=== PATIENT | male | born 1955 | race Caucasian/White ===

== ENCOUNTER 2023-07-07 09:30 | Inpatient (IN) ==
--- NOTE | 2023-07-07 09:55 | Emergency Department Note ---
Impression & Plan Elevated LFTs, Acute kidney injury superimposed on CKD, Acidosis ED Provider Note NAME: JACOB WANG AGE: 67 SEX: M : 1955 ARRIVES VIA: Walk-In INFORMANT: Patient, ED PROVIDER(S): Lazarus Fierro DO CHIEF COMPLAINT: Abnormal liver studies HPI: The patient is a 67-year-old male who presented to the emergency department for evaluation of abnormal liver studies. The patient is currently being treated for kidney cancer. He was seen at the cancer center today. He has been fatigued recently. He was supposed to present for immunotherapy. He had some laboratory studies which showed very elevated liver studies. He was sent to the ER for admission. ROS: See above HPI for pertinent positives & negatives. A total of 10 systems reviewed and were otherwise negative. PAST MEDICAL HISTORY: See Below PAST SURGICAL HISTORY: See Below FAMILY HISTORY: See Below SOCIAL HISTORY: See Below HOME MEDICATIONS: See Below ALLERGIES: See Below VITALS: See Below PHYSICAL EXAMINATION: GENERAL: Patient is awake alert in no acute distress patient is resting comfortably and showing no signs of anxiety EYES: The conjunctivae are clear. The pupils are round and reactive. EARS, NOSE, MOUTH AND THROAT: The nose is without any evidence of any deformity. NECK: The neck is nontender and supple. RESPIRATORY: Normal respiratory effort is noted there is no evidence of wheezing rhonchi or rales CARDIOVASCULAR: Regular rate and rhythm noted there no murmurs rubs or gallops normal S1 normal S2. GASTROINTESTINAL: The abdomen is soft. Abdomen is nontender. MUSCULOSKELETAL/EXTREMITIES: There is no evidence of gross deformity full range of motion is noted in the hips and shoulders. SKIN: There is pedal edema noted bilaterally. Skin is warm and dry.. NEUROLOGIC: Patient is awake alert and oriented x3 MEDICAL DECISION MAKING: The patient is a 67-year-old male who presented to the emergency department for an evaluation of abnormal LFTs. The patient is receiving immunotherapy for renal cancer. The patient was sent to the emergency department for further evaluation as well as admission. The patient's oncologist did talk to the [facility] hospitalist. I discussed the patient's laboratory and radiographic studies with him. I discussed his condition with the on-call [facility] hospitalist. They have agreed to evaluate the patient in the emergency department for further management and disposition. Ultimately he was found to have an elevation in his creatinine as well. He was found to have acidosis. Triage Nursing notes reviewed. Prior medical records reviewed Vital Signs: reviewed and remarkable for tachycardia. Differential diagnosis: Infection, dehydration, metabolic abnormality, hypo/hyperglycemia, electrolyte disturbance, anemia, hypoxia, cardiac sources, intracerebral event, toxicologic, neurologic, as well as other pathologies. ER treatment provided: See below Diagnostics interpreted by me: ECG: EKG was obtained in the emergency department. My interpretation is atrial fibrillation at 97 bpm. PVCs were noted. There is no acute ST segment abnormalities noted. Incomplete right bundle-branch block pattern was noted. No previous tracing was available. Cardiac Monitoring: An order was placed for continuous cardiac monitoring. The monitor shows a rate of 101 bpm with atrial fibrillation. Laboratory studies: As stated above and show below. Imaging studies: See below. Radiographic imaging was reviewed by myself Consultation(s): I discussed this case with Dr. Funez who is on-call for the [facility] hospitalist group Past Med/Surg History Medical History Hypercholesterolemia Hypertension Hypothyroidism Surgical History S/p nephrectomy Family History Mother Cancer mother - bowel Social History Smoking Status: Never smoker Preferred Language: Vincentian Current Living Situation: Spouse current occupational status: employed Feels Safe at Home: Yes Allergies Allergies Allergy/AdvReac Type Severity Reaction Status Date / Time No Known Allergies Allergy Verified 05/20/23 14:12 Home Meds Home Medications Medication Instructions Recorded Confirmed apixaban 5 mg tablet 5 mg PO BID #60 tabs 11/11/18 07/07/23 furosemide 40 mg tablet 40 mg PO .COMPLEX 11/11/18 07/07/23 metoprolol tartrate 25 mg tablet 25 mg PO BID #180 tabs 11/11/18 07/07/23 multivitamin 1 tab PO DAILY 11/11/18 07/07/23 tadalafil 20 mg tablet 20 mg PO .COMPLEX PRN Other 11/11/18 07/07/23 glucosamine sulfate 1,000 mg tablet 2,000 mg PO BID 08/30/20 07/07/23 cholecalciferol (vitamin D3) 50 2,000 unit PO DAILY #30 tabs 10/15/22 07/07/23 mcg (2,000 unit) tablet levothyroxine 150 mcg tablet 200 mcg PO DAILY #30 tabs 10/15/22 07/07/23 rosuvastatin 20 mg tablet (Crestor) 10 mg PO DAILY 12/17/22 07/07/23 amoxicillin 500 mg capsule 2,000 mg PO UD PRN dental tripp. 07/07/23 07/07/23 betamethasone, augmented 0.05 % 1 applic topical BID PRN Other 07/07/23 07/07/23 topical cream Previous Rx's Medication Instructions Recorded losartan 100 mg tablet 100 mg PO DAILY #90 tabs 12/23/22 empagliflozin 10 mg tablet 10 mg PO DAILY #90 tabs 04/08/23 Results & Data (ED) Vital Signs Vital Signs - 24 hr 07/07/23 09:31 07/07/23 09:39 07/07/23 09:50 Temperature 36.3 C L Temperature Source Temporal Artery Scan Pulse Rate 106 H Respiratory Rate 18 Respiratory Effort / Characteristics Non-Labored Spontaneous Respiratory Depth Normal Blood Pressure 109/75 Blood Pressure Mean 86 Pulse Oximetry 95 95 Oxygen Delivery Method Room Air Room Air Sepsis New/Unexplained Change in Mental Status No Sepsis Action Taken by Nursing No Action Required 07/07/23 10:00 Temperature Temperature Source Pulse Rate 101 H Respiratory Rate Respiratory Effort / Characteristics Respiratory Depth Blood Pressure Blood Pressure Mean Pulse Oximetry Oxygen Delivery Method Sepsis New/Unexplained Change in Mental Status Sepsis Action Taken by [facility] Medications Current Medication List: was personally reviewed by me Laboratory Data Attestation: I reviewed the patient's lab results. 07/07/23 10:30 07/07/23 10:30 Lab Results 07/07/23 Range/Units 10:30 WBC 5.44 (4.8-10.8) K/ul RBC 4.61 L (4.70-6.10) M/uL Hgb 12.6 L (14.0-18.0) g/dl Hct 38.5 L (42.0-52.0) % MCV 83.5 (80.0-100.0) fL MCH 27.3 (25.0-34.0) pg MCHC 32.7 (32.0-36.0) g/dL RDW Std Deviation 55.7 H (36.4-46.3) fL RDW Coeff of Nick 18.5 H (11.5-14.5) % Plt Count 147 (130-400) K/uL MPV 11.3 (9.4-12.4) fL Immature Gran % (Auto) 1.1 % Neut % (Auto) 75.0 % Lymph % (Auto) 14.3 % [place] % (Auto) 7.2 % Eos % (Auto) 1.5 % Baso % (Auto) 0.9 % Neut # (Auto) 4.08 (1.40-6.50) K/uL Lymph # (Auto) 0.78 L (1.20-3.40) K/uL [place] # (Auto) 0.39 (0.11-0.59) K/uL Eos # (Auto) 0.08 (0.00-0.50) K/uL Baso # (Auto) 0.05 (0.00-0.20) K/uL Immature Gran # (Auto) 0.06 (0.01-0.20) K/uL PT 13.0 H (9.0-12.0) Seconds INR 1.2 H (0.9-1.1) APTT 57 H (21-31) Seconds PTT Ratio 2.0 Sodium 133 L (136-145) mmol/L Potassium 4.8 (3.5-5.1) mmol/L Chloride 106 (98-107) mmol/L Carbon Dioxide 15 L (21-32) mmol/L Anion Gap 12 H (3-11) BUN 105 H (6-23) mg/dl Creatinine 6.15 H* (0.6-1.4) mg/dl Est Cr Clr Drug Dosing 17.8 ml/min Est GFR ( Amer) 9.9 ml/min Est GFR (Non-Af Amer) 8.5 ml/min BUN/Creatinine Ratio 17.1 (10-20) Glucose 197 H (70-99(Fasting)) mg/dl Calcium 10.3 (8.6-10.3) mg/dl Total Bilirubin 1.1 H (0.2-1.0) mg/dl Direct Bilirubin 0.5 H (0-0.2) mg/dl AST 429 H (13-39) U/L ALT 462 H (7-52) U/L Alkaline Phosphatase 323 H (34-104) U/L Troponin I High Sens 43.0 H (0-20) pg/ml Total Protein 6.4 (6.0-8.3) gm/dl Albumin 2.9 L (3.4-5.0) gm/dl Globulin 3.5 (2.5-4.0) gm/dl Albumin/Globulin Ratio 0.8 L (0.9-2) Lipase 369 H (11-82) U/L Acetaminophen < 3 L (10-30) ug/ml Administered Medications Lactated Ringer's (Lr) 1,000 mls @ 999 mls/hr IV .Q1H1M ONE Stop: 07/07/23 12:30 Last Admin: 07/07/23 11:41 Dose: 999 mls/hr Documented By: MERVAT Discontinued Medications Methylprednisolone (Methylprednisolone 125 Mg/2 Ml Vial) 75 mg IV NOW STA Stop: 07/07/23 11:07 Last Admin: 07/07/23 11:42 Dose: 75 mg Documented By: MERVAT Imaging Data Attestation: I personally reviewed and interpreted this imaging study as follows: My Impression: Ultrasound of the right upper quadrant was obtained in the emergency department. My interpretation was no large ascites, final report below. Radiologist's Impression: Gallbladder Ultrasound 07/07/23 09:50 ULTRASOUND RIGHT UPPER QUADRANT ABDOMEN CLINICAL HISTORY: Elevated hepatic transaminases. COMPARISON STUDY: No priors. TECHNIQUE: Real-time, grayscale, and color flow sonography of the right upper quadrant of the abdomen was performed. Images are reviewed in the transverse and longitudinal planes. FINDINGS: Liver: The liver is enlarged and demonstrates heterogeneous increased echotexture indicating steatosis. There is no intrahepatic biliary ductal dilatation. The main portal vein is patent. Gallbladder: The gallbladder is contracted and no dilated. The wall appears thickened. No shadowing gallstones are clearly identified. There is no pericholecystic fluid. A sonographic Carter's sign is reportedly absent. The common bile duct measures up to 0.7 cm in diameter. Pancreas: Visualized portions of the pancreatic head and body are normal in appearance. Right kidney: The right kidney is not identified and reported surgically absent. Ascites: None. Pleural spaces: Trace right pleural effusion is noted. IMPRESSION: 1. Hepatomegaly with hepatic steatosis. 2. The gallbladder is contracted and the wall appears thickened. This is nonspecific and not well evaluated. Correlate clinically. 3. No shadowing gallstones are identified and there is no convincing sonographic evidence of acute cholecystitis. 4. Right pleural effusion. ACT 112: Negative or not required by law. Electronically signed by: Vladimir Yen M.D. 07/07/2023 11:11 AM Discharge Plan Visit Data Chief Complaint: Abnormal Labs/Diagnostic Testing Stated Complaint: REF BY [facility], ABN LABS ED Provider: Lazarus Fierro Discharge Problem: Elevated LFTs, Acute kidney injury superimposed on CKD, Acidosis Patient Disposition: Admitted As Inpatient Discharge Instructions Interventions: ED Discharge Assessment Last Done: 07/07/23 10:55
--- NOTE | 2023-07-07 10:33 | History & Physical Report ---
Date of Service July 07, 2023 Assessment & Plan (1) Elevated LFTs: Plan: -Admit to the PCU on tele -Currently stable and non-toxic appearing -[facility] due to concerns for immunotherapy induced hepatitis -LFT's this am noted to have a total bili of 1.2, ALT of 458, AST of 427, and alk phos of 323 -RUQ US has been obtained and is in process, will follow -Will follow CBC, CMP, PT/INR, lactate, ABG, acute hepatitis panel, tylenol level, and high sen trop ordered at the time of admission -Spoke with Dr. Grijalva, appreciate her help, recommends admission to start 1mg/kg Solu-medrol daily >Will start 75 mg IV Solu-Medrol BID for now -Oncology consult ordered -Avoid hepatotoxic agents -If LFT's are not improving on current treatment plan, could consider tick borne panel for further evaluation -Monitor daily LFTs -Home Elqiuis for DVT PPX if renal function has not declined further since this am -HH/DMII diet with 2gm sodium restriction and low potassium until renal function is stable -AM CBC, CMP, mag, PT/INR (2) Acute kidney injury superimposed on CKD: Plan: -Cr noted to be 6.11 with BUN of 105 on outpatient CMP prior to ED arrival -Baseline Cr is ~3.5, per last Nephrology clinic note on 05/20/23 -Patient appears dehydrated on exam with reported poor oral intake and ongoing lasix/Jardiance use over the past 2 weeks -Likely pre-renal in nature but cannot rule out intrinsic or obstructive etiology at this time -Will obtain a bladder scan to monitor for retention -Will give 1L LR bolus now then begin maintenance LR until his PO intake improves -Monitor volume status and intake/output closely moving forward -Monitor daily renal function and electrolytes -If his kidney function does not improve would consult Nephrology (3) High anion gap metabolic acidosis: Plan: -AG noted to be 12 with bicarb of 14 on outpatient am CMP prior to ED arrival -AG still at 12 with bicarb of 15 on repeat CMP -Looks clinically well -Will obtain stat lactate and abd for further evaluation -Likely due to dehydration -Will start IV fluids per MARILEE plan (4) Hyperglycemia: Plan: -Noted to be hyperglycemic at 249 this am prior to ED admission -BSG of 197 on repeat labs in the ED -Patient's last Hgb A1c on 06/26/23 was 6.3 -Was started on Jardiance for his CHF and CKD -Hold Jardiance for now -Monitor BSG q6h until stable, goal is 110-160 on IV steroids -Will start 5 units lantus BID -Start CF of 30 and CR of 10 q6h for now -Pharmacy glycemic consult placed for increased risk of ongoing hyperglycemic with IV steroid treatment (5) Generalized weakness: Plan: -Likely due to dehydration, MARILEE, elevated LFT's, and current renal cell carcinoma on immunotherapy -No infectious signs/symptoms at this time -Continue to monitor for improvement with treatment of his acute medical issues (6) Hypothyroidism: Plan: -Continue levothyroxine (7) Renal cell carcinoma: Plan: -Oncology consult placed to follow while admitted -Last dose of immunotherapy was on 06/16/23, was supposed to have 4th cycle this am -Continue to follow with Oncology on discharge (8) Hypertension: Plan: -Stable -Holding lasix and Jardiance with MARILEE and dehydration -Will hold losartan for now with soft BP on arrival -Can continue metoprolol for now (9) Heart failure with preserved ejection fraction: Plan: -Currently dehydrated on exam -Hold lasix and Jardiance -Continue IV hydration overnight -Monitor volume status closely moving forward (10) SARAH (obstructive sleep apnea): Plan: -HS CPAP ordered Plan The patient was discussed with Dr. Yeboah at the time of the admission History of Present Illness Chief Complaint: Abnormal outpatient labs Primary Care Provider: Veronica Tucker MD [place] is a 67 year old male with a PMH significant for Renal cell carcinoma S/P radical right nephrectomy in 2009 (on Nivolumab and Ipilimumab), aortic stenosis S/P TAVR in November of 2022, afib (on eliquis), hypothyroidism, stage IV CKD, SARAH on CPAP, HFpEF, and HTN who presented to the [facility] ED on 07/07/23 [facility] due to concerns for elevated LFTs. History obtained [facility] who explained that the patient was supposed to receive his next dose of immunotherapy today but this was held due to elevated LFTs on pre-treatment labs. High suspicion for immunotherapy induced hepatitis. On arrival to the ED the patient was noted to be tachycardic at 106 but otherwise stable. CMP from this am prior to ED arrival was significant for a Cr of 6.11 (baseline is ~3.5 per last Nephrology note), BUN of 105, AG of 12 with bicarb of 14, corrected sodium of 133, glucose of 249, total bili of 1.2, AST of 427, ALT of 458, alk phos of 323, with acute hepatitis panel in process. RUQ US was obtained but is in process. At the time of the exam the patient was sitting in bed in no acute distress with his bedside, history was obtained from both. Over the past 2 weeks the patient has been experiencing progressive generalized weakness and malaise. Oral intake has been poor over this time, he continue to take all medications as prescribed including his lasix and Jardiance. Denies recent fever, chills, chest pain, cough, congestion, sore throat, abd pain, nausea, vomiting, diarrhea, dysuria, hematuria, decreased urine output, increased LE swelling, and recent trauma. Denies excessive acetaminophen use and has not used NSAID's recently. He is a full code and his is his POA. Please refer to Dr. Yeboah's attestation for any changes to the treatment plan Allergies Allergy/AdvReac Type Severity Reaction Status Date / Time No Known Allergies Allergy Verified 05/20/23 14:12 Home Medications Medication Instructions Recorded Confirmed Type apixaban 5 mg tablet 5 mg PO BID #60 tabs 11/11/18 07/07/23 History furosemide 40 mg tablet 40 mg PO .COMPLEX 11/11/18 07/07/23 History metoprolol tartrate 25 mg tablet 25 mg PO BID #180 tabs 11/11/18 07/07/23 History multivitamin 1 tab PO DAILY 11/11/18 07/07/23 History tadalafil 20 mg tablet 20 mg PO .COMPLEX PRN Other 11/11/18 07/07/23 History glucosamine sulfate 1,000 mg tablet 2,000 mg PO BID 08/30/20 07/07/23 History cholecalciferol (vitamin D3) 50 2,000 unit PO DAILY #30 tabs 10/15/22 07/07/23 History mcg (2,000 unit) tablet levothyroxine 150 mcg tablet 200 mcg PO DAILY #30 tabs 10/15/22 07/07/23 History rosuvastatin 20 mg tablet (Crestor) 10 mg PO DAILY 12/17/22 07/07/23 History losartan 100 mg tablet 100 mg PO DAILY #90 tabs 12/23/22 07/07/23 Rx empagliflozin 10 mg tablet 10 mg PO DAILY #90 tabs 04/08/23 07/07/23 Rx amoxicillin 500 mg capsule 2,000 mg PO UD PRN dental tripp. 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: No Beliefs That Will Affect Care: None Current Living Situation: Spouse current occupational status: employed Feels Safe at Home: Yes Safety Concerns: Feels Safe At This Time Physical Exam Physical Exam: Physical Exam: General: In no acute distress, stated age, non-toxic appearing HEENT: Normocephalic, atraumatic, no scleral icterus, pupils around round, symmetrical, and reactive to light, dry mucus membranes, trachea midline, no thyromegaly Chest/Pulm: No respiratory distress, symmetrical chest expansion, clear breath sounds throughout Cardiac: irregular rate and rhythm, 3/6 systolic murmur noted in the aortic region Abdomen: Negative for ascites and bruising, normoactive bowel sounds, soft, non-tender to palpation throughout Musculoskeletal: Symmetrical and without signs of acute trauma, upper and lower extremities with full ROM, no atrophy, spasticity, or flaccidity Extremities: Radial, dorsalis pedis, and posterior tibial pulses are intact and symmetrical, no edema noted in the BL LE's Skin: Warm, dry, no rashes , lesions, or scars noted Neuro: Alert and oriented to person, place, month, year, and president, no focal defects, no tremors noted Psych: No acute distress, calm and cooperative during the exam Results & Data Results & Data Vital Signs (Past 12 Hours) Vital Signs Temp Pulse Resp BP Pulse Ox O2 Del Method 07/07/23 10:00 101 H 07/07/23 09:39 36.3 C L 106 H 18 109/75 95 Room Air ECG Additional Comments: Atrial fibrillation with premature ventricular or aberrantly conducted complexes Incomplete right bundle branch block Abnormal ECG No previous ECGs available Code Status & VTE Plan Code Status Full code VTE Prophylaxis Plan VTE Prophylaxis will be ordered: Yes Supervising Physician Co-Signing Physician Notes Patient seen and examined, chart reviewed, case discussed with Alfredo Tubbs and I agree with the assessment and plan as above except as otherwise noted Labs and images reviewed 67-year-old male with a past medical history of stage I right renal cell carcinoma s/p radical nephrectomy 2009, CKD 3, aortic stenosis post TAVR with bioprosthetic valve 2022, A-fib on Eliquis anticoagulation, and stage IV left renal cell carcinoma who has received ipimimumab/nivolumab therapy [facility] who presents with 2 weaks of generalized weakness, malaise, alternating 40mg-80mg PO lasix despite progressively poor PO intake, who presents on referral from [facility] for conerns of transaminitis. Patient was to have therapy today however outpatient labs did show an MARILEE with baseline creatinine around 2.83.5, although recently up to 4.5, elevated to 6.11/6.15 in the ER, with a uptrending transaminitis from mid 200s now mid 400s with mildly elevated bilirubin. Patient was suspected to have prerenal MARILEE with very poor p.o. 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 While in ER liver ul trasound shows hepatomegaly with hepatic steatosis, gallbladder is contracted with some wall thickening nonspecific, no gallstones or over evidence of acute cholecystitis or choledocholithiasis is seen.? Trace pleural effusion, patient has no shortness of breath or hypoxia. No pulmonary symptoms. Hepatitis serology is pending. Patient has been started on 1 mg/kg of prednisone for potential chemo induced hepatitis. Will also continue hydration for clinical volume contraction with MARILEE, agree with balance crystalloid resuscitation and maintenance fluids until p.o. improves as above; hold Lasix and trend BMP. Anion gap is slightly elevated, bicarb is suppressed at 15, BSG is in the mid 100s; do not suspect DKA or euglycemic DKA; suspect volume contracted? Lactic acidosis/metabolic acidosis. Agree with fluids and repeat assessment as above. Lactate is pending. PG Care Time/CCT Total # of Minutes Spent Total Time Spent with Patient: Total time spent is greater than 50% in coordination of care (as documented) at patient's floor/unit and/or counseling patient: [place] [address] INT INP/OBS CARE 3/75MIN Patient Type Established Medical Decision Making High Complexity Diagnoses Elevated LFTs R79.89 Acute kidney injury superimposed on CKD N17.9; N18.9 High anion gap metabolic acidosis E87.29 Hyperglycemia R73.9 Generalized weakness R53.1 Hypothyroidism E03.9 Renal cell carcinoma C64.9 Hypertension I10 Heart failure with preserved ejection fraction I50.30 SARAH (obstructive sleep apnea) G47.33
[2023-07-07] MEDS ORDERED: GLUCOSE 10 TAB/TUBE PO PRN (10:37)
[2023-07-07] MEDS ORDERED: GLUCAGON FOR INJ 1 MG VIAL SQ PRN (10:37)
[2023-07-07] MEDS ORDERED: PHARMACY GLYCEMIC MGMT CONSULT PRN (10:37)
[2023-07-07] MEDS ORDERED: CARBOHYDRATES FOR HYPOGLYCEMIA PO PRN (10:37)
[2023-07-07] MEDS ORDERED: DEXTROSE 50% 50 ML SYRINGE IV PRN (10:37)
[2023-07-07] MEDS ORDERED: GLUCOSE 40% GEL 15 GM TUBE PO PRN (10:37)
[2023-07-07 11:09] LABS: Basophils # (auto) 0.05 K/uL (0.00-0.20); Basophils % (auto) 0.9 %; Eosinophils # (auto) 0.08 K/uL (0.00-0.50); Eosinophils % (auto) 1.5 %; Hematocrit (blood only) 38.5 % (42.0-52.0); Hemoglobin 12.6 g/dl (14.0-18.0); Immature Granulocytes # (auto) 0.06 K/uL (0.01-0.20); Immature Granulocytes % (auto) 1.1 %; Lymphocytes # (auto) 0.78 K/uL (1.20-3.40); Lymphocytes % (auto) 14.3 %; Mean Corpuscular Hemoglobin 27.3 pg (25.0-34.0); Mean Corpuscular Hgb Conc 32.7 g/dL (32.0-36.0); Mean Corpuscular Volume 83.5 fL (80.0-100.0); Mean Platelet Volume 11.3 fL (9.4-12.4); Monocytes # (auto) 0.39 K/uL (0.11-0.59); Monocytes % (auto) 7.2 %; Neutrophils # (auto) 4.08 K/uL (1.40-6.50); Platelet Count 147 K/uL (130-400); RDW Coefficient of Variation 18.5 % (11.5-14.5); RDW Standard Deviation 55.7 fL (36.4-46.3); Red Blood Count 4.61 M/uL (4.70-6.10); White Blood Count 5.44 K/ul (4.8-10.8)
--- NOTE | 2023-07-07 11:13 | Ultrasound Report ---
ULTRASOUND RIGHT UPPER QUADRANT ABDOMEN CLINICAL HISTORY: Elevated hepatic transaminases. COMPARISON STUDY: No priors. TECHNIQUE: Real-time, grayscale, and color flow sonography of the right upper quadrant of the abdomen was performed. Images are reviewed in the transverse and longitudinal planes. FINDINGS: Liver: The liver is enlarged and demonstrates heterogeneous increased echotexture indicating steatosi s. There is no intrahepatic biliary ductal dilatation. The main portal vein is patent. Gallbladder: The gallbladder is contracted and no dilated. The wall appears thickened. No shadowing g allstones are clearly identified. There is no pericholecystic fluid. A sonographic Carter's sign is r eportedly absent. The common bile duct measures up to 0.7 cm in diameter. Pancreas: Visualized portions of the pancreatic head and body are normal in appearance. Right kidney: The right kidney is not identified and reported surgically absent. Ascites: None. Pleural spaces: Trace right pleural effusion is noted. IMPRESSION: 1. Hepatomegaly with hepatic steatosis. 2. The gallbladder is contracted and the wall appears thickened. This is nonspecific and not well murphy luated. Correlate clinically. 3. No shadowing gallstones are identified and there is no convincing sonographic evidence of acute ch olecystitis. 4. Right pleural effusion. ACT 112: Negative or not required by law. Electronically signed by: Vladimir Yen M.D. 07/07/2023 11:11 AM
[2023-07-07 11:18] LABS: Albumin Globulin Ratio 0.8 (0.9-2); Albumin Level 2.9 gm/dl (3.4-5.0); BUN Creatinine Ratio 17.1 (10-20); Bilirubin Direct 0.5 mg/dl (0-0.2); Bilirubin,Total 1.1 mg/dl (0.2-1.0); Calcium 10.3 mg/dl (8.6-10.3); Creatinine Clr Calc Pharmacy 17.8 ml/min; Est GFR (African American) 9.9 ml/min; Est GFR (Non-African American) 8.5 ml/min; Globulin 3.5 gm/dl (2.5-4.0); Potassium 4.8 mmol/L (3.5-5.1); Total Protein 6.4 gm/dl (6.0-8.3)
[2023-07-07 11:24] LABS: INR 1.2 (0.9-1.1); Partial Thromboplastin Time 57 Seconds (21-31)
--- NOTE | 2023-07-07 11:24 | History & Physical Report ---
Date of Service July 07, 2023 Assessment & Plan Admission and Anticipated Discharge Date Admission Date: July 07, 2023 History of Present Illness Primary Care Provider: Veroinca Tucker MD Allergies Allergy/AdvReac Type Severity Reaction Status Date / Time No Known Allergies Allergy Verified 05/20/23 14:12 Home Medications Medication Instructions Recorded Confirmed Type apixaban 5 mg tablet 5 mg PO BID #60 tabs 11/11/18 07/07/23 History furosemide 40 mg tablet 40 mg PO .COMPLEX 11/11/18 07/07/23 History metoprolol tartrate 25 mg tablet 25 mg PO BID #180 tabs 11/11/18 07/07/23 History multivitamin 1 tab PO DAILY 11/11/18 07/07/23 History tadalafil 20 mg tablet 20 mg PO .COMPLEX PRN Other 11/11/18 07/07/23 History glucosamine sulfate 1,000 mg tablet 2,000 mg PO BID 08/30/20 07/07/23 History cholecalciferol (vitamin D3) 50 2,000 unit PO DAILY #30 tabs 10/15/22 07/07/23 History mcg (2,000 unit) tablet levothyroxine 150 mcg tablet 200 mcg PO DAILY #30 tabs 10/15/22 07/07/23 History rosuvastatin 20 mg tablet (Crestor) 10 mg PO DAILY 12/17/22 07/07/23 History losartan 100 mg tablet 100 mg PO DAILY #90 tabs 12/23/22 07/07/23 Rx empagliflozin 10 mg tablet 10 mg PO DAILY #90 tabs 04/08/23 07/07/23 Rx amoxicillin 500 mg capsule 2,000 mg PO UD PRN dental tripp. 07/07/23 07/07/23 History betamethasone, augmented 0.05 % 1 applic topical BID PRN Other 07/07/23 07/07/23 History topical cream Past Med/Surg History Medical History Hypercholesterolemia Hypertension Hypothyroidism Surgical History S/p nephrectomy Family History Mother Cancer mother - bowel Social History Smoking Status: Never smoker Preferred Language: Mosotho Current Living Situation: Spouse current occupational status: employed Feels Safe at Home: Yes Results & Data Results & Data Vital Signs (Past 12 Hours) Vital Signs Temp Pulse Resp BP Pulse Ox O2 Del Method 07/07/23 10:00 101 H 07/07/23 09:50 95 Room Air 07/07/23 09:39 36.3 C L 106 H 18 109/75 95 Room Air Code Status & VTE Plan VTE Prophylaxis Plan VTE Prophylaxis will be ordered: Yes Supervising Physician Co-Signing Physician Notes Patient seen and examined, chart reviewed, case discussed with Alfredo Tubbs and I agree with the assessment and plan as above except as otherwise noted Labs and images reviewed 67-year-old male with a past medical history of 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 Patient was to have therapy today however outpatient labs did show an MARILEE with baseline creatinine around 2.83.5, although recently up to 4.5, elevated to 6.11/6.15 in the ER, with a uptrending transaminitis from mid 200s now mid 400s with mildly elevated bilirubin. Patient was suspected to have prerenal MARILEE with very poor p.o. 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 While in ER liver ultrasound shows hepatomegaly with hepatic steatosis, gallbladder is contracted with some wall thickening nonspecific, no gallstones or over evidence of acute cholecystitis or choledocholithiasis is seen.? Trace pleural effusion, patient has no shortness of breath or hypoxia. No pulmonary symptoms. Hepatitis serology is pending. Patient has been started on 1 mg/kg of prednisone for potential chemo induced hepatitis. Will also continue hydration for clinical volume contraction with MARILEE, agree with balance crystalloid resuscitation and maintenance fluids until p.o. improves as above; hold Lasix and trend BMP. Anion gap is slightly elevated, bicarb is suppressed at 15, BSG is in the mid 100s; do not suspect DKA or euglycemic DKA; suspect volume contracted? Lactic acidosis/metabolic acidosis. Agree with fluids and repeat assessment as above. Lactate is pending. PG Care Time/CCT Total # of Minutes Spent Total Time Spent with Patient: Total time spent is greater than 50% in coordination of care (as documented) at patient's floor/unit and/or counseling patient: Coding
[2023-07-07 11:36] LABS: Allen Test Pos (Pos); Base Excess ABG -12.9 mEq/L (-9-1.8); HCO3 ABG 12 mmol/L (19-24); Oxygen Saturation ABG 98.4 % (90-95); PCO2 ABG 25 mmHg (35-46); PO2 ABG 101 mmHg (80-95); pH ABG 7.29 (7.35-7.45)
[2023-07-07] MEDS: LACTATED RINGER'S 1,000 ML IV ONE (11:41)
[2023-07-07] MEDS: methylPREDNISolone 125 MG/2 ML VIAL IV STA (11:42)
--- NOTE | 2023-07-07 12:14 | Oncology Consultation ---
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 Also has worsening in baseline CKD possibly prerenal versus immunotherapy induced -Obtain acute hepatitis panel to rule out other potential causes of LFT abnormalities. Also abdominal imaging -Initiate IV methylprednisolone 1 mg/kg/day. If no improvement after 3 days, consider adding steroid-sparing immunosuppressive therapy such as mycophenolate close until 500 mg twice daily along with steroids -Consider nephrology evaluation Thank you for this consult. Oncology will continue following patient while he is in the hospital. Please feel free to call if you have any further questions. History of Present Illness Reason for Consultation: Transaminitis immunotherapy likely secondary to immunotherapy Attending Physician: Glen Yeboah MD History of Present Illness 67-year-old gentleman with multiple comorbidities including Stage 1 right renal cell carcinoma s/p radical nephrectomy in 2009, CKD Stage 3, aortic stenosis s/p TAVR with bioprosthetic valve on 12/14/2022, atrial fibrillation on Eliquis who was recently diagnosed with stage IV left renal cell carcinoma. He started immunotherapy treatment with ipilimumab/nivolumab per recommendation from [facility] On 05/05/2023. He received cycle 3 of treatment on 06/16/2023 will scheduled to receive cycle 4 of treatment today. However, pretreatment labs revealed transaminitis with AST of 532, ALT of 520, alkaline phosphatase of 419. Total bilirubin was 1.3 and creatinine was also noted to be elevated at 6.2 with BUN of 100. Due to concern for immunotherapy induced hepatotoxicity, advised presentation to the ER. He complains of fatigue, poor appetite over the past 1 week. Levothyroxine was recently adjusted by PCP due to TSH of 12 Allergies Allergy/AdvReac Type Severity Reaction Status Date / Time No Known Allergies Allergy Verified 05/20/23 14:12 Home Medications Medication Instructions Recorded Confirmed Type apixaban 5 mg tablet 5 mg PO BID #60 tabs 11/11/18 07/07/23 History furosemide 40 mg tablet 40 mg PO .COMPLEX 11/11/18 07/07/23 History metoprolol tartrate 25 mg tablet 25 mg PO BID #180 tabs 11/11/18 07/07/23 History multivitamin 1 tab PO DAILY 11/11/18 07/07/23 History tadalafil 20 mg tablet 20 mg PO .COMPLEX PRN Other 11/11/18 07/07/23 History glucosamine sulfate 1,000 mg tablet 2,000 mg PO BID 08/30/20 07/07/23 History cholecalciferol (vitamin D3) 50 2,000 unit PO DAILY #30 tabs 10/15/22 07/07/23 History mcg (2,000 unit) tablet levothyroxine 150 mcg tablet 200 mcg PO DAILY #30 tabs 10/15/22 07/07/23 History rosuvastatin 20 mg tablet (Crestor) 10 mg PO DAILY 12/17/22 07/07/23 History losartan 100 mg tablet 100 mg PO DAILY #90 tabs 12/23/22 07/07/23 Rx empagliflozin 10 mg tablet 10 mg PO DAILY #90 tabs 04/08/23 07/07/23 Rx amoxicillin 500 mg capsule 2,000 mg PO UD PRN dental tripp. 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
--- NOTE | 2023-07-07 12:59 | Pharmacy Report ---
Pharmacy Glycemic Short Note 2 - Date of Service July 07, 2023 - Glycemic Short BSG Results (Last 24 hours): 07/07/23 07/07/23 10:30 11:06 Glucose 197 H POC Glucose 157 H OUTPATIENT ANTIDIABETIC REGIMEN: * Jardiance 10 mg PO daily HbA1c: 6.3% (06/26/23) ASSESSMENT: * DB is a 67 year old male who presents to ED today from [facility] due to elevated liver enzymes * Concern for immunotherapy-induced hepatitis in addition to MARILEE/CKD (SCr: 6.15 mg/dL) * Plan is for 1 mg/kg/day of methylprednisolone - 75 mg IV BID * Tighten Novolog parameters, increase basal as needed while on steroids PLAN FOR INPATIENT GLYCEMIC CONTROL: * Hold outpatient oral diabetes medications * Basal insulin * Lantus 15 units SC x 1 now * Lantus 0-15-25 units SC HS * Bolus insulin * NovoLog per scale ACHS or Q6hrs while NPO * Goal Range: Low 110 mg/dL - High 140 mg/dL * Correction Factor: 20 mg/dL/unit * Nutritional / Prandial insulin per carb ratio of 1 unit per 6 grams CHO consumed * , checks with same parameters
--- OUTSIDE RECORDS SUMMARY | 2023-07-07 13:10 | External Medical Summary | Continuity of Care Document ---
Author Name Unknown Address [address] [place] [address] Phone [facility] Address [address] [place] [address] Phone Support Name Relationship Address Phone Veronica Tucker Primary Care Provider [address] [place] [address] Lazarus Levy Attending Provider [address] [place] [address] Chief Complaint and Reason for Visit Chief Complaint EKG Allergies, Adverse Reactions, Alerts No known allergies Social History Smoking Status Status Start Date End Date Date of Observa tion Never smoked tobacco (finding) August 21, 2022 7:21am Observation Status Observation Response Date of Response Smokeless Tobacco Use None August 21, 2022 7:21am Additional Data Assigned Sex Male Family History Relationship Condition Age at Onset Recorded Date/T adrian Parent Malignant neoplasm Unknown Parent Cerebral apoplexy Unknown Problems Active Problems Medical Problem Onset Date Status Status post nephrectomy Active Essential hypertension September 21, 2015 Active Type 2 diabetes mellitus September 30, 2016 Active Type 2 diabetes mellitus Active Stage 3 chronic kidney disease September 21, 2015 A ctive Stage 3 chronic kidney disease A ctive Congestive heart failure Active Chronic anticoagulation Active Hypothyroidism September 21, 2015 Active Hypothyroidism Active CAD (coronary artery disease), [place] coronary a rtery Active Hyperlipidemia LDL goal <70 Acti ve Persistent atrial fibrillation November 26 Active Deep vein thrombosis (DVT) of lower extremity Ju 2015 Active Nonrheumatic mitral valve regurgitation Septembe r 2018 Active Status post cardiac catheterization May 22 018 Active Status post colonoscopy June 22, 2006 Active Erectile dysfunction associa jenny with type 2 diabetes mellitus November 15, 2015 Active Vitamin D deficiency September 21, 2015 Active Medications Medication Status Dose Units Route Directions Qty Days St art Date End Date Instructions Levothyroxine Sodium (Tirosint) 150 mcg capsule Discontin ued 150 MCG PO daily 2019 1:00am May 28, 2019 5:10pm Levothyroxine Sodium Discontin ued 175 MCG PO daily May 28, 2019 1:00am May 31, 2019 8:29am Levothyroxine Sodium Discontin ued 175 MCG PO daily May 31, 2019 8:28am October 28, 2019 6:27am Levothyroxine Sodium Discontin ued 175 MCG PO daily October 28, 2019 6:27am Sept2019 1:12pm Apixaban (Eliquis) 5 mg tablet Discontin ued 5 MG PO Twice Daily 180 [facility] 2019 2:27pm [facility] er 2019 1:05pm Furosemide Discontin ued 0 PO daily 120 [facility] 2019 2:29pm [facility] er 2019 1:04pm 1 tab daily 4x week, and 2 tabs daily 3x week. Pravastatin Sodium Discontin ued 40 MG PO daily 2019 2:30pm [facility] er 2019 1:05pm Metoprolol Tartrate (Lopressor) 25 mg tablet Discontin ued 25 MG PO Twice Daily 180 [facility] 2019 2:30pm [facility] er 2019 1:05pm Furosemide Discontin ued 0 PO daily 120 [facility] 2019 1:03pm [facility] er 2019 1:05pm take 2 tablets (80mg) po on M,W,F and 1 tablet (40mg) po on T,T,S,S Furosemide Discontin ued 0 PO daily 120 [facility] r 2019 1:04pm Marr 2020 1:04pm take 2 tablets (80mg) po on M,W,F and 1 tablet (40mg) po on T,T,S,S Apixaban (Eliquis) 5 mg tablet Discontin ued 5 MG PO Twice Daily 180 [facility] r 2019 1:05pm Maruar y 2020 1:04pm Metoprolol Tartrate (Lopressor) 25 mg tablet Discontin ued 25 MG PO Twice Daily 180 [facility] r 2019 1:05pm Maruar y 2020 1:04pm Pravastatin Sodium Discontin ued 40 MG PO daily mb r 2019 1:05pm r y 2020 1:04pm Levothyroxine Sodium Discontin ued 175 MCG PO daily e r 2019 2:57pm Februa ry 2020 5:23pm Tadalafil Active 5 MG PO daily r 2019 2:57pm Apixaban (Eliquis) 5 mg tablet Active 5 MG PO Twice Daily March 27, 2020 1:03pm Furosemide Active 0 PO daily 2020 1:03pm take 2 tablets (80mg) po on M,W,F and 1 tablet (40mg) po on T,T,S,S Metoprolol Tartrate (Lopressor) 25 mg tablet Active 25 MG PO Twice Daily March 27, 2020 1:03pm Pravastatin Sodium Discontin ued 40 MG PO daily March 27, 2020 1:03pm July 07, 2020 1:56pm Levothyroxine Sodium Discontin ued 175 MCG PO daily 2020 5:23pm Februa ry 2020 5:29pm Levothyroxine Sodium Active 175 MCG PO daily 2020 5:28pm Apixaban (Eliquis) 5 mg tablet Discontin ued mg PO Twice Daily June 02, 2019 12:00am Septem trever 2019 2:31pm Furosemide Discontin ued 0 PO daily June 02, 2019 12:00am Septem trever 2019 2:31pm 1 tab daily 4x week, and 2 tabs daily 3x week. Pravastatin Sodium Discontin ued 40 MG PO daily June 02, 2019 12:00am Septem trever 2019 2:31pm Metoprolol Tartrate (Lopressor) 25 mg tablet Discontin ued 25 MG PO Twice Daily June 03, 2019 12:00am Septem trever 2019 2:31pm Tadalafil Discontin ued 5 MG PO daily June 03, 2019 12:00am [facility] er 2019 2:57pm Ergocalcifero l (Vitamin D2) (Vitamin D2) 2,000 unit tablet Active 2000 UNIT PO daily June 03, 2019 12:00am Multivitamin (One A Day Vitamin Tab) tablet Active 1 TAB PO Every Morning June 03, 2019 12:00am Glucosamine Sulfate Active 2000 MG PO Twice Daily June 03, 2019 12:00am administer with meals Rosuvastatin Calcium Active 20 MG PO Every Night 90 July 07, 2020 12:00am Levothyroxine Sodium Discontin ued 175 MCG PO daily 90 er 2019 1:11pm Decemb er 2019 2:57pm Immunizations Immunization Event Date Not Given Reason Dose Number Tabulating Supervisor Lot Number Vaccine Information Statement (VIS) Detail Influenza Quadrivalent Vaccine January 06, 2019 Influenza Quadrivalent Vaccine December 28, 2019 [id number] Pneumococcal 13-Valent Conjugate Vaccine June 03, 2019 [id number] Pneumococcal 23-Valent Polysaccharide Vaccine July 28, 2015 Tetanus Diptheria Toxiods October 08, 2010 Advance Directives Advance Directive Response Recorded Date/ Time Do you have Advance Directives? Yes September 11, 2020 10:52am Insurance Providers Guarantor Chase Guadalupe Address [address] [place] [address] Contact Info. Home Phone: Payer Policy Id Coverage Id Subscriber's Name Subscriber Id Effective Date Expiration Date Blue Cross 361 [id number] 1 [id number] 01 Chase Guadalupe [id number] 01 Blue Cross 361 [facility] [id number] Chase Guadalupe [id number] [place] [address] [id number] 1 [id number] 01 Chase Guadalupe [id number] 01 [employer] [id number] 01 Chase Guadalupe [id number] 01 Medicare [id number] Chase Guadalupe [id number] Self Pay Self N/A Encounters Encounter Location(s) Arrival/Admit Date Discharge/Depart Date Provider(s) Departed Referred [facility] June 20, 2023 11:06am June 20, 2023 11:07am Lazraus Levy MD
--- OUTSIDE RECORDS SUMMARY | 2023-07-07 13:10 | External Medical Summary | Continuity of Care Document ---
Author Name Unknown Address [address] [place] [address] Phone [facility] Address [address] [place] [address] Phone Support Name Relationship Address Phone Veronica Tucker Primary Care Provider [address] [place] [address] Lazarus Levy Attending Provider [address] [place] [address] Chief Complaint and Reason for Visit Chief [...] Active Hypothyroidism Active CAD (coronary artery disease), [place] coronary a rtery Active Hyperlipidemia LDL goal [...] ued 5 MG PO Twice Daily 180 [facility] 2019 2:27pm [facility] er 2019 1:05pm Furosemide Discontin ued 0 PO daily 120 [facility] 2019 2:29pm [facility] er 2019 1:04pm 1 tab daily 4x week, and 2 tabs daily 3x week. Pravastatin Sodium Discontin ued 40 MG PO daily 2019 2:30pm [facility] er 2019 1:05pm Metoprolol Tartrate (Lopressor) 25 mg tablet Discontin ued 25 MG PO Twice Daily 180 [facility] 2019 2:30pm [facility] er 2019 1:05pm Furosemide Discontin ued 0 PO daily 120 [facility] 2019 1:03pm [facility] er 2019 1:05pm take 2 tablets (80mg) po on M,W,F and 1 tablet (40mg) po on T,T,S,S Furosemide Discontin ued 0 PO daily 120 [facility] r 2019 1:04pm Marr 2020 1:04pm take 2 tablets (80mg) po on M,W,F and 1 tablet (40mg) po on T,T,S,S Apixaban (Eliquis) 5 mg tablet Discontin ued 5 MG PO Twice Daily 180 [facility] r 2019 1:05pm Maruar y 2020 1:04pm Metoprolol Tartrate (Lopressor) 25 mg tablet Discontin ued 25 MG PO Twice Daily 180 [facility] r 2019 1:05pm Maruar y 2020 1:04pm [...] PO daily June 03, 2019 12:00am [facility] er 2019 2:57pm Ergocalcifero l (Vitamin [...] Event Date Not Given Reason Dose Number Firestop/Containment Worker Lot Number Vaccine Information Statement (VIS) Detail Influenza Quadrivalent Vaccine January 06, 2019 Influenza Quadrivalent Vaccine December 28, 2019 [id number] Pneumococcal 13-Valent Conjugate Vaccine June 03, 2019 [id number] Pneumococcal 23-Valent Polysaccharide Vaccine July 28, 2015 Tetanus Diptheria Toxiods October 08, 2010 Advance Directives Advance Directive Response Recorded Date/ Time Do you have Advance Directives? Yes September 11, 2020 10:52am Insurance Providers Guarantor Chase Guadalupe Address [address] [place] [address] Contact Info. Home Phone: Payer Policy Id Coverage Id Subscriber's Name Subscriber Id Effective Date Expiration Date Blue Cross 361 [id number] 01 Chase Guadalupe [id number] 01 Blue Cross 361 [facility] [id number] Chase Guadalupe [id number] [place] [address] [id number] 1 [id number] 01 Chase Guadalupe [id number] 01 [place] [id number] 1 [id number] 01 Chase Guadalupe [id number] 01 Medicare [id number] Chase Guadalupe [id number] Self Pay Self N/A Encounters Encounter Location(s) Arrival/Admit Date Discharge/Depart Date Provider(s) Departed Referred [facility] June 20, 2023 11:06am June 20, 2023 11:07am Lazarus Levy MD
--- OUTSIDE RECORDS SUMMARY | 2023-07-07 13:10 | External Medical Summary | Continuity of Care Document ---
Author Name Unknown Organization [facility] Address [address] [place] [address] Phone [phone] Care Team Providers Care Mandarin Speaking Nanny Name Role Phone Veronica Tucker MD Care Team Information Direct Casting Operator [phone] Alfredo Timmons MD Care Team Information Direct Casting Operator [phone] Veronica Tucker MD Care Team Information Direct Casting Operator [phone] CHRISSY LEVY MD Care Team Information Receive r [phone] Veronica Tucker MD Primary Care Physician Problems Active Problems Provider Date Essential hypertension Onset: Long-term current use of anticoagulant Onset: Pure hypercholesterolemia Chrissy Levy MD Ons et: 02/09/2021 Atherosclerosis of coronary artery without angina pectoris Chrissy Levy MD Onset: 02/09/2021 Dyspnea Chrissy Levy MD Onset: 2020 Permanent atrial fibrillation Chrissy Levy MD Onset: 02/09/2021 Mitral valve disorder Chrissy Levy MD Onset: 02/09/2021 Proteinuria Chrissy Levy MD Onset: 2020 Body mass index 40+ - severely obese Chrissy carlin MD Onset: 02/09/2021 Social History Type Date Description Comments Sex Unknown Tobacco Use Reviewed: 06/20/23 Never Used Smokeless T obacco ETOH Use 06/20/2023 Denies alcohol use Tobacco Use Reviewed: 06/20/23 Patient has never smok ed Recreational Drug Use 06/20/2023 Never Used Drugs Smoking Status Reviewed: 06/20/23 Patient has never sm oked Allergies and adverse reactions Description No Known Drug Allergies Medications Active Medications SIG Qnty Indications Order ing Provider Date Rosuvastatin Ydctimu37vr Tablets take 1 tablet by mouth daily at bedtime 90tabs Chrissy Levy MD 12/20/2022 Vitamin K4038qh Tablets 1 tab by mouth every day Chrissy Levy MD 12/20/2022 Ujvbgnyimpp533gw Capsules 4 capsules by mouth 1 hour before dental procedure 4caps I25.10 Chrissy Levy MD 01/10/2022 Oeqcfrpng4vm Tablets 1 tab by mouth every day 90tabs Unknown Ylfisje8si Tablets 1 tab by mouth twice a day 180tabs Chrissy Levy MD Ggnipnqtsa89bk Tablets 2 tabs by mouth twice a day for 2 days then take 2 tabs by mouth daily 120tabs Chrissy Levy MD Metoprolol Lngdoxsv38gp Tablets 1 tab by mouth twice a day 180tabs Chrissy Levy MD Levothyroxine Mxkxju513lcl Tablets 1 tab by mouth every morning 10tabs Unknown Vitamin P76232Uhss Tablets 1 tab by mout h every day Unknown MultivitaminTablets 1 tab by mouth every day Unknown Glucosamine 1 cap by mouth twice a day Unknown Losartan Eiyziedsr441ij Tablets 1 tab by mouth every day 30tabs Alfredo Timmons MD Usbtxgrl625ie Capsules 2 caps by mouth every day Unknown Fwmwoqftu29xi Tablets 1 tab by mouth every day 30tabs Alfredo Timmons MD Immunizations CPT Code Status Date Vaccine Lot # [id number] Given 01/01/2022 Moderna Covid-19 Vaccine, Bivalent [id number] Given 01/29/2021 Moderna Covid-19 Vaccine (Low Dose) 88752 Given 06/15/2020 Moderna (Covid- 19) vaccine, mRNA, LNP-S, PF, 100 mcg/ 0.5 mL 32481 Given 05/12/2020 Moderna (Covid- 19) vaccine, mRNA, LNP-S, PF, 100 mcg/ 0.5 mL 26366 Given 12/28/2019 Influenza Virus Vaccine, Quadrivalent, Split, Preservative Free 23587 Given 06/03/2019 Prevnar 13 Pneu mococcal Conjugate Vac 13 Valent For Im Use 57598 Given 01/06/2019 Influenza Virus Vaccine, Quadrivalent, Split, Preservative Free 33328 Given 07/28/2015 Pneumo 23 Pneumococcal Va ccine 2Yrs Or Older 68323 Given 10/08/2010 Tetanus Toxoid Adsorbed, For Intramuscular Use Vital Signs Date Vital Result Comment 06/20/2023 11:24am Height 73 inches 6'1" Weight 361.56 lb Weight 164.005 kg BMI (Body Mass Index) 47.7 kg/m2 BP Systolic 124 mmHg Right Arm BP Diastolic 82 mmHg Right Arm Body Temperature 97.9 F Temporal Heart Rate 83 /min EKG Respiratory Rate 18 /min O2 % BldC Oximetry 96 % Room Air 04/03/2023 2:20pm BP Systolic Sitting 180 mmHg Lef t Arm 197/119 Home Cuff BP Diastolic Sitting 96 mmHg Left Arm 19 7/119 Home Cuff Pulse sitting 86 /min Procedures Date Code Description Status 06/20/2023 3079F Most Recent Diastolic BP 80- 90mm HG Completed 06/20/2023 3074F Most Recent Systolic Blood P ressure <130mm HG Completed 06/20/2023 3008F Body Mass Index (BMI), Docum ented (pv) Completed 04/03/2023 59066 Visit No Charge Completed 03/21/2023 3079F Most Recent Diastolic BP 80- 90mm HG Completed 03/21/2023 3077F Most Recent Systolic BP >/=1 40mm HG Completed 03/21/2023 3008F Body Mass Index (BMI), Docum ented (pv) Completed Medical Devices Description No Information Available Encounters Type Date Location Provider Dx Diagnosis Office Visit 06/20/2023 11:20a [facility] Chrissy Levy MD I10 Essential (primary) hypertension I25.10 Athscl heart disease of [place] coronary artery w/o ang pctrs I48.21 Permanent atrial fib rillation I27.20 Pulmonary hypertensi on, unspecified I34.0 Nonrheumatic mitral (valve) insufficiency I77.810 Thoracic aortic ecta jazmin E78.5 Hyperlipidemia, unsp ecified Z95.2 Presence of prosthet ic heart valve Z79.01 FPC (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 E66.01 Morbid (severe) obes ity due to excess calories Z68.42 Body mass index [BMI ] 45.0-49.9, adult Office Visit 03/21/2023 11:20a [facility] Yane Levy MD I25.10 Athscl heart disease of [place] coronary artery w/o ang pctrs I48.21 Permanent atrial fib rillation I10 Essential (primary) hypertension I27.20 Pulmonary hypertensi on, unspecified I34.0 Nonrheumatic mitral (valve) insufficiency I77.810 Thoracic aortic ecta jazmin E78.5 Hyperlipidemia, unsp ecified Z95.2 Presence of prosthet ic heart valve Z79.01 lobsterman (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 E66.01 Morbid (severe) obes ity due to excess calories Z68.42 Body mass index [BMI ] 45.0-49.9, adult Assessments Date Code Description Provider 06/20/2023 I10 Essential (primary) hyperten christina Levy MD 06/20/2023 I25.10 Atherosclerotic heart disease of [place] coronary artery without angina pectoris Chrissy Levy MD 06/20/2023 I48.21 Permanent atrial fibrillatio n Chrissy Levy MD 06/20/2023 I27.20 Pulmonary hypertension, unsp ecified Chrissy Levy MD 06/20/2023 I34.0 Nonrheumatic mitral (valve) insufficiency Chrissy Levy MD 06/20/2023 I77.810 Thoracic aortic ectasia Sahil Levy MD 06/20/2023 E78.5 Hyperlipidemia, unspecified Chrissy Levy MD 06/20/2023 Z95.2 Presence of prosthetic heart valve Chrissy Levy MD 06/20/2023 Z79.01 lobsterman (current) use of a nticoagulants Chrissy Levy MD 06/20/2023 E66.01 Morbid (severe) obesity due to excess calories Chrissy Levy MD 06/20/2023 Z68.42 Body mass index [BMI] 45.0-4 9.9, adult Chrissy Levy MD 04/03/2023 I10 Essential (primary) hyperten christina Cardio Nurse Schedule 03/21/2023 I25.10 Atherosclerotic heart disease of [place] coronary artery without angina pectoris Chrissy Levy MD 03/21/2023 I48.21 Permanent atrial fibrillatio n Chrissy Levy MD 03/21/2023 I10 Essential (primary) hyperten christina Chrissy Levy MD 03/21/2023 I27.20 Pulmonary hypertension, unsp ecified Chrissy Levy MD 03/21/2023 I34.0 Nonrheumatic mitral (valve) insufficiency Chrissy Levy MD 03/21/2023 I77.810 Thoracic aortic ectasia Sahil Levy MD 03/21/2023 E78.5 Hyperlipidemia, unspecified Chrissy Levy MD 03/21/2023 Z95.2 Presence of prosthetic heart valve Chrissy Levy MD 03/21/2023 Z79.01 lobsterman (current) use of a nticoagulants Chrissy Levy MD 03/21/2023 E66.01 Morbid (severe) obesity due to excess calories Chrissy Levy MD 03/21/2023 Z68.42 Body mass index [BMI] 45.0-4 9.9, adult Chrissy Levy MD Plan of Treatment Future Appointment(s):* 09/22/2023 11:00 am - Chrissy Levy MD at [facility] Functional Status Description No Information Available Mental Status Description No Information Available Referrals Refer to Dr Reason for Referral Status Appt Sherlyn Grande CRNP follow up of sleep apnea first app[facility] can be in [place] [facility] [address] [facility] [address]
--- OUTSIDE RECORDS SUMMARY | 2023-07-07 13:10 | External Medical Summary | Continuity of Care Document ---
Author Name Unknown Organization [facility] Address [address] [place] [address] [place] [phone] Care Team Providers Care Blasting Contract Man Name Role Phone Veronica Tucker Primary Care Physician [phone] Encounter [facility] [id number] Date(s): 06/02/23 - 06/02/23 [facility] [address] [facility] [id number], [place] [address]- [phone] Encounter Diagnosis Renal cell cancer(Discharge Diagnosis) - 06/02/23 Aortic stenosis(Discharge Diagnosis) - 06/02/23 CAD (coronary artery disease)(Discharge Diagnosis) - 06/02/23 Discharge Disposition: Home or Self Care Attending Physician: MD Jeff, Lizzie Savage Referring Physician: MD Tucker Sharon Eunice Allergies, Adverse Reactions, Alerts No Known Allergies Immunizations Given and Recorded Vaccine Date Status Refusal Reason SARS-CoV-2 mRNA-1273 (6y+ bivalent) 1 01/01/22 Rec orded SARS-CoV-2 (COVID-19) mRNA-1273 vaccine 2 01/29/21 Recorded SARS-CoV-2 (COVID-19) mRNA-1273 vaccine 3 06/15/20 Recorded SARS-CoV-2 (COVID-19) mRNA-1273 vaccine 4 05/12/20 Recorded pneumococcal 23-valent vaccine 5 04/26/17 Recorded 1Result Comment: 2023-02-02: Historical information-source unspecified 2Result Comment: 2023-02-02: Historical information-source unspecified 3Result Comment: 2023-02-02: Historical information-source unspecified 4Result Comment: 2023-02-02: Historical information-source unspecified 5Result Comment: 2023-02-02: Historical information-source unspecified Medications amoxicillin 500 mg oral capsule Start: 03/12/23 9:00:00 EST, 4 cap, PO, As indicated, Disp# 12 cap, Refills: 3, one hour before dental and other procedures as directed Start Date: 03/12/23 Status: Ordered betamethasone dipropionate, augmented 0.05% topical cream Start: 09/03/21 14:50:00 EDT, See Instructions, Disp# 50 g, Refills: 2, APPLY TOPICALLY 2 TIMES A DAY TO NECK, Pharmacy: [facility] Start Date: 09/03/21 Status: Ordered Crestor 20 mg oral tablet Start: 11/05/22 8:08:00 EDT, 1 tab, PO, Daily Start Date: 11/05/22 Status: Ordered Eliquis 5 mg oral tablet Start: 11/01/16 8:22:00 EDT, 1 tab, PO, bid Start Date: 11/01/16 Status: Ordered furosemide Start: 03/12/23 9:01:00 EST, 40 mg =, PO, Take 1 tab 4 times a week alternating with 80 mg Start Date: 03/12/23 Status: Ordered furosemide 40 mg oral tablet Start: 10/31/17 8:37:00 EDT, See Instructions, 1 tab po 4 x weekly Start Date: 10/31/17 Status: Ordered furosemide 80 mg oral tablet Start: 10/31/17 8:37:00 EDT, See Instructions, 1 tab 3 x weekly Start Date: 10/31/17 Status: Ordered glucosamine Start: 03/12/23 9:00:00 EST, See Instructions, 2000mg daily Start Date: 03/12/23 Status: Ordered Jardiance Start: 06/02/23 13:24:00 EDT Start Date: 06/02/23 Status: Ordered losartan Start: 11/05/22 8:07:00 EDT, 100 mg =, Daily Start Date: 11/05/22 Status: Ordered metoprolol tartrate Start: 02/11/20 9:25:00 EST, 25 mg =, PO, bid Start Date: 02/11/20 Status: Ordered multivitamin 1 cap, PO, Daily, Refills: 0, Start: 06/06/09 16:06:21 Start Date: 06/06/09 Status: Ordered Synthroid Start: 06/06/09 16:05:43 EDT, 175 mcg =, PO, Daily, Refills: 0, current medication from another provider Start Date: 06/06/09 Status: Ordered turmeric 500 mg oral capsule Start: 11/26/22 10:55:00 EDT, 1 cap, PO, bid Start Date: 11/26/22 Status: Ordered Vitamin C 1000 mg oral tablet Start: 03/12/23 9:03:00 EST, 1 tab, PO, Daily Start Date: 03/12/23 Status: Ordered Vitamin D3 2000 intl units oral capsule Start: 10/31/17 8:39:00 EDT, 1 cap, PO, Daily Start Date: 10/31/17 Status: Ordered Mental Status 06/02/23 Barriers to Learning one year None evide nt Mandatory Health Literacy Documentation Yes Communication Barrier Present No Health Literacy Communication Barriers N ever Primary Language [place] Problem List Condition Confirmation Course Effective Dates Status H ealth Status Informant Renal cell cancer Confirmed Active Hematuria Confirmed Active High cholesterol Confirmed Active Hypertension Confirmed Active Hypothyroidism Confirmed Active Mediastinal adenopathy Confirmed Active Obesity Confirmed Active Renal mass, right Confirmed Active Diagnosis Diagnosis Type Effective Dates Health Status Cl inical Service Informant Renal cell cancer Discharge Diagnosis 06/02/23 Non-Specified Aortic stenosis Discharge Diagnosis 06/02/23 Non-Specified CAD (coronary artery disease) Discharge Diagnosis 06/02/23 Non-Specified Procedures Procedure Date Related Diagnosis Body Site Status Cardiac catheterization 10/2022 C ompleted Shave biopsy 1 03/06/22 Completed Excision 2 08/10/20 Completed Shave biopsy and cauterization of skin 07/26/20 Completed Laparscopic radical nephrectomy, right 06/13/09 Completed Hand surgery, right 1974 Compl eted 1right shoulder 2malignant melanoma left side of neck Vital Signs Most recent to oldest [Reference Range]: 1 Patient Weight 167.3 kg (06/02/23 1:25 PM) Temperature [36.5-37.9 DegC] 36.8 DegC (06/02/23 1:25 PM) Heart Rate 97 bpm (06/02/23 1:25 PM) Respiratory Rate 16 br/min (06/02/23 1:25 PM) Blood Pressure 137/84mmHg (06/02/23 1:25 PM) Cuff Pulse Pressure 53 mmHg (06/02/23 1:25 PM) BP Location # 1 Right Arm (06/02/23 1:25 PM) Social History Social History Type Response Smoking Status Never smoked cigaret cliff Sex Male Patient Care team information Care Team Personnel Name: MD Garrett, Veronica Pradhan Position: Referring Member Role: Primary Care Provider Address: Address: [address], [place] [address] Name: MD Harjeet, Richie Dan Position: Physician - Urology Member Role: Lifetime Relationship Address: Address: [address] [place] [address] [place] [id number] Care Team Related Persons Name: CIERRA WANG Address: [place] Address: home [id number] [place] [address] DENN[place] LEROY [phone] Name: CIERRA WANG Address: home [address] [place] K[place] [id number]
[2023-07-07] MEDS: LANTUS PER UNIT CHARGE SQ ONE ×2 (13:17→22:25)
[2023-07-07] MEDS: INSULIN ASPART PER UNIT CHARGE SC SCH (13:18)
[2023-07-07] MEDS: LACTATED RINGER'S 1,000 ML IV SCH (14:08)
--- NOTE | 2023-07-07 16:43 | Electrocardiogram Report ---
Test Reason : Blood Pressure : / mmHG Vent. Rate : 097 BPM Atrial Rate : 000 BPM P-R Int : 000 ms QRS Dur : 102 ms QT Int : 352 ms P-R-T Axes : 000 -20 035 degrees QTc Int : 447 ms Atrial fibrillation with premature ventricular or aberrantly conducted complexes Incomplete right bundle branch block Abnormal ECG No previous ECGs available Confirmed by Lc Mitchell ([id number]) on 07/07/2023 4:43:44 PM Referred By: Confirmed By:Irvin Mitchell
[2023-07-07] MEDS ORDERED: methylPREDNISolone 125 MG/2 ML VIAL IV SCH (17:00)
[2023-07-07] MEDS: methylPREDNISolone 75 MG in SYRINGE 0 ML IV SCH (18:22)
[2023-07-07 18:53] LABS: Allen Test Pos (Pos)
[2023-07-07 18:54] LABS: Base Excess ABG -12.8 mEq/L (-9-1.8); HCO3 ABG 12 mmol/L (19-24); Oxygen Saturation ABG 98.7 % (90-95); PCO2 ABG 25 mmHg (35-46); PO2 ABG 104 mmHg (80-95); pH ABG 7.29 (7.35-7.45)
[2023-07-07 19:28] LABS: BUN Creatinine Ratio 17.3 (10-20); Calcium 9.9 mg/dl (8.6-10.3); Creatinine Clr Calc Pharmacy 17.8 ml/min; Est GFR (African American) 9.9 ml/min; Est GFR (Non-African American) 8.5 ml/min; Magnesium 2.4 mg/dl (1.7-2.4); Potassium 5.5 mmol/L (3.5-5.1)
[2023-07-07] MEDS ORDERED: STAT IV/IM STA (19:53)
[2023-07-07] MEDS: INSULIN HUMAN REGULAR PER UNIT 10 UNITS in SYRINGE 9.9 ML IV STA (20:51)
[2023-07-07] MEDS: DEXTROSE 50% 50 ML SYRINGE IV STA (20:54)
[2023-07-07] MEDS: CALCIUM GLUCONATE 1,000 MG/60 ML BAG IV STA (20:56)
[2023-07-07] MEDS ORDERED: LANTUS PER UNIT CHARGE SQ ONE ×2 (21:00)
[2023-07-07] MEDS: SODIUM ZIRCONIUM CYCLOSILICATE 10 GM PACKET PO STA (21:04)
[2023-07-07] MEDS: SODIUM BICARBONATE 8.4% 150 MEQ in WATER, STERILE 1,000 ML IV SCH (21:31)
[2023-07-07 22:58] LABS: Appearance Urine Clear (Clear); Bacteria Urine Automated None Seen (None Seen); Bilirubin Urine Negative (Negative); Blood Urine Trace (Negative); Cast Urine Automated 0-2 /lpf (0-2); Color Urine Yellow; Epithelial Cell Urine Auto 0-2 /hpf (0-2); Glucose Urine UA 3+ (Negative); Ketones Urine Negative (Negative); Leukocyte Esterase Urine Negative (Negative); Nitrite Urine Negative (Negative); Protein Urine 2+ (Negative); RBC Urine Automated 0-2 /hpf (0-2); Specific Gravity Urine 1.016 (1.000-1.030); Urobilinogen Urine Negative (Negative); WBC Urine Automated 0-5 /hpf (0-5)
[2023-07-07] MEDS: METOPROLOL TARTRATE 25 MG TAB PO SCH (23:05)
[2023-07-07] MEDS: APIXABAN 2.5 MG TAB PO SCH (23:05)
[2023-07-07 23:35] LABS: BUN Creatinine Ratio 17.7 (10-20); Calcium 10.3 mg/dl (8.6-10.3); Creatinine Clr Calc Pharmacy 18.4 ml/min; Est GFR (African American) 9.6 ml/min; Est GFR (Non-African American) 8.3 ml/min
[2023-07-08] MEDS: INSULIN ASPART PER UNIT CHARGE SC SCH (00:22)
[2023-07-08] MEDS: LEVOTHYROXINE SODIUM 200 MCG TABLET PO SCH (06:12)
[2023-07-08 07:03] LABS: Basophils # (auto) 0.01 K/uL (0.00-0.20); Basophils % (auto) 0.2 %; Hematocrit (blood only) 32.8 % (42.0-52.0); Hemoglobin 11.3 g/dl (14.0-18.0); Immature Granulocytes # (auto) 0.05 K/uL (0.01-0.20); Lymphocytes # (auto) 0.73 K/uL (1.20-3.40); Lymphocytes % (auto) 14.4 %; Mean Corpuscular Hemoglobin 27.6 pg (25.0-34.0); Mean Corpuscular Hgb Conc 34.5 g/dL (32.0-36.0); Mean Corpuscular Volume 80.2 fL (80.0-100.0); Mean Platelet Volume 10.9 fL (9.4-12.4); Monocytes # (auto) 0.23 K/uL (0.11-0.59); Monocytes % (auto) 4.5 %; Neutrophils # (auto) 4.04 K/uL (1.40-6.50); Neutrophils % (auto) 79.9 %; Platelet Count 136 K/uL (130-400); RDW Coefficient of Variation 18.3 % (11.5-14.5); RDW Standard Deviation 52.7 fL (36.4-46.3); Red Blood Count 4.09 M/uL (4.70-6.10); White Blood Count 5.06 K/ul (4.8-10.8)
[2023-07-08 07:28] LABS: INR 1.3 (0.9-1.1); Prothrombin Time 13.7 Seconds (9.0-12.0)
[2023-07-08 07:30] LABS: Albumin Globulin Ratio 0.8 (0.9-2); Albumin Level 2.6 gm/dl (3.4-5.0); BUN Creatinine Ratio 17.9 (10-20); Calcium 9.7 mg/dl (8.6-10.3); Creatinine Clr Calc Pharmacy 19.3 ml/min; Est GFR (African American) 10.2 ml/min; Est GFR (Non-African American) 8.8 ml/min; Globulin 3.1 gm/dl (2.5-4.0); Magnesium 2.3 mg/dl (1.7-2.4); Potassium 5.1 mmol/L (3.5-5.1); Total Protein 5.7 gm/dl (6.0-8.3)
[2023-07-08] MEDS: LANTUS PER UNIT CHARGE SC SCH ×2 (08:17→20:29)
[2023-07-08] MEDS: SODIUM ZIRCONIUM CYCLOSILICATE 10 GM PACKET PO ONE (11:05)
--- NOTE | 2023-07-08 12:43 | Hematology/Oncology Prog Note ---
Date of Service July 08, 2023 Assessment & Plan (1) Renal cell carcinoma: (2) CKD (chronic kidney disease) stage 4, GFR 15-29 ml/min: (3) Immunotherapy: Plan LFTs improving with IV steroids. Continue with current dose of methylprednisolone. Can switch to prednisone 1 mg/kg/day when ALT/AST are below 5 times ULN Admission and Anticipated Discharge Date Admission Date: July 07, 2023 Subjective Labs show improving LFTs and renal function. Remains on methylprednisolone 1 mg/kg/day Results & Data Vital Signs (Past 12 Hours) Vital Signs Temp Pulse Resp BP Pulse Ox O2 Del Method O2 Del Method 07/08/23 11:28 36.3 C L 87 18 114/77 94 Room Air 07/08/23 11:00 Room Air 07/08/23 07:13 36.5 C 94 H 18 134/81 97 Room Air 07/08/23 03:55 36.5 C 86 18 101/66 94 Room Air
--- NOTE | 2023-07-08 13:17 | Nephrology Consultation ---
Date of Consultation July 08, 2023 Assessment & Plan (1) Acute kidney injury superimposed on CKD: Non-oliguric. No emergent indication for dialysis. Electrolytes acceptable. Volume status relatively euvolemic. Denies significant uremic symptoms. Potential future indications for RESPIRATORY CARE TECHNICIAN were reviewed today. Lokelma 10 gm ordered. Maintain renal diet. Renal US requested. Urine microscopy acellular. Hold furosemide, losartan, and empagliflozin. Goal is to maintain an even fluid balance. Document strict I/O's. Repeat metabolic profile tomorrow. (2) CKD (chronic kidney disease) stage 4, GFR 15-29 ml/min: CKD IV-V A3. Prognosis for renal recovery is guarded. Single kidney with multiple episodes of MARILEE. (3) Immunotherapy: Methylprednisolone x 3 days. Then, convert to prednisone. Immunotherapy held. (4) Heart failure with preserved ejection fraction: Volume status acceptable. Low sodium diet. Hold diuretics. Hold losartan and empagliflozin. Document I/O's. Document daily weights. (5) Renal cell carcinoma: Oncology following. (6) Acidosis: IV NaHCO3 stopped. Recheck labs tomorrow AM. History of Present Illness Reason for Consultation: MARILEE on CKD Requesting Physician: Lakia Castellanos MD Attending Physician: Lakia Castellanos MD History of Present Illness Mr. Chase Guadalupe ("Paige") is a 67-year-old male with advanced chronic kidney disease (CKD IV-V A3, baseline creatinine 3.5-4.0 mg/dL, ACR 500 mcg/mg) and renal cell carcinoma. I known Paige well from the [facility] nephrology clinic in [place]. He started ipilimumab and nivolumab in April. Cycle 3 completed on June 15. Outpatient laboratory studies recently completed by his PCP notable for elevated TSH with associated symptoms of hypothyroidism including fatigue and decreased activity tolerance since starting immunotherapy. Levothyroxine dose was increased. Blood work obtained in the oncology clinic demonstrated abnormalities including transaminitis and MARILEE with hyperkalemia. Paige was admitted for additional evaluation and management. Blood work yesterday notable for a creatinine of 6.14 mg/dL, sodium 130 mmol/L, potassium 5.5 mmol/L, and HCO3 12 mEq/L. He received medical management for hyperkalemia, including IVF and Lokelma. 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 LFTs are improving. Creatinine fairly stable at 5.9 mg/dL this AM. Electrolytes acceptable. Paige is non-oliguric. He was seen and evaluated with his at the bedside. Paige has a complex medical history which includes hypertension, hypercholesterolemia, morbid obesity, paroxysmal atrial fibrillation, hypothyroidism, SARAH, chronic kidney disease class IV A3, and a history of right nephrectomy for renal cell carcinoma (performed by Dr. Cosby at [facility] in 2002). He has a history of HFpEF and severe --> TAVR. Paige developed symptomatic paroxysmal atrial fibrillation associated with episodes of apparent flash pulmonary edema in April 2017. Rhythm control with Multaq and MOHSEN cardioversion was performed by Dr. Levy. Evaluation also included cardiac catheterization in April 2017. LV EF is preserved with normal LV size reported. Noted mitral annular calcification as well as regurgitation. Pulmonary pressures were reported to be slightly elevated. Paige has had symptomatic atrial fibrillation. He is tolerating treatment for SARAH with nocturnal CPAP. TAVR completed at [facility] in January 2023. Pseudoaneurysm with hematoma in the inguinal area noted following the procedure. Imaging demonstrated 2 meningiomas which are being monitored by neurosurgery at [facility]. A left upper pole renal mass and adenopathy were also identified. Pathology consistent with renal cell carcinoma. He is following with Dr. Lizzie Aguilar in the oncology clinic. Treatment with Iplilmumab and Nivolumab coordinated through the [facility] in [place] by Dr. Grijalva. Allergies Allergy/AdvReac Type Severity Reaction Status Date / Time No Known Allergies Allergy Verified 05/20/23 14:12 Home Medications Medication Instructions Recorded Confirmed Type apixaban 5 mg tablet 5 mg PO BID #60 tabs 11/11/18 07/07/23 History furosemide 40 mg tablet 40 mg PO .COMPLEX 11/11/18 07/07/23 History metoprolol tartrate 25 mg tablet 25 mg PO BID #180 tabs 11/11/18 07/07/23 History multivitamin 1 tab PO DAILY 11/11/18 07/07/23 History tadalafil 20 mg tablet 20 mg PO .COMPLEX PRN Other 11/11/18 07/07/23 History glucosamine sulfate 1,000 mg tablet 2,000 mg PO BID 08/30/20 07/07/23 History cholecalciferol (vitamin D3) 50 2,000 unit PO DAILY #30 tabs 10/15/22 07/07/23 History mcg (2,000 unit) tablet levothyroxine 150 mcg tablet 200 mcg PO DAILY #30 tabs 10/15/22 07/07/23 History rosuvastatin 20 mg tablet (Crestor) 10 mg PO DAILY 12/17/22 07/07/23 History losartan 100 mg tablet 100 mg PO DAILY #90 tabs 12/23/22 07/07/23 Rx empagliflozin 10 mg tablet 10 mg PO DAILY #90 tabs 04/08/23 07/07/23 Rx amoxicillin 500 mg capsule 2,000 mg PO UD PRN dental tripp. 07/07/23 07/07/23 History betamethasone, augmented 0.05 % 1 applic topical BID PRN Other 07/07/23 07/07/23 History topical cream Patient History Medical History Hypercholesterolemia Hypertension Hypothyroidism Surgical History S/p nephrectomy Family History Mother Cancer mother - bowel Social History Smoking Status: Never smoker Hx Alcohol Use: No Hx Substance Use: No Preferred Language: American Communication Ability: Effective Punch Press Operator Required: No Beliefs That Will Affect Care: None Current Living Situation: Spouse current occupational status: employed Feels Safe at Home: Yes Assistive Devices: None Review of Systems Review of Systems: All systems reviewed & are unremarkable except as noted in HPI & below Physical Exam Constitutional: well developed and + morbidly obese; no acute distress Eyes: no scleral abnormality and no corneal abnormality ENMT: Mouth: no oral mucosal abnormality and oral mucous membranes not dry Neck: normal visual inspection and trachea midline Respiratory: normal respiratory effort Auscultation: lungs clear to auscultation bilaterally Cardiovascular: Rate/Rhythm: regular rate Heart Sounds: normal S1 and normal S2 Extremities: + edema (R>L) and + varicosities Musculoskeletal: Extremities: no cyanosis and no clubbing Skin: normal turgor; no lesions Neurologic: Motor/Sensory: no tremor and no asterixis Psychiatric: Orientation: alert and oriented x 3 Results & Data Vital Signs (Past 12 Hours) Vital Signs Temp Pulse Resp BP Pulse Ox O2 Del Method O2 Del Method 07/08/23 11:28 36.3 C L 87 18 114/77 94 Room Air 07/08/23 11:00 Room Air 07/08/23 07:13 36.5 C 94 H 18 134/81 97 Room Air 07/08/23 03:55 36.5 C 86 18 101/66 94 Room Air Laboratory Results Laboratory Results - last 24 hr 07/07/23 07/07/23 07/07/23 17:24 18:40 22:14 WBC RBC Hgb Hct MCV MCH MCHC RDW Std Deviation RDW Coeff of Nick Plt Count MPV Immature Gran % (Auto) Neut % (Auto) Lymph % (Auto) Alcorn % (Auto) Eos % (Auto) Baso % (Auto) Neut # (Auto) Lymph # (Auto) Alcorn # (Auto) Eos # (Auto) Baso # (Auto) Immature Gran # (Auto) PT INR ABG pH 7.29 L ABG pCO2 25 L ABG pO2 104 H ABG HCO3 12 L ABG O2 Saturation 98.7 H ABG Base Excess -12.8 L Chandler Test Pos Oxygen Given ROOM AIR Sodium 130 L Potassium 5.5 H Chloride 106 Carbon Dioxide 12 L Anion Gap 12 H BUN 106 H Creatinine 6.14 H* Est Cr Clr Drug Dosing 17.8 Est GFR ( Amer) 9.9 Est GFR (Non-Af Amer) 8.5 BUN/Creatinine Ratio 17.3 Glucose 252 H POC Glucose 174 H 209 H Calcium 9.9 Magnesium 2.4 Total Bilirubin AST ALT Alkaline Phosphatase Total Protein Albumin Globulin Albumin/Globulin Ratio Urine Color Urine Appearance Urine pH Ur Specific Mark Urine Protein Urine Glucose (UA) Urine Ketones Urine Blood Urine Nitrite Urine Bilirubin Urine Urobilinogen Ur Leukocyte Esterase Urine WBC (Auto) Urine RBC (Auto) U Hyaline Cast (Auto) U Epithel Cells (Auto) Urine Bacteria (Auto) 07/07/23 07/07/23 07/08/23 22:33 22:55 00:11 WBC RBC Hgb Hct MCV MCH MCHC RDW Std Deviation RDW Coeff of Nick Plt Count MPV Immature Gran % (Auto) Neut % (Auto) Lymph % (Auto) Alcorn % (Auto) Eos % (Auto) Baso % (Auto) Neut # (Auto) Lymph # (Auto) Alcorn # (Auto) Eos # (Auto) Baso # (Auto) Immature Gran # (Auto) PT INR ABG pH ABG pCO2 ABG pO2 ABG HCO3 ABG O2 Saturation ABG Base Excess Chandler Test Oxygen Given Sodium 131 L Potassium 5.0 Chloride 106 Carbon Dioxide 14 L Anion Gap 11 BUN 111 H Creatinine 6.27 H* Est Cr Clr Drug Dosing 18.4 Est GFR ( Amer) 9.6 Est GFR (Non-Af Amer) 8.3 BUN/Creatinine Ratio 17.7 Glucose 211 H POC Glucose 207 H Calcium 10.3 Magnesium Total Bilirubin AST ALT Alkaline Phosphatase Total Protein Albumin Globulin Albumin/Globulin Ratio Urine Color Yellow Urine Appearance Clear Urine pH 5.0 Ur Specific Mark 1.016 Urine Protein 2+ H Urine Glucose (UA) 3+ H Urine Ketones Negative Urine Blood Trace H Urine Nitrite Negative Urine Bilirubin Negative Urine Urobilinogen Negative Ur Leukocyte Esterase Negative Urine WBC (Auto) 0-5 Urine RBC (Auto) 0-2 U Hyaline Cast (Auto) 0-2 U Epithel Cells (Auto) 0-2 Urine Bacteria (Auto) None Seen 07/08/23 07/08/23 07/08/23 03:59 06:39 07:07 WBC 5.06 RBC 4.09 L Hgb 11.3 L Hct 32.8 L MCV 80.2 MCH 27.6 MCHC 34.5 RDW Std Deviation 52.7 H RDW Coeff of Nick 18.3 H Plt Count 136 MPV 10.9 Immature Gran % (Auto) 1.0 Neut % (Auto) 79.9 Lymph % (Auto) 14.4 Alcorn % (Auto) 4.5 Eos % (Auto) 0.0 Baso % (Auto) 0.2 Neut # (Auto) 4.04 Lymph # (Auto) 0.73 L Alcorn # (Auto) 0.23 Eos # (Auto) 0.00 Baso # (Auto) 0.01 Immature Gran # (Auto) 0.05 PT 13.7 H INR 1.3 H ABG pH ABG pCO2 ABG pO2 ABG HCO3 ABG O2 Saturation ABG Base Excess Chandler Test Oxygen Given Sodium 132 L Potassium 5.1 Chloride 106 Carbon Dioxide 16 L Anion Gap 10 BUN 107 H Creatinine 5.97 H* D Est Cr Clr Drug Dosing 19.3 Est GFR ( Amer) 10.2 Est GFR (Non-Af Amer) 8.8 BUN/Creatinine Ratio 17.9 Glucose 181 H POC Glucose 172 H 178 H Calcium 9.7 Magnesium 2.3 Total Bilirubin 1.0 AST 265 H ALT 372 H Alkaline Phosphatase 273 H Total Protein 5.7 L Albumin 2.6 L Globulin 3.1 Albumin/Globulin Ratio 0.8 L Urine Color Urine Appearance Urine pH Ur Specific Mark Urine Protein Urine Glucose (UA) Urine Ketones Urine Blood Urine Nitrite Urine Bilirubin Urine Urobilinogen Ur Leukocyte Esterase Urine WBC (Auto) Urine RBC (Auto) U Hyaline Cast (Auto) U Epithel Cells (Auto) Urine Bacteria (Auto) 07/08/23 11:19 WBC RBC Hgb Hct MCV MCH MCHC RDW Std Deviation RDW Coeff of Nick Plt Count MPV Immature Gran % (Auto) Neut % (Auto) Lymph % (Auto) Alcorn % (Auto) Eos % (Auto) Baso % (Auto) Neut # (Auto) Lymph # (Auto) Alcorn # (Auto) Eos # (Auto) Baso # (Auto) Immature Gran # (Auto) PT INR ABG pH ABG pCO2 ABG pO2 ABG HCO3 ABG O2 Saturation ABG Base Excess Chandler Test Oxygen Given Sodium Potassium Chloride Carbon Dioxide Anion Gap BUN Creatinine Est Cr Clr Drug Dosing Est GFR ( Amer) Est GFR (Non-Af Amer) BUN/Creatinine Ratio Glucose POC Glucose 172 H Calcium Magnesium Total Bilirubin AST ALT Alkaline Phosphatase Total Protein Albumin Globulin Albumin/Globulin Ratio Urine Color Urine Appearance Urine pH Ur Specific Mark Urine Protein Urine Glucose (UA) Urine Ketones Urine Blood Urine Nitrite Urine Bilirubin Urine Urobilinogen Ur Leukocyte Esterase Urine WBC (Auto) Urine RBC (Auto) U Hyaline Cast (Auto) U Epithel Cells (Auto) Urine Bacteria (Auto) PG Care Time/CCT Total # of Minutes Spent Total Time Spent with Patient: Total time spent is greater than 50% in coordination of care (as documented) at patient's floor/unit and/or counseling patient: Coding Level of Care Code 54962 IN/OBS CONSULT LVL 5,80M Diagnoses Acute kidney injury superimposed on CKD N17.9; N18.9 CKD (chronic kidney disease) stage 4, GFR 15-29 ml/min N18.4 Immunotherapy Z29.89 Heart failure with preserved ejection fraction I50.30 Renal cell carcinoma C64.9 Acidosis E87.20
--- NOTE | 2023-07-08 14:54 | Ultrasound Report ---
RENAL ULTRASOUND HISTORY: History of right nephrectomy. MARILEE/CKD COMPARISON: Abdominal ultrasound 07/07/2023. FINDINGS: Right kidney: Surgically absent. No masses or fluid collections within the nephrectomy bed. Left kidney: 14.6 cm. A few cysts with the largest in the upper pole measuring 4.5 cm. No hydronephro sis. Normal corticomedullary differentiation and cortical thickness. Bladder: No bladder wall thickening. The left ureteral jet was identified. IMPRESSION: 1. Prior right nephrectomy. 2. Left renal cysts. 3. No left-sided hydronephrosis. ACT 112: Negative or not required by law. Electronically signed by: David Moffett M.D. 07/08/2023 2:52 PM
--- NOTE | 2023-07-08 19:06 | Hospitalist Progress Note ---
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 Grijalva's recs transition to oral prednisone 1 mg/kg/day when ALT/AST are below 5 times ULN (2) Acute kidney injury superimposed on CKD: Plan: MARIELE on CKD-4, non-oliguric -Cr noted to be 6.11 with BUN of 105 on outpatient CMP prior to ED arrival -Baseline Cr is ~3.5, per last Nephrology clinic note on 05/20/23 -may be prerenal injury, there is a possibility of immunotherapy-induced MARILEE -appreciate nephrology consultation reviewed recs by Dr. Timmons -renal US 07/07 reviewed - R nephrectomy, L kidney with cysts, no hydronephrosis -lokelma repeat dose this AM -only slight improvement in Cr overnight -AM BMP (3) High anion gap metabolic acidosis: Plan: Related to renal dysfunction Nabicarb drip given at admission -monitor BMP (4) Hyperglycemia: Plan: -Patient's last Hgb A1c on 06/26/23 was 6.3 -Was started on Jardiance for his CHF and CKD -Hold Jardiance for now -Monitor BSG q6h until stable, goal is 110-160 on IV steroids -Continue glargine and premeal/correctional short acting -Pharmacy glycemic consult placed for increased risk of ongoing hyperglycemic with IV steroid treatment -BG at short term goal today <180 (5) Generalized weakness: Plan: related to dehydration, MARILEE, elevated LFT's, and current renal cell carcinoma on immunotherapy -improved (6) Hypothyroidism: Plan: -Continue levothyroxine. Dose was just increased to 200 mcg as outpatient several days ago -follow up in primary care for TSH monitoring (7) Renal cell carcinoma: Plan: -Oncology consulted -Last dose of immunotherapy was on 06/16/23, was supposed to have 4th cycle 07/06 -Continue to follow with Oncology on discharge (8) Hypertension: Plan: -Stable -Holding lasix losartan and Jardiance with MARILEE and dehydration -continue metoprolol for now (9) Heart failure with preserved ejection fraction: Plan: -Hold lasix and Jardiance -Continue metoprolol -monitor volume status (10) SARAH (obstructive sleep apnea): Plan: -HS CPAP ordered Plan Chronic atrial fibrillation -continue metoprolol and apixaban DVT ppx - DOAC Admission and Anticipated Discharge Date Admission Date: July 07, 2023 Subjective Feels much better today. Is urinating a good amount. No RUQ pain. Physical Exam 2 Physical Exam: VS reviewed, afebrile, BP normal, on room air 96% Sitting in chair appears well Lungs CTAB without RRG Heart irreg irreg without mrg Abd s/nt/nd +BT LE wwp with some edema, no cyanosis Skin w/d without rashes AOx4 face symmetric normal speech moves 4 ext symmetrically Results & Data Results & Data Vital Signs (Past 12 Hours) Vital Signs Temp Pulse Resp BP Pulse Ox O2 Del Method O2 Del Method 07/08/23 15:20 36.3 C L 90 18 105/70 96 Room Air 07/08/23 11:28 36.3 C L 87 18 114/77 94 Room Air 07/08/23 11:00 Room Air 07/08/23 07:13 36.5 C 94 H 18 134/81 97 Room Air Laboratory Results 07/08/23 06:39 07/08/23 06:39 PG Care Time/CCT Total # of Minutes Spent Total Time Spent with Patient: Total time spent is greater than 50% in coordination of care (as documented) at patient's floor/unit and/or counseling patient: Coding Level of Care Code 87126 SUB INP/OBS CARE 3/50MIN Diagnoses Elevated LFTs R79.89 Acute kidney injury superimposed on CKD N17.9; N18.9 High anion gap metabolic acidosis E87.29 Hyperglycemia R73.9 Generalized weakness R53.1 Hypothyroidism E03.9 Renal cell carcinoma C64.9 Hypertension I10 Heart failure with preserved ejection fraction I50.30 SARAH (obstructive sleep apnea) G47.33
[2023-07-09 07:33] LABS: Basophils # (auto) 0.01 K/uL (0.00-0.20); Basophils % (auto) 0.1 %; Hematocrit (blood only) 35.9 % (42.0-52.0); Hemoglobin 11.9 g/dl (14.0-18.0); Immature Granulocytes # (auto) 0.11 K/uL (0.01-0.20); Lymphocytes # (auto) 0.91 K/uL (1.20-3.40); Lymphocytes % (auto) 8.1 %; Mean Corpuscular Hemoglobin 27.3 pg (25.0-34.0); Mean Corpuscular Hgb Conc 33.1 g/dL (32.0-36.0); Mean Corpuscular Volume 82.3 fL (80.0-100.0); Mean Platelet Volume 10.9 fL (9.4-12.4); Monocytes # (auto) 0.56 K/uL (0.11-0.59); Neutrophils # (auto) 9.68 K/uL (1.40-6.50); Neutrophils % (auto) 85.8 %; Platelet Count 173 K/uL (130-400); RDW Coefficient of Variation 18.6 % (11.5-14.5); RDW Standard Deviation 55.1 fL (36.4-46.3); Red Blood Count 4.36 M/uL (4.70-6.10); White Blood Count 11.27 K/ul (4.8-10.8)
[2023-07-09 08:02] LABS: INR 1.3 (0.9-1.1); Prothrombin Time 13.7 Seconds (9.0-12.0)
[2023-07-09] MEDS: LANTUS PER UNIT CHARGE SC SCH (08:16)
[2023-07-09 08:21] LABS: Albumin Globulin Ratio 0.8 (0.9-2); Albumin Level 2.7 gm/dl (3.4-5.0); BUN Creatinine Ratio 20.2 (10-20); Calcium 9.5 mg/dl (8.6-10.3); Creatinine Clr Calc Pharmacy 19.7 ml/min; Est GFR (African American) 10.5 ml/min; Est GFR (Non-African American) 9.1 ml/min; Globulin 3.2 gm/dl (2.5-4.0); Magnesium 2.4 mg/dl (1.7-2.4); Potassium 4.9 mmol/L (3.5-5.1); Total Protein 5.9 gm/dl (6.0-8.3)
--- NOTE | 2023-07-09 08:37 | Pharmacy Report ---
Pharmacy Glycemic Short Note 2 - Date of Service July 09, 2023 - Glycemic Short BSG Results (Last 24 hours): 07/08/23 07/08/23 07/08/23 11:19 16:23 20:09 Glucose POC Glucose 172 H 152 H 192 H 07/09/23 07/09/23 06:25 07:03 Glucose 166 H POC Glucose 157 H OUTPATIENT ANTIDIABETIC REGIMEN: * Jardiance 10 mg PO daily HbA1c: 6.3% (06/26/23) ASSESSMENT: 07/09/23: * Blood sugars ranging 152-192 mg/dL yesterday w/ fasting blood sugar of 157 mg/dL this morning * Received 106 units of insulin (40 units of basal and 56 units of prandial/correctional bolus) * Will increase basal insulin today and tighten carb ratio further * Steroids continue at methylprednisolone 75 mg IV BID 07/07/23: * DB is a 67 year old male who presents to ED today from [facility] due to elevated liver enzymes * Concern for immunotherapy-induced hepatitis in addition to MARILEE/CKD (SCr: 6.15 mg/dL) * Plan is for 1 mg/kg/day of methylprednisolone - 75 mg IV BID * Tighten Novolog parameters, increase basal as needed while on steroids PLAN FOR INPATIENT GLYCEMIC CONTROL: * Hold outpatient oral diabetes medications * Basal insulin * Lantus 40 units SC daily * Lantus 0-10-20 units SC HS (see EHR for details) * Bolus insulin * NovoLog per scale ACHS or Q6hrs while NPO * Goal Range: Low 110 mg/dL - High 140 mg/dL * Correction Factor: 12 mg/dL/unit * Nutritional / Prandial insulin per carb ratio of 1 unit per 4 grams CHO consumed
--- NOTE | 2023-07-09 09:01 | Hematology/Oncology Prog Note ---
Date of Service July 09, 2023 Assessment & Plan (1) Elevated LFTs: (2) Acute kidney injury superimposed on CKD: (3) Immunotherapy: Plan Although ALT and AST have significantly improved with IV steroids, recommend continuing with methylprednisolone IV until ALT and AST less than 5 times upper limit of normal (grade 1) after which he can be switched to prednisone 1 mg/kg/day which we will continue outpatient and taper slowly over 1-2 months. Admission and Anticipated Discharge Date Admission Date: July 07, 2023 Subjective He feels slightly better with improvement in energy level and was able to sleep through the night yesterday. ALT/AST continues to improve. Renal function stable Results & Data Vital Signs (Past 12 Hours) Vital Signs Temp Pulse Resp BP BP Pulse Ox O2 Del Method 07/09/23 07:03 36.4 C L 97 H 18 134/95 95 Room Air 07/09/23 03:37 36.4 C L 91 H 18 116/67 94 Room Air 07/08/23 23:49 36.5 C 88 18 110/65 93 Room Air
--- NOTE | 2023-07-09 10:48 | Nephrology Progress Note ---
Date of Service July 09, 2023 Assessment & Plan (1) Acute kidney injury superimposed on CKD: Plan: Non-oliguric. No emergent indication for dialysis. Electrolytes acceptable. Volume status euvolemic. Denies significant uremic symptoms. Azotemic but not uremic. BUN rising with steroids. Potential future indications for SALOON KEEPER were reviewed. Renal diet. Renal US did not demonstrate obstruction. Urine microscopy acellular. Hold furosemide, losartan, and empagliflozin. Maintain an even fluid balance. Document strict I/O's. Repeat metabolic profile tomorrow. (2) CKD (chronic kidney disease) stage 4, GFR 15-29 ml/min: Plan: CKD IV-V A3. Prognosis for renal recovery is guarded. Single kidney with multiple episodes of MARILEE. (3) Immunotherapy: Plan: Methylprednisolone x 3 days. Then, convert to prednisone. Immunotherapy held. (4) Heart failure with preserved ejection fraction: Plan: Volume status acceptable. Low sodium diet. Hold diuretics. Hold losartan and empagliflozin. Document I/O's. Document daily weights. (5) Renal cell carcinoma: Plan: Oncology following. Admission and Anticipated Discharge Date Admission Date: July 07, 2023 Subjective No acute events overnight. No complaints this AM. Paige feels well. He was seen and evaluated with his at the bedside. Paige denies fluid retention or edema. He is breathing comfortably. He notes that his heart rate has been elevated but he is not experiencing chest pains or palpitations. He denies lightheadedness or dizziness. Urine output is good. He denies abdominal pain or discomfort. Review of Systems Review of Systems: All systems reviewed & are unremarkable except as noted in HPI & below Physical Exam Constitutional: well developed and + morbidly obese; no acute distress Eyes: no scleral abnormality and no corneal abnormality ENMT: Mouth: no oral mucosal abnormality and oral mucous membranes not dry Neck: normal visual inspection and trachea midline Respiratory: normal respiratory effort Auscultation: lungs clear to auscultation bilaterally Cardiovascular: Rate/Rhythm: regular rate Heart Sounds: normal S1 and normal S2 Extremities: + edema (R>L) and + varicosities Musculoskeletal: Extremities: no cyanosis and no clubbing Skin: normal turgor; no lesions Neurologic: Motor/Sensory: no tremor and no asterixis Psychiatric: Orientation: alert and oriented x 3 Results & Data Vital Signs (Past 12 Hours) Vital Signs Temp Pulse Resp BP BP Pulse Ox O2 Del Method 07/09/23 07:03 36.4 C L 97 H 18 134/95 95 Room Air 07/09/23 03:37 36.4 C L 91 H 18 116/67 94 Room Air 07/08/23 23:49 36.5 C 88 18 110/65 93 Room Air Laboratory Results Laboratory Results - last 24 hr 07/08/23 07/08/23 07/08/23 11:19 16:23 20:09 WBC RBC Hgb Hct MCV MCH MCHC RDW Std Deviation RDW Coeff of Nick Plt Count MPV Immature Gran % (Auto) Neut % (Auto) Lymph % (Auto) [place] % (Auto) Eos % (Auto) Baso % (Auto) Neut # (Auto) Lymph # (Auto) [place] # (Auto) Eos # (Auto) Baso # (Auto) Immature Gran # (Auto) PT INR Sodium Potassium Chloride Carbon Dioxide Anion Gap BUN Creatinine Est Cr Clr Drug Dosing Est GFR ( Amer) Est GFR (Non-Af Amer) BUN/Creatinine Ratio Glucose POC Glucose 172 H 152 H 192 H Calcium Magnesium Total Bilirubin AST ALT Alkaline Phosphatase Total Protein Albumin Globulin Albumin/Globulin Ratio 07/09/23 07/09/23 06:25 07:03 WBC 11.27 H RBC 4.36 L Hgb 11.9 L Hct 35.9 L MCV 82.3 MCH 27.3 MCHC 33.1 RDW Std Deviation 55.1 H RDW Coeff of Nick 18.6 H Plt Count 173 MPV 10.9 Immature Gran % (Auto) 1.0 Neut % (Auto) 85.8 Lymph % (Auto) 8.1 [place] % (Auto) 5.0 Eos % (Auto) 0.0 Baso % (Auto) 0.1 Neut # (Auto) 9.68 H Lymph # (Auto) 0.91 L [place] # (Auto) 0.56 Eos # (Auto) 0.00 Baso # (Auto) 0.01 Immature Gran # (Auto) 0.11 PT 13.7 H INR 1.3 H Sodium 134 L Potassium 4.9 Chloride 107 Carbon Dioxide 16 L Anion Gap 11 BUN 118 H Creatinine 5.83 H* Est Cr Clr Drug Dosing 19.7 Est GFR ( Amer) 10.5 Est GFR (Non-Af Amer) 9.1 BUN/Creatinine Ratio 20.2 H Glucose 166 H POC Glucose 157 H Calcium 9.5 Magnesium 2.4 Total Bilirubin 1.0 AST 200 H ALT 333 H Alkaline Phosphatase 258 H Total Protein 5.9 L Albumin 2.7 L Globulin 3.2 Albumin/Globulin Ratio 0.8 L Diagnostic Findings RENAL ULTRASOUND COMPARISON: Abdominal ultrasound 07/07/2023. FINDINGS: Right kidney: Surgically absent. No masses or fluid collections within the nephrectomy bed. Left kidney: 14.6 cm. A few cysts with the largest in the upper pole measuring 4.5 cm. No hydronephrosis. Normal corticomedullary differentiation and cortical thickness. Bladder: No bladder wall thickening. The left ureteral jet was identified. IMPRESSION: 1. Prior right nephrectomy. 2. Left renal cysts. 3. No left-sided hydronephrosis. PG Care Time/CCT Total # of Minutes Spent Total Time Spent with Patient: Total time spent is greater than 50% in coordination of care (as documented) at patient's floor/unit and/or counseling patient: Coding Level of Care Code 04684 SUB INP/OBS CARE 3/50MIN Diagnoses Acute kidney injury superimposed on CKD N17.9; N18.9 CKD (chronic kidney disease) stage 4, GFR 15-29 ml/min N18.4 Immunotherapy Z29.89 Heart failure with preserved ejection fraction I50.30 Renal cell carcinoma C64.9
[2023-07-09] MEDS: SODIUM BICARBONATE 650 MG TAB PO SCH (12:09)
--- NOTE | 2023-07-09 18:02 | Hospitalist Progress Note ---
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 Grijalva's recs transition to oral prednisone 1 mg/kg/day when ALT/AST are below 5 times ULN, 1-2 mo taper (2) Acute kidney injury superimposed on CKD: Plan: MARILEE on CKD-4, non-oliguric -Cr noted to be 6.11 with BUN of 105 on outpatient CMP prior to ED arrival -Baseline Cr is ~3.5, per last Nephrology clinic note on 05/20/23 -diuretics, losartan and empaglifozin held -may be prerenal injury, there is a possibility of immunotherapy-induced MARILEE -appreciate nephrology consultation reviewed recs by Dr. Danielle -renal US 07/07 reviewed - R nephrectomy, L kidney with cysts, no hydronephrosis -lokelma given at admission, 07/07. Potassium normal range today -only slight improvement in Cr last 48h -reviewed recs in Dr. danielle's note -AM BMP (3) High anion gap metabolic acidosis: Plan: Related to renal dysfunction Nabicarb drip given at admission -monitor BMP (4) Hyperglycemia: Plan: -Patient's last Hgb A1c on 06/26/23 was 6.3 -Was started on Jardiance for his CHF and CKD -Hold Jardiance for now -Monitor BSG q6h until stable, goal is 110-160 on IV steroids -Continue glargine and premeal/correctional short acting -Pharmacy glycemic consult placed for increased risk of ongoing hyperglycemic with IV steroid treatment -BG overall at short term goal today <180 with one high (5) Generalized weakness: Plan: related to dehydration, MARILEE, hepatitis, and current renal cell carcinoma on immunotherapy -improved (6) Hypothyroidism: Plan: -Continue levothyroxine. TSH 8. Dose was just increased to 200 mcg as outpatient several days ago -follow up in primary care for TSH monitoring (7) Renal cell carcinoma: Plan: -Oncology consulted -Last dose of immunotherapy was on 06/16/23, was supposed to have 4th cycle 07/06 -Continue to follow with Oncology on discharge (8) Hypertension: Plan: -Stable -Holding lasix losartan and Jardiance with MARILEE and dehydration -continue metoprolol for now (9) Heart failure with preserved ejection fraction: Plan: -Hold lasix and Jardiance -Continue metoprolol -monitor volume status (10) SARAH (obstructive sleep apnea): Plan: -HS CPAP ordered Plan Chronic atrial fibrillation -continue metoprolol and apixaban DVT ppx - DOAC Admission and Anticipated Discharge Date Admission Date: July 07, 2023 Subjective still feels fine, still has good urine output. Leg edema increased some appetite now good, malaise improved Physical Exam 2 Physical Exam: VS reviewed, afebrile, BP normal, on room air 96% Sitting in chair again appears well Lungs CTAB without RRG Heart irreg irreg without mrg Abd s/nt/nd +BT LE wwp with 2+ edema, no cyanosis Skin w/d without rashes AOx4 face symmetric normal speech moves 4 ext symmetrically Results & Data Results & Data Vital Signs (Past 12 Hours) Vital Signs Temp Pulse Pulse Resp BP Pulse Ox O2 Del Method 07/09/23 15:21 36.5 C 104 H 20 133/72 95 Room Air 07/09/23 15:11 94 H 07/09/23 11:45 36.4 C L 91 H 18 130/74 96 Room Air 07/09/23 10:20 Room Air 07/09/23 07:03 36.4 C L 97 H 18 134/95 95 Room Air Laboratory Results 07/09/23 06:25 07/09/23 06:25 PG Care Time/CCT Total # of Minutes Spent Total Time Spent with Patient: Total time spent is greater than 50% in coordination of care (as documented) at patient's floor/unit and/or counseling patient: Coding Level of Care Code 13252 SUB INP/OBS CARE 2/35MIN Diagnoses Elevated LFTs R79.89 Acute kidney injury superimposed on CKD N17.9; N18.9 High anion gap metabolic acidosis E87.29 Hyperglycemia R73.9 Generalized weakness R53.1 Hypothyroidism E03.9 Renal cell carcinoma C64.9 Hypertension I10 Heart failure with preserved ejection fraction I50.30 SARAH (obstructive sleep apnea) G47.33
[2023-07-10 06:55] LABS: Basophils # (auto) 0.01 K/uL (0.00-0.20); Basophils % (auto) 0.1 %; Hematocrit (blood only) 36.3 % (42.0-52.0); Hemoglobin 12.2 g/dl (14.0-18.0); Immature Granulocytes # (auto) 0.13 K/uL (0.01-0.20); Immature Granulocytes % (auto) 1.1 %; Lymphocytes % (auto) 7.3 %; Mean Corpuscular Hemoglobin 27.7 pg (25.0-34.0); Mean Corpuscular Hgb Conc 33.6 g/dL (32.0-36.0); Mean Corpuscular Volume 82.3 fL (80.0-100.0); Mean Platelet Volume 11.1 fL (9.4-12.4); Monocytes # (auto) 0.65 K/uL (0.11-0.59); Monocytes % (auto) 5.3 %; Neutrophils # (auto) 10.59 K/uL (1.40-6.50); Neutrophils % (auto) 86.2 %; Platelet Count 184 K/uL (130-400); RDW Coefficient of Variation 18.6 % (11.5-14.5); RDW Standard Deviation 54.7 fL (36.4-46.3); Red Blood Count 4.41 M/uL (4.70-6.10); White Blood Count 12.28 K/ul (4.8-10.8)
[2023-07-10 07:18] LABS: INR 1.3 (0.9-1.1); Prothrombin Time 13.8 Seconds (9.0-12.0)
[2023-07-10 07:20] LABS: Albumin Globulin Ratio 0.9 (0.9-2); Albumin Level 2.7 gm/dl (3.4-5.0); BUN Creatinine Ratio 22.9 (10-20); Calcium 9.1 mg/dl (8.6-10.3); Creatinine Clr Calc Pharmacy 22.1 ml/min; Est GFR (African American) 12.1 ml/min; Est GFR (Non-African American) 10.4 ml/min; Globulin 3.1 gm/dl (2.5-4.0); Magnesium 2.4 mg/dl (1.7-2.4); Potassium 4.7 mmol/L (3.5-5.1); Total Protein 5.8 gm/dl (6.0-8.3)
--- NOTE | 2023-07-10 08:06 | Hematology/Oncology Prog Note ---
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 After transitioning to prednisone, would recommend monitoring for at least another 24 hours to make sure LFTs do not worsen. If LFTs do not worsen while on prednisone, can be discharged home on same dose of prednisone. Will arrange for outpatient follow-up with [facility] in about 1 to 2 weeks with labs. Admission and Anticipated Discharge Date Admission Date: July 07, 2023 Subjective Labs continue to show improvement in LFTs and renal function. Can transition from IV Methylpred to prednisone 1 mg/kg/day. Results & Data Vital Signs (Past 12 Hours) Vital Signs Temp Pulse Pulse Resp BP BP Pulse Ox 07/10/23 07:37 36.4 C L 96 H 16 125/89 94 07/10/23 02:51 36.4 C L 89 15 124/83 93 07/09/23 22:45 36.9 C 56 L 20 115/67 98 O2 Del Method 07/10/23 07:37 Room Air 07/10/23 02:51 Room Air 07/09/23 22:45 Room Air
--- NOTE | 2023-07-10 09:14 | Pharmacy Report ---
Pharmacy Glycemic Short Note 2 - Date of Service July 10, 2023 - Glycemic Short BSG Results (Last 24 hours): 07/09/23 07/09/23 07/09/23 11:14 16:31 20:35 Glucose POC Glucose 226 H 119 H 182 H 07/10/23 07/10/23 06:16 07:12 Glucose 136 H POC Glucose 132 H OUTPATIENT ANTIDIABETIC REGIMEN: * Jardiance 10 mg PO daily HbA1c: 6.3% (06/26/23) ASSESSMENT: 07/10/23: * Chase received 104 units of SQ insulin yesterday * 50 units Lantus + 54 units Novolog * BSGs: 157, 226, 119, 182 mg/dL * On methylprednisolone 75 mg IV BID * Fasting BSG of 132 mg/dL is near goal. Continue current basal orders. * Post prandial BSGs were mostly above goal yesterday. Improved thus far today. * Methylprednisolone is being transitioned to prednisone PO this evening (160 mg daily) - regimen may require adjustment 07/09/23: * Blood sugars ranging 152-192 mg/dL yesterday w/ fasting blood sugar of 157 mg/dL this morning * Received 106 units of insulin (40 units of basal and 56 units of prandial/correctional bolus) * Will increase basal insulin today and tighten carb ratio further * Steroids continue at methylprednisolone 75 mg IV BID 07/07/23: * DB is a 67 year old male who presents to ED today from [facility] due to elevated liver enzymes * Concern for immunotherapy-induced hepatitis in addition to MARILEE/CKD (SCr: 6.15 mg/dL) * Plan is for 1 mg/kg/day of methylprednisolone - 75 mg IV BID * Tighten Novolog parameters, increase basal as needed while on steroids PLAN FOR INPATIENT GLYCEMIC CONTROL: * Hold outpatient oral diabetes medications * Basal insulin * Lantus 40 units SC daily * Lantus 0-10-20 units SC HS (see EHR for details) * Bolus insulin * NovoLog per scale ACHS or Q6hrs while NPO * Goal Range: Low 110 mg/dL - High 140 mg/dL * Correction Factor: 12 mg/dL/unit * Nutritional / Prandial insulin per carb ratio of 1 unit per 4 grams CHO consumed
--- NOTE | 2023-07-10 12:42 | Nephrology Progress Note ---
Date of Service July 10, 2023 Assessment & Plan (1) Acute kidney injury superimposed on CKD: Plan: Non-oliguric. No emergent indication for dialysis. Electrolytes acceptable. Volume status euvolemic. Denies significant uremic symptoms. Azotemic but not uremic. BUN rising with steroids. Potential future indications for GEOTECHNICIAN were reviewed. Renal diet. Renal US did not demonstrate obstruction. Urine microscopy acellular. Hold furosemide, losartan, and empagliflozin. Maintain an even fluid balance. Document strict I/O's. Repeat metabolic profile tomorrow. (2) CKD (chronic kidney disease) stage 4, GFR 15-29 ml/min: Plan: CKD IV-V A3. Prognosis for renal recovery is guarded. Single kidney with multiple episodes of MARILEE. (3) Immunotherapy: Plan: Methylprednisolone converted to prednisone today. LFTs improving. (4) Heart failure with preserved ejection fraction: Plan: Volume status acceptable. Low sodium diet. Hold diuretics. Hold losartan and empagliflozin. Document I/O's. Document daily weights. (5) Renal cell carcinoma: Plan: Oncology following. Admission and Anticipated Discharge Date Admission Date: July 07, 2023 Subjective No acute events overnight. Tiny continues to feel well. He denies fluid retention or edema. He is breathing comfortably. Appetite is good. Review of Systems Review of Systems: All systems reviewed & are unremarkable except as noted in HPI & below Physical Exam Constitutional: well developed and + morbidly obese; no acute distress Eyes: no scleral abnormality and no corneal abnormality ENMT: Mouth: no oral mucosal abnormality and oral mucous membranes not dry Neck: normal visual inspection and trachea midline Respiratory: normal respiratory effort Auscultation: lungs clear to auscultation bilaterally Cardiovascular: Rate/Rhythm: regular rate Heart Sounds: normal S1 and normal S2 Extremities: + edema (R>L) and + varicosities Musculoskeletal: Extremities: no cyanosis and no clubbing Skin: normal turgor; no lesions Neurologic: Motor/Sensory: no tremor and no asterixis Psychiatric: Orientation: alert and oriented x 3 Results & Data Vital Signs (Past 12 Hours) Vital Signs Temp Pulse Pulse Pulse Resp BP Pulse Ox 07/10/23 11:34 36.4 C L 84 18 119/82 95 07/10/23 09:00 92 H 07/10/23 08:10 07/10/23 07:37 36.4 C L 96 H 16 125/89 94 07/10/23 02:51 36.4 C L 89 15 124/83 93 O2 Del Method 07/10/23 11:34 Room Air 07/10/23 09:00 07/10/23 08:10 Room Air 07/10/23 07:37 Room Air 07/10/23 02:51 Room Air Laboratory Results Laboratory Results - last 24 hr 07/09/23 07/09/23 07/10/23 16:31 20:35 06:16 WBC 12.28 H RBC 4.41 L Hgb 12.2 L Hct 36.3 L MCV 82.3 MCH 27.7 MCHC 33.6 RDW Std Deviation 54.7 H RDW Coeff of Nick 18.6 H Plt Count 184 MPV 11.1 Immature Gran % (Auto) 1.1 Neut % (Auto) 86.2 Lymph % (Auto) 7.3 [place] % (Auto) 5.3 Eos % (Auto) 0.0 Baso % (Auto) 0.1 Neut # (Auto) 10.59 H Lymph # (Auto) 0.90 L [place] # (Auto) 0.65 H Eos # (Auto) 0.00 Baso # (Auto) 0.01 Immature Gran # (Auto) 0.13 PT 13.8 H INR 1.3 H Sodium 136 Potassium 4.7 Chloride 108 H Carbon Dioxide 16 L Anion Gap 12 H BUN 119 H Creatinine 5.19 H* D Est Cr Clr Drug Dosing 22.1 Est GFR ( Amer) 12.1 Est GFR (Non-Af Amer) 10.4 BUN/Creatinine Ratio 22.9 H Glucose 136 H POC Glucose 119 H 182 H Calcium 9.1 Magnesium 2.4 Total Bilirubin 1.0 AST 125 H ALT 285 H Alkaline Phosphatase 235 H Total Protein 5.8 L Albumin 2.7 L Globulin 3.1 Albumin/Globulin Ratio 0.9 07/10/23 07/10/23 07:12 11:26 WBC RBC Hgb Hct MCV MCH MCHC RDW Std Deviation RDW Coeff of Nick Plt Count MPV Immature Gran % (Auto) Neut % (Auto) Lymph % (Auto) [place] % (Auto) Eos % (Auto) Baso % (Auto) Neut # (Auto) Lymph # (Auto) [place] # (Auto) Eos # (Auto) Baso # (Auto) Immature Gran # (Auto) PT INR Sodium Potassium Chloride Carbon Dioxide Anion Gap BUN Creatinine Est Cr Clr Drug Dosing Est GFR ( Amer) Est GFR (Non-Af Amer) BUN/Creatinine Ratio Glucose POC Glucose 132 H 154 H Calcium Magnesium Total Bilirubin AST ALT Alkaline Phosphatase Total Protein Albumin Globulin Albumin/Globulin Ratio PG Care Time/CCT Total # of Minutes Spent Total Time Spent with Patient: Total time spent is greater than 50% in coordination of care (as documented) at patient's floor/unit and/or counseling patient: Coding Level of Care Code 26160 SUB INP/OBS CARE 3/50MIN Diagnoses Acute kidney injury superimposed on CKD N17.9; N18.9 CKD (chronic kidney disease) stage 4, GFR 15-29 ml/min N18.4 Immunotherapy Z29.89 Heart failure with preserved ejection fraction I50.30 Renal cell carcinoma C64.9
[2023-07-10] MEDS: predniSONE 20 MG TAB PO ONE (14:44)
--- NOTE | 2023-07-10 17:35 | Hospitalist Progress Note ---
Date of Service July 10, 2023 Assessment & Plan (1) Elevated LFTs: Plan: 67-year-old male with a past medical history of stage I right renal cell carcinoma s/p radical nephrectomy 2009, CKD 4, aortic stenosis post TAVR with bioprosthetic valve 2022, A-fib on Eliquis anticoagulation, and stage IV left renal cell carcinoma who has received ipimimumab/nivolumab therapy following with 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 Grijalva's recs transition to oral prednisone, 1-2 mo taper (2) Acute kidney injury superimposed on CKD: Plan: MARILEE on CKD-4, non-oliguric -Cr noted to be 6.11 with BUN of 105 on outpatient CMP prior to ED arrival -Baseline Cr is ~3.5, per last Nephrology clinic note on 05/20/23 -diuretics, losartan and empaglifozin held -may be prerenal injury, there is a possibility of immunotherapy-induced MARILEE -appreciate nephrology consultation reviewed recs by Dr. Timmons -renal US 07/07 reviewed - R nephrectomy, L kidney with cysts, no hydronephrosis -lokelma given at admission, 07/07. Potassium normal range 4.7 today -only small improvement in Cr 6.27-->5.19 -reviewed recs in Dr. Timmons's note 07/09 -AM BMP (3) High anion gap metabolic acidosis: Plan: Related to renal dysfunction Nabicarb drip given at admission -monitor BMP (4) Hyperglycemia: Plan: -Patient's last Hgb A1c on 06/26/23 was 6.3 -Was started on Jardiance for his CHF and CKD -Hold Jardiance for now -Monitor BSG q6h until stable, goal is 110-160 on IV steroids -Continue glargine and premeal/correctional short acting -Pharmacy glycemic consult placed for increased risk of ongoing hyperglycemic with IV steroid treatment -BG overall at short term goal 07/09 - getting 40 units of glargine, no short acting given. -will consult DM educator - with 1-2 month steroid taper at high doses and MARILEE making metformin, jardiance problematic, seems likely to require insulin (5) Generalized weakness: Plan: related to dehydration, MARILEE, hepatitis, and current renal cell carcinoma on immunotherapy -improved (6) Hypothyroidism: Plan: -Continue levothyroxine. TSH 8. Dose was just increased to 200 mcg as outpatient several days ago -follow up in primary care for TSH monitoring (7) Renal cell carcinoma: Plan: -Oncology consulted -Last dose of immunotherapy was on 06/16/23, was supposed to have 4th cycle 07/06 -Continue to follow with Oncology on discharge (8) Hypertension: Plan: -Stable -Holding lasix losartan and Jardiance with MARILEE and dehydration -continue metoprolol for now (9) Heart failure with preserved ejection fraction: Plan: -Hold lasix and Jardiance -Continue metoprolol -monitor volume status (10) SARAH (obstructive sleep apnea): Plan: -HS CPAP ordered Plan Chronic atrial fibrillation -continue metoprolol and apixaban DVT ppx - DOAC Admission and Anticipated Discharge Date Admission Date: July 07, 2023 Subjective still fatigued but getting better, good appetite now Leg edema unchanged since yesterday No shortness of breath/cough Good UOP of 1400 last 24h, weight down last 48h Physical Exam 2 Physical Exam: VS reviewed, afebrile, BP normal, on room air exam unchanged 07/09 Sitting in chair again appears well Lungs CTAB without RRG Heart irreg irreg without mrg Abd s/nt/nd +BT LE wwp with 2+ edema, no cyanosis Skin w/d without rashes AOx4 face symmetric normal speech moves 4 ext symmetrically Results & Data Results & Data Vital Signs (Past 12 Hours) Vital Signs Temp Pulse Pulse Resp BP Pulse Ox O2 Del Method 07/10/23 15:49 36.5 C 90 18 114/73 98 Room Air 07/10/23 14:00 87 07/10/23 11:34 36.4 C L 84 18 119/82 95 Room Air 07/10/23 09:00 92 H 07/10/23 08:10 Room Air 07/10/23 07:37 36.4 C L 96 H 16 125/89 94 Room Air Laboratory Results 07/10/23 06:16 07/10/23 06:16 PG Care Time/CCT Total # of Minutes Spent Total Time Spent with Patient: Total time spent is greater than 50% in coordination of care (as documented) at patient's floor/unit and/or counseling patient: Coding Level of Care Code 67306 SUB INP/OBS CARE 2/35MIN Diagnoses Elevated LFTs R79.89 Acute kidney injury superimposed on CKD N17.9; N18.9 High anion gap metabolic acidosis E87.29 Hyperglycemia R73.9 Generalized weakness R53.1 Hypothyroidism E03.9 Renal cell carcinoma C64.9 Hypertension I10 Heart failure with preserved ejection fraction I50.30 SARAH (obstructive sleep apnea) G47.33
[2023-07-11] MEDS: INSULIN ASPART PER UNIT CHARGE SC SCH (00:22)
[2023-07-11] MEDS: predniSONE 50 MG TAB PO SCH (08:25)
[2023-07-11] MEDS: predniSONE 20 MG TAB PO SCH (08:25)
[2023-07-11] MEDS: INSULIN HUMAN NPH SC SCH (08:47)
[2023-07-11] MEDS ORDERED: predniSONE 50 MG TAB PO SCH (09:00)
[2023-07-11 10:11] LABS: Albumin Globulin Ratio 0.9 (0.9-2); Albumin Level 2.8 gm/dl (3.4-5.0); BUN Creatinine Ratio 25.1 (10-20); Bilirubin,Total 1.1 mg/dl (0.2-1.0); Calcium 8.7 mg/dl (8.6-10.3); Creatinine Clr Calc Pharmacy 24.1 ml/min; Est GFR (African American) 13.5 ml/min; Est GFR (Non-African American) 11.6 ml/min; Potassium 4.4 mmol/L (3.5-5.1); Total Protein 5.8 gm/dl (6.0-8.3)
--- NOTE | 2023-07-11 12:18 | Nephrology Progress Note ---
Date of Service July 11, 2023 Assessment & Plan (1) Acute kidney injury superimposed on CKD: Plan: Non-oliguric. No emergent indication for dialysis. Electrolytes acceptable. Volume status euvolemic. Denies significant uremic symptoms. BUN rising with steroids. Potential future indications for [employer] were reviewed. Renal diet. Renal US did not demonstrate obstruction. Urine microscopy acellular. Hold furosemide, losartan, and empagliflozin. Maintain an even fluid balance. Document strict I/O's. Monitor metabolic profile daily while inpatient. Repeat a metabolic profile next week. Paige is scheduled for follow up in the hematology clinic next week. I will arrange follow up in the [facility] nephrology clinic in [place] on July 21. I discussed the plan of care with Dr. Castellanos this morning. Nephrology will follow peripherally, please call with questions or concerns. (2) CKD (chronic kidney disease) stage 4, GFR 15-29 ml/min: Plan: CKD IV-V A3. Prognosis for renal recovery is guarded. Single kidney with multiple episodes of MARILEE. (3) Immunotherapy: Plan: Methylprednisolone converted to prednisone. LFTs improving. (4) Heart failure with preserved ejection fraction: Plan: Volume status acceptable. Low sodium diet. Hold diuretics. Hold losartan and empagliflozin. Document daily weights. (5) Renal cell carcinoma: Admission and Anticipated Discharge Date Admission Date: July 07, 2023 Subjective No acute events overnight. Paige was seen and evaluated with his at the bedside. He feels well overall. Denies shortness of breath. He denies fluid retention or edema. No lightheadedness or dizziness. No chest pains or palpitations. He was hoping to be discharged home today. Review of Systems Review of Systems: All systems reviewed & are unremarkable except as noted in HPI & below Physical Exam Constitutional: well developed and + morbidly obese; no acute distress Eyes: no scleral abnormality and no corneal abnormality ENMT: Mouth: no oral mucosal abnormality and oral mucous membranes not dry Neck: normal visual inspection and trachea midline Respiratory: normal respiratory effort Auscultation: lungs clear to auscultation bilaterally Cardiovascular: Rate/Rhythm: regular rate Heart Sounds: normal S1 and normal S2 Extremities: + edema (R>L) and + varicosities Musculoskeletal: Extremities: no cyanosis and no clubbing Skin: normal turgor; no lesions Neurologic: Motor/Sensory: no tremor and no asterixis Psychiatric: Orientation: alert and oriented x 3 Results & Data Vital Signs (Past 12 Hours) Vital Signs Temp Pulse Pulse Resp BP Pulse Ox O2 Del Method 07/11/23 11:47 36.3 C L 95 H 19 135/87 95 Room Air 07/11/23 09:11 90 07/11/23 07:20 36.3 C L 92 H 19 130/77 96 Room Air 07/11/23 02:55 36.5 C 93 H 18 108/58 L 95 Room Air Laboratory Results Laboratory Results - last 24 hr 07/10/23 07/10/23 07/11/23 16:00 20:54 00:14 Sodium Potassium Chloride Carbon Dioxide Anion Gap BUN Creatinine Est Cr Clr Drug Dosing Est GFR ( Amer) Est GFR (Non-Af Amer) BUN/Creatinine Ratio Glucose POC Glucose 139 H 140 H 124 H Calcium Total Bilirubin AST ALT Alkaline Phosphatase Total Protein Albumin Globulin Albumin/Globulin Ratio 07/11/23 07/11/23 07/11/23 07:18 09:13 11:46 Sodium 137 Potassium 4.4 Chloride 109 H Carbon Dioxide 16 L Anion Gap 12 H BUN 119 H Creatinine 4.75 H* D Est Cr Clr Drug Dosing 24.1 Est GFR ( Amer) 13.5 Est GFR (Non-Af Amer) 11.6 BUN/Creatinine Ratio 25.1 H Glucose 211 H POC Glucose 110 H 146 H Calcium 8.7 Total Bilirubin 1.1 H AST 74 H ALT 223 H Alkaline Phosphatase 213 H Total Protein 5.8 L Albumin 2.8 L Globulin 3.0 Albumin/Globulin Ratio 0.9 PG Care Time/CCT Total # of Minutes Spent Total Time Spent with Patient: Total time spent is greater than 50% in coordination of care (as documented) at patient's floor/unit and/or counseling patient: Coding Level of Care Code 56447 SUB INP/OBS CARE 3/50MIN Diagnoses Acute kidney injury superimposed on CKD N17.9; N18.9 CKD (chronic kidney disease) stage 4, GFR 15-29 ml/min N18.4 Immunotherapy Z29.89 Heart failure with preserved ejection fraction I50.30 Renal cell carcinoma C64.9
--- NOTE | 2023-07-11 12:56 | Pharmacy Report ---
Pharmacy Glycemic Short Note 2 - Date of Service July 11, 2023 - Glycemic Short BSG Results (Last 24 hours): 07/10/23 07/10/23 07/11/23 16:00 20:54 00:14 Glucose POC Glucose 139 H 140 H 124 H 07/11/23 07/11/23 07/11/23 07:18 09:13 11:46 Glucose 211 H POC Glucose 110 H 146 H OUTPATIENT ANTIDIABETIC REGIMEN: * Jardiance 10 mg PO daily HbA1c: 6.3% (06/26/23) ASSESSMENT: 07/11/23: * Chase received 101 units of SQ insulin yesterday (50 units basal + 51 units bolus) with good glycemic control; 132, 154, 139, 140 mg/dL. * Patient was transitioned to prednisone 160 mg PO daily this morning. Dose is to be tapered by 10 mg every three days. Anticipate possible discharge tomorrow. Will transition regimen to NPH as this seems like the most reasonable insulin to continue as an outpatient while on once daily prednisone. * Will start with NPH 40 units daily. This will likely need to be increased on 07/11 to account for the removal of short acting insulin moving forward. NPH dose will need to be decreased with each decrease in prednisone dose. Discussed plan with CDE and Hospitalist - exact dosing still TBD. 07/10/23: * Chase received 104 units of SQ insulin yesterday * 50 units Lantus + 54 units Novolog * BSGs: 157, 226, 119, 182 mg/dL * On methylprednisolone 75 mg IV BID * Fasting BSG of 132 mg/dL is near goal. Continue current basal orders. * Post prandial BSGs were mostly above goal yesterday. Improved thus far today. * Methylprednisolone is being transitioned to prednisone PO this evening (160 mg daily) - regimen may require adjustment 07/09/23: * Blood sugars ranging 152-192 mg/dL yesterday w/ fasting blood sugar of 157 mg/dL this morning * Received 106 units of insulin (40 units of basal and 56 units of prandial/correctional bolus) * Will increase basal insulin today and tighten carb ratio further * Steroids continue at methylprednisolone 75 mg IV BID 07/07/23: * DB is a 67 year old male who presents to ED today from [facility] [[email or web address]] due to elevated liver enzymes * 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
--- NOTE | 2023-07-11 17:30 | Hospitalist Progress Note ---
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 Grijalva - given high starting dose due to weight will taper by 10 mg every three days. He has office appt with her and she will get weekly labs -home in AM if cont improving -working out insulin regimen meanwhile (2) Acute kidney injury superimposed on CKD: Plan: MARILEE on CKD-4, non-oliguric -Cr noted to be 6.11 with BUN of 105 on outpatient CMP prior to ED arrival -Baseline Cr is ~3.5, per last Nephrology clinic note on 05/20/23 -may be prerenal injury, there is a possibility of immunotherapy-induced MARILEE -appreciate nephrology consultation reviewed recs by Dr. Timmons -renal US 07/07 reviewed - R nephrectomy, L kidney with cysts, no hydronephrosis -lokelma given at admission, 07/07. Potassium normal range last few days -improvement in Cr 6.27-->4.75 with good UOP -discussed with Dr. Timmons - ok for discharge, he will have weekly labs and made office appt for 07/21 -diuretics, losartan and empaglifozin held - continue holding on discharge -AM BMP (3) High anion gap metabolic acidosis: Plan: Related to renal dysfunction Nabicarb drip given at admission -monitor BMP (4) Hyperglycemia: Plan: -Patient's last Hgb A1c on 06/26/23 was 6.3 -Was started on Jardiance for his CHF and CKD -Hold Jardiance for now -Monitor BSG q6h until stable, goal is 110-160 on IV steroids -Continue glargine and premeal/correctional short acting -Pharmacy glycemic consult placed for increased risk of ongoing hyperglycemic with IV steroid treatment -discussed with certified breastfeeding educator - recommends NPH for outpatient steroid- induced hyperglycemia. Working on an insulin scale with pharmacist based on his prednisone taper dosing (5) Generalized weakness: Plan: related to dehydration, MARILEE, hepatitis, and current renal cell carcinoma on immunotherapy -improved (6) Hypothyroidism: Plan: -Continue levothyroxine. TSH 8. Dose was just increased to 200 mcg as outpatient several days ago -follow up in primary care for TSH monitoring (7) Renal cell carcinoma: Plan: -Oncology consulted -Last dose of immunotherapy was on 06/16/23, was supposed to have 4th cycle 07/06 -Continue to follow with Oncology on discharge (8) Hypertension: Plan: -Holding lasix losartan and Jardiance with MARILEE and dehydration -continue metoprolol for now -BP acceptable (9) Heart failure with preserved ejection fraction: Plan: -Hold lasix and Jardiance -Continue metoprolol -monitor volume status, has more edema, may need to resume lasix soon as outpatient (10) SARAH (obstructive sleep apnea): Plan: -HS CPAP ordered Plan Chronic atrial fibrillation -continue metoprolol and apixaban DVT ppx - DOAC updated his and son in the room today Admission and Anticipated Discharge Date Admission Date: July 07, 2023 Subjective Doing well, wants to go home. Bilateral leg edema unchanged and no dyspnea/wheeze Met with DM educator today Physical Exam Physical Exam: VS reviewed less tachycardic last 48h, afebrile, BP normal, on room air exam unchanged 07/10 Sitting on EOB, family visiting Lungs CTAB without RRG Heart irreg irreg without mrg Abd s/nt/nd +BT LE wwp with 2+ edema, no cyanosis Skin w/d without rashes AOx4 face symmetric normal speech moves 4 ext symmetrically Results & Data Results & Data Vital Signs (Past 12 Hours) Vital Signs Temp Pulse Pulse Resp BP Pulse Ox O2 Del Method 07/11/23 16:31 104 H 07/11/23 16:02 36.3 C L 90 19 138/85 98 Room Air 07/11/23 11:47 36.3 C L 95 H 19 135/87 95 Room Air 07/11/23 09:11 90 07/11/23 07:20 36.3 C L 92 H 19 130/77 96 Room Air PG Care Time/CCT Total # of Minutes Spent Total Time Spent with Patient: I personally spent: 55 minutes today on clinical care activities including: reviewing chart notes and vital signs reviewing labs discussion with business intelligence consultant(s)- oncology, nephrology discussion with certified breastfeeding educator examining and counseling the patient counseling the patient's family writing orders documentation Coding Level of Care Code 70878 SUB INP/OBS CARE 3/50MIN Diagnoses Elevated LFTs R79.89 Acute kidney injury superimposed on CKD N17.9; N18.9 High anion gap metabolic acidosis E87.29 Hyperglycemia R73.9 Generalized weakness R53.1 Hypothyroidism E03.9 Renal cell carcinoma C64.9 Hypertension I10 Heart failure with preserved ejection fraction I50.30 SARAH (obstructive sleep apnea) G47.33
[2023-07-12 07:30] LABS: Albumin Level 2.8 gm/dl (3.4-5.0); BUN Creatinine Ratio 25.5 (10-20); Bilirubin,Total 1.1 mg/dl (0.2-1.0); Calcium 8.5 mg/dl (8.6-10.3); Creatinine Clr Calc Pharmacy 24.8 ml/min; Est GFR (African American) 13.9 ml/min; Globulin 2.9 gm/dl (2.5-4.0); Potassium 4.6 mmol/L (3.5-5.1); Total Protein 5.7 gm/dl (6.0-8.3)
--- NOTE | 2023-07-12 08:30 | Nephrology Progress Note ---
Date of Service July 12, 2023 Assessment & Plan (1) Acute kidney injury superimposed on CKD: Plan: * Cr has improved from 6.3 to 4.62. Patient is nonoliguric. Electrolyte balance is acceptable. No acute indication for HD at this time * Continue to hold furosemide, losartan, and empagliflozin. * Dr. Timmons has arranged outpatient Nephrology follow up in [place] 07/22/23 (2) CKD (chronic kidney disease) stage 4, GFR 15-29 ml/min: Plan: * CKD IV-V A3. Prognosis for renal recovery is guarded. * Single kidney with multiple episodes of MARILEE. (3) Immunotherapy: Plan: * Methylprednisolone converted to prednisone. LFTs improving. (4) Heart failure with preserved ejection fraction: Plan: * Volume status acceptable. Low sodium diet. Hold diuretics. Hold losartan and empagliflozin. Document daily weights. (5) Renal cell carcinoma: Admission and Anticipated Discharge Date Admission Date: July 07, 2023 Subjective Mr. Guadalupe was evaluated in his hospital room this morning. He denied fever, angina, dyspnea, abdominal discomfort or uremic symptoms. He reports brisk UO Review of Systems Constitutional: no fever Eyes: no problem reported Ear, Nose, Mouth, Throat: no problem reported Respiratory: no cough and no dyspnea Cardiovascular: no chest pain Gastrointestinal: no abdominal pain, no nausea, no vomiting and no diarrhea/loose stools Integumentary: no rash Neurologic: no problem reported Physical Exam Constitutional: no acute distress Eyes: PERRL, conjunctivae normal, anicteric sclerae ENMT: external ear and nose normal, oropharynx normal Neck: trachea midline, no thyromegaly Respiratory: normal respiratory effort, lungs clear to auscultation Cardiovascular: RRR, no murmur, no edema Gastrointestinal (Abdomen): normal bowel sounds, soft, nontender, no hepatosplenomegaly Skin: no rashes, warm and dry Neurologic: Speech / Cognition: normal speech and normal cognition Results & Data Vital Signs (Past 12 Hours) Vital Signs Temp Pulse Pulse Resp BP BP Pulse Ox 07/12/23 07:57 36.4 C L 91 H 18 128/80 98 07/12/23 03:03 36.3 C L 92 H 18 136/87 98 07/11/23 23:23 36.4 C L 79 17 120/76 96 07/11/23 22:00 93 H O2 Del Method 07/12/23 07:57 Room Air 07/12/23 03:03 Room Air 07/11/23 23:23 Room Air 07/11/23 22:00 Laboratory Results Laboratory Results - last 24 hr 07/11/23 07/11/23 07/11/23 09:13 11:46 16:19 Sodium 137 Potassium 4.4 Chloride 109 H Carbon Dioxide 16 L Anion Gap 12 H BUN 119 H Creatinine 4.75 H* D Est Cr Clr Drug Dosing 24.1 Est GFR ( Amer) 13.5 Est GFR (Non-Af Amer) 11.6 BUN/Creatinine Ratio 25.1 H Glucose 211 H POC Glucose 146 H 141 H Calcium 8.7 Total Bilirubin 1.1 H AST 74 H ALT 223 H Alkaline Phosphatase 213 H Total Protein 5.8 L Albumin 2.8 L Globulin 3.0 Albumin/Globulin Ratio 0.9 07/11/23 07/12/23 07/12/23 20:33 05:57 07:20 Sodium 138 Potassium 4.6 Chloride 109 H Carbon Dioxide 17 L Anion Gap 12 H BUN 118 H Creatinine 4.62 H* Est Cr Clr Drug Dosing 24.8 Est GFR ( Amer) 13.9 Est GFR (Non-Af Amer) 12.0 BUN/Creatinine Ratio 25.5 H Glucose 85 POC Glucose 150 H 79 Calcium 8.5 L Total Bilirubin 1.1 H AST 58 H ALT 189 H Alkaline Phosphatase 190 H Total Protein 5.7 L Albumin 2.8 L Globulin 2.9 Albumin/Globulin Ratio 1.0 PG Care Time/CCT Total # of Minutes Spent Total Time Spent with Patient: Total time spent is greater than 50% in coordination of care (as documented) at patient's floor/unit and/or counseling patient: Coding Level of Care Code 30860 SUB INP/OBS CARE 3/50MIN Diagnoses Acute kidney injury superimposed on CKD N17.9; N18.9 CKD (chronic kidney disease) stage 4, GFR 15-29 ml/min N18.4 Immunotherapy Z29.89 Heart failure with preserved ejection fraction I50.30 Renal cell carcinoma C64.9
[2023-07-12] MEDS: INSULIN HUMAN NPH SC SCH ×2 (08:56→08:59)
--- NOTE | 2023-07-12 19:22 | Discharge Summary ---
Date of Service July 12, 2023 Admission HPI Per Admitting Provider Chase is a 67 year old male with a PMH significant for Renal cell carcinoma S/P radical right nephrectomy in 2009 (on Nivolumab and Ipilimumab), aortic stenosis S/P TAVR in November of 2022, afib (on eliquis), hypothyroidism, stage IV CKD, SARAH on CPAP, HFpEF, and HTN who presented to the [facility] ED [facility]23 [facility] due to concerns for elevated LFTs. History obtained [facility] who explained that the patient was supposed to receive his next dose of immunotherapy today but this was held due to elevated LFTs on pre-treatment labs. High suspicion for immunotherapy induced hepatitis. On arrival to the ED the patient was noted to be tachycardic at 106 but otherwise stable. CMP from this am prior to ED arrival was significant for a Cr of 6.11 (baseline is ~3.5 per last Nephrology note), BUN of 105, AG of 12 with bicarb of 14, corrected sodium of 133, glucose of 249, total bili of 1.2, AST of 427, ALT of 458, alk phos of 323, with acute hepatitis panel in process. RUQ US was obtained but is in process. At the time of the exam the patient was sitting in bed in no acute distress with his bedside, history was obtained from both. Over the past 2 weeks the patient has been experiencing progressive generalized weakness and malaise. Oral intake has been poor over this time, he continue to take all medications as prescribed including his lasix and Jardiance. Denies recent fever, chills, chest pain, cough, congestion, sore throat, abd pain, nausea, vomiting, diarrhea, dysuria, hematuria, decreased urine output, increased LE swelling, and recent trauma. Denies excessive acetaminophen use and has not used NSAID's recently. He is a full code and his is his POA. 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 Heart: deferred Abdomen: nondistended. skin: Warm dry no rashes Extremities: Warm, dry, well-perfused. 2+ symmetric lower extremity edema. Neuro: Alert and oriented x 4, face symmetric, moves 4 extremities well Psych: Normal affect and behavior Discharge Data Allergies Allergy/AdvReac Type Severity Reaction Status Date / Time No Known Allergies Allergy Verified 05/20/23 14:12 Consultations 07/07/23 10:27 ED Decision to Admit Stat 07/07/23 10:43 Consult Oncology Routine 07/07/23 19:58 Consult Nephrology Routine Ordered Studies 07/07/23 09:50 US gallbladder Stat 07/08/23 13:18 US Renal Bladder [US renal/blad retro comp] Routine Gallbladder Ultrasound 07/07/23 09:50 ULTRASOUND RIGHT UPPER QUADRANT ABDOMEN CLINICAL HISTORY: Elevated hepatic transaminases. COMPARISON STUDY: No priors. TECHNIQUE: Real-time, grayscale, and color flow sonography of the right upper quadrant of the abdomen was performed. Images are reviewed in the transverse and longitudinal planes. FINDINGS: Liver: The liver is enlarged and demonstrates heterogeneous increased echotexture indicating steatosis. There is no intrahepatic biliary ductal dilatation. The main portal vein is patent. Gallbladder: The gallbladder is contracted and no dilated. The wall appears thickened. No shadowing gallstones are clearly identified. There is no pericholecystic fluid. A sonographic Carter's sign is reportedly absent. The common bile duct measures up to 0.7 cm in diameter. Pancreas: Visualized portions of the pancreatic head and body are normal in appearance. Right kidney: The right kidney is not identified and reported surgically absent. Ascites: None. Pleural spaces: Trace right pleural effusion is noted. IMPRESSION: 1. Hepatomegaly with hepatic steatosis. 2. The gallbladder is contracted and the wall appears thickened. This is nonspecific and not well evaluated. Correlate clinically. 3. No shadowing gallstones are identified and there is no convincing sonographic evidence of acute cholecystitis. 4. Right pleural effusion. ACT 112: Negative or not required by law. Electronically signed by: Vladimir Yen M.D. 07/07/2023 11:11 AM Renal Ultrasound 07/08/23 13:18 RENAL ULTRASOUND HISTORY: History of right nephrectomy. MARILEE/CKD COMPARISON: Abdominal ultrasound 07/07/2023. FINDINGS: Right kidney: Surgically absent. No masses or fluid collections within the nephrectomy bed. Left kidney: 14.6 cm. A few cysts with the largest in the upper pole measuring 4.5 cm. No hydronephrosis. Normal corticomedullary differentiation and cortical thickness. Bladder: No bladder wall thickening. The left ureteral jet was identified. IMPRESSION: 1. Prior right nephrectomy. 2. Left renal cysts. 3. No left-sided hydronephrosis. ACT 112: Negative or not required by law. Electronically signed by: David Moffett M.D. 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 Grijalva his oncologist consulted -treated for immunotherapy-induced hepatitis with IV solumedrol, transitioned to oral prednisone at 1 mg/kg, LFTs significantly improved -cont prednisone 160 mg/d with slow taper over 1-2 mo -discussed with Dr. Grijalva - given high starting dose due to weight will taper by 10 mg every three days. He has office appt with her and she will get weekly labs -malaise improved and anorexia resolved -2 weeks of prednisone for taper prescribed at discharge - he has follow up with Dr. Grijalva who can modify/fill rest of taper based on clinical progress counseled prednisone at this dose/duration should not be discontinued abruptly (2) Acute kidney injury superimposed on CKD: MARILEE on CKD-4, non-oliguric -Cr noted to be 6.11 with BUN of 105 on outpatient CMP prior to ED arrival -Baseline Cr is ~3.5, per last Nephrology clinic note on 05/20/23 -may be prerenal injury, there is a possibility of immunotherapy-induced MARILEE -appreciate nephrology consultation reviewed recs by Dr. Timmons -renal US 07/07 reviewed - R nephrectomy, L kidney with cysts, no hydronephrosis -lokelma given at admission, 07/07. Potassium normal range last few days -improvement in Cr 6.27-->4.62 with good UOP -discussed with Dr. Timmons - ok for discharge, he will have weekly labs and made office appt for 07/21 -diuretics, losartan and empaglifozin held - continue holding on discharge Counseled to call sales representative sales manager if severe edema, cough, dyspnea - lasix would need to be restarted. Lungs clear at this time with 2+ edema stable over last three days. Weight down since admission. (3) High anion gap metabolic acidosis: Related to renal dysfunction Nabicarb drip given at admission discharged on oral bicarb (4) Hyperglycemia: Steroid induced hyperglycemia -Patient's last Hgb A1c on 06/26/23 was 6.3 -Was started on Jardiance for his CHF and CKD -Hold Jardiance for now -controlled with basal-bolus insulin in hospital -nurse educator and pharmacist consulted -discussed with nurse educator - recommends NPH for outpatient steroid- induced hyperglycemia. pharmacist provided him with an NPH insulin scale based on his prednisone taper dosing (5) Generalized weakness: related to dehydration, MARILEE, hepatitis, and current renal cell carcinoma on immunotherapy -improved (6) Hypothyroidism: -Continue levothyroxine. TSH 8. Dose was just increased to 200 mcg as outpatient several days ago -follow up in primary care for TSH monitoring (7) Renal cell carcinoma: -Oncology consulted -Last dose of immunotherapy was on 06/16/23, was supposed to have 4th cycle 07/06 -Continue to follow with Oncology on discharge (8) Hypertension: -Holding lasix losartan and Jardiance with MARILEE and dehydration -continue metoprolol for now -BP acceptable (9) Heart failure with preserved ejection fraction: -Hold lasix and Jardiance -Continue metoprolol -monitor volume status, has more edema, may need to resume lasix soon as outpatient (10) SARAH (obstructive sleep apnea): -HS CPAP ordered Plan Chronic atrial fibrillation -continue metoprolol and apixaban -rated were elevated in hospital due to inflammatory condition but have been improving steadily Total Time Total Time Spent Total Time Spent (In Minutes): I personally spent: 65 minutes today on clinical care activities including: reviewing chart notes and vital signs reviewing labs discussion with bedside RN, inpatient and retail pharmacists - confirmed supplies/meds available today examining and counseling the patient writing prescriptions, DC instructions documentation Discharge Plan Discharge Items Patient Disposition: Home - Self-Care Reason For Visit: ELEVATED LFT'S, MARILEE Discharge Diagnosis: hepatitis related to immunotherapy, acute kidney injury on CKD-4 Activity: Resume your previous activity Non-emergency contact: Primary Care Provider, Mobile Home Set Up Person and Oncologist Call non-emergency contact if: you have any medication questions and your symptoms worsen Follow-up/Referrals: Alfredo Timmons DO [Physician] - 07/22/23 2:20 pm ([place]) Veronica Tucker MD [Primary Care Provider] - Diet: Carb Consistent or DM2 and Low Sodium (2gm) Addtl Attending Provider Instructions: Take prednisone as directed - the plan at this time is to decrease the dose by 10 mg every three days. You started this in the hospital so the dose will decrease to 150 mg on 07/13. Follow the scale provided by the pharmacist for dosing of NPH insulin in the morning - this tells you a recommended dose of insulin based on the prednisone dose Dr. Grijalva may change the prednisone taper depending on how you are doing, but you can still use the insulin scale based on the dose I ordered two weeks of the taper, but Dr. Grijalva will have to give you a new prescription to continue tapering dose after that. Its very important not to stop prednisone abruptly, high doses need to be tapered to a low dose before stopping. Call Dr. Timmons's office about restarting your furosemide if you develop worsening leg edema or trouble breathing, cough Meds HELD: furosemide (lasix), empaglifozin (jardiance), losartan Use the NPH syringes provided by the hospital nurse for Friday AM and Friday AM. Your pharmacy will have the NPH pen available on Friday Follow up with Dr. Grijalva as scheduled Pending Studies at Discharge: No Stand-Alone Forms: My Acucela, Smoking Cessation Medications and DC Order Prescriptions: New Novolin N FlexPen 100 unit/mL (3 mL) insulin pen See Rx Instructions .ROUTE .COMPLEX Qty: 6 0RF Rx Instructions: Follow scale for number of units to inject based on your prednisone dose, subcutaneously, daily in AM (DME) pen needle, diabetic, safety 31 gauge x 5/32" needle See Rx Instructions .Route Qty: 100 0RF Rx Instructions: to inject insulin 1x a day (DME) OneTouch Verio test strips Strip See Rx Instructions .Route Qty: 100 1RF Rx Instructions: check blood sugar 3x a day (DME) lancets [OneTouch Delica Plus Lancet] 33 gauge misc See Rx Instructions .Route Qty: 100 1RF Rx Instructions: to check blood sugar 3x a day sodium bicarbonate 650 mg Tablet 1,300 mg PO BID Qty: 120 0RF prednisone 50 mg tablet 100 mg PO DAILY 14 Days Qty: 28 0RF Rx Instructions: use with 10 mg tabs for taper prednisone 10 mg tablet See Taper PO DAILY Qty: 49 0RF Taper: Taper, Blank 160 mg DAILY for 1 Day 150 mg DAILY for 3 Days 140 mg DAILY for 3 Days 130 mg DAILY for 3 Days 120 mg DAILY for 3 Days 110 mg DAILY for 1 Day Rx Instructions: use with 50 mg tablet to follow taper. further taper after [address] Grijalva Continued glucosamine sulfate 1,000 mg tablet 2,000 mg PO BID Rx Instructions: administer with meals apixaban 5 mg tablet 5 mg PO BID Qty: 60 metoprolol tartrate 25 mg tablet 25 mg PO BID Qty: 180 multivitamin tablet 1 tab PO DAILY tadalafil 20 mg tablet 20 mg PO .COMPLEX PRN (Reason: Other) Patient Comments: 20 mg PO PRN Rx Instructions: 20 mg PO PRN cholecalciferol (vitamin D3) 50 mcg (2,000 unit) tablet 2,000 unit PO DAILY Qty: 30 levothyroxine 150 mcg tablet 200 mcg PO DAILY Qty: 30 amoxicillin 500 mg capsule 2,000 mg PO UD PRN (Reason: dental tripp. ) betamethasone, augmented 0.05 % cream 1 applic TOPICAL BID PRN (Reason: Other) Held losartan 100 mg tablet 100 mg PO DAILY Qty: 90 3RF Hold Instructions: Resume on 08/09/23. until resumed by Dr. Timmons empagliflozin 10 mg tablet 10 mg PO DAILY Qty: 90 3RF Hold Instructions: Resume on 08/09/23. until resumed by Dr. Timmons furosemide 40 mg tablet 40 mg PO .COMPLEX Hold Instructions: Resume on 08/09/23. until resumed by Dr. Timmons Patient Comments: 40 mg PO take 2 tablets every Fri. fri. and take 1 tablet every other day Rx Instructions: 40 mg PO take 2 tablets every fri. fri. and take 1 tablet every other day rosuvastatin [Crestor] 20 mg tablet 10 mg PO DAILY Hold Instructions: Resume on 08/09/23. until resumed by Dr. Grijalva (because of liver inflammation) Discharge Orders: Discharge Order (Routine); Ordered 07/12/23 Ordered By: Lakia Fajardo/Other Patient Handouts: Cholesterol, Coping with Kidney Failure, Understanding Fat and Cholesterol Admission Data Admit Date/Time: 07/07/23 10:36 Attending Provider: Lakia Castellanos Admit Provider: Glen Yeboah Primary Care Provider: Veronica Tucker Other Providers: Glen Yeboah; Carlos Collins; Alfredo Timmons Other Interventions: Discharge Summary Assessment (RN) Last Done: 07/12/23 14:28 Coding Level of Care Code 74126 INP/OBS DISCH >30 MIN Diagnoses Elevated LFTs R79.89 Acute kidney injury superimposed on CKD N17.9; N18.9 High anion gap metabolic acidosis E87.29 Hyperglycemia R73.9 Generalized weakness R53.1 Hypothyroidism E03.9 Renal cell carcinoma C64.9 Hypertension I10 Heart failure with preserved ejection fraction I50.30 SARAH (obstructive sleep apnea) G47.33
== END 2023-07-12 14:55 | disposition home or self-care (01) | DRG 442 ==
LOC: ED 09:30 → SUATTDRO 10:36 → EDINP 10:36 → 2S 10:55

== ENCOUNTER 2023-09-16 20:30 | Inpatient (IN) ==
[2023-09-16 21:09] LABS: Basophils # (auto) 0.03 K/uL (0.00-0.20); Basophils % (auto) 0.3 %; Eosinophils # (auto) 0.01 K/uL (0.00-0.50); Eosinophils % (auto) 0.1 %; Hematocrit (blood only) 24.1 % (42.0-52.0); Hemoglobin 7.4 g/dl (14.0-18.0); Immature Granulocytes # (auto) 0.26 K/uL (0.01-0.20); Immature Granulocytes % (auto) 2.5 %; Lymphocytes # (auto) 0.85 K/uL (1.20-3.40); Lymphocytes % (auto) 8.2 %; Mean Corpuscular Hemoglobin 29.4 pg (25.0-34.0); Mean Corpuscular Hgb Conc 30.7 g/dL (32.0-36.0); Mean Corpuscular Volume 95.6 fL (80.0-100.0); Mean Platelet Volume 10.3 fL (9.4-12.4); Monocytes # (auto) 0.62 K/uL (0.11-0.59); Neutrophils # (auto) 8.57 K/uL (1.40-6.50); Neutrophils % (auto) 82.9 %; Nucleated RBC # (auto) 0.07 K/uL (0.00-0.12); Nucleated RBC % (auto) 0.7 %; Platelet Count 210 K/uL (130-400); RDW Coefficient of Variation 19.1 % (11.5-14.5); RDW Standard Deviation 65.4 fL (36.4-46.3); Red Blood Count 2.52 M/uL (4.70-6.10); White Blood Count 10.34 K/ul (4.8-10.8)
[2023-09-16 21:24] LABS: Alanine Aminotransferase 32 U/L (7-52); Albumin Globulin Ratio 1.3 (0.9-2); Albumin Level 3.1 gm/dl (3.4-5.0); Alkaline Phosphatase 81 U/L (34-104); Anion Gap 7 (3-11); Aspartate Aminotransferase 34 U/L (13-39); BUN Creatinine Ratio 21.2 (10-20); Bilirubin,Total 0.5 mg/dl (0.2-1.0); Blood Urea Nitrogen 85 mg/dl (6-23); Calcium 10.4 mg/dl (8.6-10.3); Carbon Dioxide 24 mmol/L (21-32); Chloride 106 mmol/L (98-107); Est GFR (African American) 16.4 ml/min; Est GFR (Non-African American) 14.2 ml/min; Globulin 2.3 gm/dl (2.5-4.0); Glucose 157 mg/dl (70-99(Fasting)); Magnesium 2.3 mg/dl (1.7-2.4); Potassium 4.5 mmol/L (3.5-5.1); Sodium 137 mmol/L (136-145); Total Protein 5.4 gm/dl (6.0-8.3)
--- NOTE | 2023-09-16 21:30 | Emergency Department Note ---
Impression & Plan Weakness, Anemia, Acute GI bleeding, Coagulopathy, Atrial fibrillation ED Provider Note NAME: JACOB WANG AGE: 68 SEX: M : 1955 ARRIVES VIA: Walk-In INFORMANT: [Patient][family] ED PROVIDER(S): [Vladimir Wilson MD] CHIEF COMPLAINT: Referred HISTORY OF PRESENT ILLNESS: The patient is a 68-year-old male who is on immunotherapy. He had lab work done recently and was told that his count was low, his hemoglobin was low. He was sent to the hospital for transfusion and hospitalization. The patient states he has noticed some black and tarry stools for the last 2 days. He has been tired for 5 days. He has noticed shortness of breath with exertion. There is no abdominal pain, no chest pain. The patient has never been diagnosed with previous GI bleeding. He does take Eliquis for A-fib. He took his Eliquis this evening before coming to the hospital. PMHx/PSHx/Social Hx: See Below PHYSICAL EXAM: GENERAL: Patient is in no acute distress. HEENT: No acute trauma, normocephalic atraumatic, mucous membranes moist, no nasal congestion. NECK: No stridor, no adenopathy, no meningismus, trachea is midline. LUNGS: Clear to auscultation bilaterally, no wheeze, no rhonchi, breath sounds equal. HEART: Mildly tachycardic with a slightly irregular rhythm. No murmurs heard. ABDOMEN: Soft, nontender, no peritonitis. EXTREMITIES: No cyanosis, full range of motion of all the joints without pain or difficulty. Mild bilateral pedal edema. NEUROLOGIC: Oriented x 3, no acute motor or sensory deficits, no focal weakness. SKIN: No jaundice, no diaphoresis. Rectal: Black stool, heme positive. DIFFERENTIAL DIAGNOSIS: Upper GI bleeding, lower GI bleeding, dehydration, electrolyte imbalance, medication reaction, among others. EMERGENCY DEPARTMENT PROCEDURES: MEDICAL DECISION MAKING: There is no leukocytosis. The patient is anemic with a hemoglobin of 7.4. There is a normal platelet count. No coagulopathy by our testing. Creatinine was quite high at 4, this is consistent with his chronic renal failure. His BUN was higher than his recent baseline, consistent with potential upper GI bleeding. No concerning liver enzyme elevation. ECG shows atrial fibrillation, no obvious ischemia. On exam, the patient was not hypotensive, he was mildly tachycardic. Rectal exam showed black heme positive stool. Patient is on Eliquis, he had taken his evening dose. He showed signs of active GI hemorrhage by exam, his hemoglobin was low at around 7. The patient was ordered for 1 unit of blood to be transfused, the appropriate paperwork was completed and signed. Patient received IV saline hydration, he was given IV Protonix, he received IV Pepcid. The patient is in need of a hospital stay. He will need his hemoglobin trended. He may require more than just 1 unit of packed red blood cells. GI may elect to perform an endoscopy, I am concerned for upper GI bleeding. I spoke with the patient and case management, the on-call hospitalist was consulted. Prior/Outside records/notes reviewed: None ECG per my interpretation: Indication was GI bleeding. ECG shows atrial fibrillation with a rate of 110. There is some nonspecific ST change. There is no acute ST elevation. No PVCs. The QTc is 392. Continuous Cardiac Monitoring per my interpretation: An order was placed for continuous cardiac monitoring. The monitor shows a rate of 108 with atrial fibrillation. Imaging/x-ray results per my interpretation: Chronic Medical/Social conditions affecting care: Chronic anticoagulation with Eliquis. Care/Management discussed with: Case management, the on-call hospitalist. Level of care consideration(s): After review of the information above and other included data: --I believe the patient requires escalation of care to admission Critical Care Note: I have personally spent 43 minutes of critical care time in the direct management of this patient. This includes bedside care, interpretation of diagnostic studies, and testing, discussion with consultants, patient, and family members, and other required patient management activities. This 43 minutes is in excess of all separately billable procedures. DISPOSITION: Admission Past Med/Surg History Problem List (Updated 09/17/23 @ 00:35 by Vladimir Wilson MD) Atrial fibrillation (Acute) Coagulopathy (Acute) Acute GI bleeding (Acute) Anemia (Acute) Weakness (Acute) Acute blood loss anemia Immunotherapy SARAH (obstructive sleep apnea) High anion gap metabolic acidosis Acute kidney injury superimposed on CKD (Acute) Elevated LFTs (Acute) Hyperglycemia Heart failure with preserved ejection fraction Hypothyroidism (Acute) Hypercholesterolemia (Acute) Medical History Renal cell carcinoma CKD (chronic kidney disease) stage 4, GFR 15-29 ml/min Hypertension Surgical History S/p nephrectomy Family History Mother Cancer mother - bowel Social History Smoking Status: Never smoker Hx Alcohol Use: No Hx Substance Use: No Preferred Language: [place]al[place] Communication Ability: Effective 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 Developer 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 Required: No Beliefs That Will Affect Care: None Current Living Situation: Spouse current occupational status: employed Feels Safe at Home: Yes Assistive Devices: None Allergies Allergies Allergy/AdvReac Type Severity Reaction Status Date / Time No Known Allergies Allergy Verified 09/16/23 21:52 Home Meds Home Medications Medication Instructions Recorded Confirmed apixaban 5 mg tablet 5 mg PO BID #60 tabs 11/11/18 09/16/23 furosemide 40 mg tablet See Rx Instructions .Route .COMPLEX 11/11/18 09/16/23 metoprolol tartrate 25 mg tablet 25 mg PO BID #180 tabs 11/11/18 09/16/23 multivitamin 1 tab PO DAILY 11/11/18 09/16/23 cholecalciferol (vitamin D3) 50 2,000 unit PO DAILY #30 tabs 10/15/22 09/16/23 mcg (2,000 unit) tablet amoxicillin 500 mg capsule 2,000 mg PO DIRECTED PRN 1 HR 07/07/23 09/16/23 PRIOR TO DENTAL APPT. betamethasone, augmented 0.05 % 1 applic topical BID PRN Skin 07/07/23 09/16/23 topical cream Irritation levothyroxine 200 mcg tablet 200 mcg PO QAM 08/21/23 09/16/23 pantoprazole 40 mg tablet,delayed 40 mg PO DAILY 09/16/23 09/16/23 release Previous Rx's Medication Instructions Recorded blood sugar diagnostic (OneTouch #100 ea 07/11/23 Verio test strips) lancets 33 gauge (OneTouch Delica #100 ea 07/11/23 Plus Lancet) pen needle, diabetic, safety 31 #100 ea 07/11/23 gauge x 5/32" prednisone 10 mg tablet See Taper PO DAILY #49 tabs 07/12/23 Results & Data (ED) Vital Signs Vital Signs - 24 hr 09/16/23 20:33 09/16/23 21:00 09/16/23 21:06 Temperature 36.6 C Temperature Source Temporal Artery Scan Pulse Rate 108 H 111 H Pulse Rate [Finger] Pulse Rhythm [Finger] Respiratory Rate Respiratory Effort / Characteristics Respiratory Depth Respiratory Pattern Blood Pressure 144/92 H 124/93 Blood Pressure [Right Arm] Blood Pressure Mean 109 94 Blood Pressure Mean [Right Arm] Pulse Oximetry 97 Oxygen Delivery Method Room Air Sepsis Recent Fever Within 48 Hours No Sepsis New/Unexplained Change in Mental Status No Sepsis Action Taken by Nursing No Action Required 09/16/23 22:00 09/16/23 22:00 Temperature Temperature Source Pulse Rate 92 H Pulse Rate [Finger] 65 Pulse Rhythm [Finger] Regular Respiratory Rate 18 22 Respiratory Effort / Characteristics Non-Labored Spontaneous Respiratory Depth Normal Respiratory Pattern Regular Blood Pressure 114/84 Blood Pressure [Right Arm] 143/75 H Blood Pressure Mean 92 Blood Pressure Mean [Right Arm] 97 Pulse Oximetry 96 Oxygen Delivery Method Room Air Sepsis Recent Fever Within 48 Hours Sepsis New/Unexplained Change in Mental Status Sepsis Action Taken by [facility] Medications Current Medication List: was personally reviewed by me Laboratory Data Attestation: I reviewed the patient's lab results. 09/16/23 20:50 09/16/23 20:50 Lab Results 09/16/23 Range/Units 20:50 WBC 10.34 (4.8-10.8) K/ul RBC 2.52 L (4.70-6.10) M/uL Hgb 7.4 L (14.0-18.0) g/dl Hct 24.1 L (42.0-52.0) % MCV 95.6 (80.0-100.0) fL MCH 29.4 (25.0-34.0) pg MCHC 30.7 L (32.0-36.0) g/dL RDW Std Deviation 65.4 H (36.4-46.3) fL RDW Coeff of Nick 19.1 H (11.5-14.5) % Plt Count 210 (130-400) K/uL MPV 10.3 (9.4-12.4) fL Immature Gran % (Auto) 2.5 % Neut % (Auto) 82.9 % Lymph % (Auto) 8.2 % [place] % (Auto) 6.0 % Eos % (Auto) 0.1 % Baso % (Auto) 0.3 % Neut # (Auto) 8.57 H (1.40-6.50) K/uL Lymph # (Auto) 0.85 L (1.20-3.40) K/uL [place] # (Auto) 0.62 H (0.11-0.59) K/uL Eos # (Auto) 0.01 (0.00-0.50) K/uL Baso # (Auto) 0.03 (0.00-0.20) K/uL Immature Gran # (Auto) 0.26 H (0.01-0.20) K/uL Absolute Nucleated RBC 0.07 (0.00-0.12) K/uL Nucleated RBC % (auto) 0.7 % Anisocytosis Present Ovalocytes 1+ PT 11.5 (9.0-12.0) Seconds INR 1.1 (0.9-1.1) APTT 28 (21-31) Seconds PTT Ratio 1.0 Sodium 137 (136-145) mmol/L Potassium 4.5 (3.5-5.1) mmol/L Chloride 106 (98-107) mmol/L Carbon Dioxide 24 (21-32) mmol/L Anion Gap 7 (3-11) BUN 85 H (6-23) mg/dl Creatinine 4.01 H (0.6-1.4) mg/dl Est Cr Clr Drug Dosing Not Reportable Est GFR ( Amer) 16.4 ml/min Est GFR (Non-Af Amer) 14.2 ml/min BUN/Creatinine Ratio 21.2 H (10-20) Glucose 157 H (70-99(Fasting)) mg/dl Calcium 10.4 H (8.6-10.3) mg/dl Magnesium 2.3 (1.7-2.4) mg/dl Total Bilirubin 0.5 (0.2-1.0) mg/dl AST 34 (13-39) U/L ALT 32 (7-52) U/L Alkaline Phosphatase 81 (34-104) U/L Total Protein 5.4 L (6.0-8.3) gm/dl Albumin 3.1 L (3.4-5.0) gm/dl Globulin 2.3 L (2.5-4.0) gm/dl Albumin/Globulin Ratio 1.3 (0.9-2) Blood Type O Positive Antibody Screen NEGATIVE Crossmatch See Detail Administered Medications Discontinued Medications Pantoprazole Sodium 80 mg/ (Dextrose) 120 mls @ 400 mls/hr IV NOW ONE Stop: 09/16/23 21:35 Last Infusion: 09/16/23 22:20 Dose: Infused Documented By: Admin: 09/16/23 21:44 Dose: 400 mls/hr Documented By: XAVI Famotidine (Pepcid 20mg Iv Push) 20 mg in 5 mls @ 2.5 mls/min IV NOW STA Stop: 09/16/23 21:19 Last Admin: 09/16/23 21:44 Dose: 2.5 mls/min Documented By: XAVI Sodium Chloride (Nss) 500 mls @ 999 mls/hr IV .Q31M ONE Stop: 09/16/23 21:48 Last Infusion: 09/16/23 22:20 Dose: Infused Documented By: Admin: 09/16/23 21:44 Dose: 999 mls/hr Documented By: XAVI Discharge Plan Visit Data Chief Complaint: Referred by Doctor Stated Complaint: BLOOD IRON LOW, CANCER PATIENT ED Provider: Vladimir Wilson Discharge Problem: Weakness, Anemia, Acute GI bleeding, Coagulopathy, Atrial fibrillation Patient Disposition: Admitted As Inpatient Condition: Fair Discharge Instructions Interventions: ED Discharge Assessment Last Done: 09/16/23 23:34 Discharge Problem: Anemia Qualifiers: Anemia type: unspecified type Qualified Code(s): D64.9 - Anemia, unspecified Atrial fibrillation Qualifiers: Atrial fibrillation type: unspecified Qualified Code(s): I48.91 - Unspecified atrial fibrillation
[2023-09-16] MEDS: FAMOTIDINE 20MG IV PUSH 20 MG/5 ML SYR IV STA (21:44)
[2023-09-16] MEDS: SODIUM CHLORIDE 0.9% 500 ML IV ONE (21:44)
[2023-09-16] MEDS: PANTOprazole 80 MG in DEXTROSE 5% 100 ML IV ONE (21:44)
[2023-09-16 21:49] LABS: Anisocytosis Present; Ovalocytes 1+
[2023-09-16 22:05] LABS: INR 1.1 (0.9-1.1); Partial Thromboplastin Time 28 Seconds (21-31); Prothrombin Time 11.5 Seconds (9.0-12.0)
[2023-09-16] MEDS ORDERED: SODIUM CHLORIDE 0.9% 250 ML IV PRN (22:07)
--- NOTE | 2023-09-16 22:13 | History & Physical Report ---
Date of Service September 16, 2023 Assessment & Plan (1) Acute blood loss anemia: Plan: Pt is a 68 yo male with PMH of RCC, hypothyroidism, and GERD presenting after being evaluated by nephrology who recommended he come to the ER if his symptoms got worse. Acute blood loss anemia - secondary to GI blood loss; suspect secondary to pt's recent prolonged course of steroids vs. adverse effects from immunotherapy - Hgb 7.4 upon admission and pt symptomatic - 2u pRBCs ordered in ER; recheck Hgb 1hr post transfusion - pt last eliquis dose this evening 09/15; hold moving forward - if pt's Hgb does not stabilize after transfusion, consider GI consult for inpatient scope - if pt's symptoms do not improve as expected after transfusion, may need to consider stress dosing steroids CKD - baseline Cr 3.5-4.0 - Cr 4.01 upon admission - continue to monitor Cr Afib - EKG showing afib with RVR upon admission - hold eliquis d/t active bleed - hold PO metoprolol; will add IV metoprolol 5 mg PRN for HR sustained >110 HFpEF - pt on furosemide 80mg at home MWF, 40mg all other days - will switch to IV equivalents while NPO as pt's fluid status is tenuous considering his HF and CKD Elevated trop - x2 w/o significant delta - EKG showing afib w/ RVR to 110, no signs of ischemia - suspect demand ischemia in the setting of anemia, CKD RCC - follows with Dr. Timmons and Dr. Grijalva - last tx 09/08 SARAH - CPAP ordered Diet: NPO DVT ppx: deferred in the setting of active bleed; pt will need to be an ticoagulated as early as possible as he is high risk d/t afib and active cancer Code: full Dispo: admit to PCU/tele (2) SARAH (obstructive sleep apnea): (3) Renal cell carcinoma: (4) CKD (chronic kidney disease) stage 4, GFR 15-29 ml/min: (5) Hypertension: (6) Heart failure with preserved ejection fraction: History of Present Illness Chief Complaint: sent by doctor for blood transfusion Primary Care Provider: Veronica Tucker MD Pt is a 68 yo male with PMH of RCC, hypothyroidism, and GERD presenting after being evaluated by nephrology who recommended he come to the ER if his symptoms got worse. Pt notes he had his most recent immunotherapy tx Friday 09/08. On Friday, he started feeling very fatigued when walking short distances. His at that time also noted dark black, tarry stools. He denies abdominal pain, N/V, and BRBPR. He was told to present to the hospital for concern of needing a blood transfusion. In the ER, pt was given 80mg pantoprazole IV, famotidine 20 mg IV, and 500cc NS. He was also ordered 2u of pRBCs. Allergies Allergy/AdvReac Type Severity Reaction Status Date / Time No Known Allergies Allergy Verified 09/16/23 21:52 Home Medications Medication Instructions Recorded Confirmed Type apixaban 5 mg tablet 5 mg PO BID #60 tabs 11/11/18 09/16/23 History furosemide 40 mg tablet See Rx Instructions .Route .COMPLEX 11/11/18 09/16/23 History metoprolol tartrate 25 mg tablet 25 mg PO BID #180 tabs 11/11/18 09/16/23 History multivitamin 1 tab PO DAILY 11/11/18 09/16/23 History cholecalciferol (vitamin D3) 50 2,000 unit PO DAILY #30 tabs 10/15/22 09/16/23 History mcg (2,000 unit) tablet amoxicillin 500 mg capsule 2,000 mg PO DIRECTED PRN 1 HR 07/07/23 09/16/23 History PRIOR TO DENTAL APPT. betamethasone, augmented 0.05 % 1 applic topical BID PRN Skin 07/07/23 09/16/23 History topical cream Irritation blood sugar diagnostic (OneTouch #100 ea 07/11/23 09/16/23 Rx Verio test strips) lancets 33 gauge (OneTouch Delica #100 ea 07/11/23 09/16/23 Rx Plus Lancet) pen needle, diabetic, safety 31 #100 ea 07/11/23 09/16/23 Rx gauge x 5/32" prednisone 10 mg tablet See Taper PO DAILY #49 tabs 07/12/23 09/16/23 Rx levothyroxine 200 mcg tablet 200 mcg PO QAM 08/21/23 09/16/23 History pantoprazole 40 mg tablet,delayed 40 mg PO DAILY 09/16/23 09/16/23 History release Past Med/Surg History Problem List (Updated 09/17/23 @ 16:06 by Jhon Diego MD) Chronic diastolic CHF (congestive heart failure) Chronic kidney disease, stage IV (severe) Atrial fibrillation (Acute) Coagulopathy (Acute) Acute GI bleeding (Acute) Anemia (Acute) Weakness (Acute) Acute blood loss anemia Immunotherapy SARAH (obstructive sleep apnea) High anion gap metabolic acidosis Acute kidney injury superimposed on CKD (Acute) Elevated LFTs (Acute) Hyperglycemia Heart failure with preserved ejection fraction Hypothyroidism (Acute) Hypercholesterolemia (Acute) Medical History Renal cell carcinoma CKD (chronic kidney disease) stage 4, GFR 15-29 ml/min Hypertension Surgical History S/p nephrectomy Family History Mother Cancer mother - bowel Social History Smoking Status: Never smoker Hx Alcohol Use: No Hx Substance Use: No Preferred Language: Liberian Communication Ability: Effective Sample Display Preparer Required: No Beliefs That Will Affect Care: None Current Living Situation: Spouse current occupational status: employed Feels Safe at Home: Yes Safety Concerns: Feels Safe At This Time Assistive Devices: CPAP Review of Systems Review of Systems: As per HPI Physical Exam Constitutional: NAD, vitals WNL. Eyes: Conjunctivae normal. Respiratory: CTA bilaterally. Non labored breathing. No rhonchi, wheezing, or crackles. Cardiovascular: RRR. No murmurs noted. 3+ bilateral pitting LE edema. Gastrointestinal (Abdomen): Nontender, +BS. No masses noted. Skin: Various bruises noted throughout bilateral UE. Neurologic: Sensation grossly intact. No FND appreciated. Psychiatric: Speech of normal pace and content. Mood and affect congruent. Results & Data Results & Data Vital Signs (Past 12 Hours) Vital Signs Temp Pulse Pulse Resp BP BP Pulse Ox 09/16/23 22:00 65 18 143/75 H 96 09/16/23 21:06 111 H 09/16/23 20:33 36.6 C 108 H 144/92 H 97 O2 Del Method 09/16/23 22:00 Room Air 09/16/23 21:06 09/16/23 20:33 Room Air Supervising Physician Co-Signing Physician Notes Attending addendum: I have physically seen this patient, have supervised the medical residents activities, and agree with the H&P unless as otherwise noted. Assessment and Plan: Acute blood loss anemia/GI bleed The patient will be admitted to telemetry for serial cardiac enzymes, serial EKG's, cardiac rhythm monitoring Hemoglobin 7.4 on admission, with most recent at 11.4 To receive 2 units PRBCs as ordered in the ER Consult gastroenterology Hold Eliquis Pantoprazole 80 mg IV and 20 mg IV given by the ED continue pantoprazole 40 mg IV twice daily, Atrial fibrillation/HFpEF- Holding Eliquis due to active GI bleed as noted Holding p.o. metoprolol Lopressor 5 mg IV as needed for heart rate greater than 110 Hold furosemide SARAH on CPAP at bedtime Resident Activity Tracking Resident Involvement: Resident Care Provided Care Provided: Adult Hospital Medicine
[2023-09-16] MEDS ORDERED: ONDANSETRON INJ 2 MG/ML 2 ML VIAL IV PRN (23:01)
[2023-09-16] MEDS ORDERED: ACETAMINOPHEN 1,000 MG/100 ML VIAL IV PRN (23:01)
[2023-09-17 05:00] LABS: Hematocrit (blood only) 24.1 % (42.0-52.0); Hemoglobin 7.5 g/dl (14.0-18.0); Mean Corpuscular Hemoglobin 29.3 pg (25.0-34.0); Mean Corpuscular Hgb Conc 31.1 g/dL (32.0-36.0); Mean Corpuscular Volume 94.1 fL (80.0-100.0); Mean Platelet Volume 10.2 fL (9.4-12.4); Nucleated RBC # (auto) 0.07 K/uL (0.00-0.12); Nucleated RBC % (auto) 0.9 %; Platelet Count 182 K/uL (130-400); RDW Coefficient of Variation 18.4 % (11.5-14.5); RDW Standard Deviation 62.6 fL (36.4-46.3); Red Blood Count 2.56 M/uL (4.70-6.10); White Blood Count 8.18 K/ul (4.8-10.8)
[2023-09-17 05:17] LABS: BUN Creatinine Ratio 20.7 (10-20); Creatinine Clr Calc Pharmacy 29.1 ml/min; Est GFR (African American) 17.2 ml/min; Est GFR (Non-African American) 14.8 ml/min; Potassium 4.3 mmol/L (3.5-5.1)
[2023-09-17] MEDS: FUROSEMIDE 40 MG/4 ML VIAL IV SCH (08:28)
--- NOTE | 2023-09-17 10:12 | Electrocardiogram Report ---
Test Reason : Blood Pressure : / mmHG Vent. Rate : 110 BPM Atrial Rate : 000 BPM P-R Int : 000 ms QRS Dur : 102 ms QT Int : 290 ms P-R-T Axes : 000 -10 -23 degrees QTc Int : 392 ms Atrial fibrillation with rapid ventricular response Abnormal ECG When compared with ECG of 07-JUL-2023 09:59, Incomplete right bundle branch block no longer present Confirmed by Satish German ([id number]) on 09/17/2023 10:12:07 AM Referred By: Alfredo Timmons Confirmed By:Satish German
[2023-09-17] MEDS: PANTOprazole 40 MG in SYRINGE 0 ML IV SCH (10:21)
[2023-09-17] MEDS ORDERED: PANTOPRAZOLE BOLUS/DRIP IV STA (11:59)
[2023-09-17] MEDS ORDERED: SODIUM CHLORIDE 0.9% 250 ML IV PRN (12:01)
--- NOTE | 2023-09-17 12:54 | Gastrointestinal Consultation ---
Date of Consultation September 17, 2023 Assessment & Plan (1) Acute GI bleedin68 year old male with history of RCC, hypothyroidism, CKD, afib, HF admitted with black stools, anemia w/ HGB of 7.4 requiring RBC tranfusion x 2 units Clear liquids today NPO after midnight Anticipate EGD AM Trend H&H Transfuse PRN per primary service Monitor and document GI output IV PPI bolus and drip Hold Eliquis We appreciate assistance in the management of any serological abnormality and corrections to include: hemoglobin >7, INR <2, platelets >50,000, potassium levels >3.5 but <5.3, and sodium levels within 5 points of the reference range prior to endoscopic evaluation. Thank you for allowing us to participate in the care of this patient. Please call with any acute changes, questions or concerns. Please see addendum below with additional recommendation from my supervising physician. I spent a total of 60 minutes on the date of service in review of patient's record, and previously obtained information in person and appropriate medical visit, discussion and education of plan, with patient and/or caregiver, placing orders for tests/referral/procedures as medically necessary and documentation of pertinent clinical information in patient's medical records for their visit today. Supervising Physician Co-Signing Physician Notes I examined the patient and reviewed patient's chart , laboratory data and imaging studies. I agree with with assessment and plan of care as suggested by advanced practice provider. Melena, anemia. Eliquis on hold. For EGD tomorrow. History of Present Illness Reason for Consultation: anemia, black stool Requesting Physician: Brandie Attending Physician: Jhon Diego MD History of Present Illness 68 year old male with history of RCC, hypothyroidism, CKD, afib, HF and others below admitted through the ED w/ abnormal labs, anemia. GI was asked to evaluate. Pt was seen and evaluated, chart reviewed. Family at bedside. Notes that he had a few episodes of dark, tarry stools on Friday and Friday. Was getting OP blood work done which showed he was anemia and recommendation to come to ED for transfusion. He notes his stools are still dark. however, starting to become brown. He notes he was told his stoosl were heme positive when tested this AM. HGB 11.4 --> 7.4 --> 2 units RBC He is on Eliquis Recent prolonged course of PO steroids Has never had an EGD Last colonoscopy was 3 years ago in [facility]. Was told to follow up in 5 years Allergies Allergy/AdvReac Type Severity Reaction Status Date / Time No Known Allergies Allergy Verified 09/16/23 21:52 Home Medications Medication Instructions Recorded Confirmed Type apixaban 5 mg tablet 5 mg PO BID #60 tabs 11/11/18 09/16/23 History furosemide 40 mg tablet See Rx Instructions .Route .COMPLEX 11/11/18 09/16/23 History metoprolol tartrate 25 mg tablet 25 mg PO BID #180 tabs 11/11/18 09/16/23 History multivitamin 1 tab PO DAILY 11/11/18 09/16/23 History cholecalciferol (vitamin D3) 50 2,000 unit PO DAILY #30 tabs 10/15/22 09/16/23 History mcg (2,000 unit) tablet amoxicillin 500 mg capsule 2,000 mg PO DIRECTED PRN 1 HR 07/07/23 09/16/23 History PRIOR TO DENTAL APPT. betamethasone, augmented 0.05 % 1 applic topical BID PRN Skin 07/07/23 09/16/23 History topical cream Irritation blood sugar diagnostic (OneTouch #100 ea 07/11/23 09/16/23 Rx Verio test strips) lancets 33 gauge (OneTouch Delica #100 ea 07/11/23 09/16/23 Rx Plus Lancet) pen needle, diabetic, safety 31 #100 ea 07/11/23 09/16/23 Rx gauge x 5/32" prednisone 10 mg tablet See Taper PO DAILY #49 tabs 07/12/23 09/16/23 Rx levothyroxine 200 mcg tablet 200 mcg PO QAM 08/21/23 09/16/23 History pantoprazole 40 mg tablet,delayed 40 mg PO DAILY 09/16/23 09/16/23 History release Patient History Medical History Renal cell carcinoma CKD (chronic kidney disease) stage 4, GFR 15-29 ml/min Hypertension Surgical History S/p nephrectomy Family History Mother Cancer mother - bowel Social History Smoking Status: Never smoker Hx Alcohol Use: No Hx Substance Use: No Preferred Language: Urdu Communication Ability: Effective 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 Physical Exam Constitutional: WD/WN, vitals as above Respiratory: normal respiratory effort Cardiovascular: Rate/Rhythm: regular rate Gastrointestinal (Abdomen): normal bowel sounds, soft, nontender, no hepatosplenomegaly Skin: no rashes, warm and dry Results & Data Vital Signs (Past 12 Hours) Vital Signs Temp Pulse Pulse Resp BP BP Pulse Ox 09/17/23 12:30 36.5 C 107 H 16 138/98 96 09/17/23 12:14 36.5 C 111 H 19 147/96 H 97 09/17/23 09:20 09/17/23 08:25 104 H 18 141/86 H 97 09/17/23 07:09 92 H 09/17/23 06:00 92 H 24 162/94 H 95 09/17/23 05:30 114 H 21 169/108 H 96 09/17/23 01:25 36.8 C 94 H 16 142/101 H 98 09/17/23 01:12 O2 Del Method 09/17/23 12:30 09/17/23 12:14 09/17/23 09:20 Room Air 09/17/23 08:25 Room Air 09/17/23 07:09 09/17/23 06:00 09/17/23 05:30 09/17/23 01:25 09/17/23 01:12 Room Air Laboratory Results 09/17/23 09/16/23 Range/Units 04:44 20:50 WBC 8.18 10.34 (4.8-10.8) K/ul RBC 2.56 L 2.52 L (4.70-6.10) M/uL Hgb 7.5 L 7.4 L (14.0-18.0) g/dl Hct 24.1 L 24.1 L (42.0-52.0) % MCV 94.1 95.6 (80.0-100.0) fL MCH 29.3 29.4 (25.0-34.0) pg MCHC 31.1 L 30.7 L (32.0-36.0) g/dL RDW Std Deviation 62.6 H 65.4 H (36.4-46.3) fL RDW Coeff of Nick 18.4 H 19.1 H (11.5-14.5) % Plt Count 182 210 (130-400) K/uL MPV 10.2 10.3 (9.4-12.4) fL Immature Gran % (Auto) 2.5 % Neut % (Auto) 82.9 % Lymph % (Auto) 8.2 % [place] % (Auto) 6.0 % Eos % (Auto) 0.1 % Baso % (Auto) 0.3 % Neut # (Auto) 8.57 H (1.40-6.50) K/uL Lymph # (Auto) 0.85 L (1.20-3.40) K/uL [place] # (Auto) 0.62 H (0.11-0.59) K/uL Eos # (Auto) 0.01 (0.00-0.50) K/uL Baso # (Auto) 0.03 (0.00-0.20) K/uL Immature Gran # (Auto) 0.26 H (0.01-0.20) K/uL Absolute Nucleated RBC 0.07 0.07 (0.00-0.12) K/uL Nucleated RBC % (auto) 0.9 0.7 % Anisocytosis Present Ovalocytes 1+ PT 11.5 (9.0-12.0) Seconds INR 1.1 (0.9-1.1) APTT 28 (21-31) Seconds PTT Ratio 1.0 Sodium 139 137 (136-145) mmol/L Potassium 4.3 4.5 (3.5-5.1) mmol/L Chloride 108 H 106 (98-107) mmol/L Carbon Dioxide 25 24 (21-32) mmol/L Anion Gap 6 7 (3-11) BUN 80 H 85 H (6-23) mg/dl Creatinine 3.86 H 4.01 H (0.6-1.4) mg/dl Est Cr Clr Drug Dosing 29.1 Not Reportable Est GFR ( Amer) 17.2 16.4 ml/min Est GFR (Non-Af Amer) 14.8 14.2 ml/min BUN/Creatinine Ratio 20.7 H 21.2 H (10-20) Glucose 136 H 157 H (70-99(Fasting)) mg/dl Calcium 10.0 10.4 H (8.6-10.3) mg/dl Magnesium 2.3 (1.7-2.4) mg/dl Total Bilirubin 0.5 (0.2-1.0) mg/dl AST 34 (13-39) U/L ALT 32 (7-52) U/L Alkaline Phosphatase 81 (34-104) U/L Total Protein 5.4 L (6.0-8.3) gm/dl Albumin 3.1 L (3.4-5.0) gm/dl Globulin 2.3 L (2.5-4.0) gm/dl Albumin/Globulin Ratio 1.3 (0.9-2) Blood Type O Positive Antibody Screen NEGATIVE Crossmatch See Detail PG Care Time/CCT Total # of Minutes Spent Total Time Spent with Patient: Total time spent is greater than 50% in coordination of care (as documented) at patient's floor/unit and/or counseling patient: Coding Level of Care Code 40006 INT INP/OBS CARE 2MIN Diagnoses Acute GI bleeding K92.2
[2023-09-17] MEDS: PANTOprazole 80 MG in DEXTROSE 5% 100 ML IV ONE (13:17)
[2023-09-17] MEDS: PANTOprazole 40 MG in DEXTROSE 5% MINI-B 100 ML IV SCH (13:37)
[2023-09-17] MEDS: SODIUM CHLORIDE 0.9% 1,000 ML IV SCH (13:56)
--- NOTE | 2023-09-17 16:06 | Hospitalist Progress Note ---
Date of Service September 17, 2023 Assessment & Plan (1) Acute GI bleeding: Plan: Recent onset of melena indicating probable upper GI bleeding. He is now on a Protonix drip and IV fluids. Clear liquid diet for now. GI consultation and recommendations appreciated. He will undergo EGD tomorrow, September 17 (2) Acute blood loss anemia: Plan: Hemoglobin 7.4 on admission. 2 units packed red blood cells administered so far. Serial H&H pending. He feels better (3) Coagulopathy: Plan: Due to chronic Eliquis therapy. Eliquis is on hold. (4) Chronic kidney disease, stage IV (severe): Plan: Creatinine 4.0 on admission. Monitor intake and output. Serial labs (5) Chronic diastolic CHF (congestive heart failure): Plan: No overt CHF at this time. Monitor intake and output. Plan Hopeful discharge to home within the next day or 2 Admission and Anticipated Discharge Date Admission Date: September 16, 2023 Subjective Alert and oriented. He is feeling better after receiving 2 units of packed red blood cells. Repeat H&H is pending. He has been seen by gastroenterology. He is on clear liquid diet and EGD will be done tomorrow, September 17. He is now on a Protonix drip and IV fluids. Eliquis is on hold. Review of Systems 2 Review of Systems: Constitutional-no fever or chills ENT-no blurred vision, no double vision, no epistaxis, no sore throat Respiratory-no cough, no wheezing, no shortness of breath Cardiac-no palpitations, no chest pain, no syncope GI-no nausea, vomiting, diarrhea,hematochezia. Recent onset of melena -no urinary retention, no urinary incontinence, no dysuria, no hematuria Musculoskeletal-no joint pain, no muscle tenderness Skin-no bruising, no rashes, no pruritus Neuro-no isolated weakness, no paresthesia Psych-no depression, no anxiety Physical Exam 2 Physical Exam: General-alert and oriented x3, no fever, no chills. Morbidly obese HEENT-head atraumatic and normocephalic, pupils equal and reactive to light, extraocular muscles intact Neck-no lymphadenopathy or thyromegaly, trachea midline Chest-clear to auscultation. No rales, wheezing or rhonchi Cardiac-regular rate and rhythm, normal S1 and S2 Abdomen-normal bowel sounds, no hepatosplenomegaly Extremities-no cyanosis, clubbing, or edema Neuro-cranial nerves II through XII intact, motor and sensory function within normal limits, strength symmetrical, no focal deficits Psych-normal affect, normal mood Results & Data Results & Data Vital Signs (Past 12 Hours) Vital Signs Temp Pulse Pulse Resp BP BP Pulse Ox 09/17/23 15:06 105 H 19 139/90 09/17/23 13:15 110 H 18 126/86 96 09/17/23 12:45 36.5 C 105 H 19 133/87 97 09/17/23 12:30 36.5 C 107 H 16 138/98 96 09/17/23 12:14 36.5 C 111 H 19 147/96 H 97 09/17/23 09:20 09/17/23 08:25 104 H 18 141/86 H 97 09/17/23 07:09 92 H 09/17/23 06:00 92 H 24 162/94 H 95 09/17/23 05:30 114 H 21 169/108 H 96 O2 Del Method O2 Flow Rate 09/17/23 15:06 09/17/23 13:15 09/17/23 12:45 0 09/17/23 12:30 09/17/23 12:14 09/17/23 09:20 Room Air 09/17/23 08:25 Room Air 09/17/23 07:09 09/17/23 06:00 09/17/23 05:30 Laboratory Results 09/17/23 04:44 09/17/23 04:44 PG Care Time/CCT Total # of Minutes Spent Total Time Spent with Patient: Total time spent is greater than 50% in coordination of care (as documented) at patient's floor/unit and/or counseling patient: Coding Level of Care Code 16255 SUB INP/OBS CARE 3/50MIN Diagnoses Acute GI bleeding K92.2 Acute blood loss anemia D62 Coagulopathy D68.9 Chronic kidney disease, stage IV (severe) N18.4 Chronic diastolic CHF (congestive heart failure) I50.32
[2023-09-17 16:40] LABS: Hematocrit (blood only) 28.9 % (42.0-52.0); Hemoglobin 8.9 g/dl (14.0-18.0)
[2023-09-17 23:41] LABS: Hematocrit (blood only) 29.2 % (42.0-52.0); Hemoglobin 9.3 g/dl (14.0-18.0)
--- NOTE | 2023-09-18 03:38 | Billing Data ---
Date of Service September 18, 2023 Coding Level of Care Code 52240 INT INP/OBS CARE
[2023-09-18] MEDS: FUROSEMIDE 40 MG/4 ML VIAL IV SCH (08:51)
--- NOTE | 2023-09-18 09:35 | Gastroenterology Progress Note ---
Date of Service September 18, 2023 Assessment & Plan (1) Acute GI bleeding: Plan: 68 year old male with history of RCC, hypothyroidism, CKD, afib, HF admitted with black stools, anemia w/ HGB of 7.4 requiring RBC transfusion x 2 units w/ response to 9.3 Maintain NPO status for EGD today Trend H&H Transfuse PRN per primary service Monitor and document GI output IV PPI bolus and drip Hold Eliquis We appreciate assistance in the management of any serological abnormality and corrections to include: hemoglobin >7, INR <2, platelets >50,000, potassium levels >3.5 but <5.3, and sodium levels within 5 points of the reference range prior to endoscopic evaluation. Thank you for allowing us to participate in the care of this patient. Please call with any acute changes, questions or concerns. Please see addendum below with additional recommendation from my supervising physician. Admission and Anticipated Discharge Date Admission Date: September 16, 2023 Supervising Physician Co-Signing Physician Notes I examined the patient and reviewed patient's chart , laboratory data and imaging studies. I agree with with assessment and plan of care as suggested by advanced practice provider. Melena, anemia. Suspected upper GI bleed Scheduled for EGD today. Further recommendations after EGD. Subjective Feeling well. No further black or bloody stools. 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 Physical Exam Constitutional: WD/WN, vitals as above Respiratory: normal respiratory effort, lungs clear to auscultation Cardiovascular: Rate/Rhythm: regular rate and regular rhythm Gastrointestinal (Abdomen): normal bowel sounds, soft, nontender, no hepatosplenomegaly Skin: no rashes, warm and dry Results & Data Results & Data Vital Signs (Past 12 Hours) Vital Signs Temp Pulse Pulse Resp BP BP Pulse Ox 09/18/23 07:29 36.5 C 96 H 22 136/91 95 09/18/23 06:48 36.7 C 119 H 18 163/93 H 94 09/18/23 04:00 97 H 16 140/107 H 98 09/18/23 03:30 109 H 17 97 09/18/23 03:03 106 H 16 97 09/18/23 02:39 103 H 16 98 09/18/23 02:00 95 H 14 98 09/18/23 01:55 09/18/23 01:36 103 H 14 98 09/18/23 01:00 109 H 21 98 09/18/23 00:45 102 H 13 98 09/18/23 00:00 163/109 H 09/17/23 23:54 100 H 19 98 09/17/23 23:33 23 97 09/17/23 23:20 145 H 09/17/23 23:11 153/110 H 09/17/23 23:09 17 09/17/23 23:06 106 H 22 96 O2 Del Method 09/18/23 07:29 Room Air 09/18/23 06:48 Room Air 09/18/23 04:00 CPAP 09/18/23 03:30 09/18/23 03:03 09/18/23 02:39 09/18/23 02:00 09/18/23 01:55 Room Air 09/18/23 01:36 09/18/23 01:00 09/18/23 00:45 09/18/23 00:00 09/17/23 23:54 09/17/23 23:33 09/17/23 23:20 09/17/23 23:11 09/17/23 23:09 09/17/23 23:06 Laboratory Results 09/17/23 09/17/23 09/16/23 Range/Units 23:31 16:25 20:50 Hgb 9.3 L 8.9 L (14.0-18.0) g/dl Hct 29.2 L 28.9 L (42.0-52.0) % Blood Type O Positive Antibody Screen NEGATIVE Crossmatch See Detail PG Care Time/CCT Total # of Minutes Spent Total Time Spent with Patient: Total time spent is greater than 50% in coordination of care (as documented) at patient's floor/unit and/or counseling patient: Coding Level of Care Code None Diagnoses Acute GI bleeding K92.2
[2023-09-18 11:16] LABS: Basophils # (auto) 0.06 K/uL (0.00-0.20); Basophils % (auto) 0.8 %; Eosinophils # (auto) 0.06 K/uL (0.00-0.50); Eosinophils % (auto) 0.8 %; Hematocrit (blood only) 28.4 % (42.0-52.0); Hemoglobin 8.8 g/dl (14.0-18.0); Immature Granulocytes # (auto) 0.18 K/uL (0.01-0.20); Immature Granulocytes % (auto) 2.3 %; Lymphocytes # (auto) 0.78 K/uL (1.20-3.40); Lymphocytes % (auto) 9.9 %; Mean Corpuscular Hemoglobin 28.3 pg (25.0-34.0); Mean Corpuscular Volume 91.3 fL (80.0-100.0); Mean Platelet Volume 10.6 fL (9.4-12.4); Monocytes # (auto) 0.72 K/uL (0.11-0.59); Monocytes % (auto) 9.1 %; Neutrophils # (auto) 6.08 K/uL (1.40-6.50); Neutrophils % (auto) 77.1 %; Platelet Count 192 K/uL (130-400); RDW Coefficient of Variation 19.5 % (11.5-14.5); RDW Standard Deviation 64.2 fL (36.4-46.3); Red Blood Count 3.11 M/uL (4.70-6.10); White Blood Count 7.88 K/ul (4.8-10.8)
[2023-09-18 11:26] LABS: BUN Creatinine Ratio 17.6 (10-20); Calcium 9.8 mg/dl (8.6-10.3); Creatinine Clr Calc Pharmacy 29.6 ml/min; Est GFR (African American) 17.5 ml/min; Est GFR (Non-African American) 15.1 ml/min; Potassium 4.2 mmol/L (3.5-5.1)
--- NOTE | 2023-09-18 12:38 | Hospitalist Progress Note ---
Date of Service September 18, 2023 Assessment & Plan (1) Acute GI bleeding: Plan: Recent onset of melena indicating probable upper GI bleeding. He is now on a Protonix drip and IV fluids. Clear liquid diet for now. GI consultation and recommendations appreciated. He will undergo EGD later today, September 17 (2) Acute blood loss anemia: Plan: Hemoglobin 7.4 on admission. 2 units packed red blood cells administered . Hemoglobin improved to 9.3 now. Serial labs. He feels better (3) Coagulopathy: Plan: Due to chronic Eliquis therapy. Eliquis is on hold. (4) Chronic kidney disease, stage IV (severe): Plan: Creatinine 4.0 on admission. Now appears stable at 3.8. Monitor intake and output. Serial labs (5) Chronic diastolic CHF (congestive heart failure): Plan: No overt CHF at this time. Monitor intake and output. Plan Hopeful discharge to home tomorrow, September 18 Admission and Anticipated Discharge Date Admission Date: September 16, 2023 Subjective Alert and oriented. No distress. He states he feels much better after blood transfusion. Hemoglobin is now 9.3. Creatinine stable at 3.8 which appears to be his baseline. Eliquis remains on hold. He will undergo EGD today, September 17, per GI service Review of Systems 2 Review of Systems: Constitutional-no fever or chills ENT-no blurred vision, no double vision, no epistaxis, no sore throat Respiratory-no cough, no wheezing, no shortness of breath Cardiac-no palpitations, no chest pain, no syncope GI-no nausea, vomiting, diarrhea,hematochezia. Recent onset of melena -no urinary retention, no urinary incontinence, no dysuria, no hematuria Musculoskeletal-no joint pain, no muscle tenderness Skin-no bruising, no rashes, no pruritus Neuro-no isolated weakness, no paresthesia Psych-no depression, no anxiety Physical Exam 2 Physical Exam: General-alert and oriented x3, no fever, no chills. Morbidly obese HEENT-head atraumatic and normocephalic, pupils equal and reactive to light, extraocular muscles intact Neck-no lymphadenopathy or thyromegaly, trachea midline Chest-clear to auscultation. No rales, wheezing or rhonchi Cardiac-regular rate and rhythm, normal S1 and S2 Abdomen-normal bowel sounds, no hepatosplenomegaly Extremities-no cyanosis, clubbing, or edema Neuro-cranial nerves II through XII intact, motor and sensory function within normal limits, strength symmetrical, no focal deficits Psych-normal affect, normal mood Results & Data Results & Data Vital Signs (Past 12 Hours) Vital Signs Temp Pulse Pulse Resp BP BP Pulse Ox 09/18/23 11:19 100 H 09/18/23 10:34 36.4 C L 89 22 121/89 97 09/18/23 07:29 36.5 C 96 H 22 136/91 95 09/18/23 06:48 36.7 C 119 H 18 163/93 H 94 09/18/23 04:00 97 H 16 140/107 H 98 09/18/23 03:30 109 H 17 97 09/18/23 03:03 106 H 16 97 09/18/23 02:39 103 H 16 98 09/18/23 02:00 95 H 14 98 09/18/23 01:55 09/18/23 01:36 103 H 14 98 09/18/23 01:00 109 H 21 98 09/18/23 00:45 102 H 13 98 O2 Del Method 09/18/23 11:19 09/18/23 10:34 CPAP 09/18/23 07:29 Room Air 09/18/23 06:48 Room Air 09/18/23 04:00 CPAP 09/18/23 03:30 09/18/23 03:03 09/18/23 02:39 09/18/23 02:00 09/18/23 01:55 Room Air 09/18/23 01:36 09/18/23 01:00 09/18/23 00:45 Laboratory Results 09/18/23 10:44 09/18/23 10:44 PG Care Time/CCT Total # of Minutes Spent Total Time Spent with Patient: Total time spent is greater than 50% in coordination of care (as documented) at patient's floor/unit and/or counseling patient: Coding Level of Care Code 51794 SUB INP/OBS CARE 2/35MIN Diagnoses Acute GI bleeding K92.2 Acute blood loss anemia D62 Coagulopathy D68.9 Chronic kidney disease, stage IV (severe) N18.4 Chronic diastolic CHF (congestive heart failure) I50.32
[2023-09-18] MEDS: METOPROLOL TARTRATE 1 MG/ML VIAL IV PRN (12:39)
[2023-09-18] MEDS: SODIUM CHLORIDE 0.9% 500 ML IV SCH (14:58)
--- NOTE | 2023-09-18 14:58 | Anesthesiology Consultation ---
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 History Surgery Operation Date: 09/18/23 16:45 Proposed Procedures p Esophagogastroduodenoscopy Bird Pang MD Height/Weight Height: 6 ft 3 in Weight: 162 kg Allergies Allergy/AdvReac Type Severity Reaction Status Date / Time No Known Allergies Allergy Verified 09/16/23 21:52 Medications Home Medications Medication Instructions Recorded Confirmed Last Taken apixaban 5 mg tablet 5 mg PO BID #60 tabs 11/11/18 09/16/23 09/16/23 furosemide 40 mg tablet See Rx Instructions .Route .COMPLEX 11/11/18 09/16/23 09/16/23 metoprolol tartrate 25 mg tablet 25 mg PO BID #180 tabs 11/11/18 09/16/23 09/16/23 multivitamin 1 tab PO DAILY 11/11/18 09/16/23 09/16/23 cholecalciferol (vitamin D3) 50 2,000 unit PO DAILY #30 tabs 10/15/22 09/16/23 09/16/23 mcg (2,000 unit) tablet amoxicillin 500 mg capsule 2,000 mg PO DIRECTED PRN 1 HR 07/07/23 09/16/23 08/20/23 PRIOR TO DENTAL APPT. betamethasone, augmented 0.05 % 1 applic topical BID PRN Skin 07/07/23 09/16/23 Unknown topical cream Irritation blood sugar diagnostic (OneTouch #100 ea 07/11/23 09/16/23 Unknown Verio test strips) lancets 33 gauge (OneTouch Delica #100 ea 07/11/23 09/16/23 Unknown Plus Lancet) pen needle, diabetic, safety 31 #100 ea 07/11/23 09/16/23 Unknown gauge x 5/32" prednisone 10 mg tablet See Taper PO DAILY #49 tabs 07/12/23 09/16/23 09/16/23 levothyroxine 200 mcg tablet 200 mcg PO QAM 08/21/23 09/16/23 09/16/23 pantoprazole 40 mg tablet,delayed 40 mg PO DAILY 09/16/23 09/16/23 Unknown release Active Medications Generic Name Dose Route Start Last Admin Trade Name Freq PRN Reason Stop Dose Admin Furosemide 20 mg 09/18/23 09:00 09/18/23 08:51 Furosemide 40 Mg/4 Ml Vial IV 10/18/23 08:59 20 mg SUTUTHSA GURU Administration Furosemide 40 mg 09/17/23 09:00 09/17/23 08:28 Furosemide 40 Mg/4 Ml Vial IV 10/17/23 08:59 40 mg MOWEFR GURU Administration Sodium Chloride 1,000 mls @ 80 mls/hr 09/17/23 12:00 09/18/23 13:21 Nss IV 10/17/23 11:59 80 mls/hr .[id number] GURU Administration Pantoprazole Sodium 40 mg/ 100 mls @ 20 mls/hr 09/17/23 12:15 09/18/23 10:32 Dextrose IV 10/17/23 12:14 8 mg/hr Q5H GURU 20 mls/hr Administration 8 MG/HR Sodium Chloride 500 mls @ 15 mls/hr 09/18/23 07:30 09/18/23 14:58 Nss IV 09/19/23 07:29 15 mls/hr .Q24H GURU Administration Metoprolol Tartrate 5 mg 09/16/23 23:32 09/18/23 12:39 Metoprolol Tartrate 1 Mg/Ml Vial IV 5 mg Q5M PRN Administration Tachycardia Past Medical History Medical History Renal cell carcinoma CKD (chronic kidney disease) stage 4, GFR 15-29 ml/min Hypertension Past Family History Family History Mother Cancer mother - bowel Past Surgical History Surgical History S/p nephrectomy Social History Smoking Status: Never smoker Hx Alcohol Use: No Hx Substance Use: No Physical Exam Vital Signs Last Vital Signs Temp 97.3 F L 09/18/23 14:52 Pulse 107 H 09/18/23 14:52 Resp 20 09/18/23 14:52 BP 154/102 H 09/18/23 14:52 Pulse Ox 97 09/18/23 14:52 O2 Del Method Room Air 09/18/23 14:52 O2 Flow Rate 0 09/17/23 12:45 Testing Laboratory Results 09/18/23 10:44 09/18/23 10:44 PT 11.5 Seconds (9.0-12.0) 09/16/23 20:50 INR 1.1 (0.9-1.1) 09/16/23 20:50 APTT 28 Seconds (21-31) 09/16/23 20:50 Blood Type O Positive 09/16/23 20:50 Antibody Screen NEGATIVE 09/16/23 20:50 Electrocardiogram Date: 09/16/23 Atrial fibrillation with rapid ventricular response, rate 110 bpm Abnormal ECG When compared with ECG of 07-JUL-2023 09:59, Incomplete right bundle branch block no longer present Confirmed by Satish German ([id number]) on 09/17/2023 10:12:07 AM Echocardiogram Date: 01/31/23 Normal LV size and systolic function with no regional wall motion abnormalities EF 60-65% Asymmetric basal septal hypertrophy s/p bioprosthetic AV replacement No significant aortic stenosis or regurgitation by limited Doppler
--- NOTE | 2023-09-18 15:55 | GI REPORT ---
[facility] Patient: JACOB WANG : 1955 Sex at : Male Age: 68 Years Procedure: Upper GI endoscopy Date: 09/18/2023 Attending Physician: Andrew Pang MD Referring MD: MARITZA BARBOSA Indications: - Suspected upper gastrointestinal bleeding - Melena - Anemia Medications: - Monitored Anesthesia Care Complications: - No immediate complications. Estimated Blood Loss: - Estimated blood loss: none. Procedure: - The egd scope was introduced through the mouth and advanced to the second part of the duodenum. - The upper GI endoscopy was accomplished with ease. - The patient tolerated the procedure well. Findings: - The examined esophagus was normal. No evidence of Flores's mucosa or esophagitis - The Z-line was regular and was found 40 cm from the incisors. - One non-bleeding cratered gastric ulcer with a clean ulcer base (Enoc Class III) was found in the prepyloric region of the stomach. The lesion was 10 mm in largest dimension. This was biopsied with a cold forceps for histology. Biopsies were taken with a cold forceps for histology. - Otherwise the stomach was normal. - The examined duodenum was normal. Impression: - Normal esophagus. - No evidence of Flores's mucosa or esophagitis - Z-line regular, 40 cm from the incisors. - Non-bleeding gastric ulcer with a clean ulcer base (Neoc Class III). Biopsied. - Otherwise the stomach was normal. - Normal examined duodenum. Recommendation: - Await pathology results. - Observe patient's clinical course. - Continue proton pump inhibitor. Monitor CBC. Awaiting pathology. Treat appropriately if positive for Helicobacter pylori EGD in 8 to 12 weeks to assure ulcer healing. Procedure Code(s): - 58849, Esophagogastroduodenoscopy, flexible, transoral; with biopsy, single or multiple Diagnosis Code(s): - K92.1, Melena (includes Hematochezia) - D64.9, Anemia, unspecified - K25.9, Gastric ulcer, unspecified as acute or chronic, without hemorrhage or perforation CPT(R) - 2023 copyright [employer]. All Rights Reserved. The CPT codes, CCI edits and ICD codes generated are intended as suggestions and were generated based on input data. These codes are preliminary and upon pipeline superintendent division review may be revised to meet current compliance and payer requirements. The provider is responsible for the final determination of appropriate codes, and modifiers. Andrew Pang M.D. This document has been electronically signed. Note Initiated:09/18/2023 Note Completed:09/18/2023 3:54 PM [id number]
--- NOTE | 2023-09-18 16:00 | Communication Note ---
Date of Service: September 18, 2023 EGD showed prepyloric ulcer versus clear ulcer base. Biopsies were obtained for Helicobacter pylori and histology. Okay to discharge from GI standpoint. Continue proton pump inhibitor. Restart apixaban in 3 to 5 days. Follow-up endoscopy in 8 to 12 weeks. This will be arranged through the GI office.
--- NOTE | 2023-09-18 16:01 | Anesthesiology Progress Note ---
Date of Service September 18, 2023 Anesthesia Post Procedure Vital Signs Vital Signs: Temp Pulse Pulse Resp BP BP Pulse Ox 09/18/23 15:53 112 H 14 121/90 94 09/18/23 14:52 97.3 F L 107 H 20 154/102 H 97 09/18/23 14:00 86 09/18/23 12:54 107 H 127/86 09/18/23 12:39 135 H 130/80 09/18/23 11:19 100 H 09/18/23 10:34 97.5 F L 89 22 121/89 97 09/18/23 07:29 97.7 F 96 H 22 136/91 95 09/18/23 06:48 98.1 F 119 H 18 163/93 H 94 09/18/23 04:00 97 H 16 140/107 H 98 09/18/23 03:30 109 H 17 97 09/18/23 03:03 106 H 16 97 09/18/23 02:39 103 H 16 98 09/18/23 02:00 95 H 14 98 09/18/23 01:55 09/18/23 01:36 103 H 14 98 09/18/23 01:00 109 H 21 98 09/18/23 00:45 102 H 13 98 09/18/23 00:00 163/109 H 09/17/23 23:54 100 H 19 98 09/17/23 23:33 23 97 09/17/23 23:20 145 H 09/17/23 23:11 153/110 H 09/17/23 23:09 17 09/17/23 23:06 106 H 22 96 09/17/23 16:21 109 H O2 Del Method 09/18/23 15:53 Room Air 09/18/23 14:52 Room Air 09/18/23 14:00 09/18/23 12:54 09/18/23 12:39 09/18/23 11:19 09/18/23 10:34 CPAP 09/18/23 07:29 Room Air 09/18/23 06:48 Room Air 09/18/23 04:00 CPAP 09/18/23 03:30 09/18/23 03:03 09/18/23 02:39 09/18/23 02:00 09/18/23 01:55 Room Air 09/18/23 01:36 09/18/23 01:00 09/18/23 00:45 09/18/23 00:00 09/17/23 23:54 09/17/23 23:33 09/17/23 23:20 09/17/23 23:11 09/17/23 23:09 09/17/23 23:06 09/17/23 16:21 Transfer of Care Handoff Completed per policy Notes Mental Status: alert / awake / arousable and participated in evaluation Patient Amnestic to Procedure: Yes Nausea / Vomiting: adequately controlled Pain: adequately controlled Airway Patency, RR, SpO2: stable & adequate BP & HR: stable & adequate Hydration State: stable & adequate Anesthetic Complications: no major complications apparent and Pt Satisfied with anesthetic care
[2023-09-18] MEDS ORDERED: ONDANSETRON INJ 2 MG/ML 2 ML VIAL IV PRN (16:36)
[2023-09-18] MEDS ORDERED: ACETAMINOPHEN 325 MG TAB PO PRN (16:36)
[2023-09-18] MEDS: SUCRALFATE 1 GM TAB PO SCH (17:53)
[2023-09-18] MEDS: PANTOprazole 40 MG TAB PO SCH (20:01)
[2023-09-18] MEDS: METOPROLOL TARTRATE 25 MG TAB PO SCH (20:02)
[2023-09-19] MEDS: LEVOTHYROXINE SODIUM 200 MCG TABLET PO SCH (06:32)
[2023-09-19 07:28] LABS: Basophils # (auto) 0.05 K/uL (0.00-0.20); Basophils % (auto) 0.8 %; Eosinophils # (auto) 0.09 K/uL (0.00-0.50); Eosinophils % (auto) 1.4 %; Hematocrit (blood only) 26.7 % (42.0-52.0); Hemoglobin 8.3 g/dl (14.0-18.0); Lymphocytes # (auto) 0.66 K/uL (1.20-3.40); Mean Corpuscular Hemoglobin 28.8 pg (25.0-34.0); Mean Corpuscular Hgb Conc 31.1 g/dL (32.0-36.0); Mean Corpuscular Volume 92.7 fL (80.0-100.0); Mean Platelet Volume 10.5 fL (9.4-12.4); Monocytes # (auto) 0.75 K/uL (0.11-0.59); Monocytes % (auto) 11.3 %; Neutrophils # (auto) 4.88 K/uL (1.40-6.50); Neutrophils % (auto) 73.5 %; Nucleated RBC # (auto) 0.02 K/uL (0.00-0.12); Nucleated RBC % (auto) 0.3 %; Platelet Count 188 K/uL (130-400); RDW Coefficient of Variation 18.7 % (11.5-14.5); RDW Standard Deviation 63.7 fL (36.4-46.3); Red Blood Count 2.88 M/uL (4.70-6.10); White Blood Count 6.63 K/ul (4.8-10.8)
[2023-09-19 08:03] LABS: BUN Creatinine Ratio 15.7 (10-20); Calcium 9.2 mg/dl (8.6-10.3); Creatinine Clr Calc Pharmacy 28.9 ml/min; Est GFR (African American) 17.1 ml/min; Est GFR (Non-African American) 14.7 ml/min
[2023-09-19 08:07] VITALS: RESP 23; TEMP 97.5; O2SAT 97
[2023-09-19] MEDS: CHOLECALCIFEROL 25 MCG (1000 UNITS) TAB PO SCH (09:56)
[2023-09-19] MEDS: MULTIVITAMIN TAB PO SCH (09:57)
[2023-09-19 10:02] VITALS: BP 150/87
--- NOTE | 2023-09-19 11:39 | Discharge Summary ---
Date of Service September 19, 2023 Admission HPI Per Admitting Provider Pt is a 68 yo male with PMH of RCC, hypothyroidism, and GERD presenting after being evaluated by nephrology who recommended he come to the ER if his symptoms got worse. Pt notes he had his most recent immunotherapy tx Friday 09/08. On Friday, he started feeling very fatigued when walking short distances. His at that time also noted dark black, tarry stools. He denies abdominal pain, N/V, and BRBPR. He was told to present to the hospital for concern of needing a blood transfusion. In the ER, pt was given 80mg pantoprazole IV, famotidine 20 mg IV, and 500cc NS. He was also ordered 2u of pRBCs. Principal Diagnosis Upper GI bleed, acute blood loss anemia requiring transfusion, prepyloric gastric ulcer Discharge Exam General-alert and oriented x3, no fever, no chills. Morbidly obese HEENT-head atraumatic and normocephalic, pupils equal and reactive to light, extraocular muscles intact Neck-no lymphadenopathy or thyromegaly, trachea midline Chest-clear to auscultation. No rales, wheezing or rhonchi Cardiac-regular rate and rhythm, normal S1 and S2 Abdomen-normal bowel sounds, no hepatosplenomegaly Extremities-no cyanosis, clubbing, or edema Neuro-cranial nerves II through XII intact, motor and sensory function within normal limits, strength symmetrical, no focal deficits Psych-normal affect, normal mood Discharge Data Allergies Allergy/AdvReac Type Severity Reaction Status Date / Time No Known Allergies Allergy Verified 09/16/23 21:52 Consultations 09/16/23 21:57 ED Decision to Admit Stat 09/17/23 11:47 Consult Gastroenterology Routine Procedures Performed Operation Date: 09/18/23 16:45 Actual Procedures p EGD Biopsy Cytology - Andrew Pang MD Hospital Course (1) Acute GI bleeding: Recent onset of melena indicating probable upper GI bleeding. Treated while hospitalized with intravenous Protonix. Diet has been advanced GI consultation and recommendations appreciated. EGD was completed yesterday, September 17, and revealed a nonbleeding prepyloric ulcer. He is now on Protonix and Carafate therapy. (2) Acute blood loss anemia: Hemoglobin 7.4 on admission. 2 units packed red blood cells administered . Hemoglobin improved to 9.3 and remains stable. Serial labs. He feels better (3) Coagulopathy: Due to chronic Eliquis therapy. Eliquis is on hold. 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 Now appears stable at 3.8. Monitor intake and output. Serial labs (5) Chronic diastolic CHF (congestive heart failure): No overt CHF at this time. Monitor intake and output. Plan Home today, September 18 Total Time Total Time Spent Total Time Spent (In Minutes): 45-minute Discharge Plan Discharge Items Patient Disposition: Home - Self-Care Reason For Visit: GI BLEED Discharge Diagnosis: Upper GI bleed, prepyloric ulceration, acute blood loss anemia Condition on Discharge: Good Activity: Resume your previous activity Non-emergency contact: Primary Care Provider Call non-emergency contact if: your symptoms worsen Follow-up/Referrals: Veronica Tucker MD [Primary Care Provider] - Diet: Regular and Heart Healthy Addtl Attending Provider Instructions: Take Protonix and Carafate as directed. Krissyquis remains on hold Pending Studies at Discharge: No Stand-Alone Forms: My [employer], Smoking Cessation Medications and DC Order Prescriptions: New sucralfate 1 gram Tablet 1 g PO QID Qty: 60 0RF pantoprazole 40 mg Tablet,Delayed Release (Dr/Ec) 40 mg PO BID Qty: 0 0RF Continued apixaban 5 mg tablet 5 mg PO BID Qty: 60 Rx Instructions: PER PT "TOOK TODAY, 09/16/23, TOLD TO STOP TAKING FROM NOW ON". metoprolol tartrate 25 mg tablet 25 mg PO BID Qty: 180 furosemide 40 mg tablet See Rx Instructions .ROUTE .COMPLEX Hold Instructions: Resume on 08/09/23. until resumed by Dr. Timmons Patient Comments: 40 mg PO take 2 tablets every Fri. fri. fri. and take 1 tablet every other day Rx Instructions: Take 80mg by mouth on Fri/Fri/Fri and 40mg by mouth all other days multivitamin tablet 1 tab PO DAILY cholecalciferol (vitamin D3) 50 mcg (2,000 unit) tablet 2,000 unit PO DAILY Qty: 30 levothyroxine 200 mcg tablet 200 mcg PO QAM amoxicillin 500 mg capsule 2,000 mg PO DIRECTED PRN (Reason: 1 HR PRIOR TO DENTAL APPT.) betamethasone, augmented 0.05 % cream 1 applic TOPICAL BID PRN (Reason: Skin Irritation) (DME) pen needle, diabetic, safety 31 gauge x 5/32" needle See Rx Instructions .Route Qty: 100 0RF Rx Instructions: to inject insulin 1x a day (DME) OneTouch Verio test strips Strip See Rx Instructions .Route Qty: 100 1RF Rx Instructions: check blood sugar 3x a day (DME) lancets [OneTouch Delica Plus Lancet] 33 gauge misc See Rx Instructions .Route Qty: 100 1RF Rx Instructions: to check blood sugar 3x a day prednisone 10 mg tablet See Taper PO DAILY Qty: 49 0RF Taper: Taper, Blank 160 mg DAILY for 1 Day 150 mg DAILY for 3 Days 140 mg DAILY for 3 Days 130 mg DAILY for 3 Days 120 mg DAILY for 3 Days 110 mg DAILY for 1 Day Rx Instructions: Per Spouse, pt is currently on 30mg x3 days; 20mg x3 days; 10mg x3 days. Spouse unsure of remainder of prednisone taper but believes he drops down to 5mg x3days Discontinued pantoprazole 40 mg tablet,delayed release (DR/EC) 40 mg PO DAILY Rx Instructions: PER PT "PICKED UP FROM PHARMACY, DID NOT START YET". Discharge Orders: Discharge Order (Routine); Ordered 09/19/23 Ordered By: Jhon Diego Admission Data Admit Date/Time: 09/16/23 23:02 Attending Provider: Jhon Diego Admit Provider: Rubi Mcdermott Primary Care Provider: Veronica Tucker Other Providers: Greyson Lucero; Yury Winslow; Kevin Wiley; Lexie Funez; Es Carr; Aurora Edwards; Veronica Alcantara; Fartun Duarte; Amrit Albrecht; Afsaneh Leon; Rolf De La Paz; Milan Wilkins; Yesica Enrique; Nilam Gomez; Maryjane Pete; Mary Salazar; Shane Edwards; Matti Boyce; Ramy Lopez; Reyna Mckeon; Brandee King Jr; Andrew Pang; Henok Medrano; Christian Hernandez Coding Level of Care Code 89076 INP/OBS DISCH >30 MIN Diagnoses Acute GI bleeding K92.2 Acute blood loss anemia D62 Coagulopathy D68.9 Chronic kidney disease, stage IV (severe) N18.4 Chronic diastolic CHF (congestive heart failure) I50.32
[2023-09-19 12:41] VITALS: PULSE 95
== END 2023-09-19 13:18 | disposition home or self-care (01) | DRG 378 ==
LOC: ED 20:30 → EDINP 23:02 → SUATTDRO 23:02 → 2S 23:34 → UNDODISIN 09-17 07:17 → 2S 09-18 06:02

== ENCOUNTER 2023-11-05 10:53 | Observation (INO) ==
--- NOTE | 2023-11-05 11:14 | Emergency Department Note ---
Impression & Plan Acute dyspnea, Pulmonary edema, CKD (chronic kidney disease) ED Provider Note ED Provider Note NAME: JACOB WANG AGE:68 SEX: Male : 1955 ARRIVES VIA: private vehicle INFORMANT: Patient ED PROVIDER(s): Jaclyn Villeda DO CHIEF COMPLAINT: Increased shortness of breath HPI: This is a 68-year-old male presents emergency department due to increased shortness of breath since Friday. Patient has known cardiac history including atrial fibrillation and prior TAVR, he is anticoagulated. Patient also with recent diagnosis of renal cell carcinoma. He is receiving immunotherapy treatments. He did have renal cell carcinoma 14 years ago and had one of his kidneys removed already. Patient follows with Dr. Timmons of nephrology. He states his last creatinine was 3.3. He denies any worsening cough or other URI symptoms. Denies fevers, chills, or increased leg swelling. He states his breathing feels at baseline while he is seated and at rest however with any movement he is markedly more dyspneic compared to normal. He does take Lasix daily alternating between 40 mg and 80 mg. He denies any coming chest pain, abdominal pain, nausea or vomiting, change in urine, or change in stools. No known sick contact. PAST MEDICAL HISTORY:See Below PAST SURGICAL HISTORY:See Below FAMILY HISTORY:See Below SOCIAL HISTORY:See Below HOME MEDICATIONS:See Below ALLERGIES:See Below VITALS:See Below PHYSICAL EXAMINATION: GENERAL: alert, well appearing, well nourished, no distress, non-toxic EYE EXAM: normal conjunctiva, PERRL and EOM's grossly intact OROPHARYNX: no exudate, no erythema, lips, buccal mucosa, and tongue normal and mucous membranes are moist NECK: supple, no nuchal rigidity, no adenopathy, non-tender LUNGS: Decreased bilaterally to auscultation. Normal chest wall mechanics, no w/r, bibasilar rales HEART: no murmurs, S1 normal and S2 normal ABDOMEN: abdomen soft, non-tender, normo-active bowel sounds, no masses, no rebound or guarding. BACK: Back is symmetrical on inspection and there is no deformity, no midline tenderness, no CVA tenderness. SKIN: no rashes, petechiae, orbruising UPPER EXTREMITIES: upper extremities are grossly normal. FROM, nml pulses b/l. LOWER EXTREMITIES: No pitting edema. FROM, nml pulses b/l. NEURO EXAM: Normal sensorium, cranial nerves II-XII grossly intact, normal speech, no facial droop,nogross weakness of arms, no gross weakness of legs. Gross sensation intact. No ataxia. Vital Signs: reviewed and remarkable Differential Diagnosis: pneumonia, bronchitis, COPD/Asthma exacerbation, pneumothorax, pulmonary embolism, congestive heart failure, acute coronary syndrome, as well as others were considered MEDICAL DECISION MAKING: This is a 68-year-old male presents emergency room due to concern for increased shortness of breath and fluid retention. Patient with known history of chronic kidney disease does follow with nephrology. Patient afebrile and vital signs stable. Labs drawn and sent, IV established, EKG and chest ray performed at bedside interpreted by me and patient monitored on telemetry. Patient noted to have a mildly elevated creatinine compared to prior. Patient's chest x-ray with obvious bilateral pulmonary edema. Patient was more dyspneic and tachypneic with any movement or exertion and did have accompanying orthopnea. Patient noted to have an elevated troponin however no accompanying chest pain, I suspect this is more likely secondary to demand and his renal dysfunction, I do not suspect primary ACS. Patient given IV Lasix 80 mg down here additionally and did begin to diurese. Case discussed with the hospitalist team for additional evaluation and management. Consultation(s): 1340: DIscussed with Dr. Yeboah for additional inpatient evaluation/mgmt. ER Treatment Provided: See below Diagnostics Interpreted By Me: -ECG: Atrial fibrillation at a rate of 105, normal axis, normal intervals, nonspecific ST/T wave changes -Cardiac Monitoring: An order was placed for continuous cardiac monitoring. The monitor shows a rate of 98 with a.fib rhythm. -Laboratory studies: As stated above and show below. -Imaging studies: cxr: +cm, b/l pulm edema noted, small b/l effusions, no focal consolidation Triage Nursing Note Reviewed Prior/Outside Records Reviewed- prior nephrology note reviewed Past Med/Surg History Problem List (Updated 11/07/23 @ 03:06 by Jaclyn Villeda DO) CKD (chronic kidney disease) (Acute) Pulmonary edema (Acute) Acute dyspnea (Acute) Acute GI bleeding (Acute) Acute blood loss anemia Immunotherapy High anion gap metabolic acidosis Acute kidney injury superimposed on CKD (Acute) Elevated LFTs (Acute) Hyperglycemia Hypothyroidism (Acute) Hypercholesterolemia (Acute) Medical History (Updated 11/07/23 @ 03:06 by Jaclyn Villeda DO) Chronic diastolic CHF (congestive heart failure) Chronic kidney disease, stage IV (severe) Atrial fibrillation Coagulopathy SARAH (obstructive sleep apnea) Heart failure with preserved ejection fraction Renal cell carcinoma CKD (chronic kidney disease) stage 4, GFR 15-29 ml/min Hypertension Surgical History (Updated 11/06/23 @ 12:48 by Ayana Fletcher MD) S/P TAVR (transcatheter aortic valve replacement) S/p nephrectomy Family History Mother Cancer mother - bowel Social History Smoking Status: Never smoker Hx Alcohol Use: No Hx Substance Use: No Preferred Language: Sammarinese Communication Ability: Effective Data Governance Analyst Required: No Beliefs That Will Affect Care: None Current Living Situation: Spouse current occupational status: employed Feels Safe at Home: Yes Assistive Devices: CPAP Allergies Allergies Allergy/AdvReac Type Severity Reaction Status Date / Time No Known Allergies Allergy Verified 09/29/23 13:46 Home Meds Home Medications Medication Instructions Recorded Confirmed apixaban 5 mg tablet 5 mg PO BID #60 tabs 11/11/18 11/05/23 multivitamin 1 tab PO DAILY 11/11/18 11/05/23 cholecalciferol (vitamin D3) 50 2,000 unit PO DAILY #30 tabs 10/15/22 11/05/23 mcg (2,000 unit) tablet amoxicillin 500 mg capsule 2,000 mg PO DIRECTED PRN 1 HR 07/07/23 11/05/23 PRIOR TO DENTAL APPT. betamethasone, augmented 0.05 % 1 applic topical BID PRN Skin 07/07/23 11/05/23 topical cream Irritation levothyroxine 200 mcg tablet 200 mcg PO QAM 08/21/23 11/05/23 ferrous sulfate 325 mg (65 mg 325 mg PO DAILY 11/05/23 11/05/23 iron) tablet (iron) prednisone 10 mg tablet 10 mg PO DAILY 11/05/23 11/05/23 Previous Rx's Medication Instructions Recorded blood sugar diagnostic (OneTouch #100 ea 07/11/23 Verio test strips) lancets 33 gauge (OneTouch Delica #100 ea 07/11/23 Plus Lancet) pen needle, diabetic, safety 31 #100 ea 07/11/23 gauge x 5/32" pantoprazole 40 mg tablet,delayed 40 mg PO BID #0 tabs 09/19/23 release bumetanide 2 mg tablet 2 mg PO QAM #30 tabs 11/06/23 bumetanide 2 mg tablet 2 mg PO QAM #90 tabs 11/06/23 metoprolol tartrate 50 mg tablet 50 mg PO BID #180 tabs 11/06/23 metoprolol tartrate 50 mg tablet 50 mg PO BID #60 tabs 11/06/23 Results & Data (ED) Vital Signs Vital Signs - 24 hr 11/05/23 10:55 11/05/23 11:11 11/05/23 11:36 Temperature 36.7 C Temperature Source Temporal Artery Scan Pulse Rate 100 H 98 H Pulse Rate [Apical] 97 H Respiratory Rate 20 19 Respiratory Effort / Characteristics Non-Labored Spontaneous Non-Labored Respiratory Depth Normal Normal Respiratory Pattern Regular Blood Pressure 166/101 H Blood Pressure [Left Arm] 164/98 H Blood Pressure Mean 122 Blood Pressure Mean [Left Arm] 120 Blood Pressure Position Sitting Pulse Oximetry 93 95 Oxygen Delivery Method Room Air Room Air Oxygen Flow Rate Sepsis Recent Fever Within 48 Hours No Sepsis New/Unexplained Change in Mental Status No Sepsis Action Taken by Nursing No Action Required 11/05/23 11:58 11/05/23 11:58 11/05/23 13:11 Temperature Temperature Source Pulse Rate Pulse Rate [Apical] 106 H Respiratory Rate 20 Respiratory Effort / Characteristics Non-Labored Spontaneous Respiratory Depth Normal Normal Respiratory Pattern Regular Blood Pressure Blood Pressure [Left Arm] 148/98 H Blood Pressure Mean Blood Pressure Mean [Left Arm] 114 Blood Pressure Position Pulse Oximetry 94 92 Oxygen Delivery Method Room Air Room Air Oxygen Flow Rate 0 Sepsis Recent Fever Within 48 Hours Sepsis New/Unexplained Change in Mental Status Sepsis Action Taken by Nursing Laboratory Data 11/06/23 07:04 11/06/23 07:04 Lab Results 11/05/23 11/05/23 Range/Units 11:54 11:55 WBC 11.17 H (4.8-10.8) K/ul RBC 4.23 L (4.70-6.10) M/uL Hgb 12.2 L (14.0-18.0) g/dl Hct 39.4 L (42.0-52.0) % MCV 93.1 (80.0-100.0) fL MCH 28.8 (25.0-34.0) pg MCHC 31.0 L (32.0-36.0) g/dL RDW Std Deviation 60.0 H (36.4-46.3) fL RDW Coeff of Nick 17.5 H (11.5-14.5) % Plt Count 175 (130-400) K/uL MPV 10.7 (9.4-12.4) fL Immature Gran % (Auto) 1.1 % Neut % (Auto) 87.1 % Lymph % (Auto) 4.8 % Harlan % (Auto) 6.2 % Eos % (Auto) 0.4 % Baso % (Auto) 0.4 % Neut # (Auto) 9.74 H (1.40-6.50) K/uL Lymph # (Auto) 0.54 L (1.20-3.40) K/uL Harlan # (Auto) 0.69 H (0.11-0.59) K/uL Eos # (Auto) 0.04 (0.00-0.50) K/uL Baso # (Auto) 0.04 (0.00-0.20) K/uL Immature Gran # (Auto) 0.12 (0.01-0.20) K/uL PT 11.9 (9.0-12.0) Seconds INR 1.1 (0.9-1.1) Sodium 138 (136-145) mmol/L Potassium TNP 4.3 Chloride 107 (98-107) mmol/L Carbon Dioxide 23 (21-32) mmol/L Anion Gap 8 (3-11) BUN 45 H (6-23) mg/dl Creatinine 3.44 H (0.6-1.4) mg/dl Est Cr Clr Drug Dosing 33.5 ml/min Est GFR ( Amer) 19.8 ml/min Est GFR (Non-Af Amer) 17.0 ml/min BUN/Creatinine Ratio 13.1 (10-20) Glucose 140 H (70-99(Fasting)) mg/dl Calcium 9.4 (8.6-10.3) mg/dl Phosphorus 3.6 (2.5-4.9) mg/dl Magnesium 2.1 (1.7-2.4) mg/dl Total Bilirubin 0.8 (0.2-1.0) mg/dl AST TNP 39 ALT 34 (7-52) U/L Alkaline Phosphatase 88 (34-104) U/L Troponin I High Sens 61.1 H* (0-20) pg/ml Total Protein 6.3 (6.0-8.3) gm/dl Albumin 3.8 (3.4-5.0) gm/dl Globulin 2.5 (2.5-4.0) gm/dl Albumin/Globulin Ratio 1.5 (0.9-2) Administered Medications Discontinued Medications Apixaban (Apixaban 5 Mg Tablet) 5 mg PO BID [facility] Stop: 12/05/23 20:59 Last Admin: 11/06/23 08:11 Dose: 5 mg Documented By: Admin: 11/05/23 22:34 Dose: 5 mg Documented By: HARSHA Bumetanide (Bumetanide 1 Mg Tab) 2 mg PO QAM [facility] Stop: 12/06/23 08:59 Last Admin: 11/06/23 09:32 Dose: 2 mg Documented By: Furosemide (Furosemide 40 Mg/4 Ml Vial) 80 mg IV ONE ONE Stop: 11/05/23 11:53 Last Admin: 11/05/23 12:15 Dose: 80 mg Documented By: DOMINGO Furosemide (Furosemide 40 Mg/4 Ml Vial) 80 mg IV BID17 [facility] Stop: 12/05/23 16:59 Last Admin: 11/06/23 08:11 Dose: 80 mg Documented By: Admin: 11/05/23 17:48 Dose: 80 mg Documented By: AM Levothyroxine Sodium (Levothyroxine Sodium 200 Mcg Tablet) 200 mcg PO DAILYBB [facility] Stop: 12/06/23 06:29 Last Admin: 11/06/23 06:14 Dose: 200 mcg Documented By: HARSHA Metoprolol Tartrate (Metoprolol Tartrate 25 Mg Tab) 25 mg PO BID [facility] Stop: 12/05/23 20:59 Last Admin: 11/06/23 08:11 Dose: 25 mg Documented By: Admin: 11/05/23 22:35 Dose: 25 mg Documented By: HARSHA Multivitamins (Multivitamin Tab) 1 tab PO DAILY [facility] Stop: 12/06/23 08:59 Last Admin: 11/06/23 08:11 Dose: 1 tab Documented By: Pantoprazole Sodium (Pantoprazole 40 Mg Tab) 40 mg PO BID [facility] Stop: 12/05/23 20:59 Last Admin: 11/06/23 08:11 Dose: 40 mg Documented By: Admin: 11/05/23 22:35 Dose: 40 mg Documented By: HARSHA Potassium Chloride (Potassium Chloride 10 Meq Tabcr) 10 meq PO BID [facility] Stop: 12/05/23 20:59 Last Admin: 11/06/23 08:11 Dose: 10 meq Documented By: Admin: 11/05/23 22:36 Dose: 10 meq Documented By: HARSHA Prednisone (Prednisone 10 Mg Tablet) 10 mg PO DAILY [facility] Stop: 12/06/23 08:59 Last Admin: 11/06/23 08:11 Dose: 10 mg Documented By: Imaging Data Radiologist's Impression: Chest X-Ray 11/05/23 11:10 XR chest 1V portable HISTORY: 68 years-old Male sob acute shortness of breath COMPARISON: None TECHNIQUE: AP view of the chest FINDINGS: Cardiac silhouette is enlarged. Pulmonary vascular congestion with interstitial coarsening. No pneumothorax. Small pleural effusions with mild bibasilar opacities. Bones are grossly intact. IMPRESSION: 1. Cardiomegaly with pulmonary edema. 2. Small pleural effusions with mild bibasilar consolidation. ACT 112: Negative or not required by law. The above report was generated using voice recognition software. It may contain grammatical, syntax or spelling errors. Electronically signed by: Vijay Tello M.D. 11/05/2023 11:38 AM Discharge Plan Visit Data Chief Complaint: Shortness of Breath/Dyspnea Stated Complaint: TROUBLE BREATHING WHEN MOVING ED Provider: Jaclyn Villeda Discharge Problem: Acute dyspnea, Pulmonary edema, CKD (chronic kidney disease) Patient Disposition: Admitted As Inpatient Discharge Instructions Interventions: ED Discharge Assessment Last Done: 11/05/23 14:52
--- NOTE | 2023-11-05 11:39 | XRay Report ---
XR chest 1V portable HISTORY: 68 years-old Male sob acute shortness of breath COMPARISON: None TECHNIQUE: AP view of the chest FINDINGS: Cardiac silhouette is enlarged. Pulmonary vascular congestion with interstitial coarsening. No pneumo thorax. Small pleural effusions with mild bibasilar opacities. Bones are grossly intact. IMPRESSION: 1. Cardiomegaly with pulmonary edema. 2. Small pleural effusions with mild bibasilar consolidation. ACT 112: Negative or not required by law. The above report was generated using voice recognition software. It may contain grammatical, syntax o r spelling errors. Electronically signed by: Vijay Tello M.D. 11/05/2023 11:38 AM
[2023-11-05 12:11] LABS: Adenovirus PCR Not Detected (NotDetected); Bordetella parapertussis PCR Not Detected (NotDetected); Bordetella pertussis PCR Not Detected (NotDetected); Chlamydia pneumoniae PCR Not Detected (NotDetected); Coronavirus 229E PCR Not Detected (NotDetected); Coronavirus CoV-2 (COVID19)PCR Not Detected (NotDetected); Coronavirus HKU1 PCR Not Detected (NotDetected); Coronavirus NL63 PCR Not Detected (NotDetected); Coronavirus OC43PCR Not Detected (NotDetected); Human Metapneumovirus PCR Not Detected (NotDetected); Influenza A PCR Not Detected (NotDetected); Influenza B PCR Not Detected (NotDetected); Mycoplasma pneumoniae PCR Not Detected (NotDetected); Parainfluenza Virus 1 PCR Not Detected (NotDetected); Parainfluenza Virus 2 PCR Not Detected (NotDetected); Parainfluenza Virus 3 PCR Not Detected (NotDetected); Parainfluenza Virus 4 PCR Not Detected (NotDetected); Respiratory Syncytial VirusPCR Not Detected (NotDetected); Rhinovirus/Enterovirus PCR Not Detected (NotDetected)
[2023-11-05] MEDS: FUROSEMIDE 40 MG/4 ML VIAL IV ONE (12:15)
[2023-11-05 12:21] LABS: Basophils # (auto) 0.04 K/uL (0.00-0.20); Basophils % (auto) 0.4 %; Eosinophils # (auto) 0.04 K/uL (0.00-0.50); Eosinophils % (auto) 0.4 %; Hematocrit (blood only) 39.4 % (42.0-52.0); Hemoglobin 12.2 g/dl (14.0-18.0); Immature Granulocytes # (auto) 0.12 K/uL (0.01-0.20); Immature Granulocytes % (auto) 1.1 %; Lymphocytes # (auto) 0.54 K/uL (1.20-3.40); Lymphocytes % (auto) 4.8 %; Mean Corpuscular Hemoglobin 28.8 pg (25.0-34.0); Mean Corpuscular Volume 93.1 fL (80.0-100.0); Mean Platelet Volume 10.7 fL (9.4-12.4); Monocytes # (auto) 0.69 K/uL (0.11-0.59); Monocytes % (auto) 6.2 %; Neutrophils # (auto) 9.74 K/uL (1.40-6.50); Neutrophils % (auto) 87.1 %; Platelet Count 175 K/uL (130-400); RDW Coefficient of Variation 17.5 % (11.5-14.5); Red Blood Count 4.23 M/uL (4.70-6.10); White Blood Count 11.17 K/ul (4.8-10.8)
[2023-11-05 12:38] LABS: INR 1.1 (0.9-1.1); Prothrombin Time 11.9 Seconds (9.0-12.0)
[2023-11-05 12:51] LABS: Alanine Aminotransferase 34 U/L (7-52); Albumin Globulin Ratio 1.5 (0.9-2); Albumin Level 3.8 gm/dl (3.4-5.0); Alkaline Phosphatase 88 U/L (34-104); Anion Gap 8 (3-11); BUN Creatinine Ratio 13.1 (10-20); Bilirubin,Total 0.8 mg/dl (0.2-1.0); Blood Urea Nitrogen 45 mg/dl (6-23); Calcium 9.4 mg/dl (8.6-10.3); Carbon Dioxide 23 mmol/L (21-32); Chloride 107 mmol/L (98-107); Creatinine Clr Calc Pharmacy 33.5 ml/min; Est GFR (African American) 19.8 ml/min; Globulin 2.5 gm/dl (2.5-4.0); Glucose 140 mg/dl (70-99(Fasting)); Magnesium 2.1 mg/dl (1.7-2.4); Phosphorus 3.6 mg/dl (2.5-4.9); Sodium 138 mmol/L (136-145); Total Protein 6.3 gm/dl (6.0-8.3); Troponin I High Sensitivity 61.1 pg/ml (0-20)
[2023-11-05 13:00] LABS: Potassium 4.3 mmol/L (3.5-5.1)
--- NOTE | 2023-11-05 13:38 | History & Physical Report ---
Date of Service November 05, 2023 Assessment & Plan (1) Pulmonary edema: Plan: Progressive dyspnea 2/2 pulmonary edema 2/2 CKD - Cardiomegaly with pulmonary edema. Small effusions with bibasilar consolidation. With poor urinary output, has been normotensive and slightly tachycardic. Suspect due to renal disease, no chest pain o or hypotensively troponin is mildly elevated without acute territorial changes on EKG Patient with preserved ejection fraction on last echo, troponin is elevated however is without chest pain or EKG changes and suspect this may be 2/2 clearance versus demand and with diastolic dysfunction with severe volume overload [employer] patient reports he is compliant with torsemide, no salt indiscretion. Has had diminishing urine output dark and contrite in the last week -Patient is not anuric. in ER s/p Lasix 80mg with brisk diuresis and sy mptomatic improvement ? Transition to Bumex or torsemide for better absorption as outpatient - Nephrology consulted. Continue Lasix 80 mg twice daily. Potassium 4.3, will continue 10meq BID KCl supplment with Lasix and adjust as needed. Goal potassium 4.0. Previously had had some dyspnea with history of anemia and transfusion 09/2023 for hemoglobin less than 8. Upper endoscopy at that time showed a nonbleeding cratered gastric ulcer. Duodenum was normal. Biopsies taken for Helicobacter, and is recommended to continue PPI twice daily. Repeat EGD was anticipated in 8-12 weeks to reevaluate healing.Hemoglobin at time of admission is 12.2, from prior 8.7. No evidence of ongoing bleeding (2) Chronic kidney disease, stage IV (severe): Plan: CKD Baseline creatinine around 34. Creatinine 3.44 on admission. With AVF placement 10/20 in anticipation of eventual progression to dialysis anticipated through for sending us Previously on losartan/dapagliflozin which were held for renal function. Previously on nivolumab/ipilimumab but this was stopped due to immunotherapy reaction/hepatitis. Stage IV left renal cell carcinoma S/p nephrectomy, distant Currently on maintenance nivolumab. Prior immunotherapy discontinued due to hepatitis as noted (3) Hypothyroidism: Plan: Continue Synthroid Plan DVT prophylaxis: Anticoagulated Disposition:PCU CODE STATUS: Full code History of Present Illness Primary Care Provider: Veronica Tucker MD Chase "Paige" Anayeli is a 68-year-old male with a past medical history of A-fib on anticoagulation, TAVR, status post nephrectomy due to renal cell carcinoma, CKD who presents with progressive dyspnea over 3 days. No fever chills or sweats. No cough. No dyspnea at rest however has significant dyspnea on attempted exertion. No nausea/vomiting/diarrhea/constipation. No chest pain with his dyspnea. EKG on ER arrival is A-fib RVR rate [address] segment changes, low amplitude equivocal T wave in aVL otherwise no territorial T wave inversions/changes Chest x-ray is with pulmonary edema and bilateral effusions consistent with volume overload Per patient: Chase seen at the bedside. He reports over the last week he has had progressive shortness of breath. Endorses orthopnea. Has not had any chest shazia n chest pressure palpitations. No lightheadedness dizziness syncope or presyncope. He has noted progressive dyspnea and he can short of breath even walking back from the bathroom or trying to speak. He feels greatly improved following Lasix in the ER, and notes that he can now talk in full sentences and at least walk to the bathroom and back without being short of breath. He notes he has not had any salt indiscretion, does not cook or use salt. He has noticed that his urine in the last week has decreased in volume. He typically pees "a couple of inches the thyroid a measure "twice a day however in the last week has had small amounts of very dark urine production. No pain/dysuria/fever. No flank pain. He has been taking his Lasix as directed. He did have his fistula placed in anticipation of ESRD at the end of September. Site is well-healing. He notes he has a single kidney, and a history of renal carcinoma. He is no longer on any Biologics/immunotherapy agents due to history of reaction and hepatitis he now only takes prednisone 10 mg daily. Medical History: Reviewed Medications: Reviewed Surgical History: Reviewed Family history: Reviewed Allergies: Reviewed Social History: No tobacco/etoh Code Status: Full Allergies Allergy/AdvReac Type Severity Reaction Status Date / Time No Known Allergies Allergy Verified 09/29/23 13:46 Home Medications Medication Instructions Recorded Confirmed Type apixaban 5 mg tablet 5 mg PO BID #60 tabs 11/11/18 11/05/23 History furosemide 40 mg tablet See Rx Instructions .Route .COMPLEX 11/11/18 11/05/23 History metoprolol tartrate 25 mg tablet 25 mg PO BID #180 tabs 11/11/18 11/05/23 History multivitamin 1 tab PO DAILY 11/11/18 11/05/23 History cholecalciferol (vitamin D3) 50 2,000 unit PO DAILY #30 tabs 10/15/22 11/05/23 History mcg (2,000 unit) tablet amoxicillin 500 mg capsule 2,000 mg PO DIRECTED PRN 1 HR 07/07/23 11/05/23 History PRIOR TO DENTAL APPT. betamethasone, augmented 0.05 % 1 applic topical BID PRN Skin 07/07/23 11/05/23 History topical cream Irritation blood sugar diagnostic (OneTouch #100 ea 07/11/23 09/29/23 Rx Verio test strips) lancets 33 gauge (OneTouch Delica #100 ea 07/11/23 09/29/23 Rx Plus Lancet) pen needle, diabetic, safety 31 #100 ea 07/11/23 09/29/23 Rx gauge x 5/32" levothyroxine 200 mcg tablet 200 mcg PO QAM 08/21/23 11/05/23 History pantoprazole 40 mg tablet,delayed 40 mg PO BID #0 tabs 09/19/23 11/05/23 Rx release ferrous sulfate 325 mg (65 mg 325 mg PO DAILY 11/05/23 11/05/23 History iron) tablet (iron) prednisone 10 mg tablet 10 mg PO DAILY 11/05/23 11/05/23 History Past Med/Surg History Problem List (Updated 11/05/23 @ 13:14 by Jaclyn Villeda DO) Pulmonary edema (Acute) Acute dyspnea (Acute) Acute GI bleeding (Acute) Acute blood loss anemia Immunotherapy High anion gap metabolic acidosis Acute kidney injury superimposed on CKD (Acute) Elevated LFTs (Acute) Hyperglycemia Hypothyroidism (Acute) Hypercholesterolemia (Acute) Medical History Renal cell carcinoma CKD (chronic kidney disease) stage 4, GFR 15-29 ml/min Hypertension Surgical History S/p nephrectomy Family History Mother Cancer mother - bowel Social History Smoking Status: Never smoker Hx Alcohol Use: No Hx Substance Use: No Preferred Language: Togolese Communication Ability: Effective Methods Examiner Required: No Beliefs That Will Affect Care: None Current Living Situation: Spouse current occupational status: employed Other Information That Helps Us Care for You: No Feels Safe at Home: Yes Safety Concerns: Feels Safe At This Time Assistive Devices: None Physical Exam Physical Exam: General: A&Ox3. NAD. Cooperative. HEENT: Atraumatic, normocephalic. Vision and hearing grossly intact Pulm: Diminished with slight crackles in the bases bilaterally. Symmetrical chest rise. No increased work of breathing. No respiratory distress. Cardiac: RRR, +sm. Radial pulses intact and symmetrical. +JVD Abdominal: Nontender, nondistended, soft. BS present. Extremities: Warm and dry. Pitting edema is present in the ankles and hands. Right upper extremity fistula is in place well-healing without discharge/erythema. Results & Data Results & Data Vital Signs (Past 12 Hours) Vital Signs Temp Pulse Pulse Resp BP BP Pulse Ox 11/05/23 13:11 106 H 20 148/98 H 92 11/05/23 11:58 94 11/05/23 11:36 97 H 19 164/98 H 95 11/05/23 11:11 98 H 11/05/23 10:55 36.7 C 100 H 20 166/101 H 93 O2 Del Method O2 Flow Rate 11/05/23 13:11 Room Air 11/05/23 11:58 Room Air 0 11/05/23 11:36 Room Air 11/05/23 11:11 11/05/23 10:55 Room Air PG Care Time/CCT Total # of Minutes Spent Total Time Spent with Patient: Total time spent is greater than 50% in coordination of care (as documented) at patient's floor/unit and/or counseling patient: Coding Level of Care Code 91875 INT INP/OBS CARE 3/75MIN Diagnoses Pulmonary edema J81.1 Chronic kidney disease, stage IV (severe) N18.4 Hypothyroidism E03.9
--- NOTE | 2023-11-05 13:43 | Electrocardiogram Report ---
Test Reason : Blood Pressure : */* mmHG Vent. Rate : 105 BPM Atrial Rate : * BPM P-R Int : * ms QRS Dur : 100 ms QT Int : 340 ms P-R-T Axes : * -7 177 degrees QTcB Int : 449 ms Atrial fibrillation with rapid ventricular response with premature ventricular or aberrantly conducte d complexes Incomplete right bundle branch block Nonspecific T wave abnormality Abnormal ECG When compared with ECG of 16-Sep-2023 20:46, Nonspecific T wave abnormality now evident in Lateral leads Confirmed by Lazarus Huddleston ([id number]) on 11/05/2023 1:43:09 PM Referred By: Confirmed By: Lazarus Huddleston
[2023-11-05] MEDS ORDERED: ACETAMINOPHEN 325 MG TAB PO PRN (15:26)
--- NOTE | 2023-11-05 15:49 | Nephrology Consultation ---
Date of Consultation November 05, 2023 Assessment & Plan (1) Acute kidney injury superimposed on CKD: (2) Pulmonary edema: Plan Stage IV CKD baseline creatinine lately around 3.3-3.5 mg/dl with history of right nephrectomy, hypertension, morbid obesity. Previously was on immunot herapy which was stopped because of complication with MARILEE and acute hepatitis which currently improved on steroid. Admitted with progressive weight gain and dyspnea over the last few days. At home he was on Lasix 40 mg daily, received Lasix 80 mg IV one-time and then continued on twice a day. Noted increased urine output and slight improvement in respiratory status. --Continue Lasix IV 80 mg twice a day, monitor intake and output closely, aim for net negative. If volume status improved significantly by tomorrow, will consider changing to Bumex 2 mg daily. -- Monitor renal function and electrolyte closely with high-dose IV diuretics as at baseline has advanced CKD and high risk for needing renal replacement therapy in future -- Right arm nephrology precaution -- Dose medications for EGFR less than 30 Thank you for allowing me to participate in your patient's care. It was a pleasure to see Mr. Guadalupe. History of Present Illness Reason for Consultation: Advanced CKD, volume overload Attending Physician: Glen Yeboah MD History of Present Illness Mr. Chase Guadalupe is a 68-year-old male with PMH of stage 4 CKD, nephrectomy due to RCC , admitted with volume overload and weight gain. Nephrology consult requested for management of above, EMR records were reviewed in detail during visit. was at bedside during visit. Tiny presented to the hospital with progressive dyspnea and weight gain over 3 days. On admission blood pressure was noted to be elevated. He was initially given Lasix 80 mg IV with improvement in urine output and slight improvement in respiratory status. Lab was notable for stable kidney function creatinine 3.4 mg/dl other electrolyte acceptable. Hemoglobin is stable. Chest x-ray with pulmonary congestion bilateral pleural effusion. EKG showed A-fib with RVR with rate around 100's. Mild elevation in troponin noted. He was continued on 80 mg Lasix IV twice a day, at home he was getting 40 mg daily. Has stage 4 CKD with history of right nephrectomy for renal cell carcinoma, morbid obesity and hypertension. Had R BC AV fistula placed 2 weeks ago. History of renal cell carcinoma s/p right nephrectomy for renal cell carcinoma who recently developed evidence of recurrent disease in the left kidney. He started treatment with ipilimumab and nivolumab. Unfortunately, this was complicated by immunotherapy associated hepatitis and MARILEE who which has improved with steroids. LFTS normalized. Past medical history also significant for A- fib, has been on anticoagulation,TAVR He reports already feeling much better since he got the IV Lasix, denies fever chills or sweats. No cough. Allergies Allergy/AdvReac Type Severity Reaction Status Date / Time No Known Allergies Allergy Verified 09/29/23 13:46 Home Medications Medication Instructions Recorded Confirmed Type apixaban 5 mg tablet 5 mg PO BID #60 tabs 11/11/18 11/05/23 History furosemide 40 mg tablet See Rx Instructions .Route .COMPLEX 11/11/18 11/05/23 History metoprolol tartrate 25 mg tablet 25 mg PO BID #180 tabs 11/11/18 11/05/23 History multivitamin 1 tab PO DAILY 11/11/18 11/05/23 History cholecalciferol (vitamin D3) 50 2,000 unit PO DAILY #30 tabs 10/15/22 11/05/23 History mcg (2,000 unit) tablet amoxicillin 500 mg capsule 2,000 mg PO DIRECTED PRN 1 HR 07/07/23 11/05/23 History PRIOR TO DENTAL APPT. betamethasone, augmented 0.05 % 1 applic topical BID PRN Skin 07/07/23 11/05/23 History topical cream Irritation blood sugar diagnostic (OneTouch #100 ea 07/11/23 09/29/23 Rx Verio test strips) lancets 33 gauge (OneTouch Delica #100 ea 07/11/23 09/29/23 Rx Plus Lancet) pen needle, diabetic, safety 31 #100 ea 07/11/23 09/29/23 Rx gauge x 5/32" levothyroxine 200 mcg tablet 200 mcg PO QAM 08/21/23 11/05/23 History pantoprazole 40 mg tablet,delayed 40 mg PO BID #0 tabs 09/19/23 11/05/23 Rx release ferrous sulfate 325 mg (65 mg 325 mg PO DAILY 11/05/23 11/05/23 History iron) tablet (iron) prednisone 10 mg tablet 10 mg PO DAILY 11/05/23 11/05/23 History Patient History Medical History Renal cell carcinoma CKD (chronic kidney disease) stage 4, GFR 15-29 ml/min Hypertension Surgical History S/p nephrectomy Family History Mother Cancer mother - bowel Social History Smoking Status: Never smoker Hx Alcohol Use: No Hx Substance Use: No Preferred Language: Indonesian Communication Ability: Effective Pharmacy Benefits Coordinator Required: No Beliefs That Will Affect Care: None Current Living Situation: Spouse current occupational status: employed Other Information That Helps Us Care for You: No Feels Safe at Home: Yes Safety Concerns: Feels Safe At This Time Assistive Devices: None Review of Systems Review of Systems: Detailed review of system was done and pertinent positives and negatives are mentioned above. Physical Exam Constitutional: WD/WN, vitals as above + obese; no acute distress Eyes: + anicteric sclerae Neck: normal visual inspection Respiratory: normal respiratory effort; no respiratory distress and no cough Auscultation: + diminished lung sounds; no wheezes Cardiovascular: Rate/Rhythm: regular rate and regular rhythm Heart Sounds: normal S1 and normal S2 Extremities: + edema and + AV fistula (rt BC AVF with bruit) Gastrointestinal (Abdomen): Inspection/Auscultation: abdomen normal to inspection Percussion/Palpation: abdomen soft; abdomen nontender Musculoskeletal: Extremities: extremities normal to inspection Skin: no rashes, warm and dry Neurologic: no focal motor deficits and not confused Psychiatric: Orientation: alert and oriented x 3 Affect: euthymic affect Results & Data Vital Signs (Past 12 Hours) Vital Signs Temp Pulse Pulse Resp BP BP Pulse Ox 11/05/23 15:33 36.5 C 107 H 20 146/91 H 95 11/05/23 13:55 108 H 21 148/98 H 95 11/05/23 13:11 106 H 20 148/98 H 92 11/05/23 11:58 94 11/05/23 11:36 97 H 19 164/98 H 95 11/05/23 11:11 98 H 11/05/23 10:55 36.7 C 100 H 20 166/101 H 93 O2 Del Method O2 Flow Rate 11/05/23 15:33 Room Air 11/05/23 13:55 Room Air 11/05/23 13:11 Room Air 11/05/23 11:58 Room Air 0 11/05/23 11:36 Room Air 11/05/23 11:11 11/05/23 10:55 Room Air PG Care Time/CCT Total # of Minutes Spent Total Time Spent with Patient: Total time spent is greater than 50% in coordination of care (as documented) at patient's floor/unit and/or counseling patient: Coding Level of Care Code 03647 INT INP/OBS CARE 3/75MIN Diagnoses Acute kidney injury superimposed on CKD N17.9; N18.9 Pulmonary edema J81.1
[2023-11-05] MEDS: FUROSEMIDE 40 MG/4 ML VIAL IV SCH (17:48)
--- OUTSIDE RECORDS SUMMARY | 2023-11-05 18:24 | External Medical Summary | Continuity of Care Document ---
Author Name Unknown Organization [facility] Address [address] [place] [address] Phone [phone] Care Team Providers Care Per Diem Interpreter Name Role Phone Veronica Tucker MD Care Team Information Wire Puller [phone] Alfredo Timmons MD Care Team Information Wire Puller [phone] CHRISSY LEVY MD Care Team Information Receive r [phone] Veronica Tucker MD Primary Care Physician Problems [...] Description Comments Sex Unknown Tobacco Use Reviewed: 09/22/23 Never Used Smokeless T obacco ETOH Use 06/20/2023 Denies alcohol use Tobacco Use Reviewed: 09/22/23 Patient has never smok ed Recreational Drug Use 09/22/2023 Never Used Drugs Smoking Status Reviewed: 09/22/23 Patient has never sm oked Allergies and adverse reactions Description No Known Drug Allergies Medications Active Medications SIG Qnty Indications Order ing Provider Date Rosuvastatin Eowyjad51vf Tablets take 1 tablet by mouth daily at bedtime 90tabs Chrissy Levy MD 12/20/2022 Vitamin V5202vf Tablets 1 tab by mouth every day Chrissy Levy MD 12/20/2022 Aqyyqbtxbgg161gr Capsules 4 capsules by mouth 1 hour before dental procedure 4caps I25.10 hCrissy Levy MD 01/10/2022 Gzyvnajyr0zz Tablets 1 tab by mouth every day 90tabs Unknown Bsxdxbi3ux Tablets take 1 tablet by mouth twice a day (On Hold) 180tabs Chrissy Levy MD Agztdrqmyo86br Tablets 1 tabs by mouth every day, Twice a week 2 tablets 120tabs Chrissy Levy MD Metoprolol Axgwfoyq70sd Tablets 1 tab by mouth twice a day 180tabs Chrissy Levy MD Levothyroxine Rjaxcy670auw Capsules 1 tab by mouth every morning 10caps Unknown Vitamin [id number] Tablets 1 tab by mout h every day Unknown MultivitaminTablets 1 tab by mouth every day Unknown Losartan Witdfdujo394ej Tablets 1 tab by mouth every day 30tabs Alfredo Timmons MD Cpyitrvax26fk Tablets 1 tab by mouth every day ( On Hold) 30tabs Alfredo Timmons MD Lfwgikxvzo25ma Tablets 1 tab by mouth every day Unknown Wpvkvtqt99gv Tablets DR 1 tab by mouth every morning Unknown Dthevsob3vy Tablets by mouth four times a day before meals at bedtime Unknown Immunizations CPT Code Status Date Vaccine Lot # [id number] Given 01/01/2022 Moderna Covid-19 Vaccine, Bivalent 04083 Given 01/29/2021 Moderna Covid-19 Vaccine (Low Dose) 11048 Given 06/15/2020 Moderna (Covid- 19) vaccine, mRNA, LNP-S, PF, 100 mcg/ 0.5 mL 59100 Given 05/12/2020 Moderna (Covid- 19) vaccine, mRNA, LNP-S, PF, 100 mcg/ 0.5 mL 71290 Given 12/28/2019 Influenza Virus Vaccine, Quadrivalent, Split, Preservative Free 86673 Given 06/03/2019 Prevnar 13 Pneu mococcal Conjugate Vac 13 Valent For Im Use 36110 Given 01/06/2019 Influenza Virus Vaccine, Quadrivalent, Split, Preservative Free 50912 Given 07/28/2015 Pneumo 23 Pneumococcal Va ccine 2Yrs Or Older 46775 Given 10/08/2010 Tetanus Toxoid Adsorbed, For Intramuscular Use Vital Signs Date Vital Result Comment 09/22/2023 10:51am Height 73 inches 6'1" Weight 360.12 lb Weight 163.353 kg BMI (Body Mass Index) 47.5 kg/m2 BP Systolic 120 mmHg Left Arm BP Diastolic 68 mmHg Left Arm Body Temperature 97.5 F Temporal Heart Rate 100 /min Pulse Ox Respiratory Rate 20 /min O2 % BldC Oximetry 99 % Room Air 06/20/2023 11:24am Height 73 inches 6'1" Weight 361.56 lb Weight 164.005 kg BMI (Body Mass Index) 47.7 kg/m2 BP Systolic 124 mmHg Right Arm BP Diastolic 82 mmHg Right Arm Body Temperature 97.9 F Temporal Heart Rate 83 /min EKG Respiratory Rate 18 /min O2 % BldC Oximetry 96 % Room Air Procedures Date Code Description Status 09/22/2023 3078F Most Recent Diastolic BP <80 mm HG Completed 09/22/2023 3074F Most Recent Systolic Blood P ressure <130mm HG Completed 09/22/2023 3008F Body Mass Index (BMI), Docum ented (pv) Completed 06/20/2023 3079F Most Recent Diastolic BP 80- 90mm HG Completed 06/20/2023 3074F Most Recent Systolic Blood P ressure <130mm HG Completed 06/20/2023 3008F Body Mass Index (BMI), Docum ented (pv) Completed Medical Devices Description No Information Available Encounters Type Date Location Provider Dx Diagnosis Office Visit 09/22/2023 11:00a [facility] Chrissy Levy MD I10 Essential (primary) hypertension I25.10 Athscl heart disease of [place] coronary artery w/o ang pctrs I48.21 Permanent atrial fib rillation I27.20 Pulmonary hypertensi on, unspecified I34.0 Nonrheumatic mitral (valve) insufficiency I77.810 Thoracic aortic ecta jazmin E78.5 Hyperlipidemia, unsp ecified Z95.2 Presence of prosthet ic heart valve 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 E66.01 Morbid (severe) obes ity due to excess calories Z68.42 Body mass index [BMI ] 45.0-49.9, adult Office Visit 06/20/2023 11:20a [facility] Yane Levy MD I10 Essential (primary) hypertension I25.10 Athscl heart disease of [place] coronary artery w/o ang pctrs I48.21 Permanent atrial fib rillation I27.20 Pulmonary hypertensi on, unspecified I34.0 Nonrheumatic mitral (valve) insufficiency I77.810 Thoracic aortic ecta jazmin E78.5 Hyperlipidemia, unsp ecified Z95.2 Presence of prosthet ic heart valve 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 E66.01 Morbid (severe) obes ity due to excess calories Z68.42 Body mass index [BMI ] 45.0-49.9, adult Assessments Date Code Description Provider 09/22/2023 I10 Essential (primary) hyperten christina Levy MD 09/22/2023 I25.10 Atherosclerotic heart disease of [place] coronary artery without angina pectoris Chrissy Levy MD 09/22/2023 I48.21 Permanent atrial fibrillatio n Chrissy Levy MD 09/22/2023 I27.20 Pulmonary hypertension, unsp ecified Chrissy Levy MD 09/22/2023 I34.0 Nonrheumatic mitral (valve) insufficiency Chrissy Levy MD 09/22/2023 I77.810 Thoracic aortic ectasia Sahil Levy MD 09/22/2023 E78.5 Hyperlipidemia, unspecified Chrissy Levy MD 09/22/2023 Z95.2 Presence of prosthetic heart valve Chrissy Levy MD 09/22/2023 Z79.01 ad terminal 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 (current) use of a nticoagulants Chrissy Levy MD 09/22/2023 E66.01 Morbid (severe) obesity due to excess calories Chrissy Levy MD 09/22/2023 Z68.42 Body mass index [BMI] 45.0-4 9.9, adult Chrissy Levy MD 06/20/2023 I10 Essential (primary) hyperten christina Levy MD 06/20/2023 I25.10 Atherosclerotic heart disease of [place] coronary artery without angina pectoris Chrissy Levy MD 06/20/2023 I48.21 Permanent atrial fibrillatio n Chrissy Levy MD 06/20/2023 I27.20 Pulmonary hypertension, unsp ecified Chrissy Levy MD 06/20/2023 I34.0 Nonrheumatic mitral (valve) insufficiency Chrissy Levy MD 06/20/2023 I77.810 Thoracic aortic ectasia Sahil Levy MD 06/20/2023 E78.5 Hyperlipidemia, unspecified Chrissy Levy MD 06/20/2023 Z95.2 Presence of prosthetic heart valve Chrissy Levy MD 06/20/2023 Z79.01 [facility]PC (current) use of a nticoagulants Chrissy Levy MD 06/20/2023 E66.01 Morbid (severe) obesity due to excess calories Chrissy Levy MD 06/20/2023 Z68.42 Body mass index [BMI] 45.0-4 9.9, adult Chrissy Levy MD Plan of Treatment Future Appointment(s):* 01/23/2024 11:20 am - Chrissy Levy MD at [facility] Functional Status Description No Information Available Mental Status Description No Information Available Referrals Refer to Dr Reason for Referral Status Appt Derek Sherlyn Lao CRNP follow up of sleep apnea first appt can be in [place] and then [facility] Closed 06/27/[address] [facility] [address] [place] [address]
--- OUTSIDE RECORDS SUMMARY | 2023-11-05 18:24 | External Medical Summary | Continuity of Care Document ---
Author Name Unknown Organization [facility] [address] [facility] 2 Address [address] [id number] Care Team Providers Care Health Outcomes Liaison Name Role Phone Veronica Tucker Primary Care Physician [phone] [id number] Date(s): 10/31/23 - 10/31/23 [facility] [address] [facility] [address] [id number] Encounter Diagnosis Actinic keratoses(Discharge Diagnosis) - 10/31/23 Seborrheic keratoses(Discharge Diagnosis) - 10/31/23 History of melanoma(Discharge Diagnosis) - 10/31/23 Discharge Disposition: Home or Self Care Attending Physician: SUMMER Wiley Dawn M Allergies, Adverse Reactions, Alerts No Known Allergies Assessment and Plan Extracted from: Title:Dermatology Office Visit Note Author:Angela newman PA-C, Dawn M Date:10/31/23 1.Actinic keratoses NEW - ACTINIC KERATOSES - discussed precancerous potential of these lesions and reviewed options for watchful waiting with judicious sun protection vs cryotherapy. cryo x 4 2.Seborrheic keratoses - chronic and stable -SEBORRHEIC KERATOSES - discussed the likely benign and genetic nature of these lesions._ watchful waiting 3.History of melanoma Reviewed sun protection with SPF 30 or higher applied every 80 minutes and use of sun protective clothing and hat. Call with questions or concerns. Follow up 1 year. Patient in agreement with plan. Immunizations Given and Recorded Vaccine Date Status [...] 500 mg oral capsule Start: 03/12/23 9:00:00 AM EST, 4 cap, PO, As indicated, Disp# 12 cap, Refills: 3, one hour before dental and other procedures as directed Start Date: 03/12/23 Status: Ordered betamethasone dipropionate, augmented 0.05% topical cream Start: 06/17/23 12:54:00 PM EDT, See Instructions, Disp# 50 g, Refills: 2, APPLY TOPICALLY 2 TIMES ADAY TO NECK, Pharmacy: [facility] Start Date: 06/17/23 Status: Ordered calcium (as carbonate) 600 mg oral tablet Start: 08/04/23 12:30:00 PM EDT, 1 tab, PO, tid, PRN: as needed for indigestion Start Date: 08/04/23 Status: Ordered Crestor 20 mg oral tablet Start: 11/05/22 8:08:00 AM EDT, 1 tab, PO, Daily Start Date: 11/05/22 Status: Ordered Eliquis 5 mg oral tablet Start: 11/01/16 8:22:00 AM EDT, 1 tab, PO, bid Start Date: 11/01/16 Status: Ordered furosemide 40 mg oral tablet Start: 10/31/17 8:37:00 AM EDT, See Instructions, 1 tab po 4 x weekly Start Date: 10/31/17 Status: Ordered furosemide 80 mg oral tablet Start: 10/31/17 8:37:00 AM EDT, See Instructions, 1 tab 3 x weekly Start Date: 10/31/17 Status: Ordered glucosamine Start: 03/12/23 9:00:00 AM EST, See Instructions, 2000mg daily Start Date: 03/12/23 Status: Ordered Jardiance Start: 06/02/23 1:24:00 PM EDT Start Date: 06/02/23 Status: Ordered losartan Start: 11/05/22 8:07:00 AM EDT, 100 mg =, Daily Start Date: 11/05/22 Status: Ordered metoprolol tartrate Start: 02/11/20 9:25:00 AM EST, 25 mg =, PO, bid Start Date: 02/11/20 Status: Ordered multivitamin Start: 06/06/09 4:06:21 PM EDT, 1 cap, PO, Daily, Refills: 0, current medication from another provider Start Date: 06/06/09 Status: Ordered NovoLIN N FlexPen 100 units/mL subcutaneous suspension Follow scale for number of units to inject based on your prednisone dose, subcutaneously, daily in AM Start Date: 07/21/23 Status: Ordered predniSONE 50 mg oral tablet TAKE 2 TABLETS BY MOUTH EVERY DAY FOR 14 DAYS; USE WITH 10MG TAB FOR TAPER Start Date: 07/21/23 Status: Ordered sodium bicarbonate 650 mg oral tablet TAKE 2 TABLETS BY MOUTH 2 TIMES A DAY Start Date: 07/21/23 Status: Ordered Synthroid Start: 06/06/09 4:05:43 PM EDT, 175 mcg =, PO, Daily, Refills: 0, current medication from another provider Start Date: 06/06/09 Status: Ordered turmeric 500 mg oral capsule Start: 11/26/22 10:55:00 AM EDT, 1 cap, PO, bid Start Date: 11/26/22 Status: Ordered Vitamin C 1000 mg oral tablet Start: 03/12/23 9:03:00 AM EST, 1 tab, PO, Daily Start Date: 03/12/23 Status: Ordered Vitamin D3 2000 intl units oral capsule Start: 10/31/17 8:39:00 AM EDT, 1 cap, PO, Daily Start Date: 10/31/17 Status: Ordered Mental Status 10/31/23 Barriers to Learning one year None evide nt Mandatory Health Literacy Documentation Yes Health Literacy Communication Barriers N ever Primary Language Chinese Problem List Condition Confirmation Course Effective Dates Status H ealth Status Informant Renal cell cancer Confirmed Active Hematuria Confirmed Active High cholesterol Confirmed Active Hypertension Confirmed Active Hypothyroidism Confirmed Active Mediastinal adenopathy Confirmed Active Obesity Confirmed Active Renal mass, right Confirmed Active Diagnosis Diagnosis Type Effective Dates Health Status Clinical Service Informant Actinic keratoses Discharge Diagnosis 10/31/23 History of melanoma Discharge Diagnosis 10/31/23 Seborrheic keratoses Discharge Diagnosis 10/31/23 Procedures Procedure Date Related Diagnosis Body Site Status Cardiac catheterization 10/2022 C ompleted Shave biopsy 1 03/06/22 Completed Excision 2 08/10/20 Completed Shave biopsy and cauterization of skin 07/26/20 Completed Laparscopic radical nephrectomy, right 06/13/09 Completed Hand surgery, right 1974 Compl eted 1right shoulder 2malignant melanoma left side of neck Social History Social History Type Response Smoking Status Never smoked cigaret cliff Sex Male Sex Representation Male (finding) Dermatology Outpatient Note * SUMMER Wiley, Jessica Peck: PERFORM Event Display: Dermatology Outpt Note Authored Date: [id number] Chief Complaint skin check with a few scaled spots to check History of Present Illness JACOB WANG a68 year old [place] with a few scaled spots to check. The patient feels the condition is worsening . Hedenies itching, bleeding, oozing, but confirms crusting or evolving lesions. Patient has a past personal history of skin cancer: melanoma 0.2mm left neck excised shup08/10/20 Family history: none of skin cancer Patient uses sunscreen. Patient reports no history of blistering sunburns / tanning beds. Grew up in [place] 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 Physical Exam Constitutional: Generally well appearing, well developed. Appears stated age. Ears, nose, throat and mouth: Lips, teeth, gums and tongue without deformity, lesion, mass, inflammation. Eyes: Conjunctivae and lids without noted inflammation, lesion, mass, deformity or drainage. Neck: Thyroid without enlargement, tenderness to palpation or mass. Cardiovascular: Swelling of the lower extremities noted . Extremities pink, warm and dry. Extremities: Digits and nails without clubbing, cyanosis, petechiae, signs of ischemia, infectionor inflammation. Lymph: No anterior/posterior cervical lymphadenopathy, no axillary lymphadenopathy Neurological / Psychiatric: Oriented to person, place and time. Appropriate mood and affect. No notable depression, anxiety or agitation. Complete skin exam was performed today including head, neck, chest, axillae, abdomen, back, bilateral upper and bilateral lower extremities. Palpation of the scalp, inspection of hair of scalp, eyebrows and finger and toenails was performed. 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 Alternative therapies were discussed, and education on wound healing, risk of thermal injury, dyspigmentation, infection and scar formation were performed. Wound care instruction was provided. Patient was without concerns after questions answered after the procedure. Assessment/Plan 1.Actinic keratoses NEW - ACTINIC KERATOSES - discussed precancerous potential of these lesions and reviewed options for watchful waiting with judicious sun protection vs cryotherapy. cryo x 4 2.Seborrheic keratoses - chronic and stable -SEBORRHEIC KERATOSES - discussed the likely benign and genetic nature of these lesions._ watchful waiting 3.History of melanoma Reviewed sun protection with SPF 30 or higher applied every 80 minutes and use of sun protective clothing and hat. Call with questions or concerns. Follow up 1 year. Patient in agreement with plan. Problem List/Past Medical History Ongoing Hematuria High cholesterol Hypertension Hypothyroidism Mediastinal adenopathy Obesity Renal cell cancer Renal mass, right Resolved H/O blood clots Procedure/Surgical History Cardiac catheterization| Service Date: Week of 11/12/2022Shave biopsy| Service Date: 03/06/2022Excision| Service Date: 08/10/2020have biopsy and cauterization of skin| Service Date: 07/26/2020aparscopic radical nephrectomy, right| Service Date: 06/13/2009Hand surgery, right| Service Date: 1974 Medications amoxicillin(amoxicillin 500 mg oral capsule), 2000 mg= 4 cap, PO, As indicated apixaban(Eliquis 5 mg oral tablet), 5 mg= 1 tab, PO, bid ascorbic acid(Vitamin C 1000 mg oral tablet), 1000 mg= 1 tab, PO, Daily betamethasone topical(betamethasone dipropionate, augmented 0.05% topical cream), See Instructions calcium carbonate(calcium (as carbonate) 600 mg oral tablet), 600 mg= 1 tab, PO, tid, PRN cholecalciferol(Vitamin D3 2000 intl units oral capsule), 2000 Int_Unit= 1 cap, PO, Daily empagliflozin(Jardiance) furosemide(furosemide 40 mg oral tablet), See Instructions furosemide(furosemide 80 mg oral tablet), See Instructions glucosamine, See Instructions insulin isophane (NPH)(NovoLIN N FlexPen 100 units/mL subcutaneous suspension) levothyroxine(Synthroid), 175 mcg, PO, Daily losartan, 100 mg, Daily metoprolol(metoprolol tartrate), 25 mg, PO, bid multivitamin, 1 cap, PO, Daily predniSONE(predniSONE 50 mg oral tablet) rosuvastatin(Crestor 20 mg oral tablet), 20 mg= 1 tab, PO, Daily sodium bicarbonate(sodium bicarbonate 650 mg oral tablet) turmeric(turmeric 500 mg oral capsule), 500 mg= 1 cap, PO, bid Allergies NKA Social History Smoking Status Never smoked cigarettes Electronic Signature on File Electronically Reviewed/Signed by: DENNIS Salter Author Signature Dt/Tm:10/31/2023 04:40 PM Department of Family Medicine Department of Dermatology [facility] Patient Care team information Care Team Personnel Name: MD Tucker Sharon Eunice Position: Referring Member Role: Primary Care Provider Address: [address], [address] Name: MD Aguilar Stuthi P Position: Physician - Hem/Onc Member Role: Lifetime Relationship Address: [address] [place] [id number] [place] Name: MD Cosby Jay D Position: Physician - Urology Member Role: Lifetime Relationship Address: [address] [place] [id number] [place] Care Team Related Persons Name: CIERRA WANG Name: CIERRA WANG"
[2023-11-05] MEDS: APIXABAN 5 MG TABLET PO SCH (22:34)
[2023-11-05] MEDS: PANTOprazole 40 MG TAB PO SCH (22:35)
[2023-11-05] MEDS: METOPROLOL TARTRATE 25 MG TAB PO SCH (22:35)
[2023-11-05] MEDS: POTASSIUM CHLORIDE 10 MEQ TABCR PO SCH (22:36)
[2023-11-06 02:52] VITALS: RESP 18
[2023-11-06] MEDS: LEVOTHYROXINE SODIUM 200 MCG TABLET PO SCH (06:14)
[2023-11-06 07:40] LABS: Basophils # (auto) 0.06 K/uL (0.00-0.20); Basophils % (auto) 0.8 %; Eosinophils # (auto) 0.11 K/uL (0.00-0.50); Eosinophils % (auto) 1.5 %; Hemoglobin 11.9 g/dl (14.0-18.0); Immature Granulocytes # (auto) 0.07 K/uL (0.01-0.20); Immature Granulocytes % (auto) 0.9 %; Lymphocytes # (auto) 0.87 K/uL (1.20-3.40); Lymphocytes % (auto) 11.7 %; Mean Corpuscular Hgb Conc 31.3 g/dL (32.0-36.0); Mean Corpuscular Volume 92.7 fL (80.0-100.0); Mean Platelet Volume 11.1 fL (9.4-12.4); Monocytes # (auto) 0.88 K/uL (0.11-0.59); Monocytes % (auto) 11.8 %; Neutrophils # (auto) 5.44 K/uL (1.40-6.50); Neutrophils % (auto) 73.3 %; Platelet Count 165 K/uL (130-400); RDW Coefficient of Variation 17.7 % (11.5-14.5); RDW Standard Deviation 61.1 fL (36.4-46.3); White Blood Count 7.43 K/ul (4.8-10.8)
[2023-11-06 07:58] LABS: BUN Creatinine Ratio 13.2 (10-20); Calcium 9.2 mg/dl (8.6-10.3); Creatinine Clr Calc Pharmacy 32.8 ml/min; Est GFR (African American) 19.9 ml/min; Est GFR (Non-African American) 17.2 ml/min; Magnesium 2.1 mg/dl (1.7-2.4)
[2023-11-06 07:59] VITALS: O2SAT 94
[2023-11-06] MEDS: predniSONE 10 MG TABLET PO SCH (08:11)
[2023-11-06] MEDS: MULTIVITAMIN TAB PO SCH (08:11)
[2023-11-06] MEDS: BUMETANIDE 1 MG TAB PO SCH (09:32)
[2023-11-06 10:12] LABS: Troponin I High Sensitivity 56.5 pg/ml (0-20)
--- NOTE | 2023-11-06 11:06 | Nephrology Progress Note ---
Date of Service November 06, 2023 Assessment & Plan (1) Acute kidney injury superimposed on CKD: (2) Pulmonary edema: Plan Stage IV CKD baseline creatinine lately around 3.3-3.5 mg/dl with history of right nephrectomy, hypertension, morbid obesity. Previously was on immunotherap y which was stopped because of complication with MARILEE and acute hepatitis which currently improved on steroid. Admitted with progressive weight gain and dyspnea over the last few days. At home he was on Lasix 40 mg daily, received Lasix 80 mg IV one-time and then continued on twice a day. Noted increased urine output and slight improvement in respiratory status. Volume status improved, overall feels well, asymptomatic. Responding to diuretics. --Continue on Bumex 2 mg daily. He is already scheduled to have lab Friday. -- Right arm nephrology precaution --Dose medications for EGFR less than 30 -- Okay to be discharged on oral Bumex with outpatient lab monitoring. Admission and Anticipated Discharge Date Admission Date: November 05, 2023 Subjective Don was seen and evaluated this morning. Overall he reports feeling great, no shortness of breath or chest pain, lower extremity edema improved significantly. Reports increased urine output with current dose of diuretics. Kidney function staying stable, electrolyte acceptable. Review of Systems Review of Systems: Delivery of system was otherwise unremarkable. Physical Exam Constitutional: WD/WN, vitals as above + obese; no acute distress Eyes: + anicteric sclerae Neck: normal visual inspection Respiratory: Auscultation: + diminished lung sounds; no wheezes Cardiovascular: Rate/Rhythm: regular rhythm Heart Sounds: normal S1 and normal S2 Extremities: + edema and + AV fistula (rt BC AVF with bruit) Musculoskeletal: Extremities: extremities normal to inspection Skin: no rashes, warm and dry Neurologic: no focal motor deficits and not confused Psychiatric: Orientation: alert and oriented x 3 Affect: euthymic affect Results & Data Vital Signs (Past 12 Hours) Vital Signs Temp Pulse Pulse Resp BP Pulse Ox O2 Del Method 11/06/23 07:58 36.5 C 83 18 148/89 H 94 Room Air 11/06/23 06:48 91 H 11/06/23 02:51 36.7 C 93 H 18 140/106 H 96 CPAP 11/05/23 23:52 98 H 11/05/23 23:26 36.8 C 97 H 20 150/95 H 93 Room Air 11/05/23 23:10 Room Air PG Care Time/CCT Total # of Minutes Spent Total Time Spent with Patient: Total time spent is greater than 50% in coordination of care (as documented) at patient's floor/unit and/or counseling patient: Coding Level of Care Code 92414 SUB INP/OBS CARE 2/35MIN Diagnoses Acute kidney injury superimposed on CKD N17.9; N18.9 Pulmonary edema J81.1
[2023-11-06 11:27] VITALS: BP 116/77; PULSE 94; TEMP 97.9
--- NOTE | 2023-11-06 12:50 | Discharge Summary ---
Discharge Summary Date of Service November 06, 2023 Principal Dx & Hospital Course #1 = Principal Diagnosis (1) Heart failure with preserved ejection fraction: Presented with progressive dyspnea, tachypnea, pulm edema and small effusions on CXR, weight gain, hypertension and tachycardia With preserved ejection fraction on last echo as per recent Cardiology notes Troponin is elevated at 61 then 56, however is without chest pain or EKG changes and suspect this may be 2/2 poor clearance with CKD stage 4-5 At home he is compliant with lasix and watches sodium intake but was not aware he should be on a fluid restriction has CKD stage 4-5 and just had AVF placed-CKD contributing to volume overload as well Received IV lasix 2 doses and had improvement, weight down 2.4 kg, I/O net neg 2.1L, renal function stable from previous with slubber operator 3.4 Seen by Melissa, recommends switching lasix to Bumex 2mg po daily, f/u labs on Friday with Nephro I will also increase his metoprolol to 50mg po bid for improved rate control as his Afib rates are 90s at rest and 150s with minimal exertion (2) Atrial fibrillation: Permanent Afib, cardioverted twice previously and went back into Afib-now on rate control strategy rates not optimal as above increase metoprolol to 50mg po bid continue ELiquis (3) Hypertension: BPs elevated on arrival, improved with IV diuresis increasing metoprolol as well (4) Chronic kidney disease, stage IV (severe): Baseline creatinine around 34. Creatinine 3.44 on admission and stable after IV diuresis With AVF placement 10/20 in anticipation of eventual progression to dialysis anticipated Previously on losartan/dapagliflozin which were stopped due to worsening renal function. f/u BMP Friday and f/u with Nephro (5) Renal cell carcinoma: Stage IV left renal cell carcinoma, with mets to lungs S/p nephrectomy, distant for RCC of other kidney Currently on maintenance nivolumab. Prior immunotherapy discontinued due to hepatitis as noted has f/u with Oncology next week (6) S/P TAVR (transcatheter aortic valve replacement): noted (7) Hypothyroidism: Continue Synthroid Plan DVT prophylaxis: Eliquis Dispo-stable for dc to home Discussed care with Nephrology CODE STATUS: Full code Notes For Next Care Provider Check BMP Friday Medication Changes From Visit Discontinued lasix and started Bumex 2mg po daily Increased metoprolol to 50mg po bid Admission HPI Per Admitting Provider Chase Guadalupe (Tiny) is a 68-year-old male with a past medical history of A-fib on anticoagulation, TAVR, status post nephrectomy due to renal cell carcinoma, CKD who presents with progressive dyspnea over 3 days. No fever chills or sweats. No cough. No dyspnea at rest however has significant dyspnea on attempted exertion. No nausea/vomiting/diarrhea/constipation. No chest pain with his dyspnea. EKG on ER arrival is A-fib RVR rate [address] segment changes, low amplitude equivocal T wave in aVL otherwise no territorial T wave inversions/changes Chest x-ray is with pulmonary edema and bilateral effusions consistent with volume overload Per patient: Chase seen at the bedside. He reports over the last week he has had progressive shortness of breath. Endorses orthopnea. Has not had any chest pain chest pressure palpitations. No lightheadedness dizziness syncope or presyncope. He has noted progressive dyspnea and he can short of breath even walking back from the bathroom or trying to speak. He feels greatly improved following Lasix in the ER, and notes that he can now talk in full sentences and at least walk to the bathroom and back without being short of breath. He notes he has not had any salt indiscretion, does not cook or use salt. He has noticed that his urine in the last week has decreased in volume. He typically pees "a couple of inches the thyroid a measure "twice a day however in the last week has had small amounts of very dark urine production. No pain/dysuria/fever. No flank pain. He has been taking his Lasix as directed. He did have his fistula placed in anticipation of ESRD at the end of September. Site is well-healing. He notes he has a single kidney, and a history of renal carcinoma. He is no longer on any Biologics/immunotherapy agents due to history of reaction and hepatitis he now only takes prednisone 10 mg daily. Medical History: Reviewed Medications: Reviewed Surgical History: Reviewed Family history: Reviewed Allergies: Reviewed Social History: No tobacco/etoh Code Status: Full Discharge Exam Constitutional WD/WN, vitals as above + morbidly obese Respiratory normal respiratory effort, lungs clear to auscultation Cardiovascular Rate/Rhythm: regular rate and + irregularly irregular Extremities: + edema (2+ edema right leg,1+ left leg) Psychiatric A+Ox3, euthymic affect Discharge Plan Discharge Items Patient Disposition: Home - Self-Care Reason For Visit: PULMONARY EDEMA, PROGRESSIVE CKD Discharge Diagnosis: Acute on chronic heart failure with preserved ejection fraction Activity: Resume your previous activity Non-emergency contact: Primary Care Provider, Slag Mixer and Gynaecological Oncologist Call non-emergency contact if: you have any medication questions and your symptoms worsen Follow-up/Referrals: Veronica Tucker MD [Primary Care Provider] - (Follow up within 1-2 weeks) Diet: Low Sodium (2gm) Fluids: 1500ml (6 cups) Addtl Attending Provider Instructions: You were admitted with fluid overload from heart failure. You improved with IV lasix and your water pill will be changed from lasix to Bumex. Your heart rates with your atrial fibrillation are generally elevated in the 90s at rest and up to the 150s with minimal exertion. Your metoprolol dose was increased to 50mg twice daily. Please monitor your heart rate and blood pressures at home with this change and follow up with your Slag Mixer as scheduled. Please have blood work on Friday as planned with Nephrology. Call your Primary Care doctor if any of the following symptoms or problems start or get worse: * Shortness of breath or difficulty breathing * Wake up at night short of breath * Chest pain * Cough * Swelling of your hands, feet, or legs * More fatigued or tired with your normal activity * Palpitations - sudden fast heart beats WEIGHT * Weigh yourself every morning after using the bathroom. * Use the same scale. * Wear the same amount of clothing. * Write your weight down on a chart. * Call your Primary Care doctor if you gain more than 2-3 pounds in 1-2 days. MEDICATIONS * Use this discharge instruction sheet for medication instructions. * Take your medications at the time your doctor ordered. * Do not skip a dose of your medicines. * If you miss a dose of medicine, take it as soon as possible, but DO NOT DOUBLE A DOSE. * Read your medicine information when you get home. * Know all of the side effects of your medicine. If in doubt, ask your pharmacist * Call your Primary Care doctor's office if you have any side effects. * Be sure all of your doctors know what medicine and herbs you take (including cold, flu, and herbal medicine). Take the following with you to your follow-up doctor appointments: * Weight Chart * Medication List * List of questions Do not drink excessive alcohol, beer or wine. Pending Studies at Discharge: No Stand-Alone Forms: My [facility] Viewpoints, Smoking Cessation Medications and DC Order Prescriptions: New metoprolol tartrate 50 mg tablet 50 mg PO BID Qty: 60 0RF bumetanide 2 mg tablet 2 mg PO QAM Qty: 30 0RF metoprolol tartrate 50 mg tablet 50 mg PO BID Qty: 180 0RF bumetanide 2 mg tablet 2 mg PO QAM Qty: 90 0RF Continued apixaban 5 mg tablet 5 mg PO BID Qty: 60 Rx Instructions: PER PT "TOOK TODAY, 09/16/23, TOLD TO STOP TAKING FROM NOW ON". multivitamin tablet 1 tab PO DAILY cholecalciferol (vitamin D3) 50 mcg (2,000 unit) tablet 2,000 unit PO DAILY Qty: 30 levothyroxine 200 mcg tablet 200 mcg PO QAM pantoprazole 40 mg Tablet,Delayed Release (Dr/Ec) 40 mg PO BID Qty: 0 0RF prednisone 10 mg tablet 10 mg PO DAILY ferrous sulfate [iron] 325 mg (65 mg iron) Tablet 325 mg PO DAILY amoxicillin 500 mg capsule 2,000 mg PO DIRECTED PRN (Reason: 1 HR PRIOR TO DENTAL APPT.) betamethasone, augmented 0.05 % cream 1 applic TOPICAL BID PRN (Reason: Skin Irritation) (DME) pen needle, diabetic, safety 31 gauge x 5/32" needle See Rx Instructions .Route Qty: 100 0RF Rx Instructions: to inject insulin 1x a day (DME) OneTouch Verio test strips Strip See Rx Instructions .Route Qty: 100 1RF Rx Instructions: check blood sugar 3x a day (DME) lancets [OneTouch Delica Plus Lancet] 33 gauge misc See Rx Instructions .Route Qty: 100 1RF Rx Instructions: to check blood sugar 3x a day Discontinued metoprolol tartrate 25 mg tablet 25 mg PO BID Qty: 180 furosemide 40 mg tablet See Rx Instructions .ROUTE .COMPLEX Hold Instructions: Resume on 08/09/23. until resumed by Dr. Timmons Patient Comments: 40 mg PO take 2 tablets every Sun. fri. fri. and take 1 tablet every other day Rx Instructions: Take 80mg by mouth on Fri/Fri/Fri and 40mg by mouth all other days Discharge Orders: Discharge Order- CHF (Routine); Ordered 11/06/23 Ordered By: Ayana Fletcher Admission Data Admit Date/Time: 11/05/23 14:05 Attending Provider: Ayana Fletcher Admit Provider: Glen Yeboah Primary Care Provider: Veronica Tucker Other Providers: Glen Yeboah; Ronit Lawson Hospital Stay Data Consultations 11/05/23 13:36 ED Decision to Admit Stat 11/05/23 15:26 Consult Nephrology Routine Pending Results Patient Have Any Pending Studies at Discharge: No Discharge Instructions Given to Patient (Per Discharging Provider) You were admitted with fluid overload from heart failure. You improved with IV lasix and your water pill will be changed from lasix to Bumex. Your heart rates with your atrial fibrillation are generally elevated in the 90s at rest and up to the 150s with minimal exertion. Your metoprolol dose was increased to 50mg twice daily. Please monitor your heart rate and blood pressures at home with this change and follow up with your Slag Mixer as scheduled. Please have blood work on Friday as planned with Nephrology. Call your Primary Care doctor if any of the following symptoms or problems start or get worse: * Shortness of breath or difficulty breathing * Wake up at night short of breath * Chest pain * Cough * Swelling of your hands, feet, or legs * More fatigued or tired with your normal activity * Palpitations - sudden fast heart beats WEIGHT * Weigh yourself every morning after using the bathroom. * Use the same scale. * Wear the same amount of clothing. * Write your weight down on a chart. * Call your Primary Care doctor if you gain more than 2-3 pounds in 1-2 days. MEDICATIONS * Use this discharge instruction sheet for medication instructions. * Take your medications at the time your doctor ordered. * Do not skip a dose of your medicines. * If you miss a dose of medicine, take it as soon as possible, but DO NOT DOUBLE A DOSE. * Read your medicine information when you get home. * Know all of the side effects of your medicine. If in doubt, ask your pharmacist * Call your Primary Care doctor's office if you have any side effects. * Be sure all of your doctors know what medicine and herbs you take (including cold, flu, and herbal medicine). Take the following with you to your follow-up doctor appointments: * Weight Chart * Medication List * List of questions Do not drink excessive alcohol, beer or wine. Total Time Total Time Spent Total Time Spent (In Minutes): 45 min Total Time Includes: Examination of the Patient, Discharge Planning, Medication Reconciliation and Communication With Other Providers Coding Level of Care Code 21919 INP/OBS DISCH >30 MIN Diagnoses Heart failure with preserved ejection fraction I50.30 Atrial fibrillation I48.91 Atrial fibrillation type: unspecified Hypertension I10 Chronic kidney disease, stage IV (severe) N18.4 Renal cell carcinoma C64.9 S/P TAVR (transcatheter aortic valve replacement) Z95.2 Hypothyroidism E03.9
== END 2023-11-06 13:09 | disposition home or self-care (01) | DRG 291 ==
LOC: ED 10:53 → SUATTDRO 14:05 → 2E 14:05 → INTOOBSV 14:05 → 2E 14:52

== ENCOUNTER 2023-11-17 15:28 | Inpatient (IN) ==
[2023-11-17 16:53] LABS: Basophils # (auto) 0.03 K/uL (0.00-0.20); Basophils % (auto) 0.3 %; Eosinophils # (auto) 0.02 K/uL (0.00-0.50); Eosinophils % (auto) 0.2 %; Hematocrit (blood only) 38.9 % (42.0-52.0); Hemoglobin 12.2 g/dl (14.0-18.0); Immature Granulocytes # (auto) 0.06 K/uL (0.01-0.20); Immature Granulocytes % (auto) 0.6 %; Lymphocytes # (auto) 0.63 K/uL (1.20-3.40); Lymphocytes % (auto) 6.1 %; Mean Corpuscular Hemoglobin 28.8 pg (25.0-34.0); Mean Corpuscular Hgb Conc 31.4 g/dL (32.0-36.0); Mean Corpuscular Volume 91.7 fL (80.0-100.0); Mean Platelet Volume 11.6 fL (9.4-12.4); Monocytes # (auto) 0.75 K/uL (0.11-0.59); Monocytes % (auto) 7.2 %; Neutrophils # (auto) 8.87 K/uL (1.40-6.50); Neutrophils % (auto) 85.6 %; Platelet Count 170 K/uL (130-400); RDW Coefficient of Variation 16.9 % (11.5-14.5); RDW Standard Deviation 57.2 fL (36.4-46.3); Red Blood Count 4.24 M/uL (4.70-6.10); White Blood Count 10.36 K/ul (4.8-10.8)
--- NOTE | 2023-11-17 17:09 | XRay Report ---
XR chest 1V not portable HISTORY: Chest pain, nonspecific COMPARISON: Chest 11/05/2023. FINDINGS: There are low lung volumes. No pneumothorax. The heart remains enlarged. Mild interstitial pulmonary edema and small bilateral pleural effusions persist. Patchy bibasilar densities are again n oted. This may represent atelectasis. A superimposed pneumonia would be difficult to exclude. IMPRESSION: 1. No significant change in the cardiomegaly, mild pulmonary edema, and small bilateral pleural effus ions. 2. Patchy bibasilar densities persist. ACT 112: Negative or not required by law. Electronically signed by: David Moffett M.D. 11/17/2023 5:08 PM
[2023-11-17 17:12] LABS: Alanine Aminotransferase 39 U/L (7-52); Albumin Globulin Ratio 1.4 (0.9-2); Albumin Level 3.6 gm/dl (3.4-5.0); Alkaline Phosphatase 88 U/L (34-104); Anion Gap 8 (3-11); Aspartate Aminotransferase 29 U/L (13-39); BUN Creatinine Ratio 15.4 (10-20); Bilirubin,Total 0.8 mg/dl (0.2-1.0); Blood Urea Nitrogen 54 mg/dl (6-23); Calcium 9.6 mg/dl (8.6-10.3); Carbon Dioxide 26 mmol/L (21-32); Chloride 108 mmol/L (98-107); Est GFR (African American) 19.3 ml/min; Est GFR (Non-African American) 16.7 ml/min; Globulin 2.6 gm/dl (2.5-4.0); Glucose 140 mg/dl (70-99(Fasting)); Potassium 4.2 mmol/L (3.5-5.1); Sodium 142 mmol/L (136-145); Total Protein 6.2 gm/dl (6.0-8.3)
[2023-11-17] MEDS: FUROSEMIDE 40 MG/4 ML VIAL IV ONE (17:15)
--- NOTE | 2023-11-17 17:18 | Emergency Department Note ---
Impression & Plan Pulmonary edema, Elevated troponin I level, Hypoxia ED Provider Note NAME: JACOB WANG AGE: 68 SEX: M : 1955 ARRIVES VIA: Walk-In INFORMANT: Patient, ED PROVIDER(S): Lazarus Fierro DO CHIEF COMPLAINT: Shortness of breath HPI: The patient is a 68-year-old male who presented to the emergency department for an evaluation of shortness of breath and fluid overload. The patient has a history of CHF in the past. He recently had his medications changed from Lasix to Bumex. Has been taking that medication for approximately 2 weeks. He is been compliant with outpatient medications but over the last 24 hours he did notice that he was having some shortness of breath especially with lying flat as well as exertion. ROS: See above HPI for pertinent positives & negatives. A total of 10 systems reviewed and were otherwise negative. PAST MEDICAL HISTORY: See Below PAST SURGICAL HISTORY: See Below FAMILY HISTORY: See Below SOCIAL HISTORY: See Below HOME MEDICATIONS: See Below ALLERGIES: See Below VITALS: See Below PHYSICAL EXAMINATION: GENERAL: Patient is awake alert in no acute distress patient is resting comfortably and showing no signs of anxiety EYES: The conjunctivae are clear. The pupils are round and reactive. EARS, NOSE, MOUTH AND THROAT: The nose is without any evidence of any deformity. Mucous membranes are moist. Tongue is midline. NECK: The neck is nontender and supple. RESPIRATORY: Diminished breath sounds are noted throughout. There were rales especially at the right base. There was mild conversational dyspnea. CARDIOVASCULAR: Irregular rate with regular rhythm was noted. There is no definite murmur. GASTROINTESTINAL: The abdomen is soft. Abdomen is nontender. MUSCULOSKELETAL/EXTREMITIES: There is no evidence of gross deformity full range of motion is noted in the hips and shoulders. SKIN: Pedal edema was noted bilaterally. NEUROLOGIC: Patient is awake alert and oriented x3 MEDICAL DECISION MAKING: The patient is a 68-year-old male who presented to the emergency department for an evaluation of difficulty breathing. The patient has a history of pulmonary edema. The patient recently was switched from Lasix to Bumex. He does have a history of kidney insufficiency at baseline. The patient was having episodes of hypoxia with any exertion. I discussed the patient's laboratory and radiographic studies with him. Given his abnormal vital signs I discussed his condition with the on-call [facility] hospitalist. They have agreed to evaluate the patient in the emergency department. The patient was treated with IV Lasix with good results. Triage Nursing notes reviewed. Prior medical records reviewed Vital Signs: reviewed and remarkable for hypoxia. Differential diagnosis: Reactive airway disease, pneumonia, pneumothorax, COPD, CHF, infections, cardiac ischemia, pulmonary embolism, musculoskeletal, gastrointestinal, as well as other pathologies. ER treatment provided: See below Diagnostics interpreted by me: ECG: EKG was obtained in the emergency department. My interpretation is atrial fibrillation at 92 bpm. There was no acute ST segment abnormalities noted. There is no ectopy. This was compared to a tracing from November 05, 2023. No changes were noted. Cardiac Monitoring: An order was placed for continuous cardiac monitoring. The monitor shows a rate of 93 bpm with atrial fibrillation. Laboratory studies: As stated above and show below. Imaging studies: See below. Radiographic imaging was reviewed by myself Consultation(s): [facility] Past Med/Surg History Problem List (Updated 11/18/23 @ 00:02 by Lazarus Fierro DO) Hypoxia (Acute) Elevated troponin I level (Acute) Pulmonary edema (Acute) CKD (chronic kidney disease) (Acute) Pulmonary edema (Acute) Acute dyspnea (Acute) Acute GI bleeding (Acute) Acute blood loss anemia Immunotherapy High anion gap metabolic acidosis Acute kidney injury superimposed on CKD (Acute) Elevated LFTs (Acute) Hyperglycemia Hypothyroidism (Acute) Hypercholesterolemia (Acute) Medical History Chronic diastolic CHF (congestive heart failure) Chronic kidney disease, stage IV (severe) Atrial fibrillation Coagulopathy SARAH (obstructive sleep apnea) Heart failure with preserved ejection fraction Renal cell carcinoma CKD (chronic kidney disease) stage 4, GFR 15-29 ml/min Hypertension Surgical History S/P TAVR (transcatheter aortic valve replacement) S/p nephrectomy Family History Mother Cancer mother - bowel Social History Smoking Status: Never smoker Do You Dip or Chew Tobacco: No; Hx Alcohol Use: No Hx Substance Use: No Preferred Language: Comoran Communication Ability: Effective Lens Mold 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 Required: No Beliefs That Will Affect Care: None Current Living Situation: Spouse current occupational status: employed Feels Safe at Home: Yes Safety Concerns: Feels Safe At This Time Assistive Devices: None Allergies Allergies Allergy/AdvReac Type Severity Reaction Status Date / Time No Known Allergies Allergy Verified 09/29/23 13:46 Home Meds Home Medications Medication Instructions Recorded Confirmed apixaban 5 mg tablet 5 mg PO BID #60 tabs 11/11/18 11/17/23 multivitamin 1 tab PO DAILY 11/11/18 11/17/23 cholecalciferol (vitamin D3) 50 2,000 unit PO DAILY #30 tabs 10/15/22 11/17/23 mcg (2,000 unit) tablet amoxicillin 500 mg capsule 2,000 mg PO DIRECTED PRN 1 HR 07/07/23 11/17/23 PRIOR TO DENTAL APPT. betamethasone, augmented 0.05 % 1 applic topical BID PRN Skin 07/07/23 11/17/23 topical cream Irritation levothyroxine 200 mcg tablet 200 mcg PO QAM 08/21/23 11/17/23 ferrous sulfate 325 mg (65 mg 325 mg PO DAILY 11/05/23 11/17/23 iron) tablet (iron) prednisone 10 mg tablet 10 mg PO DAILY 11/05/23 11/17/23 pantoprazole 40 mg tablet,delayed 40 mg PO QAM 11/17/23 11/17/23 release Previous Rx's Medication Instructions Recorded blood sugar diagnostic (OneTouch #100 ea 07/11/23 Verio test strips) lancets 33 gauge (OneTouch Delica #100 ea 07/11/23 Plus Lancet) pen needle, diabetic, safety 31 #100 ea 07/11/23 gauge x 5/32" bumetanide 2 mg tablet 2 mg PO QAM #30 tabs 11/06/23 metoprolol tartrate 50 mg tablet 50 mg PO BID #60 tabs 11/06/23 Results & Data (ED) Vital Signs Vital Signs - 24 hr 11/17/23 15:29 11/17/23 16:40 11/17/23 16:47 Temperature 36.5 C Temperature Source Temporal Artery Scan Pulse Rate 93 H 106 H Pulse Rate [Apical] Pulse Rate from SpO2 Sensor Respiratory Rate 16 Respiratory Effort / Characteristics Non-Labored Spontaneous Respiratory Depth Normal Blood Pressure 156/102 H Blood Pressure [Left Arm] Blood Pressure Mean 120 Blood Pressure Mean [Left Arm] Pulse Oximetry 94 84 L Oxygen Delivery Method Room Air Nasal Cannula Oxygen Flow Rate 0 Sepsis Recent Fever Within 48 Hours No Sepsis New/Unexplained Change in Mental Status No Sepsis Action Taken by Nursing No Action Required Oxygen Flow Rate - Titration 2 Pulse Oximetry Post Tiitration 96 11/17/23 16:52 11/17/23 17:00 11/17/23 17:03 Temperature Temperature Source Pulse Rate 105 H Pulse Rate [Apical] 89 Pulse Rate from SpO2 Sensor 106 H Respiratory Rate 32 H 26 H Respiratory Effort / Characteristics Respiratory Depth Blood Pressure 139/92 Blood Pressure [Left Arm] 157/123 H Blood Pressure Mean 97 Blood Pressure Mean [Left Arm] 134 Pulse Oximetry 97 97 Oxygen Delivery Method Nasal Cannula Nasal Cannula Oxygen Flow Rate 2 2 Sepsis Recent Fever Within 48 Hours Sepsis New/Unexplained Change in Mental Status Sepsis Action Taken by Nursing Oxygen Flow Rate - Titration Pulse Oximetry Post Tiitration 11/17/23 17:30 11/17/23 17:30 11/17/23 17:57 Temperature Temperature Source Pulse Rate 104 H 86 Pulse Rate [Apical] Pulse Rate from SpO2 Sensor 105 H 86 Respiratory Rate 30 H 30 H Respiratory Effort / Characteristics Respiratory Depth Blood Pressure 136/105 H Blood Pressure [Left Arm] Blood Pressure Mean 126 Blood Pressure Mean [Left Arm] Pulse Oximetry 98 97 Oxygen Delivery Method Nasal Cannula Nasal Cannula Oxygen Flow Rate 2 2 Sepsis Recent Fever Within 48 Hours Sepsis New/Unexplained Change in Mental Status Sepsis Action Taken by Nursing Oxygen Flow Rate - Titration Pulse Oximetry Post Tiitration 11/17/23 18:00 11/17/23 18:27 11/17/23 18:31 Temperature Temperature Source Pulse Rate 94 H Pulse Rate [Apical] Pulse Rate from SpO2 Sensor 88 Respiratory Rate 27 H Respiratory Effort / Characteristics Respiratory Depth Blood Pressure 142/92 H 151/121 H Blood Pressure [Left Arm] Blood Pressure Mean 112 133 Blood Pressure Mean [Left Arm] Pulse Oximetry 98 Oxygen Delivery Method Nasal Cannula Oxygen Flow Rate 2 Sepsis Recent Fever Within 48 Hours Sepsis New/Unexplained Change in Mental Status Sepsis Action Taken by Nursing Oxygen Flow Rate - Titration Pulse Oximetry Post Tiitration 11/17/23 18:31 11/17/23 18:33 Temperature Temperature Source Pulse Rate 103 H Pulse Rate [Apical] Pulse Rate from SpO2 Sensor 108 H Respiratory Rate 23 Respiratory Effort / Characteristics Respiratory Depth Blood Pressure 151/121 H Blood Pressure [Left Arm] Blood Pressure Mean 133 Blood Pressure Mean [Left Arm] Pulse Oximetry 99 Oxygen Delivery Method Nasal Cannula Oxygen Flow Rate 2 Sepsis Recent Fever Within 48 Hours Sepsis New/Unexplained Change in Mental Status Sepsis Action Taken by Nursing Oxygen Flow Rate - Titration Pulse Oximetry Post Tiitration Home Medications Current Medication List: was personally reviewed by me Laboratory Data Attestation: I reviewed the patient's lab results. 11/17/23 16:27 11/17/23 16:27 Lab Results 11/17/23 Range/Units 16:27 WBC 10.36 (4.8-10.8) K/ul RBC 4.24 L (4.70-6.10) M/uL Hgb 12.2 L (14.0-18.0) g/dl Hct 38.9 L (42.0-52.0) % MCV 91.7 (80.0-100.0) fL MCH 28.8 (25.0-34.0) pg MCHC 31.4 L (32.0-36.0) g/dL RDW Std Deviation 57.2 H (36.4-46.3) fL RDW Coeff of Nick 16.9 H (11.5-14.5) % Plt Count 170 (130-400) K/uL MPV 11.6 (9.4-12.4) fL Immature Gran % (Auto) 0.6 % Neut % (Auto) 85.6 % Lymph % (Auto) 6.1 % Elk % (Auto) 7.2 % Eos % (Auto) 0.2 % Baso % (Auto) 0.3 % Neut # (Auto) 8.87 H (1.40-6.50) K/uL Lymph # (Auto) 0.63 L (1.20-3.40) K/uL Elk # (Auto) 0.75 H (0.11-0.59) K/uL Eos # (Auto) 0.02 (0.00-0.50) K/uL Baso # (Auto) 0.03 (0.00-0.20) K/uL Immature Gran # (Auto) 0.06 (0.01-0.20) K/uL PT 11.7 (9.0-12.0) Seconds INR 1.1 (0.9-1.1) APTT 34 H (21-31) Seconds PTT Ratio 1.3 Sodium 142 (136-145) mmol/L Potassium 4.2 (3.5-5.1) mmol/L Chloride 108 H (98-107) mmol/L Carbon Dioxide 26 (21-32) mmol/L Anion Gap 8 (3-11) BUN 54 H (6-23) mg/dl Creatinine 3.50 H (0.6-1.4) mg/dl Est Cr Clr Drug Dosing Not Reportable Est GFR ( Amer) 19.3 ml/min Est GFR (Non-Af Amer) 16.7 ml/min BUN/Creatinine Ratio 15.4 (10-20) Glucose 140 H (70-99(Fasting)) mg/dl Calcium 9.6 (8.6-10.3) mg/dl Total Bilirubin 0.8 (0.2-1.0) mg/dl AST 29 (13-39) U/L ALT 39 (7-52) U/L Alkaline Phosphatase 88 (34-104) U/L Troponin I High Sens 58.4 H* (0-20) pg/ml B-Natriuretic Peptide 400 H (0-100) pg/ml Total Protein 6.2 (6.0-8.3) gm/dl Albumin 3.6 (3.4-5.0) gm/dl Globulin 2.6 (2.5-4.0) gm/dl Albumin/Globulin Ratio 1.4 (0.9-2) Administered Medications Apixaban (Apixaban 5 Mg Tablet) 5 mg PO BID [facility] Stop: 12/17/23 21:59 Last Admin: 11/17/23 22:04 Dose: 5 mg Documented By: TILA Metoprolol Tartrate (Metoprolol Tartrate 50 Mg Tab) 50 mg PO BID [facility] Stop: 12/17/23 21:59 Last Admin: 11/17/23 22:03 Dose: 50 mg Documented By: TILA Discontinued Medications Furosemide (Furosemide 40 Mg/4 Ml Vial) 60 mg IV ONE ONE Stop: 11/17/23 17:02 Last Admin: 11/17/23 17:15 Dose: 60 mg Documented By: AMOS Pantoprazole Sodium (Pantoprazole 40 Mg Tab) 40 mg PO BID [facility] Stop: 12/17/23 21:59 Last Admin: 08/26/24 22:04 Dose: Not Given Documented By: Liv Imaging Data Attestation: I personally reviewed and interpreted this imaging study as follows: My Impression: 1 view chest x-ray was obtained in the emergency department. My interpretation is cardiomegaly with pulmonary vascular congestion, final report below. Radiologist's Impression: Chest X-Ray 11/17/23 15:34 XR chest 1V not portable HISTORY: Chest pain, nonspecific COMPARISON: Chest 11/05/2023. FINDINGS: There are low lung volumes. No pneumothorax. The heart remains enlarged. Mild interstitial pulmonary edema and small bilateral pleural effusions persist. Patchy bibasilar densities are again noted. This may represent atelectasis. A superimposed pneumonia would be difficult to exclude. IMPRESSION: 1. No significant change in the cardiomegaly, mild pulmonary edema, and small bilateral pleural effusions. 2. Patchy bibasilar densities persist. ACT 112: Negative or not required by law. Electronically signed by: David Moffett M.D. 11/17/2023 5:08 PM Discharge Plan Visit Data Chief Complaint: Shortness of Breath/Dyspnea Stated Complaint: SOB, COUGHING ED Provider: Lazarus Fierro Discharge Problem: Pulmonary edema, Elevated troponin I level, Hypoxia Patient Disposition: Admitted As Inpatient Discharge Instructions Interventions: ED Discharge Assessment Last Done: 11/17/23 20:39 Discharge Problem: Pulmonary edema Qualifiers: Chronicity: acute Qualified Code(s): J81.0 - Acute pulmonary edema
[2023-11-17 17:26] LABS: Troponin I High Sensitivity 58.4 pg/ml (0-20)
[2023-11-17 17:43] LABS: INR 1.1 (0.9-1.1); Partial Thromboplastin Ratio 1.3; Partial Thromboplastin Time 34 Seconds (21-31); Prothrombin Time 11.7 Seconds (9.0-12.0)
--- NOTE | 2023-11-17 19:53 | History & Physical Report ---
Date of Service November 17, 2023 Assessment & Plan (1) Pulmonary edema: (2) CKD (chronic kidney disease): (3) Hypothyroidism: (4) Atrial fibrillation: (5) SARAH (obstructive sleep apnea): (6) Renal cell carcinoma: (7) Hypertension: Plan 68-year-old male with a past medical history of A-fib on anticoagulation, TAVR, status post nephrectomy due to renal cell carcinoma, CKD stage 4 Pulmonary edema 2/2 to CKD - Admit to Med Surg/ Telemetry - Recent change on diuretics, lasix to Bumex 2 mg daily. No change on weight - Hypertensive, on nasal cannula 2L - CXC: mild pulmonary edema, and small bilateral pleural effusions - Good urine output - Cr: 3.50, K: 4.2 - Cr Baseline: 3.3-3.5 mg/dl - IV lasix 60 mg once on ED - Volume Status improved after IV diuretics - Consult Nephrology placed - continue Bumex 2mg IV am - CMP, Mag AM Stage IV left renal carcinoma - S/p Nephrectomy - Currently on maintenance nivolumab. Prior immunotherapy discontinued due to hepatitis as noted - Prednisone 10 mg for Autoimmune hepatitis Atrial fibrillation - Permanent - Metoprolol tartrate 50 mg BID - Eliquis 5 mg daily - CMP, Mag am Elevated troponin - Patient with preserved ejection fraction on last echo - troponin 58.4 - no chest pain, no EKG changes - May be secondary to volume status - continue trending Hypothyroidism - Synthroid 200 mcg qAM HTN continue metoprolol hx of TAVR - done at [facility] DVT prophylaxis: Eliquis 5mg daily Diet: Heart Healthy Full code Disposition: Med surge/ Telemetry History of Present Illness Primary Care Provider: Veronica Tucker MD 68-year-old male with a past medical history of A-fib on anticoagulation, TAVR, status post nephrectomy due to renal cell carcinoma, CKD stage 4 who presents with dyspnea since yesterday He was was recently admitted due to pulmonary edema secondary to CKD treated with diuretics. On discharged, home Lasix was discharge with Bumex. Patient refers he has being compliance to the medication since discharge. He refers worsening orthopnea as well as SOB with exertion. On examination he was comfortable, in NAD, no SOB. As per patient he got a a Echocardiogram on [facility] which was "normal". Denied any chest pain. He refers good urine output. No pain, dysuria, or fever. No flank pain. He follow with nephrology outpatient, follow appointment was tomorrow. Got a fistula placed on September in anticipation for HD. He does have a history of renal cell carcinoma, not currently being treated with chemotherapy due to a reaction and hepatitis. Takes 10 mg prednisone daily. Follow with [facility]. ED course: IV Lasix given. EKG: A- fib HR 89. CXC: mild pulmonary edema, and small bilateral pleural effusions. Lab remarkable for Cr. 3.50, potassium 4.2. Magnesium added. Troponin 58.4. BNP 400 Allergies Allergy/AdvReac Type Severity Reaction Status Date / Time No Known Allergies Allergy Verified 09/29/23 13:46 Home Medications Medication Instructions Recorded Confirmed Type apixaban 5 mg tablet 5 mg PO BID #60 tabs 11/11/18 11/17/23 History multivitamin 1 tab PO DAILY 11/11/18 11/17/23 History cholecalciferol (vitamin D3) 50 2,000 unit PO DAILY #30 tabs 10/15/22 11/17/23 History mcg (2,000 unit) tablet amoxicillin 500 mg capsule 2,000 mg PO DIRECTED PRN 1 HR 07/07/23 11/17/23 History PRIOR TO DENTAL APPT. betamethasone, augmented 0.05 % 1 applic topical BID PRN Skin 07/07/23 11/17/23 History topical cream Irritation blood sugar diagnostic (OneTouch #100 ea 07/11/23 09/29/23 Rx Verio test strips) lancets 33 gauge (OneTouch Delica #100 ea 07/11/23 09/29/23 Rx Plus Lancet) pen needle, diabetic, safety 31 #100 ea 07/11/23 09/29/23 Rx gauge x 5/32" levothyroxine 200 mcg tablet 200 mcg PO QAM 08/21/23 11/17/23 History ferrous sulfate 325 mg (65 mg 325 mg PO DAILY 11/05/23 11/17/23 History iron) tablet (iron) prednisone 10 mg tablet 10 mg PO DAILY 11/05/23 11/17/23 History bumetanide 2 mg tablet 2 mg PO QAM #30 tabs 11/06/23 11/17/23 Rx metoprolol tartrate 50 mg tablet 50 mg PO BID #60 tabs 11/06/23 11/17/23 Rx pantoprazole 40 mg tablet,delayed 40 mg PO QAM 11/17/23 11/17/23 History release Past Med/Surg History Problem List (Updated 11/18/23 @ 00:02 by Lazarus Fierro DO) Hypoxia (Acute) Elevated troponin I level (Acute) Pulmonary edema (Acute) CKD (chronic kidney disease) (Acute) Pulmonary edema (Acute) Acute dyspnea (Acute) Acute GI bleeding (Acute) Acute blood loss anemia Immunotherapy High anion gap metabolic acidosis Acute kidney injury superimposed on CKD (Acute) Elevated LFTs (Acute) Hyperglycemia Hypothyroidism (Acute) Hypercholesterolemia (Acute) Medical History Chronic diastolic CHF (congestive heart failure) Chronic kidney disease, stage IV (severe) Atrial fibrillation Coagulopathy SARAH (obstructive sleep apnea) Heart failure with preserved ejection fraction Renal cell carcinoma CKD (chronic kidney disease) stage 4, GFR 15-29 ml/min Hypertension Surgical History S/P TAVR (transcatheter aortic valve replacement) S/p nephrectomy Family History Mother Cancer mother - bowel Social History Smoking Status: Never smoker Do You Dip or Chew Tobacco: No; Hx Alcohol Use: No Hx Substance Use: No Preferred Language: Occitan Communication Ability: Effective Petrophysicist Required: No Beliefs That Will Affect Care: None Current Living Situation: Spouse current occupational status: employed Feels Safe at Home: Yes Safety Concerns: Feels Safe At This Time Assistive Devices: None Review of Systems Review of Systems: as per HPI Physical Exam Constitutional: WD/WN, vitals as above Respiratory: normal respiratory effort; no respiratory distress Auscultation: + rales Cardiovascular: RRR, no murmur, no edema Gastrointestinal (Abdomen): normal bowel sounds, soft, nontender, no hepatosplenomegaly Skin: no rashes, warm and dry Results & Data Results & Data Vital Signs (Past 12 Hours) Vital Signs Temp Pulse Pulse Resp BP BP Pulse Ox 11/17/23 18:33 103 H 23 99 11/17/23 18:31 151/121 H 11/17/23 18:31 151/121 H 11/17/23 18:27 94 H 27 H 98 11/17/23 18:00 142/92 H 11/17/23 17:57 86 30 H 97 11/17/23 17:30 104 H 30 H 98 11/17/23 17:30 136/105 H 11/17/23 17:03 105 H 26 H 97 11/17/23 17:00 139/92 11/17/23 16:52 89 32 H 157/123 H 97 11/17/23 16:47 106 H 11/17/23 16:40 84 L 11/17/23 15:29 36.5 C 93 H 16 156/102 H 94 O2 Del Method O2 Flow Rate 11/17/23 18:33 Nasal Cannula 2 11/17/23 18:31 11/17/23 18:31 11/17/23 18:27 Nasal Cannula 2 11/17/23 18:00 11/17/23 17:57 Nasal Cannula 2 11/17/23 17:30 Nasal Cannula 2 11/17/23 17:30 11/17/23 17:03 Nasal Cannula 2 11/17/23 17:00 11/17/23 16:52 Nasal Cannula 2 11/17/23 16:47 11/17/23 16:40 Nasal Cannula 0 11/17/23 15:29 Room Air Code Status & VTE Plan VTE Prophylaxis Plan VTE Prophylaxis will be ordered: Yes Supervising Physician Co-Signing Physician Notes I personally saw and examined the patient. I independently reviewed the labs, EKG, imaging, problem list, medication list, past medical history and family history. I verified all pichardo points and agree with resident physician Dr Tae Madrid, with the following exceptions and/or additions: 68 year old female presents to the ER with shortness of breath and orthopnea rapidly developed over the last 2 days similar to his presentation previously with pulmonary edema. O/E HS RRR, no murmurs, Chest bibasal crackles, Abdo SNT, 2+ pedal edema b/l equal A/P Pulmonary edema secondary to CKD - increase Bumex to 2mg IV BID, I&Os, daily weights, consult nephrology Resident Activity Tracking Resident Involvement: Resident Care Provided Care Provided: Adult Hospital Medicine (4) Atrial fibrillation Atrial fibrillation type: unspecified Qualified Code(s): I48.91 - Unspecified atrial fibrillation
[2023-11-17 20:59] LABS: Magnesium 2.4 mg/dl (1.7-2.4)
[2023-11-17 21:07] LABS: Troponin I High Sensitivity 61.2 pg/ml (0-20)
[2023-11-17] MEDS ORDERED: NON-FORMULARY MEDICATION (Blood Sugar Diagnostic [Onetouch Verio Test Strips] strip) SCH (21:27)
[2023-11-17] MEDS ORDERED: ACETAMINOPHEN 325 MG TAB PO PRN (21:27)
[2023-11-17] MEDS ORDERED: ONDANSETRON INJ 2 MG/ML 2 ML VIAL IV PRN (21:27)
[2023-11-17] MEDS: METOPROLOL TARTRATE 50 MG TAB PO SCH (22:03)
[2023-11-17] MEDS: PANTOprazole 40 MG TAB PO SCH (22:04)
[2023-11-17] MEDS: APIXABAN 5 MG TABLET PO SCH (22:04)
[2023-11-17] MEDS ORDERED: Nursing to Pharmacy Communication SCH (22:30)
--- NOTE | 2023-11-18 05:28 | Electrocardiogram Report ---
Test Reason : Blood Pressure : */* mmHG Vent. Rate : 92 BPM Atrial Rate : * BPM P-R Int : * ms QRS Dur : 96 ms QT Int : 352 ms P-R-T Axes : * -7 -27 degrees QTcB Int : 435 ms Atrial fibrillation Nonspecific ST abnormality Abnormal ECG When compared with ECG of 05-Nov-2023 11:02, No significant change was found Confirmed by Terrance Marie ([id number]) on 11/18/2023 5:28:15 AM Referred By: Confirmed By: Terrance Marie
--- NOTE | 2023-11-18 05:38 | Billing Data ---
Date of Service November 17, 2023 Coding Level of Care Code 80861 INT INP/OBS CARE
[2023-11-18] MEDS: LEVOTHYROXINE SODIUM 200 MCG TABLET PO SCH (05:56)
[2023-11-18 07:54] VITALS: O2SAT 93
[2023-11-18] MEDS: CHOLECALCIFEROL 25 MCG (1000 UNITS) TAB PO SCH (08:33)
[2023-11-18] MEDS: FERROUS SULFATE 325 MG TAB PO SCH (08:33)
[2023-11-18] MEDS: BUMETANIDE 2 MG in SYRINGE 0 ML IV SCH (08:33)
[2023-11-18] MEDS: PANTOprazole 40 MG TAB PO SCH (08:33)
[2023-11-18] MEDS: predniSONE 10 MG TABLET PO SCH (08:34)
[2023-11-18] MEDS ORDERED: BUMETANIDE 2 MG in SYRINGE 0 ML IV SCH (09:00)
--- NOTE | 2023-11-18 09:11 | Nephrology Consultation ---
Date of Consultation November 18, 2023 Assessment & Plan (1) CKD (chronic kidney disease): * CKD stage G4 (advanced impairment). Patient has solitary L kidney. 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 Now with recurrence involving L kidney. Currently on Opdivo therapy (h/o immune mediated hepatitis, nephritis requiring steroid therapy in past) * Kidney function is stable at this time (2) Chronic diastolic CHF (congestive heart failure): * Recurrent CHF * Patient requires weight/symptom based diuretic dosing * Recommend Bumex 2 mg qAM/1 mg each afternoon. If patient gains > 3 lbs increase to Bumex 2 mg BID. If weight drops below target 350 lbs, then reduce to Bumex 2 mg daily * Recommend consultation w/ dietitian for education on low Na diet History of Present Illness Reason for Consultation: CKD, CHF Attending Physician: Goldy Mcpherson MD History of Present Illness Mr. Guadalupe is a 68 year old white male who is seen at the request of the [facility] hospitalist service for evaluation of CKD and CHF. Information for the HPI is obtained from direct patient interview and review of the EMR. HPI is summarized as follows: Mr. Guadalupe required R nephrectomy due to RCCA. Unfortunately he was later found to have recurrence in his L kidney and has been on Opdivo therapy. His baseline Cr is 3.4. He underwent R BC AVF creation 10/21/23 at [facility]. Mr. Guadalupe was last hospitalized at [facility] 11/05/23- 11/06/23 due to CHF. Furosemide 40mg alt w/ 80 mg daily was changed to Bumex 2 mg daily and Metoprolol dose was increased from 25 to 50 mg BID. Since discharge from the hospital Mr. Guadalupe reports progressive fluid retention. His target dry weight is 360 lbs. He does weigh himself daily but has not been adjusting his diuretic dose. He continues to eat at [employer] weekly Allergies Allergy/AdvReac Type Severity Reaction Status Date / Time No Known Allergies Allergy Verified 09/29/23 13:46 Home Medications Medication Instructions Recorded Confirmed Type apixaban 5 mg tablet 5 mg PO BID #60 tabs 11/11/18 11/17/23 History multivitamin 1 tab PO DAILY 11/11/18 11/17/23 History cholecalciferol (vitamin D3) 50 2,000 unit PO DAILY #30 tabs 10/15/22 11/17/23 History mcg (2,000 unit) tablet amoxicillin 500 mg capsule 2,000 mg PO DIRECTED PRN 1 HR 07/07/23 11/17/23 History PRIOR TO DENTAL APPT. betamethasone, augmented 0.05 % 1 applic topical BID PRN Skin 07/07/23 11/17/23 History topical cream Irritation blood sugar diagnostic (OneTouch #100 ea 07/11/23 09/29/23 Rx Verio test strips) lancets 33 gauge (OneTouch Delica #100 ea 07/11/23 09/29/23 Rx Plus Lancet) pen needle, diabetic, safety 31 #100 ea 07/11/23 09/29/23 Rx gauge x 5/32" levothyroxine 200 mcg tablet 200 mcg PO QAM 08/21/23 11/17/23 History ferrous sulfate 325 mg (65 mg 325 mg PO DAILY 11/05/23 11/17/23 History iron) tablet (iron) prednisone 10 mg tablet 10 mg PO DAILY 11/05/23 11/17/23 History bumetanide 2 mg tablet 2 mg PO QAM #30 tabs 11/06/23 11/17/23 Rx metoprolol tartrate 50 mg tablet 50 mg PO BID #60 tabs 11/06/23 11/17/23 Rx pantoprazole 40 mg tablet,delayed 40 mg PO QAM 11/17/23 11/17/23 History release Patient History Medical History Chronic diastolic CHF (congestive heart failure) Chronic kidney disease, stage IV (severe) Atrial fibrillation Coagulopathy SARAH (obstructive sleep apnea) Heart failure with preserved ejection fraction Renal cell carcinoma CKD (chronic kidney disease) stage 4, GFR 15-29 ml/min Hypertension Surgical History S/P TAVR (transcatheter aortic valve replacement) S/p nephrectomy Family History Mother Cancer mother - bowel Social History Smoking Status: Never smoker Do You Dip or Chew Tobacco: No; Hx Alcohol Use: No Hx Substance Use: No Preferred Language: Turkmen Communication Ability: Effective Ict Programmer Required: No Beliefs That Will Affect Care: None Current Living Situation: Spouse current occupational status: employed Feels Safe at Home: Yes Assistive Devices: None Review of Systems Constitutional: no fever Eyes: no problem reported Ear, Nose, Mouth, Throat: no problem reported Respiratory: + dyspnea Cardiovascular: no chest pain Gastrointestinal: no nausea, no vomiting and no diarrhea/loose stools Genitourinary: no dysuria Physical Exam Constitutional: not in distress Eyes: PERRL, conjunctivae normal, anicteric sclerae ENMT: external ear and nose normal, oropharynx normal Neck: trachea midline, no thyromegaly Respiratory: Auscultation: lungs clear to auscultation bilaterally Cardiovascular: Rate/Rhythm: regular rate and regular rhythm Extremities: + edema (3+ pretibial pitting edema) and + AV fistula (+ bruit) Gastrointestinal (Abdomen): normal bowel sounds, soft, nontender, no hepatosplenomegaly Neurologic: Speech / Cognition: normal speech and normal cognition Results & Data Vital Signs (Past 12 Hours) Vital Signs Temp Pulse Resp BP Pulse Ox O2 Del Method 11/18/23 07:54 36.4 C L 102 H 16 173/99 H 93 Room Air 11/18/23 07:24 Room Air 11/17/23 22:37 136/84 11/17/23 22:36 158/89 H 11/17/23 21:30 36.3 C L 93 H 18 198/120 H 97 Room Air Laboratory Results Laboratory Results WBC 10.36 K/ul (4.8-10.8) 11/17/23 16: RBC 4.24 M/uL (4.70-6.10) L 11/17/23 16:27 Hgb 12.2 g/dl (14.0-18.0) L 11/17/23 16:27 Hct 38.9 % (42.0-52.0) L 11/17/23 16:27 MCV 91.7 fL (80.0-100.0) 11/17/23 16: MCH 28.8 pg (25.0-34.0) 11/17/23 16:27 MCHC 31.4 g/dL (32.0-36.0) L 11/17/23 16: RDW Std Deviation 57.2 fL (36.4-46.3) H 11/17/23 16: RDW Coeff of Nick 16.9 % (11.5-14.5) H 11/17/23 16: Plt Count 170 K/uL (130-400) 11/17/23 16: MPV 11.6 fL (9.4-12.4) 11/17/23 16: Immature Gran % (Auto) 0.6 % 11/17/23 16: Neut % (Auto) 85.6 % 11/17/23 16: Lymph % (Auto) 6.1 % 11/17/23 16: Mchenry % (Auto) 7.2 % 11/17/23 16: Eos % (Auto) 0.2 % 11/17/23 16: Baso % (Auto) 0.3 % 11/17/23: Neut # (Auto) 8.87 K/uL (1.40-6.50) H 11/17/23 16:27 Lymph # (Auto) 0.63 K/uL (1.20-3.40) L 11/17/23 16:27 Mchenry # (Auto) 0.75 K/uL (0.11-0.59) H 11/17/23 16: Eos # (Auto) 0.02 K/uL (0.00-0.50) 11/17/23 16: Baso # (Auto) 0.03 K/uL (0.00-0.20) 11/17/23 16: Immature Gran # (Auto) 0.06 K/uL (0.01-0.20) 11/17/23 16: PT 11.7 Seconds (9.0-12.0) 11/17/23 16: INR 1.1 (0.9-1.1) 11/17/23 16: APTT 34 Seconds (21-31) H 11/17/23 16: PTT Ratio 1.3 11/17/23 16: Sodium 142 mmol/L (136-145) 11/17/23 16: Potassium 4.2 mmol/L (3.5-5.1) 11/17/23 16:27 Chloride 108 mmol/L (98-107) H 11/17/23 16:27 Carbon Dioxide 26 mmol/L (21-32) 11/17/23 16:27 Anion Gap 8 (3-11) 11/17/23 16:27 BUN 54 mg/dl (6-23) H 11/17/23 16:27 Creatinine 3.50 mg/dl (0.6-1.4) H 11/17/23 16:27 Est Cr Clr Drug Dosing Not Reportable 11/17/23 16:27 Est GFR ( Amer) 19.3 ml/min 11/17/23 16:27 Est GFR (Non-Af Amer) 16.7 ml/min 11/17/23 16:27 BUN/Creatinine Ratio 15.4 (10-20) 11/17/23 16:27 Glucose 140 mg/dl (70-99(Fasting)) H 11/17/23 16:27 Calcium 9.6 mg/dl (8.6-10.3) 11/17/23 16:27 Magnesium 2.4 mg/dl (1.7-2.4) 11/17/23 19:43 Total Bilirubin 0.8 mg/dl (0.2-1.0) 11/17/23 16:27 AST 29 U/L (13-39) 11/17/23 16:27 ALT 39 U/L (7-52) 11/17/23 16:27 Alkaline Phosphatase 88 U/L (34-104) 11/17/23 16:27 Troponin I High Sens 61.2 pg/ml (0-20) H* 11/17/23 19:43 B-Natriuretic Peptide 400 pg/ml (0-100) H 11/17/23 16:27 Total Protein 6.2 gm/dl (6.0-8.3) 11/17/23 16:27 Albumin 3.6 gm/dl (3.4-5.0) 11/17/23 16:27 Globulin 2.6 gm/dl (2.5-4.0) 11/17/23 16:27 Albumin/Globulin Ratio 1.4 (0.9-2) 11/17/23 16:27 Impressions Chest X-Ray 11/17/23 15:34 XR chest 1V not portable HISTORY: Chest pain, nonspecific COMPARISON: Chest 11/05/2023. FINDINGS: There are low lung volumes. No pneumothorax. The heart remains enlarged. Mild interstitial pulmonary edema and small bilateral pleural effusions persist. Patchy bibasilar densities are again noted. This may represent atelectasis. A superimposed pneumonia would be difficult to exclude. IMPRESSION: 1. No significant change in the cardiomegaly, mild pulmonary edema, and small b ilateral pleural effusions. 2. Patchy bibasilar densities persist. ACT 112: Negative or not required by law. Electronically signed by: David Moffett M.D. 11/17/2023 5:08 PM PG Care Time/CCT Total # of Minutes Spent Total Time Spent with Patient: Total time spent is greater than 50% in coordination of care (as documented) at patient's floor/unit and/or counseling patient: Coding Level of Care Code 00572 IN/OBS CONSULT LVL 5,80M Diagnoses CKD (chronic kidney disease) N18.9 Chronic diastolic CHF (congestive heart failure) I50.32
[2023-11-18 10:07] LABS: Hematocrit (blood only) 40.1 % (42.0-52.0); Hemoglobin 12.3 g/dl (14.0-18.0); Mean Corpuscular Hemoglobin 28.7 pg (25.0-34.0); Mean Corpuscular Hgb Conc 30.7 g/dL (32.0-36.0); Mean Corpuscular Volume 93.5 fL (80.0-100.0); Mean Platelet Volume 11.1 fL (9.4-12.4); Platelet Count 150 K/uL (130-400); RDW Standard Deviation 58.4 fL (36.4-46.3); Red Blood Count 4.29 M/uL (4.70-6.10); White Blood Count 7.47 K/ul (4.8-10.8)
[2023-11-18 10:22] LABS: Albumin Globulin Ratio 1.3 (0.9-2); Albumin Level 3.5 gm/dl (3.4-5.0); BUN Creatinine Ratio 15.4 (10-20); Bilirubin,Total 0.7 mg/dl (0.2-1.0); Calcium 9.4 mg/dl (8.6-10.3); Creatinine Clr Calc Pharmacy 31.5 ml/min; Est GFR (African American) 18.9 ml/min; Est GFR (Non-African American) 16.3 ml/min; Globulin 2.6 gm/dl (2.5-4.0); Magnesium 2.2 mg/dl (1.7-2.4); Phosphorus 4.4 mg/dl (2.5-4.9); Total Protein 6.1 gm/dl (6.0-8.3)
[2023-11-18 15:50] VITALS: BP 135/79; PULSE 98; RESP 18; TEMP 98.2
--- NOTE | 2023-11-18 19:43 | Discharge Summary ---
Discharge Summary Date of Service November 18, 2023 Principal Dx & Hospital Course #1 = Principal Diagnosis (1) Pulmonary edema: Presented with worsening orthopnea as well as SOB with exertion. - Recent change on diuretics, Lasix switched to Bumex 2 mg daily. No change on weight. - Hypertensive, on nasal cannula 2L on admission. - CXR: mild pulmonary edema, and small bilateral pleural effusions - Good urine output - On admission, Cr: 3.50, K: 4.2 - Cr Baseline: 3.3-3.5 mg/dl - IV lasix 60 mg once on ED - Volume Status improved after IV diuretics - Nephrology consulted: > Patient requires weight/symptom based diuretic dosing. > Increased to Bumex 2 mg QAM and 1 mg each afternoon. > If patient gains > 3 lbs increase to Bumex 2 mg BID. > If weight drops below target 350 lbs, then reduce to Bumex 2 mg daily - Asbestos Remover consulted for education on low Na diet (2) CKD (chronic kidney disease): CKD stage G4 (advanced impairment). Patient has solitary L kidney. Baseline Cr 3.4 - R BC AVF created 10/21/23 - S/p R nephrectomy due to RCCA. Now with recurrence involving L kidney. Currently on maintenance nivolumab therapy (Prior immunotherapy discontinued due to nephritis and hepatitis in the past). - Continue Prednisone 10 mg for Autoimmune hepatitis - Kidney function is stable at this time (3) Atrial fibrillation: - Permanent - Metoprolol tartrate 50 mg BID - Eliquis 5 mg daily Elevated troponin on admission - Patient with preserved ejection fraction on last echo - troponin 58.4 - suspect secondary to demand ischemia - no chest pain, no EKG changes - May be secondary to volume status Plan Chronic stable problems: Hypothyroidism: Continue Synthroid 200 mcg every morning Hypertension: Continue metoprolol VTE PPx: Eliquis 5 mg daily CODE STATUS: Full code Notes For Next Care Provider Medication Changes From Visit Increased to Bumex 2 mg QAM and 1 mg each afternoon. If patient gains > 3 lbs increase to Bumex 2 mg BID. If weight drops below target 350 lbs, then reduce to Bumex 2 mg daily. Admission HPI Per Admitting Provider 68-year-old male with a past medical history of A-fib on anticoagulation, TAVR, status post nephrectomy due to renal cell carcinoma, CKD stage 4 who presents with dyspnea since yesterday He was was recently admitted due to pulmonary edema secondary to CKD treated with diuretics. On discharged, home Lasix was discharge with Bumex. Patient refers he has being compliance to the medication since discharge. He refers worsening orthopnea as well as SOB with exertion. On examination he was comfortable, in NAD, no SOB. As per patient he got a a Echocardiogram on [facility] which was "normal". Denied any chest pain. He refers good urine output. No pain, dysuria, or fever. No flank pain. He follow with nephrol ogy outpatient, follow appointment was tomorrow. Got a fistula placed on September in anticipation for HD. He does have a history of renal cell carcinoma, not currently being treated with chemotherapy due to a reaction and hepatitis. Takes 10 mg prednisone daily. Follow with [facility]. ED course: IV Lasix given. EKG: A- fib HR 89. CXC: mild pulmonary edema, and small bilateral pleural effusions. Lab remarkable for Cr. 3.50, potassium 4.2. Magnesium added. Troponin 58.4. BNP 400 Admission Exam Per Admitting Provider Constitutional: WD/WN, vitals as above Respiratory: normal respiratory effort; no respiratory distress Auscultation: + rales Cardiovascular: RRR, no murmur, no edema Gastrointestinal (Abdomen): normal bowel sounds, soft, nontender, no hepatosplenomegaly Skin: no rashes, warm and dry Discharge Exam General: No acute distress, nondiaphoretic, well-developed, well-nourished. Skin: The skin was without rashes, erythema, edema, or bruising. Cardiac: Regular rate and rhythm without murmurs gallops or rubs. Pulm: Breath sounds diminished in lower lobes bilaterally, otherwise clear to auscultation bilaterally without wheezes, rales or rhonchi. No respiratory distress. 93% on room air. Abdominal: Positive bowel sounds x 4. Soft, nontender, without masses or organomegaly. No guarding or rebound tenderness. Neuro: A&O x3. No focal neurological deficits. Discharge Plan Discharge Items Patient Disposition: Home - Self-Care Reason For Visit: PULMONARY EDEMA Discharge Diagnosis: Pulmonary edema Activity: Resume your previous activity Non-emergency contact: Primary Care Provider and Food Stylist Call non-emergency contact if: you have any medication questions and your symptoms worsen Follow-up/Referrals: Veronica Tucker MD [Primary Care Provider] - Diet: Heart Healthy and Low Sodium (2gm) Addtl Attending Provider Instructions: Mr. Guadalupe, You were admitted to the hospital because of pulmonary edema. Edema is caused by excess fluid in your lungs. When the fluid builds up, and makes it harder to breathe. You were seen by a grinder and plater (kidney doctor) while in the hospital who is recommended an adjustment in your diuretic regimen, which I will outline below. Additionally, you were seen by a registered dietitian who reviewed a low-sodium diet with you. Upon discharge from the hospital: * Take Bumex 2 mg every morning. Take Bumex 1 mg each afternoon. * If you gain >3 pounds, increase your Bumex to 2 mg twice daily (2 mg in the morning, and 2 mg in the afternoon). * If your weight drops below 350 pounds, then reduce your Bumex to just 2 mg daily (only take it in the morning). * Follow the low-sodium diet the it service manager reviewed with you. * Follow-up with your PCP and grinder and plater. * Continue all other home medications as prescribed. Please return to the hospital if you experience any of the following: Chest pain, chest tightness, shortness of breath, trouble breathing, if you cannot speak in full sentences before running out of breath, feeling faint/dizzy/loss of consciousness, or confusion. It was a pleasure taking care of you while you were in the hospital, Lakia Garzon PA-C Pending Studies at Discharge: No Stand-Alone Forms: My [facility], Smoking Cessation Medications and DC Order Prescriptions: New bumetanide 1 mg tablet 1 mg PO DAILY Qty: 30 0RF Rx Instructions: 1 mg in the afternoon Continued apixaban 5 mg tablet 5 mg PO BID Qty: 60 Rx Instructions: PER PT "TOOK TODAY, 09/16/23, TOLD TO STOP TAKING FROM NOW ON". multivitamin tablet 1 tab PO DAILY cholecalciferol (vitamin D3) 50 mcg (2,000 unit) tablet 2,000 unit PO DAILY Qty: 30 levothyroxine 200 mcg tablet 200 mcg PO QAM prednisone 10 mg tablet 10 mg PO DAILY ferrous sulfate [iron] 325 mg (65 mg iron) Tablet 325 mg PO DAILY metoprolol tartrate 50 mg tablet 50 mg PO BID Qty: 60 0RF bumetanide 2 mg tablet 2 mg PO QAM Qty: 30 0RF amoxicillin 500 mg capsule 2,000 mg PO DIRECTED PRN (Reason: 1 HR PRIOR TO DENTAL APPT.) betamethasone, augmented 0.05 % cream 1 applic TOPICAL BID PRN (Reason: Skin Irritation) (DME) pen needle, diabetic, safety 31 gauge x 5/32" needle See Rx Instructions .Route Qty: 100 0RF Rx Instructions: to inject insulin 1x a day (DME) OneTouch Verio test strips Strip See Rx Instructions .Route Qty: 100 1RF Rx Instructions: check blood sugar 3x a day (DME) lancets [OneTouch Delica Plus Lancet] 33 gauge misc See Rx Instructions .Route Qty: 100 1RF Rx Instructions: to check blood sugar 3x a day pantoprazole 40 mg tablet,delayed release (DR/EC) 40 mg PO QAM Discharge Orders: Discharge Order (Routine); Ordered 11/18/23 Ordered By: Lakia Fajardo/Other Patient Handouts: Pulmonary Edema Admission Data Admit Date/Time: 11/17/23 19:35 Attending Provider: Goldy Mcpherson Admit Provider: Tae Harris Primary Care Provider: Veronica Tucker Other Providers: Shivam Orellana; Rosas Soto Other Interventions: Discharge Summary Assessment (RN) Last Done: 11/18/23 18:02 Hospital Stay Data Consultations 11/17/23 18:18 ED Decision to Admit Stat 11/17/23 21:27 Consult Nephrology Routine Diagnostic Imagining Performed Chest X-Ray 11/17/23 15:34 XR chest 1V not portable HISTORY: Chest pain, nonspecific COMPARISON: Chest 11/05/2023. FINDINGS: There are low lung volumes. No pneumothorax. The heart remains enlarged. Mild interstitial pulmonary edema and small bilateral pleural effusions persist. Patchy bibasilar densities are again noted. This may represent atelectasis. A superimposed pneumonia would be difficult to exclude. IMPRESSION: 1. No significant change in the cardiomegaly, mild pulmonary edema, and small bilateral pleural effusions. 2. Patchy bibasilar densities persist. ACT 112: Negative or not required by law. Electronically signed by: David Moffett M.D. 11/17/2023 5:08 PM Pending Results Patient Have Any Pending Studies at Discharge: No Discharge Instructions Given to Patient (Per Discharging Provider) Mr. Guadalupe, Justin were admitted to the hospital because of pulmonary edema. Edema is caused by excess fluid in your lungs. When the fluid builds up, and makes it harder to breathe. You were seen by a grinder and plater (kidney doctor) while in the hospital who is recommended an adjustment in your diuretic regimen, which I will outline below. Additionally, you were seen by a registered dietitian who reviewed a low-sodium diet with you. Upon discharge from the hospital: * Take Bumex 2 mg every morning. Take Bumex 1 mg each afternoon. * If you gain >3 pounds, increase your Bumex to 2 mg twice daily (2 mg in the morning, and 2 mg in the afternoon). * If your weight drops below 350 pounds, then reduce your Bumex to just 2 mg daily (only take it in the morning). * Follow the low-sodium diet the it service manager reviewed with you. * Follow-up with your PCP and grinder and plater. * Continue all other home medications as prescribed. Please return to the hospital if you experience any of the following: Chest pain, chest tightness, shortness of breath, trouble breathing, if you cannot speak in full sentences before running out of breath, feeling faint/dizzy/loss of consciousness, or confusion. It was a pleasure taking care of you while you were in the hospital, Lakia Garzon PA-C Total Time Total Time Spent Total Time Spent (In Minutes): Greater than 30 minutes spent completing this discharge process including direct patient care, medication reconciliation, documentation, review of labs and images, and coordination of care. Coding Level of Care Code 76207 INP/OBS DISCH >30 MIN Diagnoses Pulmonary edema J81.0 Chronicity: acute CKD (chronic kidney disease) N18.9 Atrial fibrillation I48.91 Atrial fibrillation type: unspecified
== END 2023-11-18 18:25 | disposition home or self-care (01) | DRG 189 ==
LOC: ED 15:28 → 3N 19:35 → SUATTDRO 19:35 → 3N 20:39

== ENCOUNTER 2024-04-13 11:41 | Inpatient (IN) ==
--- NOTE | 2024-04-13 12:31 | Emergency Department Note ---
Impression & Plan Acute hypoxic respiratory failure, Chronic diastolic CHF (congestive heart failure), CKD (chronic kidney disease), Pulmonary edema, Elevated troponin I level, Atrial fibrillation with rapid ventricular response, Thrombocytopenia, GIB (gastrointestinal bleeding) ED Provider Note NAME: JACOB WANG AGE: 68 SEX: M : 1955 ARRIVES VIA: Walk-In INFORMANT: Patient, ED PROVIDER(S): Sean Vega MD CHIEF COMPLAINT: Shortness of breath, weakness MEDICAL DECISION MAKING: Patient presents due to concern for shortness of breath hypoxia fatigue and weakness. IV was established and blood work was obtained. Patient initially seen in the triage area. Given the patient's medical complexity I did ask the charge to have the patient be roomed as I did think the patient would likely be admitted. Blood work shows a normal white count with a hemoglobin of 9.5. Patient is had a 3 point troponins hemoglobin in about a month's time. Rectal exam was performed which showed Hemoccult positive stool. Patient is hyponatremic at 128. Patient's kidney function more or less at patient's baseline with creatinine 4.24. Patient's troponin is 91. No active chest pain. BNP of 690. Patient's COVID flu and RSV are negative. Patient's chest x-ray shows likely CHF. As the patient did have tachycardia with hypotension do believe there may be some diastolic component although the patient may benefit from blood administration. The patient was ordered Lopressor 5 mg IV as well as Bumex 0.5 mg tablets and gentle diuresis and associated rate control with the patient was ordered a unit of PRBCs to be given now 1 to be held. I did inform the patient the findings. The patient did have improvement in heart rate and blood pressure after these interventions were initiated. I did speak the on-call hospitalist service Dr. Thurston and the patient was admitted to the medicine service. I also had contacted Dr. Grijalva patient's oncologist to also did add some labs to rule out possible hemolysis. Critical Care: I have personally spent 95 minutes of critical care time in direct management of this patient. This includes bedside care, interpretation of diagnostic studies, and testing, discussion with consultants, patient, and family members, and other require inpatient management activities. This 95 minutes is in excess of all separately billable procedures. Discussion w/ other healthcare providers: Dr. Grijalva hematology oncology Dr. Thurston inpatient medicine service Prior /Outside records reviewed: None Differential diagnosis: Infection, dehydration, metabolic abnormality, hypo/hyperglycemia, electrolyte imbalance, anemia, UTI, pneumonia, thyroid dysfunction among others were considered. Diagnostics, as interpreted by me: ECG: A-fib with RVR, rate of 120 PVCs noted. Normal axis. No obvious STEMI. Cardiac monitoring: An order was placed for continuous cardiac monitoring. The monitor shows a rate of 112 with tachycardic and irregular irregular rhythm. Patient was placed on pulse oximetry Medical decision rules: None Imaging studies: I informally interpreted the patient's chest x-ray with pulmonary edema with formal report to follow. HPI: Patient presents due to concern for increasing weakness and fatigue. The patient states that he believes that he has had symptoms since March 16. Patient states that at that time he did have a doubling of his chemo dose which he is receiving for metastatic renal cell carcinoma. Patient has had a dry nonproductive. Patient states that in addition to his fatigue he has been short of breath more worn out fatigable with just short periods of activity. Patient denies any chest pains. The patient does have chronic lower extremity swelling which is unchanged compared to prior. The patient states that his right leg always does swell more than the left. Patient states that he did have an increase in his steroids from 10 mg to [address] Washington about a week ago. Patient denies any abdominal pain no nausea vomiting or diarrhea. Patient states he is compliant with his medications and did take his meds this morning. He does take a diuretic. He does follow with Dr. Tucker at [facility] and a Dr. Sparks through [facility] for cardiology. Patient also follows with Dr. Washington here locally for nephrology due to his kidney disease reportedly does have baseline creatinine of 4 was noted to be 4.6 today. Reportedly SpO2 in clinic of 85 to 90%. Patient does take Eliquis. Platelet counts reportedly were 74 today and were 109 on March 30. PAST MEDICAL HISTORY: See Below PAST SURGICAL HISTORY: See Below SOCIAL HISTORY: See Below HOME MEDICATIONS: See Below ALLERGIES: See Below VITALS: See Below PHYSICAL EXAMINATION: GENERAL: NAD, non-toxic. Seated in wheelchair. EYE EXAM: Normal conjunctiva. PERRL, no anisocoria and EOM's grossly intact w/o pain. OROPHARYNX: Moist mucus membranes, grossly normal dentition. NECK: Trachea midline, no stridor. Supple, no nuchal rigidity, no adenopathy, non-tender. No signs of meningismus. FROM of the neck with good chin to chest and neck extension. LUNGS: Clear to auscultation. Normal chest wall mechanics. HEART: Tachycardic and irregularly irregular, no MRG. ABDOMEN: Abdomen soft, non-tender, no masses, no rebound or guarding. BACK: No CVA TTP. SKIN: No rashes and no bruising. UPPER EXTREMITIES: Upper extremities are grossly normal. LOWER EXTREMITIES: Grossly normal, 2-3+ right lower extremity edema compared to 1+ left lower extremity edema without calf pain or erythema. NEURO EXAM: A&O x3, cranial nerves II-XII grossly intact, normal speech, moves all 4 extremities. Past Med/Surg History Problem List (Updated 04/13/24 @ 20:37 by Sean Vega MD) GIB (gastrointestinal bleeding) (Acute) Thrombocytopenia (Acute) Atrial fibrillation with rapid ventricular response (Acute) Hypertension SARAH (obstructive sleep apnea) Chronic diastolic CHF (congestive heart failure) (Acute) Atrial fibrillation Chronic kidney disease, stage IV (severe) Metastatic renal cell carcinoma Abnormal LFTs Thrombocytopenia Microcytic anemia Heme positive stool Acute hypoxic respiratory failure (Acute) Hypoxia (Acute) Elevated troponin I level (Acute) Pulmonary edema (Acute) CKD (chronic kidney disease) (Acute) Immunotherapy Hypothyroidism (Acute) Hypercholesterolemia (Acute) Medical History Acute GI bleeding Coagulopathy Heart failure with preserved ejection fraction Renal cell carcinoma CKD (chronic kidney disease) stage 4, GFR 15-29 ml/min Surgical History S/P TAVR (transcatheter aortic valve replacement) S/p nephrectomy Family History Mother Cancer mother - bowel Social History Smoking Status: Never smoker Do You Dip or Chew Tobacco: No; Hx Alcohol Use: No Hx Substance Use: No Preferred Language: Setswana Communication Ability: Effective [employer] Required: No Beliefs That Will Affect Care: None Current Living Situation: Spouse current occupational status: employed Feels Safe at Home: Yes Safety Concerns: Feels Safe At This Time Assistive Devices: Raised Toilet Seat Allergies Allergies Allergy/AdvReac Type Severity Reaction Status Date / Time No Known Allergies Allergy Verified 03/30/24 13:16 Home Meds Home Medications Medication Instructions Recorded Confirmed apixaban 5 mg tablet 5 mg PO BID #60 tabs 11/11/18 04/13/24 multivitamin 1 tab PO DAILY 11/11/18 04/13/24 cholecalciferol (vitamin D3) 50 2,000 unit PO DAILY #30 tabs 10/15/22 04/13/24 mcg (2,000 unit) tablet amoxicillin 500 mg capsule 2,000 mg PO DIRECTED PRN 1 HR 07/07/23 04/13/24 PRIOR TO DENTAL APPT. betamethasone, augmented 0.05 % 1 applic topical BID PRN Skin 07/07/23 04/13/24 topical cream Irritation levothyroxine 200 mcg tablet 200 mcg PO QAM 08/21/23 04/13/24 ferrous sulfate 325 mg (65 mg 325 mg PO DAILY 11/05/23 04/13/24 iron) tablet (iron) prednisone 10 mg tablet 10 mg PO DAILY 11/05/23 04/13/24 pantoprazole 40 mg tablet,delayed 40 mg PO QAM 11/17/23 04/13/24 release metoprolol tartrate 50 mg tablet 50 mg PO UD 04/13/24 04/13/24 Previous Rx's Medication Instructions Recorded bumetanide 1 mg tablet 2 mg (2 x 1 mg) PO .COMPLEX #30 02/23/24 tabs bumetanide 1 mg tablet 1 mg PO QAM #30 tabs 03/30/24 Results & Data (ED) Vital Signs Vital Signs - 24 hr 04/13/24 11:50 04/13/24 13:00 04/13/24 13:00 Temperature 36.5 C Temperature Source Temporal Artery Scan Pulse Rate 110 H 112 H Pulse Rate [Right Finger] 119 H Pulse Rhythm Regular Pulse Rhythm [Right Finger] Regular Pulse Strength [Right Finger] Normal Respiratory Rate 20 19 19 Respiratory Effort / Characteristics Non-Labored Non-Labored Respiratory Depth Normal Normal Respiratory Pattern Regular Blood Pressure 126/85 Blood Pressure [Left Arm] 102/79 Blood Pressure Mean 98 Blood Pressure Mean [Left Arm] 86 Blood Pressure Position [Left Arm] Lying Pulse Oximetry 91 91 91 Oxygen Delivery Method Room Air Room Air Room Air Sepsis Recent Fever Within 48 Hours No Sepsis New/Unexplained Change in Mental Status N/A Sepsis Action Taken by Nursing No Action Required 04/13/24 13:32 04/13/24 14:05 04/13/24 14:48 Temperature Temperature Source Pulse Rate 114 H 108 H 108 H Pulse Rate [Right Finger] Pulse Rhythm Pulse Rhythm [Right Finger] Pulse Strength [Right Finger] Respiratory Rate Respiratory Effort / Characteristics Respiratory Depth Respiratory Pattern Blood Pressure 107/80 Blood Pressure [Left Arm] Blood Pressure Mean Blood Pressure Mean [Left Arm] Blood Pressure Position [Left Arm] Pulse Oximetry Oxygen Delivery Method Sepsis Recent Fever Within 48 Hours Sepsis New/Unexplained Change in Mental Status Sepsis Action Taken by Nursing Laboratory Data 04/13/24 19:55 04/13/24 19:55 Lab Results 04/13/24 04/13/24 04/13/24 Range/Units 12:23 13:01 14:04 WBC 10.05 (4.8-10.8) K/ul RBC 3.91 L (4.70-6.10) M/uL Hgb 9.5 L (14.0-18.0) g/dl Hct 30.5 L (42.0-52.0) % MCV 78.0 L (80.0-100.0) fL MCH 24.3 L (25.0-34.0) pg MCHC 31.1 L (32.0-36.0) g/dL RDW Std Deviation 54.0 H (36.4-46.3) fL RDW Coeff of Nick 20.3 H (11.5-14.5) % Plt Count 63 L (130-400) K/uL Immature Gran % (Auto) 1.7 % Neut % (Auto) 85.7 % Lymph % (Auto) 8.4 % Vigo % (Auto) 4.1 % Eos % (Auto) 0.0 % Baso % (Auto) 0.1 % Reticulocyte % (Auto) 4.10 H (0.50-2.00) % Neut # (Auto) 8.62 H (1.40-6.50) K/uL Lymph # (Auto) 0.84 L (1.20-3.40) K/uL Vigo # (Auto) 0.41 (0.11-0.59) K/uL Eos # (Auto) 0.00 (0.00-0.50) K/uL Baso # (Auto) 0.01 (0.00-0.20) K/uL Reticulocyte # 0.160 H (0.020-0.100) 10^6/uL Immature Gran # (Auto) 0.17 (0.01-0.20) K/uL Absolute Nucleated RBC 0.03 (0.00-0.12) K/uL Nucleated RBC % (auto) 0.3 % Platelet Estimate Decreased L (Normal) Polychromasia 1+ Anisocytosis Present Tear Drop Cells Occasional Ovalocytes 1+ Peripher Smr Path Cons ESR 15 (0-20) mm/hr PT Cancelled INR Cancelled APTT Cancelled PTT Ratio Cancelled Sodium 128 L (136-145) mmol/L Potassium 5.0 (3.5-5.1) mmol/L Chloride 102 (98-107) mmol/L Carbon Dioxide 16 L (21-32) mmol/L Anion Gap 10 (3-11) BUN 108 H (6-23) mg/dl Creatinine 4.24 H (0.6-1.4) mg/dl Est Cr Clr Drug Dosing 25.1 ml/min eGFR 14.30 BUN/Creatinine Ratio 25.5 H (10-20) Glucose 172 H (70-99(Fasting)) mg/dl Calcium 8.4 L (8.6-10.3) mg/dl Phosphorus 4.7 (2.5-4.9) mg/dl Magnesium 2.4 (1.7-2.4) mg/dl Total Bilirubin 2.1 H (0.2-1.0) mg/dl AST 56 H (13-39) U/L ALT 44 (7-52) U/L Alkaline Phosphatase 183 H (34-104) U/L Lactate Dehydrogenase 287 H (86-244) U/L Troponin I High Sens 91.4 H* (0-20) pg/ml C-Reactive Protein 3.06 H (0-0.5) mg/dl B-Natriuretic Peptide 690 H (0-100) pg/ml Total Protein 5.2 L (6.0-8.3) gm/dl Albumin 2.7 L (3.4-5.0) gm/dl Globulin 2.5 (2.5-4.0) gm/dl Albumin/Globulin Ratio 1.1 (0.9-2) POC Stool Occult Blood Positive A (Negative) SARS-CoV-2 (PCR) (Negative) Influenza Type A (PCR) (Neg) Influenza Type B (PCR) (Neg) RSV (RT-PCR) (Neg) Blood Type Antibody Screen Direct Antiglob Test (Negative) RODRÍGUEZ (IgG-AHG) (Negative) RODRÍGUEZ, Polyspecific (Negative) RODRÍGUEZ C3b, C3d 5 Min (Negative) Crossmatch 04/13/24 04/13/24 Range/Units 14:52 15:10 WBC (4.8-10.8) K/ul RBC (4.70-6.10) M/uL Hgb (14.0-18.0) g/dl Hct (42.0-52.0) % MCV (80.0-100.0) fL MCH (25.0-34.0) pg MCHC (32.0-36.0) g/dL RDW Std Deviation (36.4-46.3) fL RDW Coeff of Nick (11.5-14.5) % Plt Count (130-400) K/uL Immature Gran % (Auto) % Neut % (Auto) % Lymph % (Auto) % Vigo % (Auto) % Eos % (Auto) % Baso % (Auto) % Reticulocyte % (Auto) (0.50-2.00) % Neut # (Auto) (1.40-6.50) K/uL Lymph # (Auto) (1.20-3.40) K/uL Vigo # (Auto) (0.11-0.59) K/uL Eos # (Auto) (0.00-0.50) K/uL Baso # (Auto) (0.00-0.20) K/uL Reticulocyte # (0.020-0.100) 10^6/uL Immature Gran # (Auto) (0.01-0.20) K/uL Absolute Nucleated RBC (0.00-0.12) K/uL Nucleated RBC % (auto) % Platelet Estimate (Normal) Polychromasia Anisocytosis Tear Drop Cells Ovalocytes Peripher Smr Path Cons ESR (0-20) mm/hr PT 13.9 H INR 1.3 H APTT 44 H PTT Ratio 1.6 Sodium (136-145) mmol/L Potassium (3.5-5.1) mmol/L Chloride (98-107) mmol/L Carbon Dioxide (21-32) mmol/L Anion Gap (3-11) BUN (6-23) mg/dl Creatinine (0.6-1.4) mg/dl Est Cr Clr Drug Dosing ml/min eGFR BUN/Creatinine Ratio (10-20) Glucose (70-99(Fasting)) mg/dl Calcium (8.6-10.3) mg/dl Phosphorus (2.5-4.9) mg/dl Magnesium (1.7-2.4) mg/dl Total Bilirubin (0.2-1.0) mg/dl AST (13-39) U/L ALT (7-52) U/L Alkaline Phosphatase (34-104) U/L Lactate Dehydrogenase (86-244) U/L Troponin I High Sens 98.4 H* (0-20) pg/ml C-Reactive Protein (0-0.5) mg/dl B-Natriuretic Peptide (0-100) pg/ml Total Protein (6.0-8.3) gm/dl Albumin (3.4-5.0) gm/dl Globulin (2.5-4.0) gm/dl Albumin/Globulin Ratio (0.9-2) POC Stool Occult Blood (Negative) SARS-CoV-2 (PCR) NEGATIVE (Negative) Influenza Type A (PCR) Negative (Neg) Influenza Type B (PCR) Negative (Neg) RSV (RT-PCR) Negative (Neg) Blood Type O Positive Antibody Screen NEGATIVE Direct Antiglob Test Negative (Negative) RODRÍGUEZ (IgG-AHG) Neg (Negative) RODRÍGUEZ, Polyspecific Neg (Negative) RODRÍGUEZ C3b, C3d 5 Min Neg (Negative) Crossmatch See Detail Administered Medications Pantoprazole Sodium 40 mg/ (Dextrose) 100 mls @ 20 mls/hr IV Q5H GURU Stop: 05/13/24 14:14 Last Admin: 04/13/24 16:13 Dose: 8 mg/hr, 20 mls/hr Documented By: SHB Insulin Aspart (Insulin Aspart Per Unit Charge) 0 units SC ACHS GURU Stop: 05/13/24 18:28 Last Admin: 04/13/24 19:23 Dose: Not Given Documented By: RIAN Discontinued Medications Hydrocortisone Sodium Succinate (Hydrocortisone Sod Succinate 100 Mg/2 Ml Vial) 100 mg IV NOW STA Stop: 04/13/24 14:19 Last Admin: 04/13/24 14:47 Dose: 100 mg Documented By: KAREN Bumetanide 0.5 mg/ Syringe 2 mls @ 4 mls/min IV ONE ONE Stop: 04/13/24 13:53 Last Admin: 04/13/24 16:13 Dose: 4 mls/min Documented By: KAREN Pantoprazole Sodium 80 mg/ (Dextrose) 120 mls @ 480 mls/hr IV NOW ONE Stop: 04/13/24 14:06 Last Infusion: 04/13/24 16:13 Dose: Infused Documented By: Admin: 04/13/24 14:44 Dose: 480 mls/hr Documented By: MARS Metoprolol Tartrate (Metoprolol Tartrate 1 Mg/Ml Vial) 5 mg IV NOW STA Stop: 04/13/24 13:53 Last Admin: 04/13/24 14:05 Dose: 5 mg Documented By: KAREN Pantoprazole Sodium (Pantoprazole Bolus/Drip) 1 each IV NOW STA Stop: 04/13/24 13:53 Last Admin: 04/13/24 14:48 Dose: 1 each Documented By: KAREN Imaging Data Radiologist's Impression: Chest X-Ray 04/13/24 11:53 XR chest 1V portable CLINICAL HISTORY: Chest pain, nonspecific COMPARISON STUDY: 11/17/2023 FINDINGS: Stable cardiomegaly with pulmonary vascular congestion. Stable mild opacity in the lung bases. No pneumothorax. IMPRESSION: 1. CHF. 2. Stable mild lung base opacity could represent consolidation, atelectasis, or small pleural effusions. ACT 112: Negative or not required by law. Electronically signed by: Alex Garcia M.D. 04/13/2024 1:18 PM Abdomen/Pelvis CT 04/13/24 15:00 INDICATION: Shortness of breath. Abdominal pain. COMPARISON: No relevant priors available. TECHNIQUE: Axial CT images of the chest, abdomen and pelvis were obtained without IV contrast. Coronal and sagittal reformations were reviewed. FINDINGS: Chest: The thoracic aorta appears normal in caliber. The heart is mildly enlarged. Coronary artery calcifications are present. Trace pericardial fluid. Small to moderate volume right and small volume left pleural effusions. No pneumothorax. No pathologically enlarged mediastinal or hilar lymph nodes. Mild to moderate diffuse interstitial opacities. No focal lobar pulmonary consolidation. Dependent atelectasis in the lung bases. No acute osseous abnormality evident. Degenerative changes in the spine. Abdomen and pelvis: The liver, gallbladder, spleen, pancreas and adrenal glands appear unremarkable. Limited evaluation secondary to motion artifact in the upper abdomen, multiple left renal lesions measuring up to 3 cm. Solitary left kidney. No hydronephrosis. No evidence of bowel obstruction/colitis/appendicitis. No free air. No drainable fluid collection. Fat containing umbilical hernia and ventral abdominal hernias. Negative for abdominal aortic aneurysm. The urinary bladder appears unremarkable. Fat-containing bilateral inguinal hernias. Nonspecific prominent right inguinal lymph node measuring 2.6 cm. No acute osseous abnormality evident. IMPRESSION: 1. Small to moderate volume right and small volume left pleural effusions with dependent atelectasis. 2. Mild to moderate diffuse interstitial opacities favored to represent fluid overload/edema. Follow-up as clinically relevant. 3. No acute process in the abdomen or pelvis. 4. Limited evaluation secondary to motion artifact in the upper abdomen, multiple left renal lesions measuring up to 3 cm. Follow-up on nonemergent basis with ultrasound Electronically signed by Slim Wayne 04-13-2024 4:[address] 04/13/24 15:00 INDICATION: Shortness of breath. Abdominal pain. COMPARISON: No relevant priors available. TECHNIQUE: Axial CT images of the chest, abdomen and pelvis were obtained without IV contrast. Coronal and sagittal reformations were reviewed. FINDINGS: Chest: The thoracic aorta appears normal in caliber. The heart is mildly enlarged. Coronary artery calcifications are present. Trace pericardial fluid. Small to moderate volume right and small volume left pleural effusions. No pneumothorax. No pathologically enlarged mediastinal or hilar lymph nodes. Mild to moderate diffuse interstitial opacities. No focal lobar pulmonary consolidation. Dependent atelectasis in the lung bases. No acute osseous abnormality evident. Degenerative changes in the spine. Abdomen and pelvis: The liver, gallbladder, spleen, pancreas and adrenal glands appear unremarkable. Limited evaluation secondary to motion artifact in the upper abdomen, multiple left renal lesions measuring up to 3 cm. Solitary left kidney. No hydronephrosis. No evidence of bowel obstruction/colitis/appendicitis. No free air. No drainable fluid collection. Fat containing umbilical hernia and ventral abdominal hernias. Negative for abdominal aortic aneurysm. The urinary bladder appears unremarkable. Fat-containing bilateral inguinal hernias. Nonspecific prominent right inguinal lymph node measuring 2.6 cm. No acute osseous abnormality evident. IMPRESSION: 1. Small to moderate volume right and small volume left pleural effusions with dependent atelectasis. 2. Mild to moderate diffuse interstitial opacities favored to represent fluid overload/edema. Follow-up as clinically relevant. 3. No acute process in the abdomen or pelvis. 4. Limited evaluation secondary to motion artifact in the upper abdomen, multiple left renal lesions measuring up to 3 cm. Follow-up on nonemergent basis with ultrasound Electronically signed by Slim Wayne 04-13-2024 4:27 PM Discharge Plan Visit Data Chief Complaint: Abnormal Labs/Diagnostic Testing Stated Complaint: EKG, SOB, FATIGUE, [facility] ED Provider: Sean Vega Discharge Problem: Acute hypoxic respiratory failure, Chronic diastolic CHF (congestive heart failure), CKD (chronic kidney disease), Pulmonary edema, Elevated troponin I level, Atrial fibrillation with rapid ventricular response, Thrombocytopenia, GIB (gastrointestinal bleeding) Patient Disposition: Admitted As Inpatient Discharge Instructions Interventions: ED Discharge Assessment Last Done: 04/13/24 18:18 Discharge Problem: CKD (chronic kidney disease) Qualifiers: Chronic kidney disease stage: stage 4 (GFR 15-29) Qualified Code(s): N18.4 - Chronic kidney disease, stage 4 (severe) Pulmonary edema Qualifiers: Chronicity: acute Qualified Code(s): J81.0 - Acute pulmonary edema GIB (gastrointestinal bleeding) Qualifiers: GI bleed type/associated pathology: unspecified gastrointestinal hemorrhage type Qualified Code(s): K92.2 - Gastrointestinal hemorrhage, unspecified
[2024-04-13 12:56] LABS: Hematocrit (blood only) 30.5 % (42.0-52.0); Hemoglobin 9.5 g/dl (14.0-18.0); Mean Corpuscular Hemoglobin 24.3 pg (25.0-34.0); Mean Corpuscular Hgb Conc 31.1 g/dL (32.0-36.0); RDW Coefficient of Variation 20.3 % (11.5-14.5); Red Blood Count 3.91 M/uL (4.70-6.10); White Blood Count 10.05 K/ul (4.8-10.8)
[2024-04-13 13:08] LABS: Albumin Globulin Ratio 1.1 (0.9-2); Albumin Level 2.7 gm/dl (3.4-5.0); BUN Creatinine Ratio 25.5 (10-20); Bilirubin,Total 2.1 mg/dl (0.2-1.0); Calcium 8.4 mg/dl (8.6-10.3); Creatinine Clr Calc Pharmacy 25.1 ml/min; Globulin 2.5 gm/dl (2.5-4.0); Total Protein 5.2 gm/dl (6.0-8.3)
[2024-04-13 13:16] LABS: Magnesium 2.4 mg/dl (1.7-2.4); Phosphorus 4.7 mg/dl (2.5-4.9)
[2024-04-13 13:19] LABS: Troponin I High Sensitivity 91.4 pg/ml (0-20)
--- NOTE | 2024-04-13 13:19 | XRay Report ---
XR chest 1V portable CLINICAL HISTORY: Chest pain, nonspecific COMPARISON STUDY: 11/17/2023 FINDINGS: Stable cardiomegaly with pulmonary vascular congestion. Stable mild opacity in the lung bas es. No pneumothorax. IMPRESSION: 1. CHF. 2. Stable mild lung base opacity could represent consolidation, atelectasis, or small pleural effusio ns. ACT 112: Negative or not required by law. Electronically signed by: Alex Garcia M.D. 04/13/2024 1:18 PM
[2024-04-13 13:23] LABS: Nucleated RBC # (auto) 0.03 K/uL (0.00-0.12); Nucleated RBC % (auto) 0.3 %; Platelet Count 63 K/uL (130-400)
[2024-04-13 13:25] LABS: Anisocytosis Present; Basophils # (auto) 0.01 K/uL (0.00-0.20); Basophils % (auto) 0.1 %; Immature Granulocytes # (auto) 0.17 K/uL (0.01-0.20); Immature Granulocytes % (auto) 1.7 %; Lymphocytes # (auto) 0.84 K/uL (1.20-3.40); Lymphocytes % (auto) 8.4 %; Monocytes # (auto) 0.41 K/uL (0.11-0.59); Monocytes % (auto) 4.1 %; Neutrophils # (auto) 8.62 K/uL (1.40-6.50); Neutrophils % (auto) 85.7 %; Ovalocytes 1+; Platelet Estimate Decreased (Normal); Polychromasia 1+
[2024-04-13] MEDS ORDERED: SODIUM CHLORIDE 0.9% 100 ML IV PRN (13:58)
[2024-04-13] MEDS ORDERED: SODIUM CHLORIDE 0.9% 50 ML IV PRN (13:58)
[2024-04-13] MEDS: METOPROLOL TARTRATE 1 MG/ML VIAL IV STA (14:05)
--- NOTE | 2024-04-13 14:06 | Electrocardiogram Report ---
Test Reason : Blood Pressure : */* mmHG Vent. Rate : 120 BPM Atrial Rate : * BPM P-R Int : * ms QRS Dur : 100 ms QT Int : 310 ms P-R-T Axes : * -17 102 degrees QTcB Int : 438 ms Atrial fibrillation with rapid ventricular response with premature ventricular or aberrantly conducte d complexes Incomplete right bundle branch block Nonspecific ST and T wave abnormality Abnormal ECG When compared with ECG of 17-Nov-2023 15:43, Nonspecific T wave abnormality no longer evident in Inferior leads T wave inversion now evident in Lateral leads Confirmed by Lc Mitchell ([id number]) on 04/13/2024 2:05:48 PM Referred By: Confirmed By: Lc Mitchell
[2024-04-13 14:13] LABS: Tear Drop Cells Occasional
--- NOTE | 2024-04-13 14:20 | History & Physical Report ---
Date of Service April 13, 2024 Assessment & Plan (1) Acute hypoxic respiratory failure: Plan: pulmonary edema from advanced CKD & chronic diastolic CHF? immune induced pneumonitis from Opdivo? infectious pneumonia? other? based on his CXR it is uncertain which is the primary process. check sed rate and crp; if both are normal this would not rule it out but would make Opdivo induced pneumonitis less likely. check COVID/flu/RSV test. plan for CT chest non-contrast for more information on his pulmonary complaints/status. (2) MARILEE (acute kidney injury): Plan: patient's baseline Creatinine in fall 2023 was 3 to 3.5. he has a solitary left kidney. recently his creatinine bibi to the low 4's. presented today with Cr 4.2. he had received IV bumex for volume overload in the ER earlier today by the ER attending. will recheck BMP later tonight and then again in am. will obtain CT a/p to rule out any obstruction from his cancer or other process. hold off on any further diuretics today. his renal function decline in his solitary kidney is of high concern. he has a failed RUE AV fistula. if renal function continues to deteriorate he may need HD initiation. there is mild acidosis noted on his labs today - consider starting sodium bicarbonate. plan for formal nephrology consultation tomorrow. care informally d/w Dr Timmons today by phone who follows Mr Guadalupe in the outpatie nt clinic. (3) Heme positive stool: Plan: minimally heme + per ER provider. no carin melena or BRBPR at home. H/H are lower than previous but his clinical presentation does not seem c/w acute GI bleed. [id number] - given the heme+ stool, trending down H/H, low platelets, etc reasonable to hold Eliquis for now and keep PPI drip that was started by ER attending serial CBC (4) Autoimmune hepatitis treated with steroids: Plan: patient had autoimmune hepatitis from his immunotherapy for his renal cell cancer in 2023 he had a change in his immunotherapy at that time and was initiated on prednisone for such remains on prednisone 10mg/day chronically with recent increase to 20mg/day about 1 week prior to presentation while here plan stress-dose steroids --> was given hydrocortisone 100mg x 1 in ER; will continue with hydrocortisone 50mg q8h scheduled hold prednisone (5) Microcytic anemia: Plan: Hb 9.5 today; was in the 12's in November although it is possible he has had other labs thru the Cancer Center since that time. Either way MCV has trended to <80. Recheck CBC tonight and then again in am. Check Fe studies while here. (6) Thrombocytopenia: Plan: New onset. Platelets were normal earlier this fall; now in the 60s. Differential - consumptive in the setting of GI bleeding vs recurrence of aut oimmune hepatitis from immunotherapy leading to poor platelet production vs due to Opdivo directly (low platelets are reported with such per Clin pharm vs nutritional deficiencies (b12/folate wnl in 12/15) vs other. Peripheral smear by pathology today without signs of TTP, etc. Repeat CBC tonight and again tomorrow. Hold Eliquis. No need for platelet infusion at this time. (7) Abnormal LFTs: Plan: h/o autoimmune hepatitis July 2023 due to immunotherapy for his renal cell ca IT at that time was stopped and prednisone initiated LFTs normalized and have been normal since then now LFTs are trending up if he is indeed volume overloaded from worsening renal function/diastolic CHF this could be partially explained by passive congestion of the liver could he be developing autoimmune hepatitis from the Opdivo? other cause ? plan for CT a/p - r/o mets to liver, r/o biliary cause, etc serial LFTs (8) Metastatic renal cell carcinoma: Plan: follows with Dr Grijalva, [facility] on Opdivo - last treatment 03/16/24 CT chest/abd/pelvis ordered to assess status of his cancer I am concerned that the Opdivo is contributing to his fatigue and potentially other issues that he presented with formal consult placed to Dr Grijalva for tomorrow (9) Elevated troponin I level: Plan: renal dysfunction/MARILEE can cause myocardial demand ischemia from possible volume overload as well as rapid a.fib will contribute no evidence of ACS (10) Hypothyroidism: Plan: TSH wnl cont synthroid (11) Chronic kidney disease, stage IV (severe): Plan: baseline Cr 3 to 3.5 now with concomitant MARILEE - see above discussion formal nephrology consult placed (12) Atrial fibrillation: Plan: hold Eliquis due to ?GI bleeding and heme + stool cont metoprolol BID telemetry (13) Chronic diastolic CHF (congestive heart failure): Plan: if he is indeed in volume overload suspect his renal dysfunction is the bigger culprit in such rather than diastolic dysfunction he follows with out of town cardiology in [facility] reviewed those notes -- he was due for repeat echo this March thus will obtain while here (14) SARAH (obstructive sleep apnea): Plan: cont CPAP with O2 blended (15) Hypertension: Plan: controlled with metoprolol monotherapy (16) Morbid obesity with BMI of 40.0-44.9, adult: Plan: BMI 42.7 (17) S/P TAVR (transcatheter aortic valve replacement): Plan: check valve function w/ echo while here Plan pt's updated at bedside full code care informally d/w nephrology (Dr Timmons, his primary operation supervisor) very complex care coordination today in this medically fragile gentleman History of Present Illness Chief Complaint: severe fatigue, weakness, dyspnea on exertion with minimal activity Primary Care Provider: Veronica Tucker MD 68yo male with stage 4 renal cell cancer, prior right-sided nephrectomy for renal cell cancer, permanent a.fib on Eliquis, TAVR status, hypothyroidism, morbid obesity, h/o autoimmune induced hepatitis/nephritis due to immune therapy treatment for his renal cell cancer, prior upper GI bleeding due to duodenal ulcer, and CKD stage 4 presents with nearly 1 month of extreme fatigue, weakness, very poor appetite, and dyspnea on exertion with walking minimal distances. During this time period he has continued to lose weight. He has lost about 40 pounds over the last 12+ months. Denies fevers/chills. Slight cough at times only. No URI symptoms. No abd pain, nausea, emesis, melena stool, BRBPR. His last Opdivo treatment at the [facility] was 03/16/25. He was scheduled for a treatment today but was sent into the ER due to abnormal blood work as well as his symptoms noted above. He follows with Dr Trista Grijalva for his cancer needs as well as Dr Alfredo Timmons for his kidney needs. Dr Timmons about 1 week ago asked Mr Guadalupe to increase his daily prednisone from 10mg/day to 20mg/day. This did not improve his fatigue or appetite. He mentions that at times of previous volume overload he typically has significant peripheral edema. At this time he only has baseline chronic mild edema of the right leg. Allergies Allergy/AdvReac Type Severity Reaction Status Date / Time No Known Allergies Allergy Verified 03/30/24 13:16 Home Medications Medication Instructions Recorded Confirmed Type apixaban 5 mg tablet 5 mg PO BID #60 tabs 11/11/18 04/13/24 History multivitamin 1 tab PO DAILY 11/11/18 04/13/24 History cholecalciferol (vitamin D3) 50 2,000 unit PO DAILY #30 tabs 10/15/22 04/13/24 History mcg (2,000 unit) tablet amoxicillin 500 mg capsule 2,000 mg PO DIRECTED PRN 1 HR 07/07/23 04/13/24 History PRIOR TO DENTAL APPT. betamethasone, augmented 0.05 % 1 applic topical BID PRN Skin 07/07/23 04/13/24 History topical cream Irritation levothyroxine 200 mcg tablet 200 mcg PO QAM 08/21/23 04/13/24 History ferrous sulfate 325 mg (65 mg 325 mg PO DAILY 11/05/23 04/13/24 History iron) tablet (iron) prednisone 10 mg tablet 10 mg PO DAILY 11/05/23 04/13/24 History pantoprazole 40 mg tablet,delayed 40 mg PO QAM 11/17/23 04/13/24 History release bumetanide 1 mg tablet 2 mg (2 x 1 mg) PO .COMPLEX #30 02/23/24 04/13/24 Rx tabs bumetanide 1 mg tablet 1 mg PO QAM #30 tabs 03/30/24 04/13/24 Rx metoprolol tartrate 50 mg tablet 50 mg PO UD 04/13/24 04/13/24 History Past Med/Surg History Problem List (Updated 04/14/24 @ 07:27 by Shivam Thurston MD) S/P TAVR (transcatheter aortic valve replacement) Morbid obesity with BMI of 40.0-44.9, adult Autoimmune hepatitis treated with steroids MARILEE (acute kidney injury) GIB (gastrointestinal bleeding) (Acute) Thrombocytopenia (Acute) Atrial fibrillation with rapid ventricular response (Acute) Chronic diastolic CHF (congestive heart failure) (Acute) Chronic kidney disease, stage IV (severe) Metastatic renal cell carcinoma Abnormal LFTs Thrombocytopenia Microcytic anemia Heme positive stool Acute hypoxic respiratory failure (Acute) Hypoxia (Acute) Elevated troponin I level (Acute) Pulmonary edema (Acute) CKD (chronic kidney disease) (Acute) Immunotherapy Medical History (Updated 04/14/24 @ 07:27 by Shivam Thurston MD) Atrial fibrillation SARAH (obstructive sleep apnea) Hypercholesterolemia Hypertension Hypothyroidism Acute GI bleeding 2nd duodenal ulcer - 2023 Coagulopathy Heart failure with preserved ejection fraction Renal cell carcinoma stage 4 CKD (chronic kidney disease) stage 4, GFR 15-29 ml/min Surgical History (Updated 04/14/24 @ 07:28 by Shivam Thurston MD) S/p nephrectomy right Family History (Updated 04/14/24 @ 07:00 by Shivam Thurston MD) Mother Cancer colon ca; age 76 Father CHF (congestive heart failure) age 78 Social History (Updated 04/14/24 @ 06:59 by Shivam Thurston MD) Smoking Status: Never smoker Do You Dip or Chew Tobacco: No; Hx Alcohol Use: No Hx Substance Use: No Preferred Language: Polish Communication Ability: Effective Housekeeper/Laundry Assistant Required: No Beliefs That Will Affect Care: None marital status: Current Living Situation: Spouse Current Living Situation Comment: live in [facility] near [facility] current occupational status: 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 How many Children do You have: 2 Feels Safe at Home: Yes Assistive Devices: Raised Toilet Seat Review of Systems Review of Systems: gen - weight loss - 40 pounds since 2022; no fevers or chills; severe loss of appetite, severe fatigue/weakness eyes - no visual changes HENT - no sore throat or URI symptoms CV - no chest pain pulm - dyspnea with minimal exertion, no significant cough; no dyspnea at rest; no wheezing GI - no abd pain or N/V; no diarrhea; no melena or BRBPR - no dysuria musculo - no diffuse myalgias or arthralgias endo - BSGs wnl neuro - no headaches psych - denies depression skin - no rashes Physical Exam Physical Exam: gen - very pleasant, no distress; morbidly obese eyes - PERRL HENT - MM slightly dry, no lesions neck - due to neck size unable to visualize JVD heart - tachy, irregularly irregular, s1 s2, no murmur lungs - mild/faint b/l basilar rales, no wheeze, no increased work of breathing abd - soft NT ND BS+; no HSM ext - right leg with <1+ edema, left leg trace edema vascular - pulses feet 2+ b/l psych - a/o x 3 musculo - no joint effusions neuro - strength 5/5 x 4 exts, DTRs 2+ b/l, mild fine tremor of arms noted Results & Data Results & Data Vital Signs (Past 12 Hours) Vital Signs Temp Pulse Pulse Resp BP BP Pulse Ox 04/13/24 14:05 108 H 107/80 04/13/24 13:32 114 H 04/13/24 13:00 112 H 19 91 04/13/24 13:00 119 H 19 102/79 91 04/13/24 11:50 36.5 C 110 H 20 126/85 91 O2 Del Method 04/13/24 14:05 04/13/24 13:32 04/13/24 13:00 Room Air 04/13/24 13:00 Room Air 04/13/24 11:50 Room Air Laboratory Results Laboratory Results - last 24 hr 04/13/24 04/13/24 04/13/24 12:23 13:01 14:52 WBC 10.05 RBC 3.91 L Hgb 9.5 L Hct 30.5 L MCV 78.0 L MCH 24.3 L MCHC 31.1 L RDW Std Deviation 54.0 H RDW Coeff of Nick 20.3 H Plt Count 63 L Immature Gran % (Auto) 1.7 Neut % (Auto) 85.7 Lymph % (Auto) 8.4 Haines % (Auto) 4.1 Eos % (Auto) 0.0 Baso % (Auto) 0.1 Reticulocyte % (Auto) 4.10 H Neut # (Auto) 8.62 H Lymph # (Auto) 0.84 L Haines # (Auto) 0.41 Eos # (Auto) 0.00 Baso # (Auto) 0.01 Reticulocyte # 0.160 H Immature Gran # (Auto) 0.17 Absolute Nucleated RBC 0.03 Nucleated RBC % (auto) 0.3 Platelet Estimate Decreased L Polychromasia 1+ Anisocytosis Present Tear Drop Cells Occasional Ovalocytes 1+ Peripher Smr Path Cons Pending Haptoglobin Pending PT Cancelled Pending INR Cancelled Pending APTT Cancelled Pending PTT Ratio Cancelled Pending Sodium 128 L Potassium 5.0 Chloride 102 Carbon Dioxide 16 L Anion Gap 10 BUN 108 H Creatinine 4.24 H Est Cr Clr Drug Dosing 25.1 eGFR 14.30 BUN/Creatinine Ratio 25.5 H Glucose 172 H Calcium 8.4 L Phosphorus 4.7 Magnesium 2.4 Total Bilirubin 2.1 H AST 56 H ALT 44 Alkaline Phosphatase 183 H Lactate Dehydrogenase 287 H Troponin I High Sens 91.4 H* Pending C-Reactive Protein Pending B-Natriuretic Peptide 690 H Total Protein 5.2 L Albumin 2.7 L Globulin 2.5 Albumin/Globulin Ratio 1.1 SARS-CoV-2 (PCR) Influenza Type A (PCR) Influenza Type B (PCR) RSV (RT-PCR) Blood Type Pending Antibody Screen Pending Direct Antiglob Test Pending RODRÍGUEZ (IgG-AHG) Pending RODRÍGUEZ, Polyspecific Pending RODRÍGUEZ C3b, C3d 5 Min Pending Crossmatch See Detail 04/13/24 15:10 WBC RBC Hgb Hct MCV MCH MCHC RDW Std Deviation RDW Coeff of Nick Plt Count Immature Gran % (Auto) Neut % (Auto) Lymph % (Auto) Haines % (Auto) Eos % (Auto) Baso % (Auto) Reticulocyte % (Auto) Neut # (Auto) Lymph # (Auto) Haines # (Auto) Eos # (Auto) Baso # (Auto) Reticulocyte # Immature Gran # (Auto) Absolute Nucleated RBC Nucleated RBC % (auto) Platelet Estimate Polychromasia Anisocytosis Tear Drop Cells Ovalocytes Peripher Smr Path Cons Haptoglobin PT INR APTT PTT Ratio Sodium Potassium Chloride Carbon Dioxide Anion Gap BUN Creatinine Est Cr Clr Drug Dosing eGFR BUN/Creatinine Ratio Glucose Calcium Phosphorus Magnesium Total Bilirubin AST ALT Alkaline Phosphatase Lactate Dehydrogenase Troponin I High Sens C-Reactive Protein B-Natriuretic Peptide Total Protein Albumin Globulin Albumin/Globulin Ratio SARS-CoV-2 (PCR) Pending Influenza Type A (PCR) Pending Influenza Type B (PCR) Pending RSV (RT-PCR) Pending Blood Type Antibody Screen Direct Antiglob Test RODRÍGUEZ (IgG-AHG) RODRÍGUEZ, Polyspecific RODRÍGUEZ C3b, C3d 5 Min Crossmatch Diagnostic Findings XR chest 1V portable CLINICAL HISTORY: Chest pain, nonspecific COMPARISON STUDY: 11/17/2023 FINDINGS: Stable cardiomegaly with pulmonary vascular congestion. Stable mild opacity in the lung bases. No pneumothorax. IMPRESSION: 1. CHF. 2. Stable mild lung base opacity could represent consolidation, atelectasis, or small pleural effusions. ACT 112: Negative or not required by law. Electronically signed by: Alex Garcia M.D. 04/13/2024 1:18 PM EKG - my reading - a.fib with RVR, no ST changes; PVC; incomplete RBBB Code Status & VTE Plan Code Status full code PG Care Time/CCT Total # of Minutes Spent Total Time Spent with Patient: Total time spent is greater than 50% in coordination of care (as documented) at patient's floor/unit and/or counseling patient: Coding Level of Care Code 41561 INT INP/OBS CARE 3/75MIN Diagnoses Acute hypoxic respiratory failure J96.01 MARILEE (acute kidney injury) N17.9 Heme positive stool R19.5 Autoimmune hepatitis treated with steroids K75.4 Microcytic anemia D50.9 Thrombocytopenia D69.6 Abnormal LFTs R79.89 Metastatic renal cell carcinoma C64.9 Elevated troponin I level R79.89 Hypothyroidism E03.9 Chronic kidney disease, stage IV (severe) N18.4 Atrial fibrillation I48.91 Atrial fibrillation type: unspecified Chronic diastolic CHF (congestive heart failure) I50.32 SARAH (obstructive sleep apnea) G47.33 Hypertension I10 Morbid obesity with BMI of 40.0-44.9, adult E66.01; Z68.41 S/P TAVR (transcatheter aortic valve replacement) Z95.2 (12) Atrial fibrillation Atrial fibrillation type: unspecified Qualified Code(s): I48.91 - Unspecified atrial fibrillation
[2024-04-13] MEDS: PANTOprazole 80 MG in DEXTROSE 5% 100 ML IV ONE (14:44)
[2024-04-13] MEDS: HYDROCORTISONE SOD SUCCINATE 100 MG/2 ML VIAL IV STA (14:47)
[2024-04-13] MEDS: PANTOPRAZOLE BOLUS/DRIP IV STA (14:48)
[2024-04-13 15:31] LABS: C Reactive Protein 3.06 mg/dl (0-0.5)
[2024-04-13 15:37] LABS: INR 1.3 (0.9-1.1); Partial Thromboplastin Ratio 1.6; Partial Thromboplastin Time 44 Seconds (21-31); Prothrombin Time 13.9 Seconds (9.0-12.0)
[2024-04-13 16:02] LABS: Influenza A virus by PCR Negative (Neg); Influenza B virus by PCR Negative (Neg); RSV by PCR Negative (Neg); SARS CoV2 RNA(COVID-19) Ceph NEGATIVE (Negative)
[2024-04-13] MEDS: BUMETANIDE 0.5 MG in SYRINGE 0 ML IV ONE (16:13)
[2024-04-13] MEDS: PANTOprazole 40 MG in DEXTROSE 5% MINI-B 100 ML IV SCH (16:13)
--- NOTE | 2024-04-13 16:28 | CT Scan Report ---
INDICATION: Shortness of breath. Abdominal pain. COMPARISON: No relevant priors available. TECHNIQUE: Axial CT images of the chest, abdomen and pelvis were obtained without IV contrast. Coronal and sagittal reformations were reviewed. FINDINGS: Chest: The thoracic aorta appears normal in caliber. The heart is mildly enlarged. Coronary artery calcifications are present. Trace pericardial fluid. Small to moderate volume right and small volume left pleural effusions. No pneumothorax. No pathologically enlarged mediastinal or hilar lymph nodes. Mild to moderate diffuse interstitial opacities. No focal lobar pulmonary consolidation. Dependent atelectasis in the lung bases. No acute osseous abnormality evident. Degenerative changes in the spine. Abdomen and pelvis: The liver, gallbladder, spleen, pancreas and adrenal glands appear unremarkable. Limited evaluation secondary to motion artifact in the upper abdomen, multiple left renal lesions measuring up to 3 cm. Solitary left kidney. No hydronephrosis. No evidence of bowel obstruction/colitis/appendicitis. No free air. No drainable fluid collection. Fat containing umbilical hernia and ventral abdominal hernias. Negative for abdominal aortic aneurysm. The urinary bladder appears unremarkable. Fat-containing bilateral inguinal hernias. Nonspecific prominent right inguinal lymph node measuring 2.6 cm. No acute osseous abnormality evident. IMPRESSION: 1. Small to moderate volume right and small volume left pleural effusions with dependent atelectasis. 2. Mild to moderate diffuse interstitial opacities favored to represent fluid overload/edema. Follow-up as clinically relevant. 3. No acute process in the abdomen or pelvis. 4. Limited evaluation secondary to motion artifact in the upper abdomen, multiple left renal lesions measuring up to 3 cm. Follow-up on nonemergent basis with ultrasound Electronically signed by Slim Wayne 04-13-2024 4:27 PM
[2024-04-13] MEDS ORDERED: ONDANSETRON INJ 2 MG/ML 2 ML VIAL IV PRN (18:29)
[2024-04-13] MEDS ORDERED: CARBOHYDRATES FOR HYPOGLYCEMIA PO PRN (18:45)
[2024-04-13] MEDS ORDERED: GLUCAGON FOR INJ 1 MG VIAL SQ PRN (18:45)
[2024-04-13] MEDS ORDERED: GLUCOSE 40% GEL 15 GM TUBE PO PRN (18:45)
[2024-04-13] MEDS ORDERED: GLUCOSE 10 TAB/TUBE PO PRN (18:45)
[2024-04-13] MEDS ORDERED: DEXTROSE 50% 50 ML SYRINGE IV PRN (18:45)
[2024-04-13] MEDS: INSULIN ASPART PER UNIT CHARGE SC SCH (19:23)
[2024-04-13 20:11] LABS: Hematocrit (blood only) 30.2 % (42.0-52.0); Hemoglobin 9.5 g/dl (14.0-18.0); Mean Corpuscular Hemoglobin 24.9 pg (25.0-34.0); Mean Corpuscular Hgb Conc 31.5 g/dL (32.0-36.0); Mean Corpuscular Volume 79.1 fL (80.0-100.0); Nucleated RBC # (auto) 0.02 K/uL (0.00-0.12); Nucleated RBC % (auto) 0.2 %; Platelet Count 58 K/uL (130-400); RDW Coefficient of Variation 19.9 % (11.5-14.5); Red Blood Count 3.82 M/uL (4.70-6.10); White Blood Count 8.55 K/ul (4.8-10.8)
[2024-04-13 20:24] LABS: Calcium 8.2 mg/dl (8.6-10.3); Potassium 4.9 mmol/L (3.5-5.1)
[2024-04-13 20:34] LABS: BUN Creatinine Ratio 24.7 (10-20); Creatinine Clr Calc Pharmacy 23.3 ml/min
[2024-04-13] MEDS: METOPROLOL TARTRATE 50 MG TAB PO SCH (20:42)
[2024-04-13] MEDS: HYDROCORTISONE SOD 50 MG in SYRINGE 0 ML IV SCH (21:56)
[2024-04-13] MEDS: SODIUM BICARBONATE 650 MG TAB PO SCH (22:00)
[2024-04-13] MEDS ORDERED: HYDROCORTISONE SOD SUCCINATE 100 MG/2 ML VIAL IV SCH (22:00)
[2024-04-14] MEDS: LEVOTHYROXINE SODIUM 200 MCG TABLET PO SCH (06:03)
[2024-04-14 06:46] LABS: Hematocrit (blood only) 29.2 % (42.0-52.0); Hemoglobin 9.2 g/dl (14.0-18.0); Mean Corpuscular Hemoglobin 24.3 pg (25.0-34.0); Mean Corpuscular Hgb Conc 31.5 g/dL (32.0-36.0); Mean Corpuscular Volume 77.2 fL (80.0-100.0); Platelet Count 59 K/uL (130-400); RDW Coefficient of Variation 19.9 % (11.5-14.5); RDW Standard Deviation 53.9 fL (36.4-46.3); Red Blood Count 3.78 M/uL (4.70-6.10); White Blood Count 6.57 K/ul (4.8-10.8)
[2024-04-14 06:57] LABS: BUN Creatinine Ratio 25.2 (10-20); Calcium 8.7 mg/dl (8.6-10.3); Creatinine Clr Calc Pharmacy 23.4 ml/min; Potassium 4.7 mmol/L (3.5-5.1)
--- NOTE | 2024-04-14 08:08 | Oncology Consultation ---
Date of Consultation April 14, 2024 Assessment & Plan (1) Anemia: (2) Congestive heart failure (CHF): (3) End stage chronic kidney disease: (4) Thrombocytopenia: Plan Clinical picture concerning for immunotherapy related side effects with worsening fatigue, new onset thrombocytopenia, worsening baseline renal function. Anemia likely multifactorial due to renal disease, GI bleeding and immunotherapy. Patient has a prior history of immunotherapy induced hepatitis which makes him high risk for other immunotherapy induced side effects. - Recommend switching from hydrocortisone to methylprednisolone 1 mg/kg/day. -Obtain B12 and folate levels to rule out nutritional component of thrombocytopenia -Obtain Lauren test, reticulocyte count, haptoglobin to rule out hemolysis Thank you for this consult. Will continue to follow while he is in the hospital. Please feel free to call if you have any other questions. History of Present Illness Reason for Consultation: stage 4 RCC, side effects from Opdivo? Attending Physician: Kanu Gutiérrez History of Present Illness Mr. Guadalupe is a 68-year-old gentleman with history of metastatic renal cell carcinoma currently on maintenance Opdivo who was admitted to [facility] with worsening fatigue, poor appetite and shortness of breath w ith exertion. He states the symptoms started shortly after his last Opdivo infusion on 03/16/2024. He indicates that he complained to Dr. Timmons about symptoms who increased dose of prednisone from 10 mg to 20 mg p.o. daily. States his symptoms did not improve with increased dose of prednisone. Labs revealed worsening anemia and thrombocytopenia with hemoglobin of 9.5, hematocrit 30.2, platelet count of 58,000. Renal function also slightly worsened with BUN of 113, creatinine of 4.5. FOBT was positive. Evaluated by nephrology who recommended starting hemodialysis. Allergies Allergy/AdvReac Type Severity Reaction Status Date / Time No Known Allergies Allergy Verified 03/30/24 13:16 Home Medications Medication Instructions Recorded Confirmed Type apixaban 5 mg tablet 5 mg PO BID #60 tabs 11/11/18 04/13/24 History multivitamin 1 tab PO DAILY 11/11/18 04/13/24 History cholecalciferol (vitamin D3) 50 2,000 unit PO DAILY #30 tabs 10/15/22 04/13/24 History mcg (2,000 unit) tablet amoxicillin 500 mg capsule 2,000 mg PO DIRECTED PRN 1 HR 07/07/23 04/13/24 History PRIOR TO DENTAL APPT. betamethasone, augmented 0.05 % 1 applic topical BID PRN Skin 07/07/23 04/13/24 History topical cream Irritation levothyroxine 200 mcg tablet 200 mcg PO QAM 08/21/23 04/13/24 History ferrous sulfate 325 mg (65 mg 325 mg PO DAILY 11/05/23 04/13/24 History iron) tablet (iron) prednisone 10 mg tablet 10 mg PO DAILY 11/05/23 04/13/24 History pantoprazole 40 mg tablet,delayed 40 mg PO QAM 11/17/23 04/13/24 History release bumetanide 1 mg tablet 2 mg (2 x 1 mg) PO .COMPLEX #30 02/23/24 04/13/24 Rx tabs bumetanide 1 mg tablet 1 mg PO QAM #30 tabs 03/30/24 04/13/24 Rx metoprolol tartrate 50 mg tablet 50 mg PO UD 04/13/24 04/13/24 History Patient History Medical History Atrial fibrillation SARAH (obstructive sleep apnea) Hypercholesterolemia Hypertension Hypothyroidism Acute GI bleeding 2nd duodenal ulcer - 2023 Coagulopathy Heart failure with preserved ejection fraction Renal cell carcinoma stage 4 CKD (chronic kidney disease) stage 4, GFR 15-29 ml/min Surgical History S/p nephrectomy right Family History Mother Cancer colon ca; age 76 Father CHF (congestive heart failure) age 78 Social History Smoking Status: Never smoker Do You Dip or Chew Tobacco: No; Hx Alcohol Use: No Hx Substance Use: No Preferred Language: Vietnamese Communication Ability: Effective Grinding Operator Required: No Beliefs That Will Affect Care: None marital status: Current Living Situation: Spouse Current Living Situation Comment: live in [facility] near [facility] current occupational status: 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
[2024-04-14] MEDS: MULTIVITAMIN TAB PO SCH (08:33)
[2024-04-14 10:25] LABS: Albumin Level 2.7 gm/dl (3.4-5.0); Bilirubin,Total 2.2 mg/dl (0.2-1.0)
[2024-04-14 10:44] LABS: Ferritin 362.1 ng/ml (8-388)
[2024-04-14] MEDS: FUROSEMIDE 40 MG/4 ML VIAL IV SCH (11:36)
--- NOTE | 2024-04-14 11:47 | Nephrology Consultation ---
Date of Consultation April 14, 2024 Assessment & Plan (1) End stage chronic kidney disease: * ESKD due to solitary kidney, hypertensive nephrosclerosis/obesity * Patient presents w/ CHF in the setting of kidney failure and progressive azotemia * I have spoken w/ vascular surgery. They will place IJ TCC within next 48 hours * Will resume loop diuretic therapy to promote diuresis * Monitor BMP, UO * Consult case management to set up outpatient HD at [facility] (2) Congestive heart failure (CHF): * Symptomatically improved since admission * Will schedule furosemide 40 mg IV BID (3) Anemia: * Will provide IV iron, SCOTT w/ HD when started (4) Metastatic renal cell carcinoma: * On nivolumab therapy (5) Atrial fibrillation with rapid ventricular response: (6) S/P TAVR (transcatheter aortic valve replacement): History of Present Illness Reason for Consultation: CKD, CHF Attending Physician: Kanu Gutiérrez History of Present Illness Mr. Guadalupe is a 68 year old white male who is seen at the request of the [facility] hospitalist service for evaluation of CKD and CHF. Information for the HPI is obtained from direct patient interview and review of the EMR. HPI is summarized as follows: Mr. Guadalupe required R nephrectomy due to RCCA. Unfortunately he was later found to have recurrence in his L kidney and has been on Opdivo therapy. This was complicated by immune hepatitis requiring hospitalization and steroid therapy. He is now maintained on nivolumab alone. His baseline Cr has risen to 3.4. Mr. Guadalupe underwent R BC AVF creation 10/21/23 at [facility]. Unfortunately this has thrombosed and is no longer functional. Mr. Guadalupe presented to [facility] EMR yesterday for evaluation of progressive dyspnea. He was found to have CHF w/ small bilateral pleural effusions. Creatinine has risen to 4.58 w/ BUN 113. Bumex 0.5 mg IV x1 was administered and patient diuresed 600 cc. Further diuretic therapy was held as it was felt that patient would likely require initiation of HD. Allergies Allergy/AdvReac Type Severity Reaction Status Date / Time No Known Allergies Allergy Verified 03/30/24 13:16 Home Medications Medication Instructions Recorded Confirmed Type apixaban 5 mg tablet 5 mg PO BID #60 tabs 11/11/18 04/13/24 History multivitamin 1 tab PO DAILY 11/11/18 04/13/24 History cholecalciferol (vitamin D3) 50 2,000 unit PO DAILY #30 tabs 10/15/22 04/13/24 History mcg (2,000 unit) tablet amoxicillin 500 mg capsule 2,000 mg PO DIRECTED PRN 1 HR 07/07/23 04/13/24 History PRIOR TO DENTAL APPT. betamethasone, augmented 0.05 % 1 applic topical BID PRN Skin 07/07/23 04/13/24 History topical cream Irritation levothyroxine 200 mcg tablet 200 mcg PO QAM 08/21/23 04/13/24 History ferrous sulfate 325 mg (65 mg 325 mg PO DAILY 11/05/23 04/13/24 History iron) tablet (iron) prednisone 10 mg tablet 10 mg PO DAILY 11/05/23 04/13/24 History pantoprazole 40 mg tablet,delayed 40 mg PO QAM 11/17/23 04/13/24 History release bumetanide 1 mg tablet 2 mg (2 x 1 mg) PO .COMPLEX #30 02/23/24 04/13/24 Rx tabs bumetanide 1 mg tablet 1 mg PO QAM #30 tabs 03/30/24 04/13/24 Rx metoprolol tartrate 50 mg tablet 50 mg PO UD 04/13/24 04/13/24 History Patient History Medical History Atrial fibrillation SARAH (obstructive sleep apnea) Hypercholesterolemia Hypertension Hypothyroidism Acute GI bleeding 2nd duodenal ulcer - 2023 Coagulopathy Heart failure with preserved ejection fraction Renal cell carcinoma stage 4 CKD (chronic kidney disease) stage 4, GFR 15-29 ml/min Surgical History S/p nephrectomy right Family History Mother Cancer colon ca; age 76 Father CHF (congestive heart failure) age 78 Social History Smoking Status: Never smoker Do You Dip or Chew Tobacco: No; Hx Alcohol Use: No Hx Substance Use: No Preferred Language: Zambian Communication Ability: Effective Scorer Single Required: No Beliefs That Will Affect Care: None marital status: Current Living Situation: Spouse Current Living Situation Comment: live in [facility] near [facility] current occupational status: 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 [facility] How many Children do You have: 2 Feels Safe at Home: Yes Safety Concerns: Feels Safe At This Time Assistive Devices: Raised Toilet Seat Review of Systems Constitutional: no fever Eyes: no problem reported Ear, Nose, Mouth, Throat: no problem reported Respiratory: + dyspnea and + dyspnea on exertion Cardiovascular: no chest pain Gastrointestinal: no abdominal pain, no nausea, no vomiting and no diarrhea/loose stools Genitourinary: no dysuria or no urinary hesitancy Integumentary: no rash Physical Exam Constitutional: not in distress Eyes: PERRL, conjunctivae normal, anicteric sclerae ENMT: external ear and nose normal, oropharynx normal Neck: trachea midline, no thyromegaly Respiratory: no respiratory distress Auscultation: + diminished lung sounds (L base) Cardiovascular: Rate/Rhythm: + irregularly irregular (no rub) Extremities: + edema (tense bilateral LE edema) and + AV fistula (R BC AVF - thrombosed) Gastrointestinal (Abdomen): normal bowel sounds, soft, nontender, no hepatosplenomegaly Neurologic: awake; not confused Results & Data Vital Signs (Past 12 Hours) Vital Signs Temp Pulse Pulse Resp BP Pulse Ox O2 Del Method 04/14/24 11:06 36.4 C L 104 H 19 117/83 97 Room Air 04/14/24 09:44 104 H 04/14/24 08:11 36.5 C 100 H 17 132/93 93 Room Air 04/14/24 02:57 36.5 C 96 H 20 111/80 98 BiPAP 04/14/24 02:12 111 H 23 98 04/14/24 01:09 Nasal Cannula, CPAP 04/14/24 01:04 111 H O2 Flow Rate 04/14/24 11:06 04/14/24 09:44 04/14/24 08:11 04/14/24 02:57 04/14/24 02:12 2 04/14/24 01:09 1 04/14/24 01:04 Laboratory Results Laboratory Results WBC 6.57 K/ul (4.8-10.8) 04/14/24 06:02 RBC 3.78 M/uL (4.70-6.10) L 04/14/24 06:02 Hgb 9.2 g/dl (14.0-18.0) L 04/14/24 06:02 Hct 29.2 % (42.0-52.0) L 04/14/24 06:02 MCV 77.2 fL (80.0-100.0) L 04/14/24 06:02 MCH 24.3 pg (25.0-34.0) L 04/14/24 06:02 MCHC 31.5 g/dL (32.0-36.0) L 04/14/24 06:02 RDW Std Deviation 53.9 fL (36.4-46.3) H 04/14/24 06:02 RDW Coeff of Nick 19.9 % (11.5-14.5) H 04/14/24 06:02 Plt Count 59 K/uL (130-400) L 04/14/24 06:02 Immature Gran % (Auto) 1.7 % 04/13/24 12:23 Neut % (Auto) 85.7 % 04/13/24 12:23 Lymph % (Auto) 8.4 % 04/13/24 12:23 [place] % (Auto) 4.1 % 04/13/24 12:23 Eos % (Auto) 0.0 % 04/13/24 12:23 Baso % (Auto) 0.1 % 04/13/24 12:23 Reticulocyte % (Auto) 4.10 % (0.50-2.00) H 04/13/24 12:23 Neut # (Auto) 8.62 K/uL (1.40-6.50) H 04/13/24 12:23 Lymph # (Auto) 0.84 K/uL (1.20-3.40) L 04/13/24 12:23 [place] # (Auto) 0.41 K/uL (0.11-0.59) 04/13/24 12:23 Eos # (Auto) 0.00 K/uL (0.00-0.50) 04/13/24 12:23 Baso # (Auto) 0.01 K/uL (0.00-0.20) 04/13/24 12:23 Reticulocyte # 0.160 10^6/uL (0.020-0.100) H 04/13/24 12:23 Immature Gran # (Auto) 0.17 K/uL (0.01-0.20) 04/13/24 12:23 Absolute Nucleated RBC 0.02 K/uL (0.00-0.12) 04/13/24 19:55 Nucleated RBC % (auto) 0.2 % 04/13/24 19:55 Platelet Estimate Decreased (Normal) L 04/13/24 12:23 Polychromasia 1+ 04/13/24 12:23 Anisocytosis Present 04/13/24 12:23 Tear Drop Cells Occasional 04/13/24 12:23 Ovalocytes 1+ 04/13/24 12:23 Peripher Smr Path Cons 04/13/24 12:23 ESR 15 mm/hr (0-20) 04/13/24 12:23 PT 13.9 Seconds (9.0-12.0) H 04/13/24 14:52 INR 1.3 (0.9-1.1) H 04/13/24 14:52 APTT 44 Seconds (21-31) H 04/13/24 14:52 PTT Ratio 1.6 04/13/24 14:52 Sodium 129 mmol/L (136-145) L 04/14/24 06:02 Potassium 4.7 mmol/L (3.5-5.1) 04/14/24 06:02 Chloride 102 mmol/L (98-107) 04/14/24 06:02 Carbon Dioxide 16 mmol/L (21-32) L 04/14/24 06:02 Anion Gap 11 (3-11) 04/14/24 06:02 BUN 115 mg/dl (6-23) H 04/14/24 06:02 Creatinine 4.56 mg/dl (0.6-1.4) H* 04/14/24 06:02 Est Cr Clr Drug Dosing 23.4 ml/min 04/14/24 06:02 eGFR 13.11 04/14/24 06:02 BUN/Creatinine Ratio 25.2 (10-20) H 04/14/24 06:02 Glucose 157 mg/dl (70-99(Fasting)) H 04/14/24 06:02 POC Glucose 154 mg/dl (70-99) H 04/14/24 08:05 Calcium 8.7 mg/dl (8.6-10.3) 04/14/24 06:02 Phosphorus 4.7 mg/dl (2.5-4.9) 04/13/24 12:23 Magnesium 2.4 mg/dl (1.7-2.4) 04/13/24 12:23 Iron 20 mcg/dl (35-175) L 04/14/24 06:02 TIBC 340 mcg/dl (250-450) 04/14/24 06:02 Transferrin 243 mg/dl (200-360) 04/14/24 06:02 Transferrin % Sat 6 % (20-50) L 04/14/24 06:02 Ferritin 362.1 ng/ml (8-388) 04/14/24 06:02 Total Bilirubin 2.2 mg/dl (0.2-1.0) H 04/14/24 06:02 Direct Bilirubin 1.0 mg/dl (0-0.2) H 04/14/24 06:02 AST 39 U/L (13-39) 04/14/24 06:02 ALT 36 U/L (7-52) 04/14/24 06:02 Alkaline Phosphatase 140 U/L (34-104) H 04/14/24 06:02 Ammonia 47.0 umol/L (18-72) 04/13/24 19:43 Lactate Dehydrogenase 287 U/L (86-244) H 04/13/24 12:23 Troponin I High Sens 98.4 pg/ml (0-20) H* 04/13/24 14:52 C-Reactive Protein 3.06 mg/dl (0-0.5) H 04/13/24 12:23 B-Natriuretic Peptide 690 pg/ml (0-100) H 04/13/24 13:01 Total Protein 5.0 gm/dl (6.0-8.3) L 04/14/24 06:02 Albumin 2.7 gm/dl (3.4-5.0) L 04/14/24 06:02 Globulin 2.5 gm/dl (2.5-4.0) 04/13/24 12:23 Albumin/Globulin Ratio 1.1 (0.9-2) 04/13/24 12:23 POC Stool Occult Blood Positive (Negative) A 04/13/24 14:04 SARS-CoV-2 (PCR) NEGATIVE (Negative) 04/13/24 15:10 Influenza Type A (PCR) Negative (Neg) 04/13/24 15:10 Influenza Type B (PCR) Negative (Neg) 04/13/24 15:10 RSV (RT-PCR) Negative (Neg) 04/13/24 15:10 Blood Type O Positive 04/13/24 14:52 Antibody Screen NEGATIVE 04/13/24 14:52 Direct Antiglob Test Negative (Negative) 04/13/24 14:52 RODRÍGUEZ (IgG-AHG) Neg (Negative) 04/13/24 14:52 RODRÍGUEZ, Polyspecific Neg (Negative) 04/13/24 14:52 RODRÍGUEZ C3b, C3d 5 Min Neg (Negative) 04/13/24 14:52 Crossmatch See Detail 04/13/24 14:52 Impressions Chest X-Ray 04/13/24 11:53 XR chest 1V portable CLINICAL HISTORY: Chest pain, nonspecific COMPARISON STUDY: 11/17/2023 FINDINGS: Stable cardiomegaly with pulmonary vascular congestion. Stable mild opacity in the lung bases. No pneumothorax. IMPRESSION: 1. CHF. 2. Stable mild lung base opacity could represent consolidation, atelectasis, or small pleural effusions. ACT 112: Negative or not required by law. Electronically signed by: Alex Garcia M.D. 04/13/2024 1:18 PM Abdomen/Pelvis CT 04/13/24 15:00 INDICATION: Shortness of breath. Abdominal pain. COMPARISON: No relevant priors available. TECHNIQUE: Axial CT images of the chest, abdomen and pelvis were obtained without IV contrast. Coronal and sagittal reformations were reviewed. FINDINGS: Chest: The thoracic aorta appears normal in caliber. The heart is mildly enlarged. Coronary artery calcifications are present. Trace pericardial fluid. Small to moderate volume right and small volume left pleural effusions. No pneumothorax. No pathologically enlarged mediastinal or hilar lymph nodes. Mild to moderate diffuse interstitial opacities. No focal lobar pulmonary consolidation. Dependent atelectasis in the lung bases. No acute osseous abnormality evident. Degenerative changes in the spine. Abdomen and pelvis: The liver, gallbladder, spleen, pancreas and adrenal glands appear unremarkable. Limited evaluation secondary to motion artifact in the upper abdomen, multiple left renal lesions measuring up to 3 cm. Solitary left kidney. No hydronephrosis. No evidence of bowel obstruction/colitis/appendicitis. No free air. No drainable fluid collection. Fat containing umbilical hernia and ventral abdominal hernias. Negative for abdominal aortic aneurysm. The urinary bladder appears unremarkable. Fat-containing bilateral inguinal hernias. Nonspecific prominent right inguinal lymph node measuring 2.6 cm. No acute osseous abnormality evident. IMPRESSION: 1. Small to moderate volume right and small volume left pleural effusions with dependent atelectasis. 2. Mild to moderate diffuse interstitial opacities favored to represent fluid overload/edema. Follow-up as clinically relevant. 3. No acute process in the abdomen or pelvis. 4. Limited evaluation secondary to motion artifact in the upper abdomen, multiple left renal lesions measuring up to 3 cm. Follow-up on nonemergent basis with ultrasound Electronically signed by Slim Wayne 04-13-2024 4:[address] 04/13/24 15:00 INDICATION: Shortness of breath. Abdominal pain. COMPARISON: No relevant priors available. TECHNIQUE: Axial CT images of the chest, abdomen and pelvis were obtained without IV contrast. Coronal and sagittal reformations were reviewed. FINDINGS: Chest: The thoracic aorta appears normal in caliber. The heart is mildly enlarged. Coronary artery calcifications are present. Trace pericardial fluid. Small to moderate volume right and small volume left pleural effusions. No pneumothorax. No pathologically enlarged mediastinal or hilar lymph nodes. Mild to moderate diffuse interstitial opacities. No focal lobar pulmonary consolidation. Dependent atelectasis in the lung bases. No acute osseous abnormality evident. Degenerative changes in the spine. Abdomen and pelvis: The liver, gallbladder, spleen, pancreas and adrenal glands appear unremarkable. Limited evaluation secondary to motion artifact in the upper abdomen, multiple left renal lesions measuring up to 3 cm. Solitary left kidney. No hydronephrosis. No evidence of bowel obstruction/colitis/appendicitis. No free air. No drainable fluid collection. Fat containing umbilical hernia and ventral abdominal hernias. Negative for abdominal aortic aneurysm. The urinary bladder appears unremarkable. Fat-containing bilateral inguinal hernias. Nonspecific prominent right inguinal lymph node measuring 2.6 cm. No acute osseous abnormality evident. IMPRESSION: 1. Small to moderate volume right and small volume left pleural effusions with dependent atelectasis. 2. Mild to moderate diffuse interstitial opacities favored to represent fluid overload/edema. Follow-up as clinically relevant. 3. No acute process in the abdomen or pelvis. 4. Limited evaluation secondary to motion artifact in the upper abdomen, multiple left renal lesions measuring up to 3 cm. Follow-up on nonemergent basis with ultrasound Electronically signed by Slim Wayne 04-13-2024 4:27 PM PG Care Time/CCT Total # of Minutes Spent Total Time Spent with Patient: Total time spent is greater than 50% in coordination of care (as documented) at patient's floor/unit and/or counseling patient: Coding Level of Care Code 65395 IN/OBS CONSULT LVL 5,80M Diagnoses End stage chronic kidney disease N18.6 Congestive heart failure (CHF) I50.9 Anemia D64.9 Metastatic renal cell carcinoma C64.9 Atrial fibrillation with rapid ventricular response I48.91 S/P TAVR (transcatheter aortic valve replacement) Z95.2
--- NOTE | 2024-04-14 12:41 | XCELERA ---
[id number] \\[id number]
--- NOTE | 2024-04-14 13:25 | Podiatry Consultation ---
Date of Consultation April 14, 2024 Assessment & Plan (1) Non-pressure chronic ulcer of right heel and midfoot with fat layer exposed: Plan Non-pressure chronic ulcer right heel x 2: Mechanical removal loose hyperkeratotic tissue and eschar from the wound bed. While eschar remains in place to the more proximal wound will continue to apply Betadine to the both wounds once daily. Should this eschar auto debridement or require removal will likely transition to Santyl for the primary wound. -Order: Once daily application of a dry dressing to the right heel. Okay to use bordered foam dressing in place. -Okay to weight-bear as tolerated in normal shoe gear. -No indication for further diagnostic imaging of the right foot his wounds remain relatively superficial. CT angiogram from [facility] 02/19/2023 showing patent bilateral iliofemoral arteries with mild calcified atherosclerosis. Will reevaluate pedal pulses and check bedside Doppler for pedal pulses. -No indication for podiatric surgical intervention. Thank you for consulting podiatry to aid in the care of this patient. I will continue to follow his progress while he remains in the hospital and recommend close follow-up in the wound care center following discharge. History of Present Illness Reason for Consultation: Right heel wound x 2 Attending Physician: Kanu Gutiérrez History of Present Illness Chase is a 68-year-old male past medical history significant for stage IV renal cell carcinoma, right-sided nephrectomy A-fib on ,, morbid obesity history of upper GI bleed, CKD stage IV. Patient presents to the emergency department at [facility] with increased fatigue, weakness and SOB with exertion starting around [place]. Denies nausea vomiting fever chills. Primary service managing acute hypoxic respiratory failure, MARILEE, heme positive stool, autoimmune hepatitis, microcytic anemia, thrombocytopenia, abnormal LFTs, Metastatic renal cell carcinoma, elevated troponin I level, hypothyroidism, CHF, SARAH, Hypertension, obesity, s/p TVAR. Podiatry consulted to evaluate right heel wound. Patient reports this started at least 2 months ago with unprovoked blister formation x2 to the medial right heel. Blistered areas were left intact by the patient however eventually popped and drained clear fluid. He then developed a dry stable scab in both locations. He and his have not noticed any notable drainage from either location. Has not been dressing. Denies previous medical treatment for the wounds. Denies issues with local soft tissue infection. Denies pain to the bilateral foot. Reports numbness to the bilateral foot which is notably increased since initiating chemotherapy. Allergies Allergy/AdvReac Type Severity Reaction Status Date / Time No Known Allergies Allergy Verified 03/30/24 13:16 Home Medications Medication Instructions Recorded Confirmed Type apixaban 5 mg tablet 5 mg PO BID #60 tabs 11/11/18 04/13/24 History multivitamin 1 tab PO DAILY 11/11/18 04/13/24 History cholecalciferol (vitamin D3) 50 2,000 unit PO DAILY #30 tabs 10/15/22 04/13/24 History mcg (2,000 unit) tablet amoxicillin 500 mg capsule 2,000 mg PO DIRECTED PRN 1 HR 07/07/23 04/13/24 History PRIOR TO DENTAL APPT. betamethasone, augmented 0.05 % 1 applic topical BID PRN Skin 07/07/23 04/13/24 History topical cream Irritation levothyroxine 200 mcg tablet 200 mcg PO QAM 08/21/23 04/13/24 History ferrous sulfate 325 mg (65 mg 325 mg PO DAILY 11/05/23 04/13/24 History iron) tablet (iron) prednisone 10 mg tablet 10 mg PO DAILY 11/05/23 04/13/24 History pantoprazole 40 mg tablet,delayed 40 mg PO QAM 11/17/23 04/13/24 History release bumetanide 1 mg tablet 2 mg (2 x 1 mg) PO .COMPLEX #30 02/23/24 04/13/24 Rx tabs bumetanide 1 mg tablet 1 mg PO QAM #30 tabs 03/30/24 04/13/24 Rx metoprolol tartrate 50 mg tablet 50 mg PO UD 04/13/24 04/13/24 History Patient History Medical History Atrial fibrillation SARAH (obstructive sleep apnea) Hypercholesterolemia Hypertension Hypothyroidism Acute GI bleeding 2nd duodenal ulcer - 2023 Coagulopathy Heart failure with preserved ejection fraction Renal cell carcinoma stage 4 CKD (chronic kidney disease) stage 4, GFR 15-29 ml/min Surgical History S/p nephrectomy right Family History Mother Cancer colon ca; age 76 Father CHF (congestive heart failure) age 78 Social History Smoking Status: Never smoker Do You Dip or Chew Tobacco: No; Hx Alcohol Use: No Hx Substance Use: No Preferred Language: Slovenian Communication Ability: Effective Patient Escort Required: No Beliefs That Will Affect Care: None marital status: Current Living Situation: Spouse Current Living Situation Comment: live in [facility] near [facility] current occupational status: retired 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 reports fatigue and weakness which have increased over the past month. Approximally 40lbs weight loss over the past 12 months. Denies pain in the right foot. Respiratory: Patient reports increased shortness of breath for the past month especially with exertion. Physical Exam Physical Exam: Const: Appears well developed and well nourished. No signs of acute distress present. Obese CV: Extremities: +2 pitting edema bilaterally. Capillary refill time is less than 2 seconds all digits of the bilateral foot. Posterior tibial and dorsalis pedis pulses are none palpable bilateral possibly secondary to +2 edema. Skin: See wound exam below Neuro: Loss of protective sensation to the bilateral foot status with [place] 5.0 7 monofilament. Proprioception remains intact to the level of first MPJ. Psych: Mood/Affect: Mood is normal. Affect is normal. Cognition: Orientation is intact to person, place and time. Focused lower extremity musculoskeletal exam: Leg: No pain with compression of the calf muscle. Ankles: Normal to inspection and palpation. +2 pitting edema bilateral ankle. no tenderness bilaterally. Motor strength is intact. Range of motion pain-free and unlimited. Feet: Normal to inspection and palpation. No obvious instability. Motor strength is intact. Range of motion pain-free and unlimited. Loss of hair growth to the bilateral foot and distal leg. Wound exam: Non-pressure chronic ulcer to the medial aspect of the right heel: Wound extends to subcutaneous tissue layer with partially attached eschar to the wound bed. There is very scant opaque drainage noted to the borders of the wound with some overhanging hyperkeratotic tissue. Wound does not probe or track in any direction. No focal periwound erythema or edema. Small satellite wound anterior to the primary wound which is more superficial. No frankly exposed subcutaneous tissue. No active drainage. No signs of local soft tissue infection. Results & Data Vital Signs (Past 12 Hours) Vital Signs Temp Pulse Pulse Resp BP Pulse Ox O2 Del Method 04/14/24 11:06 36.4 C L 104 H 19 117/83 97 Room Air 04/14/24 09:44 104 H 04/14/24 08:11 36.5 C 100 H 17 132/93 93 Room Air 04/14/24 02:57 36.5 C 96 H 20 111/80 98 BiPAP 04/14/24 02:12 111 H 23 98 04/14/24 01:09 Nasal Cannula, CPAP 04/14/24 01:04 111 H O2 Flow Rate 04/14/24 11:06 04/14/24 09:44 04/14/24 08:11 04/14/24 02:57 04/14/24 02:12 2 04/14/24 01:09 1 04/14/24 01:04 Laboratory Results White blood count 6.57, hemoglobin 9.2, hematocrit 29.2, ESR 15, CRP 3.06 Creatinine 4.56 Troponin 1 high-sensitivity 98.4 PG Care Time/CCT Total # of Minutes Spent Total Time Spent with Patient: Total time spent is greater than 50% in coordination of care (as documented) at patient's floor/unit and/or counseling patient: [place] [address] IN/OBS CONSULT LVL 4,60M Patient Type New History Expanded Problem Focused Exam Expanded Problem Focused Medical Decision Making Low Complexity Diagnoses Non-pressure chronic ulcer of right heel and midfoot with fat layer exposed L97.412
--- NOTE | 2024-04-14 16:18 | Consultation ---
Date of Consultation April 14, 2024 Assessment & Plan (1) End stage chronic kidney disease: Pt with worsening renal fxn, now requiring HD. RUE AVF with pulse present. Will obtain US to eval, but definitely not matured if it is even patent. Planning on permcath insertion on FRIDAY, 04/16. Pt plt will need to be over 40 for this procedure. Pt agreeable. present for discussion. History of Present Illness Reason for Consultation: ESRD Attending Physician: Kanu Gutiérrez History of Present Illness 68 yo m with hx of HTN, DMII, anemia, CHF, autoimmune hepatitis, TAVR, a fib on apixaban, thrombocytopenia, CKD, renal cell ca, admitted with worsening renal disease, seen in consultation today for permcath insertion. Pt states he underwent RUE AVF creation at [facility] in 09/2023, but was advised this had "failed." No further plans made for AVF. Pt admits fatigue/malaise, GUERRERO, and orthopnea, and R heel ulcer. Denies COLUD, fever, chest pain, SOB, abd pain, N/V, rest pain, claudication, other complaints. Allergies Allergy/AdvReac Type Severity Reaction Status Date / Time No Known Allergies Allergy Verified 03/30/24 13:16 Home Medications Medication Instructions Recorded Confirmed Type apixaban 5 mg tablet 5 mg PO BID #60 tabs 11/11/18 04/13/24 History multivitamin 1 tab PO DAILY 11/11/18 04/13/24 History cholecalciferol (vitamin D3) 50 2,000 unit PO DAILY #30 tabs 10/15/22 04/13/24 History mcg (2,000 unit) tablet amoxicillin 500 mg capsule 2,000 mg PO DIRECTED PRN 1 HR 07/07/23 04/13/24 History PRIOR TO DENTAL APPT. betamethasone, augmented 0.05 % 1 applic topical BID PRN Skin 07/07/23 04/13/24 History topical cream Irritation levothyroxine 200 mcg tablet 200 mcg PO QAM 08/21/23 04/13/24 History ferrous sulfate 325 mg (65 mg 325 mg PO DAILY 11/05/23 04/13/24 History iron) tablet (iron) prednisone 10 mg tablet 10 mg PO DAILY 11/05/23 04/13/24 History pantoprazole 40 mg tablet,delayed 40 mg PO QAM 11/17/23 04/13/24 History release bumetanide 1 mg tablet 2 mg (2 x 1 mg) PO .COMPLEX #30 02/23/24 04/13/24 Rx tabs bumetanide 1 mg tablet 1 mg PO QAM #30 tabs 03/30/24 04/13/24 Rx metoprolol tartrate 50 mg tablet 50 mg PO UD 04/13/24 04/13/24 History Patient History Medical History Atrial fibrillation SARAH (obstructive sleep apnea) Hypercholesterolemia Hypertension Hypothyroidism Acute GI bleeding 2nd duodenal ulcer - 2023 Coagulopathy Heart failure with preserved ejection fraction Renal cell carcinoma stage 4 CKD (chronic kidney disease) stage 4, GFR 15-29 ml/min Surgical History S/p nephrectomy right Family History Mother Cancer colon ca; age 76 Father CHF (congestive heart failure) age 78 Social History Smoking Status: Never smoker Do You Dip or Chew Tobacco: No; Hx Alcohol Use: No Hx Substance Use: No Preferred Language: Vietnamese Communication Ability: Effective Migration Specialist Required: No Beliefs That Will Affect Care: None marital status: Current Living Situation: Spouse Current Living Situation Comment: live in [facility] near [facility] current occupational status: retired 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[facility] [employer] How many Children do You have: 2 Feels Safe at Home: Yes Safety Concerns: Feels Safe At This Time Assistive Devices: Raised Toilet Seat Review of Systems Review of Systems: All systems reviewed & are unremarkable except as noted in HPI & below Physical Exam Constitutional: WD/WN, vitals as above + obese and cooperative; not in distress ENMT: Ears: no hearing impairment Neck: trachea midline Respiratory: normal respiratory effort, lungs clear to auscultation Auscultation: + diminished lung sounds Cardiovascular: Rate/Rhythm: + tachycardic Vessels: posterior tibial pulses present, dorsalis pedis pulses present and radial pulses present; + abnormal peripheral pulses Extremities: normal capillary refill, + edema and + AV fi stula (RUE with pulse in proximal portion which tapers distally) Gastrointestinal (Abdomen): unable to examine, pt in chair Musculoskeletal: no cyanosis or clubbing, extremities motor strength 5/5 Skin: no rashes, warm and dry + ulcer (R heel) Neurologic: moves all extremities and awake; no focal motor deficits and not confused Psychiatric: A+Ox3, euthymic affect Results & Data Vital Signs (Past 12 Hours) Vital Signs Temp Pulse Pulse Resp BP Pulse Ox O2 Del Method 04/14/24 15:52 36.2 C L 101 H 19 144/95 H 98 Room Air 04/14/24 11:06 36.4 C L 104 H 19 117/83 97 Room Air 04/14/24 09:44 104 H 04/14/24 08:11 36.5 C 100 H 17 132/93 93 Room Air 04/14/24 08:00 Room Air
--- NOTE | 2024-04-14 16:34 | Hospitalist Progress Note ---
Date of Service April 14, 2024 Assessment & Plan (1) Acute hypoxic respiratory failure: Plan: This is a 68 year old gentleman with past medical history of CKD, RCC, CHF, autoimmune hepatitis who presented to the ED on 04/13 with a chief complaint of weakness, fatigue, dyspnea on exertion x 1 month. (Possible, Suspected, Likely) Acute on chronic diastolic CHF Chest CT 04/13: small-mod volume right and small volume left pleural effusions w/ dependent atelectasis. mild-mod diffuse interstitial opacities favored to represent fluid overload/edema. CTAP 04/13: multiple left renal lesions measuring up to 3cm. Echo 04/14: LV systolic function normal. moderate concentric LVH. LA moderately dilated. Mild mitral regurg. moderate mitral annular calcification. s/p 0.5mg IV Bumex in ED w/ worsening creatinine. BMP 04/14: creatinine 4.56, BUN 115, Na 129 CBC 04/14: hgb 9.2, WBC w/o leukocytosis. Thrombocytopenia 59 Nephrology consulted and following: Lasix 40mg IV BID. Patient to have catheter port placed within next 48h by vascular surgery. IV iron w/ HD sessions when started. Vascular surgery consulted: plan to insert permcath 04/16. AM CBC, BMP (2) MARILEE (acute kidney injury): Plan: patient's baseline Creatinine in fall 2023 was 3 to 3.5. Hyponatremia he has a solitary left kidney. Creatine 4.56, Na 129 nephrology following, plan to initiate HD after permcath insertion. remainder of plan as above. (3) Autoimmune hepatitis treated with steroids: Plan: patient had autoimmune hepatitis from his immunotherapy for his renal cell cancer in 2023. previous on 10mg prednisone PO daily but recently switched to 20mg PO daily outpatient.- hold while inpatient. Stress dose steroids inpatient - s/p 100mg hydrocortisone in ED hydrocortisone 50mg q8h scheduled. (4) Microcytic anemia: Plan: Hb 9.5 on admission. Currently 9.2 Iron studies revealing iron deficiency anemia 04/14 plan to have IV iron w/ HD sessions heme + stool in ED but no signs of overt GI bleeding. switched protonix drip to BID daily Continue to monitor w/ AM CBC (5) Thrombocytopenia: Plan: New onset. Platelets were normal earlier this fall; now 57 Peripheral smear by pathology today without signs of TTP, etc. Hold Eliquis. No need for platelet infusion at this time. heme/onc consult pending (6) Non-pressure chronic ulcer of right heel and midfoot with fat layer exposed: Plan: Wound nurse evaluated patient 04/14 and recommended formal podiatry vs surgery consult. podiatry consulted - recommending betadine to both wounds once daily. if eschar autodebridement or require removal transition to Santyl for primary wound. okay to bear weight as tolerated in normal shoe gear no indication for further diagnostic imaging or for surgical intervention. (7) Metastatic renal cell carcinoma: Plan: follows with Dr Grijalva[facility] on Opdivo - last treatment 03/16/24 heme/onc consult pending. (8) Chronic kidney disease, stage IV (severe): Plan: baseline Cr 3 to 3.5 now with concomitant MARILEE - see above discussion formal nephrology consult placed (9) Chronic diastolic CHF (congestive heart failure): Plan: see plan #1 Plan Chronic conditions: hypothyroidism: synthrodid A fib: metoprolol, eliquis on hold in setting of anemia and thrombocytopenia SARAH: CPAP HTN: metoprolol pt's updated at bedside full code DVT prophylaxis on hold in setting of acute thrombocytopenia. resume outpatient Eliquis when able. Admission and Anticipated Discharge Date Admission Date: April 13, 2024 Subjective Patient seen and examined this morning. at bedside. patient reports improvement in his symptoms today. He denied SOB. Reports he felt less weak as well. denied CP. Physical Exam Constitutional: WD/WN, vitals as above Eyes: PERRL, conjunctivae normal, anicteric sclerae Respiratory: normal respiratory effort, lungs clear to auscultation Cardiovascular: RRR, no murmur, no edema Psychiatric: A+Ox3, euthymic affect Results & Data Results & Data Vital Signs (Past 12 Hours) Vital Signs Temp Pulse Pulse Resp BP Pulse Ox O2 Del Method 04/14/24 15:52 36.2 C L 101 H 19 144/95 H 98 Room Air 04/14/24 11:06 36.4 C L 104 H 19 117/83 97 Room Air 04/14/24 09:44 104 H 04/14/24 08:11 36.5 C 100 H 17 132/93 93 Room Air 04/14/24 08:00 Room Air PG Care Time/CCT Total # of Minutes Spent Total Time Spent with Patient: Total time spent is greater than 50% in coordination of care (as documented) at patient's floor/unit and/or counseling patient: Coding Level of Care Code 88109 SUB INP/OBS CARE 3/50MIN Diagnoses Acute hypoxic respiratory failure J96.01 MARILEE (acute kidney injury) N17.9 Autoimmune hepatitis treated with steroids K75.4 Microcytic anemia D50.9 Thrombocytopenia D69.6 Non-pressure chronic ulcer of right heel and midfoot with fat layer exposed L97.412 Metastatic renal cell carcinoma C64.9 Chronic kidney disease, stage IV (severe) N18.4 Chronic diastolic CHF (congestive heart failure) I50.32
[2024-04-14 16:56] LABS: Hep B Surface Ag with confirm Negative (Negative)
[2024-04-14 17:05] LABS: Folate (Folic Acid),Ser orPlas > 22.30 ng/ml (>5.38)
[2024-04-14 17:05] LABS: Hepatitis B Surface Ab Quant 8.61 mIU/mL (>or=10mIU/mL Immune); Hepatitis B Surface Antibody Non-Immune
[2024-04-14 17:06] LABS: Vitamin B12 605 pg/ml (180-914)
[2024-04-14] MEDS ORDERED: PANTOprazole 40 MG in DEXTROSE 5% 100 ML IV SCH (19:00)
[2024-04-14] MEDS ORDERED: PANTOprazole 40 MG in DEXTROSE 5% MINI-B 100 ML IV SCH (19:00)
--- NOTE | 2024-04-14 19:02 | Ultrasound Report ---
US AV fistula History: AV fistula evaluation Comparison: None Technique: Grayscale, color Doppler and spectral Doppler ultrasound of the right upper extremity fistula. Findings: There is an area of focally elevated velocity involving the fistula in the proximal upper arm of up to 318 cm/sec. This appears to coincide with an area of wall thickening and luminal narrowing. The waveforms of the right brachial artery appears somewhat high resistance, and are triphasic. There are low velocities detected in the fistula at the proximal upper extremity measuring 6 cm/sec, in the mid upper extremity fistula measuring 14 cm/sec. Impression: There is an area of focally elevated velocity, and luminal narrowing related to wall thickening of the fistula in the proximal upper arm. Electronically signed by Lc Ledbetter 04-14-2024 7:01 PM
[2024-04-14] MEDS: PANTOprazole 40 MG/10 ML SYR IV SCH (20:53)
[2024-04-15 07:20] LABS: Potassium 5.9 mmol/L (3.5-5.1)
[2024-04-15 07:23] LABS: Hematocrit (blood only) 31.8 % (42.0-52.0); Hemoglobin 10.1 g/dl (14.0-18.0); Mean Corpuscular Hemoglobin 25.1 pg (25.0-34.0); Mean Corpuscular Hgb Conc 31.8 g/dL (32.0-36.0); Mean Corpuscular Volume 78.9 fL (80.0-100.0); Nucleated RBC # (auto) 0.05 K/uL (0.00-0.12); Nucleated RBC % (auto) 0.5 %; Platelet Count 66 K/uL (130-400); RDW Coefficient of Variation 20.4 % (11.5-14.5); RDW Standard Deviation 56.1 fL (36.4-46.3); Red Blood Count 4.03 M/uL (4.70-6.10); White Blood Count 10.79 K/ul (4.8-10.8)
[2024-04-15 07:25] LABS: BUN Creatinine Ratio 27.3 (10-20)
--- NOTE | 2024-04-15 08:43 | Nephrology Progress Note ---
Date of Service April 15, 2024 Assessment & Plan (1) End stage chronic kidney disease: Plan: * ESKD due to solitary kidney, hypertensive nephrosclerosis/obesity * Patient presents w/ CHF in the setting of kidney failure and progressive azotemia * IJ TCC to be placed 04/16/24. Will plan 1st run HD tomorrow * Continue loop diuretic therapy to promote diuresis * Monitor BMP, UO * Consult case management to set up outpatient HD at [facility] (2) Hyperkalemia: Plan: * Low potassium restriction added to diet order today * Will increase furosemide to 80 mg IV BID * Start Lokelma 10 g po TID x 3 doses * Recheck BMP this afternoon (3) Congestive heart failure (CHF): Plan: * Symptomatically improved since admission * Continue loop diuretic therapy (4) Anemia: Plan: * Will provide IV iron, SCOTT w/ HD when started (5) Metastatic renal cell carcinoma: Plan: * On nivolumab therapy (6) Atrial fibrillation with rapid ventricular response: (7) S/P TAVR (transcatheter aortic valve replacement): Admission and Anticipated Discharge Date Admission Date: April 13, 2024 Subjective Mr. Guadalupe was evaluated in his hospital room this morning. He reports brisk UO in response to IV diuretic therapy. His breathing is subjectively improved. Review of Systems Constitutional: no fever Eyes: no problem reported Ear, Nose, Mouth, Throat: no problem reported Respiratory: + dyspnea on exertion Cardiovascular: no chest pain Gastrointestinal: no abdominal pain, no nausea, no vomiting and no diarrhea/loose stools Genitourinary: no dysuria or no urinary hesitancy Integumentary: no rash Physical Exam Constitutional: not in distress Eyes: PERRL, conjunctivae normal, anicteric sclerae ENMT: external ear and nose normal, oropharynx normal Neck: trachea midline, no thyromegaly Respiratory: no respiratory distress Auscultation: + diminished lung sounds (L base) Cardiovascular: Rate/Rhythm: + irregularly irregular (no rub) Extremities: + edema (tense bilateral LE edema) and + AV fistula (R BC AVF - thrombosed) Gastrointestinal (Abdomen): normal bowel sounds, soft, nontender, no hepatosplenomegaly Neurologic: awake; not confused Results & Data Vital Signs (Past 12 Hours) Vital Signs Temp Pulse Pulse Resp BP Pulse Ox O2 Del Method 04/15/24 08:00 131 H 04/15/24 07:43 36.5 C 105 H 20 117/84 98 Room Air 04/15/24 03:26 36.5 C 112 H 20 120/89 97 BiPAP 04/14/24 23:47 Room Air, CPAP 04/14/24 23:44 111 H 04/14/24 22:28 36.5 C 110 H 20 119/80 97 Room Air Laboratory Results Laboratory Results - last 24 hr 04/14/24 04/14/24 04/14/24 06:02 11:57 15:40 WBC RBC Hgb Hct MCV MCH MCHC RDW Std Deviation RDW Coeff of Nick Plt Count Absolute Nucleated RBC Nucleated RBC % (auto) Sodium Potassium Chloride Carbon Dioxide Anion Gap BUN Creatinine Est Cr Clr Drug Dosing eGFR BUN/Creatinine Ratio Glucose POC Glucose 179 H Calcium Iron 20 L TIBC 340 Transferrin 243 Transferrin % Sat 6 L Ferritin 362.1 Total Bilirubin 2.2 H Direct Bilirubin 1.0 H AST 39 ALT 36 Alkaline Phosphatase 140 H Total Protein 5.0 L Albumin 2.7 L Vitamin B12 Folate Hep Bs Antigen Negative Hep Bs Antibody Non-Immune Hep Bs Antibody, Quant 8.61 Hep B Core IgM Ab Pending 04/14/24 04/14/24 04/14/24 15:42 16:36 20:21 WBC RBC Hgb Hct MCV MCH MCHC RDW Std Deviation RDW Coeff of Nick Plt Count Absolute Nucleated RBC Nucleated RBC % (auto) Sodium Potassium Chloride Carbon Dioxide Anion Gap BUN Creatinine Est Cr Clr Drug Dosing eGFR BUN/Creatinine Ratio Glucose POC Glucose 187 H 191 H Calcium Iron TIBC Transferrin Transferrin % Sat Ferritin Total Bilirubin Direct Bilirubin AST ALT Alkaline Phosphatase Total Protein Albumin Vitamin B12 605 Folate > 22.30 Hep Bs Antigen Hep Bs Antibody Hep Bs Antibody, Quant Hep B Core IgM Ab 04/15/24 04/15/24 07:48 Unknown WBC 10.79 RBC 4.03 L Hgb 10.1 L Hct 31.8 L MCV 78.9 L MCH 25.1 MCHC 31.8 L RDW Std Deviation 56.1 H RDW Coeff of Nick 20.4 H Plt Count 66 L Absolute Nucleated RBC 0.05 Nucleated RBC % (auto) 0.5 Sodium 131 L Potassium 5.9 H D Chloride 104 Carbon Dioxide 13 L Anion Gap 14 H BUN 127 H Creatinine 4.65 H* Est Cr Clr Drug Dosing 23.0 eGFR 12.80 BUN/Creatinine Ratio 27.3 H Glucose 138 H POC Glucose 142 H Calcium 9.0 Iron TIBC Transferrin Transferrin % Sat Ferritin Total Bilirubin Direct Bilirubin AST ALT Alkaline Phosphatase Total Protein Albumin Vitamin B12 Folate Hep Bs Antigen Hep Bs Antibody Hep Bs Antibody, Quant Hep B Core IgM Ab PG Care Time/CCT Total # of Minutes Spent Total Time Spent with Patient: Total time spent is greater than 50% in coordination of care (as documented) at patient's floor/unit and/or counseling patient: Coding Level of Care Code 83120 SUB INP/OBS CARE 3/50MIN Diagnoses End stage chronic kidney disease N18.6 Hyperkalemia E87.5 Congestive heart failure (CHF) I50.9 Anemia D64.9 Metastatic renal cell carcinoma C64.9 Atrial fibrillation with rapid ventricular response I48.91 S/P TAVR (transcatheter aortic valve replacement) Z95.2
[2024-04-15] MEDS: NEPHROCAPS PO SCH (08:47)
[2024-04-15] MEDS: FUROSEMIDE 40 MG/4 ML VIAL IV SCH (09:51)
[2024-04-15] MEDS: SODIUM ZIRCONIUM CYCLOSILICATE 10 GM PACKET PO SCH (09:54)
[2024-04-15] MEDS: METOPROLOL TARTRATE 1 MG/ML VIAL IV STA (10:00)
[2024-04-15] MEDS: methylPREDNISolone 4 MG TAB PO SCH (10:00)
--- NOTE | 2024-04-15 13:02 | Cardiology Consultation ---
Date of Consultation April 15, 2024 Assessment & Plan (1) Atrial fibrillation with rapid ventricular response: (2) S/P TAVR (transcatheter aortic valve replacement): (3) Congestive heart failure (CHF): (4) Mitral regurgitation: Plan 1. Atrial fibrillation: Permanent. The patient did undergo cardioversion on 2 occasions in the remote past. However, he had a fairly rapid return to atrial fibrillation. Not overtly symptomatic. Rate control has been questionable over time. Perhaps suboptimal. His metoprolol has been increased in the outpatient setting to 150 mg daily. I think would be reasonable to try that dose here in the hospital. It is very likely that his overall rate control improve as his hemodynamics improved. Currently volume overloaded. Scheduled for dialysis. Will see if this improves heart rates. With respect to anticoagulation, it seems he had a gastrointestinal hemorrhage previously but started apixaban again afterwards. Anticoagulation currently being held due to his pancytopenia. Will need to consider restarting his apixaban when the opportunity arises. No evidence of active bleeding. 2. Aortic stenosis: Status post TAVR. Normally functioning valve on his recent echocardiogram. Poorly visualized, but no evidence of stenosis or significant regurgitation. Curiously, no obvious murmur on examination. 3. Mitral regurgitation: Mild. This can be followed over time. 4. Hypervolemia: He has a history of heart failure with preserved ejection fraction. He takes a daily diuretic at home. While he has lost weight, this may be related to his malignancy. He does seem to be hypervolemic. Lung examination relatively benign. Minimal effect from diuretics. Scheduled for dialysis which should improve the situation. History of Present Illness Reason for Consultation: Atrial fibrillation Requesting Physician: Marla Attending Physician: Kanu Gutiérrez History of Present Illness The patient is a 68-year-old gentleman with a history of permanent atrial fibrillation, severe aortic stenosis status post TAVR, history of duodenal ulcer and hemorrhage, sleep apnea, metastatic renal cell cancer and chronic renal insufficiency who presented for symptoms of progressive fatigue. Patient is currently undergoing immunotherapy for his malignancy. In the past he has a history of hepatitis associated with the chemotherapy and there are some concern that his current symptoms are also related. He has had some progressive decline in his renal function and is now being prepared for dialysis. He states that he has had significant fatigue and exercise intolerance for some time. He has an element of mild dyspnea, but this does not appear to be limiting. He did not endorse symptoms of chest discomfort, dizziness or sense of palpitation. He does have chronic lower extremity edema which waxes and wanes in severity. He did not report any increasing abdominal girth or weight gain. In fact, he has lost approximately 40 pounds over the past few months. Yesterday he stated that he felt much better. Overall energy had improved. Today not quite as good, but better than the time of admission. He has not done much activity or been very ambulatory here in the hospital. Allergies Allergy/AdvReac Type Severity Reaction Status Date / Time No Known Allergies Allergy Verified 03/30/24 13:16 Home Medications Medication Instructions Recorded Confirmed Type apixaban 5 mg tablet 5 mg PO BID #60 tabs 11/11/18 04/13/24 History multivitamin 1 tab PO DAILY 11/11/18 04/13/24 History cholecalciferol (vitamin D3) 50 2,000 unit PO DAILY #30 tabs 10/15/22 04/13/24 History mcg (2,000 unit) tablet amoxicillin 500 mg capsule 2,000 mg PO DIRECTED PRN 1 HR 07/07/23 04/13/24 History PRIOR TO DENTAL APPT. betamethasone, augmented 0.05 % 1 applic topical BID PRN Skin 07/07/23 04/13/24 History topical cream Irritation levothyroxine 200 mcg tablet 200 mcg PO QAM 08/21/23 04/13/24 History ferrous sulfate 325 mg (65 mg 325 mg PO DAILY 11/05/23 04/13/24 History iron) tablet (iron) prednisone 10 mg tablet 10 mg PO DAILY 11/05/23 04/13/24 History pantoprazole 40 mg tablet,delayed 40 mg PO QAM 11/17/23 04/13/24 History release bumetanide 1 mg tablet 2 mg (2 x 1 mg) PO .COMPLEX #30 02/23/24 04/13/24 Rx tabs bumetanide 1 mg tablet 1 mg PO QAM #30 tabs 03/30/24 04/13/24 Rx metoprolol tartrate 50 mg tablet 50 mg PO UD 04/13/24 04/13/24 History Patient History Medical History Atrial fibrillation SARAH (obstructive sleep apnea) Hypercholesterolemia Hypertension Hypothyroidism Acute GI bleeding 2nd duodenal ulcer - 2023 Coagulopathy Heart failure with preserved ejection fraction Renal cell carcinoma stage 4 CKD (chronic kidney disease) stage 4, GFR 15-29 ml/min Surgical History S/p nephrectomy right Family History Mother Cancer colon ca; age 76 Father CHF (congestive heart failure) age 78 Social History Smoking Status: Never smoker Do You Dip or Chew Tobacco: No; Hx Alcohol Use: No Hx Substance Use: No Preferred Language: Honduran Communication Ability: Effective Billiard Table Repairer Required: No Beliefs That Will Affect Care: None marital status: Current Living Situation: Spouse Current Living Situation Comment: live in [facility] near 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 Some coughing at the time of admission. Difficulty taking deep breaths. Physical Exam Physical Exam: The patient is alert and oriented. Mood and affect appeared normal. He answered all questions appropriately. Obese HEENT: Pupils are equal and reactive to light and accommodation. Extraocular movements are intact. The sclerae are anicteric. Neuro: Cranial nerves intact Lungs: Clear to auscultation bilaterally. He has good air movement without use of accessory muscles. No rales wheezes or rhonchi. Cardiac: Heart demonstrates an irregular rhythm and rapid rate. Normal S1 and S2. No murmurs on examination. Pulses: The patient has palpable radial pulses bilaterally that are equal in intensity Extremities: There was no evidence of hypoperfusion. There is no cyanosis or clubbing. Moderate lower extremity edema bilaterally. AV fistula in the right upper arm with palpable pulse but no thrill. Skin: I did not appreciate any rashes on examination today. Results & Data Vital Signs (Past 12 Hours) Vital Signs Temp Pulse Pulse Resp BP BP Pulse Ox 04/15/24 11:30 108 H 132/87 04/15/24 11:27 36.6 C 108 H 18 132/87 95 04/15/24 10:00 123 H 127/80 04/15/24 08:00 131 H 04/15/24 07:43 36.5 C 105 H 20 117/84 98 04/15/24 03:26 36.5 C 112 H 20 120/89 97 O2 Del Method 04/15/24 11:30 04/15/24 11:27 Room Air 04/15/24 10:00 04/15/24 08:00 04/15/24 07:43 Room Air 04/15/24 03:26 BiPAP Laboratory Results Abnormal Lab Results 04/13/24 04/14/24 04/14/24 12:23 15:40 15:42 WBC RBC Hgb Hct MCV MCH MCHC RDW Std Deviation RDW Coeff of Nick Plt Count Absolute Nucleated RBC Nucleated RBC % (auto) Haptoglobin 98 Sodium Potassium Chloride Carbon Dioxide Anion Gap BUN Creatinine Est Cr Clr Drug Dosing eGFR BUN/Creatinine Ratio Glucose POC Glucose Calcium Vitamin B12 605 Folate > 22.30 Hep Bs Antigen Negative Hep Bs Antibody Non-Immune Hep Bs Antibody, Quant 8.61 04/14/24 04/14/24 04/15/24 16:36 20:21 07:48 WBC RBC Hgb Hct MCV MCH MCHC RDW Std Deviation RDW Coeff of Nick Plt Count Absolute Nucleated RBC Nucleated RBC % (auto) Haptoglobin Sodium Potassium Chloride Carbon Dioxide Anion Gap BUN Creatinine Est Cr Clr Drug Dosing eGFR BUN/Creatinine Ratio Glucose POC Glucose 187 H 191 H 142 H Calcium Vitamin B12 Folate Hep Bs Antigen Hep Bs Antibody Hep Bs Antibody, Quant 04/15/24 04/15/24 12:28 Unknown WBC 10.79 RBC 4.03 L Hgb 10.1 L Hct 31.8 L MCV 78.9 L MCH 25.1 MCHC 31.8 L RDW Std Deviation 56.1 H RDW Coeff of Nick 20.4 H Plt Count 66 L Absolute Nucleated RBC 0.05 Nucleated RBC % (auto) 0.5 Haptoglobin Sodium 131 L Potassium 5.9 H D Chloride 104 Carbon Dioxide 13 L Anion Gap 14 H BUN 127 H Creatinine 4.65 H* Est Cr Clr Drug Dosing 23.0 eGFR 12.80 BUN/Creatinine Ratio 27.3 H Glucose 138 H POC Glucose 161 H Calcium 9.0 Vitamin B12 Folate Hep Bs Antigen Hep Bs Antibody Hep Bs Antibody, Quant Diagnostic Findings Echocardiogram 04/14/2024: Normal LV systolic function with ejection fraction of 60 to 65%. Moderate LVH. Moderate left atrial dilation. Mild mitral regurgitation. Moderate mitral annular calcification. ECG Additional Comments: EKG obtained at the time admission revealed atrial fibrillation and a rapid ventricular rate. Ventricular ectopy versus aberrant conduction noted. PG Care Time/CCT Total # of Minutes Spent Total Time Spent with Patient: Total time spent is greater than 50% in coordination of care (as documented) at patient's floor/unit and/or counseling patient: Coding Level of Care Code 26622 INT INP/OBS CARE 3/75MIN Diagnoses Atrial fibrillation with rapid ventricular response I48.91 S/P TAVR (transcatheter aortic valve replacement) Z95.2 Congestive heart failure (CHF) I50.9 Mitral regurgitation I34.0
[2024-04-15 15:31] LABS: Potassium 4.8 mmol/L (3.5-5.1)
[2024-04-15 15:40] LABS: BUN Creatinine Ratio 27.2 (10-20); Creatinine Clr Calc Pharmacy 22.9 ml/min
--- NOTE | 2024-04-15 16:20 | Hospitalist Progress Note ---
Date of Service April 15, 2024 Assessment & Plan (1) Acute hypoxic respiratory failure: Plan: This is a 68 year old gentleman with past medical history of CKD, RCC, CHF, autoimmune hepatitis who presented to the ED on 04/13 with a chief complaint of weakness, fatigue, dyspnea on exertion x 1 month. (Possible, Suspected, Likely) Acute on chronic diastolic CHF Chest CT 04/13: small-mod volume right and small volume left pleural effusions w/ dependent atelectasis. mild-mod diffuse interstitial opacities favored to represent fluid overload/edema. CTAP 04/13: multiple left renal lesions measuring up to 3cm. Echo 04/14: LV systolic function normal. moderate concentric LVH. LA moderately dilated. Mild mitral regurg. moderate mitral annular calcification. BMP 04/15 AM revealed hyperkalemia of 5.9 and rising creatinine of 4.65 s/p Lokelma 10g PO TID x 3 doses, Lasix increased to 80mg IV BID - repeat labs in PM of 04/15 revealed K of 4.8 and Creatinine of 4.67 CBC 04/15: hgb 10.1, WBC w/o leukocytosis. Thrombocytopenia 66 Nephrology consulted and following: Patient to have catheter port placed within next 04/16 by vascular surgery. IV iron w/ HD sessions when started. Vascular surgery consulted: plan to insert permcath 04/16. - NPO at midnight AM CBC, BMP (2) MARILEE (acute kidney injury): Plan: patient's baseline Creatinine in fall 2023 was 3 to 3.5. Hyponatremia he has a solitary left kidney. Creatine 4.67, Na 130 nephrology following, plan to initiate HD after permcath insertion. remainder of plan as above. (3) Autoimmune hepatitis treated with steroids: Plan: patient had autoimmune hepatitis from his immunotherapy for his renal cell cancer in 2023. previous on 10mg prednisone PO daily but recently switched to 20mg PO daily outpatient.- hold while inpatient. Stress dose steroids inpatient - heme/onc recommended switching to methylpre dnisolone. (4) Microcytic anemia: Plan: Hb 9.5 on admission. Currently 10.1 Iron studies revealing iron deficiency anemia 04/14 plan to have IV iron w/ HD sessions heme + stool in ED but no signs of overt GI bleeding. PPI BID Continue to monitor w/ AM CBC (5) Thrombocytopenia: Plan: New onset. Platelets were normal earlier this fall; now 59 Peripheral smear by pathology today without signs of TTP, etc. Hold Eliquis. No need for platelet infusion at this time. heme/onc consulted - obtain Lauren test, reticulocyte count, haptoglobin to r/o hemolysis. B12 and folate levels to r/o nutritional component. (6) Non-pressure chronic ulcer of right heel and midfoot with fat layer exposed: Plan: Wound nurse evaluated patient 04/14 and recommended formal podiatry vs surgery consult. podiatry consulted - recommending betadine to both wounds once daily. if eschar auto debridement or require removal transition to Santyl for primary wound. okay to bear weight as tolerated in normal shoe gear no indication for further diagnostic imaging or for surgical intervention. (7) Metastatic renal cell carcinoma: Plan: follows with Dr Grijalva[facility] on Opdivo - last treatment 03/16/24 heme/onc consult recs as above (8) Chronic kidney disease, stage IV (severe): Plan: baseline Cr 3 to 3.5 now with concomitant MARILEE - see above discussion (9) Chronic diastolic CHF (congestive heart failure): Plan: see plan #1 Plan Chronic conditions: hypothyroidism: synthrodid A fib: metoprolol, eliquis on hold in setting of anemia and thrombocytopenia SARAH: CPAP HTN: metoprolol pt's updated at bedside 04/15 Discussed w/ nephrology via tiger text 04/15. full code DVT prophylaxis on hold in setting of acute thrombocytopenia. resume outpatient Eliquis when able. - likely after perm cath insertion 04/16 Admission and Anticipated Discharge Date Admission Date: April 13, 2024 Subjective Patient seen and examined this morning. Patient reports more fatigue today compared to yesterday. He states he has been urinating frequently since getting his lasix. denies any CP or SOB. Physical Exam Constitutional: WD/WN, vitals as above Eyes: PERRL, conjunctivae normal, anicteric sclerae Respiratory: normal respiratory effort, lungs clear to auscultation Cardiovascular: irregularly irregular. no edema Psychiatric: A+Ox3, euthymic affect Results & Data Results & Data Vital Signs (Past 12 Hours) Vital Signs Temp Pulse Pulse Resp BP BP Pulse Ox 04/15/24 11:30 108 H 132/87 04/15/24 11:27 36.6 C 108 H 18 132/87 95 01/23/25 10:00 123 H 127/80 04/15/24 09:50 04/15/24 08:00 131 H 04/15/24 07:43 36.5 C 105 H 20 117/84 98 O2 Del Method 04/15/24 11:30 04/15/24 11:27 Room Air 04/15/24 10:00 04/15/24 09:50 Room Air 04/15/24 08:00 04/15/24 07:43 Room Air PG Care Time/CCT Total # of Minutes Spent Total Time Spent with Patient: Total time spent is greater than 50% in coordination of care (as documented) at patient's floor/unit and/or counseling patient: Coding Level of Care Code 08724 SUB INP/OBS CARE 3/50MIN Diagnoses Acute hypoxic respiratory failure J96.01 MARILEE (acute kidney injury) N17.9 Autoimmune hepatitis treated with steroids K75.4 Microcytic anemia D50.9 Thrombocytopenia D69.6 Non-pressure chronic ulcer of right heel and midfoot with fat layer exposed L97.412 Metastatic renal cell carcinoma C64.9 Chronic kidney disease, stage IV (severe) N18.4 Chronic diastolic CHF (congestive heart failure) I50.32
[2024-04-15] MEDS: METOPROLOL SUCC 50MG EXT REL TAB PO SCH (21:15)
[2024-04-16] MEDS: METOPROLOL TARTRATE 1 MG/ML VIAL IV STA (08:30)
--- NOTE | 2024-04-16 08:48 | Nephrology Progress Note ---
Date of Service April 16, 2024 Assessment & Plan (1) End stage chronic kidney disease: Plan: * ESKD due to solitary kidney, hypertensive nephrosclerosis/obesity * Patient presented w/ CHF in the setting of kidney failure and progressive azotemia * IJ TCC to be placed this afternoon followed by first chronic HD. * HD orders have been placed in the EMR and on-call HD RN has been notified. * Monitor BMP, UO * Case management has been consulted to set up outpatient HD at [facility] (2) Hyperkalemia: Plan: * Potassium has corrected * Continue low potassium, HD diet * Stop IV diuretic as patient is transitioning to HD. * Stop Lokelma (3) Congestive heart failure (CHF): Plan: * Symptomatically improved since admission * Will transition to HD (4) Anemia: Plan: * Will provide IV iron, SCOTT w/ HD when started (5) Metastatic renal cell carcinoma: Plan: * On nivolumab therapy (6) Atrial fibrillation with rapid ventricular response: (7) S/P TAVR (transcatheter aortic valve replacement): Admission and Anticipated Discharge Date Admission Date: April 13, 2024 Subjective Mr. Guadalupe was evaluated in his hospital room this morning. He continues to experienced dyspnea on exertion but does report brisk urine output in response to IV diuretic therapy. He is scheduled for IJ TCC later this morning followed by first from HD. Review of Systems Constitutional: no fever Eyes: no problem reported Ear, Nose, Mouth, Throat: no problem reported Respiratory: + dyspnea on exertion Cardiovascular: no chest pain Gastrointestinal: no abdominal pain, no nausea, no vomiting and no diarrhea/loose stools Genitourinary: no dysuria or no urinary hesitancy Integumentary: no rash Physical Exam Constitutional: not in distress Eyes: PERRL, conjunctivae normal, anicteric sclerae ENMT: external ear and nose normal, oropharynx normal Neck: trachea midline, no thyromegaly Respiratory: no respiratory distress Auscultation: + diminished lung sounds (L base) Cardiovascular: Rate/Rhythm: + irregularly irregular (no rub) Extremities: + edema (tense bilateral LE edema) and + AV fistula (R BC AVF - thrombosed) Gastrointestinal (Abdomen): normal bowel sounds, soft, nontender, no hepatosplenomegaly Neurologic: awake; not confused Results & Data Vital Signs (Past 12 Hours) Vital Signs Temp Pulse Pulse Resp BP Pulse Ox O2 Del Method 04/16/24 08:20 145 H 121/79 04/16/24 07:30 37 C 148 H 22 139/85 94 Room Air 04/16/24 07:00 178 H 04/16/24 03:27 36.4 C L 118 H 17 140/61 97 Room Air 04/16/24 02:26 Room Air, CPAP 04/16/24 02:25 114 H 04/15/24 23:08 36.4 C L 119 H 19 145/97 H 97 Room Air Laboratory Results Laboratory Results - last 24 hr 04/13/24 04/15/24 04/15/24 12:23 12:28 14:54 Haptoglobin 98 Sodium 130 L Potassium 4.8 Chloride 102 Carbon Dioxide 14 L Anion Gap 14 H BUN 127 H Creatinine 4.67 H* Est Cr Clr Drug Dosing 22.9 eGFR 12.74 BUN/Creatinine Ratio 27.2 H Glucose 155 H POC Glucose 161 H Calcium 9.0 04/15/24 04/15/24 04/16/24 17:17 20:04 07:37 Haptoglobin Sodium Potassium Chloride Carbon Dioxide Anion Gap BUN Creatinine Est Cr Clr Drug Dosing eGFR BUN/Creatinine Ratio Glucose POC Glucose 147 H 159 H 117 H Calcium PG Care Time/CCT Total # of Minutes Spent Total Time Spent with Patient: Total time spent is greater than 50% in coordination of care (as documented) at patient's floor/unit and/or counseling patient: Coding Level of Care Code 30682 SUB INP/OBS CARE 3/50MIN Diagnoses End stage chronic kidney disease N18.6 Hyperkalemia E87.5 Congestive heart failure (CHF) I50.9 Anemia D64.9 Metastatic renal cell carcinoma C64.9 Atrial fibrillation with rapid ventricular response I48.91 S/P TAVR (transcatheter aortic valve replacement) Z95.2
[2024-04-16] MEDS: METOPROLOL SUCC 50MG EXT REL TAB PO SCH (08:55)
[2024-04-16 09:51] LABS: Hematocrit (blood only) 32.7 % (42.0-52.0); Hemoglobin 10.5 g/dl (14.0-18.0); Mean Corpuscular Hemoglobin 24.8 pg (25.0-34.0); Mean Corpuscular Hgb Conc 32.1 g/dL (32.0-36.0); Mean Corpuscular Volume 77.3 fL (80.0-100.0); Nucleated RBC # (auto) 0.12 K/uL (0.00-0.12); Nucleated RBC % (auto) 1.2 %; Platelet Count 49 K/uL (130-400); RDW Coefficient of Variation 20.3 % (11.5-14.5); RDW Standard Deviation 53.6 fL (36.4-46.3); Red Blood Count 4.23 M/uL (4.70-6.10); White Blood Count 9.82 K/ul (4.8-10.8)
--- NOTE | 2024-04-16 10:52 | History & Physical Bridge Note ---
Date of Service April 16, 2024 History & Physical Bridge Note Patient for insertion of permcath today. I have discussed the risks options and benefits of the procedure with the patient. The patient understands the risks options and benefits and agrees to the procedure. I have examined the patient, reviewed the History & Physical and in the interval since the performance of the History & Physical I have noted the following changes of clinical significance: no changes noted
--- NOTE | 2024-04-16 10:53 | Pre Anesthesia Assessment ---
Date of Service April 16, 2024 Pre Sedation Assessment Vital Signs Temp Pulse Pulse Resp BP BP Pulse Ox 04/16/24 10:00 37.2 C 125 H 22 120/93 94 04/16/24 08:42 130 H 115/78 04/16/24 08:20 145 H 121/79 04/16/24 07:30 37 C 148 H 22 139/85 94 04/16/24 07:00 178 H 04/16/24 03:27 36.4 C L 118 H 17 140/61 97 04/16/24 02:26 04/16/24 02:25 114 H 04/15/24 23:08 36.4 C L 119 H 19 145/97 H 97 04/15/24 20:19 36.8 C 100 H 17 150/85 H 96 04/15/24 17:39 135 H 04/15/24 17:12 36.4 C L 114 H 18 127/86 99 04/15/24 11:30 108 H 132/87 04/15/24 11:27 36.6 C 108 H 18 132/87 95 O2 Del Method 04/16/24 10:00 Room Air 04/16/24 08:42 04/16/24 08:20 04/16/24 07:30 Room Air 04/16/24 07:00 04/16/24 03:27 Room Air 04/16/24 02:26 Room Air, CPAP 04/16/24 02:25 04/15/24 23:08 Room Air 04/15/24 20:19 Room Air 04/15/24 17:39 04/15/24 17:12 Room Air 04/15/24 11:30 04/15/24 11:27 Room Air Cardiovascular RRR, no murmur, no edema Respiratory normal respiratory effort, lungs clear to auscultation Pre-Sedation Airway Assessment Smoking Status: Never smoker Hx Sleep Apnea: No Short, Thick Neck: Yes Thyromental Distance: < 3.5 Finger Breadths Oral Cavity: + WNL Mallampati Class: III ASA: ASA4 NPO Status Date of Last Intake of Fluids: 04/15/24 Time of Last Intake of Fluids: 23:00 Date of Last Intake of Solid Food: 04/15/24 Time of Last Intake of Solid Foods: 19:30 Procedure Planning Contraindications for Sedation: none Current Medications Reviewed: Yes Notes The planned sedation has been discussed with the patient. Informed Consent was obtained. I have identified the patient, determined the appropriateness of sedation and have assessed the patient immediately prior to the procedure. All medicine(s) and interventions are by my order.
[2024-04-16 10:59] LABS: Calcium 8.8 mg/dl (8.6-10.3); Potassium 4.8 mmol/L (3.5-5.1)
[2024-04-16] MEDS: ceFAZolin 3000MG 3,000 MG/72.5 ML BAG IV SCH (11:01)
--- NOTE | 2024-04-16 11:08 | Cardiology Progress Note ---
Date of Service April 16, 2024 Assessment & Plan (1) Atrial fibrillation with rapid ventricular response: (2) S/P TAVR (transcatheter aortic valve replacement): (3) Congestive heart failure (CHF): (4) Mitral regurgitation: Plan 1. Atrial fibrillation: Permanent. Higher rates currently. There is some debate about overall rate control in the outpatient setting. His medical regimen was intensified to metoprolol succinate 50 mg in the morning 100 mg in the evening. He continues to have high rates and I believe some of this is related to his clinical status. I suspect that as his volume and acid-base status improves we will see some improvement in overall rate control. Options for improved rate control over the next few days would include more beta- blockade with the addition of a low-dose calcium channel anish such as diltiazem 30 mg every 6 hours. 2. Aortic stenosis: Status post TAVR. Normally functioning valve on his recent echocardiogram. Poorly visualized, but no evidence of stenosis or significant regurgitation. Curiously, no obvious murmur on examination. 3. Mitral regurgitation: Mild. This can be followed over time. 4. Hypervolemia: He has a history of heart failure with preserved ejection fraction. He has not affected much of a diuresis overall. Again, I think once his volume status and acid-base status is improved with dialysis we will see improvement in his atrial fibrillation. I will be away from the hospital for the next 2 days. If there are questions regarding his clinical care, please contact the on-call rug dyer. Admission and Anticipated Discharge Date Admission Date: April 13, 2024 Subjective This morning the patient was on his way to the operating room for PermCath placement. He states that his breathing was better since admission. He denied chest pain or sense of palpitation. Minimal ambulation. No dizziness. Review of Systems Review of Systems: Per HPI. Some coughing at the time of admission. Difficulty taking deep breaths. Physical Exam Physical Exam: The patient is alert and oriented. Mood and affect appeared normal. He answered all questions appropriately. Obese HEENT: Pupils are equal and reactive to light and accommodation. Extraocular movements are intact. The sclerae are anicteric. Neuro: Cranial nerves intact Lungs: Clear to auscultation bilaterally. He has good air movement without use of accessory muscles. No rales wheezes or rhonchi. Cardiac: Heart demonstrates an irregular rhythm and fast rate. Normal S1 and S2. No murmurs on examination. Pulses: The patient has palpable radial pulses bilaterally that are equal in intensity Extremities: There was no evidence of hypoperfusion. There is no cyanosis or clubbing. Moderate lower extremity edema bilaterally. AV fistula in the right upper arm with palpable pulse but no thrill. Skin: I did not appreciate any rashes on examination today. Results & Data Vital Signs (Past 12 Hours) Vital Signs Temp Pulse Pulse Resp BP BP Pulse Ox 04/16/24 10:00 37.2 C 125 H 22 120/93 94 04/16/24 08:42 130 H 115/78 04/16/24 08:20 145 H 121/79 04/16/24 07:30 37 C 148 H 22 139/85 94 04/16/24 07:00 178 H 04/16/24 03:27 36.4 C L 118 H 17 140/61 97 04/16/24 02:26 04/16/24 02:25 114 H 04/15/24 23:08 36.4 C L 119 H 19 145/97 H 97 O2 Del Method 04/16/24 10:00 Room Air 04/16/24 08:42 04/16/24 08:20 04/16/24 07:30 Room Air 04/16/24 07:00 04/16/24 03:27 Room Air 04/16/24 02:26 Room Air, CPAP 04/16/24 02:25 04/15/24 23:08 Room Air Laboratory Results Abnormal Lab Results 04/15/24 04/15/24 04/15/24 12:28 14:54 17:17 WBC RBC Hgb Hct MCV MCH MCHC RDW Std Deviation RDW Coeff of Nick Plt Count Absolute Nucleated RBC Nucleated RBC % (auto) Sodium 130 L Potassium 4.8 Chloride 102 Carbon Dioxide 14 L Anion Gap 14 H BUN 127 H Creatinine 4.67 H* Est Cr Clr Drug Dosing 22.9 eGFR 12.74 BUN/Creatinine Ratio 27.2 H Glucose 155 H POC Glucose 161 H 147 H Calcium 9.0 04/15/24 04/16/24 04/16/24 20:04 07:37 09:22 WBC 9.82 RBC 4.23 L Hgb 10.5 L Hct 32.7 L MCV 77.3 L MCH 24.8 L MCHC 32.1 RDW Std Deviation 53.6 H RDW Coeff of Nick 20.3 H Plt Count 49 L Absolute Nucleated RBC 0.12 Nucleated RBC % (auto) 1.2 Sodium 133 L Potassium 4.8 Chloride 104 Carbon Dioxide 13 L Anion Gap 16 H BUN Creatinine Est Cr Clr Drug Dosing eGFR BUN/Creatinine Ratio Glucose POC Glucose 159 H 117 H Calcium 8.8 PG Care Time/CCT Total # of Minutes Spent Total Time Spent with Patient: Total time spent is greater than 50% in coordination of care (as documented) at patient's floor/unit and/or counseling patient: Coding Level of Care Code 47314 SUB INP/OBS CARE 2/35MIN Diagnoses Atrial fibrillation with rapid ventricular response I48.91 S/P TAVR (transcatheter aortic valve replacement) Z95.2 Congestive heart failure (CHF) I50.9 Mitral regurgitation I34.0
[2024-04-16 11:19] LABS: BUN Creatinine Ratio 26.9 (10-20); Creatinine Clr Calc Pharmacy 22.3 ml/min
[2024-04-16] MEDS: fentaNYL citrate PF 100 MCG/2 ML VIAL ONE (11:45)
[2024-04-16] MEDS: MIDAZOLAM HCL 1 MG/ML 2ML VIAL ONE (11:45)
[2024-04-16] MEDS: HEPARIN SOD (PORCINE) 5,000 UNITS/ML VIAL ONE (11:50)
[2024-04-16] MEDS: LIDOCAINE 1% LOCAL 20 ML VIAL ONE (11:52)
--- NOTE | 2024-04-16 12:06 | Operative Report ---
Post Operative Report Pre & Post Diagnosis Operation Date: 04/16/24 09:20 Pre-Op Diagnosis: End Stage Renal Disease Post-Op Diagnosis: End Stage Renal Disease I identified the patient and participated in the time-out.: Yes Procedure Operation Date: 04/16/24 09:20 Actual Procedures p Insertion of Perm Cath,Right Internal Jugular Approach,Ultrasound Localization of Right Internal Jugular Vein, Fluoroscopy for Positioning, Moderate Sedation [id number] you very much for letting us participate in the care of this patient.(Right) - Niko Norton MD Surgeon Niko Norton MD Modeling Teacher none Estimated Blood Loss 5 Findings Consistent with Post-Op Diagnosis Specimens none Anesthesia Type RN Sedation Complications none Disposition Accompanied Patient To Recovery: No Disposition: Recovery Room Indications This is a 68-year-old gentleman who has end-stage renal disease and is now in need of dialysis. PermCath was recommended. I have discussed the risks options and benefits of the procedure with the patient. The patient understands the risks options and benefits and agrees to the procedure. Description of Procedure Patient was taken to the angio suite and placed in the supine position. The right side of the neck and chest wall were prepped and draped in a sterile manner. The patient was identified and a timeout performed. Local anesthesia was then administered to the appropriate areas of the neck and chest wall. Ultrasound was then used to locate the right internal jugular vein. The vein compressed easily, had no filing defects, and was patent. The vein was then punctured under direct ultrasound imaging. A guidewire was then passed centrally under fluoroscopic imaging. A stab wound was then made in the anterior chest wall and a 19 cm permcath was passed from the stab wound on the chest wall to the puncture site on the neck. The puncture site was then dilated till the 14Fr peel away sheath was inserted. The permcath was then inserted through the sheath to a central position in the distal superior vena cava. The peel away sheath was then removed. The catheter was then sutured in place using nylon sutures. The puncture was then closed using a 4-0 Vicryl subcuticular suture. Dermabond was used for a dressing on the puncture site. Both ports aspirated and flushed easily and were then packed with heparin. A sterile dressing was applied to the catheter. The patient left the operation room in satisfactory condition and tolerated the procedure well. All needle and sponge counts were correct at the end of the procedure. I attest to the content of the Intraoperative Record and any orders documented therein. Any exceptions are noted below.
--- NOTE | 2024-04-16 12:08 | Post Anesthesia Assessment ---
Date of Service April 16, 2024 Post Sedation Assessment Vital Signs Temp Pulse Pulse Resp BP BP Pulse Ox 04/16/24 12:07 130 H 14 128/81 99 04/16/24 12:02 132 H 12 121/89 98 04/16/24 12:00 142 H 11 L 121/87 99 04/16/24 11:55 133 H 12 124/89 99 04/16/24 11:50 128 H 9 L 133/96 100 04/16/24 11:45 129 H 11 L 141/92 H 100 04/16/24 11:38 135 H 18 117/92 96 04/16/24 10:00 37.2 C 125 H 22 120/93 94 04/16/24 08:42 130 H 115/78 04/16/24 08:20 145 H 121/79 04/16/24 07:30 37 C 148 H 22 139/85 94 04/16/24 07:00 178 H 04/16/24 03:27 36.4 C L 118 H 17 140/61 97 04/16/24 02:26 04/16/24 02:25 114 H 04/15/24 23:08 36.4 C L 119 H 19 145/97 H 97 04/15/24 20:19 36.8 C 100 H 17 150/85 H 96 04/15/24 17:39 135 H 04/15/24 17:12 36.4 C L 114 H 18 127/86 99 O2 Del Method O2 Flow Rate 04/16/24 12:07 Oxymask 4 04/16/24 12:02 Oxymask 4 04/16/24 12:00 Oxymask 4 04/16/24 11:55 Oxymask 4 04/16/24 11:50 Oxymask 4 04/16/24 11:45 Oxymask 4 04/16/24 11:38 Oxymask 04/16/24 10:00 Room Air 04/16/24 08:42 04/16/24 08:20 04/16/24 07:30 Room Air 04/16/24 07:00 04/16/24 03:27 Room Air 04/16/24 02:26 Room Air, CPAP 04/16/24 02:25 04/15/24 23:08 Room Air 04/15/24 20:19 Room Air 04/15/24 17:39 04/15/24 17:12 Room Air Recovery Score Activity: Moves 4 extremities Respiration: Deep Breath/Cough Circulation: +/-20% PreAnes Value Consciousness: Fully Awake Oxygen Saturation: > 92% On Room Air Post Anesthesia Score: 10 Discharge Sedation Level of Care: Fast Track Phase II Post Sedation Plan On clinical assessment, the patient appears to have tolerated the sedation without complications. Patient is recovering as anticipated. Patient will continue to be monitored by nursing and may be discharged when sedation discharge criteria are met per below protocol. Upon Completions of procedure up to 15 minutes continue every 5 minute vital signs and the P.A.R. score; then discharge to a Phase I or Fast Track to Phase II per the following guidelines: * Discharge Patient to appropriate Phase II area if PAR is 8 or greater or return to pre- procedure baseline. The post - procedure orders will be as directed. * If PAR score is less than 8 or not return to pre-procedure baseline then patient will follow Phase I monitoring till PAR is reached for Phase II. The Phase I may be done in procedure room or may call to secure a Phase I area. * If naloxone or flumazenil are used for reversal, hold in Phase I for continued monitoring from when last reversal dose was given for a minimum of 60 minutes or longer pending the nurse and/or physician discretion of patient condition before discharge to Phase II. Please call the Sedation Physician to re-evaluate and complete post-note for discharge to Phase II area. Do NOT discharge from procedure sedation or Phase 1 until post- sedation evaluation note is complete by procedure /sedation MD Sedation Discharge Instructions to be given to the patient at discharge to home.
[2024-04-16] MEDS: EPOETIN ALFA 10,000 UNITS/ML VIAL IV ONE (15:19)
[2024-04-16] MEDS: METOPROLOL TARTRATE 25 MG TAB PO ONE (16:04)
--- NOTE | 2024-04-16 17:08 | Hospitalist Progress Note ---
Date of Service April 16, 2024 Assessment & Plan (1) Acute hypoxic respiratory failure: Plan: This is a 68 year old gentleman with past medical history of CKD, RCC, CHF, autoimmune hepatitis who presented to the ED on 04/13 with a chief complaint of weakness, fatigue, dyspnea on exertion x 1 month. (Possible, Suspected, Likely) Acute on chronic diastolic CHF + ESRD Chest CT 04/13: small-mod volume right and small volume left pleural effusions w/ dependent atelectasis. mild-mod diffuse interstitial opacities favored to represent fluid overload/edema. CTAP 04/13: multiple left renal lesions measuring up to 3cm. Echo 04/14: LV systolic function normal. moderate concentric LVH. LA moderately dilated. Mild mitral regurg. moderate mitral annular calcification. CBC w/ stable hgb, no leukocytosis, plt 49 BMP w/ hyponatremia improved to 133, K 4.8, Creatinine 4.80 s/p perm cath placement 04/16 by vascular surgery followed by first session of HD plan for dialysis 04/17 and 04/19 Nephrology following - Lasix d/c, IV Iron and SCOTT given w/ HD AM CBC, BMP (2) Chronic kidney disease, stage IV (severe): Plan: baseline Cr 3 to 3.5 now with concomitant MARILEE - see above discussion (3) Atrial fibrillation: Plan: Patient in A fib RVR secondary to volume overload status - will likely improve when volume status improves. s/p IV Lopressor 04/16. cardiology following metoprolol increased to 75mg PO AM and 100mg PO PM. (4) Autoimmune hepatitis treated with steroids: Plan: patient had autoimmune hepatitis from his immunotherapy for his renal cell cancer in 2023. previous on 10mg prednisone PO daily but recently switched to 20mg PO daily outpatient.- hold while inpatient. Stress dose steroids inpatient - heme/onc recommended switching to methylprednisolone. (5) Microcytic anemia: Plan: Hb 9.5 on admission. Currently 10.1 Iron studies revealing iron deficiency anemia 04/14 plan to have IV iron w/ HD sessions heme + stool in ED but no signs of overt GI bleeding. PPI BID Continue to monitor w/ AM CBC (6) Thrombocytopenia: Plan: New onset. Platelets were normal earlier this fall; now 49 Peripheral smear by pathology today without signs of TTP, etc. Hold Eliquis. if plt continues to drop, pt may need transfusion. continue to monitor closely. heme/onc consulted - obtain Lauren test, reticulocyte count, haptoglobin to r/o hemolysis. B12 and folate levels to r/o nutritional component. (7) Non-pressure chronic ulcer of right heel and midfoot with fat layer exposed: Plan: Wound nurse evaluated patient 04/14 and recommended formal podiatry vs surgery consult. podiatry consulted - recommending betadine to both wounds once daily. if eschar auto debridement or require removal transition to Santyl for primary wound. okay to bear weight as tolerated in normal shoe gear no indication for further diagnostic imaging or for surgical intervention. (8) Metastatic renal cell carcinoma: Plan: follows with Dr Grijalva[facility] on Opdivo - last treatment 03/16/24 heme/onc consult recs as above (9) Chronic diastolic CHF (congestive heart failure): Plan: see plan #1 Plan Chronic conditions: hypothyroidism: synthrodid SARAH: CPAP HTN: metoprolol pt's updated at bedside 04/16 full code DVT prophylaxis on hold in setting of acute thrombocytopenia. resume outpatient Eliquis when able. - likely after perm cath insertion 04/16 Admission and Anticipated Discharge Date Admission Date: April 13, 2024 Subjective Patient seen and examined this afternoon following his dialysis session. Patient reports fatigue today but denies any additional complaints. Physical Exam Constitutional: WD/WN, vitals as above Eyes: PERRL, conjunctivae normal, anicteric sclerae Respiratory: normal respiratory effort, lungs clear to auscultation Cardiovascular: tachycardic, irregular. + LE edema moderate b/l Psychiatric: A+Ox3, euthymic affect Results & Data Results & Data Vital Signs (Past 12 Hours) Vital Signs Temp Pulse Pulse Pulse Resp BP BP 04/16/24 16:14 134 H 04/16/24 16:11 127 H 04/16/24 15:40 36.6 C 117 H 100/61 04/16/24 15:30 109 H 86/51 L 04/16/24 15:00 118 H 87/64 L 04/16/24 14:30 125 H 72/56 L 04/16/24 14:00 117 H 95/66 L 04/16/24 13:38 124 H 105/77 04/16/24 13:30 36.6 C 124 H 04/16/24 12:20 36.6 C 119 H 18 112/81 04/16/24 12:07 130 H 14 128/81 04/16/24 12:02 132 H 12 121/89 04/16/24 12:00 142 H 11 L 121/87 04/16/24 11:55 133 H 12 124/89 04/16/24 11:50 128 H 9 L 133/96 04/16/24 11:45 129 H 11 L 141/92 H 04/16/24 11:38 135 H 18 117/92 04/16/24 10:00 37.2 C 125 H 22 120/93 04/16/24 08:45 04/16/24 08:42 130 H 115/78 04/16/24 08:20 145 H 121/79 04/16/24 07:30 37 C 148 H 22 139/85 04/16/24 07:00 178 H Pulse Ox O2 Del Method O2 Flow Rate 04/16/24 16:14 04/16/24 16:11 04/16/24 15:40 04/16/24 15:30 04/16/24 15:00 04/16/24 14:30 04/16/24 14:00 04/16/24 13:38 04/16/24 13:30 04/16/24 12:20 90 Room Air 04/16/24 12:07 99 Oxymask 4 04/16/24 12:02 98 Oxymask 4 04/16/24 12:00 99 Oxymask 4 04/16/24 11:55 99 Oxymask 4 04/16/24 11:50 100 Oxymask 4 04/16/24 11:45 100 Oxymask 4 04/16/24 11:38 96 Oxymask 04/16/24 10:00 94 Room Air 04/16/24 08:45 Room Air 04/16/24 08:42 04/16/24 08:20 04/16/24 07:30 94 Room Air 04/16/24 07:00 PG Care Time/CCT Total # of Minutes Spent Total Time Spent with Patient: Total time spent is greater than 50% in coordination of care (as documented) at patient's floor/unit and/or counseling patient: Coding Level of Care Code 45909 SUB INP/OBS CARE 2/35MIN Diagnoses Acute hypoxic respiratory failure J96.01 Chronic kidney disease, stage IV (severe) N18.4 Atrial fibrillation I48.91 Atrial fibrillation type: unspecified Autoimmune hepatitis treated with steroids K75.4 Microcytic anemia D50.9 Thrombocytopenia D69.6 Non-pressure chronic ulcer of right heel and midfoot with fat layer exposed L97.412 Metastatic renal cell carcinoma C64.9 Chronic diastolic CHF (congestive heart failure) I50.32 (3) Atrial fibrillation Atrial fibrillation type: unspecified Qualified Code(s): I48.91 - Unspecified atrial fibrillation
[2024-04-16] MEDS ORDERED: AMIODARONE IV BOLUS & DRIP IV STA (17:54)
[2024-04-16] MEDS ORDERED: 0.2 MICRON FILTER SET 1 EACH IV STA (17:54)
[2024-04-16] MEDS ORDERED: STAT IV Infusion **Titration per Protocol STA (17:54)
[2024-04-16] MEDS: AMIODARONE / D5W 150 MG/100 ML BAG IV STA (18:53)
[2024-04-16] MEDS: AMIODARONE / D5W 360 MG/200 ML BAG IV ONE (19:08)
--- NOTE | 2024-04-16 21:02 | Podiatry Progress Note ---
Date of Service April 16, 2024 Assessment & Plan Admission and Anticipated Discharge Date Admission Date: April 13, 2024 Subjective Patient out of room for PermCath on rounding today. Will reevaluate right heel wounds on Friday should pt remain in house. Follow up in Wound center within 2 wks of d/c. Dressing orders updated for qd application of Santyl to medial right heel wounds followed by boarder foam dressing. Results & Data Results & Data Vital Signs (Past 12 Hours) Vital Signs Temp Pulse Pulse Pulse Resp BP BP 04/16/24 20:04 36.6 C 132 H 20 122/70 04/16/24 18:00 04/16/24 17:18 132 H 04/16/24 16:14 134 H 04/16/24 16:11 127 H 04/16/24 15:40 36.6 C 117 H 100/61 04/16/24 15:30 109 H 86/51 L 04/16/24 15:00 118 H 87/64 L 04/16/24 14:30 125 H 72/56 L 04/16/24 14:00 117 H 95/66 L 04/16/24 13:38 124 H 105/77 04/16/24 13:30 36.6 C 124 H 04/16/24 12:20 36.6 C 119 H 18 112/81 04/16/24 12:07 130 H 14 128/81 04/16/24 12:02 132 H 12 121/89 04/16/24 12:00 142 H 11 L 121/87 04/16/24 11:55 133 H 12 124/89 04/16/24 11:50 128 H 9 L 133/96 04/16/24 11:45 129 H 11 L 141/92 H 04/16/24 11:38 135 H 18 117/92 04/16/24 10:00 37.2 C 125 H 22 120/93 Pulse Ox Pulse Ox O2 Del Method O2 Del Method O2 Flow Rate 04/16/24 20:04 94 Room Air 04/16/24 18:00 94 Room Air 04/16/24 17:18 04/16/24 16:14 04/16/24 16:11 04/16/24 15:40 04/16/24 15:30 04/16/24 15:00 04/16/24 14:30 04/16/24 14:00 04/16/24 13:38 04/16/24 13:30 04/16/24 12:20 90 Room Air 04/16/24 12:07 99 Oxymask 4 04/16/24 12:02 98 Oxymask 4 04/16/24 12:00 99 Oxymask 4 04/16/24 11:55 99 Oxymask 4 04/16/24 11:50 100 Oxymask 4 04/16/24 11:45 100 Oxymask 4 04/16/24 11:38 96 Oxymask 04/16/24 10:00 94 Room Air [place] [address] SUB INP/OBS CARE 04/17MIN Patient Type New
[2024-04-17] MEDS: AMIODARONE / D5W 360 MG/200 ML BAG IV SCH (00:58)
[2024-04-17 06:31] LABS: Hemoglobin 9.4 g/dl (14.0-18.0); Mean Corpuscular Hemoglobin 24.6 pg (25.0-34.0); Mean Corpuscular Hgb Conc 31.3 g/dL (32.0-36.0); Mean Corpuscular Volume 78.5 fL (80.0-100.0); Nucleated RBC # (auto) 0.07 K/uL (0.00-0.12); Nucleated RBC % (auto) 1.2 %; Platelet Count 58 K/uL (130-400); RDW Coefficient of Variation 20.8 % (11.5-14.5); RDW Standard Deviation 56.2 fL (36.4-46.3); Red Blood Count 3.82 M/uL (4.70-6.10); White Blood Count 5.95 K/ul (4.8-10.8)
[2024-04-17 06:51] LABS: BUN Creatinine Ratio 22.2 (10-20); Calcium 8.5 mg/dl (8.6-10.3); Creatinine Clr Calc Pharmacy 23.2 ml/min; Potassium 3.8 mmol/L (3.5-5.1)
--- NOTE | 2024-04-17 07:10 | Hospitalist Progress Note ---
Date of Service April 17, 2024 Assessment & Plan (1) Acute hypoxic respiratory failure: (2) Chronic kidney disease, stage IV (severe): (3) Atrial fibrillation: (4) Autoimmune hepatitis treated with steroids: (5) Microcytic anemia: (6) Thrombocytopenia: (7) Non-pressure chronic ulcer of right heel and midfoot with fat layer exposed: (8) Metastatic renal cell carcinoma: (9) Chronic diastolic CHF (congestive heart failure): Plan This is a 68 year old gentleman with past medical history of CKD, RCC, CHF, autoimmune hepatitis who presented to the ED on 04/13 with a chief complaint of weakness, fatigue, dyspnea on exertion x 1 month. Acute hypoxic respiratory failure Chronic diastolic congestive heart failure -Acute on chronic diastolic CHF + ESRD -Chest CT 04/13: small-mod volume right and small volume left pleural effusions w/ dependent atelectasis. mild-mod diffuse interstitial opacities favored to represent fluid overload/edema. -CTAP 04/13: multiple left renal lesions measuring up to 3cm. -Echo 04/14: LV systolic function normal. moderate concentric LVH. LA moderately dilated. Mild mitral regurg. moderate mitral annular calcification. -CBC benign, BMP with hyponatremia and elevated creatinine. End-stage renal disease on dialysis -Patient with history of CKD stage IV with a baseline creatinine of 3-3.5 -End-stage renal disease due to solitary kidney, hypertensive nephrosclerosis/obesity. Patient also CHF in the setting of kidney failure and progressing azotemia. -Status post permacath placement on 04/16 by vascular surgery followed by for session of hemodialysis. -Plans for dialysis 04/17 and 04/19. -Nephrology following. Lasix DC, IV iron and SCOTT given with hemodialysis. -Will need outpatient dialysis set up. Atrial fibrillation -Patient in A fib RVR secondary to volume overload status - will likely improve when volume status improves. -Cardiology following and recommend increasing metoprolol to 75 mg a.m. and 100 mg p.m. Autoimmune hepatitis treated with steroids -patient had autoimmune hepatitis from his immunotherapy for his renal cell cancer in 2023. -Previously on 10 mg prednisone daily and was recently switched to 20 mg daily prior to admission. -Discussed with hematology oncology who recommends 1 mg/kg/day of Methylpred due to thrombocytopenia. Microcytic anemia -Hb 9.5 on admission. Currently 10.1 -Iron studies revealing iron deficiency anemia 04/14 -plan to have IV iron w/ HD sessions -heme + stool in ED but no signs of overt GI bleeding. -PPI BID -Continue to monitor w/ AM CBC Thrombocytopenia -New onset. -Platelets were normal earlier this fall; now 49 -Peripheral smear by pathology without signs of TTP, etc. -Hold Eliquis. -if plt continues to drop, pt may need transfusion. continue to monitor closely. -Hematology oncology consulted. Recommend to start on 1 mg/kg/day of Methylpred. Continue to monitor closely. Non-pressure chronic ulcer of right heel and midfoot with fat layer exposed -Wound nurse evaluated patient 04/14 and recommended formal podiatry vs surgery consult. -podiatry consulted - recommending betadine to both wounds once daily. if eschar auto debridement or require removal transition to Santyl for primary wound. -okay to bear weight as tolerated in normal shoe gear -no indication for further diagnostic imaging or for surgical intervention. Metastatic renal cell carcinoma -follows with Dr Grijalva, [facility] -on Opdivo - last treatment 03/16/24 -heme/onc consult recs as above Goals of care discussion -Discussed goals of care with patient and at bedside on 04/17. -Patient and wish to continue on with treatment as detailed by nephrology, hematology oncology, and cardiology. Plan Chronic conditions: hypothyroidism: synthrodid SARAH: CPAP HTN: metoprolol full code DVT prophylaxis on hold in setting of acute thrombocytopenia. resume outpatient Eliquis when able. Admission and Anticipated Discharge Date Admission Date: April 13, 2024 Supervising Physician Co-Signing Physician Notes Attending Physician Supervision Note: I independently interviewed and examined the patient and verified the pichardo history and physical, reviewed labs and image studies and agree with findings and care plan noted above. Comfortable in bed. Breathing improving. No chest pain. vitals noted nad heent nc at mmm breathing unlabored no accessory muscles good effort skin no rashes no pallor or icterus neuro no focal deficits. Irregular, CTA anteriorly. Acute resp failure d/t HFpEF d/t RVR - Improving with HR control and dialysis UF. ESRD - Per nephro. needs midodrin prior to HD Permanent A fib, here with RVR - IV amiodarone. cardio following - titrating AV blocking agents. Metastatic renal cell ca/thrombocytopenia - oncology following. IV steroids for concern of autoimmune etiology of thrombocytopenia. may need platelet transfusion. Autoimmune hepatitis - chronic steroids. Foot ulcer - wound care. Heme positive stool on admission - h/h stable. Apixaban on hold. Subjective Patient seen bedside this morning. States that he is feeling better than he did yesterday. He is set up to have dialysis later today. Did discuss with patient that we talk to oncology and recommendation was to increase his steroids. Patient is in agreement with this. Patient and at bedside. Did discuss goals of care. At this time patient wishes to continue with treatment with oncology. Review of Systems Review of Systems: All systems reviewed & are unremarkable except as noted in Subjective Physical Exam Constitutional: WD/WN, vitals as above Eyes: PERRL, conjunctivae normal, anicteric sclerae Respiratory: normal respiratory effort, lungs clear to auscultation Cardiovascular: tachycardic, irregular. Lower extremity edema Gastrointestinal (Abdomen): normal bowel sounds, soft, nontender, no hepatosplenomegaly Psychiatric: A+Ox3, euthymic affect Results & Data Results & Data Vital Signs (Past 12 Hours) Vital Signs Temp Pulse Pulse Pulse Resp BP Pulse Ox 04/17/24 03:02 36.3 C L 98 H 18 111/79 96 04/17/24 00:32 04/16/24 23:59 36.5 C 106 H 20 107/77 94 04/16/24 22:45 106 H 04/16/24 20:04 36.6 C 132 H 20 122/70 94 O2 Del Method O2 Flow Rate 04/17/24 03:02 CPAP 04/17/24 00:32 Nasal Cannula, CPAP 2 04/16/24 23:59 CPAP 04/16/24 22:45 04/16/24 20:04 Room Air (3) Atrial fibrillation Atrial fibrillation type: unspecified Qualified Code(s): I48.91 - Unspecified atrial fibrillation
[2024-04-17] MEDS ORDERED: methylPREDNISolone 4 MG TAB PO SCH (09:00)
[2024-04-17] MEDS: METOPROLOL SUCC 25MG EXT REL TAB PO SCH (09:43)
[2024-04-17] MEDS: COLLAGENASE OINT 30 GM TUBE EXT SCH (10:07)
--- NOTE | 2024-04-17 10:19 | Cardiology Progress Note ---
Date of Service April 17, 2024 Assessment & Plan (1) Atrial fibrillation with rapid ventricular response: Plan: Higher rates currently. 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 His medical regimen was intensified to metoprolol succinate 50 mg in the morning 100 mg in the evening. He continues to have high rates and I believe some of this is related to his clinical status. I suspect that as his volume and acid-base status improves we will see some improvement in overall rate control-await further dialysis. Options for improved rate control over the next few days would include more beta-blockade with the addition of a low-dose calcium channel anish such as diltiazem 30 mg every 6 hours. Can also try intermittent doses of IV digoxin, although given his renal failure this is not a good option overall. (2) S/P TAVR (transcatheter aortic valve replacement): (3) Congestive heart failure (CHF): (4) Mitral regurgitation: (5) End stage chronic kidney disease: (6) Anemia: Admission and Anticipated Discharge Date Admission Date: April 13, 2024 Subjective Patient seen Friday am. Plan for HD later today. Average HR running around 100bpm. Still on IV amio maintanance drip. Will keep for now until we see how his BP does with dialysis today. 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 Has had 2 cardioversions in past, but did not maintain NSR. Review of Systems Review of Systems: All systems reviewed & are unremarkable except as noted in HPI & below Physical Exam Physical Exam: in bed, in NAD extensive bruising b/l arms Respiratory: normal respiratory effort, lungs clear to auscultation no rales at bases Cardiovascular: irregular, tachy Results & Data Vital Signs (Past 12 Hours) Vital Signs Temp Pulse Pulse Pulse Resp BP Pulse Ox 04/17/24 07:36 101 H 04/17/24 07:00 36.6 C 95 H 16 106/74 94 04/17/24 03:02 36.3 C L 98 H 18 111/79 96 04/17/24 00:32 04/16/24 23:59 36.5 C 106 H 20 107/77 94 04/16/24 22:45 106 H O2 Del Method O2 Flow Rate 04/17/24 07:36 04/17/24 07:00 Room Air 04/17/24 03:02 CPAP 04/17/24 00:32 Nasal Cannula, CPAP 2 04/16/24 23:59 CPAP 04/16/24 22:45 Laboratory Results Abnormal lab results 04/13/24 04/16/24 04/16/24 Range/Units 14:52 09:22 12:15 RBC (4.70-6.10) M/uL Hgb (14.0-18.0) g/dl Hct (42.0-52.0) % MCV (80.0-100.0) fL MCH (25.0-34.0) pg MCHC (32.0-36.0) g/dL RDW Std Deviation (36.4-46.3) fL RDW Coeff of Nick (11.5-14.5) % Plt Count (130-400) K/uL Sodium 133 L (136-145) mmol/L Carbon Dioxide 13 L (21-32) mmol/L Anion Gap 16 H (3-11) BUN 129 H (6-23) mg/dl Creatinine 4.80 H* (0.6-1.4) mg/dl BUN/Creatinine Ratio 26.9 H (10-20) Glucose 122 H (70-99(Fasting)) mg/dl POC Glucose 136 H (70-99) mg/dl Calcium (8.6-10.3) mg/dl Crossmatch See Detail 04/16/24 04/16/24 04/17/24 Range/Units 16:29 20:15 06:05 RBC 3.82 L (4.70-6.10) M/uL Hgb 9.4 L (14.0-18.0) g/dl Hct 30.0 L (42.0-52.0) % MCV 78.5 L (80.0-100.0) fL MCH 24.6 L (25.0-34.0) pg MCHC 31.3 L (32.0-36.0) g/dL RDW Std Deviation 56.2 H (36.4-46.3) fL RDW Coeff of Nick 20.8 H (11.5-14.5) % Plt Count 58 L (130-400) K/uL Sodium 133 L (136-145) mmol/L Carbon Dioxide 20 L (21-32) mmol/L Anion Gap 12 H (3-11) BUN 103 H D (6-23) mg/dl Creatinine 4.64 H* (0.6-1.4) mg/dl BUN/Creatinine Ratio 22.2 H (10-20) Glucose 153 H (70-99(Fasting)) mg/dl POC Glucose 141 H 155 H (70-99) mg/dl Calcium 8.5 L (8.6-10.3) mg/dl Crossmatch 04/17/24 Range/Units 07:38 RBC (4.70-6.10) M/uL Hgb (14.0-18.0) g/dl Hct (42.0-52.0) % MCV (80.0-100.0) fL MCH (25.0-34.0) pg MCHC (32.0-36.0) g/dL RDW Std Deviation (36.4-46.3) fL RDW Coeff of Nick (11.5-14.5) % Plt Count (130-400) K/uL Sodium (136-145) mmol/L Carbon Dioxide (21-32) mmol/L Anion Gap (3-11) BUN (6-23) mg/dl Creatinine (0.6-1.4) mg/dl BUN/Creatinine Ratio (10-20) Glucose (70-99(Fasting)) mg/dl POC Glucose 144 H (70-99) mg/dl Calcium (8.6-10.3) mg/dl Crossmatch Medications Administered Current Inpatient Medications Collagenase (Collagenase Oint 30 Gm Tube) 1 appln EXT QD@08 GURU Stop: 05/17/24 07:59 Last Admin: 04/17/24 10:07 Dose: 1 appln Dextrose (Dextrose 50% 50 Ml Syringe) 25 - 50 ml IV UD PRN; Protocol PRN Reason: Hypoglycemia Protocol Stop: 05/13/24 18:44 Glucagon (Glucagon For Inj 1 Mg Vial) 1 mg SQ UD PRN; Protocol PRN Reason: Hypoglycemia Protocol Stop: 05/13/24 18:44 Glucose (Glucose 40% Gel 15 Gm Tube) 15 - 30 gm PO UD PRN; Protocol PRN Reason: Hypoglycemia Protocol Stop: 05/13/24 18:44 Glucose (Glucose 10 Tab/Tube) 4 - 8 tab PO UD PRN; Protocol PRN Reason: Hypoglycemia Protocol Stop: 05/13/24 18:44 Pantoprazole Sodium (Protonix) 40 mg in 10 mls @ 5 mls/min IV BID GURU Stop: 05/14/24 20:59 Last Admin: 04/17/24 09:44 Dose: 5 mls/min Amiodarone HCl/Dextrose (Nexterone / D5w) 360 mg in 200 mls @ 16.667 mls/hr IV .Q12H GURU Stop: 05/16/24 23:44 Last Admin: 04/17/24 00:58 Dose: 0.5 mg/min, 16.7 mls/hr Methylprednisolone 150 mg/ (Syringe) 2.4 mls @ 0.667 mls/min IV DAILY GURU Stop: 05/17/24 08:59 Levothyroxine Sodium (Levothyroxine Sodium 200 Mcg Tablet) 200 mcg PO DAILYBB GURU Stop: 05/14/24 06:29 Last Admin: 04/17/24 06:12 Dose: 200 mcg Metoprolol Succinate (Metoprolol Succ 50mg Ext Rel Tab) 100 mg PO QPM GURU Stop: 05/15/24 20:59 Last Admin: 04/16/24 20:33 Dose: 100 mg Metoprolol Succinate (Metoprolol Succ 25mg Ext Rel Tab) 75 mg PO QAM [facility] Stop: 05/17/24 08:59 Last Admin: 04/17/24 09:43 Dose: 75 mg Miscellaneous (Carbohydrates For Hypoglycemia ) 15 - 30 gm PO UD PRN PRN Reason: Hypoglycemia Treatment Stop: 05/13/24 18:44 Ondansetron HCl (Ondansetron Inj 2 Mg/Ml 2 Ml Vial) 4 mg IV Q6H PRN PRN Reason: Nausea Stop: 05/13/24 18:28 Sodium Bicarbonate (Sodium Bicarbonate 650 Mg Tab) 650 mg PO BID [facility] Stop: 05/13/24 21:14 Last Admin: 04/17/24 09:43 Dose: 650 mg Vitamin B Complex/Folic Acid (Nephrocaps) 1 cap PO QAM [facility] Stop: 05/15/24 08:59 Last Admin: 04/17/24 09:43 Dose: 1 cap
[2024-04-17] MEDS: METHYLPREDNISOLONE IV SCH (11:21)
--- NOTE | 2024-04-17 12:07 | Nephrology Progress Note ---
Date of Service April 17, 2024 Assessment & Plan (1) End stage renal disease on dialysis: (2) Anemia: (3) Hyperkalemia: (4) Pulmonary edema: (5) Congestive heart failure (CHF): Plan 68-year-old gentleman with end-stage kidney disease with solitary kidney and hypertensive nephrosclerosis, had tunneled dialysis catheter placed on 04/16/2024 and had first dialysis treatment yesterday. Had right brachiocephalic AV fistula placed in September 2023 but failed to mature. Overall feeling better after dialysis yesterday. --Plan for 3 hours dialysis today, will try UF 1 to 1.5 L --Midodrine 10 mg prior to dialysis --Discontinue sodium bicarbonate, start on renal vitamin. --Right arm nephrology precaution --Dose medications for less than 10. Admission and Anticipated Discharge Date Admission Date: April 13, 2024 Subjective Mr. Guadalupe was seen and evaluated this morning. He reports overall feeling much better and tolerated 2 hours dialysis yesterday and had around 500 mL of UF. Blood pressure staying relatively low. Tachycardic with heart rate around 90s on metoprolol. Review of Systems Review of Systems: All systems reviewed & are unremarkable except as noted in Subjective Physical Exam Constitutional: WD/WN, vitals as above no acute distress Eyes: + anicteric sclerae Neck: normal visual inspection Respiratory: no respiratory distress Auscultation: lungs clear to auscultation bilaterally Cardiovascular: Rate/Rhythm: regular rate and regular rhythm Heart Sounds: normal S1 and normal S2 Extremities: + edema, + vascular access device ( IJ TDC) and + AV fistula (rt BC AVF with minimum bruit) Skin: no rashes, warm and dry Neurologic: no focal motor deficits and not confused Psychiatric: Orientation: alert and oriented x 3 Results & Data Vital Signs (Past 12 Hours) Vital Signs Temp Pulse Pulse Resp BP Pulse Ox O2 Del Method 04/17/24 10:54 36.7 C 96 H 16 108/76 91 Room Air 04/17/24 07:36 101 H 04/17/24 07:00 36.6 C 95 H 16 106/74 94 Room Air 04/17/24 03:02 36.3 C L 98 H 18 111/79 96 CPAP 04/17/24 00:32 Nasal Cannula, CPAP O2 Flow Rate 04/17/24 10:54 04/17/24 07:36 04/17/24 07:00 04/17/24 03:02 04/17/24 00:32 2 PG Care Time/CCT Total # of Minutes Spent Total Time Spent with Patient: Total time spent is greater than 50% in coordination of care (as documented) at patient's floor/unit and/or counseling patient: Coding Level of Care Code 21040 SUB INP/OBS CARE 2/35MIN Diagnoses End stage renal disease on dialysis N18.6; Z99.2 Anemia D64.9 Hyperkalemia E87.5 Pulmonary edema J81.0 Chronicity: acute Congestive heart failure (CHF) I50.9 (4) Pulmonary edema Chronicity: acute Qualified Code(s): J81.0 - Acute pulmonary edema
[2024-04-17] MEDS: MIDODRINE HCL 10 MG TAB PO SCH (13:27)
--- NOTE | 2024-04-18 06:49 | Hospitalist Progress Note ---
Date of Service April 18, 2024 Assessment & Plan (1) Acute hypoxic respiratory failure: (2) Chronic kidney disease, stage IV (severe): (3) Atrial fibrillation: (4) Autoimmune hepatitis treated with steroids: (5) Microcytic anemia: (6) Thrombocytopenia: (7) Non-pressure chronic ulcer of right heel and midfoot with fat layer exposed: (8) Metastatic renal cell carcinoma: (9) Chronic diastolic CHF (congestive heart failure): (10) Hyperglycemia: Plan This is a 68 year old gentleman with past medical history of CKD, RCC, CHF, autoimmune hepatitis who presented to the ED on 04/13 with a chief complaint of weakness, fatigue, dyspnea on exertion x 1 month. Acute hypoxic respiratory failure Chronic diastolic congestive heart failure -Acute on chronic diastolic CHF + ESRD -Chest CT 04/13: small-mod volume right and small volume left pleural effusions w/ dependent atelectasis. mild-mod diffuse interstitial opacities favored to represent fluid overload/edema. -CTAP 04/13: multiple left renal lesions measuring up to 3cm. -Echo 04/14: LV systolic function normal. moderate concentric LVH. LA moderately dilated. Mild mitral regurg. moderate mitral annular calcification. -CBC benign, BMP with hyponatremia and elevated creatinine. End-stage renal disease on dialysis -Patient with history of CKD stage IV with a baseline creatinine of 3-3.5 -End-stage renal disease due to solitary kidney, hypertensive nephrosc lerosis/obesity. Patient also CHF in the setting of kidney failure and progressing azotemia. -Status post permacath placement on 04/16 by vascular surgery followed by for session of hemodialysis. -Plans for dialysis 04/17 and 04/19. -Nephrology following. Lasix DC, IV iron and SCOTT given with hemodialysis. -Will be given midodrine 10 mg prior to dialysis. -Will need outpatient dialysis set up. Atrial fibrillation -Patient in A fib RVR secondary to volume overload status - will likely improve when volume status improves. -Cardiology following and recommend increasing metoprolol to 75 mg a.m. and 100 mg p.m. Autoimmune hepatitis treated with steroids -patient had autoimmune hepatitis from his immunotherapy for his renal cell cancer in 2023. -Previously on 10 mg prednisone daily and was recently switched to 20 mg daily prior to admission. -Discussed with hematology oncology who recommends 1 mg/kg/day of Methylpred due to thrombocytopenia. Hyperglycemia -Patient with elevated glucose of 315 today. No known history of diabetes. -Last hemoglobin A1c on showed a hemoglobin A1c of 6.3. -Most likely secondary to Methylpred as below. -Will start on sliding scale insulin with Lantus 5 units twice daily. -Hemoglobin A1c in the AM. Microcytic anemia -Hb 9.5 on admission. Currently 10.1 -Iron studies revealing iron deficiency anemia 04/14 -plan to have IV iron w/ HD sessions -heme + stool in ED but no signs of overt GI bleeding. -PPI BID -Continue to monitor w/ AM CBC Thrombocytopenia -New onset. -Platelets were normal earlier this fall; now 49 -Peripheral smear by pathology without signs of TTP, etc. -Hold Eliquis. -if plt continues to drop, pt may need transfusion. continue to monitor closely. -Hematology oncology consulted. Recommend to start on 1 mg/kg/day of Methylpred. Continue to monitor closely. Non-pressure chronic ulcer of right heel and midfoot with fat layer exposed -Wound nurse evaluated patient 04/14 and recommended formal podiatry vs surgery consult. -podiatry consulted - recommending betadine to both wounds once daily. if eschar auto debridement or require removal transition to Santyl for primary wound. -okay to bear weight as tolerated in normal shoe gear -no indication for further diagnostic imaging or for surgical intervention. Metastatic renal cell carcinoma -follows with Dr Grijalva, [facility] -on Opdivo - last treatment 03/16/24 -heme/onc consult recs as above Goals of care discussion -Discussed goals of care with patient and at bedside on 04/17. -Patient and wish to continue on with treatment as detailed by nephrology, hematology oncology, and cardiology. Plan Chronic conditions: hypothyroidism: synthrodid SARAH: CPAP HTN: metoprolol full code DVT prophylaxis on hold in setting of acute thrombocytopenia. resume outpatient Eliquis when able. Admission and Anticipated Discharge Date Admission Date: April 13, 2024 Supervising Physician Co-Signing Physician Notes Attending Physician Supervision Note: I independently interviewed and examined the patient and verified the pichardo history and physical, reviewed labs and image studies and agree with findings and care plan noted above. Comfortable sitting in chair. Breathing is much better. No chest pain. vitals noted nad heent nc at mmm breathing unlabored no accessory muscles good effort skin no rashes no pallor or icterus neuro no focal deficits. Irregular, CTA Acute resp failure d/t HFpEF d/t RVR - Improving with HR control and dialysis UF. ESRD - Per nephro. needs midodrin prior to HD. Permanent A fib, here with RVR - Cardio - added diltiazem in attempt to d/c IV amiodarone. continue metoprolol. Metastatic renal cell ca/thrombocytopenia - oncology following. IV steroids for concern of autoimmune etiology of thrombocytopenia. platelet count better. Autoimmune hepatitis - chronic steroids. Foot ulcer - wound care. Heme positive stool on admission - h/h stable. Apixaban on hold d/t thrombocytopenia. SCD Subjective Patient was seen bedside this morning. States that he is feeling better. States that he was very bad on Friday and feels a lot better now. States that he tolerated dialysis yesterday well. Scheduled to have dialysis tomorrow. States that he is still urinating at this time but in lower amounts. No shortness of breath, chest pain, nausea, or vomiting. Review of Systems Review of Systems: All systems reviewed & are unremarkable except as noted in Subjective Physical Exam Constitutional: WD/WN, vitals as above Eyes: PERRL, conjunctivae normal, anicteric sclerae Respiratory: normal respiratory effort, lungs clear to auscultation Gastrointestinal (Abdomen): normal bowel sounds, soft, nontender, no hepatosplenomegaly Psychiatric: A+Ox3, euthymic affect Results & Data Results & Data Vital Signs (Past 12 Hours) Vital Signs Temp Pulse Pulse Resp BP Pulse Ox O2 Del Method 04/18/24 03:07 36.3 C L 94 H 18 122/88 96 CPAP 04/17/24 23:24 36.3 C L 96 H 20 110/78 97 CPAP 04/17/24 22:04 93 H 04/17/24 20:30 Nasal Cannula 04/17/24 19:51 36.7 C 96 H 20 108/71 92 Room Air O2 Flow Rate 04/18/24 03:07 04/17/24 23:24 04/17/24 22:04 04/17/24 20:30 2 04/17/24 19:51 (3) Atrial fibrillation Atrial fibrillation type: unspecified Qualified Code(s): I48.91 - Unspecified atrial fibrillation
[2024-04-18 07:04] LABS: Hematocrit (blood only) 28.4 % (42.0-52.0); Mean Corpuscular Hemoglobin 24.8 pg (25.0-34.0); Mean Corpuscular Hgb Conc 31.7 g/dL (32.0-36.0); Mean Corpuscular Volume 78.2 fL (80.0-100.0); Nucleated RBC % (auto) 1.4 %; Platelet Count 67 K/uL (130-400); RDW Coefficient of Variation 20.5 % (11.5-14.5); RDW Standard Deviation 56.7 fL (36.4-46.3); Red Blood Count 3.63 M/uL (4.70-6.10); White Blood Count 7.04 K/ul (4.8-10.8)
[2024-04-18 07:36] LABS: Albumin Level 2.5 gm/dl (3.4-5.0); BUN Creatinine Ratio 19.2 (10-20); Bilirubin,Total 1.2 mg/dl (0.2-1.0); Calcium 8.6 mg/dl (8.6-10.3); Globulin 2.5 gm/dl (2.5-4.0); Magnesium 2.2 mg/dl (1.7-2.4); Phosphorus 6.3 mg/dl (2.5-4.9)
[2024-04-18] MEDS ORDERED: NEPHROCAPS PO SCH (09:00)
--- NOTE | 2024-04-18 11:07 | Cardiology Progress Note ---
Date of Service April 18, 2024 Assessment & Plan (1) Atrial fibrillation with rapid ventricular response: Plan: Will add po diltiazem and try to wean off the IV amiodarone as long as his BP tolerates. Will follow BPs for now. (2) S/P TAVR (transcatheter aortic valve replacement): (3) Congestive heart failure (CHF): (4) Mitral regurgitation: (5) End stage chronic kidney disease: (6) Anemia: Admission and Anticipated Discharge Date Admission Date: April 13, 2024 Subjective Pt seen and examined. Looks better today. OOB in chair. Tolerated HD yesterday fairly well. BPs were lower but ok. BP this am 130s/90s Will try to start po diltiazem and dc the IV amio. Pt to have additional HD tomorrow. We also reviewed he has a f/u appt with his primary cards and PCP Dr. Veronica Tucker in the future. would consider checking an EVENT monitor on him after he is stabilized with HD. Review of Systems Review of Systems: All systems reviewed & are unremarkable except as noted in HPI & below Physical Exam Physical Exam: AAO in NAD Respiratory: normal respiratory effort, lungs clear to auscultation Cardiovascular: irregular tachy Results & Data Vital Signs (Past 12 Hours) Vital Signs Temp Pulse Pulse Resp BP Pulse Ox O2 Del Method 04/18/24 10:54 36.5 C 87 18 114/74 96 Room Air 04/18/24 08:00 Nasal Cannula 04/18/24 07:28 36.5 C 105 H 18 132/91 96 Room Air 04/18/24 07:00 36.5 C 105 H 18 132/91 96 Room Air 04/18/24 03:07 36.3 C L 94 H 18 122/88 96 CPAP 04/17/24 23:24 36.3 C L 96 H 20 110/78 97 CPAP O2 Flow Rate 04/18/24 10:54 04/18/24 08:00 2 04/18/24 07:28 04/18/24 07:00 04/18/24 03:07 04/17/24 23:24 Laboratory Results Abnormal lab results 04/17/24 04/17/24 04/17/24 Range/Units 11:19 16:58 20:31 RBC (4.70-6.10) M/uL Hgb (14.0-18.0) g/dl Hct (42.0-52.0) % MCV (80.0-100.0) fL MCH (25.0-34.0) pg MCHC (32.0-36.0) g/dL RDW Std Deviation (36.4-46.3) fL RDW Coeff of Nick (11.5-14.5) % Plt Count (130-400) K/uL Sodium (136-145) mmol/L Carbon Dioxide (21-32) mmol/L Anion Gap (3-11) BUN (6-23) mg/dl Creatinine (0.6-1.4) mg/dl Glucose (70-99(Fasting)) mg/dl POC Glucose 188 H 164 H 276 H (70-99) mg/dl Phosphorus (2.5-4.9) mg/dl Total Bilirubin (0.2-1.0) mg/dl Alkaline Phosphatase (34-104) U/L Total Protein (6.0-8.3) gm/dl Albumin (3.4-5.0) gm/dl 04/18/24 04/18/24 04/18/24 Range/Units 04:55 06:37 07:44 RBC 3.63 L (4.70-6.10) M/uL Hgb 9.0 L (14.0-18.0) g/dl Hct 28.4 L (42.0-52.0) % MCV 78.2 L (80.0-100.0) fL MCH 24.8 L (25.0-34.0) pg MCHC 31.7 L (32.0-36.0) g/dL RDW Std Deviation 56.7 H (36.4-46.3) fL RDW Coeff of Nick 20.5 H (11.5-14.5) % Plt Count 67 L (130-400) K/uL Sodium 133 L (136-145) mmol/L Carbon Dioxide 20 L (21-32) mmol/L Anion Gap 13 H (3-11) BUN 76 H D (6-23) mg/dl Creatinine 3.96 H D (0.6-1.4) mg/dl Glucose 211 H (70-99(Fasting)) mg/dl POC Glucose 218 H 202 H (70-99) mg/dl Phosphorus 6.3 H (2.5-4.9) mg/dl Total Bilirubin 1.2 H (0.2-1.0) mg/dl Alkaline Phosphatase 117 H (34-104) U/L Total Protein 5.0 L (6.0-8.3) gm/dl Albumin 2.5 L (3.4-5.0) gm/dl Medications Administered Current Inpatient Medications Collagenase (Collagenase Oint 30 Gm Tube) 1 appln EXT QD@08 GURU Stop: 05/17/24 07:59 Last Admin: 04/18/24 08:47 Dose: 1 appln Dextrose (Dextrose 50% 50 Ml Syringe) 25 - 50 ml IV UD PRN; Protocol PRN Reason: Hypoglycemia Protocol Stop: 05/13/24 18:44 Glucagon (Glucagon For Inj 1 Mg Vial) 1 mg SQ UD PRN; Protocol PRN Reason: Hypoglycemia Protocol Stop: 05/13/24 18:44 Glucose (Glucose 40% Gel 15 Gm Tube) 15 - 30 gm PO UD PRN; Protocol PRN Reason: Hypoglycemia Protocol Stop: 05/13/24 18:44 Glucose (Glucose 10 Tab/Tube) 4 - 8 tab PO UD PRN; Protocol PRN Reason: Hypoglycemia Protocol Stop: 05/13/24 18:44 Pantoprazole Sodium (Protonix) 40 mg in 10 mls @ 5 mls/min IV BID GURU Stop: 05/14/24 20:59 Last Admin: 04/18/24 08:47 Dose: 5 mls/min Amiodarone HCl/Dextrose (Nexterone / D5w) 360 mg in 200 mls @ 16.667 mls/hr IV .Q12H GURU Stop: 05/16/24 23:44 Last Admin: 04/18/24 00:52 Dose: 0.5 mg/min, 16.7 mls/hr Methylprednisolone 150 mg/ (Syringe) 2.4 mls @ 0.667 mls/min IV DAILY GURU Stop: 05/17/24 08:59 Last Admin: 04/18/24 08:40 Dose: 0.667 mls/min Levothyroxine Sodium (Levothyroxine Sodium 200 Mcg Tablet) 200 mcg PO DAILYBB GURU Stop: 05/14/24 06:29 Last Admin: 04/18/24 06:00 Dose: 200 mcg Metoprolol Succinate (Metoprolol Succ 50mg Ext Rel Tab) 100 mg PO QPM [facility] Stop: 05/15/24 20:59 Last Admin: 04/17/24 20:27 Dose: 100 mg Metoprolol Succinate (Metoprolol Succ 25mg Ext Rel Tab) 75 mg PO QAM [facility] Stop: 05/17/24 08:59 Last Admin: 04/18/24 08:45 Dose: 75 mg Miscellaneous (Carbohydrates For Hypoglycemia ) 15 - 30 gm PO UD PRN PRN Reason: Hypoglycemia Treatment Stop: 05/13/24 18:44 Ondansetron HCl (Ondansetron Inj 2 Mg/Ml 2 Ml Vial) 4 mg IV Q6H PRN PRN Reason: Nausea Stop: 05/13/24 18:28 Vitamin B Complex/Folic Acid (Nephrocaps) [facility] Stop: 05/15/24 08:59 Last Admin: 04/18/24 08:47 Dose: 1 cap
--- NOTE | 2024-04-18 11:23 | Nephrology Progress Note ---
Date of Service April 18, 2024 Assessment & Plan (1) End stage renal disease on dialysis: (2) Anemia: (3) Hyperkalemia: (4) Pulmonary edema: (5) Congestive heart failure (CHF): Plan 68-year-old gentleman with end-stage kidney disease with solitary kidney and hypertensive nephrosclerosis, had tunneled dialysis catheter placed on 04/16/2024 and had first dialysis treatment yesterday. Had right brachiocephalic AV fistula placed in September 2023 but failed to mature. Overall feeling better since started on dialysis. Blood pressure stable. Volume status slowly improving. --Plan for 4 hours dialysis Friday, aim for UF 2 to 3 L,continue to challenge weight. --Midodrine 10 mg prior to dialysis --continue renal vitamin. --Right arm nephrology precaution --Dose medications for less than 10. --Waiting on outpatient dialysis set up at [facility] [place]. Admission and Anticipated Discharge Date Admission Date: April 13, 2024 Subjective Mr. Guadalupe was seen and evaluated this morning. Had dialysis yesterday for 3 hours, had 1.5 L UF, tolerated well with midodrine prior to dialysis and blood pressure was relatively stable. Appetite improved. Denies any other symptoms. Review of Systems Review of Systems: Detailed review of system was done and pertinent positives and negatives are mentioned above. Physical Exam Constitutional: WD/WN, vitals as above no acute distress Eyes: + anicteric sclerae Neck: normal visual inspection Respiratory: no respiratory distress Auscultation: lungs clear to auscultation bilaterally Cardiovascular: Rate/Rhythm: regular rate and regular rhythm Heart Sounds: normal S1 and normal S2 Extremities: + edema, + vascular access device ( IJ TDC) and + AV fistula (rt BC AVF with minimum bruit) Skin: no rashes, warm and dry Neurologic: no focal motor deficits and not confused Psychiatric: Orientation: alert and oriented x 3 Results & Data Vital Signs (Past 12 Hours) Vital Signs Temp Pulse Pulse Resp BP Pulse Ox O2 Del Method 04/18/24 10:54 36.5 C 87 18 114/74 96 Room Air 04/18/24 08:00 Nasal Cannula 04/18/24 07:28 36.5 C 105 H 18 132/91 96 Room Air 04/18/24 07:00 36.5 C 105 H 18 132/91 96 Room Air 04/18/24 03:07 36.3 C L 94 H 18 122/88 96 CPAP 04/17/24 23:24 36.3 C L 96 H 20 110/78 97 CPAP O2 Flow Rate 04/18/24 10:54 04/18/24 08:00 2 04/18/24 07:28 04/18/24 07:00 04/18/24 03:07 04/17/24 23:24 PG Care Time/CCT Total # of Minutes Spent Total Time Spent with Patient: Total time spent is greater than 50% in coordination of care (as documented) at patient's floor/unit and/or counseling patient: Coding Level of Care Code 62696 SUB INP/OBS CARE 235MIN Diagnoses End stage renal disease on dialysis N18.6; Z99.2 Anemia D64.9 Hyperkalemia E87.5 Pulmonary edema J81.0 Chronicity: acute Congestive heart failure (CHF) I50.9 (4) Pulmonary edema Chronicity: acute Qualified Code(s): J81.0 - Acute pulmonary edema
[2024-04-18] MEDS: LANTUS PER UNIT CHARGE SQ SCH (13:06)
[2024-04-18] MEDS: INSULIN ASPART PER UNIT CHARGE SC SCH (13:06)
[2024-04-18] MEDS: dilTIAZem HCL 30 MG TAB PO SCH (14:07)
--- NOTE | 2024-04-19 08:01 | Hospitalist Progress Note ---
Date of Service April 19, 2024 Assessment & Plan (1) Acute hypoxic respiratory failure: (2) Chronic kidney disease, stage IV (severe): (3) Atrial fibrillation: (4) Autoimmune hepatitis treated with steroids: (5) Microcytic anemia: (6) Thrombocytopenia: (7) Non-pressure chronic ulcer of right heel and midfoot with fat layer exposed: (8) Metastatic renal cell carcinoma: (9) Chronic diastolic CHF (congestive heart failure): (10) Hyperglycemia: Plan This is a 68 year old gentleman with past medical history of CKD, RCC, CHF, autoimmune hepatitis who presented to the ED on 04/13 with a chief complaint of weakness, fatigue, dyspnea on exertion x 1 month. Acute hypoxic respiratory failure Chronic diastolic congestive heart failure -Acute on chronic diastolic CHF + ESRD -Chest CT 04/13: small-mod volume right and small volume left pleural effusions w/ dependent atelectasis. mild-mod diffuse interstitial opacities favored to represent fluid overload/edema. -CTAP 04/13: multiple left renal lesions measuring up to 3cm. -Echo 04/14: LV systolic function normal. moderate concentric LVH. LA moderately dilated. Mild mitral regurg. moderate mitral annular calcification. -CBC benign, BMP with hyponatremia and elevated creatinine. End-stage renal disease on dialysis -Patient with history of CKD stage IV with a baseline creatinine of 3-3.5 -End-stage renal disease due to solitary kidney, hypertensive nephrosc lerosis/obesity. Patient also CHF in the setting of kidney failure and progressing azotemia. -Status post permacath placement on 04/16 by vascular surgery followed by for session of hemodialysis. -Plans for dialysis 04/17 and 04/19. -Nephrology following. Lasix DC, IV iron and SCOTT given with hemodialysis. -Will be given midodrine 10 mg prior to dialysis. -Will need outpatient dialysis set up. Atrial fibrillation -Patient in A fib RVR secondary to volume overload status - will likely improve when volume status improves. -Cardiology following and recommend increasing metoprolol to 75 mg a.m. and 100 mg p.m. Autoimmune hepatitis treated with steroids -patient had autoimmune hepatitis from his immunotherapy for his renal cell cancer in 2023. -Previously on 10 mg prednisone daily and was recently switched to 20 mg daily prior to admission. -Discussed with hematology oncology who recommends 1 mg/kg/day of Methylpred due to thrombocytopenia. Hyperglycemia -Patient with elevated glucose of 315 today. No known history of diabetes. -Last hemoglobin A1c on showed a hemoglobin A1c of 6.3. -Most likely secondary to Methylpred as below. -Will start on sliding scale insulin with Lantus 5 units twice daily. -Hemoglobin A1c in the AM. Microcytic anemia -Hb 9.5 on admission. Currently 10.1 -Iron studies revealing iron deficiency anemia 04/14 -plan to have IV iron w/ HD sessions -heme + stool in ED but no signs of overt GI bleeding. -PPI BID -Continue to monitor w/ AM CBC Thrombocytopenia -New onset. -Platelets were normal earlier this fall; now 49 -Peripheral smear by pathology without signs of TTP, etc. -Hold Eliquis. -if plt continues to drop, pt may need transfusion. continue to monitor closely. -Hematology oncology consulted. Recommend to start on 1 mg/kg/day of Methylpred. Continue to monitor closely. Non-pressure chronic ulcer of right heel and midfoot with fat layer exposed -Wound nurse evaluated patient 04/14 and recommended formal podiatry vs surgery consult. -podiatry consulted - recommending betadine to both wounds once daily. if eschar auto debridement or require removal transition to Santyl for primary wound. -okay to bear weight as tolerated in normal shoe gear -no indication for further diagnostic imaging or for surgical intervention. Metastatic renal cell carcinoma -follows with Dr Grijalva[facility] -on Opdivo - last treatment 03/16/24 -heme/onc consult recs as above Goals of care discussion -Discussed goals of care with patient and at bedside on 04/17. -Patient and wish to continue on with treatment as detailed by nephrology, hematology oncology, and cardiology. Plan Chronic conditions: hypothyroidism: synthrodid SARAH: CPAP HTN: metoprolol full code DVT prophylaxis on hold in setting of acute thrombocytopenia. resume outpatient Eliquis when able. Admission and Anticipated Discharge Date Admission Date: April 13, 2024 Results & Data Results & Data Vital Signs (Past 12 Hours) Vital Signs Temp Pulse Pulse Resp BP Pulse Ox O2 Del Method 04/19/24 07:27 90 04/19/24 07:00 36.7 C 103 H 18 107/77 93 Room Air 04/19/24 04:12 36.6 C 98 H 18 117/78 97 CPAP 04/18/24 22:37 36.6 C 99 H 18 119/85 96 Room Air 04/18/24 21:54 107 H Resident Activity Tracking Resident Involvement: Resident Care Provided Care Provided: Adult Hospital Medicine (3) Atrial fibrillation Atrial fibrillation type: unspecified Qualified Code(s): I48.91 - Unspecified atrial fibrillation
[2024-04-19] MEDS: EPOETIN ALFA 10,000 UNITS/ML VIAL IV STA (09:22)
[2024-04-19 09:32] LABS: Hemoglobin 9.1 g/dl (14.0-18.0); Mean Corpuscular Hemoglobin 23.9 pg (25.0-34.0); Mean Corpuscular Hgb Conc 30.3 g/dL (32.0-36.0); Mean Corpuscular Volume 78.7 fL (80.0-100.0); Nucleated RBC # (auto) 0.24 K/uL (0.00-0.12); Nucleated RBC % (auto) 2.2 %; Platelet Count 96 K/uL (130-400); RDW Coefficient of Variation 20.8 % (11.5-14.5); Red Blood Count 3.81 M/uL (4.70-6.10); White Blood Count 10.85 K/ul (4.8-10.8)
[2024-04-19 09:51] LABS: Albumin Globulin Ratio 1.1 (0.9-2); Albumin Level 2.7 gm/dl (3.4-5.0); BUN Creatinine Ratio 17.5 (10-20); Bilirubin,Total 1.1 mg/dl (0.2-1.0); Creatinine Clr Calc Pharmacy 19.3 ml/min; Globulin 2.5 gm/dl (2.5-4.0); Magnesium 2.2 mg/dl (1.7-2.4); Phosphorus 8.1 mg/dl (2.5-4.9); Potassium 3.8 mmol/L (3.5-5.1); Total Protein 5.2 gm/dl (6.0-8.3)
[2024-04-19 10:01] LABS: Estimated Average Glucose 128 mg/dl; Hemoglobin A1C 6.1 % (4.5-5.6)
--- NOTE | 2024-04-19 10:16 | Nephrology Progress Note ---
Date of Service April 19, 2024 Assessment & Plan (1) End stage renal disease on dialysis: (2) Anemia: (3) Hyperkalemia: (4) Pulmonary edema: (5) Congestive heart failure (CHF): Plan 68-year-old gentleman with end-stage kidney disease with solitary kidney and hypertensive nephrosclerosis, had tunneled dialysis catheter placed on 04/16/2024 and had first dialysis treatment yesterday. Had right brachiocephalic AV fistula placed in September 2023 but failed to mature. Overall feeling better since started on dialysis. Blood pressure stable. Volume status slowly improving. --4 hours dialysis today and then continue MWF, aim for UF 2 to 3 L, continue to challenge weight. --Midodrine 10 mg prior to dialysis --continue renal vitamin. --Right arm nephrology precaution --Dose medications for less than 10. --Waiting on outpatient dialysis set up at [facility] [place]. Admission and Anticipated Discharge Date Admission Date: April 13, 2024 Subjective Mr. Guadalupe was seen and evaluated during dialysis this morning. He reports feeling progressively better over last few days after starting dialysis. Tolerating dialysis now, blood pressure low but asymptomatic. Appetite improved. Denies any other symptoms. Review of Systems Review of Systems: Detailed review of system was done and pertinent positives and negatives are mentioned above. Physical Exam Constitutional: WD/WN, vitals as above no acute distress Eyes: + anicteric sclerae Respiratory: no respiratory distress Auscultation: lungs clear to auscultation bilaterally Cardiovascular: Rate/Rhythm: regular rate and regular rhythm Heart Sounds: normal S1 and normal S2 Extremities: + edema, + vascular access device ( IJ TDC) and + AV fistula (rt BC AVF with minimum bruit) Skin: + lesion and + erythema Neurologic: no focal motor deficits and not confused Psychiatric: Orientation: alert and oriented x 3 Results & Data Vital Signs (Past 12 Hours) Vital Signs Temp Pulse Pulse Resp BP BP Pulse Ox 04/19/24 09:30 72 104/73 04/19/24 09:00 111 H 103/81 04/19/24 08:48 99 H 113/83 04/19/24 08:39 36.4 C L 103 H 04/19/24 07:27 90 04/19/24 07:00 36.7 C 103 H 18 107/77 93 04/19/24 04:12 36.6 C 98 H 18 117/78 97 04/18/24 22:37 36.6 C 99 H 18 119/85 96 O2 Del Method 04/19/24 09:30 04/19/24 09:00 04/19/24 08:48 04/19/24 08:39 04/19/24 07:27 04/19/24 07:00 Room Air 04/19/24 04:12 CPAP 04/18/24 22:37 Room Air PG Care Time/CCT Total # of Minutes Spent Total Time Spent with Patient: Total time spent is greater than 50% in coordination of care (as documented) at patient's floor/unit and/or counseling patient: Coding Level of Care Code 03390 SUB INP/OBS CARE 2/35MIN Diagnoses End stage renal disease on dialysis N18.6; Z99.2 Anemia D64.9 Hyperkalemia E87.5 Pulmonary edema J81.0 Chronicity: acute Congestive heart failure (CHF) I50.9 (4) Pulmonary edema Chronicity: acute Qualified Code(s): J81.0 - Acute pulmonary edema
[2024-04-19 14:57] VITALS: BP 106/71; RESP 16; TEMP 98.1; O2SAT 94
[2024-04-19 16:17] VITALS: PULSE 94
--- NOTE | 2024-04-19 17:28 | Discharge Summary ---
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 During this time period he has continued to lose weight. He has lost about 40 pounds over the last 12+ months. Denies fevers/chills. Slight cough at times only. No URI symptoms. No abd pain, nausea, emesis, melena stool, BRBPR. His last Opdivo treatment at the [facility] was 03/16/25. He was scheduled for a treatment today but was sent into the ER due to abnormal blood work as well as his symptoms noted above. He follows with Dr Trista Grijalva for his cancer needs as well as Dr Alfredo Timmons for his kidney needs. Dr Timmons about 1 week ago asked Mr Guadalupe to increase his daily prednisone from 10mg/day to 20mg/day. This did not improve his fatigue or appetite. He mentions that at times of previous volume overload he typically has significant peripheral edema. At this time he only has baseline chronic mild edema of the right leg. Admission Exam Per Admitting Provider gen - very pleasant, no distress; morbidly obese eyes - PERRL HENT - MM slightly dry, no lesions neck - due to neck size unable to visualize JVD heart - tachy, irregularly irregular, s1 s2, no murmur lungs - mild/faint b/l basilar rales, no wheeze, no increased work of breathing abd - soft NT ND BS+; no HSM ext - right leg with <1+ edema, left leg trace edema vascular - pulses feet 2+ b/l psych - a/o x 3 musculo - no joint effusions neuro - strength 5/5 x 4 exts, DTRs 2+ b/l, mild fine tremor of arms noted Principal Diagnosis CHF, Renal failure Discharge Exam Constitutional: WD/WN, vitals as above Eyes: PERRL, conjunctivae normal, anicteric sclerae Respiratory: normal respiratory effort, lungs clear to auscultation Gastrointestinal (Abdomen): normal bowel sounds, soft, nontender, no hepatosplenomegaly Psychiatric: A+Ox3, euthymic affect Discharge Data Allergies Allergy/AdvReac Type Severity Reaction Status Date / Time No Known Allergies Allergy Verified 03/30/24 13:16 Consultations 04/13/24 14:02 ED Decision to Admit Stat 04/14/24 07:00 Consult Nephrology Routine Consult Oncology Routine 04/14/24 10:13 Consult Vascular Surgery Routine 04/14/24 12:00 Consult Podiatry Routine 04/15/24 09:08 Consult Cardiology Routine Procedures Performed Operation Date: 04/16/24 09:20 Actual Procedures p Insertion of Perm Cath,Right Internal Jugular Approach,Ultrasound Localization of Right Internal Jugular Vein, Fluoroscopy for Positioning, Moderate Sedation [id number](Right) - Niko Norton MD Ordered Studies 04/13/24 15:00 CT abd pelvis wo con Stat CT chest diagnostic wo con Stat 04/14/24 16:18 US hemodialysis fistula Routine 04/16/24 08:21 EV cvc insrt tunnel wo 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 Routine US EV guide vascular access Routine Hospital Course (1) Acute hypoxic respiratory failure: (2) Chronic kidney disease, stage IV (severe): (3) Atrial fibrillation: (4) Autoimmune hepatitis treated with steroids: (5) Microcytic anemia: (6) Thrombocytopenia: (7) Non-pressure chronic ulcer of right heel and midfoot with fat layer exposed: (8) Metastatic renal cell carcinoma: (9) Chronic diastolic CHF (congestive heart failure): (10) Hyperglycemia: Total Time Total Time Spent Total Time Spent (In Minutes): see attending documentation Discharge Plan Discharge Items Patient Disposition: Home - Self-Care Reason For Visit: ACUTE HYPOXIC RESP FAILURE, ANEMIA/THROMBOCYTOPENI Discharge Diagnosis: CHF exacerbation, thrombocytopenia Activity: Resume your previous activity Activity Comment: as tolerated Non-emergency contact: Primary Care Provider and Oncologist Call non-emergency contact if: you have any medication questions and your symptoms worsen Follow-up/Referrals: Veronica Tucker MD [Primary Care Provider] - Diet: Dialysis Renal Addtl Attending Provider Instructions: You were admitted to the hospital for difficulty breathing. You were treated with dialysis which will continue after your discharge. Your platelets were also low and you were treated with steroids. You will continue steroids after discharge. A discharge summary will be sent to your primary care physician to ensure continuity of care. Please bring this discharge summary with you to your next office appointment so that your provider can review it at that time. Follow-up appointments: Make a follow-up appointment with your PCP within the next week. It is very important that you follow up with them shortly after discharge from the hospital. Keep all your follow-up appointments as already scheduled. If you cannot make an appointment, notify your provider. Medications: Your medication list has been reviewed and reconciled upon discharge to ensure accuracy and continuity of care. An updated list of all your medications is included with your hospital discharge paperwork. Please review this list closely, and make note of any changes. We sent a new medication called prednisone to your pharmacy. Take prednisone as directed on the label when you picker/puller your prescription. If you have any issues filling these prescriptions, please call [phone] and ask to leave a message for Dr. Pernell Burns. Take your medications as instructed; do not skip a dose of your medicines. Make sure all of your doctors know every medicine you are taking (including yzei-rwv-vfezowu medicines, vitamins, and supplements). Call your primary care provider before taking any new medicines (including jmuw-wbe-ownmstb medicines, vitamins, and supplements), because some of these may interact with your current medications, or may make your symptoms worse. Tell your primary care provider if you cannot afford your medications. CONTACT YOUR PRIMARY CARE PROVIDER if you experience any of the following: Increased shortness of breath Nausea, abdominal pain Fluttering sensation in your chest Difficulty following your treatment plan, or difficulty taking medications CALL 911 OR GO TO THE EMERGENCY DEPARTMENT if you experience any of the following: Sudden, severe abdominal pain or nausea/vomiting Severe chest pain, or chest pain that radiates (moves) to your jaw or arm Sudden, severe shortness of breath or difficulty breathing Thank you for allowing us to participate in your care. Pending Studies at Discharge: No Stand-Alone Forms: [facility] Medications and DC Order Prescriptions: New prednisone 10 mg tablet See Taper PO DIRECTED Qty: 196 0RF Taper: Taper, Blank 70 mg DAILY for 7 Days 60 mg DAILY for 7 Days 50 mg DAILY for 7 Days 40 mg DAILY for 7 Days 30 mg DAILY for 7 Days 20 mg DAILY for 7 Days 10 mg DAILY for 7 Days Rx Instructions: See Taper orally TAPER: 70 mg daily for 7 Days; 60 mg daily for 7 Days; 50 mg daily for 7 Days; 40 mg daily for 7 Days; 30 mg daily for 7 Days; 20 mg daily for 7 Days; 10 mg daily for 7 Days Renal Caps 1 mg Capsule 1 cap PO QAM Qty: 30 0RF metoprolol succinate 50 mg Tablet Extended Release 24 Hr 100 mg PO QPM Qty: 60 0RF metoprolol succinate 25 mg Tablet Extended Release 24 Hr 75 mg PO QAM Qty: 90 0RF diltiazem HCl 30 mg Tablet 30 mg PO Q6H Qty: 120 0RF Continued apixaban 5 mg tablet 5 mg PO BID Qty: 60 multivitamin tablet 1 tab PO DAILY cholecalciferol (vitamin D3) 50 mcg (2,000 unit) tablet 2,000 unit PO DAILY Qty: 30 levothyroxine 200 mcg tablet 200 mcg PO QAM ferrous sulfate [iron] 325 mg (65 mg iron) Tablet 325 mg PO DAILY amoxicillin 500 mg capsule 2,000 mg PO DIRECTED PRN (Reason: 1 HR PRIOR TO DENTAL APPT.) betamethasone, augmented 0.05 % cream 1 applic TOPICAL BID PRN (Reason: Skin Irritation) pantoprazole 40 mg tablet,delayed release (DR/EC) 40 mg PO QAM Discontinued bumetanide 1 mg tablet 2 mg PO .COMPLEX Qty: 30 3RF Hold Instructions: Home Medication placed on hold at Doctor's office Rx Instructions: 1 mg every afternoon PO, in addition to 2 mg PO QAM. If patient gains 3 lbs or more increase to 2mg PO BID, if patient weight drops below 350lbs decrease to 2mg PO daily. bumetanide 1 mg tablet 1 mg PO QAM Qty: 30 3RF Rx Instructions: 1mg PO QAM. Additional 1 mg in the afternoon as needed. prednisone 10 mg tablet 10 mg PO DAILY metoprolol tartrate 50 mg tablet 50 mg PO UD Rx Instructions: original: 50 mg po bid. Fill history 01/25 for 90 day supply #270 Discharge Orders: Discharge Order (Routine); Ordered 04/19/24 Ordered By: Pernell Burns Admission Data Admit Date/Time: 04/13/24 15:18 Attending Provider: Dany Locke Admit Provider: Shivam Thurston Primary Care Provider: Veronica Tucker Other Providers: Shivam Thurston; Rosas Soto; Trista Grijalva; Niko Norton; Iam Mchugh; Seamus Benoit; Satish German; Lazarus Huddleston; Sundeep Bull; Estevan Kyle; Selvin Duncan Jr; Terrance Marei; Michelle Lopez; Kyra Uriarte; Lc Tolentino; Lc Mitchell; Jhon Aj; Dilma Tavares; Collin Jackson; Kay Bull; Collin Pérez; Ernie Giradr; [facility] Other Interventions: Discharge Summary Assessment (RN) Last Done: 04/19/24 16:13 Supervising Physician Co-Signing Physician Notes I personally examined the patient and verified all pichardo points of history and exam, discussed case, and agree with decision making with Dr Burns feeling better and would like to go home. Vitals noted, in general he is awake and alert pleasant no distress. HEENT normocephalic atraumatic mucous membranes moist. Breathing unlabored no accessory muscle use good effort. Skin without rashes pallor or icterus. Acute resp failure d/t HFpEF d/t RVR - Improved and on room air after dialysis ESRD - Per nephro. needs midodrin prior to HD. set up for outpatient dialysis Permanent A fib, here with RVR - Cardio - added diltiazem in attempt to d/c IV amiodarone. continue metoprolol. safe/stable for home. May need gentle titration of rate control after discharge Metastatic renal cell ca/thrombocytopenia - oncology following. IV steroids for concern of autoimmune etiology of thrombocytopenia. platelet count better. outpatient steroids per oncology Autoimmune hepatitis - chronic steroids. Foot ulcer - wound care. Heme positive stool on admission - h/h stable. Apixaban on hold d/t thrombocytopenia. stable for home. Otherwise as above. Resident Activity Tracking Resident Involvement: Resident Care Provided Care Provided: Adult [facility] Medicine
--- NOTE | 2024-04-19 18:36 | Billing Data ---
Date of Service April 19, 2024 Coding Level of Care Code 60216 IN/OBS DISCH 30 MIN/LESS
== END 2024-04-19 18:16 | disposition home or self-care (01) | DRG 291 ==
LOC: ED 11:41 → 4W 15:18 → SUATTDRO 15:18 → 4W 18:18
DX: C79.9 Secondary malignant neoplasm of unspecified site; L97.512 Non-pressure chronic ulcer of other part of right foot with fat layer exposed; Z87.19 Personal history of other diseases of the digestive system; K92.1 Melena; Z79.899 Other long term (current) drug therapy; E03.9 Hypothyroidism, unspecified; N17.9 Acute kidney failure, unspecified; Z79.52 Long term (current) use of systemic steroids; E11.621 Type 2 diabetes mellitus with foot ulcer; I50.33 Acute on chronic diastolic (congestive) heart failure; E87.1 Hypo-osmolality and hyponatremia; Z95.2 Presence of prosthetic heart valve; D69.6 Thrombocytopenia, unspecified; N18.6 End stage renal disease; I24.89 Other forms of acute ischemic heart disease; E87.5 Hyperkalemia; I48.21 Permanent atrial fibrillation; J96.01 Acute respiratory failure with hypoxia; E11.22 Type 2 diabetes mellitus with diabetic chronic kidney disease; K75.4 Autoimmune hepatitis; Z99.89 Dependence on other enabling machines and devices; Z90.5 Acquired absence of kidney; I13.2 Hypertensive heart and chronic kidney disease with heart failure and with stage 5 chronic kidney disease, or end stage renal disease; Z79.890 Hormone replacement therapy; Z79.01 Long term (current) use of anticoagulants; E66.01 Morbid (severe) obesity due to excess calories; C64.2 Malignant neoplasm of left kidney, except renal pelvis; Z68.41 Body mass index [BMI] 40.0-44.9, adult; I34.0 Nonrheumatic mitral (valve) insufficiency; G47.33 Obstructive sleep apnea (adult) (pediatric); E78.00 Pure hypercholesterolemia, unspecified; D63.1 Anemia in chronic kidney disease; D50.9 Iron deficiency anemia, unspecified

== ENCOUNTER 2024-04-28 14:16 | Inpatient (IN) ==
--- NOTE | 2024-04-28 14:30 | ED Triage Note ---
Date of Service April 28, 2024 Provider in Triage Author: Julio Uriostegui History of Present Illness This patient was briefly evaluated while in triage. An abbreviated physical exam was performed. This patient is a 68-year-old Male who presents to the ED for evaluation weakness in legs on immunotherapy for renal cell carcinoma (last treatment 03/16) PT came to home today, he didn't feel well enough to workout was due for dialysis today, but didn't feel well enough to go Physical Exam GENERAL: NAD in wheelchair CARDIOVASCULAR: RRR RESPIRATORY: CTA Initial orders for labs and / or imaging were placed and patient was placed in the waiting area until a bed is available. Please see further documentation for the full ED course.
--- NOTE | 2024-04-28 15:52 | Electrocardiogram Report ---
Test Reason : Blood Pressure : */* mmHG Vent. Rate : 112 BPM Atrial Rate : * BPM P-R Int : * ms QRS Dur : 98 ms QT Int : 330 ms P-R-T Axes : * 0 116 degrees QTcB Int : 450 ms Atrial fibrillation with rapid ventricular response Voltage criteria for left ventricular hypertrophy Minor Nonspecific T wave abnormality Abnormal ECG When compared with ECG of 13-Apr-2024 11:56, No significant change was found Confirmed by Satish German ([id number]) on 04/28/2024 3:52:04 PM Referred By: Confirmed By: Satish German
--- NOTE | 2024-04-28 16:28 | XRay Report ---
EXAM: Radiograph of the Chest 1 View INDICATION: Weakness. TECHNIQUE: Frontal view of the chest. COMPARISON: 04/13/2024 FINDINGS: Lungs and pleural spaces: Increased bilateral pleural effusions and basilar airspace consolidation. There is vascular congestion with improved pulmonary edema. No pneumothorax. Heart: Stable large cardiac shadow. Mediastinum: Normal contour. Bones/joints: No fracture, erosion or dislocation. Soft tissues: No abnormality noted. No radiopaque foreign body noted. Tubes, lines and devices: Right internal jugular central venous catheter tip in the mid superior vena cava. Upper abdomen: No abnormality noted. IMPRESSION: 1. There is improved pulmonary edema. There are new bilateral basilar infiltrates and small pleural effusions which may reflect compressive atelectasis and/or mucous plugging. 2. Lines and tubes as above. ACT 112: Negative or not required by law. Electronically signed by Shazia David 04-28-2024 4:28 PM
[2024-04-28 17:48] LABS: Base Excess VBG -2.5 mEq/L; HCO3 VBG 23 mmol/L; Oxygen Saturation VBG 77.1 %; PCO2 VBG 39 mmHg (38-50); PO2 VBG 47 mmHg; pH VBG 7.37 (7.36-7.41)
[2024-04-28 18:00] LABS: iSTAT Creatinine 6.3 mg/dl (0.6-1.3); iSTAT Hemoglobin 9.2 g/dl (14.0-18.0); iSTAT Ionized Calcium 1.12 mmol/l (1.12-1.32); iSTAT Potassium 4.5 mmol/L (3.3-5.0)
[2024-04-28 18:17] LABS: Albumin Level 2.7 gm/dl (3.4-5.0); BUN Creatinine Ratio 14.8 (10-20); Calcium 9.2 mg/dl (8.6-10.3); Creatinine Clr Calc Pharmacy 19.8 ml/min; Globulin 2.7 gm/dl (2.5-4.0); Magnesium 2.3 mg/dl (1.7-2.4); Potassium 4.7 mmol/L (3.5-5.1); Total Protein 5.4 gm/dl (6.0-8.3); Troponin I High Sensitivity 103.3 pg/ml (0-20)
[2024-04-28] MEDS: CEFEPIME 2000MG 2,000 MG/20 ML SYR IV STA (18:27)
--- NOTE | 2024-04-28 18:27 | CT Scan Report ---
EXAMINATION: Head CT without CLINICAL HISTORY: Weakness PRIORS: None TECHNIQUE: Contiguous axial images were obtained through the head without the use of intravenous contrast. Sagittal and coronal reformations are supplied. FINDINGS: Motion artifact degrades image quality. Moderate parenchymal volume loss noted. Quiñones-white differentiation is preserved. No edema or midline shift. No intra-axial or extra-axial hemorrhage. Ventricles are normal in size and configuration. Brainstem and cerebellum have a normal appearance. Calvarium unremarkable. Paranasal sinuses and mastoid air cells are well-pneumatized. Globes are intact. No retrobulbar abnormality. IMPRESSION: Moderate parenchymal volume loss with no CT evidence of an acute intracranial abnormality. Electronically signed by Indy uSn 04-28-2024 6:25 PM
[2024-04-28 18:34] LABS: Hematocrit (blood only) 30.6 % (42.0-52.0); Hemoglobin 8.9 g/dl (14.0-18.0); Mean Corpuscular Hemoglobin 23.7 pg (25.0-34.0); Mean Corpuscular Hgb Conc 29.1 g/dL (32.0-36.0); Mean Corpuscular Volume 81.6 fL (80.0-100.0); Mean Platelet Volume 11.2 fL (9.4-12.4); Nucleated RBC # (auto) 0.28 K/uL (0.00-0.12); Nucleated RBC % (auto) 2.5 %; Platelet Count 76 K/uL (130-400); RDW Standard Deviation 58.3 fL (36.4-46.3); Red Blood Count 3.75 M/uL (4.70-6.10); White Blood Count 11.37 K/ul (4.8-10.8)
[2024-04-28 18:35] LABS: Anisocytosis Present; Basophils # (auto) 0.01 K/uL (0.00-0.20); Basophils % (auto) 0.1 %; Eosinophils # (auto) 0.01 K/uL (0.00-0.50); Eosinophils % (auto) 0.1 %; Immature Granulocytes # (auto) 0.37 K/uL (0.01-0.20); Immature Granulocytes % (auto) 3.3 %; Lymphocytes % (auto) 7.9 %; Monocytes # (auto) 0.32 K/uL (0.11-0.59); Monocytes % (auto) 2.8 %; Neutrophils # (auto) 9.76 K/uL (1.40-6.50); Neutrophils % (auto) 85.8 %; Polychromasia 2+
[2024-04-28 18:37] LABS: INR 1.1 (0.9-1.1); Partial Thromboplastin Ratio 1.2; Partial Thromboplastin Time 33 Seconds (21-31); Prothrombin Time 11.4 Seconds (9.0-12.0)
[2024-04-28 18:50] LABS: Adenovirus PCR Not Detected (NotDetected); Bordetella parapertussis PCR Not Detected (NotDetected); Bordetella pertussis PCR Not Detected (NotDetected); Chlamydia pneumoniae PCR Not Detected (NotDetected); Coronavirus 229E PCR Not Detected (NotDetected); Coronavirus CoV-2 (COVID19)PCR Not Detected (NotDetected); Coronavirus HKU1 PCR Not Detected (NotDetected); Coronavirus NL63 PCR Not Detected (NotDetected); Coronavirus OC43PCR Not Detected (NotDetected); Human Metapneumovirus PCR Not Detected (NotDetected); Influenza A PCR Not Detected (NotDetected); Influenza B PCR Not Detected (NotDetected); Mycoplasma pneumoniae PCR Not Detected (NotDetected); Parainfluenza Virus 1 PCR Not Detected (NotDetected); Parainfluenza Virus 2 PCR Not Detected (NotDetected); Parainfluenza Virus 3 PCR Not Detected (NotDetected); Parainfluenza Virus 4 PCR Not Detected (NotDetected); Respiratory Syncytial VirusPCR Not Detected (NotDetected); Rhinovirus/Enterovirus PCR DETECTED (NotDetected)
[2024-04-28 19:45] LABS: Appearance Urine Clear (Clear); Bacteria Urine Automated None Seen (None Seen); Bilirubin Urine 1+ (Negative); Blood Urine Negative (Negative); Color Urine Dark Yellow; Epithelial Cell Urine Auto 0-2 /hpf (0-2); Glucose Urine UA Trace (Negative); Ketones Urine Trace (Negative); Leukocyte Esterase Urine Negative (Negative); Nitrite Urine Negative (Negative); Protein Urine 3+ (Negative); RBC Urine Automated 0-2 /hpf (0-2); Specific Gravity Urine 1.018 (1.000-1.030); Urobilinogen Urine Negative (Negative); WBC Urine Automated 0-5 /hpf (0-5)
--- NOTE | 2024-04-28 20:35 | History & Physical Report ---
Date of Service April 28, 2024 Assessment & Plan (1) Pneumonia: (2) Rhinovirus: (3) MARILEE (acute kidney injury): (4) Atrial fibrillation with rapid ventricular response: (5) Elevated troponin: Plan 68-year-old gentleman PMHx ESRD on dialysis (//), CHF, s/p TAVR, A-fib, RCC, HTN, hypercholesterolemia, hypothyroidism, and SARHA presenting to ED for BLE weakness starting on the day of arrival. Patient has renal cell carcinoma and recently started treatment and dialysis 2 weeks prior to arrival. Evidence of leukocytosis (11.37), anemia (H&H 8.9/9.2, microcytic/hypochromic pattern), CMP with anion gap 13, BUN 82, creatinine 5.54, lactate 2.6 down trended to 2.3, elevated LFTs (bilirubin 2, alkaline phosphatase 167), troponin 103.3 down trended to 92.3, protein 5.4, BUN 2.7, Pro-Long 1.35. UA negative for bacteria, BioFire positive for entero-/rhinovirus. CXR with pulmonary edema and new bilateral basilar infiltrates with small pleural effusion. Head CT without acute findings. EKG at arrival A-fib with RVR (112 bpm). Given 1 dose cefepime in ED. #PNA/Weakness Weakness starting day of arrival; no h/o falls, no associated symptoms of dizziness, syncope, chest pain. Evidence of leukocytosis, elevated procalcitonin, CXR findings, and BioFire positive for entero-/rhinovirus, suspect that the weakness is secondary to pulmonary source, as well as concurrent acute worsening of renal function; however, patient not meeting criteria for sepsis at time of admission. Currently stable and nontoxic- appearing. - CBC w/ leukocytosis (on chronic steroids), procal 1.35, lactate down trended to 2.3, CMP with evidence of MARILEE- suspect that weakness impacted by PNA - PT/OT consults placed, fall precautions - Pending MRSA - O2 via NC to maintain >92%; No O2 at home; Flutter valve + incentive spirometer - Azithro 500 mg x 3 days #MARILEE/RCC/ESRD on HD Baseline creatinine (fall 2023) 3-3.5; with solitary L kidney; hemodialysis on //, did not receive HD on day of arrival as initially scheduled. Follows with Dr. Grijalva at cancer [facility] for RCC, on Opdivo. Midodrine for hypotension. - Cr 5.54, BUN 82; UA without evidence of infection- BMP am - No fluids given in ED; Does have history of heart failure + appearing to have some volume overload at time of admission- At this time will NOT add fluids for MARILEE as to not worsen BLE edema but will monitor strict Is+Os - Holding bumex at admission given MARILEE - Nephrology consulted given HD status, pt due for HD; also due for fistula to be placed 04/29/2023 but will need rescheduled, no urine output- appreciate input + recs #A-fib with RVR/Elevated troponin H/o Afib, on Eliquis. Rate 112 bpm at arrival to ED, currently 90s to 100s. No chest pain or SOB. H/o ESRD. 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 Initially addressed on most recent hospital stay end of March 2023, but has increased since then. - No abdominal pain or GI symptoms, some tenderness to palpation of RUQ. - LFTs total bilirubin 2.0, alk phos 167 - Steroid course started- 04/28 started on 60 mg daily, continue for next 7 Days #Anemia- H/o microcytic anemia per last hospital stay, started on iron daily; H/H at admission 8.9/30.6; CBC a.m., consider transfusion if hemoglobin <7 #Hypothyroidism- Levothyroxine #Chronic diastolic CHF- Bumetanide- HOLD #GERD- Pantoprazole #SARAH- CPAP Dispo: Admit VTE prophylaxis: On Eliquis This document was dictated utilizing [employer]. Please excuse any grammatical errors that may be secondary to use of this software. Admission and Anticipated Discharge Date Admission Date: 04/28/2024 History of Present Illness Chief Complaint: BLE Weakness Primary Care Provider: Veronica Tucker MD 68-year-old gentleman PMHx ESRD on dialysis (M/W/F), CHF, s/p TAVR, A-fib, RCC, HTN, hypercholesterolemia, hypothyroidism, and SARAH presenting to ED for BLE weakness starting on the day of arrival. Patient has renal cell carcinoma on treatment and dialysis. Was going to go to dialysis on the day of arrival, but the weakness in his legs was concerning to him so he came to the ED. helps provide history. States that on the day of arrival she was helping the patient moved from his chair to standing and he was only able to stand for a few seconds and then felt weak and had to sit back down. This occurred on 2 occasions the day of arrival. Instead of going to dialysis, the patient's called the ambulance and brought him to the ED. Additionally, the patient has been having coughing over the past week, producing a clear and sometimes blood-tinged sputum. States that he becomes more SOB with laying flat, so he often sleeps upright. Has had swelling in BLE and feels that overall it has improved but on the day of arrival his legs feel larger than normal as he missed his HD the same day. He denies fever/chills, chest pain, palpitations, abdominal pain, N/V/D/C, numbness/tingling, or falls. ED workup reveals leukocytosis 11.37, H&H 8.9/9.2 (microcytic, hypochromic pattern), WNL VBG's, CMP with anion gap of 13, BUN 82, creatinine 5.54, and lactate 2.6 -> 2.3 on repeat. Total bilirubin is 2.0, alkaline phosphatase is 167, troponin went from 103.3-> 92.3. Protein 5.4, albumin 2.7, and Pro-Long 1.35. UA is negative for bacteria, and bio fire is positive for entero-/rhinovirus. CXR reveals improved pulmonary edema but new bilateral basilar infiltrates and a small pleural effusion. Head CT with moderate parenchymal volume loss but no acute findings. EKG at time of arrival was A-fib with RVR (112 bpm). Patient was started on cefepime in ED. Please see Dr. Tucker's attestation for adjustments/additions to treatment plan. Allergies Allergy/AdvReac Type Severity Reaction Status Date / Time No Known Allergies Allergy Verified 04/28/24 19:55 Home Medications Medication Instructions Recorded Confirmed Type multivitamin 1 tab PO DAILY 11/11/18 04/28/24 History cholecalciferol (vitamin D3) 50 2,000 unit PO DAILY #30 tabs 10/15/22 04/28/24 History mcg (2,000 unit) tablet amoxicillin 500 mg capsule 2,000 mg PO DIRECTED PRN 1 HR 07/07/23 04/28/24 History PRIOR TO DENTAL APPT. betamethasone, augmented 0.05 % 1 applic topical BID PRN Skin 07/07/23 04/28/24 History topical cream Irritation levothyroxine 200 mcg tablet 200 mcg PO QAM 08/21/23 04/28/24 History ferrous sulfate 325 mg (65 mg 325 mg PO DAILY 11/05/23 04/28/24 History iron) tablet (iron) pantoprazole 40 mg tablet,delayed 40 mg PO QAM 11/17/23 04/28/24 History release apixaban 2.5 mg tablet (Eliquis) 2.5 mg PO BID #60 tabs 04/19/24 04/28/24 Rx diltiazem HCl 30 mg tablet 30 mg PO Q6H #120 tabs 04/19/24 04/28/24 Rx metoprolol succinate 25 mg 75 mg (3 x 25 mg) PO QAM #90 tabs 04/19/24 04/28/24 Rx tablet,extended release 24 hr metoprolol succinate 50 mg 100 mg (2 x 50 mg) PO QPM #60 tabs 04/19/24 04/28/24 Rx tablet,extended release 24 hr prednisone 10 mg tablet See Taper PO DIRECTED #196 tabs 04/19/24 04/28/24 Rx vitamin B complex and vitamin C 1 cap PO QAM #30 caps 04/19/24 04/28/24 Rx no.20-folic acid 1 mg capsule (Renal Caps) midodrine 10 mg tablet 10 mg PO TID #30 tabs 04/27/24 04/28/24 Rx bumetanide 2 mg tablet 2 mg PO DAILY 04/28/24 04/28/24 History Past Med/Surg History Problem List (Updated 04/28/24 @ 23:29 by Tereso Arevalo MD) Lactic acidemia (Acute) Weakness (Acute) Rhinovirus (Acute) Pneumonia (Acute) Elevated troponin (Acute) Weakness Hyperglycemia End stage renal disease on dialysis (Acute) Mitral regurgitation Hyperkalemia Non-pressure chronic ulcer of right heel and midfoot with fat layer exposed Anemia Congestive heart failure (CHF) End stage chronic kidney disease S/P TAVR (transcatheter aortic valve replacement) Morbid obesity with BMI of 40.0-44.9, adult Autoimmune hepatitis treated with steroids MARILEE (acute kidney injury) GIB (gastrointestinal bleeding) (Acute) Thrombocytopenia (Acute) Atrial fibrillation with rapid ventricular response (Acute) Chronic diastolic CHF (congestive heart failure) (Acute) Chronic kidney disease, stage IV (severe) Metastatic renal cell carcinoma Abnormal LFTs Thrombocytopenia Microcytic anemia Heme positive stool Acute hypoxic respiratory failure (Acute) Hypoxia (Acute) Elevated troponin I level (Acute) Pulmonary edema (Acute) CKD (chronic kidney disease) (Acute) Immunotherapy Medical History Atrial fibrillation SARAH (obstructive sleep apnea) Hypercholesterolemia Hypertension Hypothyroidism Acute GI bleeding 2nd duodenal ulcer - 2023 Coagulopathy Heart failure with preserved ejection fraction Renal cell carcinoma stage 4 CKD (chronic kidney disease) stage 4, GFR 15-29 ml/min Surgical History S/p nephrectomy right Family History Mother Cancer colon ca; age 76 Father CHF (congestive heart failure) age 78 Social History Smoking Status: Never smoker Do You Dip or Chew Tobacco: No; Hx Alcohol Use: No Hx Substance Use: No Preferred Language: Ukrainian Communication Ability: Effective Wire Spiral Binder Required: No Beliefs That Will Affect Care: None marital status: Current Living Situation: Spouse Current Living Situation Comment: live in [facility] near [facility] current occupational status: retired 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 [facility] How many Children do You have: 2 Feels Safe at Home: Yes Assistive Devices: CPAP Review of Systems Review of Systems: All systems reviewed & are unremarkable except as noted in Subjective Physical Exam Physical Exam: General: No acute distress, obese Skin: Warm and dry; diffuse bruising throughout body; port R chest, no erythema/edema/drainage Head: Normocephalic, atraumatic Eyes: PERRL, conjunctivae clear, sclera non-icteric ENT: External ear and ear canal without swelling; nose atraumatic; good dentition, tongue normal appearance, pharynx normal Neck: Supple, no LAD; no JVD Cardio: Tachycardia (105), irregularly irregular rhythm, no M/G/R, S1 and S2 normal Resp: No respiratory distress, decreased breath sounds bilaterally, no clear adventitious breath sounds Abdomen: Soft, symmetric, overall nontender, minimal tenderness RUQ; No masses or hepatosplenomegaly; Bowel sounds normoactive MSK: No deformities, full ROM throughout; pulses palpable and equal; 3+ pitting edema. Neuro: Awake, alert; CN grossly intact Psych: Appropriate mood and affect; good judgement and insight. present in room at time of visit. Results & Data Results & Data Vital Signs (Past 12 Hours) Vital Signs Temp Pulse Pulse Resp BP BP Pulse Ox 04/28/24 19:00 100 H 20 124/90 92 04/28/24 17:56 103 H 22 114/84 92 04/28/24 17:51 99 H 21 114/84 91 04/28/24 17:44 104 H 20 92 04/28/24 17:44 104 H 20 98/77 L 92 04/28/24 17:44 93 04/28/24 17:35 111 H 04/28/24 14:27 36.5 C 110 H 20 125/85 92 O2 Del Method 04/28/24 19:00 Room Air 04/28/24 17:56 Room Air 04/28/24 17:51 04/28/24 17:44 Room Air 04/28/24 17:44 Room Air 04/28/24 17:44 Room Air 04/28/24 17:35 04/28/24 14:27 Room Air Laboratory Results 04/28/24 17:33 Aerobic Blood Culture - Pending Blood Anaerobic Blood Culture - Pending 04/28/24 17:33 Aerobic Blood Culture - Pending Blood Anaerobic Blood Culture - Pending 04/28/24 04/28/24 04/28/24 19:18 18:52 17:48 WBC RBC Hgb POC Hgb 9.2 L Hct POC Hct 27 L MCV MCH MCHC RDW Std Deviation RDW Coeff of Nick Plt Count MPV Immature Gran % (Auto) Neut % (Auto) Lymph % (Auto) [place] % (Auto) Eos % (Auto) Baso % (Auto) Neut # (Auto) Lymph # (Auto) [place] # (Auto) Eos # (Auto) Baso # (Auto) Immature Gran # (Auto) Absolute Nucleated RBC Nucleated RBC % (auto) Polychromasia Anisocytosis PT INR APTT PTT Ratio VBG pH VBG pCO2 VBG pO2 VBG HCO3 VBG O2 Saturation VBG Base Excess POC Sodium 134 L Sodium POC Potassium 4.5 Potassium POC Chloride 99 L Chloride Carbon Dioxide POC Total CO2 24 Anion Gap POC Anion Gap 16.0 POC BUN 74 H BUN Creatinine POC Creatinine 6.3 H* Est Cr Clr Drug Dosing eGFR BUN/Creatinine Ratio Glucose POC Glucose (other) 185 H Lactate 2.3 H* Calcium POC Ioniz Calcium Darlene 1.12 Magnesium Total Bilirubin AST ALT Alkaline Phosphatase Troponin I High Sens 92.3 H* D Total Protein Albumin Globulin Albumin/Globulin Ratio Procalcitonin Urine Color Dark Yellow Urine Appearance Clear Urine pH 5.0 Ur Specific [place] 1.018 Urine Protein 3+ H Urine Glucose (UA) Trace H Urine Ketones Trace H Urine Blood Negative Urine Nitrite Negative Urine Bilirubin 1+ H Urine Urobilinogen Negative Ur Leukocyte Esterase Negative Urine WBC (Auto) 0-5 Urine RBC (Auto) 0-2 U Hyaline Cast (Auto) 6-10 H U Epithel Cells (Auto) 0-2 Urine Bacteria (Auto) None Seen Adenovirus (PCR) B. pertussis DNA (PCR) B.parapertussis DNA PCR C. pneumoniae DNA (PCR) Coronavirus OC43 (PCR) Coronavirus HKU1 (PCR) Coronavirus 229E (PCR) SARS-CoV-2 (PCR) Coronavirus NL63 (PCR) Human Metapneumovir PCR Influenza Type A (PCR) Influenza Type B (PCR) M. pneumoniae (PCR) Parainfluenza 1 (PCR) Parainfluenza 2 (PCR) Parainfluenza 3 (PCR) Parainfluenza 4 (PCR) RSV (PCR) Entero/Rhino (PCR) 04/28/24 04/28/24 17:38 17:33 WBC 11.37 H RBC 3.75 L Hgb 8.9 L POC Hgb Hct 30.6 L POC Hct MCV 81.6 MCH 23.7 L MCHC 29.1 L RDW Std Deviation 58.3 H RDW Coeff of Nick 21.0 H Plt Count 76 L MPV 11.2 Immature Gran % (Auto) 3.3 Neut % (Auto) 85.8 Lymph % (Auto) 7.9 [place] % (Auto) 2.8 Eos % (Auto) 0.1 Baso % (Auto) 0.1 Neut # (Auto) 9.76 H Lymph # (Auto) 0.90 L [place] # (Auto) 0.32 Eos # (Auto) 0.01 Baso # (Auto) 0.01 Immature Gran # (Auto) 0.37 H Absolute Nucleated RBC 0.28 H Nucleated RBC % (auto) 2.5 Polychromasia 2+ Anisocytosis Present PT 11.4 INR 1.1 APTT 33 H PTT Ratio 1.2 VBG pH 7.37 VBG pCO2 39 VBG pO2 47 VBG HCO3 23 VBG O2 Saturation 77.1 VBG Base Excess -2.5 POC Sodium Sodium 136 POC Potassium Potassium 4.7 POC Chloride Chloride 98 Carbon Dioxide 25 POC Total CO2 Anion Gap 13 H POC Anion Gap POC BUN BUN 82 H Creatinine 5.54 H* POC Creatinine Est Cr Clr Drug Dosing 19.8 eGFR 10.38 BUN/Creatinine Ratio 14.8 Glucose 187 H POC Glucose (other) Lactate 2.6 H* Calcium 9.2 POC Ioniz Calcium Darlene Magnesium 2.3 Total Bilirubin 2.0 H AST 32 ALT 33 Alkaline Phosphatase 167 H Troponin I High Sens 103.3 H* Total Protein 5.4 L Albumin 2.7 L Globulin 2.7 Albumin/Globulin Ratio 1.0 Procalcitonin 1.35 H Urine Color Urine Appearance Urine pH Ur Specific [place] Urine Protein Urine Glucose (UA) Urine Ketones Urine Blood Urine Nitrite Urine Bilirubin Urine Urobilinogen Ur Leukocyte Esterase Urine WBC (Auto) Urine RBC (Auto) U Hyaline Cast (Auto) U Epithel Cells (Auto) Urine Bacteria (Auto) Adenovirus (PCR) Not Detected B. pertussis DNA (PCR) Not Detected B.parapertussis DNA PCR Not Detected C. pneumoniae DNA (PCR) Not Detected Coronavirus OC43 (PCR) Not Detected Coronavirus HKU1 (PCR) Not Detected Coronavirus 229E (PCR) Not Detected SARS-CoV-2 (PCR) Not Detected Coronavirus NL63 (PCR) Not Detected Human Metapneumovir PCR Not Detected Influenza Type A (PCR) Not Detected Influenza Type B (PCR) Not Detected M. pneumoniae (PCR) Not Detected Parainfluenza 1 (PCR) Not Detected Parainfluenza 2 (PCR) Not Detected Parainfluenza 3 (PCR) Not Detected Parainfluenza 4 (PCR) Not Detected RSV (PCR) Not Detected Entero/Rhino (PCR) DETECTED A Diagnostic Findings Chest X-Ray 04/28/24 14:29 EXAM: Radiograph of the Chest 1 View INDICATION: Weakness. TECHNIQUE: Frontal view of the chest. COMPARISON: 04/13/2024 FINDINGS: Lungs and pleural spaces: Increased bilateral pleural effusions and basilar airspace consolidation. There is vascular congestion with improved pulmonary edema. No pneumothorax. Heart: Stable large cardiac shadow. Mediastinum: Normal contour. Bones/joints: No fracture, erosion or dislocation. Soft tissues: No abnormality noted. No radiopaque foreign body noted. Tubes, lines and devices: Right internal jugular central venous catheter tip in the mid superior vena cava. Upper abdomen: No abnormality noted. IMPRESSION: 1. There is improved pulmonary edema. There are new bilateral basilar infiltrates and small pleural effusions which may reflect compressive atelectasis and/or mucous plugging. 2. Lines and tubes as above. ACT 112: Negative or not required by law. Electronically signed by Shazia David 04-28-2024 4:[address] 04/28/24 16:47 EXAMINATION: Head CT without CLINICAL HISTORY: Weakness PRIORS: None TECHNIQUE: Contiguous axial images were obtained through the head without the use of intravenous contrast. Sagittal and coronal reformations are supplied. FINDINGS: Motion artifact degrades image quality. Moderate parenchymal volume loss noted. Quiñones-white differentiation is preserved. No edema or midline shift. No intra-axial or extra-axial hemorrhage. Ventricles are normal in size and configuration. Brainstem and cerebellum have a normal appearance. Calvarium unremarkable. Paranasal sinuses and mastoid air cells are well-pneumatized. Globes are intact. No retrobulbar abnormality. IMPRESSION: Moderate parenchymal volume loss with no CT evidence of an acute intracranial abnormality. Electronically signed by Indy 04-28-2024 6:25 PM Medications Administered Cefepime 2g IV ECG Additional Comments: A-fib with RVR, voltage criteria for LVH, minor nonspecific T wave abnormality 112 bpm, QRS 98, QT/QTc 330/450, PRT*/0/116 Code Status & VTE Plan Code Status Full Supervising Physician Co-Signing Physician Notes Patient seen and examined, chart reviewed, case discussed with SUMMER Perkins and I agree with the assessment and plan as above. In brief, patient is a 68yo male with h/o RCC, ESRD now on HD x 2 weeks presenting with generalized weakness, inability to stand or ambulate as well as cough/congestion x 4-5 days. Patient did not attend his HD session today. Patient with history of autoimmune hepatitis - abdnormal LFTs present - on chronic steroids On exam he is resting comfortably, NAD Skin - scattered bruising present on forearms, chest and hands, no open wounds HEENT -MMM Heart - +S1/S2, irregularly irregular, tachycardic Lungs - CTA anteriorly, no rales/rhonchi/wheezes Abd - soft, NT/ND, no masses Ext - 3+ pitting edema of bilateral LE, some bruising on posterior legs from recent use of compression stockings Labs and images reviewed WBC=11.37 with neutrophil predominance and bands Plt - 76 AL-167, Tbili=2 Procal=1.35 +entero/rhinovirus Assessment/Plan - 68yo male with RCC, ESRD on HD presenting with generalized weakness, PNA -Ceftriaxone and Azithromycin for presumed CAP -Repeat LFTs - if continue to increase would pursue additional imaging/RUQUS vs CT -Continue Steroids for AIH -Continue Apixaban and Metoprolol for management of atriral fibrillation -Nephrology consultation appreciated - patient missed HD today. Electrolytes are acceptable and no hypoxia -PT/OT -Remainder as above PG Care Time/CCT Total # of Minutes Spent Total Time Spent with Patient: Total time spent is greater than 50% in coordination of care (as documented) at patient's floor/unit and/or counseling patient: Coding Level of Care Code 41678 INT INP/OBS CARE 3/75MIN Diagnoses Pneumonia J18.9 Rhinovirus B34.8 MARILEE (acute kidney injury) N17.9 Atrial fibrillation with rapid ventricular response I48.91 Elevated troponin R79.89
[2024-04-28] MEDS: dilTIAZem HCL 30 MG TAB PO SCH (22:26)
[2024-04-28] MEDS: MIDODRINE HCL 10 MG TAB PO SCH (22:26)
[2024-04-28] MEDS: METOPROLOL SUCC 50MG EXT REL TAB PO SCH (22:27)
[2024-04-28] MEDS: APIXABAN 2.5 MG TAB PO SCH (22:29)
--- NOTE | 2024-04-28 23:16 | Emergency Department Note ---
History of Present Illness General Chief complaint: Weakness Stated complaint: LEG WEAKNESS Time Seen by Provider: 04/28/24 16:21 History of Present Illness Provider complaint: Weakness 68-year-old male end-stage renal disease Friday presents emergency department for weakness. Patient states he had a full session of dialysis yesterday but states he woke up today and felt very weak. No falls or traumas. No chest pain back pain shortness of breath abdominal pain or headache. Home Medications Medication Instructions Recorded Confirmed Type multivitamin 1 tab PO DAILY 11/11/18 04/28/24 History cholecalciferol (vitamin D3) 50 2,000 unit PO DAILY #30 tabs 10/15/22 04/28/24 History mcg (2,000 unit) tablet amoxicillin 500 mg capsule 2,000 mg PO DIRECTED PRN 1 HR 07/07/23 04/28/24 History PRIOR TO DENTAL APPT. betamethasone, augmented 0.05 % 1 applic topical BID PRN Skin 07/07/23 04/28/24 History topical cream Irritation levothyroxine 200 mcg tablet 200 mcg PO QAM 08/21/23 04/28/24 History ferrous sulfate 325 mg (65 mg 325 mg PO DAILY 11/05/23 04/28/24 History iron) tablet (iron) pantoprazole 40 mg tablet,delayed 40 mg PO QAM 11/17/23 04/28/24 History release apixaban 2.5 mg tablet (Eliquis) 2.5 mg PO BID #60 tabs 04/19/24 04/28/24 Rx diltiazem HCl 30 mg tablet 30 mg PO Q6H #120 tabs 04/19/24 04/28/24 Rx metoprolol succinate 25 mg 75 mg (3 x 25 mg) PO QAM #90 tabs 04/19/24 04/28/24 Rx tablet,extended release 24 hr metoprolol succinate 50 mg 100 mg (2 x 50 mg) PO QPM #60 tabs 04/19/24 04/28/24 Rx tablet,extended release 24 hr prednisone 10 mg tablet See Taper PO DIRECTED #196 tabs 04/19/24 04/28/24 Rx vitamin B complex and vitamin C 1 cap PO QAM #30 caps 04/19/24 04/28/24 Rx no.20-folic acid 1 mg capsule (Renal Caps) midodrine 10 mg tablet 10 mg PO TID #30 tabs 04/27/24 04/28/24 Rx bumetanide 2 mg tablet 2 mg PO DAILY 04/28/24 04/28/24 History Allergies Allergy/AdvReac Type Severity Reaction Status Date / Time No Known Allergies Allergy Verified 04/28/24 19:55 Past Med/Surg History Problem List (Updated 04/28/24 @ 23:29 by Tereso Arevalo MD) Lactic acidemia (Acute) Weakness (Acute) Rhinovirus (Acute) Pneumonia (Acute) Elevated troponin (Acute) Weakness Hyperglycemia End stage renal disease on dialysis (Acute) Mitral regurgitation Hyperkalemia Non-pressure chronic ulcer of right heel and midfoot with fat layer exposed Anemia Congestive heart failure (CHF) End stage chronic kidney disease S/P TAVR (transcatheter aortic valve replacement) Morbid obesity with BMI of 40.0-44.9, adult Autoimmune hepatitis treated with steroids MARILEE (acute kidney injury) GIB (gastrointestinal bleeding) (Acute) Thrombocytopenia (Acute) Atrial fibrillation with rapid ventricular response (Acute) Chronic diastolic CHF (congestive heart failure) (Acute) Chronic kidney disease, stage IV (severe) Metastatic renal cell carcinoma Abnormal LFTs Thrombocytopenia Microcytic anemia Heme positive stool Acute hypoxic respiratory failure (Acute) Hypoxia (Acute) Elevated troponin I level (Acute) Pulmonary edema (Acute) CKD (chronic kidney disease) (Acute) Immunotherapy Medical History Atrial fibrillation SARAH (obstructive sleep apnea) Hypercholesterolemia Hypertension Hypothyroidism Acute GI bleeding 2nd duodenal ulcer - 2023 Coagulopathy Heart failure with preserved ejection fraction Renal cell carcinoma stage 4 CKD (chronic kidney disease) stage 4, GFR 15-29 ml/min Surgical History S/p nephrectomy right Family History Mother Cancer colon ca; age 76 Father CHF (congestive heart failure) age 78 Social History Smoking Status: Never smoker Do You Dip or Chew Tobacco: No; Hx Alcohol Use: No Hx Substance Use: No Preferred Language: Samoan Communication Ability: Effective Rn Baby Required: No Beliefs That Will Affect Care: None marital status: Current Living Situation: Spouse Current Living Situation Comment: live in [facility] near [facility] current occupational status: 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[place] [facility] How many Children do You have: 2 Feels Safe at Home: Yes Assistive Devices: None Physical Exam Vital Signs Vital Signs - 24 hr 04/28/24 14:27 04/28/24 17:35 04/28/24 17:44 Temperature 36.5 C Temperature Source Oral Pulse Rate 110 H 111 H Pulse Rate [Apical] Pulse Rate from SpO2 Sensor Pulse Rhythm Pulse Rhythm [Apical] Pulse Strength [Apical] Respiratory Rate 20 Respiratory Effort / Characteristics Respiratory Depth Respiratory Pattern Blood Pressure 125/85 Blood Pressure [Left Arm] Blood Pressure Mean 98 Blood Pressure Mean [Left Arm] Blood Pressure Position [Left Arm] Pulse Oximetry 92 93 Oxygen Delivery Method Room Air Room Air Sepsis Recent Fever Within 48 Hours No Sepsis New/Unexplained Change in Mental Status N/A Sepsis Action Taken by Nursing No Action Required 04/28/24 17:44 04/28/24 17:44 04/28/24 17:51 Temperature Temperature Source Pulse Rate 104 H 99 H Pulse Rate [Apical] 104 H Pulse Rate from SpO2 Sensor 106 H Pulse Rhythm Regular Pulse Rhythm [Apical] Regular Pulse Strength [Apical] Normal Respiratory Rate 20 20 21 Respiratory Effort / Characteristics Non-Labored Spontaneous Respiratory Depth Normal Respiratory Pattern Regular Blood Pressure 114/84 Blood Pressure [Left Arm] 98/77 L Blood Pressure Mean 94 Blood Pressure Mean [Left Arm] 84 Blood Pressure Position [Left Arm] Lying Pulse Oximetry 92 92 91 Oxygen Delivery Method Room Air Room Air Sepsis Recent Fever Within 48 Hours Sepsis New/Unexplained Change in Mental Status Sepsis Action Taken by Nursing 04/28/24 17:56 04/28/24 19:00 Temperature Temperature Source Pulse Rate Pulse Rate [Apical] 103 H 100 H Pulse Rate from SpO2 Sensor Pulse Rhythm Pulse Rhythm [Apical] Pulse Strength [Apical] Respiratory Rate 22 20 Respiratory Effort / Characteristics Non-Labored Spontaneous Non-Labored Spontaneous Respiratory Depth Normal Normal Respiratory Pattern Regular Regular Blood Pressure Blood Pressure [Left Arm] 114/84 124/90 Blood Pressure Mean Blood Pressure Mean [Left Arm] 94 101 Blood Pressure Position [Left Arm] Lying Pulse Oximetry 92 92 Oxygen Delivery Method Room Air Room Air Sepsis Recent Fever Within 48 Hours Sepsis New/Unexplained Change in Mental Status Sepsis Action Taken by Nursing Physical Exam HENT: Exam performed. - Head: Normocephalic and atraumatic. - Right Ear: External ear normal. No mastoid erythema - Left Ear: External ear normal. No mastoid erythema - Mouth/Throat: The oropharynx is clear and moist. No trismus in the jaw. No dental abscesses or uvula swelling. No oropharyngeal exudate or tonsillar abscesses. EYES: Conjunctivae and EOM are normal. Pupils are equal, round, and reactive to light. Right eye exhibits no discharge. Left eye exhibits no discharge. No scleral icterus. NECK: Normal range of motion. Neck supple. No JVD present. CV: Tachycardic rate, irregular rhythm, normal heart sounds and intact distal pulses. 2+ pitting edema of the bilateral lower extremities palpable radial pulses bue. PULM/CHEST: Effort normal and breath sounds normal. No respiratory distress. No stridor. He has no wheezes. He has no rales. - Chest Wall: Permacath in the right chest ABD: The abdomen is soft. There is no tenderness. There is no rebound, no guarding NEURO: Motor and sensation grossly intact. SKIN: Diffuse ecchymosis of the bilateral upper and lower extremities. Course Course 1621: The patient was evaluated in room B9. A complete history and physical exam was performed Cardiac monitoring: An order was placed for continuous cardiac monitoring. The monitor shows a rate of 110 with atrial fibrilation rhythm interpreted by me 1920: Vital signs stable. Labs show white blood cell count 11.37 hemoglobin 8.9 coagulation studies unremarkable VBG within normal limits. Lactic acid 2.6. Will not give aggressive hydration given patient is a dialysis patient. Elevated high-sensitivity troponin. Procalcitonin 1.35. Urinalysis still pending. Patient was treated with broad-spectrum antibiotics cefepime. Patient positive for enterovirus rhinovirus. Imaging shows bibasilar infiltrates and small pleural effusions which may be atelectasis or mucous plugging. Urinalysis is still pending a source of infection, pneumonia could be a source of infection, the patient's permacath could also be source of infection. Patient states he is scheduled for surgery tomorrow to have better access for dialysis. [facility]. Administered Medications Apixaban (Apixaban 2.5 Mg Tab) 2.5 mg PO BID GURU Stop: 05/28/24 21:07 Last Admin: 04/28/24 22:29 Dose: Not Given Documented By: CONNIE Diltiazem HCl (Diltiazem Hcl 30 Mg Tab) 30 mg PO Q6H GURU Stop: 05/28/24 21:07 Last Admin: 04/28/24 22:26 Dose: 30 mg Documented By: CONNIE Metoprolol Succinate (Metoprolol Succ 50mg Ext Rel Tab) 100 mg PO QPM GURU Stop: 05/28/24 21:07 Last Admin: 04/28/24 22:27 Dose: 100 mg Documented By: CONNIE Midodrine (Midodrine Hcl 10 Mg Tab) 10 mg PO TID GURU Stop: 05/28/24 21:07 Last Admin: 04/28/24 22:26 Dose: 10 mg Documented By: CONNIE Discontinued Medications Cefepime HCl (Maxipime 2000mg) 2,000 mg in 20 mls @ 5 mls/min IV NOW STA; Protocol Stop: 04/28/24 18:01 Last Admin: 04/28/24 18:27 Dose: 5 mls/min Documented By: HARSHA Medical Decision Making Laboratory Data Attestation: I reviewed the patient's lab results. 04/28/24 17:33 04/28/24 17:33 Lab Results 04/28/24 04/28/24 04/28/24 Range/Units 17:33 17:38 17:48 WBC 11.37 H (4.8-10.8) K/ul RBC 3.75 L (4.70-6.10) M/uL Hgb 8.9 L (14.0-18.0) g/dl POC Hgb 9.2 L (14.0-18.0) g/dl Hct 30.6 L (42.0-52.0) % POC Hct 27 L (42-52) % MCV 81.6 (80.0-100.0) fL MCH 23.7 L (25.0-34.0) pg MCHC 29.1 L (32.0-36.0) g/dL RDW Std Deviation 58.3 H (36.4-46.3) fL RDW Coeff of Nick 21.0 H (11.5-14.5) % Plt Count 76 L (130-400) K/uL MPV 11.2 (9.4-12.4) fL Immature Gran % (Auto) 3.3 % Neut % (Auto) 85.8 % Lymph % (Auto) 7.9 % Faulk % (Auto) 2.8 % Eos % (Auto) 0.1 % Baso % (Auto) 0.1 % Neut # (Auto) 9.76 H (1.40-6.50) K/uL Lymph # (Auto) 0.90 L (1.20-3.40) K/uL Faulk # (Auto) 0.32 (0.11-0.59) K/uL Eos # (Auto) 0.01 (0.00-0.50) K/uL Baso # (Auto) 0.01 (0.00-0.20) K/uL Immature Gran # (Auto) 0.37 H (0.01-0.20) K/uL Absolute Nucleated RBC 0.28 H (0.00-0.12) K/uL Nucleated RBC % (auto) 2.5 % Polychromasia 2+ Anisocytosis Present PT 11.4 (9.0-12.0) Seconds INR 1.1 (0.9-1.1) APTT 33 H (21-31) Seconds PTT Ratio 1.2 VBG pH 7.37 (7.36-7.41) VBG pCO2 39 (38-50) mmHg VBG pO2 47 mmHg VBG HCO3 23 mmol/L VBG O2 Saturation 77.1 % VBG Base Excess -2.5 mEq/L POC Sodium 134 L (135-144) mmol/L Sodium 136 (136-145) mmol/L POC Potassium 4.5 (3.3-5.0) mmol/L Potassium 4.7 (3.5-5.1) mmol/L POC Chloride 99 L (101-112) mmol/L Chloride 98 (98-107) mmol/L Carbon Dioxide 25 (21-32) mmol/L POC Total CO2 24 (24-31) mmol/L Anion Gap 13 H (3-11) POC Anion Gap 16.0 (16-25) mmol/L POC BUN 74 H (7-18) mg/dl BUN 82 H (6-23) mg/dl Creatinine 5.54 H* (0.6-1.4) mg/dl POC Creatinine 6.3 H* (0.6-1.3) mg/dl Est Cr Clr Drug Dosing 19.8 ml/min eGFR 10.38 BUN/Creatinine Ratio 14.8 (10-20) Glucose 187 H (70-99(Fasting)) mg/dl POC Glucose (other) 185 H (70-99) mg/dl Lactate 2.6 H* (0.4-2.0) mmol/L Calcium 9.2 (8.6-10.3) mg/dl POC Ioniz Calcium Darlene 1.12 (1.12-1.32) mmol/l Magnesium 2.3 (1.7-2.4) mg/dl Total Bilirubin 2.0 H (0.2-1.0) mg/dl AST 32 (13-39) U/L ALT 33 (7-52) U/L Alkaline Phosphatase 167 H (34-104) U/L Troponin I High Sens 103.3 H* (0-20) pg/ml Total Protein 5.4 L (6.0-8.3) gm/dl Albumin 2.7 L (3.4-5.0) gm/dl Globulin 2.7 (2.5-4.0) gm/dl Albumin/Globulin Ratio 1.0 (0.9-2) Procalcitonin 1.35 H (0-0.5) ng/ml Urine Color Urine Appearance (Clear) Urine pH (4.5-7.5) Ur Specific [place] (1.000-1.030) Urine Protein (Negative) Urine Glucose (UA) (Negative) Urine Ketones (Negative) Urine Blood (Negative) Urine Nitrite (Negative) Urine Bilirubin (Negative) Urine Urobilinogen (Negative) Ur Leukocyte Esterase (Negative) Urine WBC (Auto) (0-5) /hpf Urine RBC (Auto) (0-2) /hpf U Hyaline Cast (Auto) (0-2) /lpf U Epithel Cells (Auto) (0-2) /hpf Urine Bacteria (Auto) (None Seen) Adenovirus (PCR) Not Detected (NotDetected) B. pertussis DNA (PCR) Not Detected (NotDetected) B.parapertussis DNA PCR Not Detected (NotDetected) C. pneumoniae DNA (PCR) Not Detected (NotDetected) Coronavirus OC43 (PCR) Not Detected (NotDetected) Coronavirus HKU1 (PCR) Not Detected (NotDetected) Coronavirus 229E (PCR) Not Detected (NotDetected) SARS-CoV-2 (PCR) Not Detected (NotDetected) Coronavirus NL63 (PCR) Not Detected (NotDetected) Human Metapneumovir PCR Not Detected (NotDetected) Influenza Type A (PCR) Not Detected (NotDetected) Influenza Type B (PCR) Not Detected (NotDetected) M. pneumoniae (PCR) Not Detected (NotDetected) Parainfluenza 1 (PCR) Not Detected (NotDetected) Parainfluenza 2 (PCR) Not Detected (NotDetected) Parainfluenza 3 (PCR) Not Detected (NotDetected) Parainfluenza 4 (PCR) Not Detected (NotDetected) RSV (PCR) Not Detected (NotDetected) Entero/Rhino (PCR) DETECTED A (NotDetected) 04/28/24 04/28/24 Range/Units 18:52 19:18 WBC (4.8-10.8) K/ul RBC (4.70-6.10) M/uL Hgb (14.0-18.0) g/dl POC Hgb (14.0-18.0) g/dl Hct (42.0-52.0) % POC Hct (42-52) % MCV (80.0-100.0) fL MCH (25.0-34.0) pg MCHC (32.0-36.0) g/dL RDW Std Deviation (36.4-46.3) fL RDW Coeff of Nick (11.5-14.5) % Plt Count (130-400) K/uL MPV (9.4-12.4) fL Immature Gran % (Auto) % Neut % (Auto) % Lymph % (Auto) % Faulk % (Auto) % Eos % (Auto) % Baso % (Auto) % Neut # (Auto) (1.40-6.50) K/uL Lymph # (Auto) (1.20-3.40) K/uL Faulk # (Auto) (0.11-0.59) K/uL Eos # (Auto) (0.00-0.50) K/uL Baso # (Auto) (0.00-0.20) K/uL Immature Gran # (Auto) (0.01-0.20) K/uL Absolute Nucleated RBC (0.00-0.12) K/uL Nucleated RBC % (auto) % Polychromasia Anisocytosis PT (9.0-12.0) Seconds INR (0.9-1.1) APTT (21-31) Seconds PTT Ratio VBG pH (7.36-7.41) VBG pCO2 (38-50) mmHg VBG pO2 mmHg VBG HCO3 mmol/L VBG O2 Saturation % VBG Base Excess mEq/L POC Sodium (135-144) mmol/L Sodium (136-145) mmol/L POC Potassium (3.3-5.0) mmol/L Potassium (3.5-5.1) mmol/L POC Chloride (101-112) mmol/L Chloride (98-107) mmol/L Carbon Dioxide (21-32) mmol/L POC Total CO2 (24-31) mmol/L Anion Gap (3-11) POC Anion Gap (16-25) mmol/L POC BUN (7-18) mg/dl BUN (6-23) mg/dl Creatinine (0.6-1.4) mg/dl POC Creatinine (0.6-1.3) mg/dl Est Cr Clr Drug Dosing ml/min eGFR BUN/Creatinine Ratio (10-20) Glucose (70-99(Fasting)) mg/dl POC Glucose (other) (70-99) mg/dl Lactate 2.3 H* (0.4-2.0) mmol/L Calcium (8.6-10.3) mg/dl POC Ioniz Calcium Darlene (1.12-1.32) mmol/l Magnesium (1.7-2.4) mg/dl Total Bilirubin (0.2-1.0) mg/dl AST (13-39) U/L ALT (7-52) U/L Alkaline Phosphatase (34-104) U/L Troponin I High Sens 92.3 H* D (0-20) pg/ml Total Protein (6.0-8.3) gm/dl Albumin (3.4-5.0) gm/dl Globulin (2.5-4.0) gm/dl Albumin/Globulin Ratio (0.9-2) Procalcitonin (0-0.5) ng/ml Urine Color Dark Yellow Urine Appearance Clear (Clear) Urine pH 5.0 (4.5-7.5) Ur Specific [place] 1.018 (1.000-1.030) Urine Protein 3+ H (Negative) Urine Glucose (UA) Trace H (Negative) Urine Ketones Trace H (Negative) Urine Blood Negative (Negative) Urine Nitrite Negative (Negative) Urine Bilirubin 1+ H (Negative) Urine Urobilinogen Negative (Negative) Ur Leukocyte Esterase Negative (Negative) Urine WBC (Auto) 0-5 (0-5) /hpf Urine RBC (Auto) 0-2 (0-2) /hpf U Hyaline Cast (Auto) 6-10 H (0-2) /lpf U Epithel Cells (Auto) 0-2 (0-2) /hpf Urine Bacteria (Auto) None Seen (None Seen) Adenovirus (PCR) (NotDetected) B. pertussis DNA (PCR) (NotDetected) B.parapertussis DNA PCR (NotDetected) C. pneumoniae DNA (PCR) (NotDetected) Coronavirus OC43 (PCR) (NotDetected) Coronavirus HKU1 (PCR) (NotDetected) Coronavirus 229E (PCR) (NotDetected) SARS-CoV-2 (PCR) (NotDetected) Coronavirus NL63 (PCR) (NotDetected) Human Metapneumovir PCR (NotDetected) Influenza Type A (PCR) (NotDetected) Influenza Type B (PCR) (NotDetected) M. pneumoniae (PCR) (NotDetected) Parainfluenza 1 (PCR) (NotDetected) Parainfluenza 2 (PCR) (NotDetected) Parainfluenza 3 (PCR) (NotDetected) Parainfluenza 4 (PCR) (NotDetected) RSV (PCR) (NotDetected) Entero/Rhino (PCR) (NotDetected) Imaging Data Radiologist's Impression: Chest X-Ray 04/28/24 14:29 EXAM: Radiograph of the Chest 1 View INDICATION: Weakness. TECHNIQUE: Frontal view of the chest. COMPARISON: 04/13/2024 FINDINGS: Lungs and pleural spaces: Increased bilateral pleural effusions and basilar airspace consolidation. There is vascular congestion with improved pulmonary edema. No pneumothorax. Heart: Stable large cardiac shadow. Mediastinum: Normal contour. Bones/joints: No fracture, erosion or dislocation. Soft tissues: No abnormality noted. No radiopaque foreign body noted. Tubes, lines and devices: Right internal jugular central venous catheter tip in the mid superior vena cava. Upper abdomen: No abnormality noted. IMPRESSION: 1. There is improved pulmonary edema. There are new bilateral basilar infiltrates and small pleural effusions which may reflect compressive atelectasis and/or mucous plugging. 2. Lines and tubes as above. ACT 112: Negative or not required by law. Electronically signed by Shazia David 04-28-2024 4:[address] 04/28/24 16:47 EXAMINATION: Head CT without CLINICAL HISTORY: Weakness PRIORS: None TECHNIQUE: Contiguous axial images were obtained through the head without the use of intravenous contrast. Sagittal and coronal reformations are supplied. FINDINGS: Motion artifact degrades image quality. Moderate parenchymal volume loss noted. Quiñones-white differentiation is preserved. No edema or midline shift. No intra-axial or extra-axial hemorrhage. Ventricles are normal in size and configuration. Brainstem and cerebellum have a normal appearance. Calvarium unremarkable. Paranasal sinuses and mastoid air cells are well-pneumatized. Globes are intact. No retrobulbar abnormality. IMPRESSION: Moderate parenchymal volume loss with no CT evidence of an acute intracranial abnormality. Electronically signed by Indy 04-28-2024 6:25 PM ECG Data Attestation: I personally reviewed and interpreted this ECG as follows: Rate (beats per minute): 112 Rhythm: + atrial fibrillation ECG Intervals/blocks: + Normal QRS and + Normal QT-c ECG ST segments: + Normal ST segments [facility] Narrative 1621: The patient was evaluated in room B9. A complete history and physical exam was performed Cardiac monitoring: An order was placed for continuous cardiac monitoring. The monitor shows a rate of 110 with atrial fibrilation rhythm interpreted by nc 1920: Vital signs stable. Labs show white blood cell count 11.37 hemoglobin 8.9 coagulation studies unremarkable VBG within normal limits. Lactic acid 2.6. Will not give aggressive hydration given patient is a dialysis patient. Elevated high-sensitivity troponin. Procalcitonin 1.35. Urinalysis still pending. Patient was treated with broad-spectrum antibiotics cefepime. Patient positive for enterovirus rhinovirus. Imaging shows bibasilar infiltrates and small pleural effusions which may be atelectasis or mucous plugging. Urinalysis is still pending a source of infection, pneumonia could be a source of infection, the patient's permacath could also be source of infection. Patient states he is scheduled for surgery tomorrow to have better access for dialysis. [facility]. Impression & Plan Weakness, End stage renal disease on dialysis, Elevated troponin, Pneumonia, Rhinovirus, Lactic acidemia Discharge Plan Visit Data Chief Complaint: Weakness Stated Complaint: LEG WEAKNESS ED Provider: Tereso Arevalo Discharge Problem: Weakness, End stage renal disease on dialysis, Elevated troponin, Pneumonia, Rhinovirus, Lactic acidemia Patient Disposition: Admitted As Inpatient Discharge Instructions Interventions: ED Discharge Assessment Last Done: 04/28/24 21:08
[2024-04-29 06:03] LABS: BUN Creatinine Ratio 14.8 (10-20); Calcium 8.7 mg/dl (8.6-10.3); Creatinine Clr Calc Pharmacy 18.8 ml/min; Potassium 4.8 mmol/L (3.5-5.1)
[2024-04-29 06:18] LABS: Hematocrit (blood only) 28.1 % (42.0-52.0); Hemoglobin 8.5 g/dl (14.0-18.0); Mean Corpuscular Hemoglobin 24.6 pg (25.0-34.0); Mean Corpuscular Hgb Conc 30.2 g/dL (32.0-36.0); Mean Corpuscular Volume 81.4 fL (80.0-100.0); Nucleated RBC # (auto) 0.29 K/uL (0.00-0.12); Nucleated RBC % (auto) 3.1 %; Platelet Count 72 K/uL (130-400); RDW Coefficient of Variation 20.5 % (11.5-14.5); RDW Standard Deviation 55.7 fL (36.4-46.3); Red Blood Count 3.45 M/uL (4.70-6.10)
[2024-04-29] MEDS: LEVOTHYROXINE SODIUM 200 MCG TABLET PO SCH (06:19)
[2024-04-29] MEDS: cefTRIAXone SODIUM 2,000 MG/50 ML BAG IV SCH (08:22)
[2024-04-29] MEDS: FERROUS SULFATE 325 MG TAB PO SCH (08:24)
[2024-04-29] MEDS: predniSONE 10 MG TABLET PO SCH (08:24)
[2024-04-29] MEDS: PANTOprazole 40 MG TAB PO SCH (08:24)
[2024-04-29] MEDS: METOPROLOL SUCC 25MG EXT REL TAB PO SCH (08:25)
[2024-04-29] MEDS: AZITHROMYCIN 250 MG TAB PO SCH (08:25)
[2024-04-29] MEDS: NITROGLYCERIN SL 0.4 MG/TAB TAB SL STA (10:54)
--- NOTE | 2024-04-29 10:54 | Communication Note ---
Date of Service: April 29, 2024 Code stacey called overhead for acute change in respiratory status. Resident to B9. Patient tachypneic with low oxygenation status. Patient with ESRD and he missed his dialysis appointment on Friday. Patient placed on BiPAP. Ordered CXR and ABG. Also a one time dose of SL nitro to help off load pressure and improve respiratory function. Dr. Caceres, attending, to bedside as well. Patient in moderate respiratory distress upon my arrival. Improved with BiPAP. Then able to speak in fractured sentences, and reports feeling better. No signs of cyanosis. Significant edema present bilateral lower extremities. Rounding hospitalist, Dr. Castellanos, was contacted and made aware of the change in status. Patient then taken to dialysis. Resident Activity Tracking Resident Involvement: Resident Care Provided Care Provided: Adult Hospital Medicine
--- NOTE | 2024-04-29 11:05 | XRay Report ---
XR chest 1V portable CLINICAL HISTORY: resp distress COMPARISON STUDY: 04/28/2024 FINDINGS: Stable right dialysis catheter. Stable cardiomegaly with pulmonary vascular congestion. Sta ble hazy opacity in the lung bases with obscuration of the diaphragm. No pneumothorax. IMPRESSION: Stable exam with CHF and stable lung base opacity which could represent atelectasis, pne umonia, or small pleural effusions. ACT 112: Negative or not required by law. Electronically signed by: Alex Garcia M.D. 04/29/2024 11:03 AM
[2024-04-29] MEDS ORDERED: NITROGLYCERIN 2% OINTMENT 30GM TUBE EXT PRN (11:20)
[2024-04-29 11:29] LABS: iSTAT Arterial Blood Gas HCO3 22 meg/L (19-24); iSTAT Arterial Blood Gas pCO2 42 mmHg (35-46); iSTAT Arterial Blood Gas pH 7.33 (7.35-7.45); iSTAT Arterial Blood Gas pO2 41 mmHg (80-95); iSTAT Carbon Dioxide 23 mmol/L (24-31); iSTAT FiO2 60 %; iSTAT Hematocrit 29 % (42-52); iSTAT Hemoglobin 9.9 g/dl (14.0-18.0); iSTAT Potassium 5.1 mmol/L (3.3-5.0); iSTAT Sample Type Arterial; iSTAT Sodium 132 mmol/L (135-144)
--- NOTE | 2024-04-29 11:51 | Nephrology Consultation ---
Date of Consultation April 29, 2024 Assessment & Plan (1) End stage renal disease on dialysis: Orders for HD today were entered into the EHR and reviewed with the mult au matic operator. Non-oliguric. HD at [facility]. Last treatment Friday. Missed HD yesterday. TDC functioning well. AVF was scheduled to be placed today but canceled due to hospitalization. Midodrine chronically for hypotension. 10 mg to be provided prior to HD. Renal diet. Document strict I/O's. Repeat metabolic profile tomorrow AM. Next HD likely tomorrow. (2) Congestive heart failure (CHF): UF with HD as tolerated. Rate control per hospitalist. (3) Weakness: PT/OT pending. Likely will require rehab post discharge. Consider possible steroid induced myopathy? +entero/rhino virus. History of Present Illness Reason for Consultation: ESRD on HD + RCC Requesting Physician: Lakia Castellanos MD Attending Physician: Lakia Castellanos MD History of Present Illness Paige is a 68-year-old male with CKD IV A3, morbid obesity, renal cell carcinoma, paroxysmal atrial fibrillation, aortic stenosis-->TAVR, SARAH, hypertension, hypercholesterolemia ,hypothyroidism, surgically absent right kidney s/p nephrectomy for renal cell carcinoma with recurrent disease in the left kidney. He started treatment with ipilimumab and nivolumab. Unfortunately, this was complicated by immunotherapy associated hepatitis and MARILEE. Multiple immunotherapy side effects have been noted including adrenal insufficiency. ESKD is attributed to hypertension, obesity, age and nephron loss. 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 R BC AVF unfortunately thrombosed prior to starting HD. Paige was admitted to [facility] last month with advanced kidney dysfunction and volume overload. He started HD via a RIJ TDC placed by Dr. Norton on April 16, 2024. He dialyzes at [facility] on a MWF schedule under my care. Chase's last HD treatment was completed on Friday. He missed HD yesterday due to severe weakness and ass ociated ambulatory dysfunction. Symptoms have been notable since hospital discharge. Paige states that he is able to walk but has proximal weakness in his legs and difficulty standing from sitting. He lives with his who was present during our evaluation in the ER today. Paige tested positive for entero/rhino virus. He has been started on Azithromycin for possible pneumonia. While using the bedpan in the ER, he suffered an acute hypoxic episode with RVR. He was placed on BIPAP and resting comfortably hen I evaluated him. I discussed the plan of care with Dr. Castellanos. Allergies Allergy/AdvReac Type Severity Reaction Status Date / Time No Known Allergies Allergy Verified 04/28/24 19:55 Home Medications Medication Instructions Recorded Confirmed Type multivitamin 1 tab PO DAILY 11/11/18 04/28/24 History cholecalciferol (vitamin D3) 50 2,000 unit PO DAILY #30 tabs 10/15/22 04/28/24 History mcg (2,000 unit) tablet amoxicillin 500 mg capsule 2,000 mg PO DIRECTED PRN 1 HR 07/07/23 04/28/24 History PRIOR TO DENTAL APPT. betamethasone, augmented 0.05 % 1 applic topical BID PRN Skin 07/07/23 04/28/24 History topical cream Irritation levothyroxine 200 mcg tablet 200 mcg PO QAM 08/21/23 04/28/24 History ferrous sulfate 325 mg (65 mg 325 mg PO DAILY 11/05/23 04/28/24 History iron) tablet (iron) pantoprazole 40 mg tablet,delayed 40 mg PO QAM 11/17/23 04/28/24 History release apixaban 2.5 mg tablet (Eliquis) 2.5 mg PO BID #60 tabs 04/19/24 04/28/24 Rx diltiazem HCl 30 mg tablet 30 mg PO Q6H #120 tabs 04/19/24 04/28/24 Rx metoprolol succinate 25 mg 75 mg (3 x 25 mg) PO QAM #90 tabs 04/19/24 04/28/24 Rx tablet,extended release 24 hr metoprolol succinate 50 mg 100 mg (2 x 50 mg) PO QPM #60 tabs 04/19/24 04/28/24 Rx tablet,extended release 24 hr prednisone 10 mg tablet See Taper PO DIRECTED #196 tabs 04/19/24 04/28/24 Rx vitamin B complex and vitamin C 1 cap PO QAM #30 caps 04/19/24 04/28/24 Rx no.20-folic acid 1 mg capsule (Renal Caps) midodrine 10 mg tablet 10 mg PO TID #30 tabs 04/27/24 04/28/24 Rx bumetanide 2 mg tablet 2 mg PO DAILY 04/28/24 04/28/24 History Patient History Medical History Atrial fibrillation SARAH (obstructive sleep apnea) Hypercholesterolemia Hypertension Hypothyroidism Acute GI bleeding 2nd duodenal ulcer - 2023 Coagulopathy Heart failure with preserved ejection fraction Renal cell carcinoma stage 4 CKD (chronic kidney disease) stage 4, GFR 15-29 ml/min Surgical History S/p nephrectomy right Family History Mother Cancer colon ca; age 76 Father CHF (congestive heart failure) age 78 Social History Smoking Status: Never smoker Do You Dip or Chew Tobacco: No; Hx Alcohol Use: No Hx Substance Use: No Preferred Language: Greek Communication Ability: Effective Files Supervisor Required: No Beliefs That Will Affect Care: None marital status: Current Living Situation: Spouse Current Living Situation Comment: live in [facility] near [facility], [place] current occupational status: retired 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[place] [place] How many Children do You have: 2 Feels Safe at Home: Yes Assistive Devices: Cane, CPAP, Walker and Wheelchair Review of Systems Review of Systems: All systems reviewed & are unremarkable except as noted in HPI & below Physical Exam Constitutional: well developed and + morbidly obese; no acute distress Eyes: no scleral abnormality and no corneal abnormality ENMT: Mouth: oral mucous membranes not dry Neck: normal visual inspection and trachea midline RIJ TDC with bruising Respiratory: normal respiratory effort Auscultation: lungs clear to auscultation bilaterally Cardiovascular: Rate/Rhythm: + tachycardic and + irregularly irregular Heart Sounds: normal S1 and normal S2 Extremities: + edema and + AV fistula (thrombosed) Musculoskeletal: Extremities: no cyanosis and no clubbing Skin: no lesions and no pallor Neurologic: Motor/Sensory: no tremor and no asterixis Psychiatric: Orientation: alert and oriented x 3 Results & Data Vital Signs (Past 12 Hours) Vital Signs Pulse Pulse Resp BP BP Pulse Ox O2 Del Method 04/29/24 11:27 104 H 33 H 96 04/29/24 10:03 101 H 29 H 90 Nasal Cannula 04/29/24 10:01 136/84 04/29/24 10:01 136/84 04/29/24 10:01 136/84 04/29/24 09:27 90 27 H 92 Nasal Cannula 04/29/24 09:19 88 L Nasal Cannula 04/29/24 09:00 98 H 27 H 90 04/29/24 08:54 99 H 28 H 90 04/29/24 08:41 101 H 04/29/24 08:33 108 H 23 90 04/29/24 08:24 105 H 20 91 04/29/24 08:21 134/92 04/29/24 08:21 134/92 04/29/24 08:15 96 H 24 90 04/29/24 08:12 106 H 24 90 04/29/24 08:03 103 H 24 90 04/29/24 08:00 Room Air 04/29/24 07:57 102 H 04/29/24 07:54 101 H 22 90 04/29/24 07:42 105 H 26 H 91 04/29/24 07:33 97 H 24 93 04/29/24 07:00 97 H 24 92 04/29/24 06:57 105 H 32 H 88 L 04/29/24 06:45 99 H 27 H 94 04/29/24 06:30 95 H 32 H 93 04/29/24 06:27 98 H 31 H 91 04/29/24 06:20 105 H 24 129/100 94 Room Air 04/29/24 06:19 129/100 04/29/24 06:15 92 H 37 H 96 04/29/24 06:12 91 H 44 H 96 04/29/24 06:03 89 41 H 95 04/29/24 05:33 102 H 25 H 95 04/29/24 05:24 99 H 28 H 96 04/29/24 05:15 88 29 H 95 04/29/24 05:06 92 H 28 H 95 04/29/24 04:42 104 H 24 95 04/29/24 04:33 93 H 36 H 95 04/29/24 04:21 103 H 24 97 04/29/24 04:15 91 H 26 H 95 04/29/24 04:03 100 H 28 H 95 04/29/24 03:34 131/99 02/06/25 03:34 131/99 04/29/24 03:33 97 H 20 96 04/29/24 03:30 101 H 24 131/99 96 CPAP 04/29/24 03:21 103 H 35 H 96 04/29/24 03:12 112 H 23 95 04/29/24 03:00 109 H 25 H 95 04/29/24 02:42 99 H 40 H 94 04/29/24 02:39 102 H 37 H 95 04/29/24 02:15 106 H 17 94 04/29/24 02:00 106 H 22 95 04/29/24 01:54 109 H 18 95 04/29/24 01:45 107 H 30 H 95 04/29/24 01:33 108 H 27 H 95 04/29/24 01:21 102 H 24 95 04/29/24 01:18 105 H 24 95 04/29/24 01:00 109 H 22 94 04/29/24 01:00 135/90 04/29/24 01:00 135/90 04/29/24 01:00 135/90 04/29/24 00:54 106 H 23 94 04/29/24 00:45 124/95 04/29/24 00:36 118 H 22 93 04/29/24 00:00 Room Air 04/29/24 00:00 105 H 24 142/97 H 95 Room Air O2 Flow Rate FiO2 04/29/24 11:27 60 04/29/24 10:03 2 04/29/24 10:01 04/29/24 10:01 04/29/24 10:01 04/29/24 09:27 2 04/29/24 09:19 0 04/29/24 09:00 04/29/24 08:54 04/29/24 08:41 04/29/24 08:33 04/29/24 08:24 04/29/24 08:21 04/29/24 08:21 04/29/24 08:15 04/29/24 08:12 04/29/24 08:03 04/29/24 08:00 04/29/24 07:57 04/29/24 07:54 04/29/24 07:42 04/29/24 07:33 04/29/24 07:00 04/29/24 06:57 04/29/24 06:45 04/29/24 06:30 04/29/24 06:27 04/29/24 06:20 04/29/24 06:19 04/29/24 06:15 04/29/24 06:12 04/29/24 06:03 04/29/24 05:33 04/29/24 05:24 04/29/24 05:15 04/29/24 05:06 04/29/24 04:42 04/29/24 04:33 04/29/24 04:21 04/29/24 04:15 04/29/24 04:03 04/29/24 03:34 04/29/24 03:34 04/29/24 03:33 04/29/24 03:30 04/29/24 03:21 04/29/24 03:12 04/29/24 03:00 04/29/24 02:42 04/29/24 02:39 04/29/24 02:15 04/29/24 02:00 04/29/24 01:54 04/29/24 01:45 04/29/24 01:33 04/29/24 01:21 04/29/24 01:18 04/29/24 01:00 04/29/24 01:00 04/29/24 01:00 04/29/24 01:00 04/29/24 00:54 04/29/24 00:45 04/29/24 00:36 04/29/24 00:00 04/29/24 00:00 Laboratory Results Laboratory Results - last 24 hr 04/28/24 04/28/24 04/28/24 17:33 17:38 17:48 WBC 11.37 H RBC 3.75 L Hgb 8.9 L POC Hgb 9.2 L Hct 30.6 L POC Hct 27 L MCV 81.6 MCH 23.7 L MCHC 29.1 L RDW Std Deviation 58.3 H RDW Coeff of Nick 21.0 H Plt Count 76 L MPV 11.2 Immature Gran % (Auto) 3.3 Neut % (Auto) 85.8 Lymph % (Auto) 7.9 Dickenson % (Auto) 2.8 Eos % (Auto) 0.1 Baso % (Auto) 0.1 Neut # (Auto) 9.76 H Lymph # (Auto) 0.90 L Dickenson # (Auto) 0.32 Eos # (Auto) 0.01 Baso # (Auto) 0.01 Immature Gran # (Auto) 0.37 H Absolute Nucleated RBC 0.28 H Nucleated RBC % (auto) 2.5 Polychromasia 2+ Anisocytosis Present PT 11.4 INR 1.1 APTT 33 H PTT Ratio 1.2 Specimen Type POC pH POC pCO2 POC pO2 POC HCO3 POC Base Excess POC ABG O2 Sat VBG pH 7.37 VBG pCO2 39 VBG pO2 47 VBG HCO3 23 VBG O2 Saturation 77.1 VBG Base Excess -2.5 POC FiO2 POC Sodium 134 L Sodium 136 POC Potassium 4.5 Potassium 4.7 POC Chloride 99 L Chloride 98 Carbon Dioxide 25 POC Total CO2 24 Anion Gap 13 H POC Anion Gap 16.0 POC BUN 74 H BUN 82 H Creatinine 5.54 H* POC Creatinine 6.3 H* Est Cr Clr Drug Dosing 19.8 eGFR 10.38 BUN/Creatinine Ratio 14.8 Glucose 187 H POC Glucose (other) 185 H Lactate 2.6 H* Calcium 9.2 POC Ioniz Calcium Darlene 1.12 Magnesium 2.3 Total Bilirubin 2.0 H AST 32 ALT 33 Alkaline Phosphatase 167 H Troponin I High Sens 103.3 H* Total Protein 5.4 L Albumin 2.7 L Globulin 2.7 Albumin/Globulin Ratio 1.0 Procalcitonin 1.35 H Urine Color Urine Appearance Urine pH Ur Specific [place] Urine Protein Urine Glucose (UA) Urine Ketones Urine Blood Urine Nitrite Urine Bilirubin Urine Urobilinogen Ur Leukocyte Esterase Urine WBC (Auto) Urine RBC (Auto) U Hyaline Cast (Auto) U Epithel Cells (Auto) Urine Bacteria (Auto) Nasal Screen MRSA (PCR) Adenovirus (PCR) Not Detected B. pertussis DNA (PCR) Not Detected B.parapertussis DNA PCR Not Detected C. pneumoniae DNA (PCR) Not Detected Coronavirus OC43 (PCR) Not Detected Coronavirus HKU1 (PCR) Not Detected Coronavirus 229E (PCR) Not Detected SARS-CoV-2 (PCR) Not Detected Coronavirus NL63 (PCR) Not Detected Human Metapneumovir PCR Not Detected Influenza Type A (PCR) Not Detected Influenza Type B (PCR) Not Detected M. pneumoniae (PCR) Not Detected Parainfluenza 1 (PCR) Not Detected Parainfluenza 2 (PCR) Not Detected Parainfluenza 3 (PCR) Not Detected Parainfluenza 4 (PCR) Not Detected RSV (PCR) Not Detected Entero/Rhino (PCR) DETECTED A 04/28/24 04/28/24 04/28/24 18:52 19:18 23:51 WBC RBC Hgb POC Hgb Hct POC Hct MCV MCH MCHC RDW Std Deviation RDW Coeff of Nick Plt Count MPV Immature Gran % (Auto) Neut % (Auto) Lymph % (Auto) Dickenson % (Auto) Eos % (Auto) Baso % (Auto) Neut # (Auto) Lymph # (Auto) Dickenson # (Auto) Eos # (Auto) Baso # (Auto) Immature Gran # (Auto) Absolute Nucleated RBC Nucleated RBC % (auto) Polychromasia Anisocytosis PT INR APTT PTT Ratio Specimen Type POC pH POC pCO2 POC pO2 POC HCO3 POC Base Excess POC ABG O2 Sat VBG pH VBG pCO2 VBG pO2 VBG HCO3 VBG O2 Saturation VBG Base Excess POC FiO2 POC Sodium Sodium POC Potassium Potassium POC Chloride Chloride Carbon Dioxide POC Total CO2 Anion Gap POC Anion Gap POC BUN BUN Creatinine POC Creatinine Est Cr Clr Drug Dosing eGFR BUN/Creatinine Ratio Glucose POC Glucose (other) Lactate 2.3 H* Calcium POC Ioniz Calcium Darlene Magnesium Total Bilirubin AST ALT Alkaline Phosphatase Troponin I High Sens 92.3 H* D Total Protein Albumin Globulin Albumin/Globulin Ratio Procalcitonin Urine Color Dark Yellow Urine Appearance Clear Urine pH 5.0 Ur Specific [place] 1.018 Urine Protein 3+ H Urine Glucose (UA) Trace H Urine Ketones Trace H Urine Blood Negative Urine Nitrite Negative Urine Bilirubin 1+ H Urine Urobilinogen Negative Ur Leukocyte Esterase Negative Urine WBC (Auto) 0-5 Urine RBC (Auto) 0-2 U Hyaline Cast (Auto) 6-10 H U Epithel Cells (Auto) 0-2 Urine Bacteria (Auto) None Seen Nasal Screen MRSA (PCR) Negative Adenovirus (PCR) B. pertussis DNA (PCR) B.parapertussis DNA PCR C. pneumoniae DNA (PCR) Coronavirus OC43 (PCR) Coronavirus HKU1 (PCR) Coronavirus 229E (PCR) SARS-CoV-2 (PCR) Coronavirus NL63 (PCR) Human Metapneumovir PCR Influenza Type A (PCR) Influenza Type B (PCR) M. pneumoniae (PCR) Parainfluenza 1 (PCR) Parainfluenza 2 (PCR) Parainfluenza 3 (PCR) Parainfluenza 4 (PCR) RSV (PCR) Entero/Rhino (PCR) 04/29/24 04/29/24 05:26 11:16 WBC 9.50 RBC 3.45 L Hgb 8.5 L POC Hgb 9.9 L Hct 28.1 L POC Hct 29 L MCV 81.4 MCH 24.6 L MCHC 30.2 L RDW Std Deviation 55.7 H RDW Coeff of Nick 20.5 H Plt Count 72 L MPV Immature Gran % (Auto) Neut % (Auto) Lymph % (Auto) Dickenson % (Auto) Eos % (Auto) Baso % (Auto) Neut # (Auto) Lymph # (Auto) Dickenson # (Auto) Eos # (Auto) Baso # (Auto) Immature Gran # (Auto) Absolute Nucleated RBC 0.29 H Nucleated RBC % (auto) 3.1 Polychromasia Anisocytosis PT INR APTT PTT Ratio Specimen Type Arterial POC pH 7.33 L POC pCO2 42 POC pO2 41 L POC HCO3 22 POC Base Excess -4.0 POC ABG O2 Sat 73.0 L VBG pH VBG pCO2 VBG pO2 VBG HCO3 VBG O2 Saturation VBG Base Excess POC FiO2 60 POC Sodium 132 L Sodium 135 L POC Potassium 5.1 H Potassium 4.8 POC Chloride Chloride 99 Carbon Dioxide 22 POC Total CO2 23 L Anion Gap 14 H POC Anion Gap POC BUN BUN 86 H Creatinine 5.83 H* POC Creatinine Est Cr Clr Drug Dosing 18.8 eGFR 9.76 BUN/Creatinine Ratio 14.8 Glucose 163 H POC Glucose (other) Lactate Calcium 8.7 POC Ioniz Calcium Darlene Magnesium Total Bilirubin AST ALT Alkaline Phosphatase Troponin I High Sens Total Protein Albumin Globulin Albumin/Globulin Ratio Procalcitonin Urine Color Urine Appearance Urine pH Ur Specific [place] Urine Protein Urine Glucose (UA) Urine Ketones Urine Blood Urine Nitrite Urine Bilirubin Urine Urobilinogen Ur Leukocyte Esterase Urine WBC (Auto) Urine RBC (Auto) U Hyaline Cast (Auto) U Epithel Cells (Auto) Urine Bacteria (Auto) Nasal Screen MRSA (PCR) Adenovirus (PCR) B. pertussis DNA (PCR) B.parapertussis DNA PCR C. pneumoniae DNA (PCR) Coronavirus OC43 (PCR) Coronavirus HKU1 (PCR) Coronavirus 229E (PCR) SARS-CoV-2 (PCR) Coronavirus NL63 (PCR) Human Metapneumovir PCR Influenza Type A (PCR) Influenza Type B (PCR) M. pneumoniae (PCR) Parainfluenza 1 (PCR) Parainfluenza 2 (PCR) Parainfluenza 3 (PCR) Parainfluenza 4 (PCR) RSV (PCR) Entero/Rhino (PCR) PG Care Time/CCT Total # of Minutes Spent Total Time Spent with Patient: Total time spent is greater than 50% in coordination of care (as documented) at patient's floor/unit and/or counseling patient: Coding Level of Care Code 03185 IN/OBS CONSULT LVL 5,80M Diagnoses End stage renal disease on dialysis N18.6; Z99.2 Congestive heart failure (CHF) I50.9 Weakness R53.1
[2024-04-29] MEDS: FUROSEMIDE 40 MG/4 ML VIAL IV ONE (13:08)
--- NOTE | 2024-04-29 18:45 | Hospitalist Progress Note ---
Date of Service April 29, 2024 Assessment & Plan (1) Acute pulmonary edema: (2) Pneumonia: (3) Rhinovirus: (4) MARILEE (acute kidney injury): (5) Atrial fibrillation with rapid ventricular response: (6) Elevated troponin: Plan 68-year-old gentleman PMHx ESRD on dialysis (M/W/F), CHF, s/p TAVR, A-fib, RCC, HTN, hypercholesterolemia, hypothyroidism, and SARAH presenting to ED for BLE weakness starting on the day of arrival. Patient has renal cell carcinoma and recently started treatment and dialysis 2 weeks prior to arrival. Evidence of leukocytosis (11.37), anemia (H&H 8.9/9.2, microcytic/hypochromic pattern), CMP with anion gap 13, BUN 82, creatinine 5.54, lactate 2.6 down trended to 2.3, elevated LFTs (bilirubin 2, alkaline phosphatase 167), troponin 103.3 down trended to 92.3, protein 5.4, BUN 2.7, Pro-Long 1.35. UA negative for bacteria, BioFire positive for entero-/rhinovirus. CXR with pulmonary edema and new bilateral basilar infiltrates with small pleural effusion. Head CT without acute findings. EKG at arrival A-fib with RVR (112 bpm). Given 1 dose cefepime in ED. # acute hypoxic respiratory failure due to acute/flash pulmonary edema, acute on chronic diastolic heart failure midmorning began to have O2 requirement and was placed on 2 L, less than an hour later was severely hypoxic sats in mid 80s on 15 L, hypertensive, given sublingual nitroglycerin and placed on BiPAP physical exam consistent with pulmonary edema/volume overload and chest x-ray by my interpretation showed bilateral pulmonary edema, left greater than right base opacities, probable bilateral pleural effusions right greater than left - treated with continuous BiPAP, as needed Nitropaste for hypertension, discussed with Dr. Washington he had urgent dialysis with 3 L ultrafiltration dyspnea and hypoxia much improved following dialysis - trying for nasal cannula this afternoon, discussed with RT plan to use BiPAP overnight and as needed - discussed with dialysis nurse plans to have dialysis again tomorrow # rhinovirus/enterovirus infection - may be contributing to hypoxia and pulmonary infiltrates, supportive care # possible bibasilar bacterial pneumonia, very difficult to determine, procalcitonin slightly elevated but can be elevated due to renal failure/dialy sis -continue azithromycin and ceftriaxone # bilateral lower extremity weaknessinterestingly this has improved significantly following hemodialysis, he thinks that his leg edema was just so heavy he could not move his legs - monitor symptoms and exam #AMRILEE/RCC/ESRD on HD Baseline creatinine (fall 2023) 3-3.5; with solitary L kidney; hemodialysis on M/W/F, did not receive HD on day of arrival as initially scheduled. Follows with Dr. Grijalva at cancer [facility] for RCC, on Opdivo. Midodrine for hypotension. - consulted nephrology, dialysis as above - due for fistula to be placed 04/29/2023 but will need rescheduled - notified vascular surgery - monitor BMP, magnesium, Phos #A-fib with RVR/Elevated troponin H/o Afib, on Eliquis. 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 Initially addressed on most recent hospital stay end of March 2023, but has increased since then. - No abdominal pain or GI symptoms, some tenderness to palpation of RUQ. - LFTs total bilirubin 2.0, alk phos 167 - Steroid course started- 04/28 started on 60 mg daily, continue for next 7 Days - monitor LFTs #Anemia- H/o microcytic anemia per last hospital stay, started on iron daily; H/H at admission 8.9/30.6; CBC a.m., consider transfusion if hemoglobin <7 #Hypothyroidism- Levothyroxine #GERD- Pantoprazole #SARAH- BiPAP at night tonight, usually on CPAP VTE prophylaxis: On Eliquis PT/OT when respiratory status improved I updated his at the bedside 04/29 Admission and Anticipated Discharge Date Admission Date: April 28, 2024 Subjective Seen twice - late morning developed rapidly worsening hypoxia and respiratory distress, hypertension treated with nitroglycerin and expedited dialysis Following HD feeling much better, O2 at 4L, no longer severely short of breath After HD he was able to move his legs (previously couldn't). 3L UF today Physical Exam Physical Exam: PHYSICAL EXAMINATION Last 24h vital signs reviewed, see documentation in flowsheet General: sitting bolt upright in bed wearing BiPAP, respiratory distress HEENT: Normocephalic, atraumatic, pupils round and equal, sclerae anicteric, no conjunctival injection, moist mucus membranes Lungs: labored tachypneic respiratory effort. diffuse bilateral crackles no wheezing Heart: tachycardic Regular rate and rhythm, no murmurs. cannot see neck veins Abdomen: Soft, nontender, nondistended. Bowel sounds present. Extremities: Warm, dry, well-perfused. 3+ bilateral lower extremity edema. Neuro: Alert and oriented x 4, face symmetric, moves 4 extremities well Psych: Normal affect and behavior Results & Data Results & Data Vital Signs (Past 12 Hours) Vital Signs Temp Pulse Pulse Pulse Resp BP BP 04/29/24 17:26 109 H 30 H 114/87 04/29/24 16:42 97.7 F 58 L 106/73 04/29/24 16:30 110 H 91/71 L 04/29/24 16:00 101 H 107/81 04/29/24 15:30 111 H 97/54 L 04/29/24 15:00 120 H 103/78 04/29/24 14:30 121 H 110/81 04/29/24 14:00 108 H 128/82 04/29/24 13:40 83 128/90 04/29/24 13:35 84 28 H 04/29/24 13:32 97.7 F 78 04/29/24 13:12 87 21 113/76 04/29/24 11:27 104 H 33 H 04/29/24 10:03 101 H 29 H 04/29/24 10:01 136/84 04/29/24 10:01 136/84 04/29/24 10:01 136/84 04/29/24 09:27 90 27 H 04/29/24 09:19 04/29/24 09:00 98 H 27 H 04/29/24 08:54 99 H 28 H 04/29/24 08:41 101 H 04/29/24 08:33 108 H 23 04/29/24 08:24 105 H 20 04/29/24 08:21 134/92 04/29/24 08:21 134/92 04/29/24 08:15 96 H 24 04/29/24 08:12 106 H 24 04/29/24 08:03 103 H 24 04/29/24 08:00 04/29/24 07:57 102 H 04/29/24 07:54 101 H 22 04/29/24 07:42 105 H 26 H 04/29/24 07:33 97 H 24 04/29/24 07:00 97 H 24 04/29/24 06:57 105 H 32 H 04/29/24 06:45 99 H 27 H Pulse Ox O2 Del Method O2 Flow Rate FiO2 04/29/24 17:26 97 Nasal Cannula 4 04/29/24 16:42 04/29/24 16:30 04/29/24 16:00 04/29/24 15:30 04/29/24 15:00 04/29/24 14:30 04/29/24 14:00 04/29/24 13:40 04/29/24 13:35 99 50 04/29/24 13:32 04/29/24 13:12 100 BiPAP 04/29/24 11:27 96 60 04/29/24 10:03 90 Nasal Cannula 2 04/29/24 10:01 04/29/24 10:01 04/29/24 10:01 04/29/24 09:27 92 Nasal Cannula 2 04/29/24 09:19 88 L Nasal Cannula 0 04/29/24 09:00 90 04/29/24 08:54 90 04/29/24 08:41 04/29/24 08:33 90 04/29/24 08:24 91 04/29/24 08:21 04/29/24 08:21 04/29/24 08:15 90 04/29/24 08:12 90 04/29/24 08:03 90 04/29/24 08:00 Room Air 04/29/24 07:57 04/29/24 07:54 90 04/29/24 07:42 91 04/29/24 07:33 93 04/29/24 07:00 92 04/29/24 06:57 88 L 04/29/24 06:45 94 PG Care Time/CCT Total # of Minutes Spent Total Time Spent with Patient: Total time spent is greater than 50% in coordination of care (as documented) at patient's floor/unit and/or counseling patient: Coding Level of Care Code 93327 SUB INP/OBS CARE 350MIN Diagnoses Acute pulmonary edema J81.0 Pneumonia J18.9 Rhinovirus B34.8 MARILEE (acute kidney injury) N17.9 Atrial fibrillation with rapid ventricular response I48.91 Elevated troponin R79.89
[2024-04-30 08:04] LABS: Hematocrit (blood only) 30.4 % (42.0-52.0); Hemoglobin 8.9 g/dl (14.0-18.0); Mean Corpuscular Hemoglobin 24.2 pg (25.0-34.0); Mean Corpuscular Hgb Conc 29.3 g/dL (32.0-36.0); Mean Corpuscular Volume 82.6 fL (80.0-100.0); Nucleated RBC # (auto) 0.31 K/uL (0.00-0.12); Nucleated RBC % (auto) 3.8 %; Platelet Count 60 K/uL (130-400); RDW Coefficient of Variation 21.8 % (11.5-14.5); RDW Standard Deviation 58.5 fL (36.4-46.3); Red Blood Count 3.68 M/uL (4.70-6.10)
[2024-04-30] MEDS ORDERED: DEXTROSE 50% 50 ML SYRINGE IV PRN (08:12)
[2024-04-30] MEDS ORDERED: CARBOHYDRATES FOR HYPOGLYCEMIA PO PRN (08:12)
[2024-04-30] MEDS ORDERED: GLUCAGON FOR INJ 1 MG VIAL SQ PRN (08:12)
[2024-04-30] MEDS ORDERED: GLUCOSE 10 TAB/TUBE PO PRN (08:12)
[2024-04-30] MEDS ORDERED: GLUCOSE 40% GEL 15 GM TUBE PO PRN (08:12)
[2024-04-30 08:17] LABS: Alanine Aminotransferase 34 U/L (7-52); Albumin Level 2.7 gm/dl (3.4-5.0); Alkaline Phosphatase 167 U/L (34-104); Anion Gap 12 (3-11); BUN Creatinine Ratio 12.9 (10-20); Bilirubin,Total 1.7 mg/dl (0.2-1.0); Blood Urea Nitrogen 67 mg/dl (6-23); Calcium 9.1 mg/dl (8.6-10.3); Carbon Dioxide 25 mmol/L (21-32); Chloride 100 mmol/L (98-107); Creatinine Clr Calc Pharmacy 21.1 ml/min; Ferritin 242.6 ng/ml (8-388); Glucose 153 mg/dl (70-99(Fasting)); Sodium 137 mmol/L (136-145); Total Iron Binding Cap Calc 351 mcg/dl (250-450); Total Protein 5.5 gm/dl (6.0-8.3); Transferrin 251 mg/dl (200-360)
[2024-04-30] MEDS: METOPROLOL SUCC 25MG EXT REL TAB PO STA (11:07)
[2024-04-30 11:20] LABS: Bilirubin Direct 0.9 mg/dl (0-0.2); Potassium 4.4 mmol/L (3.5-5.1)
[2024-04-30] MEDS: INSULIN ASPART PER UNIT CHARGE SC SCH (11:30)
[2024-04-30] MEDS: METOPROLOL SUCC 25MG EXT REL TAB PO SCH (11:38)
[2024-04-30] MEDS: METOPROLOL TARTRATE 1 MG/ML VIAL IV STA (17:05)
--- NOTE | 2024-04-30 17:51 | Hospitalist Progress Note ---
Date of Service April 30, 2024 Assessment & Plan (1) Acute pulmonary edema: (2) Pneumonia: (3) Rhinovirus: (4) MARILEE (acute kidney injury): (5) Atrial fibrillation with rapid ventricular response: (6) Elevated troponin: Plan 68-year-old gentleman PMHx ESRD on dialysis (//), CHF, s/p TAVR, A-fib, RCC, HTN, hypercholesterolemia, hypothyroidism, and SARAH presenting to ED for BLE weakness starting on the day of arrival. Patient has renal cell carcinoma and recently started treatment and dialysis 2 weeks prior to arrival. mild leukocytosis of 11, UA negative for bacteria, BioFire positive for entero- /rhinovirus. CXR with pulmonary edema and new bilateral basilar infiltrates with small pleural effusion. Head CT without acute findings. EKG at arrival A- fib with RVR (112 bpm). Given 1 dose cefepime in ED. # acute hypoxic respiratory failure due to acute/flash pulmonary edema, acute on chronic diastolic heart failure - acute pulmonary edema was treated with continuous BiPAP, nitroglycerin, urgent dialysis with 3 L ultrafiltration on 04/29, dialysis again this morning 04/30 with another 3 L removed - hypoxia much improved now satting in low 90s on 2 L, work of breathing significantly improved as has lung exam - consider another dialysis run tomorrow continues to be volume overloaded with severe anasarca # rhinovirus/enterovirus infection - may be contributing to hypoxia and pulmonary infiltrates, supportive care # possible bibasilar bacterial pneumonia, very difficult to determine, procalcitonin slightly elevated but can be elevated due to renal failure/dialysis -continue azithromycin and ceftriaxone # bilateral lower extremity weaknessinterestingly this has improved significantly following hemodialysis, he thinks that his leg edema was just so heavy he could not move his legs - monitor symptoms and exam - PT/OT eval #MARILEE/RCC/ESRD on HD Baseline creatinine (fall 2023) 3-3.5; with solitary L kidney; hemodialysis on //, did not receive HD on day of arrival as initially scheduled. Follows with Dr. Grijalva at [facility] for RCC, on Opdivo. Midodrine for hypotension. - consulted nephrology, dialysis as above - due for fistula to be placed 04/29/2023 but will need rescheduled - notified vascular surgery - continue midodrine because of hypotension with dialysis - monitor BMP, magnesium, Phos #A-fib with RVR/Elevated troponin H/o Afib, on Eliquis. - Home medications metoprolol, diltiazem; Anticoagulated on Eliquis - continue these, expect improvement in rates with improvement in volume status. considered IV metoprolol prior to dialysis for rates in 120s, however, Discussed with marine operations coordinator he has hypotension with dialysis so we will just continue his oral medications. 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 Initially addressed on most recent hospital stay end of March 2023, but has increased since then. - No abdominal pain or GI symptoms, some tenderness to palpation of RUQ. - LFTs total bilirubin 2.0, alk phos 167 - Steroid course started- 04/28 started on 60 mg daily, continue for next 7 Days - monitor LFTs - bilirubin improved to 1.7 #Anemia- H/o microcytic anemia per last hospital stay, started on iron daily - iron studies reviewed, hemoglobin stable today at 9, transfusion not indicated at this time #Hypothyroidism- Levothyroxine #GERD- Pantoprazole #SARAH- continue CPAP VTE prophylaxis: On Eliquis PT/OT I updated his at the bedside 04/29, 04/30 Admission and Anticipated Discharge Date Admission Date: April 28, 2024 Subjective Mr. Guadalupe is doing much better today he had a second run of dialysis this morning again about 3.5 L taken off, breathing is much better though still dyspneic with exertion, hypoxia improved satting around 90% on 2 L, leg edema has improved and now he can move his legs around though still a lot of difficulty with mobility Physical Exam 2 Physical Exam: PHYSICAL EXAMINATION Last 24h vital signs reviewed, see documentation in flowsheet General: sitting on edge of the bed awake and alert HEENT: Normocephalic, atraumatic, pupils round and equal, sclerae anicteric, no conjunctival injection, moist mucus membranes Lungs: normal work of breathing, tubular breath sounds in right base otherwise clear Heart: tachycardic irregular, no murmurs. cannot see neck veins Abdomen: Soft, nontender, nondistended. Bowel sounds present. Extremities: Warm, dry, well-perfused. 3+ bilateral lower extremity edema. it is still quite severe but has improved compared to yesterday morning. he also has generalized anasarca including upper extremity edema Neuro: Alert and oriented x 4, face symmetric, moves 4 extremities, his ability to move his legs is improved, he has generalized weakness Psych: Normal affect and behavior Results & Data Results & Data Vital Signs (Past 12 Hours) Vital Signs Temp Pulse Pulse Pulse Resp BP BP 04/30/24 16:07 98.1 F 103 H 18 124/77 04/30/24 14:30 97.9 F 121 H 101/68 04/30/24 14:00 64 96/69 L 04/30/24 13:30 88 102/69 04/30/24 13:00 83 97/59 L 04/30/24 12:30 78 100/65 04/30/24 12:00 76 106/67 04/30/24 11:30 126 H 103/76 04/30/24 11:00 116 H 94/56 L 04/30/24 10:42 105 H 119/86 04/30/24 10:36 97.9 F 115 H 04/30/24 08:00 04/30/24 07:27 110 H 20 115/78 Pulse Ox O2 Del Method O2 Flow Rate 04/30/24 16:07 91 Nasal Cannula 2 04/30/24 14:30 04/30/24 14:00 04/30/24 13:30 04/30/24 13:00 04/30/24 12:30 04/30/24 12:00 04/30/24 11:30 04/30/24 11:00 04/30/24 10:42 04/30/24 10:36 04/30/24 08:00 Nasal Cannula 4 04/30/24 07:27 94 Nasal Cannula 4 Laboratory Results 04/30/24 06:58 04/30/24 10:46 bilirubin has improved from 2.0 down to 1.7, AST ALT are not elevated, albumin is low at 2.7 PG Care Time/CCT Total # of Minutes Spent Total Time Spent with Patient: Total time spent is greater than 50% in coordination of care (as documented) at patient's floor/unit and/or counseling patient: Coding Level of Care Code 11640 SUB INP/OBS CARE 3/50MIN Diagnoses Acute pulmonary edema J81.0 Pneumonia J18.9 Rhinovirus B34.8 MARILEE (acute kidney injury) N17.9 Atrial fibrillation with rapid ventricular response I48.91 Elevated troponin R79.89
[2024-05-01 06:47] LABS: Hematocrit (blood only) 30.9 % (42.0-52.0); Hemoglobin 8.9 g/dl (14.0-18.0); Mean Corpuscular Hemoglobin 24.3 pg (25.0-34.0); Mean Corpuscular Hgb Conc 28.8 g/dL (32.0-36.0); Mean Corpuscular Volume 84.4 fL (80.0-100.0); Mean Platelet Volume 11.4 fL (9.4-12.4); Nucleated RBC # (auto) 0.42 K/uL (0.00-0.12); Nucleated RBC % (auto) 4.9 %; Platelet Count 66 K/uL (130-400); RDW Coefficient of Variation 21.5 % (11.5-14.5); RDW Standard Deviation 62.3 fL (36.4-46.3); Red Blood Count 3.66 M/uL (4.70-6.10); White Blood Count 8.58 K/ul (4.8-10.8)
[2024-05-01 06:57] LABS: BUN Creatinine Ratio 11.4 (10-20); Calcium 9.2 mg/dl (8.6-10.3); Creatinine Clr Calc Pharmacy 25.3 ml/min; Potassium 4.9 mmol/L (3.5-5.1)
--- NOTE | 2024-05-01 08:44 | Nephrology Progress Note ---
Date of Service May 01, 2024 Assessment & Plan (1) End stage renal disease on dialysis: Plan: * Orders for HD today were entered into the EHR and reviewed with the building specialist. * Non-oliguric. Will resume Bumex 2mg IV daily * Outpatient orders: [facility] D[facility] MWF 3.5hr F-180NR 3K 2.5Ca Na140 HCO3 34 EDW 157kg * Will need AVF scheduled as outpatient * Midodrine required due to chronic hypotension. 10 mg to be provided prior to HD. (2) Congestive heart failure (CHF): Plan: * UF with HD as tolerated. Rate control per hospitalist. (3) Weakness: Plan: * PT/OT not yet started * Likely will require rehab post discharge. Consider possible steroid induced myopathy? +entero/rhino virus. Admission and Anticipated Discharge Date Admission Date: April 28, 2024 Subjective Mr. Guadalupe was evaluated in his hospital room and later while on HD this morning. He reports significant fluid retention but notes that his breathing has improved following 6.5 L UF over the last days. Although rhinovirus + he currently denies fever, cough, angina or uremic symptoms. As outpatient he had been on bumetanide. He reports good UO. He questions whether loop diuretic therapy should be restarted. Review of Systems Constitutional: no fever Eyes: no problem reported Ear, Nose, Mouth, Throat: no problem reported Respiratory: no cough and no dyspnea Cardiovascular: no chest pain Gastrointestinal: no abdominal pain, no nausea, no vomiting and no diarrhea/loose stools Integumentary: no rash Physical Exam Constitutional: not in distress Eyes: PERRL, conjunctivae normal, anicteric sclerae ENMT: external ear and nose normal, oropharynx normal Neck: trachea midline, no thyromegaly Respiratory: normal respiratory effort (Diminished breath sounds right base) Cardiovascular: RRR, no murmur, no edema Rate/Rhythm: + tachycardic Extremities: + edema (3+ dependent edema) Gastrointestinal (Abdomen): normal bowel sounds, soft, nontender, no hepatosplenomegaly Musculoskeletal: Extremities: no cyanosis Skin: no rashes, warm and dry Neurologic: awake; not confused Results & Data Vital Signs (Past 12 Hours) Vital Signs Temp Pulse Pulse Resp BP Pulse Ox O2 Del Method 05/01/24 02:44 36.5 C 110 H 18 103/72 94 Room Air 04/30/24 23:25 114 H 04/30/24 22:58 36.7 C 105 H 18 108/75 92 Nasal Cannula O2 Flow Rate 05/01/24 02:44 04/30/24 23:25 04/30/24 22:58 2 Laboratory Results Laboratory Results - last 24 hr 04/30/24 04/30/24 04/30/24 10:46 16:22 20:22 WBC RBC Hgb Hct MCV MCH MCHC RDW Std Deviation RDW Coeff of Nick Plt Count MPV Absolute Nucleated RBC Nucleated RBC % (auto) Sodium Potassium 4.4 Chloride Carbon Dioxide Anion Gap BUN Creatinine Est Cr Clr Drug Dosing eGFR BUN/Creatinine Ratio Glucose POC Glucose 139 H 157 H Calcium Iron 38 Direct Bilirubin 0.9 H AST 27 05/01/24 05/01/24 05:44 07:17 WBC 8.58 RBC 3.66 L Hgb 8.9 L Hct 30.9 L MCV 84.4 MCH 24.3 L MCHC 28.8 L RDW Std Deviation 62.3 H RDW Coeff of Nick 21.5 H Plt Count 66 L MPV 11.4 Absolute Nucleated RBC 0.42 H Nucleated RBC % (auto) 4.9 Sodium 138 Potassium 4.9 Chloride 101 Carbon Dioxide 26 Anion Gap 11 BUN 48 H Creatinine 4.20 H D Est Cr Clr Drug Dosing 25.3 eGFR 14.47 BUN/Creatinine Ratio 11.4 Glucose 163 H POC Glucose 162 H Calcium 9.2 Iron Direct Bilirubin AST Laboratory Results WBC 8.58 K/ul (4.8-10.8) 05/01/24 05:44 RBC 3.66 M/uL (4.70-6.10) L 05/01/24 05:44 Hgb 8.9 g/dl (14.0-18.0) L 05/01/24 05:44 POC Hgb 9.9 g/dl (14.0-18.0) L 04/29/24 11:16 Hct 30.9 % (42.0-52.0) L 05/01/24 05:44 POC Hct 29 % (42-52) L 04/29/24 11:16 MCV 84.4 fL (80.0-100.0) 05/01/24 05:44 MCH 24.3 pg (25.0-34.0) L 05/01/24 05:44 MCHC 28.8 g/dL (32.0-36.0) L 05/01/24 05:44 RDW Std Deviation 62.3 fL (36.4-46.3) H 05/01/24 05:44 RDW Coeff of Nick 21.5 % (11.5-14.5) H 05/01/24 05:44 Plt Count 66 K/uL (130-400) L 05/01/24 05:44 MPV 11.4 fL (9.4-12.4) 05/01/24 05:44 Immature Gran % (Auto) 3.3 % 04/28/24 17:33 Neut % (Auto) 85.8 % 04/28/24 17:33 Lymph % (Auto) 7.9 % 04/28/24 17:33 [place] % (Auto) 2.8 % 04/28/24 17:33 Eos % (Auto) 0.1 % 04/28/24 17:33 Baso % (Auto) 0.1 % 04/28/24 17:33 Neut # (Auto) 9.76 K/uL (1.40-6.50) H 04/28/24 17:33 Lymph # (Auto) 0.90 K/uL (1.20-3.40) L 04/28/24 17:33 [place] # (Auto) 0.32 K/uL (0.11-0.59) 04/28/24 17:33 Eos # (Auto) 0.01 K/uL (0.00-0.50) 04/28/24 17:33 Baso # (Auto) 0.01 K/uL (0.00-0.20) 04/28/24 17:33 Immature Gran # (Auto) 0.37 K/uL (0.01-0.20) H 04/28/24 17:33 Absolute Nucleated RBC 0.42 K/uL (0.00-0.12) H 05/01/24 05:44 Nucleated RBC % (auto) 4.9 % 05/01/24 05:44 Polychromasia 2+ 04/28/24 17:33 Anisocytosis Present 04/28/24 17:33 PT 11.4 Seconds (9.0-12.0) 04/28/24 17:33 INR 1.1 (0.9-1.1) 04/28/24 17:33 APTT 33 Seconds (21-31) H 04/28/24 17: PTT Ratio 1.2 04/28/24 17:33 Specimen Type Arterial 04/29/24 11:16 POC pH 7.33 (7.35-7.45) L 04/29/24 11:16 POC pCO2 42 mmHg (35-46) 04/29/24 11:16 POC pO2 41 mmHg (80-95) L 04/29/24 11:16 POC HCO3 22 hiram/L (19-24) 04/29/24 11:16 POC Total CO2 23 mmol/L (24-31) L 04/29/24 11:16 POC Base Excess -4.0 hiram/L (-9-1.8) 04/29/24 11:16 POC ABG O2 Sat 73.0 % (90-95) L 04/29/24 11:16 VBG pH 7.37 (7.36-7.41) 04/28/24 17:33 VBG pCO2 39 mmHg (38-50) 04/28/24 17:33 VBG pO2 47 mmHg 04/28/24 17:33 VBG HCO3 23 mmol/L 04/28/24 17:33 VBG O2 Saturation 77.1 % 04/28/24 17:33 VBG Base Excess -2.5 mEq/L 04/28/24 17:33 POC FiO2 60 % 04/29/24 11:16 POC Sodium 132 mmol/L (135-144) L 04/29/24 11:16 Sodium 138 mmol/L (136-145) 05/01/24 05:44 POC Potassium 5.1 mmol/L (3.3-5.0) H 04/29/24 11:16 Potassium 4.9 mmol/L (3.5-5.1) 05/01/24 05:44 POC Chloride 99 mmol/L (101-112) L 04/28/24 17:48 Chloride 101 mmol/L (98-107) 05/01/24 05:44 Carbon Dioxide 26 mmol/L (21-32) 05/01/24 05:44 POC Total CO2 24 mmol/L (24-31) 04/28/24 17:48 Anion Gap 11 (3-11) 05/01/24 05:44 POC Anion Gap 16.0 mmol/L (16-25) 04/28/24 17:48 POC BUN 74 mg/dl (7-18) H 04/28/24 17:48 BUN 48 mg/dl (6-23) H 05/01/24 05:44 Creatinine 4.20 mg/dl (0.6-1.4) H D 05/01/24 05:44 POC Creatinine 6.3 mg/dl (0.6-1.3) H* 04/28/24 17:48 Est Cr Clr Drug Dosing 25.3 ml/min 05/01/24 05:44 eGFR 14.47 05/01/24 05:44 BUN/Creatinine Ratio 11.4 (10-20) 05/01/24 05:44 Glucose 163 mg/dl (70-99(Fasting)) H 05/01/24 05:44 POC Glucose 162 mg/dl (70-99) H 05/01/24 07:17 POC Glucose (other) 185 mg/dl (70-99) H 04/28/24 17:48 Lactate 2.3 mmol/L (0.4-2.0) H* 04/28/24 19:18 Calcium 9.2 mg/dl (8.6-10.3) 05/01/24 05:44 POC Ioniz Calcium [place] 1.12 mmol/l (1.12-1.32) 04/28/24 17:48 Magnesium 2.3 mg/dl (1.7-2.4) 04/28/24 17:33 Iron 38 mcg/dl (35-175) 04/30/24 10:46 TIBC 351 mcg/dl (250-450) 04/30/24 06:58 Transferrin 251 mg/dl (200-360) 04/30/24 06:58 Transferrin % Sat TNP 04/30/24 06:58 Ferritin 242.6 ng/ml (8-388) 04/30/24 06:58 Total Bilirubin 1.7 mg/dl (0.2-1.0) H 04/30/24 06:58 Direct Bilirubin 0.9 mg/dl (0-0.2) H 04/30/24 10:46 AST 27 U/L (13-39) 04/30/24 10:46 ALT 34 U/L (7-52) 04/30/24 06:58 Alkaline Phosphatase 167 U/L (34-104) H 04/30/24 06:58 Troponin I High Sens 92.3 pg/ml (0-20) H* D 04/28/24 19:18 Total Protein 5.5 gm/dl (6.0-8.3) L 04/30/24 06:58 Albumin 2.7 gm/dl (3.4-5.0) L 04/30/24 06:58 Globulin 2.7 gm/dl (2.5-4.0) 04/28/24 17:33 Albumin/Globulin Ratio 1.0 (0.9-2) 04/28/24 17:33 Procalcitonin 1.35 ng/ml (0-0.5) H 04/28/24 17:33 Urine Color Dark Yellow 04/28/24 18:52 Urine Appearance Clear (Clear) 04/28/24 18:52 Urine pH 5.0 (4.5-7.5) 04/28/24 18:52 Ur Specific [place] 1.018 (1.000-1.030) 04/28/24 18:52 Urine Protein 3+ (Negative) H 04/28/24 18:52 Urine Glucose (UA) Trace (Negative) H 04/28/24 18:52 Urine Ketones Trace (Negative) H 04/28/24 18:52 Urine Blood Negative (Negative) 04/28/24 18:52 Urine Nitrite Negative (Negative) 04/28/24 18:52 Urine Bilirubin 1+ (Negative) H 04/28/24 18:52 Urine Urobilinogen Negative (Negative) 04/28/24 18:52 Ur Leukocyte Esterase Negative (Negative) 04/28/24 18:52 Urine WBC (Auto) 0-5 /hpf (0-5) 04/28/24 18:52 Urine RBC (Auto) 0-2 /hpf (0-2) 04/28/24 18:52 U Hyaline Cast (Auto) 6-10 /lpf (0-2) H 04/28/24 18:52 U Epithel Cells (Auto) 0-2 /hpf (0-2) 04/28/24 18:52 Urine Bacteria (Auto) None Seen (None Seen) 04/28/24 18:52 Nasal Screen MRSA (PCR) Negative (Negative) 04/28/24 23:51 Adenovirus (PCR) Not Detected (NotDetected) 04/28/24 17:38 B. pertussis DNA (PCR) Not Detected (NotDetected) 04/28/24 17:38 B.parapertussis DNA PCR Not Detected (NotDetected) 04/28/24 17:38 C. pneumoniae DNA (PCR) Not Detected (NotDetected) 04/28/24 17:38 Coronavirus OC43 (PCR) Not Detected (NotDetected) 04/28/24 17:38 Coronavirus HKU1 (PCR) Not Detected (NotDetected) 04/28/24 17:38 Coronavirus 229E (PCR) Not Detected (NotDetected) 04/28/24 17:38 SARS-CoV-2 (PCR) Not Detected (NotDetected) 04/28/24 17:38 Coronavirus NL63 (PCR) Not Detected (NotDetected) 04/28/24 17:38 Human Metapneumovir PCR Not Detected (NotDetected) 04/28/24 17:38 Influenza Type A (PCR) Not Detected (NotDetected) 04/28/24 17:38 Influenza Type B (PCR) Not Detected (NotDetected) 04/28/24 17:38 M. pneumoniae (PCR) Not Detected (NotDetected) 04/28/24 17:38 Parainfluenza 1 (PCR) Not Detected (NotDetected) 04/28/24 17:38 Parainfluenza 2 (PCR) Not Detected (NotDetected) 04/28/24 17:38 Parainfluenza 3 (PCR) Not Detected (NotDetected) 04/28/24 17:38 Parainfluenza 4 (PCR) Not Detected (NotDetected) 04/28/24 17:38 RSV (PCR) Not Detected (NotDetected) 04/28/24 17:38 Entero/Rhino (PCR) DETECTED (NotDetected) A 04/28/24 17:[address] 04/28/24 16:47 EXAMINATION: Head CT without CLINICAL HISTORY: Weakness PRIORS: None TECHNIQUE: Contiguous axial images were obtained through the head without the use of intravenous contrast. Sagittal and coronal reformations are supplied. FINDINGS: Motion artifact degrades image quality. Moderate parenchymal volume loss noted. Quiñones-white differentiation is preserved. No edema or midline shift. No intra-axial or extra-axial hemorrhage. Ventricles are normal in size and configuration. Brainstem and cerebellum have a normal appearance. Calvarium unremarkable. Paranasal sinuses and mastoid air cells are well-pneumatized. Globes are intact. No retrobulbar abnormality. IMPRESSION: Moderate parenchymal volume loss with no CT evidence of an acute intracranial abnormality. Electronically signed by Indy 04-28-2024 6:25 PM Chest X-Ray 04/29/24 10:50 XR chest 1V portable CLINICAL HISTORY: resp distress COMPARISON STUDY: 04/28/2024 FINDINGS: Stable right dialysis catheter. Stable cardiomegaly with pulmonary vascular congestion. Stable hazy opacity in the lung bases with obscuration of the diaphragm. No pneumothorax. IMPRESSION: Stable exam with CHF and stable lung base opacity which could represent atelectasis, pneumonia, or small pleural effusions. ACT 112: Negative or not required by law. Electronically signed by: Alex Garcia M.D. 04/29/2024 11:03 AM PG Care Time/CCT Total # of Minutes Spent Total Time Spent with Patient: Total time spent is greater than 50% in coordination of care (as documented) at patient's floor/unit and/or counseling patient: Coding Level of Care Code 73988 SUB INP/OBS CARE 3/50MIN Diagnoses End stage renal disease on dialysis N18.6; Z99.2 Congestive heart failure (CHF) I50.9 Weakness R53.1
[2024-05-01] MEDS: dilTIAZem HCl 60 MG TAB PO SCH (13:00)
[2024-05-01] MEDS: BUMETANIDE 1 MG TAB PO SCH (13:26)
[2024-05-01] MEDS ORDERED: Nursing to Pharmacy Communication SCH (15:00)
--- NOTE | 2024-05-01 17:15 | Hospitalist Progress Note ---
Date of Service May 01, 2024 Assessment & Plan (1) Acute pulmonary edema: (2) Pneumonia: (3) Rhinovirus: (4) MARILEE (acute kidney injury): (5) Atrial fibrillation with rapid ventricular response: (6) Elevated troponin: Plan 68-year-old gentleman PMHx ESRD on dialysis (//), CHF, s/p TAVR, A-fib, RCC, HTN, hypercholesterolemia, hypothyroidism, and SARAH presenting to ED for BLE weakness starting on the day of arrival. Patient has renal cell carcinoma and recently started treatment and dialysis 2 weeks prior to arrival. mild leukocytosis of 11, UA negative for bacteria, BioFire positive for entero- /rhinovirus. CXR with pulmonary edema and new bilateral basilar infiltrates with small pleural effusion. Head CT without acute findings. EKG at arrival A- fib with RVR (112 bpm). Given 1 dose cefepime in ED. # acute hypoxic respiratory failure due to acute/flash pulmonary edema, acute on chronic diastolic heart failure - acute pulmonary edema was treated with continuous BiPAP, nitroglycerin, urgent dialysis with 3 L ultrafiltration on 04/29, dialysis again 04/30, 05/01 - hypoxia much improved now on minimal oxygen and lung exam has cleared - continues to have severe anasarca with weeping from skin, next dialysis planned Friday # rhinovirus/enterovirus infection - may be contributing to hypoxia and pulmonary infiltrates, supportive care # possible bibasilar bacterial pneumonia, very difficult to determine, procalcitonin slightly elevated but can be elevated due to renal failure/dialysis - completed 3 doses of azithromycin, change ceftriaxone to cefuroxime complete 5-day course # bilateral lower extremity weaknessinterestingly this has improved significantly following hemodialysis, he thinks that his leg edema was just so heavy he could not move his legs - monitor symptoms and exam - PT/OT eval #MARILEE/RCC/ESRD on HD Baseline creatinine (fall 2023) 3-3.5; with solitary L kidney; hemodialysis on //, did not receive HD on day of arrival as initially scheduled. Follows with Dr. Grijalva at [facility] for RCC, on Opdivo. Midodrine for hypotension. - consulted nephrology, dialysis as above - due for fistula to be placed 04/29/2023 but will need rescheduled - notified vascular surgery - continue midodrine because of hypotension with dialysis - monitor BMP, magnesium, Phos - BMP reviewed today, as expected and stable, K 4.9 #A-fib with RVR/Elevated troponin H/o Afib, on Eliquis. - Home medications metoprolol, diltiazem; Anticoagulated on Eliquis - continue these, expect improvement in rates with improvement in volume status. considered IV metoprolol prior to dialysis for rates in 120s, however, Discussed with psychologist educational he has hypotension with dialysis so we will just continue his oral medications. 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 Initially addressed on most recent hospital stay end of March 2023, but has increased since then. - No abdominal pain or GI symptoms, some tenderness to palpation of RUQ. - LFTs total bilirubin 2.0, alk phos 167 - Steroid course started- 04/28 started on 60 mg daily, continue for next 7 Days (through 05/04 or 05/05) - monitor LFTs - bilirubin improved to 1.7. Plt 66 stable today - AM LFT #Anemia- H/o microcytic anemia per last hospital stay, started on iron daily - iron studies reviewed, hemoglobin stable today at 8.9, transfusion not indicated at this time #Hypothyroidism- Levothyroxine #GERD- Pantoprazole held while on cefuroxime #SARAH- continue CPAP VTE prophylaxis: On Eliquis PT/OT rec rehab I updated his at the bedside 04/29, 04/30, 05/01 Admission and Anticipated Discharge Date Admission Date: April 28, 2024 Subjective is feeling better, he is no longer short of breath, he continues to have generalized weakness and fatigues easily, his skin has been weeping on the bed sheets because of edema however overall his edema has improved the last 48 hours, he did have dialysis today with 2.5 L ultrafiltration Physical Exam 2 Physical Exam: PHYSICAL EXAMINATION Last 24h vital signs reviewed, see documentation in flowsheet General: sitting up in bed awake HEENT: Normocephalic, atraumatic, pupils round and equal, sclerae anicteric, no conjunctival injection, moist mucus membranes Lungs: normal work of breathing, tubular breath sounds and diminished in right base otherwise clear Heart: tachycardic irregular, no murmurs. cannot see neck veins Abdomen: Soft, nontender, nondistended. Bowel sounds present. Extremities: Warm, dry, well-perfused. 3+ bilateral lower extremity edema. improved a little bit. he also has generalized anasarca including upper extremity edema which has definitely improved Neuro: Alert and oriented x 4, face symmetric, moves 4 extremities, his ability to move his legs is improved, he has generalized weakness Psych: Normal affect and behavior Results & Data Results & Data Vital Signs (Past 12 Hours) Vital Signs Temp Pulse Pulse Pulse Pulse Resp BP 05/01/24 16:31 98.1 F 121 H 18 05/01/24 15:09 05/01/24 14:00 121 H 05/01/24 13:05 97.5 F L 119 H 16 05/01/24 12:38 97.5 F L 119 H 05/01/24 12:00 134 H 105/88 05/01/24 11:30 130 H 97/75 L 05/01/24 11:00 121 H 103/70 05/01/24 10:30 113 H 104/75 05/01/24 10:00 110 H 111/77 05/01/24 09:30 118 H 125/82 05/01/24 09:21 97.5 F L 117 H 05/01/24 08:00 97.7 F 113 H 18 05/01/24 07:45 05/01/24 07:00 106 H BP Pulse Ox Pulse Ox Pulse Ox O2 Del Method O2 Flow Rate O2 Flow Rate 05/01/24 16:31 119/83 95 Nasal Cannula 2 05/01/24 15:09 96 95 2.5 05/01/24 14:00 05/01/24 13:05 112/79 96 Nasal Cannula 2 05/01/24 12:38 112/85 05/01/24 12:00 05/01/24 11:30 05/01/24 11:00 05/01/24 10:30 05/01/24 10:00 05/01/24 09:30 05/01/24 09:21 05/01/24 08:00 100/70 95 Nasal Cannula 2 05/01/24 07:45 Nasal Cannula 2 05/01/24 07:00 O2 Flow Rate 05/01/24 16:31 05/01/24 15:09 2.5 05/01/24 14:00 05/01/24 13:05 05/01/24 12:38 05/01/24 12:00 05/01/24 11:30 05/01/24 11:00 05/01/24 10:30 05/01/24 10:00 05/01/24 09:30 05/01/24 09:21 05/01/24 08:00 05/01/24 07:45 05/01/24 07:00 Laboratory Results 05/01/24 05:44 05/01/24 05:44 PG Care Time/CCT Total # of Minutes Spent Total Time Spent with Patient: Total time spent is greater than 50% in coordination of care (as documented) at patient's floor/unit and/or counseling patient: Coding Level of Care Code 81472 SUB INP/OBS CARE 2/35MIN Diagnoses Acute pulmonary edema J81.0 Pneumonia J18.9 Rhinovirus B34.8 MARILEE (acute kidney injury) N17.9 Atrial fibrillation with rapid ventricular response I48.91 Elevated troponin R79.89
[2024-05-02 06:25] LABS: Hematocrit (blood only) 29.8 % (42.0-52.0); Hemoglobin 8.7 g/dl (14.0-18.0); Mean Corpuscular Hemoglobin 24.6 pg (25.0-34.0); Mean Corpuscular Hgb Conc 29.2 g/dL (32.0-36.0); Mean Corpuscular Volume 84.4 fL (80.0-100.0); Nucleated RBC # (auto) 0.81 K/uL (0.00-0.12); Nucleated RBC % (auto) 8.6 %; Platelet Count 54 K/uL (130-400); RDW Coefficient of Variation 21.8 % (11.5-14.5); RDW Standard Deviation 62.5 fL (36.4-46.3); Red Blood Count 3.53 M/uL (4.70-6.10); White Blood Count 9.44 K/ul (4.8-10.8)
[2024-05-02 06:51] LABS: Albumin Level 2.7 gm/dl (3.4-5.0); BUN Creatinine Ratio 12.7 (10-20); Bilirubin Direct 0.7 mg/dl (0-0.2); Bilirubin,Total 1.4 mg/dl (0.2-1.0); Calcium 9.5 mg/dl (8.6-10.3); Creatinine Clr Calc Pharmacy 27.5 ml/min; Potassium 4.4 mmol/L (3.5-5.1); Total Protein 5.4 gm/dl (6.0-8.3)
[2024-05-02] MEDS: cefUROXime axetil 500 MG TAB PO SCH (08:05)
--- NOTE | 2024-05-02 09:35 | Nephrology Progress Note ---
Date of Service May 02, 2024 Assessment & Plan (1) End stage renal disease on dialysis: Plan: * Volume status improved. Will plan next HD for am * Oliguric. Continue Bumex 2mg po daily. If no improvement, will d/c loop diuretic * Outpatient orders: [facility] MWF 3.5hr F-180NR 3K 2.5Ca Na140 HCO3 34 EDW 157kg * Will need AVF scheduled as outpatient * Midodrine required due to chronic hypotension. 10 mg to be provided prior to HD. (2) Congestive heart failure (CHF): Plan: * UF with HD as tolerated. Rate control per hospitalist. (3) Weakness: Plan: * PT/OT not yet started * Likely will require rehab post discharge. Consider possible steroid induced myopathy? +entero/rhino virus. Admission and Anticipated Discharge Date Admission Date: April 28, 2024 Subjective Mr. Guadalupe was evaluated in his hospital room and later while on HD this morning. He was dialyzed yesterday for 2.7 L UF (total 9.2 L UF since admission). Although rhinovirus + he currently denies fever, cough, angina or uremic symptoms. Has been oliguric while on loop diuretic therapy Review of Systems Constitutional: no fever Eyes: no problem reported Ear, Nose, Mouth, Throat: no problem reported Respiratory: no cough and no dyspnea Cardiovascular: no chest pain Gastrointestinal: no abdominal pain, no nausea, no vomiting and no diarrhea/loose stools Integumentary: no rash Physical Exam Constitutional: not in distress Eyes: PERRL, conjunctivae normal, anicteric sclerae ENMT: external ear and nose normal, oropharynx normal Neck: trachea midline, no thyromegaly Respiratory: normal respiratory effort (Diminished breath sounds right base) Cardiovascular: RRR, no murmur, no edema Rate/Rhythm: + tachycardic Extremities: + edema (3+ dependent edema) Gastrointestinal (Abdomen): normal bowel sounds, soft, nontender, no hepatosplenomegaly Musculoskeletal: Extremities: no cyanosis Skin: no rashes, warm and dry Neurologic: awake; not confused Results & Data Vital Signs (Past 12 Hours) Vital Signs Temp Pulse Pulse Pulse Resp BP Pulse Ox 05/02/24 07:24 36.5 C 86 18 100/64 95 05/02/24 03:03 36.6 C 99 H 20 108/75 97 05/02/24 00:37 102 H 111/77 05/01/24 22:56 103 H 05/01/24 21:49 36.9 C 111 H 24 108/73 92 O2 Del Method O2 Flow Rate 05/02/24 07:24 Nasal Cannula 2 05/02/24 03:03 CPAP 05/02/24 00:37 05/01/24 22:56 05/01/24 21:49 Nasal Cannula 2 Laboratory Results Laboratory Results - last 24 hr 05/01/24 05/01/24 05/01/24 12:56 16:28 20:37 WBC RBC Hgb Hct MCV MCH MCHC RDW Std Deviation RDW Coeff of Nick Plt Count Absolute Nucleated RBC Nucleated RBC % (auto) Sodium Potassium Chloride Carbon Dioxide Anion Gap BUN Creatinine Est Cr Clr Drug Dosing eGFR BUN/Creatinine Ratio Glucose POC Glucose 123 H 135 H 136 H Calcium Total Bilirubin Direct Bilirubin AST ALT Alkaline Phosphatase Total Protein Albumin 05/02/24 05/02/24 05:31 07:16 WBC 9.44 RBC 3.53 L Hgb 8.7 L Hct 29.8 L MCV 84.4 MCH 24.6 L MCHC 29.2 L RDW Std Deviation 62.5 H RDW Coeff of Nick 21.8 H Plt Count 54 L Absolute Nucleated RBC 0.81 H Nucleated RBC % (auto) 8.6 Sodium 135 L Potassium 4.4 Chloride 98 Carbon Dioxide 25 Anion Gap 12 H BUN 49 H Creatinine 3.87 H D Est Cr Clr Drug Dosing 27.5 eGFR 15.96 BUN/Creatinine Ratio 12.7 Glucose 154 H POC Glucose 165 H Calcium 9.5 Total Bilirubin 1.4 H Direct Bilirubin 0.7 H AST 44 H ALT 45 Alkaline Phosphatase 223 H Total Protein 5.4 L Albumin 2.7 L PG Care Time/CCT Total # of Minutes Spent Total Time Spent with Patient: Total time spent is greater than 50% in coordination of care (as documented) at patient's floor/unit and/or counseling patient: Coding Level of Care Code 65907 SUB INP/OBS CARE 3/50MIN Diagnoses End stage renal disease on dialysis N18.6; Z99.2 Congestive heart failure (CHF) I50.9 Weakness R53.1
[2024-05-02] MEDS: NITROGLYCERIN SL 0.4 MG/TAB TAB ONE ×2 (13:54→14:09)
[2024-05-02] MEDS: NITROGLYCERIN SL 0.4 MG/TAB TAB SL STA (14:06)
--- NOTE | 2024-05-02 14:15 | XRay Report ---
EXAM: Radiograph of the Chest 1 View INDICATION: Hypoxia. TECHNIQUE: Frontal view of the chest. Image obtained at 2 PM. COMPARISON: 04/29/2024 FINDINGS: Lungs and pleural spaces: Increased airspace consolidation in the right lower lung with small right pleural effusion likely layering partially posteriorly. There is persistent but improved consolidation in the left lung base. There is improved vascular congestion. No pneumothorax. Heart: Stable cardiomegaly. Mediastinum: Normal contour. Bones/joints: No fracture, erosion or dislocation. Soft tissues: No abnormality noted. No radiopaque foreign body noted. Tubes, lines and devices: Right internal jugular central venous catheter tip in the mid superior vena cava. Upper abdomen: No abnormality noted. IMPRESSION: 1. Increased right lower airspace consolidation and layering pleural effusion. 2. Persistent but improved left base atelectasis and vascular congestion. 3. Lines and tubes as above. ACT 112: Negative or not required by law. Electronically signed by Shazia David 05-02-2024 2:15 PM
--- NOTE | 2024-05-02 15:08 | Nephrology Progress Note ---
Date of Service May 02, 2024 Assessment & Plan (1) End stage renal disease on dialysis: Plan: * Patient may have flash pulmonary edema. Will arrange HD today. Attempt 2-3 L UF * Oliguric. Continue Bumex 2mg po daily. If no improvement, will d/c loop diuretic * Outpatient orders: [facility] MWF 3.5hr F-180NR 3K 2.5Ca Na140 HCO3 34 EDW 157kg * Will need AVF scheduled as outpatient * Midodrine required due to chronic hypotension. 10 mg to be provided prior to HD. (2) Congestive heart failure (CHF): Plan: * CXR films reviewed. Possible worsening edema and R effusion despite aggres sive UF. HD today as noted above (3) Weakness: Plan: * PT/OT not yet started * Likely will require rehab post discharge. Consider possible steroid induced myopathy? +entero/rhino virus. Admission and Anticipated Discharge Date Admission Date: April 28, 2024 Subjective Mr. Guadalupe was evaluated in his hospital room this afternoon. He became acutely dyspneic and now requires bipap therapy. He reports that breathing is improved w/ bipap. He currently denies angina Review of Systems Respiratory: + dyspnea Cardiovascular: no chest pain Physical Exam Respiratory: Auscultation: + rales (bilaterally) Cardiovascular: Rate/Rhythm: + tachycardic and + irregularly irregular Extremities: + edema (3+ peripheral edema) Neurologic: awake Speech / Cognition: normal speech and normal cognition Results & Data Vital Signs (Past 12 Hours) Vital Signs Temp Pulse Pulse Pulse Resp BP Pulse Ox 05/02/24 14:29 100 H 24 97 05/02/24 14:00 136/76 96 05/02/24 13:44 91 H 134/83 92 05/02/24 13:00 100 H 05/02/24 11:13 36.7 C 91 H 20 131/82 90 05/02/24 08:05 05/02/24 07:24 36.5 C 86 18 100/64 95 05/02/24 07:00 88 O2 Del Method O2 Flow Rate FiO2 05/02/24 14:29 30 05/02/24 14:00 Oxymask 8 05/02/24 13:44 Oxymask 10 05/02/24 13:00 05/02/24 11:13 Nasal Cannula 2 05/02/24 08:05 Nasal Cannula 2 05/02/24 07:24 Nasal Cannula 2 05/02/24 07:00 Laboratory Results Laboratory Results WBC 9.44 K/ul (4.8-10.8) 05/02/24 05:31 RBC 3.53 M/uL (4.70-6.10) L 05/02/24 05:31 Hgb 8.7 g/dl (14.0-18.0) L 05/02/24 05:31 POC Hgb 9.9 g/dl (14.0-18.0) L 04/29/24 11:16 Hct 29.8 % (42.0-52.0) L 05/02/24 05:31 POC Hct 29 % (42-52) L 04/29/24 11:16 MCV 84.4 fL (80.0-100.0) 05/02/24 05:31 MCH 24.6 pg (25.0-34.0) L 05/02/24 05:31 MCHC 29.2 g/dL (32.0-36.0) L 05/02/24 05:31 RDW Std Deviation 62.5 fL (36.4-46.3) H 05/02/24 05:31 RDW Coeff of Nick 21.8 % (11.5-14.5) H 05/02/24 05:31 Plt Count 54 K/uL (130-400) L 05/02/24 05:31 MPV 11.4 fL (9.4-12.4) 05/01/24 05:44 Immature Gran % (Auto) 3.3 % 04/28/24 17:33 Neut % (Auto) 85.8 % 04/28/24 17:33 Lymph % (Auto) 7.9 % 04/28/24 17:33 [place] % (Auto) 2.8 % 04/28/24 17:33 Eos % (Auto) 0.1 % 04/28/24 17:33 Baso % (Auto) 0.1 % 04/28/24 17:33 Neut # (Auto) 9.76 K/uL (1.40-6.50) H 04/28/24 17:33 Lymph # (Auto) 0.90 K/uL (1.20-3.40) L 04/28/24 17:33 [place] # (Auto) 0.32 K/uL (0.11-0.59) 04/28/24 17:33 Eos # (Auto) 0.01 K/uL (0.00-0.50) 04/28/24 17:33 Baso # (Auto) 0.01 K/uL (0.00-0.20) 04/28/24 17:33 Immature Gran # (Auto) 0.37 K/uL (0.01-0.20) H 04/28/24 17:33 Absolute Nucleated RBC 0.81 K/uL (0.00-0.12) H 05/02/24 05: Nucleated RBC % (auto) 8.6 % 05/02/24 05: Polychromasia 2+ 04/28/24: Anisocytosis Present 04/28/24 17: PT 11.4 Seconds (9.0-12.0) 04/28/24 17: INR 1.1 (0.9-1.1) 04/28/24 17: APTT 33 Seconds (21-31) H 04/28/24 17: PTT Ratio 1.2 04/28/24 17:33 Specimen Type Arterial 04/29/24 11:16 POC pH 7.33 (7.35-7.45) L 04/29/24 11:16 POC pCO2 42 mmHg (35-46) 04/29/24 11:16 POC pO2 41 mmHg (80-95) L 04/29/24 11:16 POC HCO3 22 hiram/L (19-24) 04/29/24 11:16 POC Total CO2 23 mmol/L (24-31) L 04/29/24 11:16 POC Base Excess -4.0 hiram/L (-9-1.8) 04/29/24 11:16 POC ABG O2 Sat 73.0 % (90-95) L 04/29/24 11:16 VBG pH 7.37 (7.36-7.41) 04/28/24 17:33 VBG pCO2 39 mmHg (38-50) 04/28/24 17:33 VBG pO2 47 mmHg 04/28/24 17:33 VBG HCO3 23 mmol/L 04/28/24 17:33 VBG O2 Saturation 77.1 % 04/28/24 17:33 VBG Base Excess -2.5 mEq/L 04/28/24 17:33 POC FiO2 60 % 04/29/24 11:16 POC Sodium 132 mmol/L (135-144) L 04/29/24 11:16 Sodium 135 mmol/L (136-145) L 05/02/24 05:31 POC Potassium 5.1 mmol/L (3.3-5.0) H 04/29/24 11:16 Potassium 4.4 mmol/L (3.5-5.1) 05/02/24 05:31 POC Chloride 99 mmol/L (101-112) L 04/28/24 17:48 Chloride 98 mmol/L (98-107) 05/02/24 05:31 Carbon Dioxide 25 mmol/L (21-32) 05/02/24 05:31 POC Total CO2 24 mmol/L (24-31) 04/28/24 17:48 Anion Gap 12 (3-11) H 05/02/24 05:31 POC Anion Gap 16.0 mmol/L (16-25) 04/28/24 17:48 POC BUN 74 mg/dl (7-18) H 04/28/24 17:48 BUN 49 mg/dl (6-23) H 05/02/24 05:31 Creatinine 3.87 mg/dl (0.6-1.4) H D 05/02/24 05:31 POC Creatinine 6.3 mg/dl (0.6-1.3) H* 04/28/24 17:48 Est Cr Clr Drug Dosing 27.5 ml/min 05/02/24 05:31 eGFR 15.96 05/02/24 05:31 BUN/Creatinine Ratio 12.7 (10-20) 05/02/24 05:31 Glucose 154 mg/dl (70-99(Fasting)) H 05/02/24 05:31 POC Glucose 157 mg/dl (70-99) H 05/02/24 11:04 POC Glucose (other) 185 mg/dl (70-99) H 04/28/24 17:48 Lactate 2.3 mmol/L (0.4-2.0) H* 04/28/24 19:18 Calcium 9.5 mg/dl (8.6-10.3) 05/02/24 05:31 POC Ioniz Calcium Darlene 1.12 mmol/l (1.12-1.32) 04/28/24 17:48 Magnesium 2.3 mg/dl (1.7-2.4) 04/28/24 17:33 Iron 38 mcg/dl (35-175) 04/30/24 10:46 TIBC 351 mcg/dl (250-450) 04/30/24 06:58 Transferrin 251 mg/dl (200-360) 04/30/24 06:58 Transferrin % Sat TNP 04/30/24 06:58 Ferritin 242.6 ng/ml (8-388) 04/30/24 06:58 Total Bilirubin 1.4 mg/dl (0.2-1.0) H 05/02/24 05:31 Direct Bilirubin 0.7 mg/dl (0-0.2) H 05/02/24 05:31 AST 44 U/L (13-39) H 05/02/24 05:31 ALT 45 U/L (7-52) 05/02/24 05:31 Alkaline Phosphatase 223 U/L (34-104) H 05/02/24 05:31 Troponin I High Sens 92.3 pg/ml (0-20) H* D 04/28/24 19:18 Total Protein 5.4 gm/dl (6.0-8.3) L 05/02/24 05:31 Albumin 2.7 gm/dl (3.4-5.0) L 05/02/24 05:31 Globulin 2.7 gm/dl (2.5-4.0) 04/28/24 17:33 Albumin/Globulin Ratio 1.0 (0.9-2) 04/28/24 17:33 Procalcitonin 1.35 ng/ml (0-0.5) H 04/28/24 17:33 Urine Color Dark Yellow 04/28/24 18:52 Urine Appearance Clear (Clear) 04/28/24 18:52 Urine pH 5.0 (4.5-7.5) 04/28/24 18:52 Ur Specific [place] 1.018 (1.000-1.030) 04/28/24 18:52 Urine Protein 3+ (Negative) H 04/28/24 18:52 Urine Glucose (UA) Trace (Negative) H 04/28/24 18:52 Urine Ketones Trace (Negative) H 04/28/24 18:52 Urine Blood Negative (Negative) 04/28/24 18:52 Urine Nitrite Negative (Negative) 04/28/24 18:52 Urine Bilirubin 1+ (Negative) H 04/28/24 18:52 Urine Urobilinogen Negative (Negative) 04/28/24 18:52 Ur Leukocyte Esterase Negative (Negative) 04/28/24 18:52 Urine WBC (Auto) 0-5 /hpf (0-5) 04/28/24 18:52 Urine RBC (Auto) 0-2 /hpf (0-2) 04/28/24 18:52 U Hyaline Cast (Auto) 6-10 /lpf (0-2) H 04/28/24 18:52 U Epithel Cells (Auto) 0-2 /hpf (0-2) 04/28/24 18:52 Urine Bacteria (Auto) None Seen (None Seen) 04/28/24 18:52 Nasal Screen MRSA (PCR) Negative (Negative) 04/28/24 23:51 Adenovirus (PCR) Not Detected (NotDetected) 04/28/24 17:38 B. pertussis DNA (PCR) Not Detected (NotDetected) 04/28/24 17:38 B.parapertussis DNA PCR Not Detected (NotDetected) 04/28/24 17:38 C. pneumoniae DNA (PCR) Not Detected (NotDetected) 04/28/24 17:38 Coronavirus OC43 (PCR) Not Detected (NotDetected) 04/28/24 17:38 Coronavirus HKU1 (PCR) Not Detected (NotDetected) 04/28/24 17:38 Coronavirus 229E (PCR) Not Detected (NotDetected) 04/28/24 17:38 SARS-CoV-2 (PCR) Not Detected (NotDetected) 04/28/24 17:38 Coronavirus NL63 (PCR) Not Detected (NotDetected) 04/28/24 17:38 Human Metapneumovir PCR Not Detected (NotDetected) 04/28/24 17:38 Influenza Type A (PCR) Not Detected (NotDetected) 04/28/24 17:38 Influenza Type B (PCR) Not Detected (NotDetected) 04/28/24 17:38 M. pneumoniae (PCR) Not Detected (NotDetected) 04/28/24 17:38 Parainfluenza 1 (PCR) Not Detected (NotDetected) 04/28/24 17:38 Parainfluenza 2 (PCR) Not Detected (NotDetected) 04/28/24 17:38 Parainfluenza 3 (PCR) Not Detected (NotDetected) 04/28/24 17:38 Parainfluenza 4 (PCR) Not Detected (NotDetected) 04/28/24 17:38 RSV (PCR) Not Detected (NotDetected) 04/28/24 17:38 Entero/Rhino (PCR) DETECTED (NotDetected) A 04/28/24 17:[address] 04/28/24 16:47 EXAMINATION: Head CT without CLINICAL HISTORY: Weakness PRIORS: None TECHNIQUE: Contiguous axial images were obtained through the head without the use of intravenous contrast. Sagittal and coronal reformations are supplied. FINDINGS: Motion artifact degrades image quality. Moderate parenchymal volume loss noted. Quiñones-white differentiation is preserved. No edema or midline shift. No intra-axial or extra-axial hemorrhage. Ventricles are normal in size and configuration. Brainstem and cerebellum have a normal appearance. Calvarium unremarkable. Paranasal sinuses and mastoid air cells are well-pneumatized. Globes are intact. No retrobulbar abnormality. IMPRESSION: Moderate parenchymal volume loss with no CT evidence of an acute intracranial abnormality. Electronically signed by Indy 04-28-2024 6:25 PM Chest X-Ray 05/02/24 13:57 EXAM: Radiograph of the Chest 1 View INDICATION: Hypoxia. TECHNIQUE: Frontal view of the chest. Image obtained at 2 PM. COMPARISON: 04/29/2024 FINDINGS: Lungs and pleural spaces: Increased airspace consolidation in the right lower lung with small right pleural effusion likely layering partially posteriorly. There is persistent but improved consolidation in the left lung base. There is improved vascular congestion. No pneumothorax. Heart: Stable cardiomegaly. Mediastinum: Normal contour. Bones/joints: No fracture, erosion or dislocation. Soft tissues: No abnormality noted. No radiopaque foreign body noted. Tubes, lines and devices: Right internal jugular central venous catheter tip in the mid superior vena cava. Upper abdomen: No abnormality noted. IMPRESSION: 1. Increased right lower airspace consolidation and layering pleural effusion. 2. Persistent but improved left base atelectasis and vascular congestion. 3. Lines and tubes as above. ACT 112: Negative or not required by law. Electronically signed by Shazia David 05-02-2024 2:15 PM PG Care Time/CCT Total # of Minutes Spent Total Time Spent with Patient: Total time spent is greater than 50% in coordination of care (as documented) at patient's floor/unit and/or counseling patient: Coding Level of Care Code 10602 SUB INP/OBS CARE 3/50MIN Diagnoses End stage renal disease on dialysis N18.6; Z99.2 Congestive heart failure (CHF) I50.9 Weakness R53.1
[2024-05-02] MEDS: EPOETIN ALFA 10,000 UNITS/ML VIAL IV SCH ×2 (15:41→15:43)
--- NOTE | 2024-05-02 17:01 | Hospitalist Progress Note ---
Date of Service May 02, 2024 Assessment & Plan (1) Acute pulmonary edema: (2) Pneumonia: (3) Rhinovirus: (4) MARILEE (acute kidney injury): (5) Atrial fibrillation with rapid ventricular response: (6) Elevated troponin: Plan 68-year-old gentleman PMHx ESRD on dialysis (M/W/F), CHF, s/p TAVR, A-fib, RCC, HTN, hypercholesterolemia, hypothyroidism, and SARAH presenting to ED for BLE weakness starting on the day of arrival. Patient has renal cell carcinoma and recently started treatment and dialysis 2 weeks prior to arrival. mild leukocytosis of 11, UA negative for bacteria, BioFire positive for entero- /rhinovirus. CXR with pulmonary edema and new bilateral basilar infiltrates with small pleural effusion. Head CT without acute findings. EKG at arrival A- fib with RVR (112 bpm). Given 1 dose cefepime in ED. # acute hypoxic respiratory failure due to acute/flash pulmonary edema, acute on chronic diastolic heart failure - acute pulmonary edema was treated with continuous BiPAP, nitroglycerin, urgent dialysis with 3 L ultrafiltration on 04/29, dialysis again 04/30, 05/01 - hypoxia had virtually resolved and lung exam normalized (except for R base effusion) as of 05/01 - today 05/02 episode of recurrent acute hypoxic respiratory failure with no obvious trigger - personally reviewed CXR film - pulmonary edema similar to previous, R base more consolidated with increased effusion or infiltrate (suspect effusion), L base has cleared diaphragm now visible - suspect acute pulmonary edema based on rapid onset - also, identical thing happened earlier this week - started Bipap, gave a SL NTG - improved dyspnea and on 8L after that - discussed with Dr. Soto on phone and at bedside - short dialysis run this afternoon - if that is not effective consider other diagnoses, consider broadening ABX, consider PE (though on apixaban), consider aspiration - Right pleural effusion - consider R thoracentesis - may require heparin bridge, which is unappealing. # rhinovirus/enterovirus infection - may be contributing to hypoxia and pulmonary infiltrates, supportive care # possible bibasilar bacterial pneumonia, very difficult to determine, procalcitonin slightly elevated but can be elevated due to renal failure/dialysis - completed 3 doses of azithromycin, change ceftriaxone to cefuroxime complete 5-day course # bilateral lower extremity weaknessinterestingly this has improved significantly following hemodialysis, he thinks that his leg edema was just so heavy he could not move his legs - monitor symptoms and exam - PT/OT eval #MARILEE/RCC/ESRD on HD Baseline creatinine (fall 2023) 3-3.5; with solitary L kidney; hemodialysis on M/W/F, did not receive HD on day of arrival as initially scheduled. Follows with Dr. Grijalva at cancer care [facility] for RCC, on Opdivo. Midodrine for hypotension. - consulted nephrology, dialysis as above - due for fistula to be placed 04/29/2023 but will need rescheduled - notified vascular surgery - continue midodrine because of hypotension with dialysis - monitor BMP, magnesium, Phos - BMP reviewed today, unchanged K 4.4, Cr 3.87 #A-fib with RVR/Elevated troponin H/o Afib, on Eliquis. 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 Initially addressed on most recent hospital stay end of March 2023, but has increased since then. - No abdominal pain or GI symptoms, some tenderness to palpation of RUQ. - LFTs total bilirubin 2.0, alk phos 167 - Steroid course started- 04/28 started on 60 mg daily, continue for next 7 Days (through 05/04 or 05/05) - monitor LFTs - AST and Alk phos increased a little, bilirubin improved to 1.4! Plt 55 stable today - suspect there is a component of hepatic congestion from his heart failure and volume overload that is now improving on dialysis #Anemia- H/o microcytic anemia per last hospital stay, started on iron daily - iron studies reviewed, hemoglobin stable today at 8.7, transfusion not indicated at this time #Hypothyroidism- Levothyroxine #GERD- Pantoprazole held while on cefuroxime #SARAH- continue CPAP VTE prophylaxis: On Eliquis PT/OT rec rehab I updated his at the bedside daily including 05/02 Admission and Anticipated Discharge Date Admission Date: April 28, 2024 Ana Stone was doing really well early this morning and was on 2L pnc, ate breakfast, coughed all morning, late morning had abrupt onset of dyspnea and hypoxia requiring 10L facemask oxygen He and his don't notice any choking or aspirating with eating, though eating is currently a lot of exertion for him HR around 100 and SBP 135/90 No chest pain Physical Exam 2 Physical Exam: PHYSICAL EXAMINATION Last 24h vital signs reviewed, see documentation in flowsheet General:awake sitting upright in bed in respiratory distress though not as bad as earlier this week HEENT: Normocephalic, atraumatic, pupils round and equal, sclerae anicteric, no conjunctival injection, moist mucus membranes Lungs: labored breathing, tachypneic, coarse sounding crackles throughout all lung petty bilaterally posteriorly Heart: mildly regular, no murmurs. cannot see neck veins Abdomen: Soft, nontender, nondistended. Bowel sounds present. Extremities: Warm, dry, well-perfused. 3+ bilateral lower extremity edema. improved a little bit. he also has generalized anasarca including upper extremity edema which has definitely improved Neuro: Alert and oriented x 4, face symmetric, moves 4 extremities, his ability to move his legs is improved, he has generalized weakness Psych: Normal affect and behavior Results & Data Results & Data Vital Signs (Past 12 Hours) Vital Signs Temp Pulse Pulse Pulse Resp BP BP 05/02/24 16:30 107 H 119/55 L 05/02/24 16:00 98 H 114/95 05/02/24 15:36 98 H 125/89 05/02/24 15:25 97.7 F 100 H 05/02/24 14:29 100 H 24 05/02/24 14:00 136/76 05/02/24 13:44 91 H 134/83 05/02/24 13:00 100 H 05/02/24 11:13 98.1 F 91 H 20 131/82 05/02/24 08:05 05/02/24 07:24 97.7 F 86 18 100/64 05/02/24 07:00 88 Pulse Ox O2 Del Method O2 Flow Rate FiO2 05/02/24 16:30 05/02/24 16:00 05/02/24 15:36 05/02/24 15:25 05/02/24 14:29 97 30 05/02/24 14:00 96 Oxymask 8 05/02/24 13:44 92 Oxymask 10 05/02/24 13:00 05/02/24 11:13 90 Nasal Cannula 2 05/02/24 08:05 Nasal Cannula 2 05/02/24 07:24 95 Nasal Cannula 2 05/02/24 07:00 Laboratory Results 05/02/24 05:31 05/02/24 05:31 PG Care Time/CCT Total # of Minutes Spent Total Time Spent with Patient: Total time spent is greater than 50% in coordination of care (as documented) at patient's floor/unit and/or counseling patient: Coding Level of Care Code 25104 SUB INP/OBS CARE 3/50MIN Diagnoses Acute pulmonary edema J81.0 Pneumonia J18.9 Rhinovirus B34.8 MARILEE (acute kidney injury) N17.9 Atrial fibrillation with rapid ventricular response I48.91 Elevated troponin R79.89
--- NOTE | 2024-05-03 08:53 | Nephrology Progress Note ---
Date of Service May 03, 2024 Assessment & Plan (1) End stage renal disease on dialysis: Plan: * Patient dialyzed yesterday for 2.5 L UF due to flash pulmonary edema * Will provide HD today and attempt additional 3 L UF * Clinically patient remains volume overloaded * SBP 90's may limit UF. Will dialyze using Crit-line monitor * Oliguric. Will stop bumex * Outpatient orders: [facility] Dany MWF 3.5hr F-180NR 3K 2.5Ca Na140 HCO3 34 EDW 157kg * Will need AVF scheduled as outpatient * Midodrine required due to chronic hypotension. 10 mg to be provided prior to HD. (2) Congestive heart failure (CHF): Plan: * 04/17/24 echocardiogram: LVEF 60-65%, mod LVH, mild MR (3) Weakness: Plan: * PT/OT not yet started * Likely will require rehab post discharge. Consider possible steroid induced myopathy? +entero/rhino virus. Admission and Anticipated Discharge Date Admission Date: April 28, 2024 Subjective Mr. Guadalupe was evaluated prior to HD this morning. He was dialyzed yesterday for 2.5 L UF (total 11.7 L UF since admission). Although rhinovirus + he currently denies fever, cough, angina or uremic symptoms. Has been oliguric while on loop diuretic therapy Review of Systems Constitutional: no fever Eyes: no problem reported Ear, Nose, Mouth, Throat: no problem reported Respiratory: + dyspnea Cardiovascular: no chest pain Gastrointestinal: no abdominal pain, no nausea, no vomiting and no diarrhea/loose stools Integumentary: no rash Physical Exam Constitutional: not in distress Eyes: PERRL, conjunctivae normal, anicteric sclerae ENMT: external ear and nose normal, oropharynx normal Neck: trachea midline, no thyromegaly Respiratory: normal respiratory effort (Diminished breath sounds right base) Auscultation: + rales (bilaterally) Cardiovascular: Rate/Rhythm: + irregularly irregular Extremities: + edema (3+ peripheral edema) Gastrointestinal (Abdomen): normal bowel sounds, soft, nontender, no hepatosplenomegaly Musculoskeletal: Extremities: no cyanosis Skin: no rashes, warm and dry Neurologic: awake; not confused Speech / Cognition: normal speech and normal cognition Results & Data Vital Signs (Past 12 Hours) Vital Signs Temp Pulse Pulse Pulse Resp BP Pulse Ox 05/03/24 06:56 36.8 C 90 20 119/78 98 05/03/24 03:12 36.7 C 82 19 104/59 L 100 05/03/24 02:30 103 H 22 99 05/03/24 00:10 87 116/72 05/02/24 23:00 94 H 05/02/24 22:38 36.7 C 104 H 21 104/74 100 O2 Del Method O2 Flow Rate FiO2 05/03/24 06:56 Nasal Cannula 2 05/03/24 03:12 BiPAP 05/03/24 02:30 30 05/03/24 00:10 05/02/24 23:00 05/02/24 22:38 Oxymask 5 PG Care Time/CCT Total # of Minutes Spent Total Time Spent with Patient: Total time spent is greater than 50% in coordination of care (as documented) at patient's floor/unit and/or counseling patient: Coding Level of Care Code 48178 SUB INP/OBS CARE 3/50MIN Diagnoses End stage renal disease on dialysis N18.6; Z99.2 Congestive heart failure (CHF) I50.9 Weakness R53.1
[2024-05-03 10:38] LABS: BUN Creatinine Ratio 12.2 (10-20); Calcium 9.3 mg/dl (8.6-10.3); Creatinine Clr Calc Pharmacy 23.6 ml/min; Potassium 4.2 mmol/L (3.5-5.1)
[2024-05-03 10:56] LABS: Hematocrit (blood only) 31.1 % (42.0-52.0); Hemoglobin 8.9 g/dl (14.0-18.0); Mean Corpuscular Hemoglobin 24.9 pg (25.0-34.0); Mean Corpuscular Hgb Conc 28.6 g/dL (32.0-36.0); Mean Corpuscular Volume 86.9 fL (80.0-100.0); Nucleated RBC # (auto) 1.07 K/uL (0.00-0.12); Nucleated RBC % (auto) 9.6 %; Platelet Count 42 K/uL (130-400); Platelet Estimate Decreased (Normal); RDW Coefficient of Variation 22.1 % (11.5-14.5); RDW Standard Deviation 65.7 fL (36.4-46.3); Red Blood Count 3.58 M/uL (4.70-6.10); White Blood Count 11.09 K/ul (4.8-10.8)
[2024-05-03 10:57] LABS: Ferritin 221.1 ng/ml (8-388)
--- NOTE | 2024-05-03 19:50 | Hospitalist Progress Note ---
Date of Service May 03, 2024 Assessment & Plan (1) Acute pulmonary edema: (2) Pneumonia: (3) Rhinovirus: (4) MARILEE (acute kidney injury): (5) Atrial fibrillation with rapid ventricular response: (6) Elevated troponin: Plan 68-year-old gentleman PMHx ESRD on dialysis (M/W/F), CHF, s/p TAVR, A-fib, RCC, HTN, hypercholesterolemia, hypothyroidism, and SARAH presenting to ED for BLE weakness starting on the day of arrival. Patient has renal cell carcinoma and recently started treatment and dialysis 2 weeks prior to arrival. mild leukocytosis of 11, UA negative for bacteria, BioFire positive for entero- /rhinovirus. CXR with pulmonary edema and new bilateral basilar infiltrates with small pleural effusion. Head CT without acute findings. EKG at arrival A- fib with RVR (112 bpm). Given 1 dose cefepime in ED. # acute hypoxic respiratory failure due to acute/flash pulmonary edema in ED AM after admission, acute on chronic diastolic heart failure. Recurrent acute pulmonary edema on 05/02. - acute pulmonary edema was treated with continuous BiPAP, nitroglycerin, urgent dialysis with 3 L ultrafiltration on 04/29, dialysis again 04/30, 05/01 - hypoxia had virtually resolved and lung exam normalized (except for R base effusion) as of 05/01 - 05/02 episode of recurrent acute hypoxic respiratory failure with no obvious trigger. Treated with Bipap and urgent dialysis - Had HD this morning and lungs are clear, respiratory status good - # possible bibasilar bacterial pneumonia - completed 3 doses of azithromycin, ceftriaxone which was changed to cefadroxil po - procal mildly elevated on admission apx 1.5 - could be from renal failure or malignancy however - CXR 05/02 with improvement/resolution of L base opacities but increased consolidation in R base - 05/03 with new leukocytosis (has been on prednisone throughout) and procal significantly elevated to >4 - 05/03 stopped cefadroxil and started pip-tazo to cover HAP # Right pleural effusion - considered R thoracentesis, however dyspnea/hypoxia resolved with dialysis. Would have to stop apixaban, consider heparin bridge, also thrombocytopenic so higher risk of bleeding - deferring for now # rhinovirus/enterovirus infection - may have contributed to hypoxia and pulmonary infiltrates, supportive care, seems resolved clinically # bilateral lower extremity weaknessinterestingly this has improved significantly following hemodialysis, he thinks that his leg edema was just so heavy he could not move his legs - agree with Dr. Soto, could be steroid myopathy as well - monitor symptoms and exam - PT/OT rec rehab #MARILEE/RCC/ESRD on HD Baseline creatinine (fall 2023) 3-3.5; with solitary L kidney; hemodialysis on M/W/F, did not receive HD on day of arrival as initially scheduled. Follows with Dr. Grijalva at cancer care center [facility] for RCC, on Opdivo. Midodrine for hypotension. - consulted nephrology, dialysis as above - due for fistula to be placed 04/29/2023 but will need rescheduled - notified vascular surgery - continue midodrine because of hypotension with dialysis - monitor BMP, magnesium, Phos - BMP reviewed today, Cr 4.5, potassium normal #A-fib with RVR/Elevated troponin H/o Afib, on Eliquis. 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 Initially addressed on most recent hospital stay end of March 2023, but has increased since then. - No abdominal pain or GI symptoms, some tenderness to palpation of RUQ. - LFTs total bilirubin 2.0, alk phos 167 - Steroid course started- 04/28 started on 60 mg daily, continue for next 7 Days (through 05/04 or 05/05) - monitor LFTs - 05/02 AST and Alk phos increased a little, bilirubin improved to 1.4! Stable thrombocytopenia - suspect there is a component of hepatic congestion from his heart failure and volume overload that is now improving on dialysis #Anemia- H/o microcytic anemia per last hospital stay, started on iron daily - iron studies reviewed, hemoglobin stable today at 8.9, transfusion not indicated at this time #Hypothyroidism- Levothyroxine #GERD- Pantoprazole held while on cefuroxime, resumed #SARAH- continue CPAP VTE prophylaxis: On Eliquis PT/OT rec rehab - [facility] volume/respiratory status stable I updated his at the bedside daily including 05/02, 05/03 Admission and Anticipated Discharge Date Admission Date: April 28, 2024 Subjective Shortness of breath and acute hypoxia did resolve after HD yesterday afternoon. I saw him after HD this AM his breathing is pretty good now. Leg edema is a lot better than last week, no longer weeping Physical Exam 2 Physical Exam: PHYSICAL EXAMINATION Last 24h vital signs reviewed, see documentation in flowsheet General: awake sitting up in bed looks much better today HEENT: Normocephalic, atraumatic, pupils round and equal, sclerae anicteric, no conjunctival injection, moist mucus membranes Lungs: comfortable WOB, absent breath sounds R base, otherwise CTAB Heart: mildly tachycardic irregular, no murmurs. cannot see neck veins. R chest HD tunneled line Abdomen: Soft, nontender, nondistended. Bowel sounds present. Extremities: Warm, dry, well-perfused. 2-3+ bilateral lower extremity edema. significant improvement. Neuro: Alert and oriented x 4, face symmetric, moves 4 extremities, his ability to move his legs is improved, he has generalized weakness Psych: Normal affect and behavior Results & Data Results & Data Vital Signs (Past 12 Hours) Vital Signs Temp Pulse Pulse Pulse Pulse Resp BP 05/03/24 14:51 97.9 F 103 H 18 05/03/24 14:18 103 H 05/03/24 13:45 97.7 F 113 H 05/03/24 13:30 115 H 107/65 05/03/24 13:00 110 H 94/77 L 05/03/24 12:30 112 H 93/69 L 05/03/24 12:00 110 H 84/62 L 05/03/24 11:30 112 H 87/68 L 05/03/24 11:00 112 H 84/65 L 05/03/24 10:53 86 05/03/24 10:45 05/03/24 10:30 105 H 90/65 L 05/03/24 10:10 93 H 88/65 L 05/03/24 10:00 84 85/60 L 05/03/24 09:38 79 93/64 L 05/03/24 09:30 97.7 F 80 BP Pulse Ox O2 Del Method O2 Flow Rate 05/03/24 14:51 103/76 98 Nasal Cannula 05/03/24 14:18 05/03/24 13:45 102/73 05/03/24 13:30 05/03/24 13:00 05/03/24 12:30 05/03/24 12:00 05/03/24 11:30 05/03/24 11:00 05/03/24 10:53 05/03/24 10:45 Nasal Cannula 2 05/03/24 10:30 05/03/24 10:10 05/03/24 10:00 05/03/24 09:38 05/03/24 09:30 Laboratory Results 05/03/24 09:40 05/03/24 09:40 PG Care Time/CCT Total # of Minutes Spent Total Time Spent with Patient: Total time spent is greater than 50% in coordination of care (as documented) at patient's floor/unit and/or counseling patient: Coding Level of Care Code 80501 SUB INP/OBS CARE 3/50MIN Diagnoses Acute pulmonary edema J81.0 Pneumonia J18.9 Rhinovirus B34.8 MARILEE (acute kidney injury) N17.9 Atrial fibrillation with rapid ventricular response I48.91 Elevated troponin R79.89
[2024-05-03] MEDS: PIPERACILLIN/TAZOBACTAM 4.5 GM/100 ML BAG IV STA (20:35)
[2024-05-03] MEDS: dilTIAZem HCL 30 MG TAB PO SCH (23:46)
[2024-05-04] MEDS: PIPERACILLIN/TAZOBACTAM 4.5 GM/100 ML BAG IV SCH (03:12)
--- NOTE | 2024-05-04 08:42 | Nephrology Progress Note ---
Date of Service May 04, 2024 Assessment & Plan (1) End stage renal disease on dialysis: Plan: * Will provide HD today and attempt additional 3 L UF * Volume status has improved but patient remains clinically volume overloaded w/ 2+ pretibial and arm edema * SBP low 100's may limit UF. Will dialyze using Crit-line monitor * Bumex stopped due to oliguria * Outpatient orders: [facility] Dany MWF 3.5hr F-180NR 3K 2.5Ca Na140 HCO3 34 EDW 157kg * Will need AVF scheduled as outpatient * Midodrine required due to chronic hypotension. 10 mg to be provided prior to HD. (2) Congestive heart failure (CHF): Plan: * 04/17/24 echocardiogram: LVEF 60-65%, mod LVH, mild MR (3) Weakness: Plan: * PT/OT not yet started * Likely will require rehab post discharge. Consider possible steroid induced myopathy? +entero/rhino virus. Admission and Anticipated Discharge Date Admission Date: April 28, 2024 Subjective Mr. Guadalupe was evaluated prior to HD this morning. He was dialyzed yesterday for 2.4 L UF (total 14.1 L UF since admission). Although rhinovirus + he currently denies fever, cough, angina or uremic symptoms. Breathing is subjectively improved. Patient still c/o LE edema Review of Systems Constitutional: no fever Eyes: no problem reported Ear, Nose, Mouth, Throat: no problem reported Respiratory: no dyspnea Cardiovascular: no chest pain Gastrointestinal: no abdominal pain, no nausea, no vomiting and no diarrhea/loose stools Integumentary: no rash Physical Exam Constitutional: not in distress Eyes: PERRL, conjunctivae normal, anicteric sclerae ENMT: external ear and nose normal, oropharynx normal Neck: trachea midline, no thyromegaly (IJ TCC w/ clean dry dressing) Respiratory: normal respiratory effort (Diminished breath sounds right base) Auscultation: lungs clear to auscultation bilaterally Cardiovascular: RRR, no murmur, no edema Rate/Rhythm: + tachycardic and + irregularly irregular Extremities: + edema (2+ peripheral edema) Gastrointestinal (Abdomen): normal bowel sounds, soft, nontender, no hepatosplenomegaly Musculoskeletal: Extremities: no cyanosis Skin: no rashes, warm and dry Neurologic: awake; not confused Speech / Cognition: normal speech and normal cognition Results & Data Vital Signs (Past 12 Hours) Vital Signs Temp Pulse Pulse Resp BP Pulse Ox O2 Del Method 05/04/24 07:22 36.7 C 94 H 20 108/72 98 Nasal Cannula 05/04/24 07:17 88 05/04/24 06:02 88 107/70 05/04/24 02:39 36.8 C 100 H 19 108/74 98 CPAP 05/03/24 23:13 36.6 C 106 H 21 98/69 L 97 Nasal Cannula 05/03/24 22:00 96 H O2 Flow Rate 05/04/24 07:22 2 05/04/24 07:17 05/04/24 06:02 05/04/24 02:39 2 05/03/24 23:13 2 05/03/24 22:00 PG Care Time/CCT Total # of Minutes Spent Total Time Spent with Patient: Total time spent is greater than 50% in coordination of care (as documented) at patient's floor/unit and/or counseling patient: Coding Level of Care Code 42695 SUB INP/OBS CARE 3/50MIN Diagnoses End stage renal disease on dialysis N18.6; Z99.2 Congestive heart failure (CHF) I50.9 Weakness R53.1
--- NOTE | 2024-05-04 19:23 | Hospitalist Progress Note ---
Date of Service May 04, 2024 Assessment & Plan (1) End stage renal disease on dialysis: Plan: 68yo male - recent initiation of dialysis (M/W/F) for development of ESRD 03/2024, solitary kidney status (previous right nephrectomy for renal cell ca), A-fib, stage 4 renal cell cancer previously on Opdivo, HTN, hypercholesterolemia, hypothyroidism, and SARAH. Presented 04/28/24 with b/l leg weakness. BioFire positive for entero- /rhinovirus. CXR with pulmonary edema and new bilateral basilar infiltrates with small pleural effusion. Since admission has had 6 serial HD sessions due to severe volume overload. Appreciate [facility] [place] [facility] [place] for HD needs. Defer timing of next session to nephrology. BMP am. continue midodrine to prevent intra-HD hypotension. (2) Acute pulmonary edema: Plan: 2nd to #1 cont serial HD sessions for volume control overall volume status markedly improved (3) Acute hypoxic respiratory failure: Plan: multifactorial - pulmonary edema from ESRD status, rhinovirus infection, +/- pneumonia treating individual components stable on NC O2 during the day CPAP with sleep (4) Pneumonia: Plan: suspected b/l basilar could be viral pneumonia 2nd to rhinovirus could be bacterial superinfection early in admission --> received rocephin/zithromax then changed to cefadroxil 05/02 and 05/03 --> worsening respiratory status procal 4 on 05/03 in light of rising procalcitonin and worsening respiratory status abx changed to IV zosyn on 05/03 cont for now (5) Rhinovirus: Plan: droplet precautions supportive care (6) MARILEE (acute kidney injury): Plan: 03/2024 with ultimate need for HD see #1 above (7) Atrial fibrillation with rapid ventricular response: Plan: continues with less than optimal rate control despite meto succ BID + cardizem 30mg Q6h scheduled monitor rates cont Eliquis 2.5mg BID if rate control proves difficult - and if low BPs limit titration of AV maggie agents - reconsult cardiology for assistance (8) Elevated troponin: Plan: peak HS trop 103 early in the admission no evidence of ACS likely myocardial demand ischemia in setting of volume overload from #1, rapid a.fib, rhinovirus infection, ?pneumonia, etc. 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 2nd to hepatic congestion from volume overload? other? recheck LFTs am for stability (12) Morbid obesity with BMI of 40.0-44.9, adult: Plan: BMI 40 (13) Thrombocytopenia: Plan: 40s to 70s range while here without bleeding no indication for transfusion B12/folate levels wnl recheck CBC w/ diff in am 2nd to Opdivo? 2nd to liver dysfunction? combination of factors? (14) Renal cell carcinoma: Plan: stage 4 h/o right nephrectomy due to RCC follows with Dr Grijalva - cancer care clinic Plan VTE prophylaxis - Eliquis 2.5mg BID cont PT/OT rehab advised - [facility] ? updated at bedside today, 05/04 Admission and Anticipated Discharge Date Admission Date: April 28, 2024 Subjective had 2.4 L of UF removed during HD today today was his 6th HD session in a row for volume overload following the HD session he reported feeling tired appetite fair no dyspnea at rest, but has mild dyspnea on any exertion some cough tele - a.fib at bedside during the visit Review of Systems Review of Systems: gen - no fevers or chills cv - no chest pain pulm - had had a few tiny streaks of blood in sputum a few days ago - now resolved GI - no N/V; last stool - 05/01/24 Physical Exam Physical Exam: gen - morbidly obese, NAD, laying in bed neck - probable JVD mouth - MMM, no thrush, mild hoarse voice heart - irregularly irregular, s1 s2, 2/6 systolic murmur LSB lungs - decreased BS b/l bases, no rales, no wheeze, no increased work of breathing abd - soft NT ND BS+ ext - 2+ pitting edema from feet to just below the knees; pulses b/l feet 2+ psych - a/o x 3 skin - numerous optifoams b/l arms; b/l mcclellan optifoams in place; underlying venous ulcers on shins clean, no cellulitis vascular - right upper chest HD catheter clean Results & Data Results & Data Vital Signs (Past 12 Hours) Vital Signs Temp Pulse Pulse Pulse Resp BP BP 05/04/24 16:08 36.7 C 104 H 20 107/76 05/04/24 13:20 36.9 C 112 H 95/65 L 05/04/24 13:00 126 H 97/57 L 05/04/24 12:30 120 H 97/57 L 05/04/24 12:00 116 H 93/71 L 05/04/24 11:40 118 H 83/72 L 05/04/24 11:30 115 H 77/62 L 05/04/24 11:00 116 H 92/67 L 05/04/24 10:44 05/04/24 10:30 118 H 92/70 L 05/04/24 10:00 112 H 90/52 L 05/04/24 09:36 109 H 107/73 05/04/24 09:29 36.5 C 104 H Pulse Ox O2 Del Method O2 Flow Rate 05/04/24 16:08 97 Nasal Cannula 2 05/04/24 13:20 05/04/24 13:00 05/04/24 12:30 05/04/24 12:00 05/04/24 11:40 05/04/24 11:30 05/04/24 11:00 05/04/24 10:44 Nasal Cannula 2 05/04/24 10:30 05/04/24 10:00 05/04/24 09:36 05/04/24 09:29 Laboratory Results Laboratory Results - last 24 hr 05/03/24 05/04/24 05/04/24 20:34 07:21 13:32 POC Glucose 129 H 144 H 168 H 05/04/24 16:04 POC Glucose 164 H PG Care Time/CCT Total # of Minutes Spent Total Time Spent with Patient: Total time spent is greater than 50% in coordination of care (as documented) at patient's floor/unit and/or counseling patient: Coding Level of Care Code 62563 SUB INP/OBS CARE 3/50MIN Diagnoses End stage renal disease on dialysis N18.6; Z99.2 Acute pulmonary edema J81.0 Acute hypoxic respiratory failure J96.01 Pneumonia J18.9 Rhinovirus B34.8 MARILEE (acute kidney injury) N17.9 Atrial fibrillation with rapid ventricular response I48.91 Elevated troponin R79.89 SARAH (obstructive sleep apnea) G47.33 Hypothyroidism E03.9 Autoimmune hepatitis treated with steroids K75.4 Morbid obesity with BMI of 40.0-44.9, adult E66.01; Z68.41 Thrombocytopenia D69.6 Renal cell carcinoma C64.9
--- NOTE | 2024-05-05 08:35 | Nephrology Progress Note ---
Date of Service May 05, 2024 Assessment & Plan (1) End stage renal disease on dialysis: Plan: * Will provide HD today and attempt additional 3 L UF * Volume status has improved but patient remains clinically volume overloaded w/ 2+ pretibial and arm edema * SBP low 100's may limit UF. Will dialyze using Crit-line monitor * Bumex stopped due to oliguria * Outpatient orders: [facility] MWF 3.5hr F-180NR 3K 2.5Ca Na140 HCO3 34 EDW 157kg * Will need AVF scheduled as outpatient * Midodrine required due to chronic hypotension. 10 mg to be provided prior to HD. (2) Congestive heart failure (CHF): Plan: * 04/17/24 echocardiogram: LVEF 60-65%, mod LVH, mild MR (3) Weakness: Plan: * PT/OT not yet started * Likely will require rehab post discharge. Consider possible steroid induced myopathy? +entero/rhino virus. Admission and Anticipated Discharge Date Admission Date: April 28, 2024 Subjective Mr. Guadalupe was evaluated prior to HD this morning. He was dialyzed yesterday for 2.4 L UF (total 16.5 L UF since admission). Although rhinovirus + he currently denies fever, cough, angina or uremic symptoms. Breathing is subjectively improved. Patient still c/o LE edema Review of Systems Constitutional: no fever Eyes: no problem reported Ear, Nose, Mouth, Throat: no problem reported Respiratory: no dyspnea Cardiovascular: no chest pain Gastrointestinal: no abdominal pain, no nausea, no vomiting and no diarrhea/loose stools Integumentary: no rash Physical Exam Constitutional: not in distress Eyes: PERRL, conjunctivae normal, anicteric sclerae ENMT: external ear and nose normal, oropharynx normal Neck: trachea midline, no thyromegaly (IJ TCC w/ clean dry dressing) Respiratory: normal respiratory effort (Diminished breath sounds right base) Auscultation: lungs clear to auscultation bilaterally and + rales (bilaterally) Cardiovascular: RRR, no murmur, no edema Rate/Rhythm: + tachycardic and + irregularly irregular Extremities: + edema (2+ peripheral edema) Gastrointestinal (Abdomen): normal bowel sounds, soft, nontender, no hepatosplenomegaly Musculoskeletal: Extremities: no cyanosis Skin: no rashes, warm and dry Neurologic: awake; not confused Speech / Cognition: normal speech and normal cognition Results & Data Vital Signs (Past 12 Hours) Vital Signs Temp Pulse Pulse Resp BP Pulse Ox O2 Del Method 05/05/24 07:35 Nasal Cannula 05/05/24 07:23 36.5 C 109 H 19 100/71 99 Nasal Cannula 05/05/24 06:35 102 H 105/73 05/05/24 04:27 36.7 C 104 H 20 107/78 96 BiPAP 05/05/24 03:38 116 H 05/05/24 00:11 99 H 96/59 L 05/04/24 23:30 36.7 C 102 H 17 85/54 L 95 CPAP O2 Flow Rate 05/05/24 07:35 2 05/05/24 07:23 2 05/05/24 06:35 05/05/24 04:27 05/05/24 03:38 05/05/24 00:11 05/04/24 23:30 Laboratory Results Laboratory Results - last 24 hr 05/04/24 05/04/24 05/04/24 13:32 16:04 20:14 POC Glucose 168 H 164 H 168 H 05/05/24 07:20 POC Glucose 149 H PG Care Time/CCT Total # of Minutes Spent Total Time Spent with Patient: Total time spent is greater than 50% in coordination of care (as documented) at patient's floor/unit and/or counseling patient: Coding Level of Care Code 08450 SUB INP/OBS CARE 3/50MIN Diagnoses End stage renal disease on dialysis N18.6; Z99.2 Congestive heart failure (CHF) I50.9 Weakness R53.1
[2024-05-05 10:40] LABS: Basophils # (auto) 0.01 K/uL (0.00-0.20); Basophils % (auto) 0.1 %; Hematocrit (blood only) 29.3 % (42.0-52.0); Hemoglobin 8.5 g/dl (14.0-18.0); Immature Granulocytes % (auto) 3.1 %; Lymphocytes # (auto) 0.62 K/uL (1.20-3.40); Lymphocytes % (auto) 6.5 %; Mean Corpuscular Hemoglobin 24.7 pg (25.0-34.0); Mean Corpuscular Volume 85.2 fL (80.0-100.0); Mean Platelet Volume 12.2 fL (9.4-12.4); Monocytes # (auto) 0.32 K/uL (0.11-0.59); Monocytes % (auto) 3.4 %; Neutrophils % (auto) 86.9 %; Nucleated RBC # (auto) 0.64 K/uL (0.00-0.12); Nucleated RBC % (auto) 6.7 %; Platelet Count 39 K/uL (130-400); RDW Coefficient of Variation 22.3 % (11.5-14.5); RDW Standard Deviation 65.6 fL (36.4-46.3); Red Blood Count 3.44 M/uL (4.70-6.10); White Blood Count 9.55 K/ul (4.8-10.8)
[2024-05-05 10:58] LABS: Albumin Globulin Ratio 1.2 (0.9-2); Albumin Level 2.6 gm/dl (3.4-5.0); BUN Creatinine Ratio 12.4 (10-20); Bilirubin,Total 1.5 mg/dl (0.2-1.0); Creatinine Clr Calc Pharmacy 26.7 ml/min; Globulin 2.2 gm/dl (2.5-4.0); Potassium 4.5 mmol/L (3.5-5.1); Total Protein 4.8 gm/dl (6.0-8.3)
[2024-05-05 11:24] LABS: Anisocytosis Present; Polychromasia 2+
[2024-05-05] MEDS: EPOETIN ALFA 10,000 UNITS/ML VIAL IV ONE (15:32)
[2024-05-05] MEDS: POLYETHYLENE (MIRALAX) 17 GM PACK PO PRN (17:20)
--- NOTE | 2024-05-05 17:29 | Hospitalist Progress Note ---
Date of Service May 05, 2024 Assessment & Plan (1) End stage renal disease on dialysis: Plan: 68yo male - recent initiation of dialysis (M/W/F) for development of ESRD 03/2024, solitary kidney status (previous right nephrectomy for renal cell ca), A-fib, stage 4 renal cell cancer previously on Opdivo, HTN, hypercholesterolemia, hypothyroidism, and SARAH. Presented 04/28/24 with b/l leg weakness. BioFire positive for entero- /rhinovirus. CXR with pulmonary edema and new bilateral basilar infiltrates with small pleural effusion. Since admission has now had 7 serial HD sessions due to severe volume overload. Appreciate [facility] [place] [facility] assistance for HD needs. Likely to need another HD session tomorrow. Volume status MARKEDLY improved last few days with HD. continue midodrine to prevent intra-HD hypotension. (2) Acute pulmonary edema: Plan: 2nd to #1 improving cont serial HD sessions overall volume status markedly improved (3) Acute hypoxic respiratory failure: Plan: multifactorial - pulmonary edema from ESRD status, rhinovirus infection, +/- pneumonia treating individual components stable on NC O2 during the day CPAP with sleep (4) Pneumonia: Plan: suspected b/l basilar could be viral pneumonia 2nd to rhinovirus could be bacterial superinfection early in admission --> received rocephin/zithromax then changed to cefadroxil 05/02 and 05/03 --> worsening respiratory status procal 4 on 05/03 in light of rising procalcitonin and worsening respiratory status abx changed to IV zosyn on 05/03 thus, today is day #3 (5) Rhinovirus: Plan: droplet precautions supportive care (6) MARILEE (acute kidney injury): Plan: 03/2024 with ultimate need for HD see #1 above (7) Atrial fibrillation with rapid ventricular response: Plan: continues with less than optimal rate control despite meto succ BID + cardizem 30mg Q6h scheduled cont Eliquis 2.5mg BID if rate control proves difficult - and if low BPs limit titration of AV maggie agents - reconsult cardiology for assistance (8) Elevated troponin: Plan: peak HS trop 103 early in the admission no evidence of ACS likely myocardial demand ischemia in setting of volume overload from #1, rapid a.fib, rhinovirus infection, ?pneumonia, etc. (9) SARAH (obstructive sleep apnea): Plan: cont home CPAP (10) Hypothyroidism: Plan: TSH 03/2024 wnl cont synthroid (11) Autoimmune hepatitis treated with steroids: Plan: autoimmune hepatitis diagnosed July 2023 secondary to immunotherapy for renal cell ca on chronic steroids for such during previous hospital stay in March was placed on steroid burst initially was on 70mg/day weaning every 7 days by 10mg increments thus, wean to 50mg/day today hepatitis - 2nd to Opdivo? 2nd to hepatic congestion from volume overload? other? LFTs remain mildly high but acceptable for now (12) Morbid obesity with BMI of 40.0-44.9, adult: Plan: BMI 40 (13) Thrombocytopenia: Plan: 40s to 70s range while here without bleeding no indication for transfusion B12/folate levels wnl 2nd to Opdivo? 2nd to liver dysfunction? combination of factors? with use of Eliquis check a CBC about every 2 days to ensure stability (14) Renal cell carcinoma: Plan: stage 4 h/o right nephrectomy due to RCC follows with Dr Grijalva - cancer care clinic Plan VTE prophylaxis - Eliquis 2.5mg BID cont PT/OT rehab advised - [facility] ? updated at bedside, 05/04 Admission and Anticipated Discharge Date Admission Date: April 28, 2024 Subjective had another HD session today with UF of ~2.5 L dyspnea improved remains very tired denied any new complaints during the visit (I saw him during his HD session) tele - a.fib rates remain >100 consistently Review of Systems Review of Systems: gen - no fevers or chills cv - no chest pain, no orthopnea GI - no abd pain or N/V Physical Exam Physical Exam: gen - morbidly obese, NAD, laying in bed comfortably during dialysis neck - probable mild JVD mouth - MMM, mild hoarse voice heart - irregularly irregular, s1 s2, 2/6 systolic murmur LSB, rate >100 lungs - decreased BS b/l bases but airation improved relative to prior exams; no rales, no wheeze, no increased work of breathing abd - soft NT ND BS+ ext - 1+ pitting edema from feet to just below the knees; pulses b/l feet 2+ psych - a/o x 3 skin - numerous optifoams b/l arms; b/l mcclellan optifoams in place vascular - right upper chest HD catheter clean Results & Data Results & Data Vital Signs (Past 12 Hours) Vital Signs Temp Pulse Pulse Pulse Resp BP BP 05/05/24 16:15 36.6 C 111 H 101/74 05/05/24 16:00 123 H 96/62 L 05/05/24 15:30 109 H 80/60 L 05/05/24 15:21 115 H 05/05/24 15:00 90 88/56 L 05/05/24 14:30 70 92/61 L 05/05/24 14:00 96 H 81/66 L 05/05/24 13:30 91 H 96/68 L 05/05/24 13:00 102 H 101/77 05/05/24 12:30 122 H 99/75 L 05/05/24 12:11 120 H 107/81 05/05/24 11:58 36.8 C 120 H 05/05/24 10:51 94/62 L 05/05/24 07:35 05/05/24 07:23 36.5 C 109 H 19 100/71 05/05/24 07:00 100 H 05/05/24 06:35 102 H 105/73 Pulse Ox O2 Del Method O2 Flow Rate 05/05/24 16:15 05/05/24 16:00 05/05/24 15:30 05/05/24 15:21 05/05/24 15:00 05/05/24 14:30 05/05/24 14:00 05/05/24 13:30 05/05/24 13:00 05/05/24 12:30 05/05/24 12:11 05/05/24 11:58 05/05/24 10:51 05/05/24 07:35 Nasal Cannula 2 05/05/24 07:23 99 Nasal Cannula 2 05/05/24 07:00 05/05/24 06:35 Laboratory Results Laboratory Results - last 24 hr 05/04/24 05/05/24 05/05/24 20:14 07:20 10:30 WBC 9.55 RBC 3.44 L Hgb 8.5 L Hct 29.3 L MCV 85.2 MCH 24.7 L MCHC 29.0 L RDW Std Deviation 65.6 H RDW Coeff of Nick 22.3 H Plt Count 39 L MPV 12.2 Immature Gran % (Auto) 3.1 Neut % (Auto) 86.9 Lymph % (Auto) 6.5 [place] % (Auto) 3.4 Eos % (Auto) 0.0 Baso % (Auto) 0.1 Neut # (Auto) 8.30 H Lymph # (Auto) 0.62 L [place] # (Auto) 0.32 Eos # (Auto) 0.00 Baso # (Auto) 0.01 Immature Gran # (Auto) 0.30 H Absolute Nucleated RBC 0.64 H Nucleated RBC % (auto) 6.7 Polychromasia 2+ Anisocytosis Present Sodium 134 L Potassium 4.5 Chloride 101 Carbon Dioxide 24 Anion Gap 9 BUN 49 H Creatinine 3.95 H Est Cr Clr Drug Dosing 26.7 eGFR 15.57 BUN/Creatinine Ratio 12.4 Glucose 181 H POC Glucose 168 H 149 H Calcium 9.0 Total Bilirubin 1.5 H AST 40 H ALT 49 Alkaline Phosphatase 177 H Total Protein 4.8 L Albumin 2.6 L Globulin 2.2 L Albumin/Globulin Ratio 1.2 05/05/24 11:27 WBC RBC Hgb Hct MCV MCH MCHC RDW Std Deviation RDW Coeff of Nick Plt Count MPV Immature Gran % (Auto) Neut % (Auto) Lymph % (Auto) [place] % (Auto) Eos % (Auto) Baso % (Auto) Neut # (Auto) Lymph # (Auto) [place] # (Auto) Eos # (Auto) Baso # (Auto) Immature Gran # (Auto) Absolute Nucleated RBC Nucleated RBC % (auto) Polychromasia Anisocytosis Sodium Potassium Chloride Carbon Dioxide Anion Gap BUN Creatinine Est Cr Clr Drug Dosing eGFR BUN/Creatinine Ratio Glucose POC Glucose 170 H Calcium Total Bilirubin AST ALT Alkaline Phosphatase Total Protein Albumin Globulin Albumin/Globulin Ratio PG Care Time/CCT Total # of Minutes Spent Total Time Spent with Patient: Total time spent is greater than 50% in coordination of care (as documented) at patient's floor/unit and/or counseling patient: Coding Level of Care Code 78466 SUB INP/OBS CARE 2/35MIN Diagnoses End stage renal disease on dialysis N18.6; Z99.2 Acute pulmonary edema J81.0 Acute hypoxic respiratory failure J96.01 Pneumonia J18.9 Rhinovirus B34.8 MARILEE (acute kidney injury) N17.9 Atrial fibrillation with rapid ventricular response I48.91 Elevated troponin R79.89 SARAH (obstructive sleep apnea) G47.33 Hypothyroidism E03.9 Autoimmune hepatitis treated with steroids K75.4 Morbid obesity with BMI of 40.0-44.9, adult E66.01; Z68.41 Thrombocytopenia D69.6 Renal cell carcinoma C64.9
--- NOTE | 2024-05-06 08:33 | Nephrology Progress Note ---
Date of Service May 06, 2024 Assessment & Plan (1) End stage renal disease on dialysis: Plan: * Will provide HD today and attempt additional 3 L UF * Volume status has improved but patient remains clinically volume overloaded w/ 2+ pretibial and arm edema * SBP low 100's may limit UF. Will dialyze using Crit-line monitor * Bumex stopped due to oliguria * Outpatient orders: [facility] MWF 3.5hr F-180NR 3K 2.5Ca Na140 HCO3 34 EDW 157kg * Will need AVF scheduled as outpatient * Midodrine required due to chronic hypotension. 10 mg to be provided prior to HD. (2) Congestive heart failure (CHF): Plan: * 04/17/24 echocardiogram: LVEF 60-65%, mod LVH, mild MR (3) Weakness: Plan: * PT/OT not yet started * Likely will require rehab post discharge. Consider possible steroid induced myopathy? +entero/rhino virus. Admission and Anticipated Discharge Date Admission Date: April 28, 2024 Subjective Mr. Guadalupe was evaluated prior to HD this morning. He voiced no medical concerns but still c/o LE edema Review of Systems Constitutional: no fever Eyes: no problem reported Ear, Nose, Mouth, Throat: no problem reported Respiratory: no dyspnea Cardiovascular: no chest pain Gastrointestinal: no abdominal pain, no nausea, no vomiting and no diarrhea/loose stools Integumentary: no rash Physical Exam Constitutional: not in distress Eyes: PERRL, conjunctivae normal, anicteric sclerae ENMT: external ear and nose normal, oropharynx normal Neck: trachea midline, no thyromegaly (IJ TCC w/ clean dry dressing) Respiratory: normal respiratory effort (Diminished breath sounds right base) Auscultation: lungs clear to auscultation bilaterally and + rales (bilaterally) Cardiovascular: RRR, no murmur, no edema Rate/Rhythm: + tachycardic and + irregularly irregular Extremities: + edema (2+ peripheral edema) Gastrointestinal (Abdomen): normal bowel sounds, soft, nontender, no hepatosplenomegaly Musculoskeletal: Extremities: no cyanosis Skin: no rashes, warm and dry Neurologic: awake; not confused Speech / Cognition: normal speech and normal cognition Results & Data Vital Signs (Past 12 Hours) Vital Signs Temp Pulse Pulse Resp BP Pulse Ox O2 Del Method 05/06/24 07:44 36.5 C 97 H 18 107/69 97 Nasal Cannula 05/06/24 05:44 97 H 18 116/79 96 Nasal Cannula 05/06/24 03:56 36.5 C 113 H 18 98/64 L 97 BiPAP 05/06/24 02:36 118 H 05/06/24 01:27 36.5 C 109 H 18 110/78 96 CPAP 05/05/24 23:43 36.9 C 117 H 20 108/73 98 BiPAP 05/05/24 23:40 116 H 16 101/73 97 CPAP 05/05/24 21:26 105 H 16 106/70 98 Nasal Cannula 05/05/24 20:45 Nasal Cannula O2 Flow Rate 05/06/24 07:44 2 05/06/24 05:44 2 05/06/24 03:56 05/06/24 02:36 05/06/24 01:27 2 05/05/24 23:43 05/05/24 23:40 2 05/05/24 21:26 2 05/05/24 20:45 2 Laboratory Results Laboratory Results - last 24 hr 05/05/24 05/05/24 05/05/24 10:30 11:27 19:59 WBC 9.55 RBC 3.44 L Hgb 8.5 L Hct 29.3 L MCV 85.2 MCH 24.7 L MCHC 29.0 L RDW Std Deviation 65.6 H RDW Coeff of Nick 22.3 H Plt Count 39 L MPV 12.2 Immature Gran % (Auto) 3.1 Neut % (Auto) 86.9 Lymph % (Auto) 6.5 [place] % (Auto) 3.4 Eos % (Auto) 0.0 Baso % (Auto) 0.1 Neut # (Auto) 8.30 H Lymph # (Auto) 0.62 L [place] # (Auto) 0.32 Eos # (Auto) 0.00 Baso # (Auto) 0.01 Immature Gran # (Auto) 0.30 H Absolute Nucleated RBC 0.64 H Nucleated RBC % (auto) 6.7 Polychromasia 2+ Anisocytosis Present Sodium 134 L Potassium 4.5 Chloride 101 Carbon Dioxide 24 Anion Gap 9 BUN 49 H Creatinine 3.95 H Est Cr Clr Drug Dosing 26.7 eGFR 15.57 BUN/Creatinine Ratio 12.4 Glucose 181 H POC Glucose 170 H 179 H Calcium 9.0 Total Bilirubin 1.5 H AST 40 H ALT 49 Alkaline Phosphatase 177 H Total Protein 4.8 L Albumin 2.6 L Globulin 2.2 L Albumin/Globulin Ratio 1.2 05/06/24 08:11 WBC RBC Hgb Hct MCV MCH MCHC RDW Std Deviation RDW Coeff of Nick Plt Count MPV Immature Gran % (Auto) Neut % (Auto) Lymph % (Auto) [place] % (Auto) Eos % (Auto) Baso % (Auto) Neut # (Auto) Lymph # (Auto) [place] # (Auto) Eos # (Auto) Baso # (Auto) Immature Gran # (Auto) Absolute Nucleated RBC Nucleated RBC % (auto) Polychromasia Anisocytosis Sodium Potassium Chloride Carbon Dioxide Anion Gap BUN Creatinine Est Cr Clr Drug Dosing eGFR BUN/Creatinine Ratio Glucose POC Glucose 146 H Calcium Total Bilirubin AST ALT Alkaline Phosphatase Total Protein Albumin Globulin Albumin/Globulin Ratio PG Care Time/CCT Total # of Minutes Spent Total Time Spent with Patient: Total time spent is greater than 50% in coordination of care (as documented) at patient's floor/unit and/or counseling patient: Coding Level of Care Code 49092 SUB INP/OBS CARE 3/50MIN Diagnoses End stage renal disease on dialysis N18.6; Z99.2 Congestive heart failure (CHF) I50.9 Weakness R53.1
--- NOTE | 2024-05-06 17:08 | Hospitalist Progress Note ---
Date of Service May 06, 2024 Assessment & Plan (1) End stage renal disease on dialysis: Plan: 68yo male - recent initiation of dialysis (M/W/F) for development of ESRD 03/2024, solitary kidney status (previous right nephrectomy for renal cell ca), A-fib, stage 4 renal cell cancer previously on Opdivo, HTN, hypercholesterolemia, hypothyroidism, and SARAH. Presented 04/28/24 with b/l leg weakness. BioFire positive for entero- /rhinovirus. CXR with pulmonary edema and new bilateral basilar infiltrates with small pleural effusions. Since admission has now had 8 serial HD sessions (includes today's session) due to severe volume overload. Appreciate [facility] [place] Nephrology assistance for HD needs. Will likely have another session tomorrow. Volume status MARKEDLY improved last few days with HD. Orthopnea resolved. Dyspnea resolving. continue midodrine to prevent intra-HD hypotension. (2) Acute pulmonary edema: Plan: 2nd to #1 improving very nicely cont serial HD sessions overall volume status markedly improved (3) Acute hypoxic respiratory failure: Plan: multifactorial - pulmonary edema from ESRD status, rhinovirus infection, +/- pneumonia treating individual components stable on NC O2 during the day CPAP with sleep (4) Pneumonia: Plan: suspected b/l basilar could be viral pneumonia 2nd to rhinovirus could be bacterial superinfection early in admission --> received rocephin/zithromax then changed to cefadroxil 05/02 and 05/03 --> worsening respiratory status procal 4 on 05/03 in light of rising procalcitonin and worsening respiratory status abx changed to IV zosyn on 05/03 thus, today is day #4 stop zosyn change to PO levaquin 750mg x 1 on 05/07 then 500mg x 1 on 05/09 then stop all abx (5) Rhinovirus: Plan: droplet precautions supportive care (6) MARILEE (acute kidney injury): Plan: 03/2024 with ultimate need for HD see #1 above (7) Atrial fibrillation with rapid ventricular response: Plan: continues with suboptimal rate control despite meto succ BID + cardizem 30mg Q6h scheduled cont Eliquis 2.5mg BID I corresponded with Dr Mitchell from [facility] [place] Cardiology today regarding his poorly controlled a.fib If after he achieves euvolemia he continues with poor rate control 1 option would be AV maggie ablation with pacer placement poor candidate for amiodarone due to abnormal LFTs & autoimmune hepatitis will change cardizem to CD to allow easier administration; start long-acting tonight (8) Elevated troponin: Plan: peak HS trop 103 early in the admission no evidence of ACS likely myocardial demand ischemia in setting of volume overload from #1, rapid a.fib, rhinovirus infection, ?pneumonia, etc. (9) SARAH (obstructive sleep apnea): Plan: cont home CPAP (10) Hypothyroidism: Plan: TSH 03/2024 wnl cont synthroid (11) Autoimmune hepatitis treated with steroids: Plan: autoimmune hepatitis diagnosed July 2023 secondary to immunotherapy for renal cell ca on chronic steroids for such during previous hospital stay in March was placed on steroid burst initially was on 70mg/day weaning every 7 days by 10mg increments thus, weaned to 50mg/day on 05/05 hepatitis - 2nd to Opdivo? 2nd to hepatic congestion from volume overload? other? LFTs remain mildly high but acceptable for now recheck in 2-3 days for stability ideally should be on PJP prophy until prednisone is <20mg/day typically bactrim is used for such will check with pharmacy (12) Morbid obesity with BMI of 40.0-44.9, adult: Plan: BMI 40 (13) Thrombocytopenia: Plan: 40s to 70s range while here without bleeding no indication for transfusion B12/folate levels wnl 2nd to Opdivo? 2nd to liver dysfunction? combination of factors? recheck CBC am (14) Renal cell carcinoma: Plan: stage 4 h/o right nephrectomy due to RCC follows with Dr Grijalva - cancer care clinic (15) S/P TAVR (transcatheter aortic valve replacement): Plan: last echo with normal valve function (04/17) (16) Prediabetes: Plan: a1c 6.1% in Mar 2024 certainly his BSGs will be high with the high-dose prednisone cont novolog SSI Plan VTE prophylaxis - Eliquis 2.5mg BID cont PT/OT rehab advised - [facility] ? updated at bedside, 05/04 will update her again by phone today care briefly d/w Dr Mitchell from cardiology Admission and Anticipated Discharge Date Admission Date: April 28, 2024 Subjective tele - a.fib rates (during sleep) 90s to low 100s; while awake - >110 to 130s saw patient post-HD c/o fatigue he is able to lay flat relatively comfortably without orthopnea/dyspnea denies any dyspnea today no cough no pain any location Review of Systems Review of Systems: gen - no fevers or chills cv - no chest pain GI - no abd pain or N/V; + stool psych - did not sleep that good last pm Physical Exam Physical Exam: gen - morbidly obese, NAD, laying nearly flat in bed comfortably neck - did not assess for JVD today mouth - MMM, mild hoarse voice heart - irregularly irregular, s1 s2, 2/6 systolic murmur LSB, tachy lungs - mildly decreased BS b/l bases; no rales, no wheeze, no increased work of breathing abd - soft NT ND BS+ ext - 1+ pitting edema from feet to just below the knees, slightly worse on left; pulses b/l feet 2+ psych - a/o x 3 skin - numerous optifoams b/l arms; b/l mcclellan optifoams in place Results & Data Results & Data Vital Signs (Past 12 Hours) Vital Signs Temp Pulse Pulse Pulse Resp BP BP 05/06/24 16:15 36.4 C L 101 H 18 103/70 05/06/24 13:51 36.6 C 118 H 18 92/62 L 05/06/24 13:35 36.4 C L 126 H 100/69 05/06/24 13:00 127 H 80/64 L 05/06/24 12:40 130 H 88/67 L 05/06/24 12:30 132 H 80/64 L 05/06/24 12:00 128 H 91/61 L 05/06/24 11:30 124 H 73/58 L 05/06/24 11:00 129 H 87/59 L 05/06/24 10:30 126 H 85/67 L 05/06/24 10:00 110 H 84/67 L 05/06/24 09:30 119 H 96/69 L 05/06/24 09:21 105 H 94/61 L 05/06/24 09:16 36.5 C 102 H 05/06/24 08:00 05/06/24 07:44 36.5 C 97 H 18 107/69 05/06/24 05:44 97 H 18 116/79 Pulse Ox O2 Del Method O2 Flow Rate 05/06/24 16:15 96 Nasal Cannula 2 05/06/24 13:51 99 Nasal Cannula 2 05/06/24 13:35 05/06/24 13:00 05/06/24 12:40 05/06/24 12:30 05/06/24 12:00 05/06/24 11:30 05/06/24 11:00 05/06/24 10:30 05/06/24 10:00 05/06/24 09:30 05/06/24 09:21 05/06/24 09:16 05/06/24 08:00 Nasal Cannula 2 05/06/24 07:44 97 Nasal Cannula 2 05/06/24 05:44 96 Nasal Cannula 2 Laboratory Results Laboratory Results - last 24 hr 05/05/24 05/06/24 05/06/24 19:59 08:11 13:53 POC Glucose 179 H 146 H 129 H 05/06/24 17:06 POC Glucose 166 H PG Care Time/CCT Total # of Minutes Spent Total Time Spent with Patient: Total time spent is greater than 50% in coordination of care (as documented) at patient's floor/unit and/or counseling patient: Coding Level of Care Code 49987 SUB INP/OBS CARE 3/50MIN Diagnoses End stage renal disease on dialysis N18.6; Z99.2 Acute pulmonary edema J81.0 Acute hypoxic respiratory failure J96.01 Pneumonia J18.9 Rhinovirus B34.8 MARILEE (acute kidney injury) N17.9 Atrial fibrillation with rapid ventricular response I48.91 Elevated troponin R79.89 SARAH (obstructive sleep apnea) G47.33 Hypothyroidism E03.9 Autoimmune hepatitis treated with steroids K75.4 Morbid obesity with BMI of 40.0-44.9, adult E66.01; Z68.41 Thrombocytopenia D69.6 Renal cell carcinoma C64.9 S/P TAVR (transcatheter aortic valve replacement) Z95.2 Prediabetes R73.03
[2024-05-06] MEDS: dilTIAZem HCL 120 MG CAPCR PO SCH (19:49)
[2024-05-07] MEDS: levoFLOXacin 750 MG TAB PO ONE (08:37)
--- NOTE | 2024-05-07 08:42 | Nephrology Progress Note ---
Date of Service May 07, 2024 Assessment & Plan (1) End stage renal disease on dialysis: Plan: * Will provide HD today and attempt additional 3 L UF * Volume status has improved but patient remains clinically volume overloaded w/ 1+ pretibial and arm edema * SBP low 100's may limit UF. Will dialyze using Crit-line monitor * Bumex stopped due to oliguria * Outpatient orders: [facility]any MWF 3.5hr F-180NR 3K 2.5Ca Na140 HCO3 34 EDW 157kg * Will need AVF scheduled as outpatient * Midodrine required due to chronic hypotension. 10 mg to be provided prior to HD * Plan to rest over weekend to allow further PT and then resume HD on MWF schedule next week (2) Congestive heart failure (CHF): Plan: * 04/17/24 echocardiogram: LVEF 60-65%, mod LVH, mild MR (3) Weakness: Plan: * PT/OT started 05/07/24 * Likely will require rehab post discharge. Consider possible steroid induced myopathy? +entero/rhino virus. Admission and Anticipated Discharge Date Admission Date: April 28, 2024 Subjective Mr. Guadalupe was evaluated prior to HD this morning. He attempted PT this morning but remains weak. He is agreeable to HD today for continued UF Review of Systems Constitutional: no fever Eyes: no problem reported Ear, Nose, Mouth, Throat: no problem reported Respiratory: no dyspnea Cardiovascular: no chest pain Gastrointestinal: no abdominal pain, no nausea, no vomiting and no diarrhea/loose stools Integumentary: no rash Physical Exam Constitutional: not in distress Eyes: PERRL, conjunctivae normal, anicteric sclerae ENMT: external ear and nose normal, oropharynx normal Neck: trachea midline, no thyromegaly (IJ TCC w/ clean dry dressing) Respiratory: normal respiratory effort (Diminished breath sounds right base) Auscultation: lungs clear to auscultation bilaterally and + rales (bilaterally) Cardiovascular: RRR, no murmur, no edema Rate/Rhythm: + tachycardic and + irregularly irregular Extremities: + edema (1+ peripheral edema) Gastrointestinal (Abdomen): normal bowel sounds, soft, nontender, no hepatosplenomegaly Musculoskeletal: Extremities: no cyanosis Skin: no rashes, warm and dry Neurologic: awake; not confused Speech / Cognition: normal speech and normal cognition Results & Data Vital Signs (Past 12 Hours) Vital Signs Temp Pulse Pulse Pulse Resp BP Pulse Ox 05/07/24 07:38 36.4 C L 108 H 20 132/75 98 05/07/24 07:00 103 H 05/07/24 04:01 36.4 C L 107 H 20 100/66 99 05/06/24 22:59 36.7 C 105 H 18 105/73 96 05/06/24 21:52 109 H O2 Del Method O2 Flow Rate 05/07/24 07:38 Nasal Cannula 2 05/07/24 07:00 05/07/24 04:01 CPAP 2 05/06/24 22:59 Nasal Cannula 2 05/06/24 21:52 Laboratory Results Laboratory Results - last 24 hr 05/06/24 05/06/24 05/06/24 13:53 17:06 20:03 POC Glucose 129 H 166 H 177 H 05/07/24 07:54 POC Glucose 136 H PG Care Time/CCT Total # of Minutes Spent Total Time Spent with Patient: Total time spent is greater than 50% in coordination of care (as documented) at patient's floor/unit and/or counseling patient: Coding Level of Care Code 46952 SUB INP/OBS CARE 3/50MIN Diagnoses End stage renal disease on dialysis N18.6; Z99.2 Congestive heart failure (CHF) I50.9 Weakness R53.1
[2024-05-07 10:09] LABS: BUN Creatinine Ratio 12.9 (10-20); Calcium 9.1 mg/dl (8.6-10.3); Creatinine Clr Calc Pharmacy 28.1 ml/min; Potassium 4.8 mmol/L (3.5-5.1)
[2024-05-07 11:09] LABS: Anisocytosis Present; Basophils # (auto) 0.02 K/uL (0.00-0.20); Basophils % (auto) 0.2 %; Eosinophils # (auto) 0.01 K/uL (0.00-0.50); Eosinophils % (auto) 0.1 %; Hematocrit (blood only) 31.8 % (42.0-52.0); Hemoglobin 8.8 g/dl (14.0-18.0); Immature Granulocytes # (auto) 0.25 K/uL (0.01-0.20); Immature Granulocytes % (auto) 2.7 %; Lymphocytes # (auto) 0.88 K/uL (1.20-3.40); Lymphocytes % (auto) 9.5 %; Mean Corpuscular Hemoglobin 23.9 pg (25.0-34.0); Mean Corpuscular Hgb Conc 27.7 g/dL (32.0-36.0); Mean Corpuscular Volume 86.4 fL (80.0-100.0); Monocytes # (auto) 0.36 K/uL (0.11-0.59); Monocytes % (auto) 3.9 %; Neutrophils # (auto) 7.72 K/uL (1.40-6.50); Neutrophils % (auto) 83.6 %; Nucleated RBC # (auto) 0.69 K/uL (0.00-0.12); Nucleated RBC % (auto) 7.5 %; Ovalocytes 1+; Platelet Count 44 K/uL (130-400); Polychromasia 2+; RDW Coefficient of Variation 22.7 % (11.5-14.5); RDW Standard Deviation 67.2 fL (36.4-46.3); Red Blood Count 3.68 M/uL (4.70-6.10); Tear Drop Cells 1+; White Blood Count 9.24 K/ul (4.8-10.8)
[2024-05-07] MEDS: EPOETIN ALFA 10,000 UNITS/ML VIAL IV ONE (13:03)
--- NOTE | 2024-05-07 18:19 | Hospitalist Progress Note ---
Date of Service May 07, 2024 Assessment & Plan (1) End stage renal disease on dialysis: Plan: 68yo male - recent initiation of dialysis (M/W/F) for development of ESRD 03/2024, solitary kidney status (previous right nephrectomy for renal cell ca), A-fib, stage 4 renal cell cancer previously on Opdivo, HTN, hypercholesterolemia, hypothyroidism, and SARAH. Presented 04/28/24 with b/l leg weakness. BioFire positive for entero- /rhinovirus. CXR with pulmonary edema and new bilateral basilar infiltrates with small pleural effusions. Since admission has now had 9 serial HD sessions (includes today's session) due to severe volume overload. Appreciate [facility] [place] for [place] needs. NO HD planned for this weekend; to resume on Friday, 05/10. Volume status MARKEDLY improved since admission. Orthopnea resolved. Dyspnea resolved. continue midodrine to prevent intra-HD hypotension. (2) Acute pulmonary edema: Plan: 2nd to #1 clinically resolved (3) Acute hypoxic respiratory failure: Plan: multifactorial - pulmonary edema from ESRD status, rhinovirus infection, +/- pneumonia treating individual components stable on NC O2 during the day CPAP with sleep (4) Pneumonia: Plan: suspected b/l basilar could be viral pneumonia 2nd to rhinovirus could be bacterial superinfection early in admission --> received rocephin/zithromax then changed to cefadroxil 05/02 and 05/03 --> worsening respiratory status procal 4 on 05/03 in light of rising procalcitonin and worsening respiratory status abx changed to IV zosyn on 05/03 thus, today is day #5 stop zosyn change to PO levaquin 750mg x 1 on 05/07 then 500mg x 1 on 05/09 then stop all abx (5) Rhinovirus: Plan: droplet precautions stopped today clinically resolved (6) MARILEE (acute kidney injury): Plan: 03/2024 with ultimate need for HD see #1 above (7) Atrial fibrillation with rapid ventricular response: Plan: continues with suboptimal rate control despite meto succ BID + cardizem CD 120mg HS cont Eliquis 2.5mg BID I corresponded with Dr Mitchell from [facility] [place] regarding his poorly controlled a.fib If after he achieves euvolemia he continues with poor rate control 1 option would be AV maggie ablation with pacer placement poor candidate for amiodarone due to abnormal LFTs & autoimmune hepatitis suspect next week we will make a final plan for the a.fib patient aware (8) Elevated troponin: Plan: peak HS trop 103 early in the admission no evidence of ACS likely myocardial demand ischemia in setting of volume overload from #1, rapid a.fib, rhinovirus infection, ?pneumonia, etc. (9) SARAH (obstructive sleep apnea): Plan: cont home CPAP (10) Hypothyroidism: Plan: TSH 03/2024 wnl cont synthroid (11) Autoimmune hepatitis treated with steroids: Plan: autoimmune hepatitis diagnosed July 2023 secondary to immunotherapy for renal cell ca on chronic steroids for such during previous hospital stay in March was placed on steroid burst initially was on 70mg/day weaning every 7 days by 10mg increments thus, weaned to 50mg/day on 05/05 hepatitis - 2nd to Opdivo? 2nd to hepatic congestion from volume overload? other? LFTs remain mildly high but acceptable for now recheck in 2-3 days for stability ideally should be on PJP prophy until prednisone is <20mg/day typically bactrim is used for such use SS tmp/sulfa 1 tab M/W/F at HS for prophy (12) Morbid obesity with BMI of 40.0-44.9, adult: Plan: BMI 40 (13) Thrombocytopenia: Plan: 40s to 70s range while here without bleeding no indication for transfusion B12/folate levels wnl platelets 44 today 2nd to Opdivo? 2nd to liver dysfunction? combination of factors? recheck every 2-3 days for stability (14) Renal cell carcinoma: Plan: stage 4 h/o right nephrectomy due to RCC follows with Dr Grijalva - cancer care clinic (15) S/P TAVR (transcatheter aortic valve replacement): Plan: last echo with normal valve function (04/17) (16) Prediabetes: Plan: a1c 6.1% in Mar 2024 certainly his BSGs will be high with the high-dose prednisone cont novolog SSI control satisfactory Plan VTE prophylaxis - Eliquis 2.5mg BID cont PT/OT rehab advised - [facility] ? updated at bedside, 05/04 and 05/07 updated by phone 05/06 Admission and Anticipated Discharge Date Admission Date: April 28, 2024 Subjective unable to stand with PT this am despite attempts to do so then had dialysis session again - 2.5 of UF removed had hypotension to the 70s during HD and a.fib RVR (120s/130s) I saw the patient in his room post-HD he voiced feeling extremely fatigued willing to get out to the chair with use of a lift if it is feasible laying flat in bed -- denies any dyspnea no cough at this point eating fair tele - a.fib rates 90s at best during sleep, otherwise 100s to 130s at all times Review of Systems Review of Systems: gen - no fevers or chills cv - no cp, no orthopnea, no PND pulm - no dyspnea at rest, no pleuritic pain GI - no abd pain or N/V musculo - generalized weakness Physical Exam Physical Exam: gen - morbidly obese, NAD, laying flat in bed comfortably mouth - MMM, mild hoarse/weak voice heart - irregularly irregular, s1 s2, 2/6 systolic murmur LSB, tachy lungs - CTA b/l, no rales, no wheeze, airation bases much improved; no increased work of breathing abd - soft NT ND BS+ ext - 1+ pitting edema from feet to just below the knees, slightly worse on left; edema b/l arms improved; pulses b/l feet 2+ psych - a/o x 3 skin - numerous optifoams b/l arms and some on shins as well Results & Data Results & Data Vital Signs (Past 12 Hours) Vital Signs Temp Pulse Pulse Pulse Resp BP BP 05/07/24 16:41 36.3 C L 65 18 114/76 05/07/24 15:00 148 H 05/07/24 15:00 36.8 C 103 H 20 106/68 05/07/24 13:34 36.6 C 108 H 20 92/56 L 05/07/24 13:08 36.5 C 102 H 90/57 L 05/07/24 13:00 61 72/32 L 05/07/24 12:30 75 82/52 L 05/07/24 12:00 61 91/67 L 05/07/24 11:30 80 82/62 L 05/07/24 11:00 117 H 93/66 L 05/07/24 10:30 91 H 98/63 L 05/07/24 10:00 89 108/73 05/07/24 09:31 65 122/85 05/07/24 09:26 36.5 C 111 H 05/07/24 07:38 36.4 C L 108 H 20 132/75 05/07/24 07:00 103 H Pulse Ox O2 Del Method O2 Flow Rate 05/07/24 16:41 100 Nasal Cannula 2 05/07/24 15:00 05/07/24 15:00 98 Room Air 05/07/24 13:34 98 Room Air 05/07/24 13:08 05/07/24 13:00 05/07/24 12:30 05/07/24 12:00 05/07/24 11:30 05/07/24 11:00 05/07/24 10:30 05/07/24 10:00 05/07/24 09:31 05/07/24 09:26 05/07/24 07:38 98 Nasal Cannula 2 05/07/24 07:00 Laboratory Results Laboratory Results - last 24 hr 05/07/24 05/07/24 05/07/24 07:54 09:25 13:35 WBC 9.24 RBC 3.68 L Hgb 8.8 L Hct 31.8 L MCV 86.4 MCH 23.9 L MCHC 27.7 L RDW Std Deviation 67.2 H RDW Coeff of Nick 22.7 H Plt Count 44 L Immature Gran % (Auto) 2.7 Neut % (Auto) 83.6 Lymph % (Auto) 9.5 Summers % (Auto) 3.9 Eos % (Auto) 0.1 Baso % (Auto) 0.2 Neut # (Auto) 7.72 H Lymph # (Auto) 0.88 L Summers # (Auto) 0.36 Eos # (Auto) 0.01 Baso # (Auto) 0.02 Immature Gran # (Auto) 0.25 H Absolute Nucleated RBC 0.69 H Nucleated RBC % (auto) 7.5 Polychromasia 2+ Anisocytosis Present Tear Drop Cells 1+ Ovalocytes 1+ Sodium 135 L Potassium 4.8 Chloride 100 Carbon Dioxide 24 Anion Gap 11 BUN 48 H Creatinine 3.72 H Est Cr Clr Drug Dosing 28.1 eGFR 16.74 BUN/Creatinine Ratio 12.9 Glucose 167 H POC Glucose 136 H 131 H Calcium 9.1 PG Care Time/CCT Total # of Minutes Spent Total Time Spent with Patient: Total time spent is greater than 50% in coordination of care (as documented) at patient's floor/unit and/or counseling patient: Coding Level of Care Code 85737 SUB INP/OBS CARE 2MIN Diagnoses End stage renal disease on dialysis N18.6; Z99.2 Acute pulmonary edema J81.0 Acute hypoxic respiratory failure J96.01 Pneumonia J18.9 Rhinovirus B34.8 MARILEE (acute kidney injury) N17.9 Atrial fibrillation with rapid ventricular response I48.91 Elevated troponin R79.89 SARAH (obstructive sleep apnea) G47.33 Hypothyroidism E03.9 Autoimmune hepatitis treated with steroids K75.4 Morbid obesity with BMI of 40.0-44.9, adult E66.01; Z68.41 Thrombocytopenia D69.6 Renal cell carcinoma C64.9 S/P TAVR (transcatheter aortic valve replacement) Z95.2 Prediabetes R73.03
[2024-05-07] MEDS: SULFA/TRIMETH 400/80MG TAB PO SCH (21:17)
[2024-05-07] MEDS: bisacodyL 5 MG TABEC PO PRN (21:23)
[2024-05-08 07:14] LABS: Hematocrit (blood only) 30.8 % (42.0-52.0); Hemoglobin 8.7 g/dl (14.0-18.0); Mean Corpuscular Hemoglobin 24.3 pg (25.0-34.0); Mean Corpuscular Hgb Conc 28.2 g/dL (32.0-36.0); Nucleated RBC # (auto) 0.93 K/uL (0.00-0.12); Nucleated RBC % (auto) 11.8 %; Platelet Count 38 K/uL (130-400); RDW Coefficient of Variation 22.3 % (11.5-14.5); RDW Standard Deviation 67.4 fL (36.4-46.3); Red Blood Count 3.58 M/uL (4.70-6.10); White Blood Count 7.85 K/ul (4.8-10.8)
[2024-05-08 07:20] LABS: BUN Creatinine Ratio 12.5 (10-20); Calcium 9.2 mg/dl (8.6-10.3); Creatinine Clr Calc Pharmacy 30.2 ml/min; Potassium 4.9 mmol/L (3.5-5.1)
[2024-05-08] MEDS ORDERED: MICONAZOLE NITRATE POWDER 85 GM EXT PRN (10:30)
--- NOTE | 2024-05-08 11:02 | Nephrology Progress Note ---
Date of Service May 08, 2024 Assessment & Plan (1) End stage renal disease on dialysis: (2) Anemia: (3) Renal cell carcinoma: (4) Acute pulmonary edema: (5) Weakness: (6) Hyperkalemia: (7) Pulmonary edema: (8) Congestive heart failure (CHF): Plan 68-year-old gentleman with end-stage kidney disease with solitary kidney and hypertensive nephrosclerosis, Started on hemodialysis after having had tunneled dialysis catheter on 04/16/2024. He was getting outpatient dialysis but admitted with generalized weakness, pulmonary congestion and significant volume overload and over last few days had UF challenge and more than 2o kg weight loss. Overall feeling better but generally weak. blood pressure stable. He seems to have reached dry weight as blood pressure was dropping with further UF last 2 dialysis session. --Plan for rest over the weekend and then resume dialysis Friday and continue Friday, Friday, Friday dialysis. --Midodrine 10 mg prior to dialysis --continue renal vitamin. --Right arm nephrology precaution --Dose medications for less than 10. Admission and Anticipated Discharge Date Admission Date: April 28, 2024 Subjective Mr. Guadalupe was seen and evaluated this morning. He reports generally feeling slightly better although still feels tired and exhausted. Denies shortness of breath. Had dialysis yesterday. Review of Systems Review of Systems: Detailed review of system was done and pertinent positives and negatives are mentioned above. Physical Exam Constitutional: WD/WN, vitals as above no acute distress Eyes: + anicteric sclerae Neck: normal visual inspection Respiratory: Auscultation: + diminished lung sounds Cardiovascular: Rate/Rhythm: regular rate and regular rhythm Heart Sounds: normal S1 and normal S2 Extremities: + edema (trace b/l LE edema) and + AV fistula (Rt IJ TDC) Skin: + turgor decreased, + lesion, + skin atr ophy and + ecchymosis Neurologic: no focal motor deficits and not confused Psychiatric: Orientation: alert and oriented x 3 Results & Data Vital Signs (Past 12 Hours) Vital Signs Temp Pulse Pulse Resp BP Pulse Ox O2 Del Method 05/08/24 07:10 36.6 C 112 H 20 111/78 98 Nasal Cannula 05/08/24 07:00 106 H 05/08/24 03:29 36.6 C 98 H 20 105/72 98 Nasal Cannula, Oxymask, CPAP 05/08/24 00:01 Room Air 05/07/24 23:34 36.5 C 113 H 12 103/72 97 Nasal Cannula O2 Flow Rate 05/08/24 07:10 2 05/08/24 07:00 05/08/24 03:29 2 05/08/24 00:01 05/07/24 23:34 2 PG Care Time/CCT Total # of Minutes Spent Total Time Spent with Patient: Total time spent is greater than 50% in coordination of care (as documented) at patient's floor/unit and/or counseling patient: Coding Level of Care Code 84852 SUB INP/OBS CARE 235MIN Diagnoses End stage renal disease on dialysis N18.6; Z99.2 Anemia D64.9 Renal cell carcinoma C64.9 Acute pulmonary edema J81.0 Weakness R53.1 Hyperkalemia E87.5 Pulmonary edema J81.0 Chronicity: acute Congestive heart failure (CHF) I50.9 (7) Pulmonary edema Chronicity: acute Qualified Code(s): J81.0 - Acute pulmonary edema
--- NOTE | 2024-05-08 17:50 | Hospitalist Progress Note ---
Date of Service May 08, 2024 Assessment & Plan (1) End stage renal disease on dialysis: Plan: 68yo male - recent initiation of dialysis (M/W/F) for development of ESRD 03/2024, solitary kidney status (previous right nephrectomy for renal cell ca), A-fib, stage 4 renal cell cancer previously on Opdivo, HTN, hypercholesterolemia, hypothyroidism, and SARAH. Presented 04/28/24 with b/l leg weakness. BioFire positive for entero- /rhinovirus. CXR with pulmonary edema and new bilateral basilar infiltrates with small pleural effusions. Since admission -- s/p 9 serial HD sessions due to severe volume overload. Appreciate [facility] assistance for HD needs. NO HD planned for this weekend; to resume on Friday, 05/10. Volume status MARKEDLY improved since admission. Orthopnea resolved. Dyspnea resolved. Will try to get a dry weight today (standing weight would be ideal). continue midodrine to prevent intra-HD hypotension. (2) Acute pulmonary edema: Plan: 2nd to #1 clinically resolved (3) Weakness: Plan: mainly proximal muscle weakness of hips shoulder/arm strength largely preserved distal strength of feet/ankles 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 lumbar spine issue (unlikely as he does not have back pain or radicular pain of either leg)? check B1 level check CPK consider MRI brain consider MRI lumbar spine cont PT/OT (4) Acute hypoxic respiratory failure: Plan: multifactorial - pulmonary edema from ESRD status, rhinovirus infection, +/- pneumonia treating individual components stable on NC O2 during the day CPAP with sleep (5) Pneumonia: Plan: suspected b/l basilar could be viral pneumonia 2nd to rhinovirus could be bacterial superinfection early in admission --> received rocephin/zithromax then changed to cefadroxil 05/02 and 05/03 --> worsening respiratory status procal 4 on 05/03 in light of rising procalcitonin and worsening respiratory status abx changed to IV zosyn on 05/03 thus, today is day #6 zosyn stopped 05/07 gave PO levaquin 750mg x 1 on 05/07 then 500mg x 1 on 05/09 then stop all abx (6) Rhinovirus: Plan: droplet precautions stopped clinically resolved (7) MARILEE (acute kidney injury): Plan: 03/2024 with ultimate need for HD see #1 above (8) Atrial fibrillation with rapid ventricular response: Plan: continues with suboptimal rate control despite meto succ BID + cardizem CD 120mg HS cont Eliquis 2.5mg BID I corresponded with Dr Mitchell from [facility] regarding his poorly controlled a.fib If after he achieves euvolemia he continues with poor rate control 1 option would be AV maggie ablation with pacer placement poor candidate for amiodarone due to abnormal LFTs & autoimmune hepatitis suspect next week we will make a final plan for the a.fib patient and his aware (9) Elevated troponin: Plan: peak HS trop 103 early in the admission no evidence of ACS likely myocardial demand ischemia in setting of volume overload from #1, rapid a.fib, rhinovirus infection, ?pneumonia, etc. (10) SARAH (obstructive sleep apnea): Plan: cont home CPAP (11) Hypothyroidism: Plan: TSH 03/2024 wnl cont synthroid (12) Autoimmune hepatitis treated with steroids: Plan: autoimmune hepatitis diagnosed July 2023 secondary to immunotherapy for renal cell ca on chronic steroids for such during previous hospital stay in March was placed on steroid burst initially was on 70mg/day weaning every 7 days by 10mg increments thus, weaned to 50mg/day on 05/05 hepatitis - 2nd to Opdivo? 2nd to hepatic congestion from volume overload? other? LFTs remain mildly high recheck in am due to extreme weakness/fatigue will check ammonia level in am ideally should be on PJP prophy until prednisone is <20mg/day use SS tmp/sulfa 1 tab M/W/F at HS for prophylaxis (13) Morbid obesity with BMI of 40.0-44.9, adult: Plan: BMI 39-40 (14) Thrombocytopenia: Plan: 40s to 70s range while here without bleeding no indication for transfusion B12/folate levels wnl platelets 38 today 2nd to Opdivo? 2nd to liver dysfunction? combination of factors? recheck every 2-3 days for stability (15) Renal cell carcinoma: Plan: stage 4 h/o right nephrectomy due to RCC follows with Dr Grijalva - cancer care clinic (16) S/P TAVR (transcatheter aortic valve replacement): Plan: last echo with normal valve function (04/17) (17) Prediabetes: Plan: a1c 6.1% in Mar 2024 certainly his BSGs will be high with the high-dose prednisone cont novolog SSI control satisfactory Plan VTE prophylaxis - Eliquis 2.5mg BID cont PT/OT when able OOB to chair with life when able discharge dispo - [facility] ? updated at bedside, 05/04 and 05/07 along with today updated by phone 05/06 Admission and Anticipated Discharge Date Admission Date: April 28, 2024 Subjective no events overnight tele - a.fib, rates lowest are upper 90s during sleep; otherwise 110s or higher denies any dyspnea at rest denies cough denies any abd pain or N/V at bedside, questions answered Review of Systems Review of Systems: gen - no fevers or chills; just weak/tired cv - no chest pain or orthopnea pulm - no wheezing or dyspnea GI - no vomiting neuro - denies back pain or paresthesias of legs Physical Exam Physical Exam: gen - morbidly obese, NAD, laying flat in bed comfortably - looks good today; pleasant mouth - MMM heart - irregularly irregular, s1 s2, 2/6 systolic murmur LSB, tachy lungs - CTA b/l, no rales, no wheeze, airation bases nearly normal; no increased work of breathing abd - soft NT ND BS+ ext - <1+ pitting edema feet; trace edema of shins; edema b/l arms improved; pulses b/l feet 2+ psych - a/o x 3 skin - numerous optifoams b/l arms and shins neuro - no proximal muscle weakness of arms; handgrip 5/5; proximal muscle weakness of b/l hips - at best 3/5 strength with hip flexion; ankle dorsifle xion/plantarflexion 5/5 b/l Results & Data Results & Data Vital Signs (Past 12 Hours) Vital Signs Temp Pulse Pulse Resp BP Pulse Ox O2 Del Method 05/08/24 15:24 36.4 C L 98 H 20 104/74 95 Nasal Cannula 05/08/24 11:12 36.3 C L 110 H 20 105/71 96 Nasal Cannula 05/08/24 07:10 36.6 C 112 H 20 111/78 98 Nasal Cannula 05/08/24 07:00 106 H O2 Flow Rate 05/08/24 15:24 2 05/08/24 11:12 2 05/08/24 07:10 2 05/08/24 07:00 Laboratory Results Laboratory Results - last 24 hr 05/07/24 05/08/24 05/08/24 21:13 06:20 08:16 WBC 7.85 RBC 3.58 L Hgb 8.7 L Hct 30.8 L MCV 86.0 MCH 24.3 L MCHC 28.2 L RDW Std Deviation 67.4 H RDW Coeff of Nick 22.3 H Plt Count 38 L Absolute Nucleated RBC 0.93 H Nucleated RBC % (auto) 11.8 Sodium 135 L Potassium 4.9 Chloride 102 Carbon Dioxide 26 Anion Gap 7 BUN 43 H Creatinine 3.45 H Est Cr Clr Drug Dosing 30.2 eGFR 18.32 BUN/Creatinine Ratio 12.5 Glucose 118 H POC Glucose 141 H 108 H Calcium 9.2 05/08/24 05/08/24 12:13 17:06 WBC RBC Hgb Hct MCV MCH MCHC RDW Std Deviation RDW Coeff of Nick Plt Count Absolute Nucleated RBC Nucleated RBC % (auto) Sodium Potassium Chloride Carbon Dioxide Anion Gap BUN Creatinine Est Cr Clr Drug Dosing eGFR BUN/Creatinine Ratio Glucose POC Glucose 133 H 135 H Calcium PG Care Time/CCT Total # of Minutes Spent Total Time Spent with Patient: Total time spent is greater than 50% in coordination of care (as documented) at patient's floor/unit and/or counseling patient: Coding Level of Care Code 65924 SUB INP/OBS CARE 3/50MIN Diagnoses End stage renal disease on dialysis N18.6; Z99.2 Acute pulmonary edema J81.0 Weakness R53.1 Acute hypoxic respiratory failure J96.01 Pneumonia J18.9 Rhinovirus B34.8 MARILEE (acute kidney injury) N17.9 Atrial fibrillation with rapid ventricular response I48.91 Elevated troponin R79.89 SARAH (obstructive sleep apnea) G47.33 Hypothyroidism E03.9 Autoimmune hepatitis treated with steroids K75.4 Morbid obesity with BMI of 40.0-44.9, adult E66.01; Z68.41 Thrombocytopenia D69.6 Renal cell carcinoma C64.9 S/P TAVR (transcatheter aortic valve replacement) Z95.2 Prediabetes R73.03
[2024-05-09 07:34] LABS: Anion Gap 13 (3-11); Blood Urea Nitrogen 72 mg/dl (6-23); Carbon Dioxide 23 mmol/L (21-32); Chloride 98 mmol/L (98-107); Potassium 5.4 mmol/L (3.5-5.1); Sodium 134 mmol/L (136-145)
[2024-05-09 07:35] LABS: Alanine Aminotransferase 68 U/L (7-52); Albumin Level 2.9 gm/dl (3.4-5.0); Alkaline Phosphatase 231 U/L (34-104); Aspartate Aminotransferase 51 U/L (13-39); Bilirubin Direct 0.9 mg/dl (0-0.2); Bilirubin,Total 1.7 mg/dl (0.2-1.0); Calcium 9.7 mg/dl (8.6-10.3); Creatine Kinase < 10 U/L (30-223); Creatinine Clr Calc Pharmacy 21.7 ml/min; Glucose 136 mg/dl (70-99(Fasting)); Total Protein 5.5 gm/dl (6.0-8.3)
[2024-05-09] MEDS: levoFLOXacin 500 MG TAB PO ONE (08:59)
--- NOTE | 2024-05-09 09:25 | Nephrology Progress Note ---
Date of Service May 09, 2024 Assessment & Plan (1) End stage renal disease on dialysis: (2) Anemia: (3) Renal cell carcinoma: (4) Acute pulmonary edema: (5) Weakness: (6) Hyperkalemia: (7) Pulmonary edema: (8) Congestive heart failure (CHF): Plan 68-year-old gentleman with end-stage kidney disease with solitary kidney and hypertensive nephrosclerosis, Started on hemodialysis after having had tunneled dialysis catheter on 04/16/2024. He was getting outpatient dialysis but admitted with generalized weakness, pulmonary congestion and significant volume overload and over last few days had UF challenge and more than 2o kg weight loss. Overall feeling better but generally weak. blood pressure stable. He seems to have reached dry weight.. --Plan for dialysis Friday and continue Friday, Friday, Friday dialysis. --Midodrine 10 mg prior to dialysis --continue renal vitamin. --Right arm nephrology precaution --Dose medications for less than 10. Admission and Anticipated Discharge Date Admission Date: April 28, 2024 Subjective Mr. Guadalupe was seen and evaluated this morning with at bedside. He reports generally feeling slightly better although still feels tired and exhausted. Denies shortness of breath. Had dialysis Friday. Review of Systems Review of Systems: Detailed review of system was done and pertinent positives and negatives are mentioned above. Physical Exam Constitutional: WD/WN, vitals as above no acute distress Eyes: + anicteric sclerae Neck: normal visual inspection Respiratory: Auscultation: + diminished lung sounds Cardiovascular: Rate/Rhythm: regular rate and regular rhythm Heart Sounds: normal S1 and normal S2 Extremities: + edema (trace b/l LE edema) and + AV fistula (Rt IJ TDC) Skin: + turgor decreased, + lesion, + skin atr ophy and + ecchymosis Neurologic: no focal motor deficits and not confused Psychiatric: Orientation: alert and oriented x 3 Results & Data Vital Signs (Past 12 Hours) Vital Signs Temp Pulse Pulse Pulse Resp BP Pulse Ox 05/09/24 09:00 65 109/76 05/09/24 07:53 36.3 C L 89 18 96/66 L 97 05/09/24 05:43 80 05/09/24 04:10 36.4 C L 102 H 18 99/58 L 99 05/09/24 00:55 05/09/24 00:00 36.4 C L 100 H 18 112/78 94 05/08/24 21:44 109 H O2 Del Method O2 Flow Rate 05/09/24 09:00 05/09/24 07:53 Nasal Cannula 2 05/09/24 05:43 05/09/24 04:10 CPAP 2 05/09/24 00:55 CPAP 05/09/24 00:00 CPAP 2 05/08/24 21:44 PG Care Time/CCT Total # of Minutes Spent Total Time Spent with Patient: Total time spent is greater than 50% in coordination of care (as documented) at patient's floor/unit and/or counseling patient: Coding Level of Care Code 52340 SUB INP/OBS CARE 235MIN Diagnoses End stage renal disease on dialysis N18.6; Z99.2 Anemia D64.9 Renal cell carcinoma C64.9 Acute pulmonary edema J81.0 Weakness R53.1 Hyperkalemia E87.5 Pulmonary edema J81.0 Chronicity: acute Congestive heart failure (CHF) I50.9 (7) Pulmonary edema Chronicity: acute Qualified Code(s): J81.0 - Acute pulmonary edema
[2024-05-09] MEDS: SODIUM ZIRCONIUM CYCLOSILICATE 10 GM PACKET PO STA (09:37)
[2024-05-09] MEDS: SODIUM ZIRCONIUM CYCLOSILICATE 10 GM PACKET PO SCH (11:03)
--- NOTE | 2024-05-09 19:05 | Hospitalist Progress Note ---
Date of Service May 09, 2024 Assessment & Plan (1) End stage renal disease on dialysis: Plan: 68yo male - recent initiation of dialysis (M/W/F) for development of ESRD 03/2024, solitary kidney status (previous right nephrectomy for renal cell ca), A-fib, stage 4 renal cell cancer previously on Opdivo, HTN, hypercholesterolemia, hypothyroidism, and SARAH. Presented 04/28/24 with b/l leg weakness. BioFire positive for entero- /rhinovirus. CXR with pulmonary edema and new bilateral basilar infiltrates with small pleural effusions. Since admission -- s/p 9 serial HD sessions due to severe volume overload. Appreciate [facility] [place] for [place] needs. HD to resume on Friday, 05/10. Volume status MARKEDLY improved since admission. Orthopnea & dyspnea had resolved. Unfortunately had an episode last pm of dyspnea - fortunately it resolved quickly with use of his CPAP. He does look more volume up today vs yesterday. Continue midodrine to prevent intra-HD hypotension. Unfortunately we have been unable to get a dry weight on him as he cannot stand and attempts to get him OOB have also been unsuccessful (to zero the bedscale). (2) Acute hypoxic respiratory failure: Plan: multifactorial - pulmonary edema from ESRD status (and potentially liver dysfunction & cardiac issues), rhinovirus infection, +/- pneumonia treating individual components stable on NC O2 during the day CPAP with sleep (3) Weakness: Plan: mainly proximal muscle weakness of hips shoulder/arm strength largely preserved distal strength of feet/ankles 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 lumbar spine issue (unlikely as he does not have back pain or radicular pain of either leg)? check B1 level - pending checked CPK - wnl B12 level -605 consider MRI brain consider MRI lumbar spine cont PT/OT as tolerated (4) Autoimmune hepatitis treated with steroids: Plan: autoimmune hepatitis diagnosed July 2023 secondary to immunotherapy for renal cell ca has been on chronic steroids for such since that time during previous hospital stay in March 2024 was placed on steroid burst for this issue as well as concern that immunotherapy was contributing to his thrombocytopenia initially was on 70mg/day weaning every 7 days by 10mg increments thus, weaned to 50mg/day on 05/05 hepatitis - 2nd to Opdivo? 2nd to hepatic congestion from volume overload? other? HepA, HepB, and HepC ab's were NEGATIVE in 06/2023 LFTs remain mildly high today ammonia level wnl ideally should be on PJP prophy until prednisone is <20mg/day use SS tmp/sulfa 1 tab M/W/F at HS for prophylaxis will get a formal GI consult while here to seek out their opinion about his LFTs will also get a dedicated liver u/s for more information although the most recent CT a/p showed an anatomically normal liver (5) Pneumonia: Plan: suspected b/l basilar clinically resolved could have been viral pneumonia 2nd to rhinovirus could have been bacterial superinfection early in admission --> received rocephin/zithromax then changed to cefadroxil 05/02 and 05/03 --> worsening respiratory status procal 4 on 05/03 in light of rising procalcitonin and worsening respiratory status abx changed to IV zosyn on 05/03 received zosyn until 05/07 then gave PO levaquin 750mg x 1 on 05/07 then 500mg x 1 today then stop all abx (6) Rhinovirus: Plan: droplet precautions stopped clinically resolved (7) MARILEE (acute kidney injury): Plan: 03/2024 with ultimate need for HD see above (8) Atrial fibrillation with rapid ventricular response: Plan: continues with suboptimal rate control despite meto succ BID + cardizem CD 120mg HS cont Eliquis 2.5mg BID I corresponded with Dr Mitchell from [facility] regarding his poorly controlled a.fib If after he achieves euvolemia he continues with poor rate control 1 option would be AV maggie ablation with pacer placement poor candidate for amiodarone due to abnormal LFTs & autoimmune hepatitis suspect next week we will make a final plan for the a.fib patient and his aware (9) Elevated troponin: Plan: peak HS trop 103 early in the admission no evidence of ACS likely myocardial demand ischemia in setting of volume overload from #1, rapid a.fib, rhinovirus infection, ?pneumonia, etc. (10) SARAH (obstructive sleep apnea): Plan: cont home CPAP (11) Hypothyroidism: Plan: TSH 03/2024 wnl cont synthroid (12) Morbid obesity with BMI of 40.0-44.9, adult: Plan: BMI 39-40 (13) Thrombocytopenia: Plan: 40s to 70s range while here without bleeding no indication for transfusion B12/folate levels wnl latest platelet count was 38 2nd to Opdivo? 2nd to liver dysfunction? combination of factors? recheck in am for stability (14) Renal cell carcinoma: Plan: stage 4 h/o right nephrectomy due to RCC follows with Dr Grijalva - cancer care clinic (15) S/P TAVR (transcatheter aortic valve replacement): Plan: last echo with normal valve function (04/17) (16) Prediabetes: Plan: a1c 6.1% in Mar 2024 certainly his BSGs will be high with the high-dose prednisone cont novolog SSI control satisfactory (17) Hyperkalemia: Plan: 2nd to ESRD status 2nd to recent addition of tmp/sulfa SS for PJP prophylaxis (possible) start lokelma TID repeat BMP am scheduled for HD tomorrow Plan VTE prophylaxis - Eliquis 2.5mg BID cont PT/OT when able OOB to chair with life when able discharge dispo - [facility] ? updated at bedside, 05/04, 05/07, 05/08, and 05/09 updated by phone 05/06 Admission and Anticipated Discharge Date Admission Date: April 28, 2024 Subjective had episode of dyspnea last pm had had a bowel movement and shortly after felt dyspneic was placed on his CPAP and within 20-30 minutes breathing returned to normal no orthopnea, dyspnea, or other pulmonary symptoms since that time the rest of today was uneventful he is reporting a better appetite tele - continues to have significant a.fib with RVR even at rest Review of Systems Review of Systems: gen - no fevers or chills cv - no chest pain despite the event last pm GI - no abd pain or N/V pulm - not much cough Physical Exam Physical Exam: gen - morbidly obese, NAD, laying flat in bed comfortably much like yesterday; very pleasant mouth - MMM neck - mild JVD today heart - irregularly irregular, s1 s2, 2/6 systolic murmur LSB, tachy lungs - b/l basilar rales, no wheeze, airation bases normal; no increased work of breathing abd - soft NT ND BS+ ext - 1+ pitting edema feet; 1+ edema of shins; pulses b/l feet 2+ psych - a/o x 3 skin - numerous optifoams b/l arms and shins Results & Data Results & Data Vital Signs (Past 12 Hours) Vital Signs Temp Pulse Pulse Pulse Resp BP Pulse Ox 05/09/24 18:04 05/09/24 16:17 36.3 C L 111 H 18 110/74 94 05/09/24 12:59 102 H 05/09/24 12:01 36.6 C 98 H 20 97/66 L 96 05/09/24 09:00 65 109/76 05/09/24 07:53 36.3 C L 89 18 96/66 L 97 05/09/24 07:25 Pulse Ox O2 Del Method O2 Del Method O2 Flow Rate O2 Flow Rate 05/09/24 18:04 92 Room Air 3 05/09/24 16:17 Nasal Cannula 2 05/09/24 12:59 05/09/24 12:01 Room Air 05/09/24 09:00 05/09/24 07:53 Nasal Cannula 2 05/09/24 07:25 Nasal Cannula 2 Laboratory Results Laboratory Results - last 24 hr 05/08/24 05/09/24 05/09/24 21:30 06:15 08:33 Sodium 134 L Potassium 5.4 H Chloride 98 Carbon Dioxide 23 Anion Gap 13 H BUN 72 H D Creatinine 4.81 H* D Est Cr Clr Drug Dosing 21.7 eGFR 12.30 BUN/Creatinine Ratio 15.0 Glucose 136 H POC Glucose 137 H 133 H Calcium 9.7 Total Bilirubin 1.7 H Direct Bilirubin 0.9 H AST 51 H ALT 68 H Alkaline Phosphatase 231 H Ammonia 20.0 Total Creatine Kinase < 10 L Total Protein 5.5 L Albumin 2.9 L Whole Bld Vitamin B1 Pending 05/09/24 05/09/24 12:13 16:56 Sodium Potassium Chloride Carbon Dioxide Anion Gap BUN Creatinine Est Cr Clr Drug Dosing eGFR BUN/Creatinine Ratio Glucose POC Glucose 165 H 131 H Calcium Total Bilirubin Direct Bilirubin AST ALT Alkaline Phosphatase Ammonia Total Creatine Kinase Total Protein Albumin Whole Bld Vitamin B1 PG Care Time/CCT Total # of Minutes Spent Total Time Spent with Patient: Total time spent is greater than 50% in coordination of care (as documented) at patient's floor/unit and/or counseling patient: Coding Level of Care Code 56898 SUB INP/OBS CARE 3/50MIN Diagnoses End stage renal disease on dialysis N18.6; Z99.2 Acute hypoxic respiratory failure J96.01 Weakness R53.1 Autoimmune hepatitis treated with steroids K75.4 Pneumonia J18.9 Rhinovirus B34.8 MARILEE (acute kidney injury) N17.9 Atrial fibrillation with rapid ventricular response I48.91 Elevated troponin R79.89 SARAH (obstructive sleep apnea) G47.33 Hypothyroidism E03.9 Morbid obesity with BMI of 40.0-44.9, adult E66.01; Z68.41 Thrombocytopenia D69.6 Renal cell carcinoma C64.9 S/P TAVR (transcatheter aortic valve replacement) Z95.2 Prediabetes R73.03 Hyperkalemia E87.5
[2024-05-09] MEDS ORDERED: Nursing to Pharmacy Communication SCH (19:15)
--- NOTE | 2024-05-09 23:15 | Communication Note ---
Date of Service: May 09, 2024 Notified by RN that patient abruptly desatted to 60s while turning/cleaning patient. Supplemental O2 increased to 15L via oxymask but SpO2 would not rise above 79%. Patient evaluated at bedside, denied overt shortness of breath. RT was also present. Stat CXR demonstrated minor improvement in right lung field but was overall suggestive of ongoing pulmonary edema. ABG demonstrated mild metabolic acidosis but no hypercapnia. Patient placed on CPAP with 6L O2 with subsequent improvement in SpO2 to mid-90s.
[2024-05-09 23:36] LABS: iSTAT Arterial Blood Gas HCO3 17 meg/L (19-24); iSTAT Arterial Blood Gas pCO2 35 mmHg (35-46); iSTAT Arterial Blood Gas pH 7.31 (7.35-7.45); iSTAT Arterial Blood Gas pO2 53 mmHg (80-95); iSTAT Carbon Dioxide 18 mmol/L (24-31); iSTAT Hematocrit 32 % (42-52); iSTAT Hemoglobin 10.9 g/dl (14.0-18.0); iSTAT Potassium 5.3 mmol/L (3.3-5.0); iSTAT Sodium 129 mmol/L (135-144)
--- NOTE | 2024-05-10 00:18 | XRay Report ---
Exam(s): XR CXR 1 VIEW EXAM: XR Chest, 1 View CLINICAL HISTORY: Reason for exam: Oxygen desaturation. TECHNIQUE: Frontal view of the chest. COMPARISON: May 02, 2024 FINDINGS: Lungs: Hazy increased density in the right lower hemithorax with partially obscured diaphragm consistent with small right pleural effusion and/or right basilar consolidation, similar to previous. Prominent pulmonary vasculature and possible mild pulmonary edema. Pleural space: See above. Heart: Borderline mild cardiomegaly. Mediastinum: Unremarkable. Normal mediastinal contour. Bones/joints: Osteophytosis throughout the mid to lower thoracic spine. No acute fracture. Tubes, lines and devices: There is a right-sided tunneled dialysis catheter with the tip in the superior vena cava. IMPRESSION: 1. Hazy increased density in the right lower hemithorax with partially obscured diaphragm consistent with small right pleural effusion and/or right basilar consolidation, similar to previous. 2. Prominent pulmonary vasculature and possible mild pulmonary edema. 3. There is a right-sided tunneled dialysis catheter with the tip in the superior vena cava. 4. Borderline mild cardiomegaly. Electronically signed by: Brock Tucker MD 05/10/24 00:17 AM
--- NOTE | 2024-05-10 02:19 | Ultrasound Report ---
EXAM: US liver CLINICAL HISTORY: hepatitis TECHNIQUE: Limited ultrasound of the liver and gallbladder was performed in greyscale and Doppler. Multiple images were obtained in transverse and longitudinal planes. COMPARISON: No prior studies are available for comparison. FINDINGS: Liver: Liver size: measures 17.9 cm. The liver appears enlarged in size with heterogeneous echotexture and slightly irregular borders. No evidence of focal lesions, cysts, or masses. Hepatic vasculature appears normal. Gallbladder: Gallbladder size: Gallbladder is visualized and not well distended at the time of scan with normal shape. A slight increase in gall bladder wall thickness measures 0.36 cm(which may be non-specific due to an undistended gall bladder) No gallstones or pericholecystic fluid were noted. No evidence of gallbladder wall edema or signs of acute cholecystitis. Biliary Tree: Common bile duct diameter: 0.36 cm. The common bile duct is within normal limits in caliber and not dilated. No evidence of choledocholithiasis or biliary obstruction. IMPRESSION: 1. Moderate hepatomegaly with heterogeneous parenchymal echo pattern and slightly irregular borders(parenchymal liver disease) for correlation with LFT. 2. Slight increase in gall bladder wall thickness (whoever better assesses with distended gall bladder will be better). Electronically signed by Scott Venegas 05-10-2024 02:18 AM
--- NOTE | 2024-05-10 09:59 | Nephrology Progress Note ---
Date of Service May 10, 2024 Assessment & Plan (1) End stage renal disease on dialysis: (2) Anemia: (3) Renal cell carcinoma: (4) Acute pulmonary edema: (5) Weakness: (6) Hyperkalemia: (7) Pulmonary edema: (8) Congestive heart failure (CHF): Plan 68-year-old gentleman with end-stage kidney disease with solitary kidney and hypertensive nephrosclerosis, Started on hemodialysis after having had tunneled dialysis catheter on 04/16/2024. He was getting outpatient dialysis but admitted with generalized weakness, pulmonary congestion and significant volume overload and over last few days had UF challenge and more than 2o kg weight loss. Overall feeling better but generally weak. blood pressure stable. He seems to have reached EDW, seems close to 138 to 139 kg. Hb 10.9 --dialysis now and continue Friday, Friday, Friday dialysis, UF 1.5 to 2L or as tolerated --Midodrine 10 mg prior to dialysis --continue renal vitamin. --Right arm nephrology precaution --Dose medications for less than 10. Admission and Anticipated Discharge Date Admission Date: April 28, 2024 Subjective Mr. Guadalupe was seen and evaluated this morning during HD. He reports generally feeling better and making slow progress. Denies shortness of breath. Tolerating dialysis, BP relatively low. Review of Systems Review of Systems: Detailed review of system was done and pertinent positives and negatives are mentioned above. Physical Exam Constitutional: WD/WN, vitals as above no acute distress Respiratory: Auscultation: + diminished lung sounds Cardiovascular: Rate/Rhythm: regular rate and regular rhythm Heart Sounds: normal S1 and normal S2 Extremities: + edema (trace b/l LE edema) and + AV fistula (Rt IJ TDC) Skin: + turgor decreased, + lesion, + skin atr ophy and + ecchymosis Neurologic: no focal motor deficits and not confused Psychiatric: Orientation: alert and oriented x 3 Results & Data Vital Signs (Past 12 Hours) Vital Signs Temp Pulse Resp BP Pulse Ox O2 Del Method O2 Flow Rate 05/10/24 08:55 Nasal Cannula 4 05/10/24 07:44 36.7 C 87 20 119/84 99 Nasal Cannula 4 05/10/24 06:12 99 Nasal Cannula 6 05/10/24 03:45 36.5 C 76 18 111/76 94 BiPAP 05/10/24 01:15 96 CPAP 6 05/10/24 00:10 93 CPAP 6 05/09/24 23:27 88 L CPAP 6 05/09/24 23:14 83 L CPAP 6 05/09/24 22:59 79 L Oxymask 15 05/09/24 22:58 74 L Nasal Cannula 6 05/09/24 22:55 32 H 68 L Nasal Cannula 4 05/09/24 22:45 36.7 C 73 18 121/76 91 Nasal Cannula 4 PG Care Time/CCT Total # of Minutes Spent Total Time Spent with Patient: Total time spent is greater than 50% in coordination of care (as documented) at patient's floor/unit and/or counseling patient: Coding Level of Care Code 10981 SUB INP/OBS CARE MIN Diagnoses End stage renal disease on dialysis N18.6; Z99.2 Anemia D64.9 Renal cell carcinoma C64.9 Acute pulmonary edema J81.0 Weakness R53.1 Hyperkalemia E87.5 Pulmonary edema J81.0 Chronicity: acute Congestive heart failure (CHF) I50.9 (7) Pulmonary edema Chronicity: acute Qualified Code(s): J81.0 - Acute pulmonary edema
[2024-05-10 10:37] LABS: Hematocrit (blood only) 29.7 % (42.0-52.0); Hemoglobin 8.4 g/dl (14.0-18.0); Mean Corpuscular Hgb Conc 28.3 g/dL (32.0-36.0); Mean Corpuscular Volume 84.9 fL (80.0-100.0); Nucleated RBC # (auto) 0.53 K/uL (0.00-0.12); Nucleated RBC % (auto) 7.7 %; Platelet Count 42 K/uL (130-400); RDW Coefficient of Variation 22.5 % (11.5-14.5); RDW Standard Deviation 64.8 fL (36.4-46.3); White Blood Count 6.85 K/ul (4.8-10.8)
[2024-05-10 10:52] LABS: BUN Creatinine Ratio 14.8 (10-20); Calcium 9.1 mg/dl (8.6-10.3); Creatinine Clr Calc Pharmacy 15.5 ml/min; Potassium 4.9 mmol/L (3.5-5.1)
--- NOTE | 2024-05-10 11:59 | Gastrointestinal Consultation ---
Date of Consultation May 10, 2024 Assessment & Plan (1) Autoimmune hepatitis treated with steroids: Patient has a history of renal cell carcinoma with history of elevated LFTs. In the past it was felt to be autoimmune hepatitis and he had been treated with steroids. no family history of liver disease. hepatitis panel was negative last year. he tells me he started to have issue with his liver functions after he started treatments for his renal cell carcinoma. Current rise in LFTs may be from carcinoma treatment as well as fluid overload. Currently, he is receiving dialysis. - continue to trend LFTs. - continue with prednisone 50mg daily. - will discuss case with Dr. Hernandez, further recommendations to follow. Supervising Physician Co-Signing Physician Notes I personally saw and examined the patient. I have reviewed the chart and agree with the documentation provided by the HUMAN RESOURCE PROFESSIONAL including discussion about the assessment, treatment and plan. Briefly, 68 year old gentleman with a past medical history of ESRD on dialysis (M/W/F), CHF, s/p TAVR, A-fib, RCC, HTN, hypercholesterolemia, hypothyroidism, and SARAH who presented to ED on 04/28/24 for BLE weakness starting on the day of arrival. Patient has renal cell carcinoma and recently started treatment with Opdivo. During his stay, he was found to have elevated LFTs with AST and ALT in the 400s. In the past he had been diagnosed with autoimmune hepatitis in July 2023 felt to be secondary to immunotherapy for renal cell carcinoma. He has been on chronic steroids for such since that time. Currently on 50 mg of prednisone he is clinically stable. His ALT is mildly elevated in the 50s. He is currently off Opdivo and the plan is to go back on this therapy as per oncology. Supportive care, continue steroids as you are doing, if he reflares can consider adding Imuran versus just stopping Opdivo. At this point however, liver is stable and would continue the course. GI has no other recommendations. We will sign off History of Present Illness Reason for Consultation: hepatitis, etiology? secondary to immunotherapy Requesting Physician: Shivam Thurston MD Attending Physician: Shivam Thurston MD History of Present Illness Patient is a 68 year old gentleman with a past medical history of ESRD on dialysis (M/W/F), CHF, s/p TAVR, A-fib, RCC, HTN, hypercholesterolemia, hypothyroidism, and SARAH who presented to ED on 04/28/24 for BLE weakness starting on the day of arrival. Patient has renal cell carcinoma and recently started treatment and dialysis 2 weeks prior to arrival at ED. During his stay, he was found to have elevated LFTs. In the past he had been diagnosed with autoimmune hepatitis in July 2023 felt to be secondary to immunotherapy for renal cell carcinoma. He has been on chronic steroids for such since that time. no jaundice, itching, acholic stools. dark urine. 05/09/24 T bili 1.7, d bili 0.9, AST 51, ALT 68, Alk phos 231. nh3 20. hepatitis panel was negative in 06/2023. no family history of liver disease. rest of GI ros are negative. US Moderate hepatomegaly with heterogeneous parenchymal echo pattern and slightly irregular borders(parenchymal liver disease) for correlation with LFT. 2. Slight increase in gall bladder wall thickness (whoever better assesses with distended gall bladder will be better). CT 04/17/24 had unremarkable liver. Allergies Allergy/AdvReac Type Severity Reaction Status Date / Time No Known Allergies Allergy Verified 04/28/24 19:55 Home Medications Medication Instructions Recorded Confirmed Type multivitamin 1 tab PO DAILY 11/11/18 04/28/24 History cholecalciferol (vitamin D3) 50 2,000 unit PO DAILY #30 tabs 10/15/22 04/28/24 History mcg (2,000 unit) tablet amoxicillin 500 mg capsule 2,000 mg PO DIRECTED PRN 1 HR 07/07/23 04/28/24 History PRIOR TO DENTAL APPT. betamethasone, augmented 0.05 % 1 applic topical BID PRN Skin 07/07/23 04/28/24 History topical cream Irritation levothyroxine 200 mcg tablet 200 mcg PO QAM 08/21/23 04/28/24 History ferrous sulfate 325 mg (65 mg 325 mg PO DAILY 11/05/23 04/28/24 History iron) tablet (iron) pantoprazole 40 mg tablet,delayed 40 mg PO QAM 11/17/23 04/28/24 History release apixaban 2.5 mg tablet (Eliquis) 2.5 mg PO BID #60 tabs 04/19/24 04/28/24 Rx diltiazem HCl 30 mg tablet 30 mg PO Q6H #120 tabs 04/19/24 04/28/24 Rx metoprolol succinate 25 mg 75 mg (3 x 25 mg) PO QAM #90 tabs 04/19/24 04/28/24 Rx tablet,extended release 24 hr metoprolol succinate 50 mg 100 mg (2 x 50 mg) PO QPM #60 tabs 04/19/24 04/28/24 Rx tablet,extended release 24 hr prednisone 10 mg tablet See Taper PO DIRECTED #196 tabs 04/19/24 04/28/24 Rx vitamin B complex and vitamin C 1 cap PO QAM #30 caps 04/19/24 04/28/24 Rx no.20-folic acid 1 mg capsule (Renal Caps) midodrine 10 mg tablet 10 mg PO TID #30 tabs 04/27/24 04/28/24 Rx bumetanide 2 mg tablet 2 mg PO DAILY 04/28/24 04/28/24 History Patient History Medical History Atrial fibrillation SARAH (obstructive sleep apnea) Hypercholesterolemia Hypertension Hypothyroidism Acute GI bleeding 2nd duodenal ulcer - 2023 Coagulopathy Heart failure with preserved ejection fraction Renal cell carcinoma stage 4 CKD (chronic kidney disease) stage 4, GFR 15-29 ml/min Surgical History S/p nephrectomy right Family History Mother Cancer colon ca; age 76 Father CHF (congestive heart failure) age 78 Social History Smoking Status: Never smoker Do You Dip or Chew Tobacco: No; Hx Alcohol Use: No Hx Substance Use: No Preferred Language: Japanese Communication Ability: Effective Healthcare Administration Internship Required: No Beliefs That Will Affect Care: None marital status: Current Living Situation: Spouse Current Living Situation Comment: live in [facility] near [facility] current occupational status: 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 [facility] How many Children do You have: 2 Feels Safe at Home: Yes Assistive Devices: Cane, CPAP, Walker and Wheelchair Review of Systems Review of Systems: All systems reviewed & are unremarkable except as noted in HPI & below Physical Exam Constitutional: WD/WN, vitals as above Respiratory: normal respiratory effort, lungs clear to auscultation Cardiovascular: Rate/Rhythm: regular rate and regular rhythm Gastrointestinal (Abdomen): normal bowel sounds, soft, nontender, no hepatosplenomegaly Psychiatric: Orientation: alert and oriented x 3 Affect: euthymic affect Results & Data Vital Signs (Past 12 Hours) Vital Signs Temp Pulse Pulse Pulse Resp BP BP 05/10/24 11:30 130 H 98/82 L 05/10/24 11:00 120 H 104/71 05/10/24 10:30 114 H 99/55 L 05/10/24 10:00 120 H 102/74 05/10/24 09:32 107 H 116/81 05/10/24 09:25 97.7 F 97 H 05/10/24 08:55 05/10/24 07:44 98.1 F 87 20 119/84 05/10/24 07:00 77 05/10/24 06:12 05/10/24 03:45 97.7 F 76 18 111/76 05/10/24 01:15 05/10/24 00:10 Pulse Ox O2 Del Method O2 Flow Rate 05/10/24 11:30 05/10/24 11:00 05/10/24 10:30 05/10/24 10:00 05/10/24 09:32 05/10/24 09:25 05/10/24 08:55 Nasal Cannula 4 05/10/24 07:44 99 Nasal Cannula 4 05/10/24 07:00 05/10/24 06:12 99 Nasal Cannula 6 05/10/24 03:45 94 BiPAP 05/10/24 01:15 96 CPAP 6 05/10/24 00:10 93 CPAP 6 Coding Level of Care Code 92338 INT INP/OBS CARE 2MIN Diagnoses Autoimmune hepatitis treated with steroids K75.4
--- NOTE | 2024-05-10 16:27 | Cardiology Consultation ---
Date of Consultation May 10, 2024 Assessment & Plan (1) Atrial fibrillation: (2) Mitral regurgitation: (3) S/P TAVR (transcatheter aortic valve replacement): Plan 1. Atrial fibrillation: His outpatient records suggest reasonable control of atrial fibrillation based on 2 Holter monitors over the years. When he was admitted to our facility most recently he continued to have rapid ventricular rates that were expected to improve as his clinical condition improved. Anguiano amira, during this entire admission his had elevated ventricular rates despite beta-blockers and calcium channel blockers. Currently struggling with hypotension and requiring midodrine to facilitate dialysis. It would seem reasonable to adopt a more permanent and effective strategy. We discussed the option of AV node ablation and pacemaker implantation. With preserved LV systolic function he would seem to be a reasonable candidate for single-chamber pacemaker. 2 logistical issues need to be addressed. 1 would be the need for additional dialysis access. Currently has a nonfunctioning graft in the right brachial region. Unclear if he can have this revised or if he will need additional access in the left upper extremity. Placement of a transvenous pacemaker at either site could compromise efforts to obtain another graft. Additionally, the patient has persistent thrombocytopenia and may require platelet transfusion prior to any operative intervention. Currently on apixaban. 2. Aortic stenosis: Status post TAVR in 2022. Slightly elevated trans aortic gradients. Valve poorly visualized on recent examination. No believe this is a clinical concern currently. 3. Mitral regurgitation: Characterized as mild on his last echocardiogram History of Present Illness Reason for Consultation: Atrial fibrillation Requesting Physician: Bertrand Attending Physician: Shivam Thurston MD History of Present Illness The patient is a 68-year-old gentleman with a history of aortic stenosis status post TAVR and permanent atrial fibrillation. He was admitted to our facility in March of this year with weakness and progressive decline in renal function. Patient presented on 04/28/2024 with symptoms of weakness. At that time he had difficulty ambulating. The nurse evaluation suggested volume overload and rapidly conducted atrial fibrillation. He was started on renal replacement therapy and has undergone extensive dialysis for volume removal since admission. Unfortunately, his atrial fibrillation has also been difficult to control. He is having periods of hypotension and requires midodrine to facilitate dialysis. He is also noted to have persistent thrombocytopenia. He continues to have severe weakness, he has not ambulated much since admission. Not currently aware of palpitations. Not describing dizziness or lightheadedness. Allergies Allergy/AdvReac Type Severity Reaction Status Date / Time No Known Allergies Allergy Verified 04/28/24 19:55 Home Medications Medication Instructions Recorded Confirmed Type multivitamin 1 tab PO DAILY 11/11/18 04/28/24 History cholecalciferol (vitamin D3) 50 2,000 unit PO DAILY #30 tabs 10/15/22 04/28/24 History mcg (2,000 unit) tablet amoxicillin 500 mg capsule 2,000 mg PO DIRECTED PRN 1 HR 07/07/23 04/28/24 History PRIOR TO DENTAL APPT. betamethasone, augmented 0.05 % 1 applic topical BID PRN Skin 07/07/23 04/28/24 History topical cream Irritation levothyroxine 200 mcg tablet 200 mcg PO QAM 08/21/23 04/28/24 History ferrous sulfate 325 mg (65 mg 325 mg PO DAILY 11/05/23 04/28/24 History iron) tablet (iron) pantoprazole 40 mg tablet,delayed 40 mg PO QAM 11/17/23 04/28/24 History release apixaban 2.5 mg tablet (Eliquis) 2.5 mg PO BID #60 tabs 04/19/24 04/28/24 Rx diltiazem HCl 30 mg tablet 30 mg PO Q6H #120 tabs 04/19/24 04/28/24 Rx metoprolol succinate 25 mg 75 mg (3 x 25 mg) PO QAM #90 tabs 04/19/24 04/28/24 Rx tablet,extended release 24 hr metoprolol succinate 50 mg 100 mg (2 x 50 mg) PO QPM #60 tabs 04/19/24 04/28/24 Rx tablet,extended release 24 hr prednisone 10 mg tablet See Taper PO DIRECTED #196 tabs 04/19/24 04/28/24 Rx vitamin B complex and vitamin C 1 cap PO QAM #30 caps 04/19/24 04/28/24 Rx no.20-folic acid 1 mg capsule (Renal Caps) midodrine 10 mg tablet 10 mg PO TID #30 tabs 04/27/24 04/28/24 Rx bumetanide 2 mg tablet 2 mg PO DAILY 04/28/24 04/28/24 History Patient History Medical History Atrial fibrillation SARAH (obstructive sleep apnea) Hypercholesterolemia Hypertension Hypothyroidism Acute GI bleeding 2nd duodenal ulcer - 2023 Coagulopathy Heart failure with preserved ejection fraction Renal cell carcinoma stage 4 CKD (chronic kidney disease) stage 4, GFR 15-29 ml/min Surgical History S/p nephrectomy right Family History Mother Cancer colon ca; age 76 Father CHF (congestive heart failure) age 78 Social History Smoking Status: Never smoker Do You Dip or Chew Tobacco: No; Hx Alcohol Use: No Hx Substance Use: No Preferred Language: Irish Communication Ability: Effective Bandage Winding Machine Operator Required: No Beliefs That Will Affect Care: None marital status: Current Living Situation: Spouse Current Living Situation Comment: live in [facility] near [facility] current occupational status: 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 How many Children do You have: 2 Feels Safe at Home: Yes Assistive Devices: Cane, CPAP, Walker and Wheelchair Review of Systems Review of Systems: Per HPI Physical Exam Physical Exam: The patient is alert and oriented. Mood and affect appeared normal. He answered all questions appropriately. Obese HEENT: Pupils are equal and reactive to light and accommodation. Extraocular movements are intact. The sclerae are anicteric. Neuro: Cranial nerves intact Chest: Dialysis access catheter in the right upper pectoral area Lungs: Rales bilaterally. No expiratory wheezing. Mildly increased work of breathing. Cardiac: Card examination reveals an irregular rhythm and rapid rate. Pulses: The patient has palpable radial pulses bilaterally that are equal in in tensity Extremities: There was no evidence of hypoperfusion. There is no cyanosis or clubbing. Moderate lower extremity edema Skin: I did not appreciate any rashes on examination today. Severe ecchymosis on both arms Results & Data Vital Signs (Past 12 Hours) Vital Signs Temp Pulse Pulse Pulse Resp BP BP 05/10/24 15:42 36.6 C 114 H 20 110/73 05/10/24 13:35 36.5 C 120 H 108/74 05/10/24 13:30 130 H 86/73 L 05/10/24 13:01 142 H 05/10/24 13:00 118 H 93/58 L 05/10/24 12:30 125 H 89/66 L 05/10/24 12:00 119 H 81/64 L 05/10/24 11:30 130 H 98/82 L 05/10/24 11:00 120 H 104/71 05/10/24 10:30 114 H 99/55 L 05/10/24 10:00 120 H 102/74 05/10/24 09:32 107 H 116/81 05/10/24 09:25 36.5 C 97 H 05/10/24 08:55 05/10/24 07:44 36.7 C 87 20 119/84 05/10/24 07:00 77 05/10/24 06:12 Pulse Ox O2 Del Method O2 Flow Rate 05/10/24 15:42 96 Nasal Cannula 3 05/10/24 13:35 05/10/24 13:30 05/10/24 13:01 05/10/24 13:00 05/10/24 12:30 05/10/24 12:00 05/10/24 11:30 05/10/24 11:00 05/10/24 10:30 05/10/24 10:00 05/10/24 09:32 05/10/24 09:25 05/10/24 08:55 Nasal Cannula 4 05/10/24 07:44 99 Nasal Cannula 4 05/10/24 07:00 05/10/24 06:12 99 Nasal Cannula 6 Laboratory Results Abnormal Lab Results 05/09/24 05/09/24 05/09/24 16:56 20:13 23:19 WBC RBC Hgb POC Hgb 10.9 L Hct POC Hct 32 L MCV MCH MCHC RDW Std Deviation RDW Coeff of Nick Plt Count Absolute Nucleated RBC Nucleated RBC % (auto) POC pH 7.31 L POC pCO2 35 POC pO2 53 L POC HCO3 17 L POC Total CO2 18 L POC Base Excess -9.0 POC ABG O2 Sat 84.0 L POC Sodium 129 L Sodium POC Potassium 5.3 H Potassium Chloride Carbon Dioxide Anion Gap BUN Creatinine Est Cr Clr Drug Dosing eGFR BUN/Creatinine Ratio Glucose POC Glucose 131 H 130 H Calcium 05/10/24 05/10/24 05/10/24 07:51 09:55 13:50 WBC 6.85 RBC 3.50 L Hgb 8.4 L POC Hgb Hct 29.7 L POC Hct MCV 84.9 MCH 24.0 L MCHC 28.3 L RDW Std Deviation 64.8 H RDW Coeff of Nick 22.5 H Plt Count 42 L Absolute Nucleated RBC 0.53 H Nucleated RBC % (auto) 7.7 POC pH POC pCO2 POC pO2 POC HCO3 POC Total CO2 POC Base Excess POC ABG O2 Sat POC Sodium Sodium 131 L POC Potassium Potassium 4.9 Chloride 96 L Carbon Dioxide 20 L Anion Gap 15 H BUN 99 H D Creatinine 6.69 H* D Est Cr Clr Drug Dosing 15.5 eGFR 8.28 BUN/Creatinine Ratio 14.8 Glucose 136 H POC Glucose 138 H 157 H Calcium 9.1 Diagnostic Findings Echocardiogram 04/14/2024: Normal LV systolic function with ejection fraction of 60 to 65%. Moderate LVH. Moderate left atrial dilation. Mild mitral regurgitation. Moderate mitral annular calcification. Poorly visualized aortic valve with mildly elevated transaortic gradients. PG Care Time/CCT Total # of Minutes Spent Total Time Spent with Patient: Total time spent is greater than 50% in coordination of care (as documented) at patient's floor/unit and/or counseling patient: Coding Level of Care Code 47431 INT INP/OBS CARE 375MIN Diagnoses Atrial fibrillation I48.91 Atrial fibrillation type: unspecified Mitral regurgitation I34.0 S/P TAVR (transcatheter aortic valve replacement) Z95.2 (1) Atrial fibrillation Atrial fibrillation type: unspecified Qualified Code(s): I48.91 - Unspecified atrial fibrillation
--- NOTE | 2024-05-10 17:35 | Hospitalist Progress Note ---
Date of Service May 10, 2024 Assessment & Plan (1) End stage renal disease on dialysis: Plan: 68yo male - recent initiation of dialysis (M/W/F) for development of ESRD 03/2024, solitary kidney status (previous right nephrectomy for renal cell ca), A-fib, stage 4 renal cell cancer previously on Opdivo, HTN, hypercholesterolemia, hypothyroidism, and SARAH. Presented 04/28/24 with b/l leg weakness. BioFire positive for entero- /rhinovirus. CXR with pulmonary edema and new bilateral basilar infiltrates with small pleural effusions. Since admission -- s/p 9 serial HD sessions due to severe volume overload, then HD today - 05/10. Appreciate [facility] [place] [facility] [place] for HD needs. Moving forward attempting to have him on Fri/Fri/Friday HD schedule. Volume status MARKEDLY improved since admission but incredibly he is still hypervolemic. Continue midodrine to prevent intra-HD hypotension. Unfortunately we have been unable to get a dry weight on him as he cannot stand and attempts to get him OOB have also been unsuccessful (to zero the bedscale). (2) Acute hypoxic respiratory failure: Plan: multifactorial - pulmonary edema from ESRD status (and potentially liver dysfunction & cardiac issues), rhinovirus infection, +/- pneumonia rhinovirus & pneumonia clinically resolved aggressive HD since admission for volume control stable on NC O2 during the day CPAP with sleep of note - I suspect last pm's episode was due to pulmonary edema encouraged him to put his CPAP on sooner in the night rather than later as he typically does when staff roll him for care activities he cannot tolerate laying flat - recommended he put his CPAP on for those care activity moments (3) Weakness: Plan: mainly proximal muscle weakness of hips shoulder/arm strength largely preserved distal strength of feet/ankles 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 lumbar spine issue (unlikely as he does not have back pain or radicular pain of either leg)? check B1 level - pending checked CPK - wnl B12 level -605 consider MRI brain & MRI lumbar spine but defer for now cont PT/OT as tolerated (4) Autoimmune hepatitis treated with steroids: Plan: autoimmune hepatitis diagnosed July 2023 secondary to immunotherapy for renal cell ca has been on chronic steroids for such since that time during previous hospital stay in March 2024 was placed on steroid burst for this issue as well as concern that immunotherapy was contributing to his thrombocytopenia initially was on 70mg/day weaning every 7 days by 10mg increments thus, weaned to 50mg/day on 05/05 wean to 40mg on 05/12 hepatitis - 2nd to Opdivo? 2nd to hepatic congestion from volume overload? other? HepA, HepB, and HepC ab's were NEGATIVE in 06/2023 LFTs remain mildly high despite steroids ammonia level wnl ideally should be on PJP prophy until prednisone is <20mg/day use SS tmp/sulfa 1 tab M/W/F at HS for prophylaxis obtained formal GI consult to ensure nothing else is causing the liver dysfunction - they agree that it is likely due to immunotherapy/autoimmune +/- right heart failure/passive congestion liver u/s findings noted (5) Pneumonia: Plan: suspected b/l basilar clinically resolved could have been viral pneumonia 2nd to rhinovirus could have been bacterial superinfection completed 7+ days if IV/PO abx all abx have been stopped except TMP/sulfa for PJP prophylaxis (6) Rhinovirus: Plan: droplet precautions stopped clinically resolved (7) MARILEE (acute kidney injury): Plan: 03/2024 with ultimate need for HD see above (8) Atrial fibrillation with rapid ventricular response: Plan: continues with poorly controlled a.fib despite meto succ BID + cardizem CD 120mg HS remains on Eliquis 2.5mg BID at this point his best option would be AV maggie ablation with pacer placement poor candidate for amiodarone due to abnormal LFTs & autoimmune hepatitis hypotension precludes us from using higher doses of AV maggie agents cardioversion in the past not successful Dr Mitchell to speak with vascular surgery about venous access for a pacer, etc complex situation (9) Elevated troponin: Plan: peak HS trop 103 early in the admission no evidence of ACS likely myocardial demand ischemia in setting of volume overload from #1, rapid a.fib, rhinovirus infection, ?pneumonia, etc. (10) SARAH (obstructive sleep apnea): Plan: cont home CPAP (11) Hypothyroidism: Plan: TSH 03/2024 wnl cont synthroid (12) Morbid obesity with BMI of 40.0-44.9, adult: Plan: BMI 39-40 (13) Thrombocytopenia: Plan: 40s to 70s range while here without bleeding no indication for transfusion B12/folate levels wnl latest platelet count was 42 2nd to Opdivo? 2nd to liver dysfunction? combination of factors? (14) Renal cell carcinoma: Plan: stage 4 h/o right nephrectomy due to RCC follows with Dr Grijalva - cancer care clinic (15) S/P TAVR (transcatheter aortic valve replacement): Plan: last echo with normal valve function (04/17) (16) Prediabetes: Plan: a1c 6.1% in Mar 2024 certainly his BSGs will be high with the high-dose prednisone cont novolog SSI control satisfactory (17) Hyperkalemia: Plan: 2nd to ESRD status 2nd to recent addition of tmp/sulfa SS for PJP prophylaxis (possible) s/p lokelma x multiple doses K level stable this am had HD today and will so again on Friday Plan VTE prophylaxis - Eliquis 2.5mg BID cont PT/OT when able OOB to chair with life when able discharge dispo - [facility]? other? updated at bedside, 05/04, 05/07, 05/08, 05/09, and 05/10 updated by phone 05/06 had care discussions with Dr Lawson and Dr Mitchell via [place] correspondence today appreciate GI / cardiology consults Admission and Anticipated Discharge Date Admission Date: April 28, 2024 Subjective tele - ongoing rapid a.fib, best rates are upper 90s/low 100s with deep sleep otherwise 110s/120s with HD this am his rates were 140s and even 150s HD was stopped prematurely due to the rapid a.fib only 1.5 L of UF removed last night had what sounds like orthopnea his O2 had to be increased for a period of time, and ultimately he simply went on his CPAP within 20 minutes of putting CPAP on the episode resolved today - no dyspnea at rest Review of Systems Review of Systems: cv - no chest pain at any time overnight or today GI - no abd pain or N/V pulm - minimal to no cough Physical Exam Physical Exam: gen - morbidly obese, NAD mouth - MMM neck - no JVD heart - irregularly irregular, s1 s2, 2/6 systolic murmur LSB, tachy lungs - minimal b/l basilar rales, no wheeze, airation bases normal; no increased work of breathing abd - soft NT ND BS+ ext - 1+ pitting edema feet; 1+ edema of shins; pulses b/l feet 2+; some edema in arms psych - a/o x 3 skin - numerous optifoams b/l arms and shins Results & Data Results & Data Vital Signs (Past 12 Hours) Vital Signs Temp Pulse Pulse Pulse Resp BP BP 05/10/24 15:42 36.6 C 114 H 20 110/73 05/10/24 13:35 36.5 C 120 H 108/74 05/10/24 13:30 130 H 86/73 L 05/10/24 13:01 142 H 05/10/24 13:00 118 H 93/58 L 05/10/24 12:30 125 H 89/66 L 05/10/24 12:00 119 H 81/64 L 05/10/24 11:30 130 H 98/82 L 05/10/24 11:00 120 H 104/71 05/10/24 10:30 114 H 99/55 L 05/10/24 10:00 120 H 102/74 05/10/24 09:32 107 H 116/81 05/10/24 09:25 36.5 C 97 H 05/10/24 08:55 05/10/24 07:44 36.7 C 87 20 119/84 05/10/24 07:00 77 05/10/24 06:12 Pulse Ox O2 Del Method O2 Flow Rate 05/10/24 15:42 96 Nasal Cannula 3 05/10/24 13:35 05/10/24 13:30 05/10/24 13:01 05/10/24 13:00 05/10/24 12:30 05/10/24 12:00 05/10/24 11:30 05/10/24 11:00 05/10/24 10:30 05/10/24 10:00 05/10/24 09:32 05/10/24 09:25 05/10/24 08:55 Nasal Cannula 4 05/10/24 07:44 99 Nasal Cannula 4 05/10/24 07:00 05/10/24 06:12 99 Nasal Cannula 6 Laboratory Results Laboratory Results - last 24 hr 05/10/24 05/10/24 05/10/24 07:51 09:55 13:50 WBC 6.85 RBC 3.50 L Hgb 8.4 L Hct 29.7 L MCV 84.9 MCH 24.0 L MCHC 28.3 L RDW Std Deviation 64.8 H RDW Coeff of Nick 22.5 H Plt Count 42 L Absolute Nucleated RBC 0.53 H Nucleated RBC % (auto) 7.7 Sodium 131 L Potassium 4.9 Chloride 96 L Carbon Dioxide 20 L Anion Gap 15 H BUN 99 H D Creatinine 6.69 H* D Est Cr Clr Drug Dosing 15.5 eGFR 8.28 BUN/Creatinine Ratio 14.8 Glucose 136 H POC Glucose 138 H 157 H Calcium 9.1 05/10/24 16:58 WBC RBC Hgb Hct MCV MCH MCHC RDW Std Deviation RDW Coeff of Nick Plt Count Absolute Nucleated RBC Nucleated RBC % (auto) Sodium Potassium Chloride Carbon Dioxide Anion Gap BUN Creatinine Est Cr Clr Drug Dosing eGFR BUN/Creatinine Ratio Glucose POC Glucose 163 H Calcium PG Care Time/CCT Total # of Minutes Spent Total Time Spent with Patient: Total time spent is greater than 50% in coordination of care (as documented) at patient's floor/unit and/or counseling patient: Coding Level of Care Code 43950 SUB INP/OBS CARE 3/50MIN Diagnoses End stage renal disease on dialysis N18.6; Z99.2 Acute hypoxic respiratory failure J96.01 Weakness R53.1 Autoimmune hepatitis treated with steroids K75.4 Pneumonia J18.9 Rhinovirus B34.8 MARILEE (acute kidney injury) N17.9 Atrial fibrillation with rapid ventricular response I48.91 Elevated troponin R79.89 SARAH (obstructive sleep apnea) G47.33 Hypothyroidism E03.9 Morbid obesity with BMI of 40.0-44.9, adult E66.01; Z68.41 Thrombocytopenia D69.6 Renal cell carcinoma C64.9 S/P TAVR (transcatheter aortic valve replacement) Z95.2 Prediabetes R73.03 Hyperkalemia E87.5
[2024-05-11 07:15] LABS: BUN Creatinine Ratio 14.2 (10-20); Calcium 8.9 mg/dl (8.6-10.3); Potassium 4.1 mmol/L (3.5-5.1)
[2024-05-11 07:31] LABS: Platelet Count 37 K/uL (130-400); Platelet Estimate Decreased (Normal)
--- NOTE | 2024-05-11 10:23 | Nephrology Progress Note ---
Date of Service May 11, 2024 Assessment & Plan (1) End stage renal disease on dialysis: (2) Anemia: (3) Renal cell carcinoma: (4) Acute pulmonary edema: (5) Weakness: (6) Hyperkalemia: (7) Pulmonary edema: (8) Congestive heart failure (CHF): Plan 68-year-old gentleman with end-stage kidney disease with solitary kidney and hypertensive nephrosclerosis, Started on hemodialysis after having had tunneled dialysis catheter on 04/16/2024. He was getting outpatient dialysis but admitted with generalized weakness, pulmonary congestion and significant volume overload and over last few days had UF challenge and more than 2o kg weight loss. Overall feeling better but generally weak. blood pressure stable. He seems to have reached EDW, seems close to 138 to 139 kg. --continue Friday, Friday, Friday dialysis --start on Venofer 300 mg IV x 3 doses starting tomorrow. --Epogen 76169 units x 1 dose with HD tomorrow. --Midodrine 10 mg prior to dialysis --continue renal vitamin. --Right arm nephrology precaution --Dose medications for less than 10. Admission and Anticipated Discharge Date Admission Date: April 28, 2024 Subjective Tiny was seen and evaluated this morning. He reports generally feeling well. Denies shortness of breath. Had dialysis yesterday, BP relatively low. HR 110 to 120's. Review of Systems Review of Systems: Detailed review of system was done and pertinent positives and negatives are mentioned above. Physical Exam Constitutional: WD/WN, vitals as above no acute distress Eyes: + anicteric sclerae Neck: normal visual inspection Respiratory: Auscultation: + diminished lung sounds Cardiovascular: Rate/Rhythm: regular rate and regular rhythm Heart Sounds: normal S1 and normal S2 Extremities: + edema (trace b/l LE edema) and + AV fistula (Rt IJ TDC) Skin: + turgor decreased, + lesion, + skin atr ophy and + ecchymosis Neurologic: no focal motor deficits and not confused Psychiatric: Orientation: alert and oriented x 3 Results & Data Vital Signs (Past 12 Hours) Vital Signs Temp Pulse Pulse Resp BP Pulse Ox O2 Del Method 05/11/24 07:50 36.4 C L 109 H 19 100/72 100 Nasal Cannula 05/11/24 07:22 121 H 05/11/24 06:29 99 Nasal Cannula 05/11/24 03:17 36.2 C L 109 H 16 107/75 98 CPAP 05/10/24 23:16 36.4 C L 120 H 14 107/70 98 Nasal Cannula O2 Flow Rate 05/11/24 07:50 4 05/11/24 07:22 05/11/24 06:29 4 05/11/24 03:17 3.5 05/10/24 23:16 3.5 PG Care Time/CCT Total # of Minutes Spent Total Time Spent with Patient: Total time spent is greater than 50% in coordination of care (as documented) at patient's floor/unit and/or counseling patient: Coding Level of Care Code 41105 SUB INP/OBS CARE 235MIN Diagnoses End stage renal disease on dialysis N18.6; Z99.2 Anemia D64.9 Renal cell carcinoma C64.9 Acute pulmonary edema J81.0 Weakness R53.1 Hyperkalemia E87.5 Pulmonary edema J81.0 Chronicity: acute Congestive heart failure (CHF) I50.9 (7) Pulmonary edema Chronicity: acute Qualified Code(s): J81.0 - Acute pulmonary edema
--- NOTE | 2024-05-11 13:15 | Cardiology Progress Note ---
Date of Service May 11, 2024 Assessment & Plan (1) Atrial fibrillation: (2) Mitral regurgitation: (3) S/P TAVR (transcatheter aortic valve replacement): Plan 1. Atrial fibrillation: At this point it seems the best approach would be ablate and pace. I think he will have options for dialysis access involving the right arm. As such, we will place his device in the left subclavian. I will hold his apixaban tomorrow. Tentatively plan for the procedure on . 1 concern will be his platelet levels. I think would be reasonable to type and cross him for some platelets if necessary. 2. Aortic stenosis: Status post TAVR in 2022. Slightly elevated trans aortic gradients. Valve poorly visualized on recent examination. No believe this is a clinical concern currently. 3. Mitral regurgitation: Characterized as mild on his last echocardiogram Admission and Anticipated Discharge Date Admission Date: April 28, 2024 Subjective This morning the patient claimed to be feeling well. He denies significant breathing difficulty. He continues to be weak and has not been ambulatory. No pain. Review of Systems Review of Systems: Per HPI Physical Exam Physical Exam: The patient is alert and oriented. Mood and affect appeared normal. He answered all questions appropriately. Obese. Lying flat in bed. HEENT: Pupils are equal and reactive to light and accommodation. Extraocular movements are intact. The sclerae are anicteric. Neuro: Cranial nerves intact Chest: Dialysis access catheter in the right upper pectoral area Lungs: Apices clear. Normal respiratory effort. No wheezing Cardiac: Card examination reveals an irregular rhythm and rapid rate. Pulses: The patient has palpable radial pulses bilaterally that are equal in i ntensity Extremities: There was no evidence of hypoperfusion. There is no cyanosis or clubbing. Moderate lower extremity edema Skin: I did not appreciate any rashes on examination today. Severe ecchymosis on both arms Results & Data Vital Signs (Past 12 Hours) Vital Signs Temp Pulse Pulse Resp BP Pulse Ox O2 Del Method 05/11/24 11:35 36.6 C 105 H 19 98/66 L 99 Nasal Cannula 05/11/24 10:58 Nasal Cannula 05/11/24 07:50 36.4 C L 109 H 19 100/72 100 Nasal Cannula 05/11/24 07:22 121 H 05/11/24 06:29 99 Nasal Cannula 05/11/24 03:17 36.2 C L 109 H 16 107/75 98 CPAP O2 Flow Rate 05/11/24 11:35 4 05/11/24 10:58 4 05/11/24 07:50 4 05/11/24 07:22 05/11/24 06:29 4 05/11/24 03:17 3.5 Laboratory Results Abnormal Lab Results 05/10/24 05/10/24 05/10/24 13:50 16:58 20:42 Plt Count Platelet Estimate Sodium Potassium Chloride Carbon Dioxide Anion Gap BUN Creatinine Est Cr Clr Drug Dosing eGFR BUN/Creatinine Ratio Glucose POC Glucose 157 H 163 H 147 H Calcium 05/11/24 05/11/24 05/11/24 06:22 08:24 12:16 Plt Count 37 L Platelet Estimate Decreased L Sodium 134 L Potassium 4.1 Chloride 98 Carbon Dioxide 26 Anion Gap 10 BUN 64 H D Creatinine 4.51 H* D Est Cr Clr Drug Dosing 23.0 eGFR 13.28 BUN/Creatinine Ratio 14.2 Glucose 134 H POC Glucose 136 H 148 H Calcium 8.9 PG Care Time/CCT Total # of Minutes Spent Total Time Spent with Patient: Total time spent is greater than 50% in coordination of care (as documented) at patient's floor/unit and/or counseling patient: Coding Level of Care Code 19040 SUB INP/OBS CARE 235MIN Diagnoses Atrial fibrillation I48.91 Atrial fibrillation type: unspecified Mitral regurgitation I34.0 S/P TAVR (transcatheter aortic valve replacement) Z95.2 (1) Atrial fibrillation Atrial fibrillation type: unspecified Qualified Code(s): I48.91 - Unspecified atrial fibrillation
--- NOTE | 2024-05-11 15:03 | Hospitalist Progress Note ---
Date of Service May 11, 2024 Assessment & Plan (1) Acute pulmonary edema: (2) Atrial fibrillation: (3) End stage renal disease on dialysis: (4) Heart failure with preserved ejection fraction: (5) Renal cell carcinoma: Plan 68-year-old gentleman with ESRD on dialysis (M/W/F), CHF, s/p TAVR, A-fib, stage 4 RCC, and SARAH presenting to ED for BLE weakness starting on the day of arrival. He has renal cell carcinoma and recently started treatment and dialysis 2 weeks prior to arrival. BioFire positive for entero-/rhinovirus. He was volume overloaded and developed flash pulmonary edema shortly after admission, this was treated with urgent dialysis. He had a recurrent episode of acute pulmonary edema several days later, again treated with urgent dialysis. He was then dialyzed daily through 05/10. # acute hypoxic respiratory failure due to acute/flash pulmonary edema in ED AM after admission, acute on chronic diastolic heart failure. Recurrent acute pulmonary edema on 05/02. Treated with daily dialysis # R pleural effusion - no HD today - trying to resume MWF schedule see if he can tolerate - midodrine for hypotension during HD - monitor hyperkalemia unclear whether he can tolerate bactrim - potassium 4.1 today # atrial fibrillation with rapid ventricular rate - rate control has been challenging despite metoprolol and diltiazem, dosing has been limited by hypotension especially with dialysis - Dr. Mitchell consulted, discussed with Dr. 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 weight of edema has been playing a role - this is much improved check B1 level - pending checked CPK - wnl B12 level -605 # autoimmune hepatitis diagnosed July 2023 secondary to immunotherapy for renal cell ca - chronic steroids since then steroid burst 03/2024 to 70 mg, weaning by 10 mg per week -decrease to 40 mg on 05/12 -continues to have elevated LFT and thrombocytopenia. could have hepatic congestion from volume overload. GI consulted this admission. Liver ultrasound obtained. -PJP ppx with bactrim until prednisone <20 mg/day # prediabetes with steroid-induced hyperglycemia A1c 6.1% -continue PRN premeal insulin # stage 4 RCC, hx R nephrectomy - follow up with Dr. Grijalva. Opdivo. # rhinovirus, bibasilar bacterial pneumonia - completed antibiotics # myocardial demand ischemia in setting of volume overload, rapid a.fib, rhinovirus infection, pneumonia # hx TAVR normal function 04/17 # SARAH - cont CPAP # morbid obesity BMI 38.5 # hypothyroidism - cont levothyroxine VTE ppx: apixaban PT/OT rec rehab Admission and Anticipated Discharge Date Admission Date: April 28, 2024 Ana Stone has done well last 48h. Tactic of starting his CPAP prior to lying down seems to be helping. Next dialysis planned Physical Exam 2 Physical Exam: PHYSICAL EXAMINATION Last 24h vital signs reviewed, see documentation in flowsheet General: awake alert, sitting up in bed HEENT: Normocephalic, atraumatic, pupils round and equal, sclerae anicteric, no conjunctival injection, moist mucus membranes Lungs: CTAB anteriorly and posteriorly no wheezing/crackles Heart: mildly tachycardic irregular, no murmurs. R chest HD tunneled line Abdomen: Soft, nontender, nondistended. Bowel sounds present. Extremities: Warm, dry, well-perfused. 2+ bilateral lower extremity edema and 3+ pedal edema. much improved since last week. L 2nd toe is bluish distally, LLE is cool weak DP and PT pulses are palpable. Neuro: Alert and oriented x 4, face symmetric, moves 4 extremities, generalized weakness persists Psych: Normal affect and behavior Results & Data Results & Data Vital Signs (Past 12 Hours) Vital Signs Temp Pulse Pulse Resp BP Pulse Ox O2 Del Method 05/11/24 13:53 110 H 05/11/24 11:35 97.9 F 105 H 19 98/66 L 99 Nasal Cannula 05/11/24 10:58 Nasal Cannula 05/11/24 07:50 97.5 F L 109 H 19 100/72 100 Nasal Cannula 05/11/24 07:22 121 H 05/11/24 06:29 99 Nasal Cannula 05/11/24 03:17 97.2 F L 109 H 16 107/75 98 CPAP O2 Flow Rate 05/11/24 13:53 05/11/24 11:35 4 05/11/24 10:58 4 05/11/24 07:50 4 05/11/24 07:22 05/11/24 06:29 4 05/11/24 03:17 3.5 Laboratory Results 05/11/24 06:22 05/11/24 06:22 PG Care Time/CCT Total # of Minutes Spent Total Time Spent with Patient: Total time spent is greater than 50% in coordination of care (as documented) at patient's floor/unit and/or counseling patient: Coding Level of Care Code 63096 SUB INP/OBS CARE 2/35MIN Diagnoses Acute pulmonary edema J81.0 Atrial fibrillation I48.91 Atrial fibrillation type: unspecified End stage renal disease on dialysis N18.6; Z99.2 Heart failure with preserved ejection fraction I50.30 Renal cell carcinoma C64.9 (2) Atrial fibrillation Atrial fibrillation type: unspecified Qualified Code(s): I48.91 - Unspecified atrial fibrillation
[2024-05-11] MEDS: MELATONIN 3 MG TAB PO PRN (22:16)
[2024-05-12 08:57] LABS: Hematocrit (blood only) 27.6 % (42.0-52.0); Hemoglobin 7.9 g/dl (14.0-18.0); Mean Corpuscular Hemoglobin 24.7 pg (25.0-34.0); Mean Corpuscular Hgb Conc 28.6 g/dL (32.0-36.0); Mean Corpuscular Volume 86.3 fL (80.0-100.0); Mean Platelet Volume 10.3 fL (9.4-12.4); Nucleated RBC # (auto) 0.58 K/uL (0.00-0.12); Nucleated RBC % (auto) 7.3 %; Platelet Count 37 K/uL (130-400); RDW Standard Deviation 67.4 fL (36.4-46.3)
[2024-05-12 09:21] LABS: Albumin Level 2.7 gm/dl (3.4-5.0); BUN Creatinine Ratio 15.7 (10-20); Calcium 9.1 mg/dl (8.6-10.3); Creatinine Clr Calc Pharmacy 17.9 ml/min; Phosphorus 9.4 mg/dl (2.5-4.9); Potassium 4.7 mmol/L (3.5-5.1)
[2024-05-12] MEDS: IRON SUCROSE 300 MG in SODIUM CHLORIDE 0.9% 250 ML IV ONE (10:15)
[2024-05-12] MEDS: EPOETIN ALFA 10,000 UNITS/ML VIAL IV ONE (10:15)
--- NOTE | 2024-05-12 10:18 | Nephrology Progress Note ---
Date of Service May 12, 2024 Assessment & Plan (1) End stage renal disease on dialysis: (2) Anemia: (3) Renal cell carcinoma: (4) Acute pulmonary edema: (5) Weakness: (6) Hyperkalemia: (7) Pulmonary edema: (8) Congestive heart failure (CHF): Plan 68-year-old gentleman with end-stage kidney disease with solitary kidney and hypertensive nephrosclerosis, Started on hemodialysis after having had tunneled dialysis catheter on 04/16/2024. He was getting outpatient dialysis but admitted with generalized weakness, pulmonary congestion and significant volume overload and over last few days had UF challenge and more than 20 kg weight loss. Overall feeling better but remains quite deconditioned. Blood pressure stable. --tolerating dialysis, aim for UF 2.5 l the weight in EMR seems inaccurate --start on Venofer 300 mg IV x 3 doses --Epogen 31068 units x 1 dose with HD today --Midodrine 10 mg prior to dialysis --continue renal vitamin. --Right arm nephrology precaution --Dose medications for less than 10. Admission and Anticipated Discharge Date Admission Date: April 28, 2024 Subjective Tiny was seen and evaluated during HD this morning. He reports generally feeling well, tolerating HD. BP stable. HR better in 80 to 90's Review of Systems Review of Systems: Detailed review of system was done and pertinent positives and negatives are mentioned above. Physical Exam Constitutional: WD/WN, vitals as above no acute distress Eyes: + anicteric sclerae Respiratory: Auscultation: + diminished lung sounds Cardiovascular: Rate/Rhythm: regular rate and regular rhythm Heart Sounds: normal S1 and normal S2 Extremities: + edema (trace b/l LE edema) and + AV fistula (Rt IJ TDC) Skin: + turgor decreased, + lesion, + skin atr ophy and + ecchymosis Neurologic: no focal motor deficits Psychiatric: Orientation: alert and oriented x 3 Results & Data Vital Signs (Past 12 Hours) Vital Signs Temp Pulse Pulse Pulse Resp BP BP 05/12/24 10:00 85 114/95 05/12/24 09:30 71 107/73 05/12/24 09:16 97 H 127/88 05/12/24 09:08 36.4 C L 72 05/12/24 07:51 05/12/24 07:48 36.5 C 94 H 20 96/56 L 05/12/24 07:44 36.3 C L 95 H 18 96/63 L 05/12/24 06:45 78 05/12/24 03:38 36.5 C 98 H 20 95/63 L 05/12/24 00:29 36.5 C 102 H 20 99/66 L Pulse Ox O2 Del Method O2 Flow Rate 05/12/24 10:00 05/12/24 09:30 05/12/24 09:16 05/12/24 09:08 05/12/24 07:51 Nasal Cannula 4 05/12/24 07:48 97 Nasal Cannula 4 05/12/24 07:44 90 Nasal Cannula 3 05/12/24 06:45 05/12/24 03:38 98 CPAP 3 05/12/24 00:29 96 CPAP 3 PG Care Time/CCT Total # of Minutes Spent Total Time Spent with Patient: Total time spent is greater than 50% in coordination of care (as documented) at patient's floor/unit and/or counseling patient: Coding Level of Care Code 03679 SUB INP/OBS CARE 2/35MIN Diagnoses End stage renal disease on dialysis N18.6; Z99.2 Anemia D64.9 Renal cell carcinoma C64.9 Acute pulmonary edema J81.0 Weakness R53.1 Hyperkalemia E87.5 Pulmonary edema J81.0 Chronicity: acute Congestive heart failure (CHF) I50.9 (7) Pulmonary edema Chronicity: acute Qualified Code(s): J81.0 - Acute pulmonary edema
[2024-05-12 11:06] LABS: Hep B Surface Ag with confirm Negative (Negative)
[2024-05-12 11:15] LABS: Hepatitis B Surface Ab Quant 6.92 mIU/mL (>or=10mIU/mL Immune); Hepatitis B Surface Antibody Non-Immune
--- NOTE | 2024-05-12 16:25 | Cardiology Progress Note ---
Date of Service May 12, 2024 Assessment & Plan (1) Atrial fibrillation: (2) Mitral regurgitation: (3) S/P TAVR (transcatheter aortic valve replacement): Plan 1. Atrial fibrillation: Planning AV node ablation and single-chamber pacemaker implantation tomorrow. Patient be typed and crossed for some platelets which we can transfuse during his procedure. Eliquis being held. I discussed the risks and potential benefits with the patient again today. 2. Aortic stenosis: Status post TAVR in 2022. Slightly elevated trans aortic gradients. Valve poorly visualized on recent examination. No believe this is a clinical concern currently. 3. Mitral regurgitation: Characterized as mild on his last echocardiogram Admission and Anticipated Discharge Date Admission Date: April 28, 2024 Subjective This afternoon the patient clinically feeling well. Apparently dialysis went well. He did have some mild hypotension towards the end of dialysis. They removed nearly 2 L of fluid. No breathing difficulty currently. Still weak with no significant ambulation. Review of Systems Review of Systems: Per HPI Physical Exam Physical Exam: The patient is alert and oriented. Mood and affect appeared normal. He answered all questions appropriately. Obese. Lying flat in bed. HEENT: Pupils are equal and reactive to light and accommodation. Extraocular movements are intact. The sclerae are anicteric. Neuro: Cranial nerves intact Chest: Dialysis access catheter in the right upper pectoral area Lungs: Apices clear. Normal respiratory effort. No wheezing Cardiac: Card examination reveals an irregular rhythm and rapid rate. Pulses: The patient has palpable radial pulses bilaterally that are equal in intensity Extremities: There was no evidence of hypoperfusion. There is no cyanosis or clubbing. Moderate lower extremity edema Skin: I did not appreciate any rashes on examination today. Severe ecchymosis on both arms Results & Data Vital Signs (Past 12 Hours) Vital Signs Temp Pulse Pulse Pulse Resp BP BP 05/12/24 15:36 36.7 C 91 H 19 89/56 L 05/12/24 13:20 36.5 C 122 H 99/60 L 05/12/24 13:03 124 H 05/12/24 13:00 117 H 103/79 05/12/24 12:30 119 H 80/60 L 05/12/24 12:00 115 H 88/62 L 05/12/24 11:30 126 H 97/60 L 05/12/24 11:00 80 96/70 L 05/12/24 10:30 128 H 93/66 L 05/12/24 10:00 85 114/95 05/12/24 09:30 71 107/73 05/12/24 09:16 97 H 127/88 05/12/24 09:08 36.4 C L 72 05/12/24 07:51 05/12/24 07:48 36.5 C 94 H 20 96/56 L 05/12/24 07:44 36.3 C L 95 H 18 96/63 L 05/12/24 06:45 78 Pulse Ox O2 Del Method O2 Flow Rate 05/12/24 15:36 98 Nasal Cannula 3 05/12/24 13:20 05/12/24 13:03 05/12/24 13:00 05/12/24 12:30 05/12/24 12:00 05/12/24 11:30 05/12/24 11:00 05/12/24 10:30 05/12/24 10:00 05/12/24 09:30 05/12/24 09:16 05/12/24 09:08 05/12/24 07:51 Nasal Cannula 4 05/12/24 07:48 97 Nasal Cannula 4 05/12/24 07:44 90 Nasal Cannula 3 05/12/24 06:45 Laboratory Results Abnormal Lab Results 05/11/24 05/11/24 05/12/24 17:23 20:45 07:59 WBC RBC Hgb Hct MCV MCH MCHC RDW Std Deviation RDW Coeff of Nick Plt Count MPV Absolute Nucleated RBC Nucleated RBC % (auto) Sodium Potassium Chloride Carbon Dioxide Anion Gap BUN Creatinine Est Cr Clr Drug Dosing eGFR BUN/Creatinine Ratio Glucose POC Glucose 171 H 215 H 164 H Calcium Phosphorus Albumin Hep Bs Antigen Hep Bs Antibody Hep Bs Antibody, Quant Blood Type Antibody Screen 05/12/24 05/12/24 05/12/24 08:24 09:22 14:27 WBC 7.90 RBC 3.20 L Hgb 7.9 L Hct 27.6 L MCV 86.3 MCH 24.7 L MCHC 28.6 L RDW Std Deviation 67.4 H RDW Coeff of Nick 23.0 H Plt Count 37 L MPV 10.3 Absolute Nucleated RBC 0.58 H Nucleated RBC % (auto) 7.3 Sodium 133 L Potassium 4.7 Chloride 97 L Carbon Dioxide 25 Anion Gap 11 BUN 93 H D Creatinine 5.92 H* D Est Cr Clr Drug Dosing 17.9 eGFR 9.58 BUN/Creatinine Ratio 15.7 Glucose 150 H POC Glucose 136 H Calcium 9.1 Phosphorus 9.4 H Albumin 2.7 L Hep Bs Antigen Negative Hep Bs Antibody Non-Immune Hep Bs Antibody, Quant 6.92 Blood Type O Positive Antibody Screen NEGATIVE PG Care Time/CCT Total # of Minutes Spent Total Time Spent with Patient: Total time spent is greater than 50% in coordination of care (as documented) at patient's floor/unit and/or counseling patient: Coding Level of Care Code 56161 SUB INP/OBS CARE 2/35MIN Diagnoses Atrial fibrillation I48.91 Atrial fibrillation type: unspecified Mitral regurgitation I34.0 S/P TAVR (transcatheter aortic valve replacement) Z95.2 (1) Atrial fibrillation Atrial fibrillation type: unspecified Qualified Code(s): I48.91 - Unspecified atrial fibrillation
[2024-05-12] MEDS ORDERED: SODIUM CHLORIDE 0.9% 50 ML IV PRN (16:32)
[2024-05-12] MEDS ORDERED: SODIUM CHLORIDE 0.9% 100 ML IV PRN (16:32)
--- NOTE | 2024-05-12 16:40 | Hospitalist Progress Note ---
Date of Service May 12, 2024 Assessment & Plan (1) Acute pulmonary edema: (2) Atrial fibrillation: (3) End stage renal disease on dialysis: (4) Heart failure with preserved ejection fraction: (5) Renal cell carcinoma: Plan 68-year-old gentleman with ESRD on dialysis (M/W/F), CHF, s/p TAVR, A-fib, stage 4 RCC, and SARAH presenting to ED for BLE weakness starting on the day of arrival. He has renal cell carcinoma and recently started treatment and dialysis 2 weeks prior to arrival. BioFire positive for entero-/rhinovirus. He was volume overloaded and developed flash pulmonary edema shortly after admission, this was treated with urgent dialysis. He had a recurrent episode of acute pulmonary edema several days later, again treated with urgent dialysis. He was then dialyzed daily through 05/10. # acute hypoxic respiratory failure due to acute/flash pulmonary edema in ED AM after admission, acute on chronic diastolic heart failure. Recurrent acute pulmonary edema on 05/02. Treated with daily dialysis # R pleural effusion - stable so far with HD on a usual schedule - friday, today - midodrine for hypotension during HD - monitor hyperkalemia unclear whether he can tolerate bactrim - potassium 4.7 today # atrial fibrillation with rapid ventricular rate - rate control has been challenging despite metoprolol and diltiazem, dosing has been limited by hypotension especially with dialysis - Dr. Mitchell consulted, discussed with Dr. Norton, plans ablation and pacemaker . Discussed with Dr. 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 could have hepatic congestion from volume overload. GI consulted this admission. Liver ultrasound obtained. -thrombocytopenia dates back to Nov 2023. He does have hepatomegaly and some appearance of cirrhosis on recent US. No splenomegaly on CT last fall, but suspect splenic sequestration is playing a role -PJP ppx with bactrim until prednisone <20 mg/day # prediabetes with steroid-induced hyperglycemia A1c 6.1% -continue PRN premeal insulin # stage 4 RCC, hx R nephrectomy - follow up with Dr. Grijalva. Solange. # rhinovirus, bibasilar bacterial pneumonia - completed antibiotics # myocardial demand ischemia in setting of volume overload, rapid a.fib, rhinovirus infection, pneumonia # hx TAVR normal function 04/17 # SARAH - cont CPAP # morbid obesity BMI 38.5 # hypothyroidism - cont levothyroxine VTE ppx: apixaban PT/OT rec rehab Admission and Anticipated Discharge Date Admission Date: April 28, 2024 Subjective seen late in HD session, not short of breath currently but had increase in dyspnea this AM prior to HD anasarca progressively improving L 2nd toe hammertoe better perfused today, both feet are warm Physical Exam 2 Physical Exam: PHYSICAL EXAMINATION Last 24h vital signs reviewed, see documentation in flowsheet General: awake alert, sitting up in bed, finishing HD HEENT: Normocephalic, atraumatic, pupils round and equal, sclerae anicteric, no conjunctival injection, moist mucus membranes Lungs: CTA adri anteriorly Heart: mildly tachycardic irregular, no murmurs. R chest HD tunneled line - unchanged Abdomen: Soft, nontender, nondistended. Bowel sounds present. Extremities: Warm, dry, well-perfused. 2+ bilateral lower extremity edema and 3+ pedal edema. much improved since last week. L 2nd toe is dark pink, adri LE warm to touch Neuro: Alert and oriented x 4, face symmetric, moves 4 extremities, generalized weakness persists Psych: Normal affect and behavior Results & Data Results & Data Vital Signs (Past 12 Hours) Vital Signs Temp Pulse Pulse Pulse Resp BP BP 05/12/24 15:36 98.1 F 91 H 19 89/56 L 05/12/24 13:20 97.7 F 122 H 99/60 L 05/12/24 13:03 124 H 05/12/24 13:00 117 H 103/79 05/12/24 12:30 119 H 80/60 L 05/12/24 12:00 115 H 88/62 L 05/12/24 11:30 126 H 97/60 L 05/12/24 11:00 80 96/70 L 05/12/24 10:30 128 H 93/66 L 05/12/24 10:00 85 114/95 05/12/24 09:30 71 107/73 05/12/24 09:16 97 H 127/88 05/12/24 09:08 97.5 F L 72 05/12/24 07:51 05/12/24 07:48 97.7 F 94 H 20 96/56 L 05/12/24 07:44 97.3 F L 95 H 18 96/63 L 05/12/24 06:45 78 Pulse Ox O2 Del Method O2 Flow Rate 05/12/24 15:36 98 Nasal Cannula 3 05/12/24 13:20 05/12/24 13:03 05/12/24 13:00 05/12/24 12:30 05/12/24 12:00 05/12/24 11:30 05/12/24 11:00 05/12/24 10:30 05/12/24 10:00 05/12/24 09:30 05/12/24 09:16 05/12/24 09:08 05/12/24 07:51 Nasal Cannula 4 05/12/24 07:48 97 Nasal Cannula 4 05/12/24 07:44 90 Nasal Cannula 3 05/12/24 06:45 Laboratory Results 05/12/24 08:24 05/12/24 08:24 PG Care Time/CCT Total # of Minutes Spent Total Time Spent with Patient: Total time spent is greater than 50% in coordination of care (as documented) at patient's floor/unit and/or counseling patient: Coding Level of Care Code 08790 SUB INP/OBS CARE 3/50MIN Diagnoses Acute pulmonary edema J81.0 Atrial fibrillation I48.91 Atrial fibrillation type: unspecified End stage renal disease on dialysis N18.6; Z99.2 Heart failure with preserved ejection fraction I50.30 Renal cell carcinoma C64.9 (2) Atrial fibrillation Atrial fibrillation type: unspecified Qualified Code(s): I48.91 - Unspecified atrial fibrillation
[2024-05-13] MEDS ORDERED: SODIUM CHLORIDE 0.9% 50 ML IV PRN ×2 (07:15→10:55)
[2024-05-13] MEDS ORDERED: SODIUM CHLORIDE 0.9% 100 ML IV PRN ×2 (07:15→10:55)
[2024-05-13 10:19] LABS: Hematocrit (blood only) 27.3 % (42.0-52.0); Hemoglobin 8.1 g/dl (14.0-18.0); Mean Corpuscular Hemoglobin 25.5 pg (25.0-34.0); Mean Corpuscular Hgb Conc 29.7 g/dL (32.0-36.0); Mean Corpuscular Volume 85.8 fL (80.0-100.0); Platelet Count 40 K/uL (130-400); RDW Coefficient of Variation 23.9 % (11.5-14.5); RDW Standard Deviation 68.8 fL (36.4-46.3); Red Blood Count 3.18 M/uL (4.70-6.10)
--- NOTE | 2024-05-13 10:27 | Nephrology Progress Note ---
Date of Service May 13, 2024 Assessment & Plan (1) End stage renal disease on dialysis: (2) Anemia: (3) Renal cell carcinoma: (4) Acute pulmonary edema: (5) Weakness: (6) Hyperkalemia: (7) Pulmonary edema: (8) Congestive heart failure (CHF): Plan 68-year-old gentleman with end-stage kidney disease with solitary kidney and hypertensive nephrosclerosis, Started on hemodialysis after having had tunneled dialysis catheter on 04/16/2024. He was getting outpatient dialysis but admitted with generalized weakness, pulmonary congestion and significant volume overload and over last few days had UF challenge and more than 20 kg weight loss. Overall feeling better but remains quite deconditioned. Blood pressure stable. Waiting for AV maggie ablation. --dialysis tomorrow, will try UF as tolerated --Epogen 21919 units x 1 dose given yesterday. --Midodrine 10 mg prior to dialysis --continue renal vitamin. --Right arm nephrology precaution --Dose medications for less than 10. Admission and Anticipated Discharge Date Admission Date: April 28, 2024 Subjective Tiny was seen and evaluated this morning. He reports generally feeling well, has been n.p.o. for AV maggie ablation later today. Currently getting platelet transfusion prior to procedure. BP stable. Review of Systems Review of Systems: Detailed review of system was done and pertinent positives and negatives are mentioned above. Physical Exam Constitutional: WD/WN, vitals as above no acute distress Eyes: + anicteric sclerae Respiratory: Auscultation: + diminished lung sounds Cardiovascular: Rate/Rhythm: regular rate and regular rhythm Heart Sounds: normal S1 and normal S2 Extremities: + edema (trace b/l LE edema) and + AV fistula (Rt IJ TDC) Skin: + turgor decreased, + lesion, + skin atr ophy and + ecchymosis Neurologic: no focal motor deficits Psychiatric: Orientation: alert and oriented x 3 Results & Data Vital Signs (Past 12 Hours) Vital Signs Temp Pulse Pulse Pulse Resp BP BP 05/13/24 09:54 36.5 C 115 H 18 104/72 05/13/24 08:54 36.6 C 119 H 18 109/74 05/13/24 07:54 36.5 C 100 H 20 98/64 L 05/13/24 07:32 36.5 C 108 H 20 102/70 05/13/24 07:24 36.5 C 108 H 20 102/70 05/13/24 07:09 36.6 C 115 H 18 118/77 05/13/24 06:34 36.5 C 109 H 18 114/80 05/13/24 03:31 36.5 C 105 H 20 97/65 L 05/13/24 00:24 104 H 05/13/24 00:14 36.4 C L 118 H 22 97/68 L 05/12/24 22:28 Pulse Ox O2 Del Method O2 Flow Rate 05/13/24 09:54 95 05/13/24 08:54 97 3 05/13/24 07:54 96 4 05/13/24 07:32 97 Nasal Cannula 4 05/13/24 07:24 97 4 05/13/24 07:09 98 4 05/13/24 06:34 97 4 05/13/24 03:31 97 CPAP 3 05/13/24 00:24 05/13/24 00:14 95 CPAP 3 05/12/24 22:28 Nasal Cannula 3 PG Care Time/CCT Total # of Minutes Spent Total Time Spent with Patient: Total time spent is greater than 50% in coordination of care (as documented) at patient's floor/unit and/or counseling patient: Coding Level of Care Code 55359 SUB INP/OBS CARE 2MIN Diagnoses End stage renal disease on dialysis N18.6; Z99.2 Anemia D64.9 Renal cell carcinoma C64.9 Acute pulmonary edema J81.0 Weakness R53.1 Hyperkalemia E87.5 Pulmonary edema J81.0 Chronicity: acute Congestive heart failure (CHF) I50.9 (7) Pulmonary edema Chronicity: acute Qualified Code(s): J81.0 - Acute pulmonary edema
[2024-05-13 10:31] LABS: Albumin Level 2.9 gm/dl (3.4-5.0); Bilirubin,Total 1.9 mg/dl (0.2-1.0); Potassium 3.9 mmol/L (3.5-5.1)
[2024-05-13 10:42] LABS: Albumin Globulin Ratio 1.4 (0.9-2); BUN Creatinine Ratio 14.7 (10-20); Creatinine Clr Calc Pharmacy 23.3 ml/min; Globulin 2.1 gm/dl (2.5-4.0)
[2024-05-13 10:47] LABS: Nucleated RBC % (auto) 13.6 %; White Blood Count 7.34 K/ul (4.8-10.8)
[2024-05-13] MEDS: VANCOMYCIN HCL 1000MG/20ML VIAL ONE (10:59)
[2024-05-13] MEDS: BUPIVACAINE 0.25% PF 30 ML VIAL ONE (10:59)
[2024-05-13] MEDS: WATER, STERILE FOR INJ 10 ML VIAL ONE (10:59)
[2024-05-13] MEDS: LIDOCAINE 1% LOCAL 20 ML VIAL ONE (10:59)
--- NOTE | 2024-05-13 11:03 | Pre Anesthesia Assessment ---
Date of Service May 13, 2024 Pre Sedation Assessment Vital Signs Temp Pulse Pulse Pulse Pulse Resp BP 05/13/24 10:27 110 H 18 101/73 05/13/24 09:54 36.5 C 115 H 18 104/72 05/13/24 08:54 36.6 C 119 H 18 109/74 05/13/24 07:54 36.5 C 100 H 20 98/64 L 05/13/24 07:45 05/13/24 07:32 36.5 C 108 H 20 05/13/24 07:24 36.5 C 108 H 20 102/70 05/13/24 07:09 36.6 C 115 H 18 118/77 05/13/24 06:34 36.5 C 109 H 18 114/80 05/13/24 03:31 36.5 C 105 H 20 05/13/24 00:24 104 H 05/13/24 00:14 36.4 C L 118 H 22 05/12/24 22:28 05/12/24 21:50 101 H 05/12/24 21:18 05/12/24 19:59 36.5 C 102 H 20 05/12/24 15:36 36.7 C 91 H 19 05/12/24 13:20 36.5 C 122 H 05/12/24 13:03 124 H 05/12/24 13:00 117 H 103/79 05/12/24 12:30 119 H 80/60 L 05/12/24 12:00 115 H 88/62 L 05/12/24 11:30 126 H 97/60 L BP Pulse Ox O2 Del Method O2 Flow Rate 05/13/24 10:27 98 Nasal Cannula 4 05/13/24 09:54 95 05/13/24 08:54 97 3 05/13/24 07:54 96 4 05/13/24 07:45 Nasal Cannula 3 05/13/24 07:32 102/70 97 Nasal Cannula 4 05/13/24 07:24 97 4 05/13/24 07:09 98 4 05/13/24 06:34 97 4 05/13/24 03:31 97/65 L 97 CPAP 3 05/13/24 00:24 05/13/24 00:14 97/68 L 95 CPAP 3 05/12/24 22:28 Nasal Cannula 3 05/12/24 21:50 05/12/24 21:18 104/65 05/12/24 19:59 95/64 L 96 Nasal Cannula 3 05/12/24 15:36 89/56 L 98 Nasal Cannula 3 05/12/24 13:20 99/60 L 05/12/24 13:03 05/12/24 13:00 05/12/24 12:30 05/12/24 12:00 05/12/24 11:30 Cardiovascular + tachycardic and + irregularly irregular Respiratory + respiratory effort normal Pre-Sedation Airway Assessment Smoking Status: Never smoker Hx Sleep Apnea: No Hx Difficult Intubation: No Short, Thick Neck: Yes Thyromental Distance: < 3.5 Finger Breadths Oral Cavity: + WNL Mallampati Class: IV ASA: ASA4 NPO Status Date of Last Intake of Solid Food: 05/12/24 Time of Last Intake of Solid Foods: 18:00 Procedure Planning Contraindications for Sedation: none Current Medications Reviewed: Yes Notes The planned sedation has been discussed with the patient. Informed Consent was obtained. I have identified the patient, determined the appropriateness of sedation and have assessed the patient immediately prior to the procedure. All medicine(s) and interventions are by my order.
[2024-05-13] MEDS: MIDAZOLAM HCL 1 MG/ML 2ML VIAL ONE (12:53)
[2024-05-13] MEDS: ceFAZolin 330 MG/ML 1 GM VIAL ONE (12:53)
[2024-05-13] MEDS: fentaNYL citrate PF 100 MCG/2 ML VIAL ONE (12:53)
--- NOTE | 2024-05-13 13:25 | Post Anesthesia Assessment ---
Date of Service May 13, 2024 Post Sedation Assessment Vital Signs Temp Pulse Pulse Pulse Resp BP BP 05/13/24 10:27 110 H 18 101/73 05/13/24 09:54 36.5 C 115 H 18 104/72 05/13/24 08:54 36.6 C 119 H 18 109/74 05/13/24 07:54 36.5 C 100 H 20 98/64 L 05/13/24 07:45 05/13/24 07:32 36.5 C 108 H 20 102/70 05/13/24 07:24 36.5 C 108 H 20 102/70 05/13/24 07:09 36.6 C 115 H 18 118/77 05/13/24 06:34 36.5 C 109 H 18 114/80 05/13/24 03:31 36.5 C 105 H 20 97/65 L 05/13/24 00:24 104 H 05/13/24 00:14 36.4 C L 118 H 22 97/68 L 05/12/24 22:28 05/12/24 21:50 101 H 05/12/24 21:18 104/65 05/12/24 19:59 36.5 C 102 H 20 95/64 L 05/12/24 15:36 36.7 C 91 H 19 89/56 L Pulse Ox O2 Del Method O2 Flow Rate 05/13/24 10:27 98 Nasal Cannula 4 05/13/24 09:54 95 05/13/24 08:54 97 3 05/13/24 07:54 96 4 05/13/24 07:45 Nasal Cannula 3 05/13/24 07:32 97 Nasal Cannula 4 05/13/24 07:24 97 4 05/13/24 07:09 98 4 05/13/24 06:34 97 4 05/13/24 03:31 97 CPAP 3 05/13/24 00:24 05/13/24 00:14 95 CPAP 3 05/12/24 22:28 Nasal Cannula 3 05/12/24 21:50 05/12/24 21:18 05/12/24 19:59 96 Nasal Cannula 3 05/12/24 15:36 98 Nasal Cannula 3 Recovery Score Activity: Moves 4 extremities Respiration: Deep Breath/Cough Circulation: +/-20% PreAnes Value Consciousness: Fully Awake Oxygen Saturation: O2 needed for >90% Discharge Sedation Level of Care: Fast Track Phase II Post Sedation Plan On clinical assessment, the patient appears to have tolerated the sedation without complications. Patient is recovering as anticipated. Patient will continue to be monitored by nursing and may be discharged when sedation discharge criteria are met per below protocol. Upon Completions of procedure up to 15 minutes continue every 5 minute vital signs and the P.A.R. score; then discharge to a Phase I or Fast Track to Phase II per the following guidelines: * Discharge Patient to appropriate Phase II area if PAR is 8 or greater or return to pre- procedure baseline. The post - procedure orders will be as directed. * If PAR score is less than 8 or not return to pre-procedure baseline then patient will follow Phase I monitoring till PAR is reached for Phase II. The Phase I may be done in procedure room or may call to secure a Phase I area. * If naloxone or flumazenil are used for reversal, hold in Phase I for continued monitoring from when last reversal dose was given for a minimum of 60 minutes or longer pending the nurse and/or physician discretion of patient condition before discharge to Phase II. Please call the Sedation Physician to re-evaluate and complete post-note for discharge to Phase II area. Do NOT discharge from procedure sedation or Phase 1 until post- sedation evaluation note is complete by procedure /sedation MD Sedation Discharge Instructions to be given to the patient at discharge to home.
--- NOTE | 2024-05-13 13:26 | Electrophysiology Report ---
Date of Service May 13, 2024 Electrophysiology Procedure Electrophysiology Procedure Report Procedure performed: Implantation of single-chamber pacemaker Staff peoplesoft: Lc Mitchell MD Indication: The patient is a 68-year-old gentleman with a history of permanent atrial fibrillation. He has had high ventricular rates despite medical therapy. He also has borderline blood pressure and is on medication to raise blood pressure. He would benefit from discontinuing the medication therefore he was felt to be a good candidate for AV node ablation. Subsequent to this procedure the patient required implantation of a pacemaker. Procedure in detail: The patient was informed of the risks benefits and alternatives to the intended procedure and she wished to proceed. He was taken to the electrophysiology suite in a fasting state. A preoperative antibiotic had been administered. The patient was monitored electrocardiographically throughout today's procedure and conscious sedation was administered per protocol. The left upper pectoral area was prepped and draped in usual sterile fashion. This area was anesthetized using subcutaneous administration of a xylocaine solution. An incision was made at this site and carried down to the prepectoralis fascia using sharp dissection. Electrocautery was also employed for dissection as well as for hemostasis. A device pocket was fashioned tissues above the pectoralis muscle. Subsequent to this maneuver the left axillary vein was accessed using modified Seldinger technique. A sheath was placed over guidewire and used to facilitate passage of a guiding catheter for mapping of the interventricular septum. Once an appropriate location was identified a pacing lead was advanced into the interventricular septum until the appropriate electrophysiologic characteristics were obtained. At this point the guiding catheter was removed. The proximal portion of the lead was then sutured the prepectoralis fascia using nonabsorbable suture. The proximal portion of the lead was then sutured the prepectoral fascia using nonabsorbable suture. The device pocket was irrigated with antibiotic solution. The lead was then attached to the device. The device and lead were then placed in the pocket and pocket was closed in 3 layers of absorbable suture. Steri-Strips and sterile dressing were applied. The device was tested noninvasively prior to conclusion the procedure. The patient tolerated procedure well there no immediate complications. Equipment used: New pulse generator: [employer]. Model number: [id number] serial number [id number] Right ventricular lead: [employer]. Model number: 3830 serial number [id number] Measured data: Right ventricular lead: R wave sensing was greater than 20 mV. Pacing threshold of 0.5 V at 0.4 ms with a pacing impedance of 817 ohms and a bipolar configuration. Impression: Successful implantation of a single-chamber pacemaker with left bundle pacing lead [id number] Electrophysiology codes Pacing Procedure 1: Pacin Insert/Replace Pacer V PG Moderate Sedation Codes Moderate Sedation Codes Procedure 1: Sedation/Anesthesia: 56059 Mod Sedation by the same physician;Init15 Min Child Age 5 & Up Procedure 2: Sedation/Anesthesia: 10882 Mod Sedation by the same physician; Ea [id number] Minutes
--- NOTE | 2024-05-13 13:26 | Electrophysiology Report ---
Date of Service May 13, 2024 Electrophysiology Procedure Electrophysiology Procedure Report Procedure performed: Ablation of AV node Staff box cutter: Lc Mitchell MD Indication: The patient is a 68-year-old gentleman with a history of permanent atrial fibrillation and high ventricular rates. He is having some difficulty with hypotension and and poor rate control. He therefore appears to be a good candidate for ablation of the AV node and implantation of a pacemaker. Procedure detail The patient was informed of the risk benefits and alternatives to the intended procedure. He understood and wished to proceed. He was taken to the electrophysiology suite in the fasting state. Conscious sedation was administered per protocol and the patient was monitored electrocardiography throughout today's procedure. The right femoral area was prepped and draped in usual sterile fashion. This area was anesthetizing subcutaneous ministration of lidocaine and Marcaine solution. The right femoral vein was accessed twice using modified center technique. Sheath were placed over guidewires at the site [place] passage of the EP catheters to the respective chambers under fluoroscopic guidance. This included right ventricular and ablation catheter. The area around the AV node was mapped. Once a suitable location was identified radiofrequency lesions were placed at the site with good power and temperature. This resulted in complete heart block. Patient underwent pacing of the right ventricle using the right ventricular catheter until a permanent pacemaker could be implanted. At that point the catheters and sheaths were removed. Hemostasis was achieved at the access site using manual pressure. The patient tolerated the procedure well. There were no immediate complications. Equipment used: 8 Spanish 8 mm radiofrequency ablation catheter There was some difficulty obtaining adequate temperatures even at high power output. Initially patient was in complete heart block but after approximately 30 minutes there was return of AV maggie conduction. This required a second application of radiofrequency energy in the area of the AV node which appeared to result in complete heart block without return of conduction. Impression: Successful ablation of AV node [facility] Electrophysiology codes EP Procedure 1: Electrophysiology: 44417 Ablation AV Node w/wo pace Procedure 2: Electrophysiology: 11387 Catheter mapping PG Moderate Sedation Codes Moderate Sedation Codes Procedure 1: Sedation/Anesthesia: 03281 Mod Sedation by the same physician;Init15 Min Child Age 5 & Up Procedure 2: Sedation/Anesthesia: 13982 Mod Sedation by the same physician; Ea [id number] Minutes
--- NOTE | 2024-05-13 15:49 | Hospitalist Progress Note ---
Date of Service May 13, 2024 Assessment & Plan (1) Acute pulmonary edema: (2) Atrial fibrillation: (3) End stage renal disease on dialysis: (4) Heart failure with preserved ejection fraction: (5) Renal cell carcinoma: Plan 68-year-old gentleman with ESRD on dialysis (M/W/F), CHF, s/p TAVR, A-fib, stage 4 RCC, and SARAH presenting to ED for BLE weakness starting on the day of arrival. He has renal cell carcinoma and had treatment with Opdivo and initiation of dialysis 2 weeks prior to arrival. BioFire positive for entero-/rhinovirus. He was volume overloaded and developed flash pulmonary edema shortly after admission, this was treated with urgent dialysis. He had a recurrent episode of acute pulmonary edema several days later, again treated with urgent dialysis. He was then dialyzed daily through 05/10. # acute hypoxic respiratory failure due to acute/flash pulmonary edema in ED AM after admission, acute on chronic diastolic heart failure. Recurrent acute pulmonary edema on 05/02. Treated with daily dialysis # R pleural effusion - stable so far with HD on a usual schedule - friday, , planned for tomorrow. Increased hypoxia following ablation procedure today. - midodrine for hypotension during HD - monitor hyperkalemia unclear whether he can tolerate bactrim # atrial fibrillation with rapid ventricular rate - rate control has been challenging despite metoprolol and diltiazem, dosing has been limited by hypotension especially with dialysis - Dr. Mitchell consulted, performed ablation and pacemaker 05/13. Discussed with Dr. 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 could have hepatic congestion from volume overload. GI consulted this admission. Liver ultrasound obtained. -AST/ALT bili a little more increased today, potentially related to decreased frequency of dialysis -thrombocytopenia dates back to Nov 2023. He does have hepatomegaly and some appearance of cirrhosis on recent US. No splenomegaly on CT last fall, but suspect splenic sequestration is playing a role -PJP ppx with bactrim until prednisone <20 mg/day # prediabetes with steroid-induced hyperglycemia A1c 6.1% -continue PRN premeal insulin # stage 4 RCC, hx R nephrectomy - follow up with Dr. Grijalva. Opdivo. # rhinovirus, bibasilar bacterial pneumonia - completed antibiotics # myocardial demand ischemia in setting of volume overload, rapid a.fib, rhinovirus infection, pneumonia # hx TAVR normal function 04/17 # SARAH - cont CPAP # morbid obesity BMI 38.5 # hypothyroidism - cont levothyroxine VTE ppx: apixaban PT/OT rec rehab - discussed with care coordination, made [id number] call with his insurance - acute rehab denied because still requiring hospitalization and needing 2-person assist which is too much assistance to meet their acute rehab criteria. Can reapply after weekend if strength improved. Requested PT work with him daily next few days. Perhaps will have better tolerance with HR controlled. Admission and Anticipated Discharge Date Admission Date: April 28, 2024 Ana Stone is doing pretty well this morning except he does feel tired potentially from relatively low blood pressure, he is not short of breath, at the time he had had about half of his platelet transfusion completed Physical Exam 2 Physical Exam: PHYSICAL EXAMINATION Last 24h vital signs reviewed, see documentation in flowsheet General: lying in bed awake platelets infusing HEENT: Normocephalic, atraumatic, pupils round and equal, sclerae anicteric, no conjunctival injection, moist mucus membranes Lungs: CTA adri anteriorly Heart: mildly tachycardic irregular, no murmurs. R chest HD tunneled line - unchanged 05/13 Abdomen: Soft, nontender, nondistended. Bowel sounds present. Extremities: Warm, dry, well-perfused. 1-2+ bilateral lower extremity edema and 3+ pedal edema. much improved since last week. L 2nd toe remains perfused Neuro: Alert and oriented x 4, face symmetric, moves 4 extremities, generalized weakness persists Psych: Normal affect and behavior Results & Data Results & Data Vital Signs (Past 12 Hours) Vital Signs Temp Pulse Pulse Pulse Resp BP BP 05/13/24 15:35 91 H 18 106/80 05/13/24 15:10 91 H 05/13/24 15:08 97.7 F 92 H 18 96/74 L 05/13/24 14:30 97.7 F 91 H 20 106/72 05/13/24 14:00 90 16 101/76 05/13/24 13:45 88 16 89/62 L 05/13/24 13:30 87 16 87/59 L 05/13/24 10:27 110 H 18 101/73 05/13/24 09:54 97.7 F 115 H 18 104/72 05/13/24 08:54 97.9 F 119 H 18 109/74 05/13/24 07:54 97.7 F 100 H 20 98/64 L 05/13/24 07:45 05/13/24 07:32 97.7 F 108 H 20 102/70 05/13/24 07:24 97.7 F 108 H 20 102/70 05/13/24 07:09 97.9 F 115 H 18 118/77 05/13/24 06:34 97.7 F 109 H 18 114/80 Pulse Ox O2 Del Method O2 Flow Rate 05/13/24 15:35 91 Oxymask 7 05/13/24 15:10 05/13/24 15:08 92 Oxymask 7 05/13/24 14:30 90 Oxymask 7 05/13/24 14:00 94 Oxymask 6 05/13/24 13:45 96 Oxymask 6 05/13/24 13:30 91 Oxymask 6 05/13/24 10:27 98 Nasal Cannula 4 05/13/24 09:54 95 05/13/24 08:54 97 3 05/13/24 07:54 96 4 05/13/24 07:45 Nasal Cannula 3 05/13/24 07:32 97 Nasal Cannula 4 05/13/24 07:24 97 4 05/13/24 07:09 98 4 05/13/24 06:34 97 4 Laboratory Results 05/13/24 10:03 05/13/24 10:03 PG Care Time/CCT Total # of Minutes Spent Total Time Spent with Patient: Total time spent is greater than 50% in coordination of care (as documented) at patient's floor/unit and/or counseling patient: Coding Level of Care Code 81201 SUB INP/OBS CARE 50MIN Diagnoses Acute pulmonary edema J81.0 Atrial fibrillation I48.91 Atrial fibrillation type: unspecified End stage renal disease on dialysis N18.6; Z99.2 Heart failure with preserved ejection fraction I50.30 Renal cell carcinoma C64.9 (2) Atrial fibrillation Atrial fibrillation type: unspecified Qualified Code(s): I48.91 - Unspecified atrial fibrillation
--- NOTE | 2024-05-13 16:14 | Electrocardiogram Report ---
Test Reason : Blood Pressure : */* mmHG Vent. Rate : 90 BPM Atrial Rate : 202 BPM P-R Int : * ms QRS Dur : 124 ms QT Int : 380 ms P-R-T Axes : * 8 193 degrees QTcB Int : 464 ms Ventricular-paced rhythm Abnormal ECG When compared with ECG of 28-Apr-2024 14:35, Electronic ventricular pacemaker has replaced Atrial fibrillation Confirmed by Lc Mitchell ([id number]) on 05/13/2024 4:14:20 PM Referred By: Alfredo Timmons Confirmed By: Lc Mitchell
[2024-05-13] MEDS: SEVELAMER CARBONATE 800 MG TAB PO SCH (16:50)
[2024-05-13] MEDS: ceFAZolin 2000MG 2,000 MG/15 ML SYR IV ONE (20:53)
[2024-05-14] MEDS: NEPHROCAPS PO SCH (07:30)
[2024-05-14 09:08] LABS: Hemoglobin 8.1 g/dl (14.0-18.0); Mean Corpuscular Hemoglobin 25.3 pg (25.0-34.0); Mean Corpuscular Hgb Conc 28.9 g/dL (32.0-36.0); Mean Corpuscular Volume 87.5 fL (80.0-100.0); Mean Platelet Volume 11.2 fL (9.4-12.4); Platelet Count 57 K/uL (130-400); RDW Coefficient of Variation 24.4 % (11.5-14.5); RDW Standard Deviation 70.9 fL (36.4-46.3)
[2024-05-14 09:23] LABS: Albumin Globulin Ratio 1.3 (0.9-2); Albumin Level 2.9 gm/dl (3.4-5.0); Bilirubin,Total 1.8 mg/dl (0.2-1.0); Calcium 9.4 mg/dl (8.6-10.3); Globulin 2.2 gm/dl (2.5-4.0); Magnesium 2.4 mg/dl (1.7-2.4); Potassium 3.9 mmol/L (3.5-5.1); Total Protein 5.1 gm/dl (6.0-8.3)
[2024-05-14 09:38] LABS: Nucleated RBC # (auto) 1.09 K/uL (0.00-0.12); Nucleated RBC % (auto) 15.5 %; White Blood Count 7.05 K/ul (4.8-10.8)
[2024-05-14 09:41] LABS: Platelet Estimate Decreased (Normal)
--- NOTE | 2024-05-14 09:58 | XRay Report ---
EXAM: XR chest 2V PA/lateral CLINICAL HISTORY: Evaluate for pneumothorax and ;POST PACEMAKER INSERTION TECHNIQUE: X-ray images of the chest were obtained in AP and lateral projections. COMPARISON: CR dated 05/09/2024, CR chest and CT study dated 04/13/2024 reviewed. FINDINGS: Single lead pacemaker is seen. Right central line is seen reaching SVC. Pulmonary Parenchyma: Bilateral prominent central vascular markings. Right mainly lower zonal opacity obscuring the right costophrenic angle. Blunted both posterior costophrenic angles with left left lateral one by likely pleural effusion. Heart and Mediastinum: Heart size is increased. Aortic root stent noted with Prominent aortic shadow. Bony Thorax: Suspected right 8, 9 rib fractures/ overlying densities, clinical correlation recommended. Bony thorax appears intact. Soft Tissues: Soft tissues overlying the chest wall are unremarkable. IMPRESSION: 1. Single lead pacemaker is seen. 2. Right central line is seen reaching SVC. 3. No interval changes with redemonstration of bilateral mild central congestion, Right mainly lower zonal opacity and evidence of bilateral more right side pleural effusion. Electronically signed by Scott Venegas 05-14-2024 08:40 AM
--- NOTE | 2024-05-14 10:28 | Cardiology Progress Note ---
Date of Service May 14, 2024 Assessment & Plan (1) Atrial fibrillation: (2) Mitral regurgitation: (3) S/P TAVR (transcatheter aortic valve replacement): Plan 1. Atrial fibrillation: Status post AV node ablation and pacemaker implantation. He does not appear to have any AV maggie conduction at this point. Currently pacemaker dependent. I think we can resume apixaban tomorrow morning. No need for continued diltiazem or metoprolol. 2. Aortic stenosis: Status post TAVR in 2022. Slightly elevated trans aortic gradients. Valve poorly visualized on recent examination. I do not believe this is a clinical concern currently. 3. Mitral regurgitation: Characterized as mild on his last echocardiogram 4. Normally functioning single-chamber pacemaker with left bundle pacing lead. No evident complication from the procedure. Current pacing rate is 90 bpm. Rate response was added today. My recommendation will be to reduce the pacing rate to 80 bpm in 4 weeks and then reduce it again in another 4 weeks. Admission and Anticipated Discharge Date Admission Date: April 28, 2024 Subjective This morning patient claimed feeling well. Minimal discomfort at the device implant site left upper pectoral area. No dyspnea. Review of Systems Review of Systems: Per HPI Physical Exam Physical Exam: The patient is alert and oriented. Mood and affect appeared normal. He answered all questions appropriately. Obese. Lying flat in bed. Undergoing dialysis. HEENT: Pupils are equal and reactive to light and accommodation. Extraocular movements are intact. The sclerae are anicteric. Neuro: Cranial nerves intact Chest: Dialysis access catheter in the right upper pectoral area. Left upper pectoral area with some mild ecchymosis and petechiae. However, no active bleeding, hematoma or erythema. Lungs: Normal respiratory effort Cardiac: Card examination reveals regular rhythm with occasional ectopy. Pulses: The patient has palpable radial pulses bilaterally that are equal in intensity Extremities: There was no evidence of hypoperfusion. There is no cyanosis or clubbing. Skin: I did not appreciate any rashes on examination today. Severe ecchymosis on both arms ENMT: Mallampati Class: IV Respiratory: normal respiratory effort Cardiovascular: Rate/Rhythm: + tachycardic and + irregularly irregular Results & Data Vital Signs (Past 12 Hours) Vital Signs Temp Pulse Resp BP Pulse Ox O2 Del Method O2 Flow Rate 05/14/24 03:30 36.7 C 109 H 20 115/89 94 CPAP 4 05/13/24 23:00 90 14 93 CPAP 4 05/13/24 22:50 36.5 C 90 20 109/77 90 Nasal Cannula 4 Laboratory Results Abnormal Lab Results 05/12/24 05/12/24 05/13/24 08:24 09:22 10:03 WBC 7.34 RBC Hgb Hct MCV MCH MCHC RDW Std Deviation RDW Coeff of Nick Plt Count MPV Absolute Nucleated RBC 1.00 H Nucleated RBC % (auto) 13.6 Platelet Estimate Sodium 136 Potassium 3.9 Chloride 99 Carbon Dioxide 25 Anion Gap 12 H BUN 67 H D Creatinine 4.55 H* D Est Cr Clr Drug Dosing 23.3 eGFR 13.14 BUN/Creatinine Ratio 14.7 Glucose 139 H POC Glucose Calcium 9.0 Magnesium Total Bilirubin 1.9 H AST 62 H ALT 68 H Alkaline Phosphatase 270 H Total Protein 5.0 L Albumin 2.9 L Globulin 2.1 L Albumin/Globulin Ratio 1.4 Nasal Screen MRSA (PCR) Hep B Core IgM Ab NON-REACTIVE Blood Type O Positive Antibody Screen NEGATIVE 05/13/24 05/13/24 05/13/24 14:47 16:13 20:59 WBC RBC Hgb Hct MCV MCH MCHC RDW Std Deviation RDW Coeff of Nick Plt Count MPV Absolute Nucleated RBC Nucleated RBC % (auto) Platelet Estimate Sodium Potassium Chloride Carbon Dioxide Anion Gap BUN Creatinine Est Cr Clr Drug Dosing eGFR BUN/Creatinine Ratio Glucose POC Glucose 181 H 170 H Calcium Magnesium Total Bilirubin AST ALT Alkaline Phosphatase Total Protein Albumin Globulin Albumin/Globulin Ratio Nasal Screen MRSA (PCR) Negative Hep B Core IgM Ab Blood Type Antibody Screen 05/14/24 05/14/24 06:55 08:39 WBC 7.05 RBC 3.20 L Hgb 8.1 L Hct 28.0 L MCV 87.5 MCH 25.3 MCHC 28.9 L RDW Std Deviation 70.9 H RDW Coeff of Nick 24.4 H Plt Count 57 L MPV 11.2 Absolute Nucleated RBC 1.09 H Nucleated RBC % (auto) 15.5 Platelet Estimate Decreased L Sodium 137 Potassium 3.9 Chloride 97 L Carbon Dioxide 25 Anion Gap 15 H BUN 84 H Creatinine 5.59 H* D Est Cr Clr Drug Dosing 19.0 eGFR 10.27 BUN/Creatinine Ratio 15.0 Glucose 176 H POC Glucose 159 H Calcium 9.4 Magnesium 2.4 Total Bilirubin 1.8 H AST 60 H ALT 44 Alkaline Phosphatase 271 H Total Protein 5.1 L Albumin 2.9 L Globulin 2.2 L Albumin/Globulin Ratio 1.3 Nasal Screen MRSA (PCR) Hep B Core IgM Ab Blood Type Antibody Screen Diagnostic Findings Chest x-ray demonstrated stable lead position without pneumothorax Device interrogation revealed normal function without evidence of conducted atrial fibrillation. (1) Atrial fibrillation Atrial fibrillation type: unspecified Qualified Code(s): I48.91 - Unspecified atrial fibrillation
--- NOTE | 2024-05-14 11:17 | Nephrology Progress Note ---
Date of Service May 14, 2024 Assessment & Plan (1) End stage renal disease on dialysis: (2) Anemia: (3) Renal cell carcinoma: (4) Acute pulmonary edema: (5) Weakness: (6) Hyperkalemia: (7) Pulmonary edema: (8) Congestive heart failure (CHF): Plan 68-year-old gentleman with end-stage kidney disease with solitary kidney and hypertensive nephrosclerosis, Started on hemodialysis after having had tunneled dialysis catheter on 04/16/2024. He was getting outpatient dialysis but admitted with generalized weakness, pulmonary congestion and significant volume overload and over last few days had UF challenge and more than 20 kg weight loss. Had A- fib with RVR and had AV maggie ablation and pacemaker placement on 05/13/2024. Overall feeling better but remains deconditioned. Blood pressure low but stable and asymptomatic. --Tolerating dialysis today, plan for UF 2.5 L. Considering worsening volume status, will plan for extra dialysis tomorrow mainly for ultrafiltration. --Epogen 39860 units x 1 dose today. Venofer 3 mg x 1 dose today. --Midodrine 10 mg prior to dialysis --continue renal vitamin and phosphate binder. --Right arm nephrology precaution --Dose medications for less than 10. Admission and Anticipated Discharge Date Admission Date: April 28, 2024 Subjective Tiny was seen and evaluated during dialysis this morning. He reports generally feeling well, s/p AV maggie ablation pacemaker placement yesterday. No bleeding at the growing vascular access site. Overall volume status worsen as last few days UF was limited because of tachycardia. Tolerating 2.5 L UF today although blood pressure dropped, asymptomatic. Review of Systems Review of Systems: Detailed review of system was done and pertinent positives and negatives are mentioned above. Physical Exam Constitutional: WD/WN, vitals as above no acute distress Eyes: + anicteric sclerae Respiratory: Auscultation: + diminished lung sounds Cardiovascular: Rate/Rhythm: regular rate and regular rhythm Heart Sounds: normal S1 and normal S2 Extremities: + edema (2+ b/l LE edema) and + vascular access device (Rt IJ TDC) Skin: + turgor decreased, + lesion, + skin atr ophy and + ecchymosis Neurologic: no focal motor deficits Psychiatric: Orientation: alert and oriented x 3 Results & Data Vital Signs (Past 12 Hours) Vital Signs Temp Pulse Resp BP Pulse Ox O2 Del Method O2 Flow Rate 05/14/24 03:30 36.7 C 109 H 20 115/89 94 CPAP 4 PG Care Time/CCT Total # of Minutes Spent Total Time Spent with Patient: Total time spent is greater than 50% in coordination of care (as documented) at patient's floor/unit and/or counseling patient: Coding Level of Care Code 39107 SUB INP/OBS CARE 3/50MIN Diagnoses End stage renal disease on dialysis N18.6; Z99.2 Anemia D64.9 Renal cell carcinoma C64.9 Acute pulmonary edema J81.0 Weakness R53.1 Hyperkalemia E87.5 Pulmonary edema J81.0 Chronicity: acute Congestive heart failure (CHF) I50.9 (7) Pulmonary edema Chronicity: acute Qualified Code(s): J81.0 - Acute pulmonary edema
[2024-05-14] MEDS: EPOETIN ALFA 10,000 UNITS/ML VIAL IV ONE (11:19)
[2024-05-14] MEDS: IRON SUCROSE 300 MG in SODIUM CHLORIDE 0.9% 250 ML IV ONE (11:20)
--- NOTE | 2024-05-14 17:35 | Hospitalist Progress Note ---
Date of Service May 14, 2024 Assessment & Plan (1) Acute pulmonary edema: (2) Atrial fibrillation: (3) End stage renal disease on dialysis: (4) Heart failure with preserved ejection fraction: (5) Renal cell carcinoma: Plan 68-year-old gentleman with ESRD on dialysis (M/W/F), CHF, s/p TAVR, A-fib, stage 4 RCC, and SARAH presenting to ED for BLE weakness starting on the day of arrival. He has renal cell carcinoma and had treatment with Opdivo and initiation of dialysis 2 weeks prior to arrival. BioFire positive for entero-/rhinovirus. He was volume overloaded and developed flash pulmonary edema shortly after admission, this was treated with urgent dialysis. He had a recurrent episode of acute pulmonary edema several days later, again treated with urgent dialysis. He was then dialyzed daily through 05/10. heart rate controlled with his atrial fibrillation was an ongoing problem complicated by hypotension with AV maggie blockers despite midodrine. He underwent AV maggie ablation 05/13 with pacemaker placement. # acute hypoxic respiratory failure due to acute/flash pulmonary edema in ED AM after admission, acute on chronic diastolic heart failure. Recurrent acute pulmonary edema on 05/02. Treated with daily dialysis # R pleural effusion - Continuing hemodialysis Friday, let see if he can go through the weekend without developing any pulmonary edema - midodrine for hypotension during HD - monitor hyperkalemia with bactrim - potassium 3.9 today # atrial fibrillation with rapid ventricular rate - rate control was impossible to achieve despite metoprolol and diltiazem, dosing has been limited by hypotension especially with dialysis despite midodrine. He is a poor candidate for amiodarone because of liver dysfunction - Dr. Mitchell consulted, performed ablation and pacemaker 05/13. 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 could have hepatic congestion from volume overload. GI consulted this admission. Liver ultrasound obtained. -AST/ALT bili have been up and down, monitor CMP. bilirubin 1.8 today -thrombocytopenia dates back to Nov 2023. He does have hepatomegaly and some appearance of cirrhosis on recent US. No splenomegaly on CT last fall, but suspect splenic sequestration is playing a role -PJP ppx with bactrim until prednisone <20 mg/day # prediabetes with steroid-induced hyperglycemia A1c 6.1% -continue PRN premeal insulin # stage 4 RCC, hx R nephrectomy - follow up with Dr. Grijalva. Solange. # rhinovirus, bibasilar bacterial pneumonia - completed antibiotics # myocardial demand ischemia in setting of volume overload, rapid a.fib, rhinovirus infection, pneumonia # hx TAVR normal function 04/17 # SARAH - cont CPAP # morbid obesity BMI 38.5 # hypothyroidism - cont levothyroxine VTE ppx: apixaban PT/OT rec rehab - discussed with care coordination, made [id number] call with his insurance - acute rehab denied because still requiring hospitalization and needing 2-person assist which is too much assistance to meet their acute rehab criteria. Can reapply after weekend if strength improved. Requested PT work with him daily next few days. Perhaps will have better tolerance with HR controlled. I have updated his who is in the room daily Admission and Anticipated Discharge Date Admission Date: April 28, 2024 Subjective today he had a 5-hour dialysis run which was super successful after adjustment of pacemaker settings 4 L were ultrafiltrated don says he feels better after the session than he has thus far currently no shortness of breath, blood pressure and heart rate improved Physical Exam 2 Physical Exam: PHYSICAL EXAMINATION Last 24h vital signs reviewed, see documentation in flowsheet General: awake sitting up in bed HEENT: Normocephalic, atraumatic, pupils round and equal, sclerae anicteric, no conjunctival injection, moist mucus membranes Lungs: normal work of breathing Heart: heart rate currently in 90s, left chest pacemaker site without evidence of hematoma, some expected bruising, right upper chest tunneled hemodialysis dialysis line Abdomen: nondistended Extremities: Warm, dry, well-perfused. 2+ bilateral lower extremity edema and 3+ pedal edema. edema continues to slowly improve now with some skin wrinkling on his calves and ankles Neuro: Alert and oriented x 4, face symmetric, moves 4 extremities, generalized weakness persists Psych: Normal affect and behavior Results & Data Results & Data Vital Signs (Past 12 Hours) Vital Signs Temp Pulse Pulse BP BP 05/14/24 14:18 97.5 F L 110 H 123/87 05/14/24 14:00 61 101/67 05/14/24 13:30 90 101/68 05/14/24 13:00 89 108/64 05/14/24 12:30 89 111/82 05/14/24 12:00 89 106/76 05/14/24 11:30 89 104/75 05/14/24 11:00 89 98/73 L 05/14/24 10:30 88 100/72 05/14/24 10:00 89 99/68 L 05/14/24 09:30 115 H 107/87 05/14/24 09:04 110 H 108/76 05/14/24 09:00 97.7 F 112 H Laboratory Results 05/14/24 08:39 05/14/24 08:39 PG Care Time/CCT Total # of Minutes Spent Total Time Spent with Patient: Total time spent is greater than 50% in coordination of care (as documented) at patient's floor/unit and/or counseling patient: Coding Level of Care Code 35713 SUB INP/OBS CARE 235MIN Diagnoses Acute pulmonary edema J81.0 Atrial fibrillation I48.91 Atrial fibrillation type: unspecified End stage renal disease on dialysis N18.6; Z99.2 Heart failure with preserved ejection fraction I50.30 Renal cell carcinoma C64.9 (2) Atrial fibrillation Atrial fibrillation type: unspecified Qualified Code(s): I48.91 - Unspecified atrial fibrillation
--- NOTE | 2024-05-15 11:11 | Nephrology Progress Note ---
Date of Service May 15, 2024 Assessment & Plan (1) End stage renal disease on dialysis: Plan: Completed treatment yesterday for UF and clearance. Continued evidence of volume overload. Remains relatively oliguric. Orders for HD today were entered into the EHR and reviewed with the endband cutter hand. No additional labs needed. Medications are appropriate for kidney function. Continue dietary sodium restriction. Maintain daily 1.5 L fluid limit. Document I/O's. Check a metabolic profile Friday AM. (2) Anemia: Plan: Venofer and Epogen provided yesterday. Repeat H/H on Friday. (3) Renal cell carcinoma: (4) Atrial fibrillation: Plan: AV maggie ablation and pacemaker placement on 05/13/2024. Anticoagulated with Eliquis. (5) Weakness: Plan: Anticipated discharge to rehab, possibly Friday. Admission and Anticipated Discharge Date Admission Date: April 28, 2024 Subjective No acute events overnight. Paige tolerated HD well yesterday. No complications with treatment. He was resting comfortably in bed this AM. Paige was seen and evaluated with his at the bedside. Edema improving. Reports some mild pain/discomfort over left chest from pacer placement. Skin breakdown on arms and some weeping wounds noted. No fevers or chills. Relatively oliguric. Review of Systems Review of Systems: All systems reviewed & are unremarkable except as noted in HPI & below Physical Exam Constitutional: well developed; no acute distress Eyes: no scleral abnormality and no corneal abnormality ENMT: Mouth: oral mucous membranes not dry Neck: normal visual inspection and trachea midline RIJ TDC Respiratory: normal respiratory effort Auscultation: lungs clear to auscultation bilaterally Cardiovascular: Rate/Rhythm: regular rate Heart Sounds: normal S1 and normal S2 Extremities: + edema and + AV fistula (thrombosed) Chest (Breasts): Additional Comments: L chest pacer with incision with dressing CDI Musculoskeletal: Extremities: no cyanosis and no clubbing Skin: + ecchymosis; no jaundice Neurologic: Motor/Sensory: no tremor and no asterixis Psychiatric: Orientation: alert and oriented x 3 Results & Data Vital Signs (Past 12 Hours) Vital Signs Temp Pulse Resp BP Pulse Ox O2 Del Method O2 Flow Rate 05/15/24 08:30 Nasal Cannula, CPAP 4 05/15/24 08:01 36.4 C L 88 18 117/83 99 Nasal Cannula 4 05/15/24 02:39 36.6 C 88 17 106/75 97 CPAP Laboratory Results Laboratory Results - last 24 hr 05/14/24 05/14/24 05/14/24 14:48 16:02 20:13 POC Glucose 108 H 146 H 164 H 05/15/24 07:23 POC Glucose 143 H Diagnostic Findings XR chest 2V PA/lateral CLINICAL HISTORY: Evaluate for pneumothorax and ;POST PACEMAKER INSERTION TECHNIQUE: X-ray images of the chest were obtained in AP and lateral projections. COMPARISON: CR dated 05/09/2024, CR chest and CT study dated 04/13/2024 reviewed. FINDINGS: Single lead pacemaker is seen. Right central line is seen reaching SVC. Pulmonary Parenchyma: Bilateral prominent central vascular markings. Right mainly lower zonal opacity obscuring the right costophrenic angle. Blunted both posterior costophrenic angles with left left lateral one by likely pleural effusion. Heart and Mediastinum: Heart size is increased. Aortic root stent noted with Prominent aortic shadow. Bony Thorax: Suspected right 8, 9 rib fractures/ overlying densities, clinical correlation recommended. Bony thorax appears intact. Soft Tissues: Soft tissues overlying the chest wall are unremarkable. IMPRESSION: 1. Single lead pacemaker is seen. 2. Right central line is seen reaching SVC. 3. No interval changes with redemonstration of bilateral mild central congestion, Right mainly lower zonal opacity and evidence of bilateral more right side pleural effusion. PG Care Time/CCT Total # of Minutes Spent Total Time Spent with Patient: Total time spent is greater than 50% in coordination of care (as documented) at patient's floor/unit and/or counseling patient: Coding Level of Care Code 77999 SUB INP/OBS CARE 3/50MIN Diagnoses End stage renal disease on dialysis N18.6; Z99.2 Anemia D64.9 Renal cell carcinoma C64.9 Atrial fibrillation I48.91 Atrial fibrillation type: unspecified Weakness R53.1 (4) Atrial fibrillation Atrial fibrillation type: unspecified Qualified Code(s): I48.91 - Unspecified atrial fibrillation
--- NOTE | 2024-05-15 18:03 | Hospitalist Progress Note ---
Date of Service May 15, 2024 Assessment & Plan (1) Acute pulmonary edema: (2) Atrial fibrillation: (3) End stage renal disease on dialysis: (4) Heart failure with preserved ejection fraction: (5) Renal cell carcinoma: Plan 68-year-old gentleman with ESRD on dialysis (M/W/F), CHF, s/p TAVR, A-fib, stage 4 RCC, and SARAH presenting to ED for BLE weakness starting on the day of arrival. He has renal cell carcinoma and had treatment with Opdivo and initiation of dialysis 2 weeks prior to arrival. BioFire positive for entero-/rhinovirus. He was volume overloaded and developed flash pulmonary edema shortly after admission, this was treated with urgent dialysis. He had a recurrent episode of acute pulmonary edema several days later, again treated with urgent dialysis. He was then dialyzed daily through 05/10. heart rate controlled with his atrial fibrillation was an ongoing problem complicated by hypotension with AV maggie blockers despite midodrine. He underwent AV maggie ablation 05/13 with pacemaker placement. # some bright red blood per rectum 05/15 appears to be hemorrhoidal bright red blood mixed with brown formed stoolmonitor # acute hypoxic respiratory failure due to acute/flash pulmonary edema in ED AM after admission, acute on chronic diastolic heart failure. Recurrent acute pulmonary edema on 05/02. Treated with daily dialysis # R pleural effusion - Continuing hemodialysis - reviewed recommendations from Dr. Timmons, hemodialysis today then again on Friday, ordered CBC and BMP for Friday morning - midodrine for hypotension - BP and heart rate improved after pacemaker - monitor hyperkalemia with bactrim # atrial fibrillation with rapid ventricular rate - rate control was impossible to achieve despite metoprolol and diltiazem, dosing has been limited by hypotension especially with dialysis despite midodrine. He is a poor candidate for amiodarone because of liver dysfunction - Dr. Mitchell consulted, performed ablation and pacemaker 05/13. 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 weight of edema has been playing a role - this is much improved B1 level was normal at 185 checked CPK - wnl B12 level -605 # autoimmune hepatitis diagnosed July 2023 secondary to immunotherapy for renal cell ca - chronic steroids since then steroid burst 03/2024 to 70 mg, weaning by 10 mg per week -decreased to 40 mg on 05/12 -continues to have elevated LFT and thrombocytopenia. could have hepatic congestion from volume overload. GI consulted this admission. Liver ultrasound obtained. -AST/ALT bili have been up and down, monitor CMP. -thrombocytopenia dates back to Nov 2023. He does have hepatomegaly and some appearance of cirrhosis on recent US. No splenomegaly on CT last fall, but larson spect splenic sequestration is playing a role -PJP ppx with bactrim until prednisone <20 mg/day # prediabetes with steroid-induced hyperglycemia A1c 6.1% -continue PRN premeal insulin # stage 4 RCC, hx R nephrectomy - follow up with Dr. Grijalva. Opdivo. # rhinovirus, bibasilar bacterial pneumonia - completed antibiotics # myocardial demand ischemia in setting of volume overload, rapid a.fib, rh inovirus infection, pneumonia # hx TAVR normal function 04/17 # SARAH - cont CPAP # morbid obesity BMI 38.5 # hypothyroidism - cont levothyroxine VTE ppx: apixaban PT/OT rec rehab - medically ready as soon as Friday I have updated his who is in the room daily, 05/15 Admission and Anticipated Discharge Date Admission Date: April 28, 2024 Subjective feels good today with respect to his breathing, continues to have anasarca but it is also slowly improving, remains very weak especially his legs Physical Exam Physical Exam: PHYSICAL EXAMINATION Last 24h vital signs reviewed, see documentation in flowsheet General: awake sitting up in bed HEENT: Normocephalic, atraumatic, pupils round and equal, sclerae anicteric, no conjunctival injection, moist mucus membranes Lungs: normal WOB, clear to auscultation bilaterally no rhonchi rales or wheezes, diminished/ absent right base Heart: regular no murmurs rubs or gallops, left chest pacemaker site without evidence of hematoma, some expected bruising, right upper chest tunneled hemodialysis dialysis line Abdomen: nondistended Extremities: Warm, dry, well-perfused. 2+ bilateral lower extremity edema and 3+ pedal edema. edema continues to slowly improve- better today than yesterday Neuro: Alert and oriented x 4, face symmetric, moves 4 extremities, generalized weakness persists Psych: Normal affect and behavior Results & Data Results & Data Vital Signs (Past 12 Hours) Vital Signs Temp Pulse Pulse Pulse Resp BP BP 05/15/24 16:35 97.5 F L 88 111/73 05/15/24 16:15 89 98/60 L 05/15/24 16:00 89 87/59 L 05/15/24 15:30 89 108/70 05/15/24 15:00 89 99/67 L 05/15/24 14:30 90 99/65 L 05/15/24 14:26 88 118/73 05/15/24 14:22 97.7 F 88 05/15/24 14:10 90 115/73 05/15/24 13:00 89 05/15/24 10:48 97.5 F L 97 H 15 122/84 05/15/24 08:30 05/15/24 08:01 97.5 F L 88 18 117/83 Pulse Ox O2 Del Method O2 Flow Rate 05/15/24 16:35 05/15/24 16:15 05/15/24 16:00 05/15/24 15:30 05/15/24 15:00 05/15/24 14:30 05/15/24 14:26 05/15/24 14:22 05/15/24 14:10 05/15/24 13:00 05/15/24 10:48 97 Nasal Cannula 4 05/15/24 08:30 Nasal Cannula, CPAP 4 05/15/24 08:01 99 Nasal Cannula 4 PG Care Time/CCT Total # of Minutes Spent Total Time Spent with Patient: Total time spent is greater than 50% in coordination of care (as documented) at patient's floor/unit and/or counseling patient: Coding Level of Care Code 95763 SUB INP/OBS CARE MIN Diagnoses Acute pulmonary edema J81.0 Atrial fibrillation I48.91 Atrial fibrillation type: unspecified End stage renal disease on dialysis N18.6; Z99.2 Heart failure with preserved ejection fraction I50.30 Renal cell carcinoma C64.9 (2) Atrial fibrillation Atrial fibrillation type: unspecified Qualified Code(s): I48.91 - Unspecified atrial fibrillation
--- NOTE | 2024-05-16 10:26 | Nephrology Progress Note ---
Date of Service May 16, 2024 Assessment & Plan (1) End stage renal disease on dialysis: Plan: Completed treatment yesterday for UF. BP and volume status acceptable. Next HD treatment planned for tomorrow AM. Medications are appropriate for kidney function. Continue dietary sodium restriction. Maintain daily 1.5 L fluid limit. Document I/O's. Check a metabolic profile tomorrow AM. (2) Anemia: Plan: Venofer and Epogen provided 05/14. Repeat H/H tomorrow prior to HD. (3) Renal cell carcinoma: (4) Atrial fibrillation: Plan: AV maggie ablation and pacemaker placement on 05/13/2024. Anticoagulated with Eliquis. (5) Weakness: Plan: Anticipated discharge to rehab, possibly Friday. Admission and Anticipated Discharge Date Admission Date: April 28, 2024 Subjective No acute events overnight. Paige was seen and evaluated with his at the bedside this AM. He tolerated HD well yesterday. No complications with treatment. Fatigue and generalized weakness persist. Review of Systems Review of Systems: All systems reviewed & are unremarkable except as noted in HPI & below Physical Exam Constitutional: well developed and + morbidly obese; no acute distress Eyes: no scleral abnormality and no corneal abnormality ENMT: Mouth: oral mucous membranes not dry Neck: normal visual inspection and trachea midline Respiratory: normal respiratory effort Auscultation: lungs clear to auscultation bilaterally Cardiovascular: Rate/Rhythm: regular rate Heart Sounds: normal S1 and normal S2 Extremities: + edema and + AV fistula (thrombosed) Musculoskeletal: Extremities: no cyanosis and no clubbing Skin: + abnormal turgor, no jaundice and no pa llor Neurologic: Motor/Sensory: no tremor and no asterixis Psychiatric: Orientation: alert and oriented x 3 Results & Data Vital Signs (Past 12 Hours) Vital Signs Temp Pulse Resp BP Pulse Ox O2 Del Method 05/16/24 07:54 36.5 C 88 16 141/93 H 99 Room Air 05/16/24 02:58 36.8 C 89 16 116/81 98 CPAP 05/15/24 23:24 36.7 C 77 16 109/75 97 CPAP Laboratory Results Laboratory Results - last 24 hr 05/09/24 05/15/24 05/15/24 06:15 11:37 16:41 POC Glucose 120 H 157 H Whole Bld Vitamin B1 185 05/15/24 05/16/24 20:25 07:29 POC Glucose 162 H 146 H Whole Bld Vitamin B1 PG Care Time/CCT Total # of Minutes Spent Total Time Spent with Patient: Total time spent is greater than 50% in coordination of care (as documented) at patient's floor/unit and/or counseling patient: Coding Level of Care Code 76320 SUB INP/OBS CARE 3/50MIN Diagnoses End stage renal disease on dialysis N18.6; Z99.2 Anemia D64.9 Renal cell carcinoma C64.9 Atrial fibrillation I48.91 Atrial fibrillation type: unspecified Weakness R53.1 (4) Atrial fibrillation Atrial fibrillation type: unspecified Qualified Code(s): I48.91 - Unspecified atrial fibrillation
[2024-05-16] MEDS: ACETAMINOPHEN 325 MG TAB PO PRN (13:50)
--- NOTE | 2024-05-16 17:18 | Hospitalist Progress Note ---
Date of Service May 16, 2024 Assessment & Plan (1) Acute pulmonary edema: (2) Atrial fibrillation: (3) End stage renal disease on dialysis: (4) Heart failure with preserved ejection fraction: (5) Renal cell carcinoma: Plan 68-year-old gentleman with ESRD on dialysis (M/W/F), CHF, s/p TAVR, A-fib, stage 4 RCC, and SARAH presenting to ED for BLE weakness starting on the day of arrival. He has renal cell carcinoma and had treatment with Opdivo and initiation of dialysis 2 weeks prior to arrival. BioFire positive for entero-/rhinovirus. He was volume overloaded and developed flash pulmonary edema shortly after admission, this was treated with urgent dialysis. He had a recurrent episode of acute pulmonary edema several days later, again treated with urgent dialysis. He was then dialyzed daily through 05/10. heart rate controlled with his atrial fibrillation was an ongoing problem complicated by hypotension with AV maggie blockers despite midodrine. He underwent AV maggie ablation 05/13 with pacemaker placement. this past week he was dialyzed Friday and Friday, continues to be volume overloaded. Continues to be extremely weak # acute hypoxic respiratory failure due to acute/flash pulmonary edema in ED AM after admission, acute on chronic diastolic heart failure. Recurrent acute pulmonary edema on 05/02. Treated with daily dialysis # R pleural effusion - Continuing hemodialysis - reviewed recommendations from Dr. Timmons, hemodialysis Friday, ordered CBC and CMP for Friday morning - midodrine for hypotension - BP and heart rate improved after pacemaker - monitor hyperkalemia with bactrim - continues to be volume overloaded but now tolerating breaks between dialysis sessions # atrial fibrillation with rapid ventricular rate - rate control was impossible to achieve despite metoprolol and diltiazem, dosing has been limited by hypotension especially with dialysis despite midodrine. He is a poor candidate for amiodarone because of liver dysfunction - Dr. Mitchell consulted, performed ablation and pacemaker 05/13. 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 could have hepatic congestion from volume overload. GI consulted this admission. Liver ultrasound obtained. -thrombocytopenia dates back to Nov 2023. He does have hepatomegaly and some appearance of cirrhosis on recent US. No splenomegaly on CT last fall, but suspect splenic sequestration is playing a role -PJP ppx with bactrim until prednisone <20 mg/day -AST/ALT bili have been up and down, monitor CMP. check in a.m. # prediabetes with steroid-induced hyperglycemia A1c 6.1% -continue PRN premeal insulin # some bright red blood per rectum 05/15 appears to be hemorrhoidal bright red blood mixed with brown formed stoolmonitor # stage 4 RCC, hx R nephrectomy - follow up with Dr. Grijalva. Opdivo. # rhinovirus, bibasilar bacterial pneumonia - resolved, completed antibiotics # myocardial demand ischemia in setting of volume overload, rapid a.fib, rhinovirus infection, pneumonia # hx TAVR normal function 04/17 # SARAH - cont CPAP # morbid obesity BMI 38.5 # hypothyroidism - cont levothyroxine VTE ppx: apixaban PT/OT rec rehab - medically ready as soon as Friday I have updated his who is in the room daily, inc 05/16 Admission and Anticipated Discharge Date Admission Date: April 28, 2024 Subjective don feels like his breathing is fairly good today, today he got in the chair using the left with nursing which was very exciting continues to be extremely weak and really cannot move his legs around in bed standing trial x 3 sitting on EOB yesterday could not clear his buttocks off the bed Physical Exam Physical Exam: PHYSICAL EXAMINATION Last 24h vital signs reviewed, see documentation in flowsheet General: awake and alert HEENT: Normocephalic, atraumatic, pupils round and equal, sclerae anicteric, no conjunctival injection, moist mucus membranes Lungs: clear to auscultation bilaterally anteriorly, right side posteriorly is clear, left side which is the dependent side has some coarse rales and diminished or absent in the base Heart: regular no murmurs rubs or gallops, left chest pacemaker site without evidence of hematoma, some expected bruising, right upper chest tunneled hemodialysis dialysis line Abdomen: nondistended nontender Extremities: Warm, dry, well-perfused. 2+ bilateral lower extremity edema and 3+ pedal edema. edema continues to slowly improve- better again today Neuro: Alert and oriented x 4, face symmetric, moves 4 extremities, generalized weakness persists bilateral lower extremities greater than upper extremities Psych: Normal affect and behavior Results & Data Results & Data Vital Signs (Past 12 Hours) Vital Signs Temp Pulse Pulse Resp BP Pulse Ox O2 Del Method 05/16/24 14:00 89 05/16/24 11:20 98.1 F 95 H 20 123/80 98 Nasal Cannula 05/16/24 07:54 97.7 F 88 16 141/93 H 99 Nasal Cannula 05/16/24 07:00 89 O2 Flow Rate 05/16/24 14:00 05/16/24 11:20 4 05/16/24 07:54 4 05/16/24 07:00 PG Care Time/CCT Total # of Minutes Spent Total Time Spent with Patient: Total time spent is greater than 50% in coordination of care (as documented) at patient's floor/unit and/or counseling patient: Coding Level of Care Code 94344 SUB INP/OBS CARE 2/35MIN Diagnoses Acute pulmonary edema J81.0 Atrial fibrillation I48.91 Atrial fibrillation type: unspecified End stage renal disease on dialysis N18.6; Z99.2 Heart failure with preserved ejection fraction I50.30 Renal cell carcinoma C64.9 (2) Atrial fibrillation Atrial fibrillation type: unspecified Qualified Code(s): I48.91 - Unspecified atrial fibrillation
[2024-05-17 06:50] LABS: Hemoglobin 8.6 g/dl (14.0-18.0); Mean Corpuscular Hemoglobin 26.1 pg (25.0-34.0); Mean Corpuscular Hgb Conc 28.7 g/dL (32.0-36.0); Mean Corpuscular Volume 90.9 fL (80.0-100.0); Platelet Count 32 K/uL (130-400); RDW Coefficient of Variation 26.8 % (11.5-14.5); RDW Standard Deviation 72.6 fL (36.4-46.3); White Blood Count 7.75 K/ul (4.8-10.8)
[2024-05-17 07:24] LABS: Albumin Globulin Ratio 1.3 (0.9-2); Albumin Level 2.9 gm/dl (3.4-5.0); BUN Creatinine Ratio 14.2 (10-20); Bilirubin,Total 2.2 mg/dl (0.2-1.0); Calcium 9.4 mg/dl (8.6-10.3); Creatinine Clr Calc Pharmacy 19.2 ml/min; Globulin 2.2 gm/dl (2.5-4.0); Potassium 4.4 mmol/L (3.5-5.1); Total Protein 5.1 gm/dl (6.0-8.3)
[2024-05-17 07:26] LABS: Nucleated RBC # (auto) 0.82 K/uL (0.00-0.12); Nucleated RBC % (auto) 10.6 %
--- NOTE | 2024-05-17 09:21 | Nephrology Progress Note ---
Date of Service May 17, 2024 Assessment & Plan (1) End stage renal disease on dialysis: Plan: Orders for HD today entered into the EHR and reviewed with subway repair supervisor. Patient was seen and evaluated during treatment. Tolerating HD well. Medications are appropriate for kidney function. Continue dietary sodium restriction. Maintain daily 1.5 L fluid limit. Document I/O's. Document daily AM weight. Check a metabolic profile tomorrow AM. (2) Anemia: Plan: Venofer and Epogen provided 05/14. (3) Renal cell carcinoma: (4) Atrial fibrillation: Plan: AV maggie ablation and pacemaker placement on 05/13/2024. Anticoagulated with Eliquis. (5) Weakness: Plan: Anticipated discharge to rehab, possibly Friday. Admission and Anticipated Discharge Date Admission Date: April 28, 2024 Subjective No acute events overnight. Paige was seen and evaluated during hemodialysis this AM. He is tolerating treatment well. No complications with dialysis noted. Review of Systems Review of Systems: All systems reviewed & are unremarkable except as noted in HPI & below Physical Exam Constitutional: well developed; no acute distress Eyes: + anicteric sclerae ENMT: Mouth: oral mucous membranes not dry Neck: normal visual inspection and trachea midline RIJ TDC Respiratory: normal respiratory effort Auscultation: lungs clear to auscultation bilaterally Cardiovascular: Rate/Rhythm: regular rate and regular rhythm Heart Sounds: normal S1 and normal S2 Extremities: + edema and + AV fistula (thrombosed) Musculoskeletal: Extremities: no cyanosis and no clubbing Skin: + turgor decreased and + ecchymosis; no jaundice Neurologic: Motor/Sensory: no tremor and no asterixis Psychiatric: Orientation: alert and oriented x 3 Results & Data Vital Signs (Past 12 Hours) Vital Signs Temp Pulse Pulse Pulse Resp BP BP 05/17/24 09:00 89 118/79 05/17/24 08:38 90 114/78 05/17/24 08:32 36.5 C 91 H 05/17/24 07:35 36.5 C 70 18 126/84 05/17/24 04:57 36.3 C L 89 18 124/75 05/16/24 23:39 36.4 C L 87 18 118/74 05/16/24 21:58 93 H Pulse Ox O2 Del Method O2 Flow Rate 05/17/24 09:00 05/17/24 08:38 02/24/25 08:32 05/17/24 07:35 94 Nasal Cannula 4 05/17/24 04:57 96 Nasal Cannula 4.0 05/16/24 23:39 90 CPAP 05/16/24 21:58 Laboratory Results Laboratory Results - last 24 hr 05/16/24 05/16/24 05/16/24 11:49 16:35 20:14 WBC RBC Hgb Hct MCV MCH MCHC RDW Std Deviation RDW Coeff of Nick Plt Count Absolute Nucleated RBC Nucleated RBC % (auto) Sodium Potassium Chloride Carbon Dioxide Anion Gap BUN Creatinine Est Cr Clr Drug Dosing eGFR BUN/Creatinine Ratio Glucose POC Glucose 129 H 166 H 134 H Calcium Total Bilirubin AST ALT Alkaline Phosphatase Total Protein Albumin Globulin Albumin/Globulin Ratio 05/17/24 05/17/24 05:59 07:34 WBC 7.75 RBC 3.30 L Hgb 8.6 L Hct 30.0 L MCV 90.9 MCH 26.1 MCHC 28.7 L RDW Std Deviation 72.6 H RDW Coeff of Nick 26.8 H Plt Count 32 L Absolute Nucleated RBC 0.82 H Nucleated RBC % (auto) 10.6 Sodium 137 Potassium 4.4 Chloride 97 L Carbon Dioxide 26 Anion Gap 14 H BUN 77 H Creatinine 5.44 H* Est Cr Clr Drug Dosing 19.2 eGFR 10.61 BUN/Creatinine Ratio 14.2 Glucose 136 H POC Glucose 133 H Calcium 9.4 Total Bilirubin 2.2 H AST 59 H ALT 9 Alkaline Phosphatase 266 H Total Protein 5.1 L Albumin 2.9 L Globulin 2.2 L Albumin/Globulin Ratio 1.3 PG Care Time/CCT Total # of Minutes Spent Total Time Spent with Patient: Total time spent is greater than 50% in coordination of care (as documented) at patient's floor/unit and/or counseling patient: Coding Level of Care Code 26135 SUB INP/OBS CARE 3/50MIN Diagnoses End stage renal disease on dialysis N18.6; Z99.2 Anemia D64.9 Renal cell carcinoma C64.9 Atrial fibrillation I48.91 Atrial fibrillation type: unspecified Weakness R53.1 (4) Atrial fibrillation Atrial fibrillation type: unspecified Qualified Code(s): I48.91 - Unspecified atrial fibrillation
--- NOTE | 2024-05-17 18:33 | Hospitalist Progress Note ---
Date of Service May 17, 2024 Assessment & Plan (1) Acute pulmonary edema: (2) Atrial fibrillation: (3) End stage renal disease on dialysis: (4) Heart failure with preserved ejection fraction: (5) Renal cell carcinoma: Plan 68-year-old gentleman with ESRD on dialysis (M/W/F), CHF, s/p TAVR, A-fib, stage 4 RCC, and SARAH presenting to ED for BLE weakness starting on the day of arrival. He has renal cell carcinoma and had treatment with Opdivo and initiation of dialysis 2 weeks prior to arrival. BioFire positive for entero-/rhinovirus. He was volume overloaded and developed flash pulmonary edema shortly after admission, this was treated with urgent dialysis. He had a recurrent episode of acute pulmonary edema several days later, again treated with urgent dialysis. He was then dialyzed daily through 05/10. heart rate controlled with his atrial fibrillation was an ongoing problem complicated by hypotension with AV maggie blockers despite midodrine. He underwent AV maggie ablation 05/13 with pacemaker placement. this past week he was dialyzed Friday and Friday, continues to be volume overloaded. Continues to be extremely weak. Stable for discharge to [facility] for rehab at this time. # acute hypoxic respiratory failure due to acute/flash pulmonary edema in ED AM after admission, acute on chronic diastolic heart failure. Recurrent acute pulmonary edema on 05/02. Treated with daily dialysis # R pleural effusion - Continuing hemodialysis - MWF. had 4 sessions last week. tolerating much better after ablation/pacemaker - midodrine for hypotension - BP and heart rate improved after pacemaker - monitor hyperkalemia with bactrim - 4.4 today - tolerating - continues to be volume overloaded but now tolerating expected breaks between dialysis sessions # atrial fibrillation with rapid ventricular rate - RVR resolved - rate control was impossible to achieve despite metoprolol and diltiazem, dosing has been limited by hypotension especially with dialysis despite midodrine. He is a poor candidate for amiodarone because of liver dysfunction - Dr. Mitchell consulted, performed ablation and pacemaker 05/13. 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 weight of edema has been playing a role - but this is much improved and still cannot even move his legs around in bed B1 level was normal at 185 checked CPK - wnl B12 level -605 - has fresh pacemaker so MRI of spine is probably not an option right now, also heretofore he has really been unable to lie flat for that amount of time - EMG study would be helpful but not available as an inpatient - consider CT of his spine - but no back or neck pain and no history of falls - RN had him OOB to chair with lift yesterday - went well # autoimmune hepatitis diagnosed July 2023 secondary to immunotherapy for renal cell ca - chronic steroids since then steroid burst 03/2024 to 70 mg, weaning by 10 mg per week -decreased to 40 mg on 05/12 - taper ordered, will decrease tomorrow -continues to have elevated LFT and thrombocytopenia. could have hepatic congestion from volume overload. GI consulted this admission. Liver ultrasound obtained. -thrombocytopenia dates back to Nov 2023. He does have hepatomegaly and some appearance of cirrhosis on recent US. No splenomegaly on CT last fall, but suspect splenic sequestration is playing a role -PJP ppx with bactrim until prednisone <20 mg/day -AST/ALT bili have been up and down, monitor CMP. Bili 2.2 today - trending up but within recent range # prediabetes with steroid-induced hyperglycemia A1c 6.1% -continue PRN premeal insulin - good control # some bright red blood per rectum 05/15 appears to be hemorrhoidal bright red blood mixed with brown formed stoolmonitor. No recurrence yet, Hg stable # stage 4 RCC, hx R nephrectomy - follow up with Dr. Grijalva. Opdivo. # rhinovirus, bibasilar bacterial pneumonia - resolved, completed antibiotics # myocardial demand ischemia in setting of volume overload, rapid a.fib, rhinovirus infection, pneumonia # hx TAVR normal function 04/17 # SARAH - cont CPAP # morbid obesity BMI 38.5 # hypothyroidism - cont levothyroxine VTE ppx: apixaban PT/OT rec rehab - insurance [id number] denied acute rehab, planning for discharge to [facility] when bed available I have updated his who is in the room daily, last 05/17 Admission and Anticipated Discharge Date Admission Date: April 28, 2024 Subjective I saw him after HD and he's tired. Got short of breath getting back into bed but that resolved Wasn't short of breath early this AM Edema slowly improving Remains extremely weak Physical Exam 2 Physical Exam: PHYSICAL EXAMINATION Last 24h vital signs reviewed, see documentation in flowsheet General: awake and alert HEENT: Normocephalic, atraumatic, pupils round and equal, sclerae anicteric, no conjunctival injection, moist mucus membranes Lungs: CTAB anteriorly Heart: regular no murmurs rubs or gallops, left chest pacemaker site without evidence of hematoma, some expected bruising, right upper chest tunneled hemodialysis dialysis line - no change Abdomen: nondistended nontender Extremities: Warm, dry, well-perfused. 2+ bilateral lower extremity edema and 3+ pedal edema. edema slowly improves. massively better than on admission Neuro: Alert and oriented x 4, face symmetric, moves 4 extremities, generalized weakness persists bilateral lower extremities greater than upper extremities Psych: Normal affect and behavior Results & Data Results & Data Vital Signs (Past 12 Hours) Vital Signs Temp Pulse Pulse Pulse Resp BP BP 05/17/24 15:16 97.5 F L 89 18 135/82 05/17/24 12:50 97.5 F L 90 104/73 05/17/24 12:30 90 90/65 L 05/17/24 12:20 90 86/61 L 05/17/24 12:00 89 91/73 L 05/17/24 11:40 90 93/67 L 05/17/24 11:20 90 99/75 L 05/17/24 11:00 90 98/75 L 05/17/24 10:30 90 99/70 L 05/17/24 10:18 05/17/24 10:00 90 104/78 05/17/24 09:30 90 112/79 05/17/24 09:00 89 118/79 05/17/24 08:38 90 114/78 05/17/24 08:32 97.7 F 91 H 05/17/24 07:35 97.7 F 70 18 126/84 Pulse Ox O2 Del Method O2 Flow Rate 05/17/24 15:16 98 Nasal Cannula 4 05/17/24 12:50 05/17/24 12:30 05/17/24 12:20 05/17/24 12:00 05/17/24 11:40 05/17/24 11:20 05/17/24 11:00 05/17/24 10:30 05/17/24 10:18 Nasal Cannula 4 05/17/24 10:00 05/17/24 09:30 05/17/24 09:00 05/17/24 08:38 05/17/24 08:32 05/17/24 07:35 94 Nasal Cannula 4 Laboratory Results 05/17/24 05:59 05/17/24 05:59 PG Care Time/CCT Total # of Minutes Spent Total Time Spent with Patient: Total time spent is greater than 50% in coordination of care (as documented) at patient's floor/unit and/or counseling patient: Coding Level of Care Code 79998 SUB INP/OBS CARE 2/35MIN Diagnoses Acute pulmonary edema J81.0 Atrial fibrillation I48.91 Atrial fibrillation type: unspecified End stage renal disease on dialysis N18.6; Z99.2 Heart failure with preserved ejection fraction I50.30 Renal cell carcinoma C64.9 (2) Atrial fibrillation Atrial fibrillation type: unspecified Qualified Code(s): I48.91 - Unspecified atrial fibrillation
--- NOTE | 2024-05-18 10:06 | Nephrology Progress Note ---
Date of Service May 18, 2024 Assessment & Plan (1) End stage renal disease on dialysis: Plan: Completed HD yesterday with adequate UF and clearance. Next treatment planned for tomorrow. Medications are appropriate for kidney function. Continue dietary sodium restriction. Maintain daily 1.5 L fluid limit. Document I/O's. Document daily AM weight. Check a metabolic profile tomorrow AM. (2) Anemia: Plan: Venofer and Epogen provided 05/14. (3) Renal cell carcinoma: (4) Atrial fibrillation: Plan: AV maggie ablation and pacemaker placement on 05/13/2024. Anticoagulated with Eliquis. (5) Weakness: Plan: Anticipated discharge to rehab when bed available. Admission and Anticipated Discharge Date Admission Date: April 28, 2024 Subjective No acute events overnight. Very tired yesterday. Completed HD yesterday without complications. Slept well last night. Don continued to report significant weakness. He was seen and evaluated with his at the bedside. Review of Systems Review of Systems: All systems reviewed & are unremarkable except as noted in HPI & below Physical Exam Constitutional: well developed and + frail appearing; no acute distress Eyes: + anicteric sclerae ENMT: Mouth: oral mucous membranes not dry Neck: normal visual inspection and trachea midline Respiratory: normal respiratory effort Auscultation: lungs clear to auscultation bilaterally Cardiovascular: Rate/Rhythm: regular rate and regular rhythm Heart Sounds: normal S1 and normal S2 Extremities: + edema and + AV fistula (thrombosed) Musculoskeletal: Extremities: no cyanosis and no clubbing Skin: + turgor decreased and + ecchymosis; no jaundice Neurologic: Motor/Sensory: no tremor and no asterixis Psychiatric: Orientation: alert and oriented x 3 Results & Data Vital Signs (Past 12 Hours) Vital Signs Temp Pulse Resp BP Pulse Ox O2 Del Method O2 Flow Rate 05/18/24 07:13 36.5 C 90 16 114/80 94 Nasal Cannula 2 05/17/24 22:10 Nasal Cannula 2 Laboratory Results Laboratory Results - last 24 hr 05/17/24 05/17/24 05/17/24 13:02 16:35 20:29 POC Glucose 128 H 125 H 117 H 05/18/24 07:28 POC Glucose 114 H PG Care Time/CCT Total # of Minutes Spent Total Time Spent with Patient: Total time spent is greater than 50% in coordination of care (as documented) at patient's floor/unit and/or counseling patient: Coding Level of Care Code 05223 SUB INP/OBS CARE Diagnoses End stage renal disease on dialysis N18.6; Z99.2 Anemia D64.9 Renal cell carcinoma C64.9 Atrial fibrillation I48.91 Atrial fibrillation type: unspecified Weakness R53.1 (4) Atrial fibrillation Atrial fibrillation type: unspecified Qualified Code(s): I48.91 - Unspecified atrial fibrillation
--- NOTE | 2024-05-19 04:49 | Hospitalist Progress Note ---
Date of Service May 18, 2024 Assessment & Plan (1) End stage renal disease on dialysis: Plan: 68yo male - recent initiation of dialysis (M/W/F) for development of ESRD 03/2024, solitary kidney status (previous right nephrectomy for renal cell ca), A-fib, stage 4 renal cell cancer previously on Opdivo, HTN, hypercholesterolemia, hypothyroidism, and SARAH. Presented 04/28/24 with b/l leg weakness. BioFire positive for entero- /rhinovirus. CXR with pulmonary edema and new bilateral basilar infiltrates with small pleural effusions. Had had 9 serial HD sessions due to severe volume overload earlier in the admission. Last week required 4 sessions. This week's plan - M/W/F HD schedule. Appreciate [facility] [place] Nephrology assistance for HD needs. Volume status MARKEDLY improved since admission but likely still mildly hypervolemic. Continue midodrine to prevent intra-HD hypotension. (2) Acute hypoxic respiratory failure: Plan: stable on NC O2 multifactorial - pulmonary edema from ESRD status (and potentially liver dysfunction & cardiac issues), rhinovirus infection, +/- pneumonia rhinovirus & pneumonia clinically resolved continue HD for volume control stable on NC O2 during the day CPAP with sleep (3) Weakness: Plan: mainly proximal muscle weakness of hips - IMPROVED could have had a steroid myopathy lumbar spine issue cannot be ruled out but less likely checked B1 level - wnl checked CPK - wnl B12 level - 605 cont PT/OT as tolerated (4) Autoimmune hepatitis treated with steroids: Plan: 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 2nd to hepatic congestion from volume overload? combination of factors? HepA, HepB, and HepC ab's were NEGATIVE in 06/2023 LFTs remain mildly high despite steroids ; recheck in am to ensure stability ammonia level wnl ideally should be on PJP prophy until prednisone is <20mg/day use SS tmp/sulfa 1 tab M/W/F at HS for prophylaxis obtained formal GI consult to ensure nothing else is causing the liver dysfunction - they agree that it is likely due to immunotherapy/autoimmune +/- right heart failure/passive congestion (5) Pneumonia: Plan: b/l basilar -- clinically resolved could have been viral pneumonia 2nd to rhinovirus could have been bacterial superinfection completed 7+ days if IV/PO abx cont TMP/sulfa for PJP prophylaxis (6) Rhinovirus: Plan: earlier this admission resolved (7) MARILEE (acute kidney injury): Plan: 03/2024 - with ultimate need for HD see above in #1 (8) Atrial fibrillation with rapid ventricular response: Plan: poor rate control despite meto succ BID + cardizem CD 120mg HS earlier this admission on Eliquis 2.5mg BID for anticoagulation poor candidate for amiodarone due to abnormal LFTs & autoimmune hepatitis hypotension precluded us from using higher doses of AV maggie agents cardioversion in the past not successful Dr Mitchell ultimately performed AV node ablation with permanent pacemaker inser tion on 05/13/24 tolerated such needed platelets for the procedure appreciate his assistance (9) Elevated troponin: Plan: peak HS trop 103 early in the admission no evidence of ACS likely myocardial demand ischemia in setting of volume overload from #1, rapid a.fib, rhinovirus infection, ?pneumonia, etc. (10) SARAH (obstructive sleep apnea): Plan: cont home CPAP (11) Hypothyroidism: Plan: TSH 03/2024 wnl cont synthroid (12) Morbid obesity with BMI of 40.0-44.9, adult: Plan: BMI 39 (13) Thrombocytopenia: Plan: 30s to 70s range while here without bleeding s/p platelet transfusion on 05/13/24 for pacemaker insertion B12/folate levels wnl 2nd to Opdivo? 2nd to liver dysfunction? combination of factors? repeat CBC in am for stability if platelets drop to <30 would hold Eliquis (14) Renal cell carcinoma: Plan: stage 4 h/o right nephrectomy due to RCC follows with Dr Grijalva - cancer care clinic (15) S/P TAVR (transcatheter aortic valve replacement): Plan: last echo with normal valve function (04/17) (16) Prediabetes: Plan: Hba1c 6.1% in Mar 2024 controlled with novolog SSI Plan VTE prophylaxis - Eliquis 2.5mg BID cont PT/OT when able OOB to chair with lift when able discharge dispo - [facility]? [facility]? --> hopefully this week updated at bedside today, 05/18 Admission and Anticipated Discharge Date Admission Date: April 28, 2024 Subjective no events overnight using CPAP HS for sleep no episodes of dyspnea or orthopnea or PND sat in chair sometime this past weekend sat at side of bed with PT today motivated to get stronger eating fair legs still feel quite weak on schedule for HD tomorrow Review of Systems Review of Systems: CV - no chest pain pulm - no dyspnea at rest, no cough GI - no abd pain or N/V Physical Exam Physical Exam: gen - morbidly obese, NAD, lying comfortably in bed mouth - MMM neck - no JVD heart - RRR, s1 s2, 1/6 systolic murmur LSB lungs - minimally decreased BS bases, otherwise CTA b/l abd - soft NT ND BS+; chioma-umbilical hernia present - reducible ext - 1+ pitting edema feet; 1+ pitting edema of shins; pulses b/l feet 2+ psych - a/o x 3 skin - numerous optifoams b/l arms; pacemaker site left upper chest covered with steri strips; ecchymoses and petechiae present left upper chest neuro - strength of hip flexion MUCH better in comparison to prior exams; strength of ankles (dorsiflexion/plantarflexion) 07/26 Results & Data Results & Data Vital Signs (Past 12 Hours) Vital Signs Temp Pulse Resp BP Pulse Ox O2 Del Method O2 Flow Rate 05/18/24 07:13 36.5 C 90 16 114/80 94 Nasal Cannula 2 Laboratory Results Laboratory Results - last 24 hr 05/18/24 05/18/24 05/18/24 07:28 11:33 16:31 POC Glucose 114 H 112 H 121 H 05/18/24 20:48 POC Glucose 128 H PG Care Time/CCT Total # of Minutes Spent Total Time Spent with Patient: Total time spent is greater than 50% in coordination of care (as documented) at patient's floor/unit and/or counseling patient: Coding Level of Care Code 61402 SUB INP/OBS CARE 2/35MIN Diagnoses End stage renal disease on dialysis N18.6; Z99.2 Acute hypoxic respiratory failure J96.01 Weakness R53.1 Autoimmune hepatitis treated with steroids K75.4 Pneumonia J18.9 Rhinovirus B34.8 MARILEE (acute kidney injury) N17.9 Atrial fibrillation with rapid ventricular response I48.91 Elevated troponin R79.89 SARAH (obstructive sleep apnea) G47.33 Hypothyroidism E03.9 Morbid obesity with BMI of 40.0-44.9, adult E66.01; Z68.41 Thrombocytopenia D69.6 Renal cell carcinoma C64.9 S/P TAVR (transcatheter aortic valve replacement) Z95.2 Prediabetes R73.03
[2024-05-19 07:00] LABS: Albumin Level 2.9 gm/dl (3.4-5.0); BUN Creatinine Ratio 13.7 (10-20); Bilirubin,Total 3.5 mg/dl (0.2-1.0); Calcium 9.1 mg/dl (8.6-10.3); Creatinine Clr Calc Pharmacy 20.9 ml/min; Phosphorus 7.7 mg/dl (2.5-4.9); Potassium 4.2 mmol/L (3.5-5.1); Total Protein 5.2 gm/dl (6.0-8.3)
[2024-05-19 07:47] LABS: Hematocrit (blood only) 29.5 % (42.0-52.0); Hemoglobin 8.7 g/dl (14.0-18.0); Mean Corpuscular Hemoglobin 27.1 pg (25.0-34.0); Mean Corpuscular Hgb Conc 29.5 g/dL (32.0-36.0); Mean Corpuscular Volume 91.9 fL (80.0-100.0); Nucleated RBC % (auto) 10.4 %; Platelet Count 31 K/uL (130-400); RDW Coefficient of Variation 28.3 % (11.5-14.5); RDW Standard Deviation 75.7 fL (36.4-46.3); Red Blood Count 3.21 M/uL (4.70-6.10)
--- NOTE | 2024-05-19 12:46 | Nephrology Progress Note ---
Date of Service May 19, 2024 Assessment & Plan (1) End stage renal disease on dialysis: Plan: Orders for HD entered into the EHR and reviewed with the software support specialist. Medications are appropriate for kidney function. Continue dietary sodium restriction. Maintain daily 1.5 L fluid limit. Document I/O's. Document daily AM weight. (2) Anemia: Plan: Venofer and Epogen provided 05/14. (3) Renal cell carcinoma: (4) Atrial fibrillation: Plan: AV maggie ablation and pacemaker placement on 05/13/2024. Anticoagulated with Eliquis. (5) Weakness: Plan: Anticipated discharge to rehab when bed available. Admission and Anticipated Discharge Date Admission Date: April 28, 2024 Subjective No acute events overnight. Paige is tolerating HD well. Profound weakness persists. Review of Systems Review of Systems: All systems reviewed & are unremarkable except as noted in HPI & below Physical Exam Constitutional: well developed and + frail appearing; no acute distress Eyes: + conjunctival abnormality and + anicter ic sclerae ENMT: Mouth: oral mucous membranes not dry Neck: normal visual inspection and trachea midline Respiratory: normal respiratory effort Auscultation: lungs clear to ausc ultation bilaterally Cardiovascular: Rate/Rhythm: regular rate and regular rhythm Heart Sounds: normal S1 and normal S2 Extremities: + edema and + AV fistula (thrombosed) Musculoskeletal: Extremities: no cyanosis and no clubbing Skin: + turgor decreased; no jaundice and no p allor Neurologic: Motor/Sensory: no tremor and no asterixis Psychiatric: Orientation: alert and oriented x 3 Results & Data Vital Signs (Past 12 Hours) Vital Signs Temp Pulse Pulse Pulse Pulse Resp BP 05/19/24 11:30 89 117/84 05/19/24 11:00 89 125/86 05/19/24 10:30 89 128/85 05/19/24 10:00 89 125/87 05/19/24 09:30 89 126/91 05/19/24 09:24 36.6 C 89 05/19/24 08:03 36.5 C 87 18 05/19/24 07:50 05/19/24 07:09 36.6 C 89 18 BP Pulse Ox O2 Del Method O2 Flow Rate 05/19/24 11:30 05/19/24 11:00 05/19/24 10:30 05/19/24 10:00 05/19/24 09:30 05/19/24 09:24 05/19/24 08:03 128/88 Room Air 05/19/24 07:50 Oxymask 2 05/19/24 07:09 129/83 97 Nasal Cannula 3 Laboratory Results Laboratory Results - last 24 hr 05/18/24 05/18/24 05/19/24 16:31 20:48 05:18 WBC 6.70 RBC 3.21 L Hgb 8.7 L Hct 29.5 L MCV 91.9 MCH 27.1 MCHC 29.5 L RDW Std Deviation 75.7 H RDW Coeff of Nick 28.3 H Plt Count 31 L Absolute Nucleated RBC 0.70 H Nucleated RBC % (auto) 10.4 Sodium 136 Potassium 4.2 Chloride 97 L Carbon Dioxide 25 Anion Gap 14 H BUN 68 H Creatinine 4.98 H* D Est Cr Clr Drug Dosing 20.9 eGFR 11.79 BUN/Creatinine Ratio 13.7 Glucose 106 H POC Glucose 121 H 128 H Calcium 9.1 Phosphorus 7.7 H Total Bilirubin 3.5 H D Direct Bilirubin 2.0 H AST 62 H ALT 10 Alkaline Phosphatase 251 H Total Protein 5.2 L Albumin 2.9 L 05/19/24 05/19/24 07:44 12:35 WBC RBC Hgb Hct MCV MCH MCHC RDW Std Deviation RDW Coeff of Nick Plt Count Absolute Nucleated RBC Nucleated RBC % (auto) Sodium Potassium Chloride Carbon Dioxide Anion Gap BUN Creatinine Est Cr Clr Drug Dosing eGFR BUN/Creatinine Ratio Glucose POC Glucose 114 H 145 H Calcium Phosphorus Total Bilirubin Direct Bilirubin AST ALT Alkaline Phosphatase Total Protein Albumin PG Care Time/CCT Total # of Minutes Spent Total Time Spent with Patient: Total time spent is greater than 50% in coordination of care (as documented) at patient's floor/unit and/or counseling patient: Coding Level of Care Code 57971 SUB INP/OBS CARE 3/50MIN Diagnoses End stage renal disease on dialysis N18.6; Z99.2 Anemia D64.9 Renal cell carcinoma C64.9 Atrial fibrillation I48.91 Atrial fibrillation type: unspecified Weakness R53.1 (4) Atrial fibrillation Atrial fibrillation type: unspecified Qualified Code(s): I48.91 - Unspecified atrial fibrillation
--- NOTE | 2024-05-19 19:37 | Hospitalist Progress Note ---
Date of Service May 19, 2024 Assessment & Plan (1) End stage renal disease on dialysis: Plan: 68yo male - recent initiation of dialysis (M/W/F) for development of ESRD 03/2024, solitary kidney status (previous right nephrectomy for renal cell ca), A-fib, stage 4 renal cell cancer previously on Opdivo, HTN, hypercholesterolemia, hypothyroidism, and SARAH. Presented 04/28/24 with b/l leg weakness. BioFire positive for entero- /rhinovirus. CXR with pulmonary edema and new bilateral basilar infiltrates with small pleural effusions. Had had 9 serial HD sessions due to severe volume overload earlier in the admission. Last week required 4 sessions. This week's plan - M/W/F HD schedule. Appreciate [facility] Nephrology assistance for HD needs. Volume status MARKEDLY improved since admission. Continue midodrine to prevent intra-HD hypotension. (2) Acute hypoxic respiratory failure: Plan: stable on NC O2 multifactorial - pulmonary edema from ESRD status (and potentially liver dysfunction & cardiac issues), rhinovirus infection, +/- pneumonia rhinovirus & pneumonia clinically resolved continue HD for volume control stable on NC O2 during the day CPAP with sleep suspect residual pleural effusions based on past imaging and exam findings (3) Weakness: Plan: mainly proximal muscle weakness of hips - IMPROVED severe deconditioning as well could have had a steroid myopathy lumbar spine issue cannot be ruled out but less likely checked B1 level - wnl checked CPK - wnl B12 level - 605 cont PT/OT as tolerated needs intensive rehab - he was walking at home prior to this hospitalization (4) Autoimmune hepatitis treated with steroids: Plan: 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 2nd to hepatic congestion from volume overload? combination of factors? HepA, HepB, and HepC ab's were NEGATIVE in 06/2023 LFTs remain mildly high despite steroids including today's LFTs; repeat in am ammonia level wnl ideally should be on PJP prophy until prednisone is <20mg/day use SS tmp/sulfa 1 tab M/W/F at HS for prophylaxis obtained formal GI consult to ensure nothing else is causing the liver dysfunction - they agree that it is likely due to immunotherapy/autoimmune +/- right heart failure/passive congestion (5) Pneumonia: Plan: b/l basilar -- clinically resolved could have been viral pneumonia 2nd to rhinovirus could have been bacterial superinfection completed 7+ days if IV/PO abx cont TMP/sulfa for PJP prophylaxis (6) Rhinovirus: Plan: earlier this admission resolved (7) MARILEE (acute kidney injury): Plan: 03/2024 - with ultimate need for HD see above in #1 (8) Atrial fibrillation with rapid ventricular response: Plan: poor rate control despite meto succ BID + cardizem CD 120mg HS earlier this admission on Eliquis 2.5mg BID for anticoagulation poor candidate for amiodarone due to abnormal LFTs & autoimmune hepatitis hypotension precluded us from using higher doses of AV maggie agents cardioversion in the past not successful Dr Mitchell ultimately performed AV node ablation with permanent pacemaker insertion on 05/13/24 tolerated such needed platelets for the procedure appreciate his assistance (9) Elevated troponin: Plan: peak HS trop 103 early in the admission no evidence of ACS likely myocardial demand ischemia in setting of volume overload from #1, rapid a.fib, rhinovirus infection, ?pneumonia, etc. (10) SARAH (obstructive sleep apnea): Plan: cont home CPAP (11) Hypothyroidism: Plan: TSH 03/2024 wnl cont synthroid (12) Morbid obesity with BMI of 40.0-44.9, adult: Plan: BMI 39 (13) Thrombocytopenia: Plan: 30s to 70s range while here without bleeding s/p platelet transfusion on 05/13/24 for pacemaker insertion B12/folate levels wnl 2nd to Opdivo? 2nd to liver dysfunction? combination of factors? platelets today noted - 31 if platelets drop to <30 would hold Eliquis (14) Renal cell carcinoma: Plan: stage 4 h/o right nephrectomy due to RCC follows with Dr Grijalva - cancer care clinic remaining left kidney has cysts vs masses on last imaging study - this bears watching (15) S/P TAVR (transcatheter aortic valve replacement): Plan: last echo with normal valve function (04/17) (16) Prediabetes: Plan: Hba1c 6.1% in Mar 2024 controlled with novolog SSI (17) Blood per rectum: Plan: 2nd small hemorrhoids? vs fissure I could not see? either way it is anal outlet -- doubt diverticulosis or something colonic start anusol suppos BID h/h have been stable despite blood per rectum Plan VTE prophylaxis - Eliquis 2.5mg BID cont PT/OT discharge dispo - [facility] updated at bedside today, 05/19 peer to peer completed with [employer] today they extended his insurance review until 05/20 they will need updated PT notes from AM of 05/20 to make final determination made family aware Admission and Anticipated Discharge Date Admission Date: April 28, 2024 Subjective had HD today HD was cut short due to issues with the dialysis machine earlier today there was blood with wiping after having a bowel movement denies any abd pain has had colonoscopies - they were negative in the past; he doesn't recall any d iverticular disease he had blood in his stool a few days ago when he strained to have a BM eating well denies any dyspnea at rest completed peer to peer with the medical insurance coding specialist at [facility] medical insurance coding specialist requested updated therapy notes tomorrow and a final determination for [facility] will be made tomorrow mid-day pt/ made aware Review of Systems Review of Systems: gen - no fevers or chills cv - no chest pain; no orthopnea pulm - no dyspnea at rest; no cough GI - no N/V Physical Exam Physical Exam: gen - morbidly obese, NAD, lying comfortably in bed (nearly flat); finishing his meal mouth - MMM neck - no JVD heart - RRR, s1 s2, 1/6 systolic murmur LSB lungs - mildly decreased BS bases, otherwise CTA b/l abd - soft NT ND BS+; chioma-umbilical hernia present - reducible rectal - no impaction; no obvious fissure; 2 small hemorrhoids present at about 12 o'clock ? no masses; minimal gross blood present ext - 1+ pitting edema feet; 1+ pitting edema of shins; pulses b/l feet 2+ psych - a/o x 3 skin - numerous optifoams b/l arms; pacemaker site left upper chest covered with steri strips; ecchymoses and petechiae present left upper chest Results & Data Results & Data Vital Signs (Past 12 Hours) Vital Signs Temp Pulse Pulse Pulse Pulse Resp BP 05/19/24 19:36 36.7 C 89 18 05/19/24 16:33 36.4 C L 87 18 05/19/24 12:40 36.6 C 87 18 05/19/24 12:25 36.6 C 89 05/19/24 12:00 89 116/79 05/19/24 11:30 89 117/84 05/19/24 11:00 89 125/86 05/19/24 10:30 89 128/85 05/19/24 10:00 89 125/87 05/19/24 09:30 89 126/91 05/19/24 09:24 36.6 C 89 05/19/24 08:03 36.5 C 87 18 05/19/24 07:50 BP Pulse Ox O2 Del Method O2 Flow Rate 05/19/24 19:36 116/72 98 Nasal Cannula 2 05/19/24 16:33 125/84 95 Nasal Cannula 2 05/19/24 12:40 142/94 H 99 Room Air 05/19/24 12:25 112/86 05/19/24 12:00 05/19/24 11:30 05/19/24 11:00 05/19/24 10:30 05/19/24 10:00 05/19/24 09:30 05/19/24 09:24 05/19/24 08:03 128/88 Room Air 05/19/24 07:50 Oxymask 2 Laboratory Results Laboratory Results - last 24 hr 05/18/24 05/19/24 05/19/24 20:48 05:18 07:44 WBC 6.70 RBC 3.21 L Hgb 8.7 L Hct 29.5 L MCV 91.9 MCH 27.1 MCHC 29.5 L RDW Std Deviation 75.7 H RDW Coeff of Nick 28.3 H Plt Count 31 L Absolute Nucleated RBC 0.70 H Nucleated RBC % (auto) 10.4 Sodium 136 Potassium 4.2 Chloride 97 L Carbon Dioxide 25 Anion Gap 14 H BUN 68 H Creatinine 4.98 H* D Est Cr Clr Drug Dosing 20.9 eGFR 11.79 BUN/Creatinine Ratio 13.7 Glucose 106 H POC Glucose 128 H 114 H Calcium 9.1 Phosphorus 7.7 H Total Bilirubin 3.5 H D Direct Bilirubin 2.0 H AST 62 H ALT 10 Alkaline Phosphatase 251 H Total Protein 5.2 L Albumin 2.9 L 05/19/24 05/19/24 12:35 16:21 WBC RBC Hgb Hct MCV MCH MCHC RDW Std Deviation RDW Coeff of Nick Plt Count Absolute Nucleated RBC Nucleated RBC % (auto) Sodium Potassium Chloride Carbon Dioxide Anion Gap BUN Creatinine Est Cr Clr Drug Dosing eGFR BUN/Creatinine Ratio Glucose POC Glucose 145 H 162 H Calcium Phosphorus Total Bilirubin Direct Bilirubin AST ALT Alkaline Phosphatase Total Protein Albumin PG Care Time/CCT Total # of Minutes Spent Total Time Spent with Patient: Total time spent is greater than 50% in coordination of care (as documented) at patient's floor/unit and/or counseling patient: Coding Level of Care Code 72562 SUB INP/OBS CARE 3/50MIN Diagnoses End stage renal disease on dialysis N18.6; Z99.2 Acute hypoxic respiratory failure J96.01 Weakness R53.1 Autoimmune hepatitis treated with steroids K75.4 Pneumonia J18.9 Rhinovirus B34.8 MARILEE (acute kidney injury) N17.9 Atrial fibrillation with rapid ventricular response I48.91 Elevated troponin R79.89 SARAH (obstructive sleep apnea) G47.33 Hypothyroidism E03.9 Morbid obesity with BMI of 40.0-44.9, adult E66.01; Z68.41 Thrombocytopenia D69.6 Renal cell carcinoma C64.9 S/P TAVR (transcatheter aortic valve replacement) Z95.2 Prediabetes R73.03 Blood per rectum K62.5
[2024-05-19] MEDS: HYDROCORTISONE ACETATE 25 MG SUPP PR SCH (20:37)
[2024-05-20 06:57] LABS: Albumin Level 2.9 gm/dl (3.4-5.0); Bilirubin,Total 3.5 mg/dl (0.2-1.0); Total Protein 5.1 gm/dl (6.0-8.3)
[2024-05-20 07:02] LABS: Albumin Level 2.9 gm/dl (3.4-5.0); BUN Creatinine Ratio 12.5 (10-20); Calcium 9.1 mg/dl (8.6-10.3); Creatinine Clr Calc Pharmacy 24.5 ml/min; Potassium 4.1 mmol/L (3.5-5.1)
[2024-05-20 07:13] LABS: Hematocrit (blood only) 29.3 % (42.0-52.0); Hemoglobin 8.4 g/dl (14.0-18.0); Mean Corpuscular Hemoglobin 26.8 pg (25.0-34.0); Mean Corpuscular Hgb Conc 28.7 g/dL (32.0-36.0); Mean Corpuscular Volume 93.6 fL (80.0-100.0); Nucleated RBC # (auto) 0.77 K/uL (0.00-0.12); Nucleated RBC % (auto) 11.6 %; Platelet Count 32 K/uL (130-400); Platelet Estimate Decreased (Normal); RDW Coefficient of Variation 29.5 % (11.5-14.5); RDW Standard Deviation 91.8 fL (36.4-46.3); Red Blood Count 3.13 M/uL (4.70-6.10); White Blood Count 6.62 K/ul (4.8-10.8)
--- NOTE | 2024-05-20 10:33 | Nephrology Progress Note ---
Date of Service May 20, 2024 Assessment & Plan (1) End stage renal disease on dialysis: Plan: Completed majority of prescribed treatment yesterday. Paige tolerates HD well. No patient complications. Adequate UF and clearance with HD yesterday. Next HD is planned for tomorrow. Medications are appropriate for kidney function. Continue dietary sodium restriction. Maintain daily 1.5 L fluid limit. Document I/O's. Document daily AM weight. (2) Anemia: Plan: Venofer and Epogen provided 05/14. (3) Renal cell carcinoma: (4) Atrial fibrillation: Plan: AV maggie ablation and pacemaker placement on 05/13/2024. Anticoagulated with Eliquis. (5) Weakness: Plan: Anticipated discharge to rehab. Admission and Anticipated Discharge Date Admission Date: April 28, 2024 Subjective No acute events overnight. Paige feels well this AM. He was working with PT when I saw him. He denies any dyspnea. Completed partial treatment of HD yesterday with net UF 2 L. Treatment was stopped due to mechanical issues with the machine and blood was not able to be returned. Review of Systems Review of Systems: All systems reviewed & are unremarkable except as noted in HPI & below Physical Exam Constitutional: well developed; no acute distress Eyes: + anicteric sclerae ENMT: Mouth: oral mucous membranes not dry Neck: normal visual inspection and trachea midline Respiratory: normal respiratory effort Auscultation: lungs clear to auscultation bilaterally Cardiovascular: Rate/Rhythm: regular rate and regular rhythm Heart Sounds: normal S1 and normal S2 Extremities: + edema and + AV fistula (thrombosed) Musculoskeletal: Extremities: no cyanosis and no clubbing Skin: no jaundice and no pallor Neurologic: Motor/Sensory: no tremor and no asterixis Psychiatric: Orientation: alert and oriented x 3 Results & Data Vital Signs (Past 12 Hours) Vital Signs Temp Pulse Resp BP Pulse Ox O2 Del Method O2 Flow Rate 05/20/24 07:49 36.6 C 89 16 139/96 99 Nasal Cannula 3 Laboratory Results Laboratory Results - last 24 hr 05/19/24 05/19/24 05/19/24 12:35 16:21 20:37 WBC RBC Hgb Hct MCV MCH MCHC RDW Std Deviation RDW Coeff of Nick Plt Count Absolute Nucleated RBC Nucleated RBC % (auto) Platelet Estimate Peripher Smr Path Cons Sodium Potassium Chloride Carbon Dioxide Anion Gap BUN Creatinine Est Cr Clr Drug Dosing eGFR BUN/Creatinine Ratio Glucose POC Glucose 145 H 162 H 152 H Calcium Phosphorus Total Bilirubin Direct Bilirubin AST ALT Alkaline Phosphatase Total Protein Albumin 05/20/24 05/20/24 05/20/24 05:42 05:42 07:47 WBC 6.62 RBC 3.13 L Hgb 8.4 L Hct 29.3 L MCV 93.6 MCH 26.8 MCHC 28.7 L RDW Std Deviation 91.8 H RDW Coeff of Nick 29.5 H Plt Count 32 L Absolute Nucleated RBC 0.77 H Nucleated RBC % (auto) 11.6 Platelet Estimate Decreased L Peripher Smr Path Cons Pending Sodium 136 Potassium 4.1 Chloride 100 Carbon Dioxide 27 Anion Gap 9 BUN 53 H Creatinine 4.25 H D Est Cr Clr Drug Dosing 24.5 eGFR 14.26 BUN/Creatinine Ratio 12.5 Glucose 95 POC Glucose 99 Calcium 9.1 Phosphorus 6.0 H Total Bilirubin 3.5 H Direct Bilirubin 2.0 H AST 65 H ALT 13 Alkaline Phosphatase 251 H Total Protein 5.1 L Albumin 2.9 L 2.9 L PG Care Time/CCT Total # of Minutes Spent Total Time Spent with Patient: Total time spent is greater than 50% in coordination of care (as documented) at patient's floor/unit and/or counseling patient: Coding Level of Care Code 18067 SUB INP/OBS CARE 3/50MIN Diagnoses End stage renal disease on dialysis N18.6; Z99.2 Anemia D64.9 Renal cell carcinoma C64.9 Atrial fibrillation I48.91 Atrial fibrillation type: unspecified Weakness R53.1 (4) Atrial fibrillation Atrial fibrillation type: unspecified Qualified Code(s): I48.91 - Unspecified atrial fibrillation
--- NOTE | 2024-05-20 18:27 | Hospitalist Progress Note ---
Date of Service May 20, 2024 Assessment & Plan (1) End stage renal disease on dialysis: Plan: 68yo male - recent initiation of dialysis (M/W/F) for development of ESRD 03/2024, solitary kidney status (previous right nephrectomy for renal cell ca), A-fib, stage 4 renal cell cancer previously on Opdivo, HTN, hypercholesterolemia, hypothyroidism, and SARAH. Presented 04/28/24 with b/l leg weakness. BioFire positive for entero- /rhinovirus. CXR with pulmonary edema and new bilateral basilar infiltrates with small pleural effusions. Had had 9 serial HD sessions due to severe volume overload earlier in the admission. Last week required 4 sessions. This week's plan - M/W/F HD schedule. Appreciate [facility] Nephrology assistance for HD needs. Volume status MARKEDLY improved since admission. Suspect that some of his LE edema is chronic lymphedema (pt/ state he has had edema "for years"). Continue midodrine to prevent intra-HD hypotension. (2) Acute hypoxic respiratory failure: Plan: stable on NC O2 multifactorial - pulmonary edema from ESRD status (and potentially liver dysfunction & cardiac issues), rhinovirus infection, +/- pneumonia rhinovirus & pneumonia clinically resolved continue HD for volume control stable on NC O2 during the day CPAP with sleep suspect residual pleural effusions based on past imaging and exam findings (3) Weakness: Plan: mainly proximal muscle weakness of hips - IMPROVING albeit very slowly severe deconditioning as well could have had a steroid myopathy lumbar spine issue cannot be ruled out but less likely (no paresthesias or radicular pain) checked B1 level - wnl checked CPK - wnl B12 level - 605 cont PT/OT as tolerated needs intensive rehab post-discharge - he was walking at home prior to this hospitalization (4) Autoimmune hepatitis treated with steroids: Plan: autoimmune hepatitis diagnosed July 2023 secondary to immunotherapy for renal cell ca has been on chronic steroids for such since that time during previous hospital stay in March 2024 was placed on steroid burst for this issue as well as concern that immunotherapy was contributing to his thrombocytopenia initially was on 70mg/day weaning every 7 days by 10mg increments thus, weaned to 50mg/day on 05/05 weaned to 40mg on 05/12 weaned to 30mg 05/19 hepatitis - 2nd to Opdivo? 2nd to hepatic congestion from volume overload? combination of factors? HepA, HepB, and HepC ab's were NEGATIVE in 06/2023 LFTs remain mildly high despite steroids including 05/19's LFTs ammonia level wnl continue PJP prophy until prednisone is <20mg/day; use SS tmp/sulfa 1 tab M/W/F at HS for prophylaxis K levels wnl obtained formal GI consult to ensure nothing else is causing the liver dysfunction - they agree that it is likely due to immunotherapy/autoimmune +/- right heart failure/passive congestion (5) Pneumonia: Plan: b/l basilar -- clinically resolved could have been viral pneumonia 2nd to rhinovirus could have been bacterial superinfection completed 7+ days if IV/PO abx cont TMP/sulfa for PJP prophylaxis (6) Rhinovirus: Plan: earlier this admission resolved (7) MARILEE (acute kidney injury): Plan: 03/2024 - with ultimate need for HD see above in #1 (8) Atrial fibrillation with rapid ventricular response: Plan: poor rate control despite meto succ BID + cardizem CD 120mg HS earlier this admission on Eliquis 2.5mg BID for anticoagulation poor candidate for amiodarone due to abnormal LFTs & autoimmune hepatitis hypotension precluded us from using higher doses of AV maggie agents cardioversion in the past not successful Dr Mitchell ultimately performed AV node ablation with permanent pacemaker insertion on 05/13/24 tolerated such needed platelets for the procedure appreciate his assistance he is pacing [id number] (pacer dependent due to AV node ablation) (9) Elevated troponin: Plan: peak HS trop 103 early in the admission no evidence of ACS likely myocardial demand ischemia in setting of volume overload from #1, rapid a.fib, rhinovirus infection, ?pneumonia, etc. (10) SARAH (obstructive sleep apnea): Plan: cont home CPAP (11) Hypothyroidism: Plan: TSH 03/2024 wnl cont synthroid (12) Morbid obesity with BMI of 40.0-44.9, adult: Plan: BMI 38 (13) Thrombocytopenia: Plan: 30s to 70s range while here without bleeding peak platelet count was 90s in March 2024 s/p platelet transfusion on 05/13/24 for pacemaker insertion B12/folate levels wnl formal peripheral smear done today --> nothing to suggest TTP/HUS; no evidence of DIC; nothing on smear to point to specific etiology 2nd to Opdivo? 2nd to liver dysfunction? other primary bone marrow d/o?? combination of factors? I corresponded with Dr Grijalva via [place] today Plan - HOLD ELIQUIS Bone marrow biopsy - likely Friday next week check viral studies - parvo, EBV, CMV (14) Renal cell carcinoma: Plan: stage 4 h/o right nephrectomy due to RCC follows with Dr Grijalva - cancer care clinic remaining left kidney has cysts vs masses on last imaging study - this bears watching (15) S/P TAVR (transcatheter aortic valve replacement): Plan: last echo with normal valve function (04/17) (16) Prediabetes: Plan: Hba1c 6.1% in Mar 2024 controlled with novolog SSI (17) Blood per rectum: Plan: 2nd small hemorrhoids? (vs fissure I could not see?) either way it is anal outlet -- doubt diverticulosis or something colonic start anusol suppos BID on 05/19 h/h have been stable despite blood per rectum Plan VTE prophylaxis - HOLD Eliquis 2.5mg BID cont PT/OT unfortunately we heard back from his insurance today - [facility] re[facility] DENIED will need rehab at SNF & other family updated at bedside today Admission and Anticipated Discharge Date Admission Date: April 28, 2024 Subjective no events overnight slept well last pm denies pain in any location no blood per rectum today eating well still quite weak - however, did work with PT this am and nearly stood at bedside patient/ aware that [facility] denied by insurance we also discussed the possibility of having a bone marrow bx next week due to persistent thrombocytopenia Review of Systems Review of Systems: gen - no fevers or chills cv - no chest pain, no orthopnea pulm - no dyspnea at rest GI - no N/V Physical Exam Physical Exam: gen - morbidly obese, NAD, lying comfortably in bed mouth - MMM, no thrush neck - no JVD heart - RRR, s1 s2, 1/6 systolic murmur LSB lungs - mildly decreased BS bases, otherwise CTA b/l; no rales; no wheezes abd - soft NT ND BS+; reducible chioma-umbilical hernia unchanged ext - 1-2+ pitting edema feet; 1+ pitting edema of shins; pulses b/l feet 2+; left foot is quite cold, right foot is warm; cap refill left foot despite the cold foot is 2 seconds, right foot 1 sec cap refill; several toes are dusky in appearance/venous pooling type appearance psych - a/o x 3 skin - numerous optifoams b/l arms; pacemaker site left upper chest covered with steri strips; ecchymoses and petechiae present left upper chest Results & Data Results & Data Vital Signs (Past 12 Hours) Vital Signs Temp Pulse Resp BP Pulse Ox O2 Del Method O2 Flow Rate 05/20/24 15:26 Nasal Cannula 2 05/20/24 15:15 36.5 C 90 18 125/78 94 Nasal Cannula 2 05/20/24 14:48 36.6 C 85 16 128/94 99 Nasal Cannula 3 05/20/24 10:27 98 05/20/24 08:10 Nasal Cannula 2 05/20/24 07:49 36.6 C 89 16 139/96 99 Nasal Cannula 3 Laboratory Results Laboratory Results - last 24 hr 05/19/24 05/20/24 05/20/24 20:37 05:42 05:42 WBC 6.62 RBC 3.13 L Hgb 8.4 L Hct 29.3 L MCV 93.6 MCH 26.8 MCHC 28.7 L RDW Std Deviation 91.8 H RDW Coeff of Nick 29.5 H Plt Count 32 L Absolute Nucleated RBC 0.77 H Nucleated RBC % (auto) 11.6 Platelet Estimate Decreased L Peripher Smr Path Cons Sodium 136 Potassium 4.1 Chloride 100 Carbon Dioxide 27 Anion Gap 9 BUN 53 H Creatinine 4.25 H D Est Cr Clr Drug Dosing 24.5 eGFR 14.26 BUN/Creatinine Ratio 12.5 Glucose 95 POC Glucose 152 H Calcium 9.1 Phosphorus 6.0 H Total Bilirubin 3.5 H Direct Bilirubin 2.0 H AST 65 H ALT 13 Alkaline Phosphatase 251 H Total Protein 5.1 L Albumin 2.9 L 2.9 L 05/20/24 05/20/24 05/20/24 07:47 11:19 16:24 WBC RBC Hgb Hct MCV MCH MCHC RDW Std Deviation RDW Coeff of Nick Plt Count Absolute Nucleated RBC Nucleated RBC % (auto) Platelet Estimate Peripher Smr Path Cons Sodium Potassium Chloride Carbon Dioxide Anion Gap BUN Creatinine Est Cr Clr Drug Dosing eGFR BUN/Creatinine Ratio Glucose POC Glucose 99 115 H 142 H Calcium Phosphorus Total Bilirubin Direct Bilirubin AST ALT Alkaline Phosphatase Total Protein Albumin PG Care Time/CCT Total # of Minutes Spent Total Time Spent with Patient: Total time spent is greater than 50% in coordination of care (as documented) at patient's floor/unit and/or counseling patient: Coding Level of Care Code 22350 SUB INP/OBS CARE 3/50MIN Diagnoses End stage renal disease on dialysis N18.6; Z99.2 Acute hypoxic respiratory failure J96.01 Weakness R53.1 Autoimmune hepatitis treated with steroids K75.4 Pneumonia J18.9 Rhinovirus B34.8 MARILEE (acute kidney injury) N17.9 Atrial fibrillation with rapid ventricular response I48.91 Elevated troponin R79.89 SARAH (obstructive sleep apnea) G47.33 Hypothyroidism E03.9 Morbid obesity with BMI of 40.0-44.9, adult E66.01; Z68.41 Thrombocytopenia D69.6 Renal cell carcinoma C64.9 S/P TAVR (transcatheter aortic valve replacement) Z95.2 Prediabetes R73.03 Blood per rectum K62.5
[2024-05-21 07:14] LABS: Hematocrit (blood only) 28.5 % (42.0-52.0); Hemoglobin 8.4 g/dl (14.0-18.0); Mean Corpuscular Hemoglobin 27.5 pg (25.0-34.0); Mean Corpuscular Hgb Conc 29.5 g/dL (32.0-36.0); Mean Corpuscular Volume 93.4 fL (80.0-100.0); Platelet Count 34 K/uL (130-400); RDW Coefficient of Variation 29.6 % (11.5-14.5); Red Blood Count 3.05 M/uL (4.70-6.10); White Blood Count 7.02 K/ul (4.8-10.8)
[2024-05-21 07:15] LABS: Nucleated RBC # (auto) 0.63 K/uL (0.00-0.12)
[2024-05-21 07:29] LABS: Albumin Level 2.9 gm/dl (3.4-5.0); BUN Creatinine Ratio 14.4 (10-20); Calcium 9.3 mg/dl (8.6-10.3); Creatinine Clr Calc Pharmacy 21.4 ml/min; Phosphorus 6.8 mg/dl (2.5-4.9); Potassium 4.4 mmol/L (3.5-5.1)
[2024-05-21 09:18] LABS: EBV Nuclear Antigen IgG Ab Positive; EBV Nuclear Antigen IgG Quant > 600.0 U/mL (< 18.0)
[2024-05-21 09:19] LABS: EBV IgG Quant > 750.0 U/mL (< 18.0); EBV IgM Quant 50.7 U/mL (< 36.0)
[2024-05-21] MEDS: IRON SUCROSE 100 MG in SYRINGE 0 ML IV ONE (11:04)
[2024-05-21] MEDS: EPOETIN ALFA 40,000 UNITS/ML VIAL IV ONE (11:05)
--- NOTE | 2024-05-21 19:26 | Hospitalist Progress Note ---
Date of Service May 21, 2024 Assessment & Plan (1) End stage renal disease on dialysis: Plan: 68yo male - recent initiation of dialysis (M/W/F) for development of ESRD 03/2024, solitary kidney status (previous right nephrectomy for renal cell ca), A-fib, stage 4 renal cell cancer previously on Opdivo, HTN, hypercholesterolemia, hypothyroidism, and SARAH. Presented 04/28/24 with b/l leg weakness. BioFire positive for entero- /rhinovirus. CXR with pulmonary edema and new bilateral basilar infiltrates with small pleural effusions. Had had 9 serial HD sessions due to severe volume overload earlier in the admission. Last week required 4 sessions. This week has been able to maintain M/W/F HD schedule with stable pulmonary status. Appreciate [facility] Nephrology assistance for HD needs. Volume status MARKEDLY improved since admission. Suspect that some of his LE edema is chronic lymphedema (pt/ state he has had edema "for years"). Continue midodrine to prevent intra-HD hypotension. (2) Acute hypoxic respiratory failure: Plan: stable on NC O2 multifactorial - pulmonary edema from ESRD status (and potentially liver dysfunction & cardiac issues), rhinovirus infection, +/- pneumonia rhinovirus & pneumonia resolved continue HD for volume control stable on NC O2 during the day CPAP with sleep suspect he has small residual pleural effusions based on past imaging and exam findings (3) Weakness: Plan: mainly proximal muscle weakness of hips - IMPROVING albeit very slowly severe deconditioning as well could have had a steroid myopathy lumbar spine issue cannot be ruled out but less likely (no paresthesias or radicular pain) checked B1 level - wnl checked CPK - wnl B12 level - 605 does patient have acute mono or subacute mono?? if yes this could be contributing - see below cont PT/OT as tolerated needs intensive rehab post-discharge - he was walking at home prior to this hospitalization will have such at [facility] (4) Autoimmune hepatitis treated with steroids: Plan: autoimmune hepatitis diagnosed July 2023 secondary to immunotherapy for renal cell ca has been on chronic steroids for such since that time during previous hospital stay in March 2024 was placed on steroid burst for this issue as well as concern that immunotherapy was contributing to his thrombocytopenia initially was on 70mg/day weaning every 7 days by 10mg increments thus, weaned to 50mg/day on 05/05 weaned to 40mg on 05/12 weaned to 30mg 05/19 hepatitis - 2nd to Opdivo? 2nd to hepatic congestion from volume overload? combination of factors? EBV IgM returned POSITIVE -- does patient have acute or subacute Sebastian? if yes this could be contributing to hepatitis & low platelets sending EBV PCR in am tomorrow CMV & parvovirus titers pending HepA, HepB, and HepC ab's were NEGATIVE in 06/2023 LFTs remain mildly high despite steroids including 05/19's LFTs ammonia level wnl continue PJP prophy until prednisone is <20mg/day; use SS tmp/sulfa 1 tab M/W/F at HS for prophylaxis K levels wnl obtained formal GI consult to ensure nothing else is causing the liver dysfunction - they agree that it is likely due to immunotherapy/autoimmune +/- right heart failure/passive congestion (5) Pneumonia: Plan: b/l basilar -- clinically resolved could have been viral pneumonia 2nd to rhinovirus could have been bacterial superinfection completed 7+ days if IV/PO abx cont TMP/sulfa for PJP prophylaxis (6) Rhinovirus: Plan: earlier this admission resolved (7) MARILEE (acute kidney injury): Plan: 03/2024 - with ultimate need for HD see above in #1 (8) Atrial fibrillation with rapid ventricular response: Plan: poor rate control despite meto succ BID + cardizem CD 120mg HS earlier this admission on Eliquis 2.5mg BID for anticoagulation poor candidate for amiodarone due to abnormal LFTs & autoimmune hepatitis hypotension precluded us from using higher doses of AV maggie agents cardioversion in the past not successful Dr Mitchell ultimately performed AV node ablation with permanent pacemaker insertion on 05/13/24 tolerated such needed platelets for the procedure appreciate his assistance he is pacing [id number] (pacer dependent due to AV node ablation) he was mildly tachy today & irregular - obtain EKG (9) Elevated troponin: Plan: peak HS trop 103 early in the admission no evidence of ACS likely myocardial demand ischemia in setting of volume overload from #1, rapid a.fib, rhinovirus infection, ?pneumonia, etc. (10) SARAH (obstructive sleep apnea): Plan: cont home CPAP (11) Hypothyroidism: Plan: TSH 03/2024 wnl cont synthroid (12) Morbid obesity with BMI of 40.0-44.9, adult: Plan: BMI 38 (13) Thrombocytopenia: Plan: 30s to 70s range while here without bleeding peak platelet count was 90s in March 2024 s/p platelet transfusion on 05/13/24 for pacemaker insertion B12/folate levels wnl formal peripheral smear --> nothing to suggest TTP/HUS; no evidence of DIC; nothing on smear to point to specific etiology 2nd to Opdivo? 2nd to liver dysfunction? other primary bone marrow d/o?? combination of factors? if he does have Sebastian/EBV that could be contributing sending EBV PCR with AM labs tomorrow I corresponded with Dr Grijalva via [place] yesterday & today Plan - HOLD ELIQUIS Bone marrow biopsy - likely Friday05/24/24 with IR CMV, parvovirus titers pending (14) Renal cell carcinoma: Plan: stage 4 h/o right nephrectomy due to RCC follows with Dr Grijalva - cancer care clinic remaining left kidney has cysts vs masses on last imaging study - this bears watching (15) S/P TAVR (transcatheter aortic valve replacement): Plan: last echo with normal valve function (04/17) (16) Prediabetes: Plan: Hba1c 6.1% in Mar 2024 controlled with novolog SSI (17) Blood per rectum: Plan: 2nd small hemorrhoids? (vs fissure I could not see?) either way it is anal outlet -- doubt diverticulosis or something colonic started anusol suppos BID on 05/19 h/h have been stable despite blood per rectum blood HAS improved since starting anusol Plan VTE prophylaxis - HOLD Eliquis 2.5mg BID likely start heparin bridge tomorrow since he is at high risk of VTE & stroke being off the eliquis cont PT/OT updated at bedside today dispo - [facility] - hopefully sometime next week Admission and Anticipated Discharge Date Admission Date: April 28, 2024 Subjective no events overnight had HD today - 3.5 L of UF removed w/o incident c/o fatigue only eating well no dyspnea at rest no new complaints we discussed bone marrow bx on Wednesday 05/24 no blood per rectum with recent stools Review of Systems Review of Systems: CV - no chest pain or orthopnea pulm - no dyspnea at rest; no PND GI - no abd pain or N/V Physical Exam Physical Exam: gen - morbidly obese, NAD, lying comfortably in bed mouth - MMM, no thrush neck - no JVD heart - mildly irregular, borderline tachy, s1 s2, 1/6 systolic murmur LSB lungs - mildly decreased BS bases, otherwise CTA b/l; no rales; no wheezes abd - soft NT ND BS+; reducible chioma-umbilical hernia unchanged ext - 2+ pitting edema feet; 1+ pitting edema of shins; pulses b/l feet 2+; left foot is quite cold - similar to prior exams; right foot is warm; cap refill left foot despite the cold foot is 2-3 seconds, right foot 1 sec cap refill; several toes are dusky in appearance/venous pooling type appearance left foot psych - a/o x 3 skin - numerous optifoams b/l arms; pacemaker site left upper chest covered with steri strips; ecchymoses and petechiae present left upper chest Results & Data Results & Data Vital Signs (Past 12 Hours) Vital Signs Temp Pulse Pulse Pulse Resp BP BP 05/21/24 13:59 36.4 C L 108 H 18 103/72 05/21/24 13:40 36.5 C 109 H 127/91 05/21/24 13:30 90 105/65 05/21/24 13:00 115 H 90/73 L 05/21/24 12:30 99 H 94/71 L 05/21/24 12:00 79 101/74 05/21/24 11:30 85 127/79 05/21/24 11:00 87 105/78 05/21/24 10:30 102 H 103/80 05/21/24 10:00 85 123/89 05/21/24 09:36 90 136/91 05/21/24 09:30 36.5 C 89 05/21/24 07:46 36.6 C 89 16 122/84 Pulse Ox O2 Del Method O2 Flow Rate 05/21/24 13:59 98 Room Air 05/21/24 13:40 05/21/24 13:30 05/21/24 13:00 05/21/24 12:30 05/21/24 12:00 05/21/24 11:30 05/21/24 11:00 05/21/24 10:30 05/21/24 10:00 05/21/24 09:36 05/21/24 09:30 05/21/24 07:46 99 Nasal Cannula 3 Laboratory Results Laboratory Results - last 24 hr 05/20/24 05/21/24 05/21/24 20:28 05:37 07:47 WBC 7.02 RBC 3.05 L Hgb 8.4 L Hct 28.5 L MCV 93.4 MCH 27.5 MCHC 29.5 L RDW Std Deviation 97.0 H RDW Coeff of Nick 29.6 H Plt Count 34 L Absolute Nucleated RBC 0.63 H Nucleated RBC % (auto) 9.0 Sodium 136 Potassium 4.4 Chloride 98 Carbon Dioxide 25 Anion Gap 13 H BUN 70 H Creatinine 4.87 H* D Est Cr Clr Drug Dosing 21.4 eGFR 12.11 BUN/Creatinine Ratio 14.4 Glucose 104 H POC Glucose 126 H 111 H Calcium 9.3 Phosphorus 6.8 H Albumin 2.9 L CMV IgM Ab Pending CMV IgG Ab/TORCH Pending EBV Capsid Ag IgG Ab Positive EBV Caps Ag IgG Sig Str > 750.0 EBV Capsid Ag IgM Ab Positive EBV Caps Ag IgM Sig Str 50.7 EBV Nuclear Antigen Ab Positive EBV Nucl Ag IgG Sig Str > 600.0 EBV Interpretation See Comment Parvovirus IgG Ab Index Pending Parvovirus IgM Ab Index Pending 05/21/24 05/21/24 13:55 16:45 WBC RBC Hgb Hct MCV MCH MCHC RDW Std Deviation RDW Coeff of Nick Plt Count Absolute Nucleated RBC Nucleated RBC % (auto) Sodium Potassium Chloride Carbon Dioxide Anion Gap BUN Creatinine Est Cr Clr Drug Dosing eGFR BUN/Creatinine Ratio Glucose POC Glucose 120 H 128 H Calcium Phosphorus Albumin CMV IgM Ab CMV IgG Ab/TORCH EBV Capsid Ag IgG Ab EBV Caps Ag IgG Sig Str EBV Capsid Ag IgM Ab EBV Caps Ag IgM Sig Str EBV Nuclear Antigen Ab EBV Nucl Ag IgG Sig Str EBV Interpretation Parvovirus IgG Ab Index Parvovirus IgM Ab Index PG Care Time/CCT Total # of Minutes Spent Total Time Spent with Patient: Total time spent is greater than 50% in coordination of care (as documented) at patient's floor/unit and/or counseling patient: Coding Level of Care Code 91545 SUB INP/OBS CARE 3/50MIN Diagnoses End stage renal disease on dialysis N18.6; Z99.2 Acute hypoxic respiratory failure J96.01 Weakness R53.1 Autoimmune hepatitis treated with steroids K75.4 Pneumonia J18.9 Rhinovirus B34.8 MARILEE (acute kidney injury) N17.9 Atrial fibrillation with rapid ventricular response I48.91 Elevated troponin R79.89 SARAH (obstructive sleep apnea) G47.33 Hypothyroidism E03.9 Morbid obesity with BMI of 40.0-44.9, adult E66.01; Z68.41 Thrombocytopenia D69.6 Renal cell carcinoma C64.9 S/P TAVR (transcatheter aortic valve replacement) Z95.2 Prediabetes R73.03 Blood per rectum K62.5
[2024-05-22 06:27] LABS: Anisocytosis Present; Basophils # (auto) 0.02 K/uL (0.00-0.20); Basophils % (auto) 0.3 %; Hemoglobin 8.7 g/dl (14.0-18.0); Immature Granulocytes # (auto) 0.42 K/uL (0.01-0.20); Immature Granulocytes % (auto) 6.2 %; Lymphocytes # (auto) 0.65 K/uL (1.20-3.40); Lymphocytes % (auto) 9.5 %; Mean Corpuscular Hemoglobin 27.3 pg (25.0-34.0); Monocytes # (auto) 0.35 K/uL (0.11-0.59); Monocytes % (auto) 5.1 %; Neutrophils # (auto) 5.37 K/uL (1.40-6.50); Neutrophils % (auto) 78.9 %; Nucleated RBC # (auto) 1.25 K/uL (0.00-0.12); Nucleated RBC % (auto) 18.4 %; Platelet Count 38 K/uL (130-400); Platelet Estimate Decreased (Normal); Polychromasia 2+; RDW Coefficient of Variation 30.4 % (11.5-14.5); RDW Standard Deviation 99.6 fL (36.4-46.3); Red Blood Count 3.19 M/uL (4.70-6.10); Tear Drop Cells 1+; White Blood Count 6.81 K/ul (4.8-10.8)
--- NOTE | 2024-05-22 08:14 | Ultrasound Report ---
EXAM: US arterial duplex LE LT CLINICAL HISTORY: Cold L foot, decreased pulses/cap refill TECHNIQUE: Ultrasound examination of the left lower extremity arteries was performed in real time and duplex. One or more of the following were performed- spectral analysis, resistive index, waveform analysis, and pulsed Doppler. COMPARISON: None. FINDINGS: Vessel Flow Pattern Left Peak Velocity Left (cm/sec) Common Femoral Artery ([employer]ER) Tri 42 Deep Femoral Artery (DPA) MONO-BI 35 Superficial Femoral Artery (SFA) TRI 40-48 Popliteal Artery (POP A) Bi-marichuy 18 Posterior Tibial Artery (ROAD FREIGHT FIRER), proximal Bi-mono 21 PERONEAL ARTERY [place] 18 Dorsalis Pedis Artery (DPA) [place] 11.5 Multiple discrete calcific plaques were noted in the arteries. Damped monophasic waveform in the distal arteries. IMPRESSION: Multiple discrete calcific plaques were noted in the arteries and damped monophasic waveform in the distal arteries. Electronically signed by Scott Venegas 05-22-2024 08:13 AM
--- NOTE | 2024-05-22 08:44 | Nephrology Progress Note ---
Date of Service May 22, 2024 Assessment & Plan (1) End stage renal disease on dialysis: Plan: * Patient was last dialyzed 05/21/24 for 3L UF * Volume status improved. Electrolyte balance is acceptable. No acute indication for HD today * Continue dietary sodium restriction. Maintain daily 1.5 L fluid limit. * Monitor BMP, I&O, wt (2) Anemia: Plan: * Venofer and Epogen provided 05/14 * Awaiting bone marrow biopsy 05/24/24 for evaluation of anemia/thrombocytopenia (3) Atrial fibrillation: Plan: * AV maggie ablation and pacemaker placement on 05/13/2024. * Anticoagulated with Eliquis. (4) Weakness: Plan: * Continue PT * Transfer to [facility] for ongoing PT once bed available (5) Renal cell carcinoma: Admission and Anticipated Discharge Date Admission Date: April 28, 2024 Subjective Mr. Guadalupe was evaluated in his hospital room this morning. He remains very weak states that he is slowly making progress with physical therapy. He is able to sit on the edge of the bed with two-person assistance. Mr. Guadalupe currently denies fever, dyspnea. He was last dialyzed yesterday without complication. Review of Systems Constitutional: no fever Eyes: no problem reported Ear, Nose, Mouth, Throat: no problem reported Respiratory: no dyspnea Cardiovascular: no chest pain Gastrointestinal: no abdominal pain, no nausea, no vomiting and no diarrhea/loose stools Integumentary: no rash Physical Exam Constitutional: not in distress Eyes: PERRL, conjunctivae normal, anicteric sclerae ENMT: external ear and nose normal, oropharynx normal Neck: trachea midline, no thyromegaly (IJ TCC w/ clean dry dressing) Respiratory: Auscultation: lungs clear to auscultation bilaterally Cardiovascular: RRR, no murmur, no edema Rate/Rhythm: + tachycardic and + irregularly irregular Extremities: + edema (1+ peripheral edema) Gastrointestinal (Abdomen): normal bowel sounds, soft, nontender, no hepatosplenomegaly Musculoskeletal: Extremities: no cyanosis Skin: no rashes, warm and dry Neurologic: awake; not confused Speech / Cognition: normal speech and normal cognition Results & Data Vital Signs (Past 12 Hours) Vital Signs Temp Pulse Resp BP Pulse Ox O2 Del Method O2 Flow Rate 05/22/24 07:39 36.6 C 105 H 16 143/96 H 97 Nasal Cannula 2 05/21/24 21:00 Nasal Cannula, CPAP 3 Laboratory Results Laboratory Results - last 24 hr 05/21/24 05/21/24 05/21/24 13:55 16:45 20:31 WBC RBC Hgb Hct MCV MCH MCHC RDW Std Deviation RDW Coeff of Nick Plt Count Immature Gran % (Auto) Neut % (Auto) Lymph % (Auto) [place] % (Auto) Eos % (Auto) Baso % (Auto) Neut # (Auto) Lymph # (Auto) [place] # (Auto) Eos # (Auto) Baso # (Auto) Immature Gran # (Auto) Absolute Nucleated RBC Nucleated RBC % (auto) Platelet Estimate Polychromasia Anisocytosis Tear Drop Cells Sodium Potassium Chloride Carbon Dioxide Anion Gap BUN Creatinine Est Cr Clr Drug Dosing eGFR BUN/Creatinine Ratio Glucose POC Glucose 120 H 128 H 129 H Calcium EBV Source EBV DNA, Quant EBV DNA (PCR) 05/22/24 05/22/24 05/22/24 05:26 05:34 07:33 WBC 6.81 RBC 3.19 L Hgb 8.7 L Hct 30.0 L MCV 94.0 MCH 27.3 MCHC 29.0 L RDW Std Deviation 99.6 H RDW Coeff of Nick 30.4 H Plt Count 38 L Immature Gran % (Auto) 6.2 Neut % (Auto) 78.9 Lymph % (Auto) 9.5 [place] % (Auto) 5.1 Eos % (Auto) 0.0 Baso % (Auto) 0.3 Neut # (Auto) 5.37 Lymph # (Auto) 0.65 L [place] # (Auto) 0.35 Eos # (Auto) 0.00 Baso # (Auto) 0.02 Immature Gran # (Auto) 0.42 H Absolute Nucleated RBC 1.25 H Nucleated RBC % (auto) 18.4 Platelet Estimate Decreased L Polychromasia 2+ Anisocytosis Present Tear Drop Cells 1+ Sodium 135 L Potassium 4.1 Chloride 100 Carbon Dioxide 27 Anion Gap 8 BUN 46 H D Creatinine 3.76 H D Est Cr Clr Drug Dosing 27.7 eGFR 16.52 BUN/Creatinine Ratio 12.2 Glucose 120 H POC Glucose 105 H Calcium 9.1 EBV Source Pending EBV DNA, Quant Pending EBV DNA (PCR) Pending PG Care Time/CCT Total # of Minutes Spent Total Time Spent with Patient: Total time spent is greater than 50% in coordination of care (as documented) at patient's floor/unit and/or counseling patient: Coding Level of Care Code 25877 SUB INP/OBS CARE 350MIN Diagnoses End stage renal disease on dialysis N18.6; Z99.2 Anemia D64.9 Atrial fibrillation I48.91 Atrial fibrillation type: unspecified Weakness R53.1 Renal cell carcinoma C64.9 (3) Atrial fibrillation Atrial fibrillation type: unspecified Qualified Code(s): I48.91 - Unspecified atrial fibrillation
[2024-05-22 09:35] LABS: BUN Creatinine Ratio 12.2 (10-20); Calcium 9.1 mg/dl (8.6-10.3); Creatinine Clr Calc Pharmacy 27.7 ml/min; Potassium 4.1 mmol/L (3.5-5.1)
--- NOTE | 2024-05-22 10:37 | Cardiology Progress Note ---
Date of Service May 22, 2024 Assessment & Plan (1) Atrial fibrillation with rapid ventricular response: (2) Cardiac pacemaker: Plan 1. Atrial fibrillation: He has permanent atrial fibrillation and is currently post recent AV maggie ablation. These procedures are not uniformly successful and evidently he has had recurrent AV conduction. Options are rate control with medications versus repeat ablation, we are not going to repeat the ablation this weekend therefore rate control with medications should be tried. If this is successful we could continue with this, if not successful (such as development of hypotension or lack of success) then we can plan repeat AV maggie ablation this coming week. 2. Pacemaker: There is no evidence that the pacemaker is not functioning properly although he is not on telemetry, on his recent interrogation the device was working well. The atrial fibrillation is overriding the pacemaker settings resulting in a fast heart rate. Admission and Anticipated Discharge Date Admission Date: April 28, 2024 Subjective Chart reviewed and patient examined. In brief this is a 68-year-old male who had a TAVR in the past for aortic stenosis and also has permanent atrial fibrillation who required cardioversion on several occasions however continued to have poorly controlled heart rates. He has other issues such as end-stage kidney disease and kidney cancer for which he has had chemotherapy. In order to control his heart rate (he struggles also with hypotension with rate control medications) he underwent AV maggie ablation on May 13, 2023 and then had a single-chamber pacemaker implanted that day. The pacemaker was programmed to pace at 90 bpm early after implantation and he was pacing continuously early after these procedures. His heart rate has been climbing however over the last several days He is currently on no rate control medications. His blood pressure is quite variable. At the time of my evaluation he was feeling quite well, he has no cardiovascular symptoms and no awareness of his heart rhythm. Physical Exam Physical Exam: Constitutional: Alert, cooperative and in no distress. He is resting in bed. HEENT: Unremarkable Neck: No jugular venous distention, carotid pulses are irregular but otherwise normal and equal bilaterally without bruits. Pulmonary: Clear to auscultation bilaterally. Cardiac: Slightly irregular rhythm with appropriate prosthetic valve sounds, no gallop or rub. Abdomen: Soft, nontender with normal bowel sounds. Extremities: No edema. Distal pulses intact. Neurologic: No focal findings. Skin: No rash, multiple ecchymoses on his arms. His pacemaker site on the left is well-healed without erythema, swelling or tenderness. He has a dialysis catheter on the right. Results & Data Vital Signs (Past 12 Hours) Vital Signs Temp Pulse Resp BP Pulse Ox O2 Del Method O2 Flow Rate 05/22/24 07:39 36.6 C 105 H 16 143/96 H 97 Nasal Cannula 2 Laboratory Results CBC 05/22/24 Range/Units 05:26 WBC 6.81 (4.8-10.8) K/ul RBC 3.19 L (4.70-6.10) M/uL Hgb 8.7 L (14.0-18.0) g/dl Hct 30.0 L (42.0-52.0) % Plt Count 38 L (130-400) K/uL Neut # (Auto) 5.37 (1.40-6.50) K/uL Lymph # (Auto) 0.65 L (1.20-3.40) K/uL [place] # (Auto) 0.35 (0.11-0.59) K/uL Eos # (Auto) 0.00 (0.00-0.50) K/uL Baso # (Auto) 0.02 (0.00-0.20) K/uL Comprehensive Metabolic Panel 05/22/24 Range/Units 05:34 Sodium 135 L (136-145) mmol/L Potassium 4.1 (3.5-5.1) mmol/L Chloride 100 (98-107) mmol/L Carbon Dioxide 27 (21-32) mmol/L BUN 46 H D (6-23) mg/dl Creatinine 3.76 H D (0.6-1.4) mg/dl Glucose 120 H (70-99(Fasting)) mg/dl Calcium 9.1 (8.6-10.3) mg/dl Intake and Output 05/21/24 05/22/24 05/22/24 22:59 06:59 14:59 Intake Total 250 / 350 240 / 240 Output Total 100 / 100 Balance 150 / 250 240 / 240 Intake: Oral 250 / 350 240 / 240 Output: Urine 100 / 100 PG Care Time/CCT Total # of Minutes Spent Total Time Spent with Patient: Total time spent is greater than 50% in coordination of care (as documented) at patient's floor/unit and/or counseling patient: Coding Level of Care Code 41179 SUB INP/OBS CARE 2/35MIN Diagnoses Atrial fibrillation with rapid ventricular response I48.91 Cardiac pacemaker Z95.0
--- NOTE | 2024-05-22 11:53 | Hospitalist Progress Note ---
Date of Service May 22, 2024 Assessment & Plan (1) Atrial fibrillation with rapid ventricular response: Plan: chronic, long-standing permanent a.fib followed by outside cardiology near [place] early in admission had had poor rate control despite meto succ BID + cardizem CD 120mg HS on chronic Eliquis 2.5mg BID for anticoagulation was poor candidate for amiodarone due to abnormal LFTs & autoimmune hepatitis hypotension precluded us from using higher doses of AV maggie agents cardioversion not successful in the past Dr Mitchell ultimately performed AV node ablation with permanent pacemaker insertion on 05/13/24 tolerated such needed platelets for the procedure he had been pacing [id number] (pacer dependent due to AV node ablation) HOWEVER, starting ~05/21/24, he became tachycardic yesterday was clinically in a.fib once again this AM his EKG is c/w a.fib/pacing asked Dr Kyle to see him today options - adding beta anish and/or repeating AV maggie ablation Eliquis on hold for possible bone marrow bx on Friday heparin drip low-dose to start tonight as bridge (high risk of VTE; high risk of developing thrombus) (2) Thrombocytopenia: Plan: 30s to 70s range while here without bleeding peak platelet count was 90s in March 2024 s/p platelet transfusion on 05/13/24 for pacemaker insertion B12/folate levels wnl formal peripheral smear --> nothing to suggest TTP/HUS; no evidence of DIC; nothing on smear to point to specific etiology 2nd to Opdivo? 2nd to liver dysfunction? 2nd to possible EBV infection? other primary bone marrow d/o?? combination of factors? if he does have [place]/EBV that could be contributing sent EBV PCR today Plan - cont to HOLD ELIQUIS Bone marrow biopsy - likely Friday05/24/24 with IR CMV, parvovirus titers pending interestingly his platelets improved today will see what the trend is tomorrow if they cont to trend up defer on biopsy?? (3) End stage renal disease on dialysis: Plan: 68yo male - recent initiation of dialysis (M/W/F) for development of ESRD 03/2024, solitary kidney status (previous right nephrectomy for renal cell ca), A-fib, stage 4 renal cell cancer previously on Opdivo, HTN, hypercholesterolemia, hypothyroidism, and SARAH. Presented 04/28/24 with b/l leg weakness. BioFire positive for entero- /rhinovirus. CXR with pulmonary edema and new bilateral basilar infiltrates with small pleural effusions. Had had 9 serial HD sessions due to severe volume overload earlier in the admission. Last week required 4 sessions. This week was maintained on M/W/F HD schedule with stable pulmonary status. Appreciate [facility] Nephrology assistance for HD needs. Volume status MARKEDLY improved since admission. Suspect that some of his LE edema is chronic lymphedema (pt/ state he has had edema "for years"). Continue midodrine to prevent intra-HD hypotension. (4) Acute hypoxic respiratory failure: Plan: stable on NC O2 multifactorial - pulmonary edema from ESRD status (and potentially liver dysfunction & cardiac issues), rhinovirus infection, +/- pneumonia rhinovirus & pneumonia resolved continue HD for volume control stable on NC O2 during the day CPAP with sleep suspect he has small residual pleural effusions based on past imaging and exam findings (5) Weakness: Plan: mainly proximal muscle weakness of hips - IMPROVING albeit very slowly severe deconditioning as well could have had a steroid myopathy lumbar spine issue cannot be ruled out but less likely (no paresthesias or radicular pain) checked B1 level - wnl checked CPK - wnl B12 level - 605 does patient have acute mono or subacute mono?? 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 2nd to hepatic congestion from volume overload? combination of factors? EBV IgM returned POSITIVE -- does patient have acute or subacute [place]? if yes this could be contributing to hepatitis & low platelets sent EBV PCR today CMV & parvovirus titers pending HepA, HepB, and HepC ab's were NEGATIVE in 06/2023 LFTs remain mildly high despite steroids including 05/19's LFTs ammonia level wnl continue PJP prophy until prednisone is <20mg/day; use SS tmp/sulfa 1 tab M/W/F at HS for prophylaxis K levels wnl obtained formal GI consult to ensure nothing else is causing the liver dysfunction - they agree that it is likely due to immunotherapy/autoimmune +/- right heart failure/passive congestion (7) Pneumonia: Plan: b/l basilar -- clinically resolved could have been viral pneumonia 2nd to rhinovirus could have been bacterial superinfection completed 7+ days if IV/PO abx cont TMP/sulfa for PJP prophylaxis (8) Rhinovirus: Plan: earlier this admission resolved (9) MARILEE (acute kidney injury): Plan: 03/2024 - with ultimate need for HD see above in #1 (10) Elevated troponin: Plan: peak HS trop 103 early in the admission no evidence of ACS likely myocardial demand ischemia in setting of volume overload from #1, rapid a.fib, rhinovirus infection, ?pneumonia, etc. (11) SARAH (obstructive sleep apnea): Plan: cont home CPAP (12) Hypothyroidism: Plan: TSH 03/2024 wnl cont synthroid (13) Morbid obesity with BMI of 40.0-44.9, adult: Plan: BMI 38 (14) Renal cell carcinoma: Plan: stage 4 h/o right nephrectomy due to RCC follows with Dr Grijalva - cancer care clinic remaining left kidney has cysts vs masses on last imaging study - this bears watching (15) S/P TAVR (transcatheter aortic valve replacement): Plan: last echo with normal valve function (04/17) (16) Prediabetes: Plan: Hba1c 6.1% in Mar 2024 controlled with novolog SSI (17) Blood per rectum: Plan: resolved 2nd small hemorrhoids? (vs fissure I could not see?) either way it is anal outlet -- doubt diverticulosis started anusol suppos BID on 05/19 cont total 7 days h/h stable (18) PAD (peripheral artery disease): Plan: biphasic waveforms on LLE proximal vessels monophasic waveforms on distal vessels this bears very close watching ideally should be on antiplatelet agents and statin but both contraindicated right now due to abnormal LFTs and low platelets Plan VTE prophylaxis - cont to hold Eliquis 2.5mg BID start heparin bridge low-dose later today cont PT/OT updated at bedside once again dispo - [facility] - timing very uncertain care d/w Dr Kyle - cardiology Admission and Anticipated Discharge Date Admission Date: April 28, 2024 Subjective no events overnight feels decent today eating well no dyspnea no new complaints we discussed his LLE arterial duplex study results discussed that he is in a.fib once again and that I have asked cardiology to re- eval him at bedside & updated Review of Systems Review of Systems: gen - no fevers or chills cv - no chest pain; no orthopnea pulm - no dyspnea GI - no blood per rectum Physical Exam Physical Exam: gen - morbidly obese, NAD, lying comfortably in bed; looks similar to prior exams mouth - MMM, no thrush neck - no JVD heart - irregularly irregular, tachy, s1 s2, 1/6 systolic murmur LSB lungs - mildly decreased BS bases, otherwise CTA b/l; no rales; no wheezes abd - soft NT ND BS+; reducible chioma-umbilical hernia unchanged ext - 2+ pitting edema feet; 1+ pitting edema of shins; pulses b/l feet 2+; left foot remains cold - similar to prior exams; right foot is mildly warm; cap refill left foot despite the cold foot is 2 seconds, right foot 1-2 sec cap refill; several toes are dusky in appearance/venous pooling type appearance left foot - worst is 4th/5th toes - but unchanged from all prior exams psych - a/o x 3 skin - numerous optifoams b/l arms; pacemaker site left upper chest covered with steri strips; ecchymoses and petechiae present left upper chest; no hematoma present Results & Data Results & Data Vital Signs (Past 12 Hours) Vital Signs Temp Pulse Resp BP Pulse Ox O2 Del Method O2 Flow Rate 05/22/24 07:39 36.6 C 105 H 16 143/96 H 97 Nasal Cannula 2 Laboratory Results Laboratory Results - last 48 hr 05/21/24 05/21/24 05/21/24 05:37 07:47 13:55 WBC 7.02 RBC 3.05 L Hgb 8.4 L Hct 28.5 L MCV 93.4 MCH 27.5 MCHC 29.5 L RDW Std Deviation 97.0 H RDW Coeff of Nick 29.6 H Plt Count 34 L Immature Gran % (Auto) Neut % (Auto) Lymph % (Auto) [place] % (Auto) Eos % (Auto) Baso % (Auto) Neut # (Auto) Lymph # (Auto) [place] # (Auto) Eos # (Auto) Baso # (Auto) Immature Gran # (Auto) Absolute Nucleated RBC 0.63 H Nucleated RBC % (auto) 9.0 Platelet Estimate Polychromasia Anisocytosis Tear Drop Cells PT INR APTT PTT Ratio Heparin Anti-Xa, Unfract Sodium 136 Potassium 4.4 Chloride 98 Carbon Dioxide 25 Anion Gap 13 H BUN 70 H Creatinine 4.87 H* D Est Cr Clr Drug Dosing 21.4 eGFR 12.11 BUN/Creatinine Ratio 14.4 Glucose 104 H POC Glucose 111 H 120 H Calcium 9.3 Phosphorus 6.8 H Iron TIBC Transferrin Transferrin % Sat Ferritin Albumin 2.9 L EBV Capsid Ag IgG Ab Positive EBV Caps Ag IgG Sig Str > 750.0 EBV Capsid Ag IgM Ab Positive EBV Caps Ag IgM Sig Str 50.7 EBV Nuclear Antigen Ab Positive EBV Nucl Ag IgG Sig Str > 600.0 EBV Interpretation See Comment 05/21/24 05/21/24 05/22/24 16:45 20:31 05:26 WBC 6.81 RBC 3.19 L Hgb 8.7 L Hct 30.0 L MCV 94.0 MCH 27.3 MCHC 29.0 L RDW Std Deviation 99.6 H RDW Coeff of Nick 30.4 H Plt Count 38 L Immature Gran % (Auto) 6.2 Neut % (Auto) 78.9 Lymph % (Auto) 9.5 [place] % (Auto) 5.1 Eos % (Auto) 0.0 Baso % (Auto) 0.3 Neut # (Auto) 5.37 Lymph # (Auto) 0.65 L [place] # (Auto) 0.35 Eos # (Auto) 0.00 Baso # (Auto) 0.02 Immature Gran # (Auto) 0.42 H Absolute Nucleated RBC 1.25 H Nucleated RBC % (auto) 18.4 Platelet Estimate Decreased L Polychromasia 2+ Anisocytosis Present Tear Drop Cells 1+ PT INR APTT PTT Ratio Heparin Anti-Xa, Unfract Sodium Potassium Chloride Carbon Dioxide Anion Gap BUN Creatinine Est Cr Clr Drug Dosing eGFR BUN/Creatinine Ratio Glucose POC Glucose 128 H 129 H Calcium Phosphorus Iron TIBC Transferrin Transferrin % Sat Ferritin Albumin EBV Capsid Ag IgG Ab EBV Caps Ag IgG Sig Str EBV Capsid Ag IgM Ab EBV Caps Ag IgM Sig Str EBV Nuclear Antigen Ab EBV Nucl Ag IgG Sig Str EBV Interpretation 05/22/24 05/22/24 05/22/24 05:34 07:33 11:38 WBC RBC Hgb Hct MCV MCH MCHC RDW Std Deviation RDW Coeff of Nick Plt Count Immature Gran % (Auto) Neut % (Auto) Lymph % (Auto) [place] % (Auto) Eos % (Auto) Baso % (Auto) Neut # (Auto) Lymph # (Auto) [place] # (Auto) Eos # (Auto) Baso # (Auto) Immature Gran # (Auto) Absolute Nucleated RBC Nucleated RBC % (auto) Platelet Estimate Polychromasia Anisocytosis Tear Drop Cells PT INR APTT PTT Ratio Heparin Anti-Xa, Unfract Sodium 135 L Potassium 4.1 Chloride 100 Carbon Dioxide 27 Anion Gap 8 BUN 46 H D Creatinine 3.76 H D Est Cr Clr Drug Dosing 27.7 eGFR 16.52 BUN/Creatinine Ratio 12.2 Glucose 120 H POC Glucose 105 H 112 H Calcium 9.1 Phosphorus Iron TIBC Transferrin Transferrin % Sat Ferritin Albumin EBV Capsid Ag IgG Ab EBV Caps Ag IgG Sig Str EBV Capsid Ag IgM Ab EBV Caps Ag IgM Sig Str EBV Nuclear Antigen Ab EBV Nucl Ag IgG Sig Str EBV Interpretation PG Care Time/CCT Total # of Minutes Spent Total Time Spent with Patient: Total time spent is greater than 50% in coordination of care (as documented) at patient's floor/unit and/or counseling patient: Coding Level of Care Code 67030 SUB INP/OBS CARE 3/50MIN Diagnoses Atrial fibrillation with rapid ventricular response I48.91 Thrombocytopenia D69.6 End stage renal disease on dialysis N18.6; Z99.2 Acute hypoxic respiratory failure J96.01 Weakness R53.1 Autoimmune hepatitis treated with steroids K75.4 Pneumonia J18.9 Rhinovirus B34.8 MARILEE (acute kidney injury) N17.9 Elevated troponin R79.89 SARAH (obstructive sleep apnea) G47.33 Hypothyroidism E03.9 Morbid obesity with BMI of 40.0-44.9, adult E66.01; Z68.41 Renal cell carcinoma C64.9 S/P TAVR (transcatheter aortic valve replacement) Z95.2 Prediabetes R73.03 Blood per rectum K62.5 PAD (peripheral artery disease) I73.9
[2024-05-22] MEDS: METOPROLOL TARTRATE 25 MG TAB PO STA (12:24)
[2024-05-22] MEDS: METOPROLOL TARTRATE 50 MG TAB PO SCH (20:21)
[2024-05-22 20:53] LABS: INR 1.1 (0.9-1.1); Partial Thromboplastin Time 27 Seconds (21-31); Prothrombin Time 11.5 Seconds (9.0-12.0)
[2024-05-22 20:54] LABS: Hematocrit (blood only) 27.9 % (42.0-52.0); Hemoglobin 8.2 g/dl (14.0-18.0); Mean Corpuscular Hemoglobin 27.6 pg (25.0-34.0); Mean Corpuscular Hgb Conc 29.4 g/dL (32.0-36.0); Mean Corpuscular Volume 93.9 fL (80.0-100.0); Nucleated RBC # (auto) 0.86 K/uL (0.00-0.12); Nucleated RBC % (auto) 12.3 %; Platelet Count 40 K/uL (130-400); RDW Coefficient of Variation 30.5 % (11.5-14.5); RDW Standard Deviation 99.7 fL (36.4-46.3); Red Blood Count 2.97 M/uL (4.70-6.10); White Blood Count 7.01 K/ul (4.8-10.8)
[2024-05-22 20:55] LABS: Anisocytosis Present; Basophils # (auto) 0.02 K/uL (0.00-0.20); Basophils % (auto) 0.3 %; Immature Granulocytes # (auto) 0.35 K/uL (0.01-0.20); Lymphocytes # (auto) 0.57 K/uL (1.20-3.40); Lymphocytes % (auto) 8.1 %; Monocytes % (auto) 4.3 %; Neutrophils # (auto) 5.77 K/uL (1.40-6.50); Neutrophils % (auto) 82.3 %; Polychromasia 1+; Tear Drop Cells 1+
[2024-05-22] MEDS: HEPARIN 25000 UNIT/500 ML D5W 25,000 UNITS/500 ML BAG IV SCH (21:24)
[2024-05-22] MEDS: Heparin IV Adult Wt-Based Low-Dose *NO* INITIAL Bolus Protocol IV STA (21:26)
[2024-05-23 04:56] LABS: ANTI-Xa, UFH(UnfractionatedHep 0.48 IU/ml (0.3-0.7)
[2024-05-23 05:25] LABS: BUN Creatinine Ratio 13.5 (10-20); Calcium 9.3 mg/dl (8.6-10.3); Ferritin 525.2 ng/ml (8-388)
[2024-05-23 05:29] LABS: Hematocrit (blood only) 28.7 % (42.0-52.0); Hemoglobin 8.1 g/dl (14.0-18.0); Mean Corpuscular Hemoglobin 27.2 pg (25.0-34.0); Mean Corpuscular Hgb Conc 28.2 g/dL (32.0-36.0); Mean Corpuscular Volume 96.3 fL (80.0-100.0); Nucleated RBC # (auto) 0.81 K/uL (0.00-0.12); Nucleated RBC % (auto) 11.9 %; Platelet Count 43 K/uL (130-400); RDW Coefficient of Variation 30.5 % (11.5-14.5); RDW Standard Deviation 103.4 fL (36.4-46.3); Red Blood Count 2.98 M/uL (4.70-6.10)
--- NOTE | 2024-05-23 09:18 | Nephrology Progress Note ---
Date of Service May 23, 2024 Assessment & Plan (1) End stage renal disease on dialysis: Plan: * Patient was last dialyzed 05/21/24 for 3L UF * Volume status improved. Electrolyte balance is acceptable. No acute indication for HD today * Will plan next HD for 05/24/24 * Continue dietary sodium restriction. Maintain daily 1.5 L fluid limit. * Monitor BMP, I&O, wt (2) Anemia: Plan: * Will provide IV Venofer and SCOTT w/ next HD * Awaiting bone marrow biopsy 05/24/24 for evaluation of anemia/thrombocytopenia (3) Atrial fibrillation: Plan: * AV maggie ablation and pacemaker placement on 05/13/2024. * Anticoagulated with Eliquis. (4) Weakness: Plan: * Continue PT * Transfer to [facility] for ongoing PT once bed available (5) Renal cell carcinoma: Admission and Anticipated Discharge Date Admission Date: April 28, 2024 Subjective Mr. Guadalupe was evaluated in his hospital room this morning. He remains very weak states that he is slowly making progress with physical therapy. He is able to sit in a chair yesterday using a Juliette lift. Mr. Guadalupe currently denies fever, dyspnea Review of Systems Constitutional: no fever Eyes: no problem reported Ear, Nose, Mouth, Throat: no problem reported Respiratory: no dyspnea Cardiovascular: no chest pain Gastrointestinal: no abdominal pain, no nausea, no vomiting and no diarrhea/loose stools Integumentary: no rash Physical Exam Constitutional: not in distress Eyes: PERRL, conjunctivae normal, anicteric sclerae ENMT: external ear and nose normal, oropharynx normal Neck: trachea midline, no thyromegaly (IJ TCC w/ clean dry dressing) Respiratory: normal respiratory effort (Diminished breath sounds right base) Auscultation: lungs clear to auscultation bilaterally and + rales (bilaterally) Cardiovascular: RRR, no murmur, no edema Rate/Rhythm: + tachycardic and + irregularly irregular Extremities: + edema (2+ peripheral edema) Gastrointestinal (Abdomen): normal bowel sounds, soft, nontender, no hepatosplenomegaly Musculoskeletal: Extremities: no cyanosis Skin: no rashes, warm and dry Neurologic: awake; not confused Speech / Cognition: normal speech and normal cognition Results & Data Vital Signs (Past 12 Hours) Vital Signs Temp Pulse Pulse Resp BP Pulse Ox O2 Del Method 05/23/24 07:46 36.8 C 86 88 18 103/73 99 Nasal Cannula 05/22/24 23:00 Nasal Cannula, CPAP O2 Flow Rate 05/23/24 07:46 3 05/22/24 23:00 3 Laboratory Results Laboratory Results - last 24 hr 05/22/24 05/22/24 05/22/24 05:34 11:38 16:34 WBC RBC Hgb Hct MCV MCH MCHC RDW Std Deviation RDW Coeff of Nick Plt Count Immature Gran % (Auto) Neut % (Auto) Lymph % (Auto) [place] % (Auto) Eos % (Auto) Baso % (Auto) Neut # (Auto) Lymph # (Auto) [place] # (Auto) Eos # (Auto) Baso # (Auto) Immature Gran # (Auto) Absolute Nucleated RBC Nucleated RBC % (auto) Polychromasia Anisocytosis Tear Drop Cells PT INR APTT PTT Ratio Heparin Anti-Xa, Unfract Sodium 135 L Potassium 4.1 Chloride 100 Carbon Dioxide 27 Anion Gap 8 BUN 46 H D Creatinine 3.76 H D Est Cr Clr Drug Dosing 27.7 eGFR 16.52 BUN/Creatinine Ratio 12.2 Glucose 120 H POC Glucose 112 H 130 H Calcium 9.1 Iron TIBC Transferrin Transferrin % Sat Ferritin 05/22/24 05/22/24 05/23/24 20:09 20:27 03:58 WBC 7.01 6.80 RBC 2.97 L 2.98 L Hgb 8.2 L 8.1 L Hct 27.9 L 28.7 L MCV 93.9 96.3 MCH 27.6 27.2 MCHC 29.4 L 28.2 L RDW Std Deviation 99.7 H 103.4 H RDW Coeff of Nick 30.5 H 30.5 H Plt Count 40 L 43 L Immature Gran % (Auto) 5.0 Neut % (Auto) 82.3 Lymph % (Auto) 8.1 [place] % (Auto) 4.3 Eos % (Auto) 0.0 Baso % (Auto) 0.3 Neut # (Auto) 5.77 Lymph # (Auto) 0.57 L [place] # (Auto) 0.30 Eos # (Auto) 0.00 Baso # (Auto) 0.02 Immature Gran # (Auto) 0.35 H Absolute Nucleated RBC 0.86 H 0.81 H Nucleated RBC % (auto) 12.3 11.9 Polychromasia 1+ Anisocytosis Present Tear Drop Cells 1+ PT 11.5 INR 1.1 APTT 27 PTT Ratio 1.0 Heparin Anti-Xa, Unfract 0.48 Sodium 134 L Potassium 4.0 Chloride 99 Carbon Dioxide 26 Anion Gap 9 BUN 64 H Creatinine 4.74 H* D Est Cr Clr Drug Dosing 22.0 eGFR 12.51 BUN/Creatinine Ratio 13.5 Glucose 124 H POC Glucose 144 H Calcium 9.3 Iron 36 TIBC 353 Transferrin 252 Transferrin % Sat 10 L Ferritin 525.2 H 05/23/24 07:28 WBC RBC Hgb Hct MCV MCH MCHC RDW Std Deviation RDW Coeff of Nick Plt Count Immature Gran % (Auto) Neut % (Auto) Lymph % (Auto) [place] % (Auto) Eos % (Auto) Baso % (Auto) Neut # (Auto) Lymph # (Auto) [place] # (Auto) Eos # (Auto) Baso # (Auto) Immature Gran # (Auto) Absolute Nucleated RBC Nucleated RBC % (auto) Polychromasia Anisocytosis Tear Drop Cells PT INR APTT PTT Ratio Heparin Anti-Xa, Unfract Sodium Potassium Chloride Carbon Dioxide Anion Gap BUN Creatinine Est Cr Clr Drug Dosing eGFR BUN/Creatinine Ratio Glucose POC Glucose 129 H Calcium Iron TIBC Transferrin Transferrin % Sat Ferritin PG Care Time/CCT Total # of Minutes Spent Total Time Spent with Patient: Total time spent is greater than 50% in coordination of care (as documented) at patient's floor/unit and/or counseling patient: Coding Level of Care Code 06938 SUB INP/OBS CARE 3/50MIN Diagnoses End stage renal disease on dialysis N18.6; Z99.2 Anemia D64.9 Atrial fibrillation I48.91 Atrial fibrillation type: unspecified Weakness R53.1 Renal cell carcinoma C64.9 (3) Atrial fibrillation Atrial fibrillation type: unspecified Qualified Code(s): I48.91 - Unspecified atrial fibrillation
--- NOTE | 2024-05-23 10:59 | Cardiology Progress Note ---
Date of Service May 23, 2024 Assessment & Plan (1) Atrial fibrillation with rapid ventricular response: (2) Cardiac pacemaker: Plan 1. Atrial fibrillation: He has permanent atrial fibrillation and is currently post recent AV maggie ablation. These procedures are not uniformly successful and evidently he has had recurrent AV conduction. Options are rate control with medications versus repeat ablation, we are not going to repeat the ablation this weekend therefore I tried rate control with metoprolol 100 mg daily in divided doses. This has not made much difference in his rate and at noon today his heart rate based on his pulse was 122 bpm. We should plan repeat AV maggie ablation this coming week. 2. Pacemaker: There is no evidence that the pacemaker is not functioning properly although he is not on telemetry, on his recent interrogation the device was working well. The atrial fibrillation is overriding the pacemaker settings resulting in a fast heart rate. This is appropriate as far as the pacer goes. Admission and Anticipated Discharge Date Admission Date: April 28, 2024 Subjective He is feeling well today, he remains at bedrest but does not have a sensation of an increased heart rate and does not have other cardiovascular symptoms. Physical Exam Physical Exam: Constitutional: Alert, cooperative and in no distress. He is resting in bed. HEENT: Unremarkable Neck: No jugular venous distention, carotid pulses are irregular but otherwise normal and equal bilaterally without bruits. Pulmonary: Clear to auscultation bilaterally. Cardiac: Slightly irregular rhythm with appropriate prosthetic valve sounds, no gallop or rub. Abdomen: Soft, nontender with normal bowel sounds. Extremities: No edema. Distal pulses intact. Neurologic: No focal findings. Skin: No rash, multiple ecchymoses on his arms. His pacemaker site on the left is well-healed without erythema, swelling or tenderness. He has a dialysis catheter on the right. Results & Data Vital Signs (Past 12 Hours) Vital Signs Temp Pulse Pulse Resp BP Pulse Ox O2 Del Method 05/23/24 07:46 36.8 C 86 88 18 103/73 99 Nasal Cannula 05/22/24 23:00 Nasal Cannula, CPAP O2 Flow Rate 05/23/24 07:46 3 05/22/24 23:00 3 Laboratory Results Coagulation 05/22/24 Range/Units 20:09 PT 11.5 (9.0-12.0) Seconds APTT 27 (21-31) Seconds CBC 05/22/24 05/23/24 Range/Units 20:09 03:58 WBC 7.01 6.80 (4.8-10.8) K/ul RBC 2.97 L 2.98 L (4.70-6.10) M/uL Hgb 8.2 L 8.1 L (14.0-18.0) g/dl Hct 27.9 L 28.7 L (42.0-52.0) % Plt Count 40 L 43 L (130-400) K/uL Neut # (Auto) 5.77 (1.40-6.50) K/uL Lymph # (Auto) 0.57 L (1.20-3.40) K/uL [place] # (Auto) 0.30 (0.11-0.59) K/uL Eos # (Auto) 0.00 (0.00-0.50) K/uL Baso # (Auto) 0.02 (0.00-0.20) K/uL Comprehensive Metabolic Panel 05/23/24 Range/Units 03:58 Sodium 134 L (136-145) mmol/L Potassium 4.0 (3.5-5.1) mmol/L Chloride 99 (98-107) mmol/L Carbon Dioxide 26 (21-32) mmol/L BUN 64 H (6-23) mg/dl Creatinine 4.74 H* D (0.6-1.4) mg/dl Glucose 124 H (70-99(Fasting)) mg/dl Calcium 9.3 (8.6-10.3) mg/dl Intake and Output 05/22/24 05/23/24 05/23/24 22:59 06:59 14:59 Intake Total 180 / 950.666 290.666 / 950.666 240 / 240 Output Total Balance 180 / 950.666 290.666 / 950.666 239 / 239 Intake: IV 190.666 / 190.666 Heparin 93021 Unit/500 ml D5w 190.666 / 190.666 25,000 units In 500 ml @ 1,000 UNITS/HR 20 mls/hr IV .Q24H [facility] Rx#:[id number] Oral 180 / 760 100 / 760 240 / 240 Output: # Bowel Movements Diagnostic Findings A repeat electrocardiogram today shows frequent AV conduction at rest, probably half of the time with the pacer set at 90 he is conducting to the ventricle. PG Care Time/CCT Total # of Minutes Spent Total Time Spent with Patient: Total time spent is greater than 50% in coordination of care (as documented) at patient's floor/unit and/or counseling patient: Coding Level of Care Code 33742 SUB INP/OBS CARE 2/35MIN Diagnoses Atrial fibrillation with rapid ventricular response I48.91 Cardiac pacemaker Z95.0
--- NOTE | 2024-05-23 19:01 | Hospitalist Progress Note ---
Date of Service May 23, 2024 Assessment & Plan (1) Atrial fibrillation with rapid ventricular response: Plan: chronic, long-standing permanent a.fib followed by outside cardiology near [place] early in admission had had poor rate control despite meto succ BID + cardizem CD 120mg HS on chronic Eliquis 2.5mg BID for anticoagulation was poor candidate for amiodarone due to abnormal LFTs & autoimmune hepatitis hypotension precluded us from using higher doses of AV maggie agents cardioversion not successful in the past Dr Mitchell ultimately performed AV node ablation with permanent pacemaker insertion on 05/13/24 he had been pacing [id number] (pacer dependent due to AV node ablation) HOWEVER, starting ~05/21/24, he became tachycardic unfortunately he has converted back to rapid a.fib thus indicating AV node function Dr Kyle saw him yesterday and added metoprolol 50mg BID despite such rate control remains poor much like earlier in the stay Dr Kyle recommends repeating AV maggie ablation - perhaps Friday Eliquis on hold heparin drip low-dose remains (he is high risk of VTE & high risk of developing thrombus while off Eliquis) appreciate Dr Kyle (and Dr Mitchell's) assistance (2) Thrombocytopenia: Plan: IMPROVING finally 30s to 70s range while here without bleeding peak platelet count was 90s in March 2024 s/p platelet transfusion on 05/13/24 for pacemaker insertion B12/folate levels wnl formal peripheral smear --> nothing to suggest TTP/HUS; no evidence of DIC; nothing on smear to point to specific etiology 2nd to Opdivo? 2nd to liver dysfunction? 2nd to possible EBV infection? other primary bone marrow d/o?? combination of factors? if he does have [place]/EBV that could be contributing sent EBV PCR and pending cont to HOLD ELIQUIS Bone marrow biopsy - Friday05/24/24 with IR low-dose heparin drip until tomorrow; hold starting 5am CMV, parvovirus titers pending I corresponded with Dr Grijalva via [facility] text - even though platelets have modestly improved last 2-3 days still worthwhile to get bone marrow bx - r/o malignancy of the bone marrow thus proceed with bx as scheduled tomorrow AM (3) End stage renal disease on dialysis: Plan: 68yo male - recent initiation of dialysis (M/W/F) for development of ESRD 03/2024, solitary kidney status (previous right nephrectomy for renal cell ca), A-fib, stage 4 renal cell cancer previously on Opdivo, HTN, hypercholesterolemia, hypothyroidism, and SARAH. Presented 04/28/24 with b/l leg weakness. BioFire positive for entero- /rhinovirus. CXR with pulmonary edema and new bilateral basilar infiltrates with small pleural effusions. Had had 9 serial HD sessions due to severe volume overload earlier in the admi ssion. Last week required 4 sessions. This week was maintained on M/W/F HD schedule with stable pulmonary status. Appreciate [facility] Nephrology assistance for HD needs. Volume status MARKEDLY improved since admission. Suspect that some of his LE edema is chronic lymphedema (pt/ state he has had edema "for years"). Continue midodrine to prevent intra-HD hypotension. (4) Acute hypoxic respiratory failure: Plan: stable on NC O2 multifactorial - pulmonary edema from ESRD status (and potentially liver dysfunction & cardiac issues), rhinovirus infection, +/- pneumonia rhinovirus & pneumonia resolved continue HD for volume control stable on NC O2 during the day CPAP with sleep suspect he has small residual pleural effusions based on past imaging and exam findings (5) Weakness: Plan: IMPROVING especially his hip proximal muscles deconditioning is the main culprit more than likely although cannot rule out a steroid myopathy lumbar spine issue cannot be ruled out but less likely (no paresthesias or radicular pain of legs) checked B1 level - wnl checked CPK - wnl B12 level - 605 does patient have acute mono or subacute mono?? if yes this could be contributing to ongoing weakness cont PT/OT as tolerated needs intensive rehab post-discharge - he was walking at home prior to this hospitalization will have such at 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 2nd to hepatic congestion from volume overload? combination of factors? EBV IgM returned POSITIVE -- does patient have acute or subacute [place]? if yes this could be contributing to hepatitis & low platelets sent EBV PCR and pending CMV & parvovirus titers pending HepA, HepB, and HepC ab's were NEGATIVE in 06/2023 LFTs remain mildly high despite steroids including 05/19's LFTs ammonia level wnl continue PJP prophy until prednisone is <20mg/day; use SS tmp/sulfa 1 tab M/W/F at HS for prophylaxis K levels wnl obtained formal GI consult to ensure nothing else is causing the liver dysfunction - they agree that it is likely due to immunotherapy/autoimmune +/- right heart failure/passive congestion (7) Pneumonia: Plan: b/l basilar -- clinically resolved could have been viral pneumonia 2nd to rhinovirus could have been bacterial superinfection completed 7+ days if IV/PO abx cont TMP/sulfa for PJP prophylaxis (8) Rhinovirus: Plan: earlier this admission resolved (9) MARILEE (acute kidney injury): Plan: 03/2024 - with ultimate need for HD see above in #1 (10) Elevated troponin: Plan: peak HS trop 103 early in the admission no evidence of ACS likely myocardial demand ischemia in setting of volume overload from #1, rapid a.fib, rhinovirus infection, ?pneumonia, etc. (11) SARAH (obstructive sleep apnea): Plan: cont home CPAP (12) Hypothyroidism: Plan: TSH 03/2024 wnl cont synthroid (13) Morbid obesity with BMI of 40.0-44.9, adult: Plan: BMI 38 (14) Renal cell carcinoma: Plan: stage 4 h/o right nephrectomy due to RCC follows with Dr Grijalva - cancer care clinic remaining left kidney has cysts vs masses on last imaging study - this bears watching (15) S/P TAVR (transcatheter aortic valve replacement): Plan: last echo with normal valve function (04/17) (16) Prediabetes: Plan: Hba1c 6.1% in Mar 2024 controlled with novolog SSI (17) Blood per rectum: Plan: resolved 2nd small hemorrhoids? (vs fissure I could not see?) either way it is anal outlet -- doubt diverticulosis started anusol suppos BID on 05/19 cont total 7 days h/h stable (18) PAD (peripheral artery disease): Plan: biphasic waveforms on LLE proximal vessels monophasic waveforms on distal vessels toes have dusky appearance, foot is cool, and cap refill is delayed especially the 4th/5th toes ideally should be on antiplatelet agents and statin but both contraindicated right now due to abnormal LFTs and low platelets will ask Dr Tolentino from cards/vascular to see in consult this week Plan VTE prophylaxis - cont to hold Eliquis 2.5mg BID cont heparin bridge low-dose until about 500am tomorrow; then hold for bone marrow bx cont PT/OT updated at bedside once again today dispo - [facility] - timing very uncertain care d/w Dr Kyle - cardiology Admission and Anticipated Discharge Date Admission Date: April 28, 2024 Subjective no new events, symptoms, or complaints tired/weak as previous but eating/drinking well has a new room with large windows & excellent view - very satisfied with this was out to the chair yesterday for several hours saw patient 2x's today - 2nd visit late in the day and told him we would be proceeding with bone marrow bx despite platelets starting to slowly rise tentative plan for repeat av maggie ablation this week denies any pain in left foot Review of Systems Review of Systems: cv - no orthopnea, PND, or chest pain pulm - no dyspnea at rest GI - no abd pain or N/V; no further blood per rectum Physical Exam 2 Physical Exam: gen - morbidly obese, NAD, lying comfortably in bed mouth - MMM, no thrush neck - no JVD heart - still irregularly irregular, tachy, s1 s2, 1/6 systolic murmur LSB lungs - CTA b/l; no rales; no wheezes abd - soft NT ND BS+; reducible chioma-umbilical hernia unchanged ext - 2+ pitting edema feet; <1+ pitting edema of shins; pulses R foot 1-2+; left foot pulses 1+ at best; left popliteal pulse 1-2+; left foot remains cold - similar to prior exams; right foot is mildly warm; cap refill left foot despite the cold foot is 2 seconds for the 1st/2nd/3rd toes, but prolonged for the 4th/5th toes; right foot 1-2 sec cap refill; all toes L foot are mildly dusky in appearance - but unchanged from all prior exams psych - a/o x 3 skin - numerous optifoams b/l arms; pacemaker site left upper chest covered with steri strips; ecchymoses and petechiae present left upper chest; no hematoma present Results & Data Results & Data Vital Signs (Past 12 Hours) Vital Signs Temp Pulse Pulse Resp BP Pulse Ox O2 Del Method 05/23/24 15:03 36.4 C L 90 18 107/74 96 Nasal Cannula 05/23/24 13:08 99 H 93/65 L 05/23/24 11:52 36.5 C 122 H 106 H 20 100/67 100 Nasal Cannula 05/23/24 07:46 36.8 C 86 88 18 103/73 99 Nasal Cannula O2 Flow Rate 05/23/24 15:03 3 05/23/24 13:08 05/23/24 11:52 3 05/23/24 07:46 3 Laboratory Results Laboratory Results - last 24 hr 05/22/24 05/22/24 05/23/24 20:09 20:27 03:58 WBC 7.01 6.80 RBC 2.97 L 2.98 L Hgb 8.2 L 8.1 L Hct 27.9 L 28.7 L MCV 93.9 96.3 MCH 27.6 27.2 MCHC 29.4 L 28.2 L RDW Std Deviation 99.7 H 103.4 H RDW Coeff of Nick 30.5 H 30.5 H Plt Count 40 L 43 L Immature Gran % (Auto) 5.0 Neut % (Auto) 82.3 Lymph % (Auto) 8.1 [place] % (Auto) 4.3 Eos % (Auto) 0.0 Baso % (Auto) 0.3 Neut # (Auto) 5.77 Lymph # (Auto) 0.57 L [place] # (Auto) 0.30 Eos # (Auto) 0.00 Baso # (Auto) 0.02 Immature Gran # (Auto) 0.35 H Absolute Nucleated RBC 0.86 H 0.81 H Nucleated RBC % (auto) 12.3 11.9 Polychromasia 1+ Anisocytosis Present Tear Drop Cells 1+ PT 11.5 INR 1.1 APTT 27 PTT Ratio 1.0 Heparin Anti-Xa, Unfract 0.48 Sodium 134 L Potassium 4.0 Chloride 99 Carbon Dioxide 26 Anion Gap 9 BUN 64 H Creatinine 4.74 H* D Est Cr Clr Drug Dosing 22.0 eGFR 12.51 BUN/Creatinine Ratio 13.5 Glucose 124 H POC Glucose 144 H Calcium 9.3 Iron 36 TIBC 353 Transferrin 252 Transferrin % Sat 10 L Ferritin 525.2 H 05/23/24 05/23/24 05/23/24 07:28 11:37 16:35 WBC RBC Hgb Hct MCV MCH MCHC RDW Std Deviation RDW Coeff of Nick Plt Count Immature Gran % (Auto) Neut % (Auto) Lymph % (Auto) [place] % (Auto) Eos % (Auto) Baso % (Auto) Neut # (Auto) Lymph # (Auto) [place] # (Auto) Eos # (Auto) Baso # (Auto) Immature Gran # (Auto) Absolute Nucleated RBC Nucleated RBC % (auto) Polychromasia Anisocytosis Tear Drop Cells PT INR APTT PTT Ratio Heparin Anti-Xa, Unfract Sodium Potassium Chloride Carbon Dioxide Anion Gap BUN Creatinine Est Cr Clr Drug Dosing eGFR BUN/Creatinine Ratio Glucose POC Glucose 129 H 155 H 162 H Calcium Iron TIBC Transferrin Transferrin % Sat Ferritin PG Care Time/CCT Total # of Minutes Spent Total Time Spent with Patient: Total time spent is greater than 50% in coordination of care (as documented) at patient's floor/unit and/or counseling patient: Coding Level of Care Code 52629 SUB INP/OBS CARE 3/50MIN Diagnoses Atrial fibrillation with rapid ventricular response I48.91 Thrombocytopenia D69.6 End stage renal disease on dialysis N18.6; Z99.2 Acute hypoxic respiratory failure J96.01 Weakness R53.1 Autoimmune hepatitis treated with steroids K75.4 Pneumonia J18.9 Rhinovirus B34.8 MARILEE (acute kidney injury) N17.9 Elevated troponin R79.89 SARAH (obstructive sleep apnea) G47.33 Hypothyroidism E03.9 Morbid obesity with BMI of 40.0-44.9, adult E66.01; Z68.41 Renal cell carcinoma C64.9 S/P TAVR (transcatheter aortic valve replacement) Z95.2 Prediabetes R73.03 Blood per rectum K62.5 PAD (peripheral artery disease) I73.9
[2024-05-24] MEDS ORDERED: Nursing to Pharmacy Communication SCH (02:15)
[2024-05-24] MEDS: INSULIN ASPART PER UNIT CHARGE SC SCH (05:04)
--- NOTE | 2024-05-24 08:51 | Nephrology Progress Note ---
Date of Service May 24, 2024 Assessment & Plan (1) End stage renal disease on dialysis: Plan: * Outpatient orders: [facility] Dany MWF 3.5hr F-180NR 3K 2.5Ca Na140 HCO3 34 EDW 157kg * Patient was last dialyzed 05/21/24 for 3L UF * Patient will need outpatient HD EDW adjusted following hospitalization * Will schedule HD for this afternoon following BM Bx * Continue dietary sodium restriction. Maintain daily 1.5 L fluid limit. * Monitor BMP, I&O, wt (2) Anemia: Plan: * Will provide IV Venofer and SCOTT w/ HD * Awaiting bone marrow biopsy this am for evaluation of anemia/thrombocytopenia (3) Atrial fibrillation: Plan: * AV maggie ablation and pacemaker placement on 05/13/2024. * Anticoagulated with Eliquis. (4) Weakness: Plan: * Continue PT * Transfer to [facility] for ongoing PT once bed available (5) Renal cell carcinoma: Admission and Anticipated Discharge Date Admission Date: April 28, 2024 Subjective Mr. Guadalupe was evaluated in his hospital room this morning. He remains very weak states that he is slowly making progress with physical therapy. He is awaiting bone marrow biopsy this morning Review of Systems Constitutional: no fever Eyes: no problem reported Ear, Nose, Mouth, Throat: no problem reported Respiratory: no dyspnea Cardiovascular: no chest pain Gastrointestinal: no abdominal pain, no nausea, no vomiting and no diarrhea/loose stools Integumentary: no rash Physical Exam Constitutional: not in distress Eyes: PERRL, conjunctivae normal, anicteric sclerae ENMT: external ear and nose normal, oropharynx normal Neck: trachea midline, no thyromegaly (IJ TCC w/ clean dry dressing) Respiratory: normal respiratory effort (Diminished breath sounds right base) Auscultation: lungs clear to auscultation bilaterally and + rales (bilaterally) Cardiovascular: RRR, no murmur, no edema Rate/Rhythm: + tachycardic and + irregularly irregular Extremities: + edema (2+ peripheral edema) Gastrointestinal (Abdomen): normal bowel sounds, soft, nontender, no hepatosplenomegaly Musculoskeletal: Extremities: no cyanosis Skin: no rashes, warm and dry Neurologic: awake; not confused Speech / Cognition: normal speech and normal cognition Results & Data Vital Signs (Past 12 Hours) Vital Signs Temp Pulse Resp BP Pulse Ox O2 Del Method O2 Flow Rate 05/24/24 08:04 36.4 C L 05/24/24 07:56 34.7 C L 98 H 16 114/80 99 Nasal Cannula 3 05/23/24 21:00 Nasal Cannula 3 Laboratory Results Laboratory Results - last 24 hr 05/23/24 05/23/24 05/23/24 11:37 16:35 20:30 WBC RBC Hgb Hct MCV MCH MCHC RDW Std Deviation RDW Coeff of Nick Plt Count MPV Immature Gran % (Auto) Neut % (Auto) Lymph % (Auto) Archer % (Auto) Eos % (Auto) Baso % (Auto) Neut # (Auto) Lymph # (Auto) Archer # (Auto) Eos # (Auto) Baso # (Auto) Immature Gran # (Auto) Absolute Nucleated RBC Nucleated RBC % (auto) Platelet Estimate Polychromasia Anisocytosis Heparin Anti-Xa, Unfract Sodium Potassium Chloride Carbon Dioxide Anion Gap BUN Creatinine Est Cr Clr Drug Dosing eGFR BUN/Creatinine Ratio Glucose POC Glucose 155 H 162 H 160 H Calcium Total Bilirubin AST ALT Alkaline Phosphatase Total Protein Albumin Globulin Albumin/Globulin Ratio 05/24/24 05/24/24 05/24/24 05:04 06:00 07:52 WBC Cancelled RBC Hgb Hct MCV MCH MCHC RDW Std Deviation RDW Coeff of Nick Plt Count MPV Immature Gran % (Auto) Neut % (Auto) Lymph % (Auto) Archer % (Auto) Eos % (Auto) Baso % (Auto) Neut # (Auto) Lymph # (Auto) Archer # (Auto) Eos # (Auto) Baso # (Auto) Immature Gran # (Auto) Absolute Nucleated RBC Nucleated RBC % (auto) Platelet Estimate Polychromasia Anisocytosis Heparin Anti-Xa, Unfract Sodium Potassium Chloride Carbon Dioxide Anion Gap BUN Creatinine Est Cr Clr Drug Dosing eGFR BUN/Creatinine Ratio Glucose POC Glucose 105 H 105 H Calcium Total Bilirubin AST ALT Alkaline Phosphatase Total Protein Albumin Globulin Albumin/Globulin Ratio 05/24/24 05/24/24 05/24/24 07:52 07:52 07:52 WBC 6.92 RBC Cancelled 2.95 L Hgb Cancelled 8.2 L Hct Cancelled MCV MCH MCHC RDW Std Deviation RDW Coeff of Nick Plt Count MPV Immature Gran % (Auto) Neut % (Auto) Lymph % (Auto) Archer % (Auto) Eos % (Auto) Baso % (Auto) Neut # (Auto) Lymph # (Auto) Archer # (Auto) Eos # (Auto) Baso # (Auto) Immature Gran # (Auto) Absolute Nucleated RBC Nucleated RBC % (auto) Platelet Estimate Polychromasia Anisocytosis Heparin Anti-Xa, Unfract Sodium Potassium Chloride Carbon Dioxide Anion Gap BUN Creatinine Est Cr Clr Drug Dosing eGFR BUN/Creatinine Ratio Glucose POC Glucose Calcium Total Bilirubin AST ALT Alkaline Phosphatase Total Protein Albumin Globulin Albumin/Globulin Ratio 05/24/24 05/24/24 05/24/24 07:52 07:52 07:52 WBC RBC Hgb Hct 28.1 L MCV Cancelled 95.3 MCH Cancelled 27.8 MCHC Cancelled RDW Std Deviation RDW Coeff of Nick Plt Count MPV Immature Gran % (Auto) Neut % (Auto) Lymph % (Auto) Archer % (Auto) Eos % (Auto) Baso % (Auto) Neut # (Auto) Lymph # (Auto) Archer # (Auto) Eos # (Auto) Baso # (Auto) Immature Gran # (Auto) Absolute Nucleated RBC Nucleated RBC % (auto) Platelet Estimate Polychromasia Anisocytosis Heparin Anti-Xa, Unfract Sodium Potassium Chloride Carbon Dioxide Anion Gap BUN Creatinine Est Cr Clr Drug Dosing eGFR BUN/Creatinine Ratio Glucose POC Glucose Calcium Total Bilirubin AST ALT Alkaline Phosphatase Total Protein Albumin Globulin Albumin/Globulin Ratio 05/24/24 05/24/24 05/24/24 07:52 07:52 07:52 WBC RBC Hgb Hct MCV MCH MCHC 29.2 L RDW Std Deviation Cancelled 99.5 H RDW Coeff of Nick Cancelled 30.0 H Plt Count Cancelled MPV Immature Gran % (Auto) Neut % (Auto) Lymph % (Auto) Archer % (Auto) Eos % (Auto) Baso % (Auto) Neut # (Auto) Lymph # (Auto) Archer # (Auto) Eos # (Auto) Baso # (Auto) Immature Gran # (Auto) Absolute Nucleated RBC Nucleated RBC % (auto) Platelet Estimate Polychromasia Anisocytosis Heparin Anti-Xa, Unfract Sodium Potassium Chloride Carbon Dioxide Anion Gap BUN Creatinine Est Cr Clr Drug Dosing eGFR BUN/Creatinine Ratio Glucose POC Glucose Calcium Total Bilirubin AST ALT Alkaline Phosphatase Total Protein Albumin Globulin Albumin/Globulin Ratio 05/24/24 05/24/24 05/24/24 07:52 07:52 07:52 WBC RBC Hgb Hct MCV MCH MCHC RDW Std Deviation RDW Coeff of Nick Plt Count 49 L MPV Cancelled Immature Gran % (Auto) 2.2 Neut % (Auto) 81.5 Lymph % (Auto) 11.1 Archer % (Auto) 4.8 Eos % (Auto) 0.1 Baso % (Auto) 0.3 Neut # (Auto) 5.64 Lymph # (Auto) 0.77 L Archer # (Auto) 0.33 Eos # (Auto) 0.01 Baso # (Auto) 0.02 Immature Gran # (Auto) 0.15 Absolute Nucleated RBC Cancelled 0.36 H Nucleated RBC % (auto) Cancelled 5.2 Platelet Estimate Cancelled Polychromasia 2+ Anisocytosis Present Heparin Anti-Xa, Unfract 0.13 L Sodium 134 L Potassium 4.9 D Chloride 97 L Carbon Dioxide 27 Anion Gap 10 BUN 82 H Creatinine 5.70 H* D Est Cr Clr Drug Dosing 18.3 eGFR 10.03 BUN/Creatinine Ratio 14.4 Glucose 93 POC Glucose Calcium 9.5 Total Bilirubin 2.3 H AST 52 H ALT 20 Alkaline Phosphatase 235 H Total Protein 4.8 L Albumin 2.8 L Globulin 2.0 L Albumin/Globulin Ratio 1.4 PG Care Time/CCT Total # of Minutes Spent Total Time Spent with Patient: Total time spent is greater than 50% in coordination of care (as documented) at patient's floor/unit and/or counseling patient: Coding Level of Care Code 96271 SUB INP/OBS CARE 3/50MIN Diagnoses End stage renal disease on dialysis N18.6; Z99.2 Anemia D64.9 Atrial fibrillation I48.91 Atrial fibrillation type: unspecified Weakness R53.1 Renal cell carcinoma C64.9 (3) Atrial fibrillation Atrial fibrillation type: unspecified Qualified Code(s): I48.91 - Unspecified atrial fibrillation
[2024-05-24 08:53] LABS: Albumin Globulin Ratio 1.4 (0.9-2); Albumin Level 2.8 gm/dl (3.4-5.0); BUN Creatinine Ratio 14.4 (10-20); Bilirubin,Total 2.3 mg/dl (0.2-1.0); Calcium 9.5 mg/dl (8.6-10.3); Creatinine Clr Calc Pharmacy 18.3 ml/min; Potassium 4.9 mmol/L (3.5-5.1); Total Protein 4.8 gm/dl (6.0-8.3)
[2024-05-24 08:55] LABS: ANTI-Xa, UFH(UnfractionatedHep 0.13 IU/ml (0.3-0.7)
[2024-05-24 09:07] LABS: Hematocrit (blood only) 28.1 % (42.0-52.0); Hemoglobin 8.2 g/dl (14.0-18.0); Mean Corpuscular Hemoglobin 27.8 pg (25.0-34.0); Mean Corpuscular Hgb Conc 29.2 g/dL (32.0-36.0); Mean Corpuscular Volume 95.3 fL (80.0-100.0); Nucleated RBC # (auto) 0.36 K/uL (0.00-0.12); Nucleated RBC % (auto) 5.2 %; Platelet Count 49 K/uL (130-400); RDW Standard Deviation 99.5 fL (36.4-46.3); Red Blood Count 2.95 M/uL (4.70-6.10); White Blood Count 6.92 K/ul (4.8-10.8)
[2024-05-24 09:20] LABS: Anisocytosis Present; Basophils # (auto) 0.02 K/uL (0.00-0.20); Basophils % (auto) 0.3 %; Bone Marrow Smear SLHOLD; Eosinophils # (auto) 0.01 K/uL (0.00-0.50); Eosinophils % (auto) 0.1 %; Immature Granulocytes # (auto) 0.15 K/uL (0.01-0.20); Immature Granulocytes % (auto) 2.2 %; Lymphocytes # (auto) 0.77 K/uL (1.20-3.40); Lymphocytes % (auto) 11.1 %; Monocytes # (auto) 0.33 K/uL (0.11-0.59); Monocytes % (auto) 4.8 %; Neutrophils # (auto) 5.64 K/uL (1.40-6.50); Neutrophils % (auto) 81.5 %; Polychromasia 2+
[2024-05-24] MEDS: EPOETIN ALFA 20,000 UNITS/ML VIAL IV ONE (12:52)
[2024-05-24] MEDS: IRON SUCROSE 200 MG in SYRINGE 0 ML IV ONE (12:52)
--- NOTE | 2024-05-24 13:51 | Electrocardiogram Report ---
Test Reason : Blood Pressure : */* mmHG Vent. Rate : 111 BPM Atrial Rate : 111 BPM P-R Int : * ms QRS Dur : 104 ms QT Int : 320 ms P-R-T Axes : * -7 178 degrees QTcB Int : 435 ms Atrial fibrillation with rapid ventricular response with frequent ventricular-paced complexes Marked ST abnormality, possible lateral subendocardial injury Abnormal ECG When compared with ECG of 13-May-2024 14:32, Vent. rate has increased by 21 bpm Confirmed by Estevan Kyle ([id number]) on 05/24/2024 1:51:23 PM Referred By: Alfredo Timmons Confirmed By: Estevan Kyle
--- NOTE | 2024-05-24 13:51 | Electrocardiogram Report ---
Test Reason : Blood Pressure : */* mmHG Vent. Rate : 112 BPM Atrial Rate : 102 BPM P-R Int : * ms QRS Dur : 106 ms QT Int : 324 ms P-R-T Axes : * -4 176 degrees QTcB Int : 442 ms Atrial fibrillation with a demand pacemaker Abnormal ECG When compared with ECG of 13-May-2024 14:32, Vent. rate has increased by 22 bpm Confirmed by Estevan Kyle ([id number]) on 05/24/2024 1:51:11 PM Referred By: Alfredo Timmons Confirmed By: Estevan Kyle
[2024-05-24] MEDS ORDERED: MIDAZOLAM HCL 1 MG/ML 2ML VIAL IV ONE (14:17)
[2024-05-24] MEDS ORDERED: fentaNYL citrate PF 100 MCG/2 ML VIAL IV ONE (14:17)
[2024-05-24] MEDS ORDERED: LIDOCAINE 1% LOCAL 20 ML VIAL INFIL ONE (14:17)
--- NOTE | 2024-05-24 14:27 | CT Scan Report ---
CT guided bone marrow biopsy INDICATION: Thrombocytopenia PROCEDURE: Procedure and risks were explained. Informed consent was obtained. A final timeout was com pleted. The patient was placed prone in a decubitus position and the CT exam table. The right gluteal region was prepped and draped in sterile fashion. 1% lidocaine was utilized for skin anesthesia. Utilizing CT guidance, an 11-gauge bone biopsy needle was advanced into the right iliac bone. Multipl e aspirates and one bone core was obtained and given to the lab. The needle was removed and Band-Aid applied. The patient tolerated the procedure well. Vital signs will be monitored postprocedure. IMPRESSION: Bone marrow biopsy as above. Performed, dictated, and signed by Venancio Mendes PA-C; to be co-signed by Dr. Alex Garcia. Electronically signed by: Alex Garcia M.D. 05/24/2024 2:28 PM
[2024-05-24] MEDS: ACETAMINOPHEN 1000 MG/100 ML IV IV ONE (15:23)
[2024-05-24] MEDS: fentaNYL citrate PF 100 MCG/2 ML VIAL ONE (15:24)
--- NOTE | 2024-05-24 19:51 | Hospitalist Progress Note ---
Date of Service May 24, 2024 Assessment & Plan (1) Atrial fibrillation with rapid ventricular response: Plan: chronic, long-standing permanent a.fib followed by outside cardiology near [place] early in admission had had poor rate control despite meto succ BID + cardizem CD 120mg HS on chronic Eliquis 2.5mg BID for anticoagulation (on hold since last week due to procedures) was poor candidate for amiodarone due to abnormal LFTs & autoimmune hepatitis hypotension precluded us from using higher doses of AV maggie agents cardioversion not successful in the past Dr Mitchell ultimately performed AV node ablation with permanent pacemaker insertion on 05/13/24 he had been pacing [id number] (pacer dependent due to AV node ablation) HOWEVER, starting ~05/21/24, he became tachycardic unfortunately he has converted back to rapid a.fib thus indicating residual AV node function Dr Kyle saw over the weekend; added metoprolol 50mg BID - but no response to such - just hypotension Dr Kyle recommended repeating AV maggie ablation - planned for 05/25/24 AM; NPO after MN tonight for such Eliquis on hold heparin drip low-dose remains (he is high risk of VTE & high risk of developing thrombus while off Eliquis) will hold starting early tomorrow morning appreciate Dr Kyle (and Dr Mitchell's) assistance (2) Thrombocytopenia: Plan: IMPROVING finally platelets today 49 lowest platelets ~30 30s to 70s range while here without bleeding peak platelet count was 90s in March 2024 s/p platelet transfusion on 05/13/24 for pacemaker insertion B12/folate levels wnl formal peripheral smear --> nothing to suggest TTP/HUS; no evidence of DIC; nothing on smear to point to specific etiology 2nd to Opdivo? 2nd to liver dysfunction? 2nd to possible EBV infection? --> EBV PCR returned POSITIVE other primary bone marrow d/o?? combination of factors? cont to HOLD ELIQUIS s/p Bone marrow biopsy today; appreciated IR assistance low-dose heparin drip until tomorrow AM then hold starting 5am in preparation for AV node ablation procedure CMV, parvovirus titers pending CBC in am tomorrow for stability (3) Laura Cobb virus infection: Plan: EBV titers were positive for IgM indicating current or recent infection EBV PCR returned POSITIVE today either this could be a primary infection OR re-activation in the setting of immunosuppression I do believe EBV infection could be contributing to hepatitis, low platelets, extreme fatigue, etc. no Rx - supportive care (4) End stage renal disease on dialysis: Plan: 68yo male - recent initiation of dialysis (M/W/F) for development of ESRD 03/2024, solitary kidney status (previous right nephrectomy for renal cell ca), A-fib, stage 4 renal cell cancer previously on Opdivo, HTN, hypercholesterolemia, hypothyroidism, and SARAH. Presented 04/28/24 with b/l leg weakness. BioFire positive for entero- /rhinovirus. CXR with pulmonary edema and new bilateral basilar infiltrates with small pleural effusions. Had had 9 serial HD sessions due to severe volume overload earlier in the admission. Last week required 4 sessions. This week was maintained on M/W/F HD schedule with stable pulmonary status. Appreciate [facility] assistance for HD needs. Volume status MARKEDLY improved since admission. Suspect that some of his LE edema is chronic lymphedema (pt/ state he has had edema "for years"). Continue midodrine to prevent intra-HD hypotension. (5) Acute hypoxic respiratory failure: Plan: stable on NC O2 multifactorial - pulmonary edema from ESRD status (and potentially liver dysfunction & cardiac issues), rhinovirus infection, +/- pneumonia rhinovirus & pneumonia resolved continue HD for volume control stable on NC O2 during the day CPAP with sleep (6) Weakness: Plan: IMPROVING especially his hip proximal muscles deconditioning is the main culprit more than likely although cannot rule out a steroid myopathy lumbar spine issue cannot be ruled out but less likely (no paresthesias or radicular pain of legs) checked B1 level - wnl checked CPK - wnl B12 level - 605 acute mono or subacute mono likely contributing --> see #3 above cont PT/OT as tolerated needs intensive rehab post-discharge - he was walking at home prior to this hospitalization will have such at [facility] post discharge (7) Autoimmune hepatitis treated with steroids: Plan: autoimmune hepatitis diagnosed July 2023 secondary to immunotherapy for renal cell ca has been on chronic steroids for such since that time during previous hospital stay in March 2024 was placed on steroid burst for this issue as well as concern that immunotherapy was contributing to his thrombocytopenia initially was on 70mg/day weaning every 7 days by 10mg increments thus, weaned to 50mg/day on 05/05 weaned to 40mg on 05/12 weaned to 30mg 05/19; day #6 of 30mg dose wean to 20mg on 05/26/24 hepatitis - 2nd to Opdivo? 2nd to hepatic congestion from volume overload? combination of factors? EBV IgM returned POSITIVE EBV PCR also positive indicating acute or subacute infection (or re-activation) This could be contributing to hepatitis & low platelets CMV & parvovirus titers pending HepA, HepB, and HepC ab's were NEGATIVE in 06/2023 LFTs remain mildly high despite steroids ammonia level wnl continue PJP prophy until prednisone is <20mg/day; use SS tmp/sulfa 1 tab M/W/F at HS for prophylaxis K levels wnl obtained formal GI consult to ensure nothing else is causing the liver dysfunction - they agree that it is likely due to immunotherapy/autoimmune +/- right heart failure/passive congestion (8) Pneumonia: Plan: b/l basilar -- resolved could have been viral pneumonia 2nd to rhinovirus could have been bacterial superinfection completed 7+ days if IV/PO abx cont TMP/sulfa for PJP prophylaxis (9) Rhinovirus: Plan: earlier this admission resolved (10) MARILEE (acute kidney injury): Plan: 03/2024 - with ultimate need for HD see above in #1 (11) Elevated troponin: Plan: peak HS trop 103 early in the admission no evidence of ACS likely myocardial demand ischemia in setting of volume overload from #1, rapid a.fib, rhinovirus infection, ?pneumonia, etc. (12) SARAH (obstructive sleep apnea): Plan: cont home CPAP (13) Hypothyroidism: Plan: TSH 03/2024 wnl cont synthroid (14) Morbid obesity with BMI of 40.0-44.9, adult: Plan: BMI 38 (15) Renal cell carcinoma: Plan: stage 4 h/o right nephrectomy due to RCC follows with Dr Grijalva - cancer care [facility] remaining left kidney has cysts vs masses on last imaging study - this bears watching (16) S/P TAVR (transcatheter aortic valve replacement): Plan: last echo with normal valve function (04/17) (17) Prediabetes: Plan: Hba1c 6.1% in Mar 2024 controlled with novolog SSI (18) Blood per rectum: Plan: resolved 2nd small hemorrhoids? (vs fissure I could not see?) either way it is anal outlet -- doubt diverticulosis started anusol suppos BID on 05/19 will stop anusol after today's doses h/h stable (19) PAD (peripheral artery disease): Plan: biphasic waveforms on LLE proximal vessels monophasic waveforms on distal vessels toes have dusky appearance, foot is cool, and cap refill is delayed especially the 3rd/4th/5th toes ideally should be on antiplatelet agents and statin but both contraindicated right now due to abnormal LFTs and low platelets I spoke with Dr Tolentino from cards/vascular to see in consult he will review films and see him Plan VTE prophylaxis - cont to hold Eliquis 2.5mg BID due to multiple procedures cont heparin bridge low-dose until about 500am tomorrow; then hold for repeat AV node ablation by Dr Kyle cont PT/OT updated at bedside once again today dispo - [facility] - timing very uncertain Admission and Anticipated Discharge Date Admission Date: April 28, 2024 Subjective had bone marrow bx this am followed by HD session 1.9 L UF removed there was limitation in the UF due to hypotension he was "exhausted" following today's events AV node ablation was planned for today but due to logistics, etc it is now on for tomorrow am denies any new complaints other than extreme fatigue at bedside and has been updated Review of Systems Review of Systems: gen - no fevers or chills cv - no chest pain pulm - no dyspnea at rest GI - no abd pain or N/V; +stool early this am Physical Exam Physical Exam: gen - morbidly obese, NAD, lying comfortably in bed; looks tired mouth - MMM, no thrush neck - no JVD heart - still irregularly irregular, tachy, s1 s2, 1/6 systolic murmur LSB lungs - CTA b/l; no rales; no wheezes; minimally decreased BS bases abd - soft NT ND BS+; reducible chioma-umbilical hernia unchanged ext - 2+ pitting edema feet; <1+ pitting edema of shins; pulses R foot 1-2+; left foot pulses 1+ at best; left popliteal pulse 1-2+; left foot remains cold - similar to prior exams; right foot is mildly warm; cap refill left foot despite the cold foot is 2 seconds for the 1st/2nd toes, but prolonged for the 3rd/4th/5th toes - worst is the 5th toe; right foot 1-2 sec cap refill; all toes L foot are mildly dusky in appearance - but unchanged from all prior exams psych - a/o x 3 skin - numerous optifoams b/l arms; pacemaker site left upper chest covered with steri strips; ecchymoses and petechiae present left upper chest; no hematoma present Results & Data Results & Data Vital Signs (Past 12 Hours) Vital Signs Temp Pulse Pulse Pulse Pulse Pulse Resp 05/24/24 19:07 36.6 C 106 H 16 05/24/24 17:00 118 H 05/24/24 15:16 36.4 C L 114 H 16 05/24/24 15:15 36.3 C L 115 H 05/24/24 14:46 110 H 05/24/24 14:30 102 H 05/24/24 14:15 107 H 05/24/24 14:00 105 H 05/24/24 13:50 103 H 05/24/24 13:40 102 H 05/24/24 13:30 101 H 05/24/24 13:00 106 H 05/24/24 12:30 108 H 05/24/24 12:00 106 H 05/24/24 11:30 109 H 05/24/24 11:20 93 H 05/24/24 11:00 36.3 C L 89 05/24/24 08:04 36.4 C L 05/24/24 07:56 34.7 C L 98 H 16 BP BP Pulse Ox O2 Del Method O2 Flow Rate 05/24/24 19:07 103/67 98 Nasal Cannula 3 05/24/24 17:00 107/73 05/24/24 15:16 89/64 L 100 Nasal Cannula 3 05/24/24 15:15 97/69 L 05/24/24 14:46 82/31 L 05/24/24 14:30 89/69 L 05/24/24 14:15 87/57 L 05/24/24 14:00 88/60 L 05/24/24 13:50 97/74 L 05/24/24 13:40 88/58 L 05/24/24 13:30 83/61 L 05/24/24 13:00 93/67 L 05/24/24 12:30 96/63 L 05/24/24 12:00 103/61 05/24/24 11:30 120/87 05/24/24 11:20 107/80 05/24/24 11:00 05/24/24 08:04 05/24/24 07:56 114/80 99 Nasal Cannula 3 Laboratory Results Laboratory Results - last 24 hr 05/23/24 05/24/24 05/24/24 20:30 05:04 06:00 WBC RBC Hgb Hct MCV MCH MCHC RDW Std Deviation RDW Coeff of Nick Plt Count MPV Immature Gran % (Auto) Neut % (Auto) Lymph % (Auto) [place] % (Auto) Eos % (Auto) Baso % (Auto) Neut # (Auto) Lymph # (Auto) [place] # (Auto) Eos # (Auto) Baso # (Auto) Immature Gran # (Auto) Absolute Nucleated RBC Nucleated RBC % (auto) Platelet Estimate Polychromasia Anisocytosis Heparin Anti-Xa, Unfract Sodium Potassium Chloride Carbon Dioxide Anion Gap BUN Creatinine Est Cr Clr Drug Dosing eGFR BUN/Creatinine Ratio Glucose POC Glucose 160 H 105 H 105 H Calcium Total Bilirubin AST ALT Alkaline Phosphatase Total Protein Albumin Globulin Albumin/Globulin Ratio BM Chromosome Analysis Flow Cytometry Comment [facility] [place] 05/24/24 05/24/24 05/24/24 07:52 07:52 07:52 WBC Cancelled 6.92 RBC Cancelled 2.95 L Hgb Cancelled Hct MCV MCH MCHC RDW Std Deviation RDW Coeff of Nick Plt Count MPV Immature Gran % (Auto) Neut % (Auto) Lymph % (Auto) [place] % (Auto) Eos % (Auto) Baso % (Auto) Neut # (Auto) Lymph # (Auto) [place] # (Auto) Eos # (Auto) Baso # (Auto) Immature Gran # (Auto) Absolute Nucleated RBC Nucleated RBC % (auto) Platelet Estimate Polychromasia Anisocytosis Heparin Anti-Xa, Unfract Sodium Potassium Chloride Carbon Dioxide Anion Gap BUN Creatinine Est Cr Clr Drug Dosing eGFR BUN/Creatinine Ratio Glucose POC Glucose Calcium Total Bilirubin AST ALT Alkaline Phosphatase Total Protein Albumin Globulin Albumin/Globulin Ratio BM Chromosome Analysis Flow Cytometry Comment [facility] [place] 05/24/24 05/24/24 05/24/24 07:52 07:52 07:52 WBC RBC Hgb 8.2 L Hct Cancelled 28.1 L MCV Cancelled 95.3 MCH Cancelled MCHC RDW Std Deviation RDW Coeff of Nick Plt Count MPV Immature Gran % (Auto) Neut % (Auto) Lymph % (Auto) [place] % (Auto) Eos % (Auto) Baso % (Auto) Neut # (Auto) Lymph # (Auto) [place] # (Auto) Eos # (Auto) Baso # (Auto) Immature Gran # (Auto) Absolute Nucleated RBC Nucleated RBC % (auto) Platelet Estimate Polychromasia Anisocytosis Heparin Anti-Xa, Unfract Sodium Potassium Chloride Carbon Dioxide Anion Gap BUN Creatinine Est Cr Clr Drug Dosing eGFR BUN/Creatinine Ratio Glucose POC Glucose Calcium Total Bilirubin AST ALT Alkaline Phosphatase Total Protein Albumin Globulin Albumin/Globulin Ratio BM Chromosome Analysis Flow Cytometry Comment [facility] [place] 05/24/24 05/24/24 05/24/24 07:52 07:52 07:52 WBC RBC Hgb Hct MCV MCH 27.8 MCHC Cancelled 29.2 L RDW Std Deviation Cancelled 99.5 H RDW Coeff of Nick Cancelled Plt Count MPV Immature Gran % (Auto) Neut % (Auto) Lymph % (Auto) [place] % (Auto) Eos % (Auto) Baso % (Auto) Neut # (Auto) Lymph # (Auto) [place] # (Auto) Eos # (Auto) Baso # (Auto) Immature Gran # (Auto) Absolute Nucleated RBC Nucleated RBC % (auto) Platelet Estimate Polychromasia Anisocytosis Heparin Anti-Xa, Unfract Sodium Potassium Chloride Carbon Dioxide Anion Gap BUN Creatinine Est Cr Clr Drug Dosing eGFR BUN/Creatinine Ratio Glucose POC Glucose Calcium Total Bilirubin AST ALT Alkaline Phosphatase Total Protein Albumin Globulin Albumin/Globulin Ratio BM Chromosome Analysis Flow Cytometry Comment [facility] [place] 05/24/24 05/24/24 05/24/24 07:52 07:52 07:52 WBC RBC Hgb Hct MCV MCH MCHC RDW Std Deviation RDW Coeff of Nick 30.0 H Plt Count Cancelled 49 L MPV Cancelled Immature Gran % (Auto) 2.2 Neut % (Auto) 81.5 Lymph % (Auto) 11.1 [place] % (Auto) 4.8 Eos % (Auto) 0.1 Baso % (Auto) 0.3 Neut # (Auto) 5.64 Lymph # (Auto) 0.77 L [place] # (Auto) 0.33 Eos # (Auto) 0.01 Baso # (Auto) 0.02 Immature Gran # (Auto) 0.15 Absolute Nucleated RBC Cancelled 0.36 H Nucleated RBC % (auto) Cancelled Platelet Estimate Polychromasia Anisocytosis Heparin Anti-Xa, Unfract Sodium Potassium Chloride Carbon Dioxide Anion Gap BUN Creatinine Est Cr Clr Drug Dosing eGFR BUN/Creatinine Ratio Glucose POC Glucose Calcium Total Bilirubin AST ALT Alkaline Phosphatase Total Protein Albumin Globulin Albumin/Globulin Ratio BM Chromosome Analysis Flow Cytometry Comment Mis Pathology Test 05/24/24 05/24/24 05/24/24 07:52 10:45 15:44 WBC RBC Hgb Hct MCV MCH MCHC RDW Std Deviation RDW Coeff of Nick Plt Count MPV Immature Gran % (Auto) Neut % (Auto) Lymph % (Auto) [place] % (Auto) Eos % (Auto) Baso % (Auto) Neut # (Auto) Lymph # (Auto) [place] # (Auto) Eos # (Auto) Baso # (Auto) Immature Gran # (Auto) Absolute Nucleated RBC Nucleated RBC % (auto) 5.2 Platelet Estimate Cancelled Polychromasia 2+ Anisocytosis Present Heparin Anti-Xa, Unfract 0.13 L Sodium 134 L Potassium 4.9 D Chloride 97 L Carbon Dioxide 27 Anion Gap 10 BUN 82 H Creatinine 5.70 H* D Est Cr Clr Drug Dosing 18.3 eGFR 10.03 BUN/Creatinine Ratio 14.4 Glucose 93 POC Glucose 111 H Calcium 9.5 Total Bilirubin 2.3 H AST 52 H ALT 20 Alkaline Phosphatase 235 H Total Protein 4.8 L Albumin 2.8 L Globulin 2.0 L Albumin/Globulin Ratio 1.4 BM Chromosome Analysis Pending Flow Cytometry Comment Pending Misc Pathology Test Pending PG Care Time/CCT Total # of Minutes Spent Total Time Spent with Patient: Total time spent is greater than 50% in coordination of care (as documented) at patient's floor/unit and/or counseling patient: Coding Level of Care Code 74930 SUB INP/OBS CARE 3/50MIN Diagnoses Atrial fibrillation with rapid ventricular response I48.91 Thrombocytopenia D69.6 Laura Cobb virus infection B27.90 End stage renal disease on dialysis N18.6; Z99.2 Acute hypoxic respiratory failure J96.01 Weakness R53.1 Autoimmune hepatitis treated with steroids K75.4 Pneumonia J18.9 Rhinovirus B34.8 MARILEE (acute kidney injury) N17.9 Elevated troponin R79.89 SARAH (obstructive sleep apnea) G47.33 Hypothyroidism E03.9 Morbid obesity with BMI of 40.0-44.9, adult E66.01; Z68.41 Renal cell carcinoma C64.9 S/P TAVR (transcatheter aortic valve replacement) Z95.2 Prediabetes R73.03 Blood per rectum K62.5 PAD (peripheral artery disease) I73.9
[2024-05-24 21:26] LABS: EBV DNA Quant PCR 780 copies/mL; EBV DNA Quant Source Whole Blood
[2024-05-25 06:40] LABS: Albumin Globulin Ratio 1.5 (0.9-2); BUN Creatinine Ratio 12.8 (10-20); Calcium 9.6 mg/dl (8.6-10.3); Creatinine Clr Calc Pharmacy 23.9 ml/min; Potassium 4.4 mmol/L (3.5-5.1)
[2024-05-25 06:48] LABS: Hematocrit (blood only) 31.1 % (42.0-52.0); Hemoglobin 8.9 g/dl (14.0-18.0); Mean Corpuscular Hemoglobin 27.7 pg (25.0-34.0); Mean Corpuscular Hgb Conc 28.6 g/dL (32.0-36.0); Mean Corpuscular Volume 96.9 fL (80.0-100.0); Nucleated RBC # (auto) 0.98 K/uL (0.00-0.12); Nucleated RBC % (auto) 13.7 %; Platelet Count 44 K/uL (130-400); Platelet Estimate Decreased (Normal); RDW Coefficient of Variation 30.5 % (11.5-14.5); RDW Standard Deviation 103.6 fL (36.4-46.3); Red Blood Count 3.21 M/uL (4.70-6.10); White Blood Count 7.15 K/ul (4.8-10.8)
[2024-05-25 07:19] LABS: ANTI-Xa, UFH(UnfractionatedHep 0.49 IU/ml (0.3-0.7)
--- NOTE | 2024-05-25 07:34 | Hospitalist Progress Note ---
Date of Service May 25, 2024 Assessment & Plan (1) Atrial fibrillation with rapid ventricular response: Plan: chronic, long-standing permanent a.fib followed by outside cardiology near [place] early in admission had had poor rate control despite meto succ BID + cardizem CD 120mg HS on chronic Eliquis 2.5mg BID for anticoagulation (on hold since last week due to procedures) was poor candidate for amiodarone due to abnormal LFTs & autoimmune hepatitis hypotension precluded us from using higher doses of AV maggie agents cardioversion not successful in the past Dr Mitchell ultimately performed AV node ablation with permanent pacemaker insertion on 05/13/24 he had been pacing [id number] (pacer dependent due to AV node ablation) HOWEVER, starting ~05/21/24, he became tachycardic unfortunately he has converted back to rapid a.fib thus indicating residual AV node function Dr Kyle saw over the weekend; added metoprolol 50mg BID - but no response to such - just hypotension Dr Kyle recommended repeating AV maggie ablation - planned for 05/25/24 AM; NPO after MN tonight for such Eliquis on hold heparin drip low-dose remained (he is high risk of VTE & high risk of developing thrombus while off Eliquis) - hold starting early AM 05/25 for ablation 3/4 s/p ablation with Dr Kyle this morning 3/4 NSR on telemetry with rates 80-90s. Heparin gtt discontinued, eliquis to resume this evening 3/4 BID per cardiology Mag/K stable Plan for HD tomorrow, hopefully able to pull off more fluid now back in NSR, BP 111/72 at present Titrate O2 as able Dr Tolentino consulted, outpt f/u eventual intervention but not at current time. 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 Can reach out if any clear evidence for limb threatening CLI going forward and can revisit need for angio if needed Eventual [facility] for rehab, CM follow Monitor labs/exam on repeat (2) Thrombocytopenia: Plan: IMPROVING finally -- lowest ~30 platelets 49 yesterday, currently 34 B12/folate wnl. Peripheral smear without suggestion TTP/HUS, no evidence for DIC. ?2nd to Opdivo, liver dysfunction ?2nd to possible EBV infection given EBV PCR returned POSITIVE Heparin gtt discontinued for above, eliquis to resume this evening CMV, parvovirus titers pending s/p bone marrow biopsy 05/24-- BM chromosome analysis/flow cytometry/pathology pending CBC in AM (3) Laura Cobb virus infection: Plan: EBV titers were positive for IgM indicating current or recent infection EBV PCR returned POSITIVE 05/24 -either this could be a primary infection OR re-activation in the setting of immunosuppression I do believe EBV infection could be contributing to hepatitis, low platelets, extreme fatigue, etc. no Rx - supportive care (4) End stage renal disease on dialysis: Plan: 68yo male - recent initiation of dialysis (M/W/F) for development of ESRD 03/2024, solitary kidney status (previous right nephrectomy for renal cell ca), A-fib, stage 4 renal cell cancer previously on Opdivo, HTN, hypercholesterolemia, hypothyroidism, and SARAH. Presented 04/28/24 with b/l leg weakness. BioFire positive for entero- /rhinovirus. CXR with pulmonary edema and new bilateral basilar infiltrates with small pleural effusions. Had had 9 serial HD sessions due to severe volume overload earlier in the admission. Last week required 4 sessions. This week was maintained on M/W/F HD schedule with stable pulmonary status. [place] [facility] [place]. Volume status MARKEDLY improved since admission. Suspect that some of his LE edema is chronic lymphedema (pt/ state he has had edema "for years"). Continue midodrine to prevent intra-HD hypotension. Oliguric/no bumex use (5) Acute hypoxic respiratory failure: Plan: stable on NC O2 multifactorial - pulmonary edema from ESRD status (and potentially liver dysfunction & cardiac issues), rhinovirus infection, +/- pneumonia, afib/RVR rhinovirus & pneumonia resolved continue HD for volume control stable on NC O2 during the day, CPAP w/ sleeping Titrated from 4L this morning to 2.5L and monitor w/ oriental orthodox in NSR.IS encouraged (6) Weakness: Plan: IMPROVING especially his hip proximal muscles --deconditioning is the main culprit more than likely, although cannot rule out a steroid myopathy given long standing use lumbar spine issue cannot be ruled out but less likely (no paresthesias or radicular pain of legs) checked B1 level - wnl checked CPK - wnl B12 level - 605 acute mono or subacute mono likely contributing --> see #3 above cont PT/OT as tolerated needs intensive rehab post-discharge - he was walking at home prior to this hospitalization --> will have such at [facility] post discharge (7) Autoimmune hepatitis treated with steroids: Plan: autoimmune hepatitis diagnosed July 2023 secondary to immunotherapy for renal cell ca has been on chronic steroids for such since that time during previous hospital stay in March 2024 was placed on steroid burst for this issue as well as concern that immunotherapy was contributing to his thrombocytopenia initially was on 70mg/day weaning every 7 days by 10mg increments, down to 50mg on 05/05, 40mg on 05/12, 30mg on 05/19 and plans to decrease to 20mg AM 05/26 hepatitis - 2nd to Opdivo? 2nd to hepatic congestion from volume overload? combination of factors? EBV IgM returned POSITIVE EBV PCR also positive indicating acute or subacute infection (or re-activation) This could be contributing to hepatitis & low platelets CMV & parvovirus titers pending HepA, HepB, and HepC ab's were NEGATIVE in 06/2023 LFTs remain mildly high despite steroids , ammonia wnl Continue PJP prophy until prednisone is <20mg/day; use SS tmp/sulfa 1 tab M/W/F at HS for prophylaxis K levels wnl obtained formal GI consult to ensure nothing else is causing the liver dysfunction - they agree that it is likely due to immunotherapy/autoimmune +/- right heart failure/passive congestion (8) Pneumonia: Plan: b/l basilar -- resolved could have been viral pneumonia 2nd to rhinovirus vs bacterial superinfection Has completed 7+ days IV/PO abx and remains on Bactrim for PJP proph as above (9) Rhinovirus: Plan: earlier this admission , since resolved. monitor for any issues, continue IS encouraged (10) MARILEE (acute kidney injury): Plan: 03/2024 - with ultimate need for HD see above in #1 (11) Elevated troponin: Plan: peak HS trop 103 early in the admission no evidence of ACS likely myocardial demand ischemia in setting of volume overload from #1, rapid a.fib, rhinovirus infection, ?pneumonia, etc. (12) SARAH (obstructive sleep apnea): Plan: cont home CPAP - in room/has been using home machine (13) Hypothyroidism: Plan: TSH 03/2024 wnl cont synthroid (14) Morbid obesity with BMI of 40.0-44.9, adult: Plan: BMI 38 (15) Renal cell carcinoma: Plan: stage 4 h/o right nephrectomy due to RCC follows with Dr Grijalva - cancer care clinic remaining left kidney has cysts vs masses on last imaging study - this bears watching (16) S/P TAVR (transcatheter aortic valve replacement): Plan: last echo with normal valve function (04/17) (17) Prediabetes: Plan: Hba1c 6.1% in Mar 2024 controlled with novolog SSI (18) Blood per rectum: Plan: resolved 2nd small hemorrhoids? (vs fissure I could not see?) either way it is anal outlet -- doubt diverticulosis Given anusol suppositories BID starting 05/19 and have been stopped. Hgb stable however suspect some dilutional aspect from volume overload/monitor CBC (19) PAD (peripheral artery disease): Plan: biphasic waveforms on LLE proximal vessels, monophasic waveforms on distal vessels LEFT FOOT/toes have dusky appearance, foot is cool, and cap refill is delayed especially the 3rd/4th/5th toes ideally should be on antiplatelet agents and statin but both contraindicated right now due to abnormal LFTs and low platelets Prior provider spoke with Dr Tolentino and consult placed. See note 3, has three vessel runoff/no acute intervention planned and can have outpt f/u. Notify sooner of any worsening. Plan VTE prophylaxis - heparin has been discontinued and eliquis 2.5mg BID resumed for this evening Dispo: continued inpatient stay, s/p ablation this morning and moved to monitored bed. Remains NSR. HD planned for 05/26 (epo/venofer ordered by nephrology for AM). If stable telemetry overnight likely can downgrade again tomorrow pending eval. Updated and son at bedside / Continued PT/OT, eventual [facility] at discharge planned. Timing uncertain given course at this time but hopefully within the next week pending afib/HR/telemetry and HD. Admission and Anticipated Discharge Date Admission Date: April 28, 2024 Supervising Physician Co-Signing Physician Notes The patient was not seen by me. The chart was reviewed. Case discussed with DENNIS Schulte. Agree with assessment and plan Subjective Eval this afternoon, and son in room. Underwent AV ablation this morning, back in NSR, rates 80-90s. Reports feeling better since. Had some nausea but no vomiting, just got zofran about 30 minutes ago. Discussed continued monitoring on telemetry overnight but if stable likely can dc tele in AM. Reports seen Dr Tolentino this morning and no intervention now but maybe in the future. Sensation intact but cool/dusky appearance, b/l LE pitting edema. Discussed to alert of any decreased sensation/lack thereof. Heparin gtt to discontinue, eliquis to resume tonight. Does NOT make urine, no bumex. On midodrine for BP support, HD for tomorrow and hopefully able to pull off more fluid back in SR. Waiting eventual rehab at [facility]. No CP, breathing stable/on supplemental O2. Bowels moving, twice daily. To alert for any increased diarrhea. Family updated at bedside. Physical Exam Physical Exam: gen - morbidly obese, NAD, sitting upright in bed, family at bedside, some nausea/no vomiting, just received dose zofran, scattered bruising/ecchymosis mouth - MMM, no thrush neck - no JVD chest: pacemaker site to L chest, ecchymosis/petechiae but no hematoma present heart - NSR on telemetry, rates 80-90s, +systolic murmur LSB, b/l LE pitting edema 2+ to feet, 1-2+ to legs, decreased cap refill decreased lungs - CTA b/l; no rales; no wheezes; minimally decreased BS bases , on NC supplementation abd - soft NT ND BS+; reducible chioma-umbilical hernia unchanged ext - 2+ pitting edema feet; <1+ pitting edema of shins; pulses R foot 1-2+; left foot pulses 1+ at best; left popliteal pulse 1-2+; left foot remains cold - similar to prior exams; right foot is mildly warm; cap refill left foot despite the cold foot is 2 seconds for the 1st/2nd toes, but prolonged for the 3rd/4th/5th toes - worst is the 5th toe; right foot 1-2 sec cap refill; all toes L foot are mildly dusky in appearance - but unchanged from all prior exams psych - a/o x 3 skin - numerous optifoams b/l arms; pacemaker site left upper chest covered with steri strips; ecchymoses and petechiae present left upper chest; no hematoma present Results & Data Results & Data Vital Signs (Past 12 Hours) Vital Signs Temp Pulse Pulse Pulse Pulse Pulse Resp 05/25/24 13:30 90 05/25/24 13:00 91 H 05/25/24 12:43 89 05/25/24 12:30 103 H 05/25/24 11:30 90 14 05/25/24 11:00 94 H 14 05/25/24 10:30 90 14 05/25/24 10:15 90 14 05/25/24 10:00 88 14 05/25/24 09:45 93 H 93 H 14 05/25/24 07:52 111 H 14 05/24/24 19:30 05/24/24 19:07 36.6 C 106 H 16 05/24/24 17:00 118 H 05/24/24 15:16 36.4 C L 114 H 16 05/24/24 15:15 36.3 C L 115 H 05/24/24 14:46 110 H 05/24/24 14:30 102 H 05/24/24 14:15 107 H BP BP Pulse Ox O2 Del Method O2 Flow Rate 05/25/24 13:30 111/77 05/25/24 13:00 102/70 05/25/24 12:43 05/25/24 12:30 102/73 05/25/24 11:30 125/79 100 Nasal Cannula 4 05/25/24 11:00 112/87 100 Nasal Cannula 4 05/25/24 10:30 108/72 100 Nasal Cannula 4 05/25/24 10:15 104/72 100 Nasal Cannula 4 05/25/24 10:00 100/58 L 100 Nasal Cannula 4 05/25/24 09:45 89/68 L 100 Nasal Cannula 4 05/25/24 07:52 114/88 100 Nasal Cannula 4 05/24/24 19:30 Nasal Cannula, CPAP 3 05/24/24 19:07 103/67 98 Nasal Cannula 3 05/24/24 17:00 107/73 05/24/24 15:16 89/64 L 100 Nasal Cannula 3 05/24/24 15:15 97/69 L 05/24/24 14:46 82/31 L 05/24/24 14:30 89/69 L 05/24/24 14:15 87/57 L Intake and Output 03/03/25 03/04/25 03/04/25 22:59 06:59 14:59 Intake Total 74.667 / 74.667 301.333 / 301.333 Output Total Balance 73.667 / 72.667 -1 / 72.667 301.333 / 301.333 Intake: IV 74.667 / 74.667 301.333 / 301.333 Heparin 90685 Unit/500 ml D5w 74.667 / 74.667 301.333 / 301.333 25,000 units In 500 ml @ 1,000 UNITS/HR 20 mls/hr IV .Q24H GURU Rx#:[id number] Output: # Bowel Movements Other: Hemodialysis Ultrafiltration 1,910 Amount Laboratory Results Bone Marrow Biopsy w/ CT 05/24/24 08:00 CT guided bone marrow biopsy INDICATION: Thrombocytopenia PROCEDURE: Procedure and risks were explained. Informed consent was obtained. A final timeout was completed. The patient was placed prone in a decubitus position and the CT exam table. The right gluteal region was prepped and draped in sterile fashion. 1% lidocaine was utilized for skin anesthesia. Utilizing CT guidance, an 11-gauge bone biopsy needle was advanced into the right iliac bone. Multiple aspirates and one bone core was obtained and given to the lab. The needle was removed and Band-Aid applied. The patient tolerated the procedure well. Vital signs will be monitored postprocedure. IMPRESSION: Bone marrow biopsy as above. Performed, dictated, and signed by Venancio Mendes PA-C; to be co-signed by Dr. Alex Garcia. Electronically signed by: Alex Garcia M.D. 05/24/2024 2:28 PM PG Care Time/CCT Total # of Minutes Spent Total Time Spent with Patient: Total time spent is greater than 50% in coordination of care (as documented) at patient's floor/unit and/or counseling patient: Coding Level of Care Code 18325 SUB INP/OBS CARE 3/50MIN Diagnoses Atrial fibrillation with rapid ventricular response I48.91 Thrombocytopenia D69.6 Laura Cobb virus infection B27.90 End stage renal disease on dialysis N18.6; Z99.2 Acute hypoxic respiratory failure J96.01 Weakness R53.1 Autoimmune hepatitis treated with steroids K75.4 Pneumonia J18.9 Rhinovirus B34.8 MARILEE (acute kidney injury) N17.9 Elevated troponin R79.89 SARAH (obstructive sleep apnea) G47.33 Hypothyroidism E03.9 Morbid obesity with BMI of 40.0-44.9, adult E66.01; Z68.41 Renal cell carcinoma C64.9 S/P TAVR (transcatheter aortic valve replacement) Z95.2 Prediabetes R73.03 Blood per rectum K62.5 PAD (peripheral artery disease) I73.9
--- NOTE | 2024-05-25 08:14 | History & Physical Bridge Note ---
Date of Service May 25, 2024 History & Physical Bridge Note I have examined the patient, reviewed the History & Physical and in the interval since the performance of the History & Physical I have noted the following changes of clinical significance: no changes noted. I reviewed the indications, procedure, risks and alternatives with the patient, and answered all questions. Patient understands and agrees to the procedure. Consent obtained. I also reviewed the risks and use of sedation, patient understands and consent obtained.
--- NOTE | 2024-05-25 08:15 | Pre Anesthesia Assessment ---
Date of Service May 25, 2024 Pre Sedation Assessment Vital Signs Temp Pulse Pulse Pulse Pulse Resp BP 05/25/24 07:52 111 H 14 05/24/24 19:30 05/24/24 19:07 36.6 C 106 H 16 05/24/24 17:00 118 H 05/24/24 15:16 36.4 C L 114 H 16 05/24/24 15:15 36.3 C L 115 H 05/24/24 14:46 110 H 82/31 L 05/24/24 14:30 102 H 89/69 L 05/24/24 14:15 107 H 87/57 L 05/24/24 14:00 105 H 88/60 L 05/24/24 13:50 103 H 97/74 L 05/24/24 13:40 102 H 88/58 L 05/24/24 13:30 101 H 83/61 L 05/24/24 13:00 106 H 93/67 L 05/24/24 12:30 108 H 96/63 L 05/24/24 12:00 106 H 103/61 05/24/24 11:30 109 H 120/87 05/24/24 11:20 93 H 107/80 05/24/24 11:00 36.3 C L 89 BP Pulse Ox O2 Del Method O2 Flow Rate 05/25/24 07:52 114/88 100 Nasal Cannula 4 05/24/24 19:30 Nasal Cannula, CPAP 3 05/24/24 19:07 103/67 98 Nasal Cannula 3 05/24/24 17:00 107/73 05/24/24 15:16 89/64 L 100 Nasal Cannula 3 05/24/24 15:15 97/69 L 05/24/24 14:46 05/24/24 14:30 05/24/24 14:15 05/24/24 14:00 05/24/24 13:50 05/24/24 13:40 05/24/24 13:30 05/24/24 13:00 05/24/24 12:30 05/24/24 12:00 05/24/24 11:30 05/24/24 11:20 05/24/24 11:00 Cardiovascular + irregularly irregular Respiratory normal respiratory effort, lungs clear to auscultation Pre-Sedation Airway Assessment Smoking Status: Never smoker Hx Sleep Apnea: No Hx Difficult Intubation: No Short, Thick Neck: No Thyromental Distance: > or= 3.5 Finger Breadths Oral Cavity: + Dental Abnormalities Mallampati Class: IV ASA: ASA3 NPO Status Date of Last Intake of Fluids: 05/24/24 Time of Last Intake of Fluids: 18:00 Date of Last Intake of Solid Food: 05/25/24 Time of Last Intake of Solid Foods: 18:00 Procedure Planning Contraindications for Sedation: none Current Medications Reviewed: Yes Notes The planned sedation has been discussed with the patient. Informed Consent was obtained. I have identified the patient, determined the appropriateness of sedation and have assessed the patient immediately prior to the procedure. All medicine(s) and interventions are by my order.
[2024-05-25 08:23] LABS: Magnesium 2.5 mg/dl (1.7-2.4)
--- NOTE | 2024-05-25 09:00 | Nephrology Progress Note ---
Date of Service May 25, 2024 Assessment & Plan (1) End stage renal disease on dialysis: Plan: * Outpatient orders: [facility] [place] MWF 3.5hr F-180NR 3K 2.5Ca Na140 HCO3 34 EDW 157kg * Patient was last dialyzed 05/24/24 for 1.9 L UF * Patient will need outpatient HD EDW adjusted following hospitalization * Will schedule next HD for am * Continue dietary sodium restriction. Maintain daily 1.5 L fluid limit. * Monitor BMP, I&O, wt (2) Anemia: Plan: * Will provide IV Venofer and SCOTT w/ HD * Awaiting bone marrow biopsy results (3) Atrial fibrillation: Plan: * AV maggie ablation and pacemaker placement on 05/13/2024. * Anticoagulated with Eliquis * Repeat EP study 05/25/24 (4) Weakness: Plan: * Continue PT * Transfer to [facility] for ongoing PT once bed available (5) Renal cell carcinoma: Admission and Anticipated Discharge Date Admission Date: April 28, 2024 Subjective Mr. Guadalupe was evaluated in his hospital room this morning. He remains very weak states that he is slowly making progress with physical therapy. He was awaiting EP study this am. HD last completed 05/24/24 for 1.9 L UF without complication Review of Systems Constitutional: no fever Eyes: no problem reported Ear, Nose, Mouth, Throat: no problem reported Respiratory: no dyspnea Cardiovascular: no chest pain Gastrointestinal: no abdominal pain, no nausea, no vomiting and no diarrhea/loose stools Integumentary: no rash Physical Exam Constitutional: not in distress Eyes: PERRL, conjunctivae normal, anicteric sclerae ENMT: external ear and nose normal, oropharynx normal Neck: trachea midline, no thyromegaly (IJ TCC w/ clean dry dressing) Respiratory: normal respiratory effort Auscultation: lungs clear to auscultation bilaterally Cardiovascular: RRR, no murmur, no edema Rate/Rhythm: + tachycardic and + irregularly irregular Extremities: + edema (2+ peripheral edema) Gastrointestinal (Abdomen): normal bowel sounds, soft, nontender, no hepatosplenomegaly Musculoskeletal: Extremities: no cyanosis Skin: no rashes, warm and dry Neurologic: awake; not confused Speech / Cognition: normal speech and normal cognition Results & Data Vital Signs (Past 12 Hours) Vital Signs Pulse Resp BP Pulse Ox O2 Del Method O2 Flow Rate 05/25/24 07:52 111 H 14 114/88 100 Nasal Cannula 4 Laboratory Results Laboratory Results - last 24 hr 05/22/24 05/24/24 05/24/24 05:26 07:52 07:52 WBC Cancelled 6.92 RBC Cancelled Hgb Hct MCV MCH MCHC RDW Std Deviation RDW Coeff of Nick Plt Count MPV Immature Gran % (Auto) Neut % (Auto) Lymph % (Auto) Collin % (Auto) Eos % (Auto) Baso % (Auto) Neut # (Auto) Lymph # (Auto) Collin # (Auto) Eos # (Auto) Baso # (Auto) Immature Gran # (Auto) Absolute Nucleated RBC Nucleated RBC % (auto) Platelet Estimate Polychromasia Anisocytosis Heparin Anti-Xa, Unfract Sodium Potassium Chloride Carbon Dioxide Anion Gap BUN Creatinine Est Cr Clr Drug Dosing eGFR BUN/Creatinine Ratio Glucose POC Glucose Calcium Magnesium Total Bilirubin AST ALT Alkaline Phosphatase Total Protein Albumin Globulin Albumin/Globulin Ratio EBV Source Whole Blood EBV DNA, Quant 2.89 H EBV DNA (PCR) 780 H BM Chromosome Analysis Flow Cytometry Comment [facility] 05/24/24 05/24/24 05/24/24 07:52 07:52 07:52 WBC RBC 2.95 L Hgb Cancelled 8.2 L Hct Cancelled 28.1 L MCV Cancelled MCH MCHC RDW Std Deviation RDW Coeff of Nick Plt Count MPV Immature Gran % (Auto) Neut % (Auto) Lymph % (Auto) Collin % (Auto) Eos % (Auto) Baso % (Auto) Neut # (Auto) Lymph # (Auto) Collin # (Auto) Eos # (Auto) Baso # (Auto) Immature Gran # (Auto) Absolute Nucleated RBC Nucleated RBC % (auto) Platelet Estimate Polychromasia Anisocytosis Heparin Anti-Xa, Unfract Sodium Potassium Chloride Carbon Dioxide Anion Gap BUN Creatinine Est Cr Clr Drug Dosing eGFR BUN/Creatinine Ratio Glucose POC Glucose Calcium Magnesium Total Bilirubin AST ALT Alkaline Phosphatase Total Protein Albumin Globulin Albumin/Globulin Ratio EBV Source EBV DNA, Quant EBV DNA (PCR) BM Chromosome Analysis Flow Cytometry Comment [facility] 05/24/24 05/24/24 05/24/24 07:52 07:52 07:52 WBC RBC Hgb Hct MCV 95.3 MCH Cancelled 27.8 MCHC Cancelled 29.2 L RDW Std Deviation Cancelled RDW Coeff of Nick Plt Count MPV Immature Gran % (Auto) Neut % (Auto) Lymph % (Auto) Collin % (Auto) Eos % (Auto) Baso % (Auto) Neut # (Auto) Lymph # (Auto) Collin # (Auto) Eos # (Auto) Baso # (Auto) Immature Gran # (Auto) Absolute Nucleated RBC Nucleated RBC % (auto) Platelet Estimate Polychromasia Anisocytosis Heparin Anti-Xa, Unfract Sodium Potassium Chloride Carbon Dioxide Anion Gap BUN Creatinine Est Cr Clr Drug Dosing eGFR BUN/Creatinine Ratio Glucose POC Glucose Calcium Magnesium Total Bilirubin AST ALT Alkaline Phosphatase Total Protein Albumin Globulin Albumin/Globulin Ratio EBV Source EBV DNA, Quant EBV DNA (PCR) BM Chromosome Analysis Flow Cytometry Comment [facility] 05/24/24 05/24/24 05/24/24 07:52 07:52 07:52 WBC RBC Hgb Hct MCV MCH MCHC RDW Std Deviation 99.5 H RDW Coeff of Nick Cancelled 30.0 H Plt Count Cancelled 49 L MPV Cancelled Immature Gran % (Auto) 2.2 Neut % (Auto) 81.5 Lymph % (Auto) 11.1 Collin % (Auto) 4.8 Eos % (Auto) 0.1 Baso % (Auto) 0.3 Neut # (Auto) 5.64 Lymph # (Auto) 0.77 L Collin # (Auto) 0.33 Eos # (Auto) 0.01 Baso # (Auto) 0.02 Immature Gran # (Auto) 0.15 Absolute Nucleated RBC Cancelled Nucleated RBC % (auto) Platelet Estimate Polychromasia Anisocytosis Heparin Anti-Xa, Unfract Sodium Potassium Chloride Carbon Dioxide Anion Gap BUN Creatinine Est Cr Clr Drug Dosing eGFR BUN/Creatinine Ratio Glucose POC Glucose Calcium Magnesium Total Bilirubin AST ALT Alkaline Phosphatase Total Protein Albumin Globulin Albumin/Globulin Ratio EBV Source EBV DNA, Quant EBV DNA (PCR) BM Chromosome Analysis Flow Cytometry Comment [facility] 05/24/24 05/24/24 05/24/24 07:52 07:52 10:45 WBC RBC Hgb Hct MCV MCH MCHC RDW Std Deviation RDW Coeff of Nick Plt Count MPV Immature Gran % (Auto) Neut % (Auto) Lymph % (Auto) Collin % (Auto) Eos % (Auto) Baso % (Auto) Neut # (Auto) Lymph # (Auto) Collin # (Auto) Eos # (Auto) Baso # (Auto) Immature Gran # (Auto) Absolute Nucleated RBC 0.36 H Nucleated RBC % (auto) Cancelled 5.2 Platelet Estimate Cancelled Polychromasia 2+ Anisocytosis Present Heparin Anti-Xa, Unfract Sodium Potassium Chloride Carbon Dioxide Anion Gap BUN Creatinine Est Cr Clr Drug Dosing eGFR BUN/Creatinine Ratio Glucose POC Glucose Calcium Magnesium Total Bilirubin AST ALT Alkaline Phosphatase Total Protein Albumin Globulin Albumin/Globulin Ratio EBV Source EBV DNA, Quant EBV DNA (PCR) BM Chromosome Analysis Pending Flow Cytometry Comment Pending [facility] Pending 05/24/24 05/24/24 05/25/24 15:44 23:41 05:39 WBC 7.15 RBC 3.21 L Hgb 8.9 L Hct 31.1 L MCV 96.9 MCH 27.7 MCHC 28.6 L RDW Std Deviation 103.6 H RDW Coeff of Nick 30.5 H Plt Count 44 L MPV Immature Gran % (Auto) Neut % (Auto) Lymph % (Auto) Collin % (Auto) Eos % (Auto) Baso % (Auto) Neut # (Auto) Lymph # (Auto) Collin # (Auto) Eos # (Auto) Baso # (Auto) Immature Gran # (Auto) Absolute Nucleated RBC 0.98 H Nucleated RBC % (auto) 13.7 Platelet Estimate Decreased L Polychromasia Anisocytosis Heparin Anti-Xa, Unfract 0.49 Sodium 134 L Potassium 4.4 Chloride 98 Carbon Dioxide 25 Anion Gap 11 BUN 56 H D Creatinine 4.37 H D Est Cr Clr Drug Dosing 23.9 eGFR 13.80 BUN/Creatinine Ratio 12.8 Glucose 106 H POC Glucose 111 H 110 H Calcium 9.6 Magnesium 2.5 H Total Bilirubin 3.0 H AST 48 H ALT 21 Alkaline Phosphatase 248 H Total Protein 5.0 L Albumin 3.0 L Globulin 2.0 L Albumin/Globulin Ratio 1.5 EBV Source EBV DNA, Quant EBV DNA (PCR) BM Chromosome Analysis Flow Cytometry Comment [facility] 05/25/24 05:58 WBC RBC Hgb Hct MCV MCH MCHC RDW Std Deviation RDW Coeff of Nick Plt Count MPV Immature Gran % (Auto) Neut % (Auto) Lymph % (Auto) Collin % (Auto) Eos % (Auto) Baso % (Auto) Neut # (Auto) Lymph # (Auto) Collin # (Auto) Eos # (Auto) Baso # (Auto) Immature Gran # (Auto) Absolute Nucleated RBC Nucleated RBC % (auto) Platelet Estimate Polychromasia Anisocytosis Heparin Anti-Xa, Unfract Sodium Potassium Chloride Carbon Dioxide Anion Gap BUN Creatinine Est Cr Clr Drug Dosing eGFR BUN/Creatinine Ratio Glucose POC Glucose 108 H Calcium Magnesium Total Bilirubin AST ALT Alkaline Phosphatase Total Protein Albumin Globulin Albumin/Globulin Ratio EBV Source EBV DNA, Quant EBV DNA (PCR) BM Chromosome Analysis Flow Cytometry Comment [facility] Path[facility] Test PG Care Time/CCT Total # of Minutes Spent Total Time Spent with Patient: Total time spent is greater than 50% in coordination of care (as documented) at patient's floor/unit and/or counseling patient: Coding Level of Care Code 15723 SUB INP/OBS CARE 3/50MIN Diagnoses End stage renal disease on dialysis N18.6; Z99.2 Anemia D64.9 Atrial fibrillation I48.91 Atrial fibrillation type: unspecified Weakness R53.1 Renal cell carcinoma C64.9 (3) Atrial fibrillation Atrial fibrillation type: unspecified Qualified Code(s): I48.91 - Unspecified atrial fibrillation
--- NOTE | 2024-05-25 09:14 | Electrophysiology Report ---
Date of Service May 25, 2024 Electrophysiology Procedure Electrophysiology Procedure Report The patient was brought to the laboratory being n.p.o. after midnight, identified in the laboratory and prepped and draped in standard sterile manner for an AV node ablation. The pacemaker was programmed to a VVI mode of 40 beats. The right groin was anesthetized with lidocaine local anesthetic and an SR 0 ablation sheath was advanced over guidewire into the right atrium. An ablation catheter was advanced through the sheath to the AV junction. Mapping of the region was performed to identify the His location using the ablation catheter. Ablation was performed using a temperature controlled system with a setting of 70 W maximum and 55 C maximum and a duration of 60 seconds. 3 ablation applications were used. During the first application complete heart block ensued quickly and remained throughout the procedure. He was observed for 30 minutes following the energy application with no return of AV conduction. After the ablation the catheter was removed, the sheath was removed and venous pressure was applied. The catheter site was bandaged. The device was programmed back to initial settings. [facility] [place]rophysiology codes Indication for Procedure (1) Atrial fibrillation with rapid ventricular response: EP Procedure 1: Electrophysiology: 06955 Bundle of His recording Procedure 2: Electrophysiology: 86533 Ablation AV Node w/wo pace Pacing Procedure 1: Pacin Pacer single program PG Moderate Sedation Codes Moderate Sedation Codes Procedure 1: Sedation/Anesthesia: 63977 Mod Sedation by the same physician;Init15 Min Child Age 5 & Up Procedure 2: Sedation/Anesthesia: 97511 Mod Sedation by the same physician; Ea [id number] Minutes
[2024-05-25] MEDS: fentaNYL citrate PF 100 MCG/2 ML VIAL ONE (09:58)
[2024-05-25] MEDS: MIDAZOLAM HCL 5 MG/ML 1 ML VIAL ONE (09:59)
--- NOTE | 2024-05-25 10:58 | Post Anesthesia Assessment ---
Date of Service May 25, 2024 Post Sedation Assessment Vital Signs Temp Pulse Pulse Pulse Pulse Pulse Resp 05/25/24 10:30 90 14 05/25/24 10:15 90 14 05/25/24 10:00 88 14 05/25/24 09:45 93 H 93 H 14 05/25/24 07:52 111 H 14 05/24/24 19:30 05/24/24 19:07 36.6 C 106 H 16 05/24/24 17:00 118 H 05/24/24 15:16 36.4 C L 114 H 16 05/24/24 15:15 36.3 C L 115 H 05/24/24 14:46 110 H 05/24/24 14:30 102 H 05/24/24 14:15 107 H 05/24/24 14:00 105 H 05/24/24 13:50 103 H 05/24/24 13:40 102 H 05/24/24 13:30 101 H 05/24/24 13:00 106 H 05/24/24 12:30 108 H 05/24/24 12:00 106 H 05/24/24 11:30 109 H 05/24/24 11:20 93 H 05/24/24 11:00 36.3 C L 89 BP BP Pulse Ox O2 Del Method O2 Flow Rate 05/25/24 10:30 108/72 100 Nasal Cannula 4 05/25/24 10:15 104/72 100 Nasal Cannula 4 05/25/24 10:00 100/58 L 100 Nasal Cannula 4 05/25/24 09:45 89/68 L 100 Nasal Cannula 4 05/25/24 07:52 114/88 100 Nasal Cannula 4 05/24/24 19:30 Nasal Cannula, CPAP 3 05/24/24 19:07 103/67 98 Nasal Cannula 3 05/24/24 17:00 107/73 05/24/24 15:16 89/64 L 100 Nasal Cannula 3 05/24/24 15:15 97/69 L 05/24/24 14:46 82/31 L 05/24/24 14:30 89/69 L 05/24/24 14:15 87/57 L 05/24/24 14:00 88/60 L 05/24/24 13:50 97/74 L 05/24/24 13:40 88/58 L 05/24/24 13:30 83/61 L 05/24/24 13:00 93/67 L 05/24/24 12:30 96/63 L 05/24/24 12:00 103/61 05/24/24 11:30 120/87 05/24/24 11:20 107/80 05/24/24 11:00 Recovery Score Activity: Moves 4 extremities Respiration: Deep Breath/Cough Circulation: +/-20% PreAnes Value Consciousness: Fully Awake Oxygen Saturation: > 92% On Room Air Post Anesthesia Score: 10 Discharge Sedation Level of Care: Fast Track Phase II Post Sedation Plan On clinical assessment, the patient appears to have tolerated the sedation without complications. Patient is recovering as anticipated. Patient will continue to be monitored by nursing and may be discharged when sedation discharge criteria are met per below protocol. Upon Completions of procedure up to 15 minutes continue every 5 minute vital signs and the P.A.R. score; then discharge to a Phase I or Fast Track to Phase II per the following guidelines: * Discharge Patient to appropriate Phase II area if PAR is 8 or greater or return to pre- procedure baseline. The post - procedure orders will be as directed. * If PAR score is less than 8 or not return to pre-procedure baseline then patient will follow Phase I monitoring till PAR is reached for Phase II. The Phase I may be done in procedure room or may call to secure a Phase I area. * If naloxone or flumazenil are used for reversal, hold in Phase I for continued monitoring from when last reversal dose was given for a minimum of 60 minutes or longer pending the nurse and/or physician discretion of patient condition before discharge to Phase II. Please call the Sedation Physician to re-evaluate and complete post-note for discharge to Phase II area. Do NOT discharge from procedure sedation or Phase 1 until post- sedation evaluation note is complete by procedure /sedation MD Sedation Discharge Instructions to be given to the patient at discharge to home.
[2024-05-25] MEDS: ONDANSETRON INJ 2 MG/ML 2 ML VIAL IV PRN (13:45)
[2024-05-25] MEDS ORDERED: Nursing to Pharmacy Communication SCH (15:00)
--- NOTE | 2024-05-25 16:10 | Vascular Medicine Consultation ---
Date of Consultation May 25, 2024 Assessment & Plan (1) PAD (peripheral artery disease): Reviewed patient's recent arterial duplex. No evidence of significant arterial disease above the knee on the left. Does have evidence of tibial artery disease but appears to have three-vessel runoff extending into the foot. On exam pulses diminished but does appear to have borderline capillary refill and distal left leg appears reasonably perfused. No rest pain or active ulcers. At this point feel below the knee arterial disease can be managed conservatively. No clear benefit from attempted revascularization and with patient's medical issues further invasive testing elevated risk. If more clear evidence of limb threatening CLI going forward can revisit need for angiogram. For now vascular medicine will sign off. Please contact if any questions. History of Present Illness Attending Physician: Jhon Diego MD History of Present Illness Mr. Guadalupe is a very pleasant 68-year-old man seen today due to suspected lower extremity PAD. He has a complex past and recent medical history. History of metastatic renal cancer on Opdivo post right nephrectomy now with end-stage renal disease on dialysis, aortic stenosis post TAVR and permanent atrial fibrillation now post AV maggie ablation and pacemaker. Has had prolonged hospitalizations over March/April complicated by multifactorial respiratory failure, profound thrombocytopenia, anemia, EBV infection. Also with generalized weakness, now basically nonambulatory. His hospital is noted that his left foot was more cool, dusky over the last few days. Patient denies any lower extremity leg pain. He reports longstanding pedal edema for months. He previously had pressure heel ulcers which have healed. No prior vascular intervention. Had arterial duplex 05/22/2024 which showed widely patent SFA/popliteal with multiphasic waveforms. Diminished monophasic infrapopliteal vessels. Allergies Allergy/AdvReac Type Severity Reaction Status Date / Time No Known Allergies Allergy Verified 04/28/24 19:55 Home Medications Medication Instructions Recorded Confirmed Type multivitamin 1 tab PO DAILY 11/11/18 04/28/24 History cholecalciferol (vitamin D3) 50 2,000 unit PO DAILY #30 tabs 10/15/22 04/28/24 History mcg (2,000 unit) tablet amoxicillin 500 mg capsule 2,000 mg PO DIRECTED PRN 1 HR 07/07/23 04/28/24 History PRIOR TO DENTAL APPT. betamethasone, augmented 0.05 % 1 applic topical BID PRN Skin 07/07/23 04/28/24 History topical cream Irritation levothyroxine 200 mcg tablet 200 mcg PO QAM 08/21/23 04/28/24 History ferrous sulfate 325 mg (65 mg 325 mg PO DAILY 11/05/23 04/28/24 History iron) tablet (iron) pantoprazole 40 mg tablet,delayed 40 mg PO QAM 11/17/23 04/28/24 History release apixaban 2.5 mg tablet (Eliquis) 2.5 mg PO BID #60 tabs 04/19/24 04/28/24 Rx diltiazem HCl 30 mg tablet 30 mg PO Q6H #120 tabs 04/19/24 04/28/24 Rx metoprolol succinate 25 mg 75 mg (3 x 25 mg) PO QAM #90 tabs 04/19/24 04/28/24 Rx tablet,extended release 24 hr metoprolol succinate 50 mg 100 mg (2 x 50 mg) PO QPM #60 tabs 04/19/24 04/28/24 Rx tablet,extended release 24 hr prednisone 10 mg tablet See Taper PO DIRECTED #196 tabs 04/19/24 04/28/24 Rx vitamin B complex and vitamin C 1 cap PO QAM #30 caps 04/19/24 04/28/24 Rx no.20-folic acid 1 mg capsule (Renal Caps) midodrine 10 mg tablet 10 mg PO TID #30 tabs 04/27/24 04/28/24 Rx bumetanide 2 mg tablet 2 mg PO DAILY 04/28/24 04/28/24 History Patient History Medical History Atrial fibrillation SARAH (obstructive sleep apnea) Hypercholesterolemia Hypertension Hypothyroidism Acute GI bleeding 2nd duodenal ulcer - 2023 Coagulopathy Heart failure with preserved ejection fraction Renal cell carcinoma stage 4 CKD (chronic kidney disease) stage 4, GFR 15-29 ml/min Surgical History S/p nephrectomy right Family History Mother Cancer colon ca; age 76 Father CHF (congestive heart failure) age 78 Social History Smoking Status: Never smoker Do You Dip or Chew Tobacco: No; Hx Alcohol Use: No Hx Substance Use: No Preferred Language: Malagasy Communication Ability: Effective Property Field Inspector Required: No Beliefs That Will Affect Care: None marital status: Current Living Situation: Spouse Current Living Situation Comment: live in [facility] near [facility] current occupational status: retired 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 Diffuse ecchymosis/petechiae Eyes: Sclerae anicteric Lungs: Clear to auscultation bilaterally Cardiac: Irregular irregular Abdomen: Soft, nontender Neuro: Decree sensation to light touch in feet bilaterally Psych: Alert orient x3, normal affect and mood Extremities/Vascular: -- 2+ radial bilaterally --2+ pedal edema sparing toes Diminished DP pulses. Palpable PT pulses bilaterally Normal capillary refill bilaterally -- No lower extremity ulcerations. Results & Data Vital Signs (Past 12 Hours) Vital Signs Pulse Pulse Pulse Resp BP Pulse Ox O2 Del Method 05/25/24 15:06 Nasal Cannula 05/25/24 14:56 91 H 05/25/24 13:30 90 111/77 05/25/24 13:00 91 H 102/70 05/25/24 12:43 89 05/25/24 12:30 103 H 102/73 05/25/24 11:30 90 14 125/79 100 Nasal Cannula 05/25/24 11:00 94 H 14 112/87 100 Nasal Cannula 05/25/24 10:30 90 14 108/72 100 Nasal Cannula 05/25/24 10:15 90 14 104/72 100 Nasal Cannula 05/25/24 10:00 88 14 100/58 L 100 Nasal Cannula 05/25/24 09:45 93 H 93 H 14 89/68 L 100 Nasal Cannula 05/25/24 07:52 111 H 14 114/88 100 Nasal Cannula O2 Flow Rate 05/25/24 15:06 3 05/25/24 14:56 05/25/24 13:30 05/25/24 13:00 05/25/24 12:43 05/25/24 12:30 05/25/24 11:30 4 05/25/24 11:00 4 05/25/24 10:30 4 05/25/24 10:15 4 05/25/24 10:00 4 05/25/24 09:45 4 05/25/24 07:52 4 PG Care Time/CCT Total # of Minutes Spent Total Time Spent with Patient: Total time spent is greater than 50% in coordination of care (as documented) at patient's floor/unit and/or counseling patient: Coding Level of Care Code 68054 INT INP/OBS CARE 2MIN Diagnoses PAD (peripheral artery disease) I73.9
[2024-05-25] MEDS: INSULIN ASPART PER UNIT CHARGE SC SCH (18:17)
[2024-05-25 21:08] LABS: CMV IgG Antibody <0.60 U/mL; CMV IgM Antibody <30.00 AU/mL; Parvovirus IgM 0.5 (<0.9)
[2024-05-26 07:04] LABS: Hematocrit (blood only) 31.8 % (42.0-52.0); Hemoglobin 9.2 g/dl (14.0-18.0); Mean Corpuscular Hemoglobin 27.8 pg (25.0-34.0); Mean Corpuscular Hgb Conc 28.9 g/dL (32.0-36.0); Mean Corpuscular Volume 96.1 fL (80.0-100.0); Nucleated RBC # (auto) 0.47 K/uL (0.00-0.12); Nucleated RBC % (auto) 5.2 %; Platelet Count 52 K/uL (130-400); RDW Coefficient of Variation 30.5 % (11.5-14.5); RDW Standard Deviation 100.9 fL (36.4-46.3); Red Blood Count 3.31 M/uL (4.70-6.10); White Blood Count 9.03 K/ul (4.8-10.8)
--- NOTE | 2024-05-26 08:31 | Hospitalist Progress Note ---
Date of Service May 26, 2024 Assessment & Plan (1) Atrial fibrillation with rapid ventricular response: Plan: chronic, long-standing permanent a.fib -followed by outside cardiology near [place] Early in admission had had poor rate control despite meto succ BID + cardizem CD 120mg HS and on chronic eliquis 2.5mg BID for AC (held last week for procedures/heparin gtt) Was poor candidate for amio w/ abn LFTs and autoimmune hepatitis, prior cardioversion in past no successful and cardiology consulted and pacemaker/AV ablation planned given hypotension precluded use of higher doses AV maggie agents s/p AV node ablation with permanent pacemaker insertion on 05/13/[address] Mitchell - had been pacing around the clock (pacer dependent due to AV node ablation) however starting 05/21 became tachycardic and unfortunately converted back to rapid afib indicating residual AV node function and Dr Kyle saw over the past weeked and added metoprolol 50mg BID but no response/just hypotension and recs for repeat AV maggie ablation s/p ablation with Dr Kyle on 05/25 Remains paced on monitor, rates controlled and cardiology following/appreciate recs/assistance (see note, discussed w/ cards and ok to downgrade off telemetry which I will do this evening) Heparin gtt discontinued following ablation and eliquis 2.5mg BID resumed PM 05/25 Has been able to titrate from 4L to 2L NC, breathing improved and BPs improved and attempting HD today for more volume status and hopefully able to pull more off -HD note reports UF for 2,052cc, BP 116/77 following HD. Was provided Venofer/EPO to note Continue CPAP HS/NC during day (has machine in room/using) Dr Tolentino consulted/saw 05/25 (see note -outpt f/u eventual intervention but not at current time. 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 Can reach out if any clear evidence for limb threatening CLI going forward and can Eventual plan for [facility] Titrate O2 as able, continue HD per nephrology (2) Thrombocytopenia: Plan: IMPROVING finally -- lowest ~30 and was 49 but 34 on heparin gtt which has been discontinued and back on eliquis BID and platelets up to 52! B12/folate wnl. Peripheral smear without suggestion TTP/HUS, no evidence for DIC. ?2nd to Opdivo, liver dysfunction ?2nd to possible EBV infection given EBV PCR returned POSITIVE CMV, parvovirus titers pending s/p bone marrow biopsy 05/24-- BM chromosome analysis/flow cytometry/pathology pending CBC in AM (3) Laura Cobb virus infection: Plan: EBV titers were positive for IgM indicating current or recent infection EBV PCR returned POSITIVE 05/24 -either this could be a primary infection OR re- activation in the setting of immunosuppression Do believe EBV infection could be contributing to hepatitis, low platelets, extreme fatigue, etc. no Rx - supportive care (4) End stage renal disease on dialysis: Plan: 68yo male - recent initiation of dialysis (M/W/F) for development of ESRD 03/2024, solitary kidney status (previous right nephrectomy for renal cell ca), A-fib, stage 4 renal cell cancer previously on Opdivo, HTN, hypercholesterolemia, hypothyroidism, and SARAH. Presented 04/28/24 with b/l leg weakness. BioFire positive for entero- /rhinovirus. CXR with pulmonary edema and new bilateral basilar infiltrates with small pleural effusions. Had had 9 serial HD sessions due to severe volume overload earlier in the admission. Last week required 4 sessions. Maintained on M/W/F w/ stable pulm status exception w/ rapid afib above which is improved w/ repeat ablation Midodrine for BP support o prevent intra-HD hypotension. Oliguric/no bumex use Suspect that some of his LE edema is chronic lymphedema (pt/ state he has had edema "for years"). Volume status MARKEDLY improved since admission. HD for 05/26 for ~2L and appreciate ongoing nephrology assistance and plan for ongoing HD at [facility] at discharge. (5) Acute hypoxic respiratory failure: Plan: stable on NC O2 at baseline but up to 4L w/ afib RVR but improved and titrated back to 2L. multifactorial - pulmonary edema from ESRD status (and potentially liver dysfunction & cardiac issues), rhinovirus infection, +/- pneumonia, afib/RVR and PNA/rhinovirus resolved and continues on HD for volume control CPAP w/ sleeping, O2 NC during day (6) Weakness: Plan: IMPROVING especially his hip proximal muscles -- deconditioning is the main culprit more than likely, although cannot rule out a steroid myopathy given long standing use B1, B12 wnl, CPK wnl Suspect possible acute mono or subacute mono likely contributing --> see above Continues with therapy while inpatient w/ plans for INTENSIVE rehab post-dc which he should get at [facility] -lumbar spine issue cannot be ruled out but less likely (no paresthesias or radicular pain of legs) (7) Autoimmune hepatitis treated with steroids: Plan: autoimmune hepatitis diagnosed July 2023 secondary to immunotherapy for renal cell ca and has been on chronic steroids since that time --> During [place] stay was on burst for this issues as well as concern immunotherapy contributing to his thrombocytopenia hepatitis - 2nd to Opdivo? 2nd to hepatic congestion from volume overload? combination of factors? EBV IgM returned POSITIVE EBV PCR also positive indicating acute or subacute infection (or re-activation) This could be contributing to hepatitis & low platelets CMV & parvovirus titers pending HepA, HepB, and HepC ab's were NEGATIVE in 06/2023 LFTs remain mildly high despite steroids , ammonia wnl Initially was on 70mg/day weaning q7d by 10mg increments --> Down to prednisone 20mg daily starting for 05/26 --> Continue PJP prophy until prednisone is <20mg/day; use SS tmp/sulfa 1 tab M/W/F at HS for prophylaxis K levels wnl Obtained formal GI consult to ensure nothing else is causing the liver dysfunction - they agree that it is likely due to immunotherapy/autoimmune +/- right heart failure/passive congestion (8) Pneumonia: Plan: b/l basilar -- resolved could have been viral pneumonia 2nd to rhinovirus vs bacterial superinfection Has completed 7+ days IV/PO abx and remains on Bactrim for PJP proph as above (9) Renal cell carcinoma: Plan: stage 4 h/o right nephrectomy due to RCC follows with Dr Grijalva - cancer care clinic remaining left kidney has cysts vs masses on last imaging study - this bears watching (10) S/P TAVR (transcatheter aortic valve replacement): Plan: last echo with normal valve function (04/17) (11) Elevated troponin: Plan: peak HS trop 103 early in the admission without evidence for HENRY and suspected likely myocardial demand ischemia in setting volume overload from above/infection/pna/etc (12) PAD (peripheral artery disease): Plan: biphasic waveforms on LLE proximal vessels, monophasic waveforms on distal vessels LEFT FOOT/toes have dusky appearance, foot is cool, and cap refill is delayed especially the 3rd/4th/5th toes ideally should be on antiplatelet agents and statin but both contraindicated right now due to abnormal LFTs and low platelets Prior provider spoke with Dr Tolentino and consult placed. See note 05/25, has three vessel runoff/no acute intervention planned and can have outpt f/u. Notify sooner of any worsening. Plan Chronic conditions/resolved conditions: Hypothyroidism: TSH wnl and continues on usual Synthroid dosing Morbid Obesity: BMI 38- decreasing predisone/HD for volume, eventual rehab and wt loss encouraged as able Pre-DM: A1c 6.1 in March and well controlled w/ SSI while inaptient with ongoing steroid use for autoimmune hepatitis/other as above BRBPR: 2nd to hemorrhoids vs fissues unable to visualize however is anal outlet. doubtful diverticulosis and given anusol suppositories starting 05/19 and has been stable since stopping DVT proph: eliquis 2.5mg BID resumed/continued DIspo: continues inpatient stay/PT/OT and eventual rehab at [facility], hopefully this upcoming week Stable from ablation and HR controlled and ok per cards to downgrade this evening. s/p HD today and continues HD per nephro inpatient. Family/ updated at bedside 05/25, no one in room today but can update as needed WILL NEED MEDS EXTENDED THIS WEEK GIVEN ONGOING INPATIENT STAY Admission and Anticipated Discharge Date Admission Date: April 28, 2024 Supervising Physician Co-Signing Physician Notes The patient was not seen by me. The chart was reviewed. Case discussed with DENNIS Schulte. Agree with assessment and plan Subjective Evaluated this morning in HD, Dr Soto at bedside. Attempting to remove as much fluid as BP tolerates. Currently on 2L, breathing improved. No CP. Eating/drinking, some generalized discomfort but no nausea/vomiting. Moving bowels. Plt/hgb stable, chemistries pending. Reports not yet seen by cardiology, has been paced on monitor, possible downgrade off telemetry later today pending eval/continued telemetry through this morning. If remains stable over next day or two, can plan for auth for [facility] for eventual rehab. Physical Exam 2 Physical Exam: General: 68 yo male in bed, undergoing HD, Dr Soto at bedside, NAD and reports feeling better HEENT: head atraumatic, normocephalic, mmm, trachea midline, thick neck Chest: pacemaker to LEFT chest - ecchymosis/petechiae but no significant hematoma present CV: paced with PVCs, rates controlled, +systolic murmur LSB, bilateral pitting edema (worse in feet 2-3+, 2+ to legs), decreased cap refill but sensation intact Resp: diminished in the bases but no significant tachypnea/cough, no wheezing, on 2L NC this morning GI: +BS, slight distension but no overt tenderness, reducible chioma-umbilical hernia noted/no evidence for strangulation at this time Ext: b/l LE edema as noted to shins, pulses R foot 1-2+, L foot 1+ best, L pop pulses 1-2, L foot remains cold (slightly warmer today? no cellulitis/tenderness however toes remain dusky) Skin: numerous optifoams to arms, scattered bruising Psych: AOx3, cooperative and pleasant during encounter Results & Data Results & Data Vital Signs (Past 12 Hours) Vital Signs Temp Pulse Resp BP Pulse Ox O2 Del Method O2 Flow Rate 05/26/24 07:18 36.3 C L 89 20 119/66 96 Nasal Cannula 2.0 05/26/24 04:17 36.4 C L 91 H 20 103/70 95 BiPAP 4 05/25/24 23:13 36.4 C L 88 20 106/66 94 Nasal Cannula 2 Laboratory Results 05/26/24 05:38 05/26/24 05:38 TB 2.5 AST 51 ALP 262 Albumin 3.1 PG Care Time/CCT Total # of Minutes Spent Total Time Spent with Patient: Total time spent is greater than 50% in coordination of care (as documented) at patient's floor/unit and/or counseling patient: Coding Level of Care Code 86115 SUB INP/OBS CARE 3/50MIN Diagnoses Atrial fibrillation with rapid ventricular response I48.91 Thrombocytopenia D69.6 Laura Cobb virus infection B27.90 End stage renal disease on dialysis N18.6; Z99.2 Acute hypoxic respiratory failure J96.01 Weakness R53.1 Autoimmune hepatitis treated with steroids K75.4 Pneumonia J18.9 Renal cell carcinoma C64.9 S/P TAVR (transcatheter aortic valve replacement) Z95.2 Elevated troponin R79.89 PAD (peripheral artery disease) I73.9
--- NOTE | 2024-05-26 08:55 | Nephrology Progress Note ---
Date of Service May 26, 2024 Assessment & Plan (1) End stage renal disease on dialysis: Plan: * Outpatient orders: [facility] MWF 3.5hr F-180NR 3K 2.5Ca Na140 HCO3 34 EDW 157kg * Patient will need outpatient HD EDW adjusted following hospitalization * Will provide HD today and attempt 3 L UF. * Midodrine is provided prior to each treatment for BP support * Continue dietary sodium restriction. Maintain daily 1.5 L oral fluid limit * Monitor BMP, I&O, wt (2) Anemia: Plan: * Will provide IV Venofer and SCOTT w/ HD * Awaiting bone marrow biopsy results (3) Atrial fibrillation: Plan: * AV maggie ablation and pacemaker placement on 05/13/2024. * Repeat AVN ablation 05/25/24 * Anticoagulated with Eliquis (4) Weakness: Plan: * Continue PT * Transfer to [facility] for ongoing PT once bed available (5) Renal cell carcinoma: Admission and Anticipated Discharge Date Admission Date: April 28, 2024 Subjective Mr. Guadalupe was evaluated in his hospital room this morning. He underwent AVN ablation yesterday and is now pacer dependent. He currently denies fever, angina, dyspnea. He is awaiting HD and hopes to participate in PT this afternoon Review of Systems Constitutional: no fever Eyes: no problem reported Ear, Nose, Mouth, Throat: no problem reported Respiratory: no dyspnea Cardiovascular: no chest pain Gastrointestinal: no abdominal pain, no nausea, no vomiting and no diarrhea/loose stools Integumentary: no rash Physical Exam Constitutional: not in distress Eyes: PERRL, conjunctivae normal, anicteric sclerae ENMT: external ear and nose normal, oropharynx normal Neck: trachea midline, no thyromegaly (IJ TCC w/ clean dry dressing) Respiratory: normal respiratory effort Auscultation: lungs clear to auscultation bilaterally and + rales (bilaterally) Cardiovascular: RRR, no murmur, no edema Rate/Rhythm: regular rate and regular rhythm Extremities: + edema (2+ peripheral edema) Gastrointestinal (Abdomen): normal bowel sounds, soft, nontender, no hepatosplenomegaly Musculoskeletal: Extremities: no cyanosis Skin: no rashes, warm and dry Neurologic: awake; not confused Speech / Cognition: normal speech and normal cognition Results & Data Vital Signs (Past 12 Hours) Vital Signs Temp Pulse Resp BP Pulse Ox O2 Del Method O2 Flow Rate 05/26/24 07:18 36.3 C L 89 20 119/66 96 Nasal Cannula 2.0 05/26/24 04:17 36.4 C L 91 H 20 103/70 95 BiPAP 4 05/25/24 23:13 36.4 C L 88 20 106/66 94 Nasal Cannula 2 Laboratory Results Laboratory Results - last 24 hr 05/21/24 05/25/24 05/25/24 05:37 11:53 16:48 WBC RBC Hgb Hct MCV MCH MCHC RDW Std Deviation RDW Coeff of Nick Plt Count Absolute Nucleated RBC Nucleated RBC % (auto) Sodium Potassium Chloride Carbon Dioxide Anion Gap BUN Creatinine Est Cr Clr Drug Dosing eGFR BUN/Creatinine Ratio Glucose POC Glucose 102 H 162 H Calcium Magnesium Total Bilirubin AST ALT Alkaline Phosphatase Total Protein Albumin Globulin Albumin/Globulin Ratio CMV IgM Ab <30.00 CMV IgG Ab/TORCH <0.60 Parvovirus IgG Ab Index 0.3 Parvovirus IgM Ab Index 0.5 05/25/24 05/26/24 05/26/24 20:23 05:38 07:16 WBC 9.03 RBC 3.31 L Hgb 9.2 L Hct 31.8 L MCV 96.1 MCH 27.8 MCHC 28.9 L RDW Std Deviation 100.9 H RDW Coeff of Nick 30.5 H Plt Count 52 L Absolute Nucleated RBC 0.47 H Nucleated RBC % (auto) 5.2 Sodium Pending Potassium Pending Chloride Pending Carbon Dioxide Pending Anion Gap Pending BUN Pending Creatinine Pending Est Cr Clr Drug Dosing Pending eGFR Pending BUN/Creatinine Ratio Pending Glucose Pending POC Glucose 202 H 135 H Calcium Pending Magnesium Pending Total Bilirubin Pending AST Pending ALT Pending Alkaline Phosphatase Pending Total Protein Pending Albumin Pending Globulin Pending Albumin/Globulin Ratio Pending CMV IgM Ab CMV IgG Ab/TORCH Parvovirus IgG Ab Index Parvovirus IgM Ab Index PG Care Time/CCT Total # of Minutes Spent Total Time Spent with Patient: Total time spent is greater than 50% in coordination of care (as documented) at patient's floor/unit and/or counseling patient: Coding Level of Care Code 04246 SUB INP/OBS CARE 3/50MIN Diagnoses End stage renal disease on dialysis N18.6; Z99.2 Anemia D64.9 Atrial fibrillation I48.91 Atrial fibrillation type: unspecified Weakness R53.1 Renal cell carcinoma C64.9 (3) Atrial fibrillation Atrial fibrillation type: unspecified Qualified Code(s): I48.91 - Unspecified atrial fibrillation
[2024-05-26] MEDS: IRON SUCROSE 200 MG in SYRINGE 0 ML IV ONE (10:38)
[2024-05-26] MEDS: EPOETIN ALFA 20,000 UNITS/ML VIAL IV ONE (10:38)
[2024-05-26 12:43] LABS: Albumin Globulin Ratio 1.3 (0.9-2); Albumin Level 3.1 gm/dl (3.4-5.0); BUN Creatinine Ratio 13.2 (10-20); Bilirubin,Total 2.5 mg/dl (0.2-1.0); Calcium 9.5 mg/dl (8.6-10.3); Creatinine Clr Calc Pharmacy 19.8 ml/min; Globulin 2.3 gm/dl (2.5-4.0); Magnesium 2.6 mg/dl (1.7-2.4); Potassium 4.9 mmol/L (3.5-5.1); Total Protein 5.4 gm/dl (6.0-8.3)
--- NOTE | 2024-05-26 14:51 | Cardiology Progress Note ---
Date of Service May 26, 2024 Assessment & Plan (1) Atrial fibrillation with rapid ventricular response: (2) Cardiac pacemaker: Plan 1. Atrial fibrillation: He has permanent atrial fibrillation and is post AV maggie ablation, he is rate has been controlled by the pacemaker since ablation yesterday with no evidence of AV conduction. PVCs are present. 2. Pacemaker: His pacemaker is functioning well, I have left the settings at VVIR 90 bpm, over time we will reduce that rate but post ablation we prefer a more rapid pacing rate. Admission and Anticipated Discharge Date Admission Date: April 28, 2024 Subjective Feeling well today, no groin discomfort, no chest discomfort. No awareness of his heart rhythm. Physical Exam Physical Exam: Constitutional: Alert, cooperative and in no distress. He is resting in bed. HEENT: Unremarkable Neck: No jugular venous distention, carotid pulses are normal and equal bilaterally without bruits. Pulmonary: Clear to auscultation bilaterally. Cardiac: Regular rhythm with premature ventricular beats and appropriate prosthetic valve sounds, no gallop or rub. Abdomen: Soft, nontender with normal bowel sounds. Extremities: No edema. Right groin venous access site without bleeding or ecchymosis, no hematoma or bruit. Neurologic: No focal findings. Skin: No rash, multiple ecchymoses on his arms. His pacemaker site on the left is well-healed without erythema, swelling or tenderness. He has a dialysis ca theter on the right. Results & Data Vital Signs (Past 12 Hours) Vital Signs Temp Pulse Pulse Pulse Resp BP BP 05/26/24 10:48 89 97/68 L 05/26/24 10:30 86 84/66 L 05/26/24 10:00 92 H 93/60 L 05/26/24 09:30 89 98/69 L 05/26/24 09:10 92 H 100/69 05/26/24 09:04 36.3 C L 95 H 05/26/24 07:18 36.3 C L 89 20 119/66 05/26/24 04:17 36.4 C L 91 H 20 103/70 Pulse Ox O2 Del Method O2 Flow Rate 05/26/24 10:48 05/26/24 10:30 05/26/24 10:00 05/26/24 09:30 05/26/24 09:10 05/26/24 09:04 05/26/24 07:18 96 Nasal Cannula 2.0 05/26/24 04:17 95 BiPAP 4 Laboratory Results Cardiac Enzymes 05/26/24 Range/Units 05:38 AST 51 H (13-39) U/L CBC 05/26/24 Range/Units 05:38 WBC 9.03 (4.8-10.8) K/ul RBC 3.31 L (4.70-6.10) M/uL Hgb 9.2 L (14.0-18.0) g/dl Hct 31.8 L (42.0-52.0) % Plt Count 52 L (130-400) K/uL Comprehensive Metabolic Panel 05/26/24 Range/Units 05:38 Sodium 132 L (136-145) mmol/L Potassium 4.9 (3.5-5.1) mmol/L Chloride 96 L (98-107) mmol/L Carbon Dioxide 24 (21-32) mmol/L BUN 69 H (6-23) mg/dl Creatinine 5.24 H* D (0.6-1.4) mg/dl Glucose 133 H (70-99(Fasting)) mg/dl Calcium 9.5 (8.6-10.3) mg/dl AST 51 H (13-39) U/L ALT 22 (7-52) U/L Alkaline Phosphatase 262 H (34-104) U/L Total Protein 5.4 L (6.0-8.3) gm/dl Albumin 3.1 L (3.4-5.0) gm/dl Intake and Output 05/25/24 05/26/24 05/26/24 22:59 06:59 14:59 Intake Total 240 / 691.333 150 / 691.333 240 / 240 Balance 240 / 691.333 150 / 691.333 240 / 240 Intake: Oral 240 / 390 150 / 390 240 / 240 Other: Weight 140.7 kg 140.7 kg Weight Measurement Method Built in [facility] Built in [facility] Patient Weight 05/27/24 06:59 Weight 140.7 kg Diagnostic Findings Telemetry: Ventricular paced at 90 bpm with premature ventricular beats. Pacemaker interrogation: Almost continuously ventricular paced (other than PVCs). Slowing the pacemaker down confirmed continued presence of AV block. PG Care Time/CCT Total # of Minutes Spent Total Time Spent with Patient: Total time spent is greater than 50% in coordination of care (as documented) at patient's floor/unit and/or counseling patient: Coding Level of Care Code 96131 SUB INP/OBS CARE 235MIN Diagnoses Atrial fibrillation with rapid ventricular response I48.91 Cardiac pacemaker Z95.0 CPT Codes Pacemaker Single Lead Programming - [id number] ([id number])
--- NOTE | 2024-05-26 16:16 | Electrocardiogram Report ---
Test Reason : Blood Pressure : */* mmHG Vent. Rate : 107 BPM Atrial Rate : 96 BPM P-R Int : * ms QRS Dur : 110 ms QT Int : 342 ms P-R-T Axes : * 19 203 degrees QTcB Int : 456 ms Atrial fibrillation with a demand pacemaker Premature ventricular complexes Lateral infarct , age undetermined Abnormal ECG When compared with ECG of 22-May-2024 05:44, (unconfirmed) No significant change Confirmed by Estevan Kyle ([id number]) on 05/26/2024 4:16:21 PM Referred By: Alfredo Timmons Confirmed By: Estevan Kyle
--- NOTE | 2024-05-26 16:34 | Electrocardiogram Report ---
Test Reason : Blood Pressure : */* mmHG Vent. Rate : 91 BPM Atrial Rate : 97 BPM P-R Int : * ms QRS Dur : 118 ms QT Int : 364 ms P-R-T Axes : * 38 222 degrees QTcB Int : 447 ms Ventricular-paced rhythm with occasional Premature ventricular complexes Abnormal ECG When compared with ECG of 23-May-2024 10:55, (unconfirmed) Atrial fibrillation is no longer conducting Confirmed by Estevan Kyle ([id number]) on 05/26/2024 4:33:56 PM Referred By: Alfredo Timmons Confirmed By: Estevan Kyle
[2024-05-27 06:36] LABS: Albumin Globulin Ratio 1.2 (0.9-2); Albumin Level 2.9 gm/dl (3.4-5.0); BUN Creatinine Ratio 13.2 (10-20); Bilirubin,Total 2.4 mg/dl (0.2-1.0); Calcium 9.3 mg/dl (8.6-10.3); Creatinine Clr Calc Pharmacy 27.4 ml/min; Globulin 2.4 gm/dl (2.5-4.0); Potassium 4.3 mmol/L (3.5-5.1); Total Protein 5.3 gm/dl (6.0-8.3)
[2024-05-27 07:09] LABS: Hemoglobin 9.1 g/dl (14.0-18.0); Mean Corpuscular Hemoglobin 28.1 pg (25.0-34.0); Mean Corpuscular Hgb Conc 28.4 g/dL (32.0-36.0); Mean Corpuscular Volume 98.8 fL (80.0-100.0); Nucleated RBC # (auto) 1.32 K/uL (0.00-0.12); Nucleated RBC % (auto) 14.1 %; Platelet Count 54 K/uL (130-400); RDW Coefficient of Variation 31.2 % (11.5-14.5); RDW Standard Deviation 103.3 fL (36.4-46.3); Red Blood Count 3.24 M/uL (4.70-6.10); White Blood Count 9.34 K/ul (4.8-10.8)
--- NOTE | 2024-05-27 07:39 | Hospitalist Progress Note ---
Date of Service May 27, 2024 Assessment & Plan (1) Atrial fibrillation with rapid ventricular response: Plan: Presentation on admission: 68yoPMHx new HD dependent ESRD since March 2024, hx afib, renal cell ca (s/p R nephrectomy for renal cell ca, on opdivo), HLD, Hypothyroidism, SARAH as well as autoimmune hepatitis w/ long standing steroids ~1yr presented for b/l leg weakness on 05/18 and found to be positive for +rhinovirus/enterovirus and also tx for PNA while inpatient and has had complicated course/ongoing inpatient stay as outlined below and eventual plans for [facility] for ongoing rehab and HD at discharge. chronic, long-standing permanent a.fib followed by outside cardiology near [place] Early in admission had had poor rate control despite meto succ BID + cardizem CD 120mg HS and on chronic eliquis 2.5mg BID for AC (held last week for procedures/heparin gtt) Was poor candidate for amio w/ abn LFTs and autoimmune hepatitis, prior cardioversion in past no successful and cardiology consulted and pacemaker/AV ablation planned given hypotension precluded use of higher doses AV maggie agents s/p AV node ablation with permanent pacemaker insertion on 05/13/[address] Mitchell - had been pacing around the clock (pacer dependent due to AV node ablation) however starting 05/21 became tachycardic and unfortunately converted back to rapid afib indicating residual AV node function and Dr Kyle saw over the past weeked and added metoprolol 50mg BID but no response/just hypotension and recs for repeat AV maggie ablation s/p ablation with Dr Kyle on 05/25 Paced on monitor, rates controlled following w/ improvement in BP Heparin gtt discontinued following ablation Eliquis resumed 3/4 PM HR appearing stable/paced. Downgraded off tele 05/26 per discussion w/ cardiology BP tolerated HD for ~2L on 05/26 given amish in rhythm and continue HD per nephro for volume management Titrated from 4L --> 2L. CPAP/NC as below Appreciate continued recs/assistance and adj setting as needed and will continue to monitor. Plts stable/imrpoved 54 w/ ongoing eliquis use. Prednisone has been decreased to 20mg daily/remains on Bactrim for PJP prophylaxis until <20mg/daily Monitor (2) Thrombocytopenia: Plan: IMPROVING finally. B12/folate wnl. Peripheral smear without suggestion TTP/HUS, no evidence for DIC. Plt lowest ~30 and was 49 but 34 on heparin gtt which has been discontinued and back on eliquis BID and platelets up to 52 --> 54 ?2nd to Opdivo, liver dysfunction ?2nd to possible EBV infection given EBV PCR returned POSITIVE CMV, parvovirus titers pending s/p bone marrow biopsy 05/24-- BM chromosome analysis/flow cytometry/pathology pending. Monitor CBC/plt in AM (3) Laura Cobb virus infection: Plan: EBV titers + IgM indicating current or recent infection --> PCR returned POSITIVE which could either be primary infection OR re- activiation in setting of immunosuppression and do believe could be contributing to hepatitis/low plt/extreme fatigue as well however no rx for such/supportive care (4) End stage renal disease on dialysis: Plan: New HD dependent since March 24/2025. Hx solitary kidney status s/p R nephrectomy in the past for renal cell ca. Significant volume overload earlier in the stay, nephrology consulted and following -- appreciate recs/assistance Had 9 serial HD sessions due to severe volume overload earlier in the admission w/ significant improvement in volume status since admission however did have set back w/ Afib/RVR as above and required AV ablation (x2) and pacemaker placement Midodrine has been ordered/provided w/ HD for BP support. Oliguric/no benefit from bumex at this time Last week required 4 sessions and has been maintained on M/W/F schedule at this time and do suspect some of his LE edema is chronic lymphedema however ongoing monitoring HD on 05/26 w/ improvement in HR/BP w/ #1 and able to pull off ~2L and was provided EPO/Venofer w/ HD Continued HD assistnace from nephrology appreciated and will need ongoing HD at [facility] at discharge (5) Acute hypoxic respiratory failure: Plan: NC at baseline Suspect multifactorial-o pulm edema from ESRD/liver dysfunction w/ hepatitis and cardiac issues w/ afib/RVR as above along with rhinovirus/PNA earlier in the stay s/p tx Was up to 4L w/ afib/RVR and now back to 2L and maintained and undergoing HD for volume management as outlined CPAP continued HS, NC during day but did encourage and discuss w/ patient to use w/ daytime napping as he has done at home in the past (6) Weakness: Plan: IMPROVING especially his hip proximal muscles -- deconditioning is the main culprit more than likely, although cannot rule out a steroid myopathy given long standing use B1, B12 wnl, CPK wnl Suspect possible acute mono or subacute mono likely contributing --> see above Continues with therapy while inpatient w/ plans for INTENSIVE rehab post-dc which he should get at [facility] -lumbar spine issue cannot be ruled out but less likely (no paresthesias or radicular pain of legs) (7) Autoimmune hepatitis treated with steroids: Plan: autoimmune hepatitis diagnosed July 2023 secondary to immunotherapy for renal cell ca and has been on chronic steroids since that time --> During Mar stay was on burst for this issues as well as concern immunotherapy contributing to his thrombocytopenia hepatitis - 2nd to Opdivo? 2nd to hepatic congestion from volume overload? combination of factors? EBV IgM returned POSITIVE EBV PCR also positive indicating acute or subacute infection (or re-activation) This could be contributing to hepatitis & low platelets CMV & parvovirus titers pending HepA, HepB, and HepC ab's were NEGATIVE in 06/2023 LFTs remain mildly high despite steroids , ammonia wnl Initially was on 70mg/day weaning q7d by 10mg increments--> Down to prednisone 20mg daily at present until 06/01 and will be decreased to 10mg on 06/02 Continues w/ PJP prophy until prednisone is <20mg/day; use SS tmp/sulfa 1 tab M/W/F at HS for prophylaxis K levels wnl Obtained formal GI consult to ensure nothing else is causing the liver dysfunction - they agree that it is likely due to immunotherapy/autoimmune +/- right heart failure/passive congestion (8) Pneumonia: Plan: Resolved. Suspected either viral vs superimposed bacterial infection 2nd to rhinovirus and completed 7+ days IV/PO abx and remains on BACTRIM for PJP proph given steroid use until <10mg daily on 06/02 recommended (9) Renal cell carcinoma: Plan: stage 4 -h/o right nephrectomy due to RCC follows with Dr Grijalva - cancer care clinic remaining left kidney has cysts vs masses on last imaging study - this bears watching (10) S/P TAVR (transcatheter aortic valve replacement): Plan: last echo with normal valve function (04/17) (11) Elevated troponin: Plan: peak HS trop 103 early in the admission without evidence for HENRY and suspected likely myocardial demand ischemia in setting volume overload from above/infection/pna/etc (12) PAD (peripheral artery disease): Plan: biphasic waveforms on LLE proximal vessels, monophasic waveforms on distal vessels LEFT FOOT/toes have dusky appearance, foot is cool, and cap refill is delayed especially the 3rd/4th/5th toes -ideally should be on antiplatelet agents and statin but both contraindicated right now due to abnormal LFTs and low platelets Consult for Dr Rajan chandler, saw 05/25 (see note) --> pt has three vessel runoff/no acute intervention planned and can have outpt f/u. --> Notify sooner of any worsening/evidence for limb threatening CLI going forward and can Plan Chronic conditions/resolved conditions: Hypothyroidism: TSH wnl and continues on usual Synthroid dosing Morbid Obesity: BMI 38- decreasing prednisone/HD for volume, eventual rehab and wt loss encouraged as able Pre-DM: A1c 6.1 in March and well controlled w/ SSI while inaptient with ongoing steroid use for autoimmune hepatitis/other as above BRBPR: 2nd to hemorrhoids vs fissures unable to visualize however is anal outlet. doubtful diverticulosis and given anusol suppositories starting 05/19 and has been stable since stopping DVT proph: eliquis 2.5mg BID DIspo: continues inpatient stay/PT/OT and eventual rehab at [facility], hopefully this upcoming week. updated at bedside 05/26. HD per nephrology. Meds have been extended to prevent dropping off given continued inpatient stay Admission and Anticipated Discharge Date Admission Date: April 28, 2024 Supervising Physician Co-Signing Physician Notes The patient was not seen by me. The chart was reviewed. Case discussed with DENNIS Schulte. Agree with assessment and plan Subjective Evaluated this morning, in room. Reports feeling better, on 2L. Encouraged CPAP w/ sleeping as able (he reports doing that at home when napping). Discussed HD yesterday, 2L pulled off. If remains stable plan to send for auth w/ plans for possible [facility] next week? No CP, abdominal pain/nausea/vomiting. +BM yesterday, none yet today. Questions/concerns addressed at this time. Physical Exam 2 Physical Exam: General: 68 yo male in bed, at bedside, NAD, ongoing weakness but reports feeling alright/well HEENT: head atraumatic, normocephalic, mmm, trachea midline, thick neck Chest: pacemaker to LEFT chest - ecchymosis/petechiae but no significant hematoma present CV: paced with PVCs, rates controlled, +systolic murmur LSB, bilateral pitting edema (worse in feet 2-3+, 2+ to legs -- slight decrease since HD on 05/26), decreased cap refill but sensation intact Resp: diminished in the bases but no significant tachypnea/cough, no wheezing, on 2L NC this morning but encouraged to use CPAP when sleeping/napping GI: +BS, slight distension but no overt tenderness, reducible chioma-umbilical hernia noted/no evidence for strangulation at this time Ext: b/l LE edema as noted to shins, pulses R foot 1-2+, L foot 1+ best, L pop pulses 1-2, L foot remains cold (slightly warmer today? no cellulitis/tenderness however toes remain dusky) Skin: numerous optifoams to arms, scattered bruising Psych: AOx3, cooperative and pleasant during encounter Results & Data Results & Data Vital Signs (Past 12 Hours) Vital Signs Temp Pulse Resp BP Pulse Ox O2 Del Method O2 Flow Rate 05/27/24 07:25 36.6 C 81 16 91/53 L 92 Nasal Cannula 2 05/26/24 21:30 Nasal Cannula 2 05/26/24 19:53 36.5 C 79 18 102/67 97 Nasal Cannula 2 Laboratory Results 05/27/24 05:27 05/27/24 05:27 PG Care Time/CCT Total # of Minutes Spent Total Time Spent with Patient: Total time spent is greater than 50% in coordination of care (as documented) at patient's floor/unit and/or counseling patient: Coding Level of Care Code 58963 SUB INP/OBS CARE 3/50MIN Diagnoses Atrial fibrillation with rapid ventricular response I48.91 Thrombocytopenia D69.6 Laura Cobb virus infection B27.90 End stage renal disease on dialysis N18.6; Z99.2 Acute hypoxic respiratory failure J96.01 Weakness R53.1 Autoimmune hepatitis treated with steroids K75.4 Pneumonia J18.9 Renal cell carcinoma C64.9 S/P TAVR (transcatheter aortic valve replacement) Z95.2 Elevated troponin R79.89 PAD (peripheral artery disease) I73.9
--- NOTE | 2024-05-27 09:05 | Nephrology Progress Note ---
Date of Service May 27, 2024 Assessment & Plan (1) End stage renal disease on dialysis: Plan: * Outpatient orders: [facility] Dany MWF 3.5hr F-180NR 3K 2.5Ca Na140 HCO3 34 EDW 157kg * Patient will need outpatient HD EDW adjusted following hospitalization * Volume status and electrolyte balance are acceptable. No acute indication for HD today * Midodrine is provided prior to each treatment for BP support * Continue dietary sodium restriction. Maintain daily 1.5 L oral fluid limit * Monitor BMP, I&O, wt (2) Anemia: Plan: * Will provide IV Venofer and SCOTT w/ HD * Awaiting bone marrow biopsy results (3) Atrial fibrillation: Plan: * AV maggie ablation and pacemaker placement on 05/13/2024. * Repeat AVN ablation 05/25/24 * Anticoagulated with Eliquis (4) Weakness: Plan: * Continue PT * Transfer to [facility] for ongoing PT once bed available (5) Renal cell carcinoma: Admission and Anticipated Discharge Date Admission Date: April 28, 2024 Subjective Mr. Guadalupe was evaluated in his hospital room this morning. He remains weak but hopes to participate in PT this afternoon and sit up in a chair Review of Systems Constitutional: no fever Eyes: no problem reported Ear, Nose, Mouth, Throat: no problem reported Respiratory: no dyspnea Cardiovascular: no chest pain Gastrointestinal: no abdominal pain, no nausea, no vomiting and no diarrhea/loose stools Integumentary: no rash Physical Exam Constitutional: not in distress Eyes: PERRL, conjunctivae normal, anicteric sclerae ENMT: external ear and nose normal, oropharynx normal Neck: trachea midline, no thyromegaly (IJ TCC w/ clean dry dressing) Respiratory: normal respiratory effort Auscultation: lungs clear to auscultation bilaterally and + rales (bilaterally) Cardiovascular: RRR, no murmur, no edema Rate/Rhythm: regular rate, regular rhythm, + tachycardic and + irregularly irregular Extremities: + edema (2+ peripheral edema) Gastrointestinal (Abdomen): normal bowel sounds, soft, nontender, no hepatosplenomegaly Musculoskeletal: Extremities: no cyanosis Skin: no rashes, warm and dry Neurologic: awake; not confused Speech / Cognition: normal speech and normal cognition Results & Data Vital Signs (Past 12 Hours) Vital Signs Temp Pulse Resp BP Pulse Ox O2 Del Method O2 Flow Rate 03/06/25 07:25 36.6 C 81 16 91/53 L 92 Nasal Cannula 2 05/26/24 21:30 Nasal Cannula 2 Laboratory Results Laboratory Results - last 24 hr 05/26/24 05/26/24 05/26/24 05:38 13:23 16:50 WBC RBC Hgb Hct MCV MCH MCHC RDW Std Deviation RDW Coeff of Nick Plt Count Absolute Nucleated RBC Nucleated RBC % (auto) Sodium 132 L Potassium 4.9 Chloride 96 L Carbon Dioxide 24 Anion Gap 12 H BUN 69 H Creatinine 5.24 H* D Est Cr Clr Drug Dosing 19.8 eGFR 11.09 BUN/Creatinine Ratio 13.2 Glucose 133 H POC Glucose 110 H 129 H Calcium 9.5 Magnesium 2.6 H Total Bilirubin 2.5 H AST 51 H ALT 22 Alkaline Phosphatase 262 H Total Protein 5.4 L Albumin 3.1 L Globulin 2.3 L Albumin/Globulin Ratio 1.3 05/26/24 05/27/24 05/27/24 20:19 05:27 07:42 WBC 9.34 RBC 3.24 L Hgb 9.1 L Hct 32.0 L MCV 98.8 MCH 28.1 MCHC 28.4 L RDW Std Deviation 103.3 H RDW Coeff of Nick 31.2 H Plt Count 54 L Absolute Nucleated RBC 1.32 H Nucleated RBC % (auto) 14.1 Sodium 134 L Potassium 4.3 Chloride 99 Carbon Dioxide 27 Anion Gap 8 BUN 50 H Creatinine 3.80 H D Est Cr Clr Drug Dosing 27.4 eGFR 16.31 BUN/Creatinine Ratio 13.2 Glucose 118 H POC Glucose 120 H 123 H Calcium 9.3 Magnesium Total Bilirubin 2.4 H AST 50 H ALT 23 Alkaline Phosphatase 279 H Total Protein 5.3 L Albumin 2.9 L Globulin 2.4 L Albumin/Globulin Ratio 1.2 PG Care Time/CCT Total # of Minutes Spent Total Time Spent with Patient: Total time spent is greater than 50% in coordination of care (as documented) at patient's floor/unit and/or counseling patient: Coding Level of Care Code 01088 SUB INP/OBS CARE 3/50MIN Diagnoses End stage renal disease on dialysis N18.6; Z99.2 Anemia D64.9 Atrial fibrillation I48.91 Atrial fibrillation type: unspecified Weakness R53.1 Renal cell carcinoma C64.9 (3) Atrial fibrillation Atrial fibrillation type: unspecified Qualified Code(s): I48.91 - Unspecified atrial fibrillation
[2024-05-28 07:32] LABS: Hematocrit (blood only) 29.4 % (42.0-52.0); Hemoglobin 8.5 g/dl (14.0-18.0); Mean Corpuscular Hemoglobin 28.1 pg (25.0-34.0); Mean Corpuscular Hgb Conc 28.9 g/dL (32.0-36.0); Mean Corpuscular Volume 97.4 fL (80.0-100.0); Nucleated RBC # (auto) 0.48 K/uL (0.00-0.12); Nucleated RBC % (auto) 5.3 %; Platelet Count 52 K/uL (130-400); RDW Standard Deviation 103.1 fL (36.4-46.3); Red Blood Count 3.02 M/uL (4.70-6.10); White Blood Count 9.06 K/ul (4.8-10.8)
--- NOTE | 2024-05-28 07:41 | Hospitalist Progress Note ---
Date of Service May 28, 2024 Assessment & Plan (1) Atrial fibrillation with rapid ventricular response: Plan: Presentation on admission: 68yoPMHx new HD dependent ESRD since March 2024, hx afib, renal cell ca (s/p R nephrectomy for renal cell ca, on opdivo), HLD, Hypothyroidism, SARAH as well as autoimmune hepatitis w/ long standing steroids ~1yr presented for b/l leg weakness on 05/18 and found to be positive for +rhinovirus/enterovirus and also tx for PNA while inpatient and has had complicated course/ongoing inpatient stay as outlined below and eventual plans for [facility] for ongoing rehab and HD at discharge. chronic, long-standing permanent a.fib followed by outside cardiology near [place] Early in admission had had poor rate control despite meto succ BID + cardizem CD 120mg HS and on chronic eliquis 2.5mg BID for AC (held last week for procedures/heparin gtt) Was poor candidate for amio w/ abn LFTs and autoimmune hepatitis, prior cardioversion in past no successful and cardiology consulted and pacemaker/AV ablation planned given hypotension precluded use of higher doses AV maggie agents s/p AV node ablation with permanent pacemaker insertion on 05/13/[address] Mitchell - had been pacing around the clock (pacer dependent due to AV node ablation) however starting 05/21 became tachycardic and unfortunately converted back to rapid afib indicating residual AV node function and Dr Kyle saw over the past weeked and added metoprolol 50mg BID but no response/just hypotension and recs for repeat AV maggie ablation s/p ablation with Dr Kyle on 05/25 Paced on monitor, rates controlled following w/ improvement in BP Heparin gtt discontinued following ablation Eliquis resumed 3/4 PM HR appearing stable/paced. Downgraded off tele 05/26 per discussion w/ cardiology BP tolerated HD for ~2L on 05/26 given mandaeism in rhythm and continue HD per nephro for volume management HR remains stable 05/28 (2) Thrombocytopenia: Plan: IMPROVING finally. B12/folate wnl. Peripheral smear without suggestion TTP/HUS, no evidence for DIC. Plt lowest ~30 and was 49 but 34 on heparin gtt which has been discontinued and back on eliquis BID and platelets up to 52 --> 54 -->52 ?2nd to Opdivo, liver dysfunction ?2nd to possible EBV infection given EBV PCR returned POSITIVE CMV, parvovirus titers pending s/p bone marrow biopsy 05/24 -- BM chromosome analysis/flow cytometry/pathology pending Monitor CBC/plt in AM (3) Laura Cobb virus infection: Plan: EBV titers + IgM indicating current or recent infection --> PCR returned POSITIVE which could either be primary infection OR re- activiation in setting of immunosuppression and do believe could be contributing to hepatitis/low plt/extreme fatigue as well however no rx for such/supportive care (4) End stage renal disease on dialysis: Plan: New HD dependent since March 24/2025. Hx solitary kidney status s/p R nephrectomy in the past for renal cell ca. Significant volume overload earlier in the stay, nephrology consulted and following -- appreciate recs/assistance Had 9 serial HD sessions due to severe volume overload earlier in the admission w/ significant improvement in volume status since admission however did have set back w/ Afib/RVR as above and required AV ablation (x2) and pacemaker placement Midodrine has been ordered/provided w/ HD for BP support. Oliguric/no benefit from bumex at this time Last week required 4 sessions and has been maintained on M/W/F schedule at this time and do suspect some of his LE edema is chronic lymphedema however ongoing monitoring HD on 05/26 for ~2L. Was provided EPO/Venofer w/ treatment Plan for HD this afternoon at 1pm w/ EPO (05/28) Continued HD assistance from nephrology appreciated and will need ongoing HD at [facility] at discharge (5) Acute hypoxic respiratory failure: Plan: NC at baseline Suspect multifactorial-o pulm edema from ESRD/liver dysfunction w/ hepatitis and cardiac issues w/ afib/RVR as above along with rhinovirus/PNA earlier in the stay s/p tx Was up to 4L w/ afib/RVR and now back to 2L and maintained and undergoing HD for volume management as outlined CPAP continued HS, NC during day but did encourage and discuss w/ patient to use w/ daytime napping as he has done at home in the past (6) Weakness: Plan: IMPROVING especially his hip proximal muscles -- deconditioning is the main culprit more than likely, although cannot rule out a steroid myopathy given long standing use B1, B12 wnl, CPK wnl Suspect possible acute mono or subacute mono likely contributing --> see above Continues with therapy while inpatient w/ plans for INTENSIVE rehab post-dc which he should get at [facility] -lumbar spine issue cannot be ruled out but less likely (no paresthesias or radicular pain of legs) (7) Autoimmune hepatitis treated with steroids: Plan: autoimmune hepatitis diagnosed July 2023 secondary to immunotherapy for renal cell ca and has been on chronic steroids since that time --> During Mar stay was on burst for this issues as well as concern immunotherapy contributing to his thrombocytopenia hepatitis - 2nd to Opdivo? 2nd to hepatic congestion from volume overload? combination of factors? EBV IgM returned POSITIVE EBV PCR also positive indicating acute or subacute infection (or re-activation) This could be contributing to hepatitis & low platelets CMV & parvovirus titers pending HepA, HepB, and HepC ab's were NEGATIVE in 06/2023 LFTs remain mildly high despite steroids , ammonia wnl Initially was on 70mg/day weaning q7d by 10mg increments - Down to prednisone 20mg daily through 06/01 then to be 10mg x 7d - Continues w/ PJP prophy until prednisone is <20mg/day; use SS tmp/sulfa 1 tab M/W/F at HS for prophylaxis K levels wnl Obtained formal GI consult to ensure nothing else is causing the liver dysfunction - they agree that it is likely due to immunotherapy/autoimmune +/- right heart failure/passive congestion (8) Pneumonia: Plan: Resolved. Suspected either viral vs superimposed bacterial infection 2nd to rhinovirus and completed 7+ days IV/PO abx and remains on BACTRIM for PJP proph given steroid use until <10mg daily on 06/02 recommended (9) Renal cell carcinoma: Plan: stage 4 -h/o right nephrectomy due to RCC follows with Dr Grijalva - cancer care clinic remaining left kidney has cysts vs masses on last imaging study - this bears watching (10) S/P TAVR (transcatheter aortic valve replacement): Plan: last echo with normal valve function (04/17) (11) Elevated troponin: Plan: peak HS trop 103 early in the admission without evidence for HENRY and suspected likely myocardial demand ischemia in setting volume overload from above/infection/pna/etc (12) PAD (peripheral artery disease): Plan: biphasic waveforms on LLE proximal vessels, monophasic waveforms on distal vessels LEFT FOOT/toes have dusky appearance, foot is cool, and cap refill is delayed especially the 3rd/4th/5th toes -ideally should be on antiplatelet agents and statin but both contraindicated right now due to abnormal LFTs and low platelets Consult for Dr Rajan chandler, saw 05/25 (see note) --> pt has three vessel runoff/no acute intervention planned and can have outpt f/u. --> Notify sooner of any worsening/evidence for limb threatening CLI going forward and can Plan Chronic conditions/resolved conditions: Hypothyroidism: TSH wnl and continues on usual Synthroid dosing Morbid Obesity: BMI 38- decreasing prednisone/HD for volume, eventual rehab and wt loss encouraged as able Pre-DM: A1c 6.1 in March and well controlled w/ SSI while inaptient with ongoing steroid use for autoimmune hepatitis/other as above BRBPR: 2nd to hemorrhoids vs fissures unable to visualize however is anal outlet. doubtful diverticulosis and given anusol suppositories starting 05/19 and has been stable since stopping DVT proph - eliquis 2.5mg BID Dispo continued inpatient stay HD for today CM to apply for auth for hopeful dc to [facility] early next week for ongoing rehab/HD updated in room 05/28 Admission and Anticipated Discharge Date Admission Date: April 28, 2024 Supervising Physician Co-Signing Physician Notes The patient was not seen by me. The chart was reviewed. Case discussed with DENNIS Schulte. Agree with assessment and plan Subjective Evaluated this morning, resting in bed. Ongoing weakness but stable exam, on 2L. BP stable. in room. Reports Dr Soto in around 10am and plan for HD around 1pm. Worked w/ PT yesterday and able to sit up in a chair. Discussed I spoke w/ CM and will apply for auth in event remaining stable through weekend for hopeful dc to [facility] early next week for ongoing rehab.HD. No fever/chills, no CP/SOB. Questions/concerns addressed at this time. Physical Exam 2 Physical Exam: General: 68 yo male in bed, at bedside, NAD, ongoing weakness but reports feeling alright/well HEENT: head atraumatic, normocephalic, mmm, trachea midline, thick neck Chest: pacemaker to LEFT chest - ecchymosis/petechiae but no significant hematoma present CV: paced with PVCs, rates controlled, +systolic murmur LSB, bilateral pitting edema (worse in feet 2-3+, 2+ to legs -- slight decrease since HD on 05/26), decreased cap refill but sensation intact Resp: diminished in the bases but no significant tachypnea/cough, no wheezing, on 2L NC this morning but encouraged to use CPAP when sleeping/napping GI: +BS, slight distension but no overt tenderness, reducible chioma-umbilical hernia noted/no evidence for strangulation at this time Ext: b/l LE edema as noted to shins, pulses R foot 1-2+, L foot 1+ best, L pop pulses 1-2, L foot remains cold (slightly warmer today? no cellulitis/tenderness however toes remain dusky) Skin: numerous optifoams to arms, scattered bruising Psych: AOx3, cooperative and pleasant during encounter Results & Data Results & Data Vital Signs (Past 12 Hours) Vital Signs Temp Pulse Resp BP Pulse Ox O2 Del Method O2 Flow Rate 05/27/24 21:00 Nasal Cannula 2 05/27/24 19:47 36.5 C 79 16 124/92 99 Nasal Cannula 2 Laboratory Results 05/28/24 06:33 05/28/24 06:33 PG Care Time/CCT Total # of Minutes Spent Total Time Spent with Patient: Total time spent is greater than 50% in coordination of care (as documented) at patient's floor/unit and/or counseling patient: Coding Level of Care Code 19544 SUB INP/OBS CARE 3/50MIN Diagnoses Atrial fibrillation with rapid ventricular response I48.91 Thrombocytopenia D69.6 Laura Cobb virus infection B27.90 End stage renal disease on dialysis N18.6; Z99.2 Acute hypoxic respiratory failure J96.01 Weakness R53.1 Autoimmune hepatitis treated with steroids K75.4 Pneumonia J18.9 Renal cell carcinoma C64.9 S/P TAVR (transcatheter aortic valve replacement) Z95.2 Elevated troponin R79.89 PAD (peripheral artery disease) I73.9
[2024-05-28 07:47] LABS: Albumin Level 2.6 gm/dl (3.4-5.0); BUN Creatinine Ratio 14.1 (10-20); Bilirubin Direct 1.1 mg/dl (0-0.2); Calcium 9.2 mg/dl (8.6-10.3); Creatinine Clr Calc Pharmacy 22.4 ml/min; Potassium 4.8 mmol/L (3.5-5.1); Total Protein 4.8 gm/dl (6.0-8.3)
--- NOTE | 2024-05-28 09:19 | Nephrology Progress Note ---
Date of Service May 28, 2024 Assessment & Plan (1) End stage renal disease on dialysis: Plan: * Outpatient orders: [facility] D[facility] MWF 3.5hr F-180NR 3K 2.5Ca Na140 HCO3 34 EDW 157kg * Patient will need outpatient HD EDW adjusted following hospitalization * Will provide HD today. Orders have been entered into EMR and HD RN notified * Midodrine is provided prior to each treatment for BP support * Continue dietary sodium restriction. Maintain daily 1.5 L oral fluid limit * Monitor BMP, I&O, wt (2) Anemia: Plan: * Will provide IV Venofer and SCOTT w/ HD * Awaiting bone marrow biopsy results (3) Atrial fibrillation: Plan: * AV maggie ablation and pacemaker placement on 05/13/2024. * Repeat AVN ablation 05/25/24 * Anticoagulated with Eliquis (4) Weakness: Plan: * Continue PT * Transfer to [facility] for ongoing PT once bed available (5) Renal cell carcinoma: Admission and Anticipated Discharge Date Admission Date: April 28, 2024 Subjective Mr. Guadalupe was evaluated in his hospital room this morning. He was able to participate in PT yesterday and sit up in a chair Review of Systems Constitutional: no fever Eyes: no problem reported Ear, Nose, Mouth, Throat: no problem reported Respiratory: no dyspnea Cardiovascular: no chest pain Gastrointestinal: no abdominal pain, no nausea, no vomiting and no diarrhea/loose stools Integumentary: no rash Physical Exam Constitutional: not in distress Eyes: PERRL, conjunctivae normal, anicteric sclerae ENMT: external ear and nose normal, oropharynx normal Neck: trachea midline, no thyromegaly (IJ TCC w/ clean dry dressing) Respiratory: normal respiratory effort Auscultation: lungs clear to auscultation bilaterally and + rales (bilaterally) Cardiovascular: RRR, no murmur, no edema Rate/Rhythm: regular rate, regular rhythm, + tachycardic and + irregularly irregular Extremities: + edema (2+ peripheral edema) Gastrointestinal (Abdomen): normal bowel sounds, soft, nontender, no hepatosplenomegaly Musculoskeletal: Extremities: no cyanosis Skin: no rashes, warm and dry Neurologic: awake; not confused Speech / Cognition: normal speech and normal cognition Results & Data Vital Signs (Past 12 Hours) Vital Signs Temp Pulse Resp BP Pulse Ox O2 Del Method O2 Flow Rate 03/07/25 08:00 36.6 C 79 15 105/69 99 Nasal Cannula 2 Laboratory Results Laboratory Results - last 24 hr 05/24/24 05/27/24 05/27/24 10:45 11:30 16:11 WBC RBC Hgb Hct MCV MCH MCHC RDW Std Deviation RDW Coeff of Nick Plt Count Absolute Nucleated RBC Nucleated RBC % (auto) Sodium Potassium Chloride Carbon Dioxide Anion Gap BUN Creatinine Est Cr Clr Drug Dosing eGFR BUN/Creatinine Ratio Glucose POC Glucose 156 H 125 H Calcium Total Bilirubin Direct Bilirubin AST ALT Alkaline Phosphatase Total Protein Albumin Flow Cytometry Comment See Comment 05/27/24 05/28/24 05/28/24 20:23 06:33 07:32 WBC 9.06 RBC 3.02 L Hgb 8.5 L Hct 29.4 L MCV 97.4 MCH 28.1 MCHC 28.9 L RDW Std Deviation 103.1 H RDW Coeff of Nick 31.0 H Plt Count 52 L Absolute Nucleated RBC 0.48 H Nucleated RBC % (auto) 5.3 Sodium 134 L Potassium 4.8 Chloride 99 Carbon Dioxide 25 Anion Gap 10 BUN 66 H Creatinine 4.67 H* D Est Cr Clr Drug Dosing 22.4 eGFR 12.74 BUN/Creatinine Ratio 14.1 Glucose 104 H POC Glucose 129 H 114 H Calcium 9.2 Total Bilirubin 2.0 H Direct Bilirubin 1.1 H AST 44 H ALT 21 Alkaline Phosphatase 284 H Total Protein 4.8 L Albumin 2.6 L Flow Cytometry Comment PG Care Time/CCT Total # of Minutes Spent Total Time Spent with Patient: Total time spent is greater than 50% in coordination of care (as documented) at patient's floor/unit and/or counseling patient: Coding Level of Care Code 95048 SUB INP/OBS CARE 3/50MIN Diagnoses End stage renal disease on dialysis N18.6; Z99.2 Anemia D64.9 Atrial fibrillation I48.91 Atrial fibrillation type: unspecified Weakness R53.1 Renal cell carcinoma C64.9 (3) Atrial fibrillation Atrial fibrillation type: unspecified Qualified Code(s): I48.91 - Unspecified atrial fibrillation
[2024-05-28] MEDS: EPOETIN ALFA 10,000 UNITS/ML VIAL IV ONE (17:45)
--- NOTE | 2024-05-29 07:52 | Hospitalist Progress Note ---
Date of Service May 29, 2024 Assessment & Plan (1) Atrial fibrillation with rapid ventricular response: Plan: Presentation on admission: 68yoPMHx new HD dependent ESRD since March 2024, hx afib, renal cell ca (s/p R nephrectomy for renal cell ca, on opdivo), HLD, Hypothyroidism, SARAH as well as autoimmune hepatitis w/ long standing steroids ~1yr presented for b/l leg weakness on 05/18 and found to be positive for +rhinovirus/enterovirus and also tx for PNA while inpatient and has had complicated course/ongoing inpatient stay as outlined below and eventual plans for [facility] for ongoing rehab and HD at discharge. chronic, long-standing permanent a.fib followed by outside cardiology near [place] Early in admission had had poor rate control despite meto succ BID + cardizem CD 120mg HS and on chronic eliquis 2.5mg BID for AC (held last week for procedures/heparin gtt) Was poor candidate for amio w/ abn LFTs and autoimmune hepatitis, prior cardioversion in past no successful and cardiology consulted and pacemaker/AV ablation planned given hypotension precluded use of higher doses AV maggie agents s/p AV node ablation with permanent pacemaker insertion on 05/13/[address] Mitchell - had been pacing around the clock (pacer dependent due to AV node ablation) however starting 05/21 became tachycardic and unfortunately converted back to rapid afib indicating residual AV node function and Dr Kyle saw over the past weekend and added metoprolol 50mg BID but no response/just hypotension and recs for repeat AV maggie ablation s/p ablation with Dr Kyle on 05/25 Paced on monitor, rates controlled following w/ improvement in BP Heparin gtt discontinued following ablation Eliquis resumed 3/ PM HR appearing stable/paced. Downgraded off tele 05/26 per discussion w/ cardiology BP tolerated HD for ~2L on 05/26 given hindu in rhythm and continue HD per nephro for volume management HR remains stable 05/28-05/29. Able to pull off 2L w/ HD yesterday. (2) End stage renal disease on dialysis: Plan: New HD dependent since March 24/2025. Hx solitary kidney status s/p R nephrectomy in the past for renal cell ca. Significant volume overload earlier in the stay, nephrology consulted and following -- appreciate recs/assistance Had 9 serial HD sessions due to severe volume overload earlier in the admission w/ significant improvement in volume status since admission however did have set back w/ Afib/RVR as above and required AV ablation (x2) and pacemaker placement Midodrine has been ordered/provided w/ HD for BP support. Oliguric/no benefit from bumex at this time Last week required 4 sessions and has been maintained on M// schedule at this time and do suspect some of his LE edema is chronic lymphedema however ongoing monitoring HD on 05/26 for ~2L with EPO/venofer and additional HD for 05/28 and was able to pull off additional 2L. Continued HD assistance from nephrology appreciated and will need ongoing HD at [facility] at discharge (3) Thrombocytopenia: Plan: IMPROVING finally. B12/folate wnl. Peripheral smear without suggestion TTP/HUS, no evidence for DIC. Plt lowest ~30 and was 49 but 34 on heparin gtt which has been discontinued and back on eliquis BID and platelets up to 52 --> 54 -->52 --> 57 ?2nd to Opdivo, liver dysfunction ?2nd to possible EBV infection given EBV PCR returned POSITIVE CMV, parvovirus titers pending s/p bone marrow biopsy 05/24 -- BM chromosome analysis/flow cytometry/pathology pending Monitor CBC/plt in AM (4) Autoimmune hepatitis treated with steroids: Plan: autoimmune hepatitis diagnosed July 2023 secondary to immunotherapy for renal cell ca and has been on chronic steroids since that time --> During [facility] stay was on burst for this issues as well as concern immunotherapy contributing to his thrombocytopenia hepatitis - 2nd to Opdivo? 2nd to hepatic congestion from volume overload? combination of factors? EBV IgM returned POSITIVE EBV PCR also positive indicating acute or subacute infection (or re-activation) This could be contributing to hepatitis & low platelets CMV & parvovirus titers pending HepA, HepB, and HepC ab's were NEGATIVE in 06/2023 LFTs remain mildly high despite steroids , ammonia wnl Initially was on 70mg/day weaning q7d by 10mg increments - Down to prednisone 20mg daily through 06/01 then to be 10mg x 7d - Continues w/ PJP prophy until prednisone is <20mg/day; use SS tmp/sulfa 1 tab M/W/F at HS for prophylaxis -- suspect this also could be contributing to ongoing LFT elevation. ?consider holding K levels wnl Obtained formal GI consult to ensure nothing else is causing the liver dysfunction - they agree that it is likely due to immunotherapy/autoimmune +/- right heart failure/passive congestion (5) Laura Cobb virus infection: Plan: EBV titers + IgM indicating current or recent infection --> PCR returned P OSITIVE which could either be primary infection OR re-activiation in setting of immunosuppression and do believe could be contributing to hepatitis/low plt/extreme fatigue as well however no rx for such/supportive care (6) PAD (peripheral artery disease): Plan: biphasic waveforms on LLE proximal vessels, monophasic waveforms on distal vessels LEFT FOOT/toes have dusky appearance, foot is cool, and cap refill is delayed especially the 3rd/4th/5th toes -ideally should be on antiplatelet agents and statin but both contraindicated right now due to abnormal LFTs and low platelets Consult for Dr Rajan chandler, saw 3/ (see note) --> pt has three vessel runoff/no acute intervention planned and can have outpt f/u. --> Notify sooner of any worsening/evidence for limb threatening CLI going forward and can (7) Acute hypoxic respiratory failure: Plan: NC at baseline Suspect multifactorial-o pulm edema from ESRD/liver dysfunction w/ hepatitis and cardiac issues w/ afib/RVR as above along with rhinovirus/PNA earlier in the stay s/p tx Was up to 4L w/ afib/RVR and now back to 2L and maintained and undergoing HD for volume management as outlined CPAP continued HS, NC during day but did encourage and discuss w/ patient to use w/ daytime napping as he has done at home in the past (8) Weakness: Plan: IMPROVING especially his hip proximal muscles -- deconditioning is the main culprit more than likely, although cannot rule out a steroid myopathy given long standing use B1, B12 wnl, CPK wnl Suspect possible acute mono or subacute mono likely contributing --> see above Continues with therapy while inpatient w/ plans for INTENSIVE rehab post-dc which he should get at [facility] -lumbar spine issue cannot be ruled out but less likely (no paresthesias or radicular pain of legs) (9) Pneumonia: Plan: Resolved. Suspected either viral vs superimposed bacterial infection 2nd to rhinovirus and completed 7+ days IV/PO abx and remains on BACTRIM for PJP proph given steroid use until <10mg daily on 06/02 recommended (10) Renal cell carcinoma: Plan: stage 4 -h/o right nephrectomy due to RCC follows with Dr Grijalva - cancer care clinic remaining left kidney has cysts vs masses on last imaging study - this bears watching (11) S/P TAVR (transcatheter aortic valve replacement): Plan: last echo with normal valve function (04/17) (12) Elevated troponin: Plan: peak HS trop 103 early in the admission without evidence for HENRY and suspected likely myocardial demand ischemia in setting volume overload from above/infection/pna/etc Plan Chronic conditions/resolved conditions: Hypothyroidism: TSH wnl and continues on usual Synthroid dosing Morbid Obesity: BMI 38- decreasing prednisone/HD for volume, eventual rehab and wt loss encouraged as able Pre-DM: A1c 6.1 in March and well controlled w/ SSI while inaptient with ongoing steroid use for autoimmune hepatitis/other as above BRBPR: 2nd to hemorrhoids vs fissures unable to visualize however is anal outlet. doubtful diverticulosis and given anusol suppositories starting 05/19 and has been stable since stopping DVT proph - eliquis 2.5mg BID Dispo continued inpatient stay and plan for [facility] next week (possible bed Friday per CM) and plan to apply for auth on Friday. /family updated in room 05/29 Admission and Anticipated Discharge Date Admission Date: April 28, 2024 Supervising Physician Co-Signing Physician Notes The patient was not seen by me. The chart was reviewed. Case discussed with DENNIS Schulte. Agree with assessment and plan Subjective Eval around lunch, family in room. Sitting up in the chair today. 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 Breathing stable on 2L. No increased SOB. No CP. Discussed [facility] hopefully with bed middle of next week and plans to apply for auth on Friday with hopes for dc this week. Questions/concerns addressed at this time. Physical Exam 2 Physical Exam: General: 68 yo male out of bed to the chair today, family in room, NAD but chronically ill appearing HEENT: head atraumatic, normocephalic, mmm, trachea midline, thick neck Chest: pacemaker to LEFT chest - ecchymosis/petechiae but no significant hematoma present CV: paced with PVCs, rates controlled, +systolic murmur LSB, bilateral pitting edema (worse in feet 2-3+, 2+ to legs), decreased cap refill but able to get pulse with doppler, sensation intact and appears warmer today than days prior continued dusky color to toes on the left foot to plantar aspect mid foot Resp: diminished in the bases but no significant tachypnea/cough, no wheezing, on 2L NC GI: +BS, slight distension but no overt tenderness, reducible chioma-umbilical hernia noted/no evidence for strangulation at this time Ext: b/l LE edema as noted to shins, pulses R foot 1-2+, L foot 1+ best, L pop pulses 1-2, L foot remains cold (slightly warmer today? no cellulitis/tenderness however toes remain dusky/underneath feet) Skin: numerous optifoams to arms, scattered bruising Psych: AOx3, cooperative and pleasant during encounter Results & Data Results & Data Vital Signs (Past 12 Hours) Vital Signs Temp Pulse Pulse Resp BP Pulse Ox O2 Del Method 05/29/24 07:17 81 105/67 05/29/24 07:09 36.8 C 81 18 83/56 L 97 Room Air 05/28/24 21:10 Nasal Cannula 05/28/24 20:48 36.6 C 79 20 96/63 L 97 Nasal Cannula O2 Flow Rate 05/29/24 07:17 05/29/24 07:09 05/28/24 21:10 2 05/28/24 20:48 2 Laboratory Results 05/29/24 08:39 05/29/24 08:39 PG Care Time/CCT Total # of Minutes Spent Total Time Spent with Patient: Total time spent is greater than 50% in coordination of care (as documented) at patient's floor/unit and/or counseling patient: Coding Level of Care Code 09276 SUB INP/OBS CARE 3/50MIN Diagnoses Atrial fibrillation with rapid ventricular response I48.91 End stage renal disease on dialysis N18.6; Z99.2 Thrombocytopenia D69.6 Autoimmune hepatitis treated with steroids K75.4 Laura Cobb virus infection B27.90 PAD (peripheral artery disease) I73.9 Acute hypoxic respiratory failure J96.01 Weakness R53.1 Pneumonia J18.9 Renal cell carcinoma C64.9 S/P TAVR (transcatheter aortic valve replacement) Z95.2 Elevated troponin R79.89
[2024-05-29 09:24] LABS: Albumin Globulin Ratio 1.1 (0.9-2); Albumin Level 2.7 gm/dl (3.4-5.0); BUN Creatinine Ratio 12.8 (10-20); Bilirubin,Total 2.1 mg/dl (0.2-1.0); Creatinine Clr Calc Pharmacy 31.5 ml/min; Globulin 2.4 gm/dl (2.5-4.0); Potassium 4.7 mmol/L (3.5-5.1); Total Protein 5.1 gm/dl (6.0-8.3)
[2024-05-29 09:36] LABS: Hematocrit (blood only) 31.5 % (42.0-52.0); Hemoglobin 8.8 g/dl (14.0-18.0); Mean Corpuscular Hemoglobin 27.9 pg (25.0-34.0); Mean Corpuscular Hgb Conc 27.9 g/dL (32.0-36.0); Nucleated RBC # (auto) 0.52 K/uL (0.00-0.12); Platelet Count 57 K/uL (130-400); RDW Coefficient of Variation 31.8 % (11.5-14.5); RDW Standard Deviation 109.2 fL (36.4-46.3); Red Blood Count 3.15 M/uL (4.70-6.10); White Blood Count 8.71 K/ul (4.8-10.8)
--- NOTE | 2024-05-29 11:22 | Nephrology Progress Note ---
Date of Service May 29, 2024 Assessment & Plan (1) End stage renal disease on dialysis: (2) Anemia: (3) Renal cell carcinoma: (4) Acute pulmonary edema: (5) Weakness: (6) Hyperkalemia: (7) Pulmonary edema: (8) Congestive heart failure (CHF): Plan 68-year-old gentleman with end-stage kidney disease with solitary kidney and hypertensive nephrosclerosis, Started on hemodialysis after having had tunneled dialysis catheter on 04/16/2024. He was admitted with generalized weakness, pulmonary congestion and significant volume overload and over last few days had UF challenge and more than 20 kg weight loss. Had A-fib with RVR and had AV maggie ablation and pacemaker placement on 05/13/2024. Had second AV maggie ablation last week. Has been getting physical therapy, [facility]. Has significant bilateral lower extremity edema although no shortness of breath. Electrolyte acceptable. Blood pressure has been relatively low which has been a limiting factor in aggressive UF. Overall feeling better but remains deconditioned. Blood pressure low but stable and asymptomatic. --Plan for next dialysis Friday, will try UF at least 3 L and then consider extra treatment Friday. --Epogen with dialysis next week --Midodrine 10 mg prior to dialysis --continue renal vitamin and phosphate binder. --Right arm nephrology precaution --Dose medications for less than 10. Admission and Anticipated Discharge Date Admission Date: April 28, 2024 Subjective Tiny was seen and evaluated this morning. He reports noticing slight improvement in his strength with physical therapy although somewhat difficult with significant lower extremity edema. Blood pressure has been running low, UF with dialysis has been limited because of relatively low blood pressure despite getting midodrine. Currently in sinus rhythm after second AV maggie ablation last week. Review of Systems Review of Systems: All systems reviewed & are unremarkable except as noted in Subjective Physical Exam Constitutional: WD/WN, vitals as above no acute distress Eyes: + anicteric sclerae Respiratory: Auscultation: + diminished lung sounds Cardiovascular: Rate/Rhythm: regular rate and regular rhythm Heart Sounds: normal S1 and normal S2 Extremities: + edema (2 to 3 + b/l LE edema) and + AV fistula (Rt IJ TDC) Skin: + turgor decreased, + lesion, + skin atr ophy and + ecchymosis Neurologic: no focal motor deficits Psychiatric: Orientation: alert and oriented x 3 Results & Data Vital Signs (Past 12 Hours) Vital Signs Temp Pulse Pulse Resp BP Pulse Ox O2 Del Method 05/29/24 08:00 Nasal Cannula 05/29/24 07:17 81 105/67 05/29/24 07:09 36.8 C 81 18 83/56 L 97 Room Air O2 Flow Rate 05/29/24 08:00 2 05/29/24 07:17 05/29/24 07:09 PG Care Time/CCT Total # of Minutes Spent Total Time Spent with Patient: Total time spent is greater than 50% in coordination of care (as documented) at patient's floor/unit and/or counseling patient: Coding Level of Care Code 42029 SUB INP/OBS CARE 2/35MIN Diagnoses End stage renal disease on dialysis N18.6; Z99.2 Anemia D64.9 Renal cell carcinoma C64.9 Acute pulmonary edema J81.0 Weakness R53.1 Hyperkalemia E87.5 Pulmonary edema J81.0 Chronicity: acute Congestive heart failure (CHF) I50.9 (7) Pulmonary edema Chronicity: acute Qualified Code(s): J81.0 - Acute pulmonary edema
[2024-05-29] MEDS: ALBUMIN 25% 25 GM/100 ML VIAL IV SCH (22:10)
--- NOTE | 2024-05-30 | XRay Report ---
Exam(s): XR CXR 1 VIEW EXAM: XR Chest, 1 View CLINICAL HISTORY: Dyspnea. TECHNIQUE: Frontal view of the chest. COMPARISON: Chest radiograph 05/09/2024 FINDINGS: Lungs: Bilateral airspace opacities are worse on the right. Pleural space: Small bilateral pleural effusions. No pneumothorax. Heart: Cardiomegaly. Redemonstrated cardiac valve replacement. Mediastinum: Unremarkable. Normal mediastinal contour. Bones/joints: Unremarkable. No acute fracture. Tubes, lines and devices: Interval placement of a left cardiac pacer with a single lead overlying the expected location of the right ventricle. Stable right tunneled dialysis catheter. IMPRESSION: 1. Bilateral airspace opacities, worse on the right, may represent pulmonary edema and/or atypical infection. 2. Small bilateral pleural effusions. 3. Cardiomegaly. 4. Interval placement of a left cardiac pacer with a single lead overlying the expected location of the right ventricle. Electronically signed by: Shannan Oropeza MD 05/29/24 23:59 PM
[2024-05-30] MEDS: BUMETANIDE 2 MG in SYRINGE 0 ML IV ONE (00:04)
[2024-05-30] MEDS: CEFEPIME 2000MG 2,000 MG/20 ML SYR IV ONE (00:04)
--- NOTE | 2024-05-30 03:01 | Communication Note ---
Date of Service: May 30, 2024 S/O: Patient with concerns of worsening subjective dyspnea, with O2Sats in the low 90s on 6 L O2 NC. Patient feels his dyspnea is the worst since he was admitted to the hospital. CPAP declined due to discomfort with the mask, settings, hospital CPAP apparatus. Patient did endorse use of the CPAP during his hospital stay. Pt's dyspnea in context of hemodialysis a few days ago and low BP's since that time w/ PMHx concerning for CHF and ESRD (~ 50 mL urine output daily per pt). Repeat CXR ordered with findings concerning for pulmonary edema or infection of r. lungs. S/P: Cefepime, 2 g, IV given. MRSA nares ordered. Bumetanide, 2 mg, IV ordered. Albumin, 50 mg, IV ordered. Patient transferred to PCU level of care. Cefepime, 2 g, IV, q8hrs ordered, starting 8 am, 05/30/24. Resident Activity Tracking Resident Involvement: Resident Care Provided Care Provided: Adult Hospital Medicine
[2024-05-30 06:27] LABS: Hematocrit (blood only) 27.3 % (42.0-52.0); Hemoglobin 7.9 g/dl (14.0-18.0); Mean Corpuscular Hemoglobin 28.4 pg (25.0-34.0); Mean Corpuscular Hgb Conc 28.9 g/dL (32.0-36.0); Mean Corpuscular Volume 98.2 fL (80.0-100.0); Mean Platelet Volume 11.1 fL (9.4-12.4); Nucleated RBC # (auto) 0.49 K/uL (0.00-0.12); Nucleated RBC % (auto) 6.9 %; Platelet Count 55 K/uL (130-400); RDW Coefficient of Variation 30.6 % (11.5-14.5); RDW Standard Deviation 103.9 fL (36.4-46.3); Red Blood Count 2.78 M/uL (4.70-6.10); White Blood Count 7.14 K/ul (4.8-10.8)
[2024-05-30 06:46] LABS: Albumin Level 3.3 gm/dl (3.4-5.0); Bilirubin Direct 1.4 mg/dl (0-0.2); Bilirubin,Total 2.4 mg/dl (0.2-1.0); Total Protein 5.4 gm/dl (6.0-8.3)
--- NOTE | 2024-05-30 10:39 | Nephrology Progress Note ---
Date of Service May 30, 2024 Assessment & Plan (1) End stage renal disease on dialysis: (2) Anemia: (3) Renal cell carcinoma: (4) Acute pulmonary edema: (5) Weakness: (6) Hyperkalemia: (7) Pulmonary edema: (8) Congestive heart failure (CHF): Plan 68-year-old gentleman with end-stage kidney disease with solitary kidney and hypertensive nephrosclerosis, Started on hemodialysis after having had tunneled dialysis catheter on 04/16/2024. He was admitted with generalized weakness, pulmonary congestion and significant volume overload and over last few days had UF challenge and more than 20 kg weight loss. Had A-fib with RVR and had AV maggie ablation and pacemaker placement on 05/13/2024. Had second AV maggie ablation last week. Has been getting physical therapy, [facility]. Has significant bilateral lower extremity edema and worsening shortness of breath with pulmonary congestion, pleural effusion. Blood pressure has been relatively low which has been a limiting factor in aggressive UF. --Plan for urgent 2 hours dialysis this afternoon for extra ultrafiltration however may not be possible if blood pressure drops further, may need [id number] dialysis daily for few days to improve volume status. --Epogen with dialysis. --Midodrine 10 mg prior to dialysis --continue renal vitamin and phosphate binder. --Right arm nephrology precaution --Dose medications for less than 10. Admission and Anticipated Discharge Date Admission Date: April 28, 2024 Subjective Tiny was seen and evaluated this morning. He has been having more respiratory distress overnight and chest x-ray showed bilateral pleural effusion and right sided pulmonary congestion versus infiltrate. Has been on BiPAP. Continues to have significant lower extremity edema. Blood pressure has been low, UF with dialysis has been limited because of relatively low blood pressure despite getting midodrine. Review of Systems Review of Systems: Detailed review of system was done and pertinent positives and negatives are mentioned above. Physical Exam Constitutional: WD/WN, vitals as above no acute distress Eyes: + anicteric sclerae Respiratory: Auscultation: + diminished lung sounds Cardiovascular: Rate/Rhythm: regular rate and regular rhythm Heart Sounds: normal S1 and normal S2 Extremities: + edema (2 to 3 + b/l LE edema), + vascular access device (Rt IJ TDC) and + AV fistula (Rt IJ TDC) Skin: + turgor decreased, + lesion, + skin atr ophy and + ecchymosis Neurologic: no focal motor deficits Psychiatric: Orientation: alert and oriented x 3 Results & Data Vital Signs (Past 12 Hours) Vital Signs Temp Pulse Pulse Resp BP Pulse Ox O2 Del Method 05/30/24 10:08 80 05/30/24 07:02 36.3 C L 81 18 96/67 L 98 BiPAP 05/30/24 04:49 36.6 C 81 18 97/68 L 94 BiPAP 05/30/24 03:05 84 19 99 05/30/24 01:00 Nasal Cannula 05/30/24 00:56 36.4 C L 79 28 H 104/68 82 L Nasal Cannula O2 Flow Rate FiO2 05/30/24 10:08 05/30/24 07:02 05/30/24 04:49 05/30/24 03:05 30 05/30/24 01:00 6 05/30/24 00:56 6 PG Care Time/CCT Total # of Minutes Spent Total Time Spent with Patient: Total time spent is greater than 50% in coordination of care (as documented) at patient's floor/unit and/or counseling patient: Coding Level of Care Code 55045 SUB INP/OBS CARE 3/50MIN Diagnoses End stage renal disease on dialysis N18.6; Z99.2 Anemia D64.9 Renal cell carcinoma C64.9 Acute pulmonary edema J81.0 Weakness R53.1 Hyperkalemia E87.5 Pulmonary edema J81.0 Chronicity: acute Congestive heart failure (CHF) I50.9 (7) Pulmonary edema Chronicity: acute Qualified Code(s): J81.0 - Acute pulmonary edema
[2024-05-30] MEDS ORDERED: CEFEPIME 2000MG 2,000 MG/20 ML SYR IV SCH (12:00)
[2024-05-30] MEDS: EPOETIN ALFA 10,000 UNITS/ML VIAL IV STA (14:20)
[2024-05-30] MEDS: CEFEPIME 1000MG 1,000 MG/10 ML SYR IV SCH (16:45)
[2024-05-30] MEDS: BUMETANIDE 1 MG TAB PO SCH ×2 (16:45→16:59)
--- NOTE | 2024-05-30 18:10 | Hospitalist Progress Note ---
Date of Service May 30, 2024 Assessment & Plan (1) Acute hypoxic respiratory failure: Plan: 68yo HD dependent ESRD since March 2024, afib, renal cell ca (s/p R nephrectomy for renal cell ca, on opdivo), HLD, Hypothyroidism, SARAH as well as autoimmune hepatitis w/ long standing steroids ~1yr presented for b/l leg weakness on 05/18 and found to be positive for +rhinovirus/enterovirus and also tx for PNA while inpatient and has had complicated hospital course recurrent acute hypoxic respiratory failure overnight 05/29 - 05/30. Transferred to PCU - suspected to be primarily volume overload, discussed with Dr. Lawson, able to have ultrafiltration 1.5 L this afternoon, however, respiratory status does not seem to have improved significantly - possilbe pneumonia - cefepime started overnight, MRSA nares again negative. I reviewed CXR film is is overall unchanged to improved from previous with bibasilar R>L opacities, R>L pleural effusion -I ordered procal which is significantly elevated in 3's (has never been normal this admission, can be elevated in ESRD but would not expect this much) -continue cefepime - broaden to carbapenem if worsening, since he has had several courses of cefepime this admission -has been on bactrim for PJP prophylaxis -ideally would get chest CT however cannot lie flat -PE less likely since has had ongoing anticoagulation, no chest pain, clearly has abnormal lung exam with crackles throughout -evaluate for possible sepsis with blood cultures (has HD line), UA, repeat CBC CMP procal, lactic acid -low threshold for ICU transfer -discussed plan of care with nursing staff (2) Atrial fibrillation with rapid ventricular response: Plan: Presentation on admission: chronic, long-standing permanent a.fib followed by outside cardiology near [place] Early in admission had had poor rate control despite meto succ BID + cardizem CD 120mg HS and on chronic eliquis 2.5mg BID for AC (held last week for procedures/heparin gtt) Was poor candidate for amio w/ abn LFTs and autoimmune hepatitis, prior cardioversion in past not successful AV node ablation with permanent pacemaker insertion on 05/13/[address] Paula shahually had recurrent A-fib repeat ablation with Dr Kyle on 05/25 continue apixaban heart rate has been in 80s, telemetry has been interpreted as A-fib past 24 hours (3) End stage renal disease on dialysis: Plan: New HD dependent since March 24/2025. Hx solitary kidney status s/p R nephrectomy in the past for renal cell ca. He had 9 days of serial HD early in stay for severe volume overload. UF has been limited by hypotension, on midodrine. Several episodes of acute pulmonary edema this admission. UF today and will have HD tomorrow and potential several days in a row, discussed with Dr. Lawson -his lowest weight 139 kg mid Apr, now up to 146 with significantly more anasarca/LE edema than when I saw him 2 weeks ago -bumex 4 mg po bid added (4) Thrombocytopenia: Plan: IMPROVING finally. B12/folate wnl. Peripheral smear without suggestion TTP/HUS, no evidence for DIC. Plt lowest ~30 and was 49 but 34 on heparin gtt which has been discontinued and back on eliquis BID and platelets up to 52 --> 54 -->52 --> 57 ?2nd to Opdivo, liver dysfunction ?2nd to possible EBV infection given EBV PCR returned POSITIVE CMV, parvovirus titers pending s/p bone marrow biopsy 05/24 -- BM chromosome analysis/flow cytometry/pathology pending Plt stable at 55 (5) Autoimmune hepatitis treated with steroids: Plan: autoimmune hepatitis diagnosed July 2023 secondary to immunotherapy for renal cell ca and has been on chronic steroids since that time --> During Mar stay was on burst for this issues as well as concern immunotherapy contributing to his thrombocytopenia hepatitis - 2nd to Opdivo? 2nd to hepatic congestion from volume overload? combination of factors? EBV IgM returned POSITIVE EBV PCR also positive indicating acute or subacute infection (or re-activation) This could be contributing to hepatitis & low platelets CMV & parvovirus titers pending HepA, HepB, and HepC ab's were NEGATIVE in 06/2023 LFTs remain mildly high despite steroids , ammonia wnl Initially was on 70mg/day weaning q7d by 10mg increments - Down to prednisone 20mg daily through 06/01 then to be 10mg x 7d - Continues w/ PJP prophy until prednisone is <20mg/day; use SS tmp/sulfa 1 tab M/W/F at HS for prophylaxis - continue for now Obtained formal GI consult to ensure nothing else is causing the liver dysfunction - they agree that it is likely due to immunotherapy/autoimmune +/- right heart failure/passive congestion (6) PAD (peripheral artery disease): Plan: biphasic waveforms on LLE proximal vessels, monophasic waveforms on distal vessels LEFT FOOT/toes have dusky appearance, foot is cool, and cap refill is delayed especially the 3rd/4th/5th toes -ideally should be on antiplatelet agents and statin but both contraindicated right now due to abnormal LFTs and low platelets Consult for Dr Rajan chandler, saw 3/ (see note) --> pt has three vessel runoff/no acute intervention planned and can have outpt f/u. --> Notify sooner of any worsening/evidence for limb threatening CLI going forward He has blue toes syndrome - this is newish and since last EP procedure, he could have had atheroembolic shower caused by procedure Suspect he also has significant small vessel vascular disease and poor tissue perfusion related to multiple acute and chronic problems (7) Weakness: Plan: IMPROVING especially his hip proximal muscles -- deconditioning is the main culprit more than likely, although cannot rule out a steroid myopathy given long standing use B1, B12 wnl, CPK wnl Suspect possible acute mono or subacute mono likely contributing --> see above Continues with therapy while inpatient w/ plans for INTENSIVE rehab post-dc which he should get at [facility] -lumbar spine issue cannot be ruled out but less likely (no paresthesias or radicular pain of legs) Plan Stage 4 renal cell carcinoma - hx R nephrectomy, disease progression has been slow, on Opdivo followed by Dr. Grijalva at [facility]. L kidney cysts or masses on most recent imaging. 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 Could be contributing to hepatitis thrombocytopenia and weakness. Supportive care Chronic conditions/resolved conditions: Elevated troponin - peak HS trop 103 early in the admission without evidence for HENRY and suspected likely myocardial demand ischemia in setting volume overload from above/infection/pna/etc Pneumonia - completed treatment early in stay for enterovirus/rhinovirus and possible superimposed bacterial pneumonia Aortic stenosis s/p TAVR - last echo with normal valve function (04/17) Hypothyroidism: TSH wnl and continues on usual Synthroid dosing Morbid Obesity: BMI 38- decreasing prednisone/HD for volume, eventual rehab and wt loss encouraged as able Pre-DM: A1c 6.1 in March and well controlled w/ SSI while inaptient with ongoing steroid use for autoimmune hepatitis/other as above BRBPR: 2nd to hemorrhoids vs fissures unable to visualize however is anal outlet. doubtful diverticulosis and given anusol suppositories starting 05/19 and has been stable since stopping DVT proph - eliquis 2.5mg BID Dispo continued inpatient stay and plan for [facility] updated his in the room 05/30 x 2 Admission and Anticipated Discharge Date Admission Date: April 28, 2024 Subjective Seen before and after dialysis today Overnight respiratory distress, increased hypoxia, CXR looks unchanged to me, given bumex 2mg with little UOP, cefepime started, has been on Bipap since then which helped with the dyspnea He is dyspneic at rest Following UF for 1.5L remains dyspneic and we do not see a big improvement Physical Exam 2 Physical Exam: PHYSICAL EXAMINATION Last 24h vital signs reviewed, see documentation in flowsheet General: appears short of breath HEENT: Normocephalic, atraumatic, pupils round and equal, sclerae anicteric, no conjunctival injection, moist mucus membranes Lungs: increased work of breathing, tachypneic, wearing BiPAP, diffuse crackles posteriorly no wheezing Heart: Regular rate and rhythm, no murmurs. No JVD Abdomen: Soft, nontender, nondistended. Bowel sounds present. Extremities: Warm, dry, well-perfused. 34+ bilateral lower extremity edema, this is clearly worse than when I last saw him 2 weeks ago multiple purple toes on left foot including great toe. feet and toes are cool bilaterally Neuro: Alert and oriented x 4, face symmetric, moves 4 extremities well Psych: Normal affect and behavior Results & Data Results & Data Vital Signs (Past 12 Hours) Vital Signs Temp Pulse Pulse Pulse Resp BP BP 05/30/24 15:56 36.4 C L 78 05/30/24 15:45 80 85/61 L 05/30/24 15:30 80 84/60 L 05/30/24 15:00 80 92/65 L 05/30/24 15:00 80 05/30/24 14:30 80 105/68 05/30/24 14:15 80 101/71 05/30/24 14:00 70 83/32 L 05/30/24 13:47 80 105/70 05/30/24 13:41 36.5 C 81 05/30/24 11:11 36.7 C 80 18 102/68 05/30/24 11:07 05/30/24 10:08 80 05/30/24 07:02 36.3 C L 81 18 96/67 L BP Pulse Ox O2 Del Method O2 Flow Rate FiO2 05/30/24 15:56 93/61 L 05/30/24 15:45 05/30/24 15:30 05/30/24 15:00 05/30/24 15:00 05/30/24 14:30 05/30/24 14:15 05/30/24 14:00 05/30/24 13:47 05/30/24 13:41 05/30/24 11:11 93 Nasal Cannula 6 05/30/24 11:07 CPAP 30 05/30/24 10:08 05/30/24 07:02 98 BiPAP Laboratory Results 05/30/24 05:13 05/29/24 08:39 PG Care Time/CCT Total # of Minutes Spent Total Time Spent with Patient: Total time spent is greater than 50% in coordination of care (as documented) at patient's floor/unit and/or counseling patient: Coding Level of Care Code 59886 SUB INP/OBS CARE 3/50MIN Diagnoses Acute hypoxic respiratory failure J96.01 Atrial fibrillation with rapid ventricular response I48.91 End stage renal disease on dialysis N18.6; Z99.2 Thrombocytopenia D69.6 Autoimmune hepatitis treated with steroids K75.4 PAD (peripheral artery disease) I73.9 Weakness R53.1
[2024-05-30 18:48] LABS: Albumin Globulin Ratio 1.5 (0.9-2); Albumin Level 3.2 gm/dl (3.4-5.0); BUN Creatinine Ratio 13.8 (10-20); Bilirubin,Total 2.5 mg/dl (0.2-1.0); Calcium 9.2 mg/dl (8.6-10.3); Creatinine Clr Calc Pharmacy 32.7 ml/min; Globulin 2.1 gm/dl (2.5-4.0); Potassium 4.5 mmol/L (3.5-5.1); Total Protein 5.3 gm/dl (6.0-8.3)
[2024-05-30 19:00] LABS: Hemoglobin 8.1 g/dl (14.0-18.0); Mean Corpuscular Hemoglobin 28.6 pg (25.0-34.0); Mean Corpuscular Hgb Conc 28.9 g/dL (32.0-36.0); Mean Corpuscular Volume 98.9 fL (80.0-100.0); Nucleated RBC # (auto) 0.53 K/uL (0.00-0.12); Nucleated RBC % (auto) 6.6 %; Platelet Count 57 K/uL (130-400); Platelet Estimate Decreased (Normal); RDW Coefficient of Variation 31.5 % (11.5-14.5); RDW Standard Deviation 107.4 fL (36.4-46.3); Red Blood Count 2.83 M/uL (4.70-6.10); White Blood Count 8.07 K/ul (4.8-10.8)
[2024-05-31 08:24] LABS: BUN Creatinine Ratio 13.2 (10-20); Calcium 9.1 mg/dl (8.6-10.3); Creatinine Clr Calc Pharmacy 27.5 ml/min; Phosphorus 5.7 mg/dl (2.5-4.9); Potassium 4.6 mmol/L (3.5-5.1)
--- NOTE | 2024-05-31 11:49 | Nephrology Progress Note ---
Date of Service May 31, 2024 Assessment & Plan (1) End stage renal disease on dialysis: (2) Anemia: (3) Renal cell carcinoma: (4) Acute pulmonary edema: (5) Weakness: (6) Pulmonary edema: Plan 68-year-old gentleman with end-stage kidney disease with solitary kidney and hy pertensive nephrosclerosis, Started on hemodialysis after having had tunneled dialysis catheter on 04/16/2024. He was admitted with generalized weakness, pulmonary congestion and significant volume overload and over last few days had UF challenge and more than 20 kg weight loss. Had A-fib with RVR and had AV maggie ablation and pacemaker placement on 05/13/2024. Had second AV maggie ablation last week. Has been getting physical therapy but limited due to LE edema and heaviness, generalized weakness, [facility]. Has significant bilateral lower extremity edema and worsening shortness of breath with pulmonary congestion, pleural effusion. Had extra hemodialysis session for 2 hours yesterday had 1.5 L UF. --Plan for 4 hours dialysis and 3 L ultrafiltration if blood pressure allows, plan for [id number] dialysis daily for few days to improve volume status. --Epogen given on 05/30/24 --Midodrine 10 mg prior to dialysis --continue renal vitamin and phosphate binder. --Right arm nephrology precaution --Dose medications for less than 10. Admission and Anticipated Discharge Date Admission Date: April 28, 2024 Subjective Tiny was seen and evaluated during hemodialysis this morning. Had 1.6 L UF yesterday. He has been tolerating UF, BP stable. Continues to have significant lower extremity edema. overall feels poorly, more fatigued. Review of Systems Review of Systems: Detailed review of system was done and pertinent positives and negatives are mentioned above. Physical Exam Constitutional: WD/WN, vitals as above no acute distress Eyes: + anicteric sclerae Respiratory: Auscultation: + diminished lung sounds Cardiovascular: Rate/Rhythm: regular rate and regular rhythm Heart Sounds: normal S1 and normal S2 Extremities: + edema (2 to 3 + b/l LE edema), + vascular access device (Rt IJ TDC) and + AV fistula (Rt IJ TDC) Skin: + turgor decreased, + lesion, + skin atr ophy and + ecchymosis Neurologic: no focal motor deficits and not confused Psychiatric: Orientation: alert and oriented x 3 Results & Data Vital Signs (Past 12 Hours) Vital Signs Temp Pulse Pulse Pulse Resp BP BP 05/31/24 11:30 80 95/63 L 05/31/24 11:00 80 109/62 05/31/24 10:30 80 108/75 05/31/24 10:00 80 120/82 05/31/24 09:50 78 113/77 05/31/24 09:42 36.5 C 78 05/31/24 08:00 05/31/24 08:00 05/31/24 07:36 36.1 C L 80 20 05/31/24 07:23 82 20 05/31/24 07:00 80 05/31/24 04:15 36.7 C 81 19 97/61 L 05/31/24 02:40 82 16 05/30/24 23:57 36.6 C 79 20 104/65 BP Pulse Ox O2 Del Method O2 Flow Rate FiO2 05/31/24 11:30 05/31/24 11:00 05/31/24 10:30 05/31/24 10:00 05/31/24 09:50 05/31/24 09:42 05/31/24 08:00 100 BiPAP 25 05/31/24 08:00 Nasal Cannula 5 05/31/24 07:36 98/65 L 98 BiPAP 05/31/24 07:23 98 25 05/31/24 07:00 05/31/24 04:15 98 BiPAP 05/31/24 02:40 100 25 05/30/24 23:57 99 BiPAP PG Care Time/CCT Total # of Minutes Spent Total Time Spent with Patient: Total time spent is greater than 50% in coordination of care (as documented) at patient's floor/unit and/or counseling patient: Coding Level of Care Code 66861 SUB INP/OBS CARE 2/35MIN Diagnoses End stage renal disease on dialysis N18.6; Z99.2 Anemia D64.9 Renal cell carcinoma C64.9 Acute pulmonary edema J81.0 Weakness R53.1 Pulmonary edema J81.0 Chronicity: acute (6) Pulmonary edema Chronicity: acute Qualified Code(s): J81.0 - Acute pulmonary edema
[2024-05-31] MEDS ORDERED: COUGH DROP (SUGAR FREE) LOZ 24 LOZ/1 BOX BUCCAL PRN (15:40)
--- NOTE | 2024-05-31 17:20 | Hospitalist Progress Note ---
Date of Service May 31, 2024 Assessment & Plan (1) Acute hypoxic respiratory failure: Plan: 68yo HD dependent ESRD since March 2024, afib, renal cell ca (s/p R nephrectomy for renal cell ca, on opdivo), HLD, Hypothyroidism, SARAH as well as autoimmune hepatitis w/ long standing steroids ~1yr presented for b/l leg weakness on 05/18 and found to be positive for +rhinovirus/enterovirus and also tx for PNA while inpatient and has had complicated hospital course recurrent acute hypoxic respiratory failure overnight 05/29 - 05/30. Transferred to PCU - component of volume overload/pulmonary edema - dialysis 05/30 pm and also this am. Discussed with Dr. Lawson - plans for a few daily runs because edema is so severe - probable pneumonia - CXR film is is overall unchanged to improved from previous with bibasilar R>L opacities, R>L pleural effusion, MRSA nares negative so unlikely MRSA pna -procal significantly elevated (has never been normal this admission, can be elevated in ESRD but would not expect this much) - check again in AM -continue cefepime since he's responding favorably so far - broaden to carbapenem if worsening, since he has had at least one course of cefepime this admission -has been on bactrim for PJP prophylaxis -ideally would get chest CT however cannot lie flat -PE less likely since has had ongoing anticoagulation, no chest pain, clearly has abnormal lung exam with crackles throughout -lactic acid chronically elevated, flat trend -blood cultures pending, UA still pending (urinates some) Overall he seems to have improved with the antibiotics. I wonder if he's been infected and that is why BP has been softer than usual past days/week. BP improved to low 100s today. (2) Atrial fibrillation with rapid ventricular response: Plan: Presentation on admission: chronic, long-standing permanent a.fib followed by outside cardiology near [place] Early in admission had had poor rate control despite meto succ BID + cardizem CD 120mg HS. Intolerant of increase because of hypotension. Was poor candidate for amio w/ abn LFTs and autoimmune hepatitis, prior cardioversion in past not successful AV node ablation with permanent pacemaker insertion on 05/13/[address] Paula estrada ventually had recurrent A-fib repeat ablation with Dr Kyle on 05/25 continue apixaban heart rate has been in 80s, telemetry has been interpreted as A-fib last few days and paced today (3) End stage renal disease on dialysis: Plan: New HD dependent since March 24/2025. Hx solitary kidney status s/p R nephrectomy in the past for renal cell ca. He had 9 days of serial HD early in stay for severe volume overload. UF has been limited by hypotension, on midodrine. Several episodes of acute pulmonary edema this admission. Will have HD several days in a row, discussed with Dr. Lawson -his lowest weight 139 kg mid Apr, now up to 146 with significantly more anasarca/LE edema than when I saw him 2 weeks ago -bumex 4 mg po bid added (4) Thrombocytopenia: Plan: IMPROVING finally. B12/folate wnl. Peripheral smear without suggestion TTP/HUS, no evidence for DIC. Plt lowest ~30 and was 49 but 34 on heparin gtt which has been discontinued and back on eliquis BID and platelets up to 52 --> 54 -->52 --> 57 ?2nd to Opdivo, liver dysfunction ?2nd to possible EBV infection given EBV PCR returned POSITIVE CMV, parvovirus titers pending s/p bone marrow biopsy 05/24 -- BM chromosome analysis/flow cytometry/pathology pending path still pending AM CBC (5) Autoimmune hepatitis treated with steroids: Plan: autoimmune hepatitis diagnosed July 2023 secondary to immunotherapy for renal cell ca and has been on chronic steroids since that time --> During Mar stay was on burst for this issues as well as concern immunotherapy contributing to his thrombocytopenia hepatitis - 2nd to Opdivo? 2nd to hepatic congestion from volume overload? combination of factors? EBV IgM returned POSITIVE EBV PCR also positive indicating acute or subacute infection (or re-activation) This could be contributing to hepatitis & low platelets CMV & parvovirus titers pending HepA, HepB, and HepC ab's were NEGATIVE in 06/2023 LFTs remain mildly high despite steroids , ammonia wnl Initially was on 70mg/day weaning q7d by 10mg increments - Down to prednisone 20mg daily through 06/01 then to be 10mg x 7d - Continues w/ PJP prophy until prednisone is <20mg/day; use SS tmp/sulfa 1 tab M/W/F at HS for prophylaxis - continue for now Obtained formal GI consult to ensure nothing else is causing the liver dysfunction - they agree that it is likely due to immunotherapy/autoimmune +/- right heart failure/passive congestion (6) PAD (peripheral artery disease): Plan: biphasic waveforms on LLE proximal vessels, monophasic waveforms on distal vessels -ideally should be on antiplatelet agents and statin but both contraindicated right now due to abnormal LFTs and low platelets Consult for Dr Rajan chandler, saw 05/25 (see note) --> pt has three vessel runoff/no acute intervention planned and can have outpt f/u. --> Notify sooner of any worsening/evidence for limb threatening CLI going forward He has blue toes syndrome - a few weeks ago had blue tip of 2nd toe that improved, recently much worse with multiple blue toes - suspect atheroembolic shower caused by most recent EP procedure Suspect he also has significant small vessel vascular disease and poor tissue perfusion related to multiple acute and chronic problems (7) Weakness: Plan: IMPROVING especially his hip proximal muscles -- deconditioning is the main culprit more than likely, although cannot rule out a steroid myopathy given long standing use B1, B12 wnl, CPK wnl Suspect possible acute mono or subacute mono likely contributing --> see above Continues with therapy while inpatient w/ plans for INTENSIVE rehab post-dc which he should get at [facility] -lumbar spine issue cannot be ruled out but less likely (no paresthesias or radicular pain of legs) Plan Stage 4 renal cell carcinoma - hx R nephrectomy, disease progression has been slow, on Opdivo followed by Dr. Grijalva at [facility]. L kidney cysts or masses on most recent imaging. 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 Could be contributing to hepatitis thrombocytopenia and weakness. Supportive care Chronic conditions/resolved conditions: Elevated troponin - peak HS trop 103 early in the admission without evidence for HENRY and suspected likely myocardial demand ischemia in setting volume overload from above/infection/pna/etc Pneumonia - completed treatment early in stay for enterovirus/rhinovirus and possible superimposed bacterial pneumonia Aortic stenosis s/p TAVR - last echo with normal valve function (04/17) Hypothyroidism: TSH wnl and continues on usual Synthroid dosing Morbid Obesity: BMI 38- decreasing prednisone/HD for volume, eventual rehab and wt loss encouraged as able Pre-DM: A1c 6.1 in March and well controlled w/ SSI while inaptient with ongoing steroid use for autoimmune hepatitis/other as above BRBPR: 2nd to hemorrhoids vs fissures unable to visualize however is anal outlet. doubtful diverticulosis and given anusol suppositories starting 05/19 and has been stable since stopping DVT proph - eliquis 2.5mg BID Dispo continued inpatient stay and plan for [facility] updated his in the room 05/31 Admission and Anticipated Discharge Date Admission Date: April 28, 2024 Subjective Don didn't feel much better after dialysis last night but felt much better this am Still more hypoxic than recent baseline On dialysis currently L toes continue to be purplish as well as forefoot Physical Exam 2 Physical Exam: PHYSICAL EXAMINATION Last 24h vital signs reviewed, see documentation in flowsheet General: on HD HEENT: Normocephalic, atraumatic, pupils round and equal, sclerae anicteric, no conjunctival injection, moist mucus membranes Lungs: WOB more comfortable, bilateral posterior crackles, CTA ant Heart: Regular rate and rhythm, no murmurs. No JVD Abdomen: Soft, nontender, nondistended. Bowel sounds present. Extremities: Warm, dry, well-perfused. 4+ bilateral lower extremity edema, this is clearly worse than when I last saw him 2 weeks ago multiple purple toes on left foot including great toe, plantar forefoot is mottled. feet and toes are cool bilaterally Neuro: Alert and oriented x 4, face symmetric, moves 4 extremities well Psych: Normal affect and behavior Results & Data Results & Data Vital Signs (Past 12 Hours) Vital Signs Temp Pulse Pulse Pulse Pulse Resp BP 05/31/24 15:34 36.5 C 80 19 05/31/24 15:00 80 05/31/24 14:00 36.5 C 80 05/31/24 13:30 71 96/71 L 05/31/24 13:00 80 100/66 05/31/24 12:30 80 111/71 05/31/24 12:00 80 117/69 05/31/24 11:30 80 95/63 L 05/31/24 11:00 80 109/62 05/31/24 10:30 80 108/75 05/31/24 10:00 80 120/82 05/31/24 09:50 78 113/77 05/31/24 09:42 36.5 C 78 05/31/24 08:00 05/31/24 08:00 05/31/24 07:36 36.1 C L 80 20 05/31/24 07:23 82 20 05/31/24 07:00 80 BP BP Pulse Ox O2 Del Method O2 Flow Rate FiO2 05/31/24 15:34 103/69 99 Nasal Cannula 4.0 05/31/24 15:00 05/31/24 14:00 100/66 05/31/24 13:30 05/31/24 13:00 05/31/24 12:30 05/31/24 12:00 05/31/24 11:30 05/31/24 11:00 05/31/24 10:30 05/31/24 10:00 05/31/24 09:50 05/31/24 09:42 05/31/24 08:00 100 BiPAP 25 05/31/24 08:00 Nasal Cannula 5 05/31/24 07:36 98/65 L 98 BiPAP 05/31/24 07:23 98 25 05/31/24 07:00 Laboratory Results 05/30/24 18:07 05/31/24 06:47 PG Care Time/CCT Total # of Minutes Spent Total Time Spent with Patient: Total time spent is greater than 50% in coordination of care (as documented) at patient's floor/unit and/or counseling patient: Coding Level of Care Code 52086 SUB INP/OBS CARE 3/50MIN Diagnoses Acute hypoxic respiratory failure J96.01 Atrial fibrillation with rapid ventricular response I48.91 End stage renal disease on dialysis N18.6; Z99.2 Thrombocytopenia D69.6 Autoimmune hepatitis treated with steroids K75.4 PAD (peripheral artery disease) I73.9 Weakness R53.1
[2024-06-01 06:18] LABS: Hematocrit (blood only) 29.6 % (42.0-52.0); Hemoglobin 8.5 g/dl (14.0-18.0); Mean Corpuscular Hemoglobin 28.7 pg (25.0-34.0); Mean Corpuscular Hgb Conc 28.7 g/dL (32.0-36.0); Mean Platelet Volume 12.1 fL (9.4-12.4); Platelet Count 69 K/uL (130-400); RDW Coefficient of Variation 30.8 % (11.5-14.5); RDW Standard Deviation 107.1 fL (36.4-46.3); Red Blood Count 2.96 M/uL (4.70-6.10)
[2024-06-01 06:43] LABS: BUN Creatinine Ratio 12.4 (10-20); Phosphorus 3.9 mg/dl (2.5-4.9); Potassium 3.7 mmol/L (3.5-5.1)
[2024-06-01 06:51] LABS: Nucleated RBC # (auto) 0.95 K/uL (0.00-0.12); Nucleated RBC % (auto) 13.6 %; White Blood Count 6.96 K/ul (4.8-10.8)
--- NOTE | 2024-06-01 10:17 | Nephrology Progress Note ---
Date of Service June 01, 2024 Assessment & Plan (1) End stage renal disease on dialysis: (2) Anemia: (3) Renal cell carcinoma: (4) Acute pulmonary edema: (5) Weakness: (6) Pulmonary edema: Plan 68-year-old gentleman with end-stage kidney disease with solitary kidney and hy pertensive nephrosclerosis, Started on hemodialysis after having had tunneled dialysis catheter on 04/16/2024. He was admitted with generalized weakness, pulmonary congestion and significant volume overload and over last few days had UF challenge and more than 20 kg weight loss. Had A-fib with RVR and had AV maggie ablation and pacemaker placement on 05/13/2024. Had second AV maggie ablation last week. Has been getting physical therapy but limited due to LE edema and heaviness, generalized weakness, [facility]. Improvement in bilateral lower extremity edema and shortness of breath with daily HD and extra UF. --Plan for dialysis daily for few days to improve volume status, aim for EDW around 138 kg or lower --Venofer today, Epogen 90580 units on 06/02/24 --Midodrine 10 mg prior to dialysis --continue renal vitamin and phosphate binder. --Right arm nephrology precaution --Dose medications for less than 10. Admission and Anticipated Discharge Date Admission Date: April 28, 2024 Subjective Tiny was seen and evaluated during hemodialysis this morning. He has been tolerating UF, BP stable. Reports improvement in SOB and O2 requirement, lower extremity edema. overall feels fatigued. Review of Systems Review of Systems: Detailed review of system was done and pertinent positives and negatives are mentioned above. Physical Exam Constitutional: WD/WN, vitals as above no acute distress Eyes: + anicteric sclerae Respiratory: Auscultation: + diminished lung sounds Cardiovascular: Rate/Rhythm: regular rate and regular rhythm Heart Sounds: normal S1 and normal S2 Extremities: + edema (2 to 3 + b/l LE edema), + vascular access device (Rt IJ TDC) and + AV fistula (Rt IJ TDC) Skin: + turgor decreased, + lesion, + skin atr ophy and + ecchymosis Neurologic: no focal motor deficits Psychiatric: Orientation: alert and oriented x 3 Results & Data Vital Signs (Past 12 Hours) Vital Signs Temp Pulse Pulse Pulse Resp BP BP 06/01/24 10:00 80 104/71 03/11/25 09:30 81 96/50 L 06/01/24 09:00 80 89/58 L 06/01/24 08:46 76 91/51 L 06/01/24 08:40 36.6 C 80 80 06/01/24 07:33 36.5 C 80 19 110/73 06/01/24 03:11 79 20 110/75 06/01/24 02:11 82 21 05/31/24 23:22 81 26 H 05/31/24 22:36 36.7 C 79 18 95/60 L Pulse Ox O2 Del Method O2 Flow Rate FiO2 06/01/24 10:00 06/01/24 09:30 06/01/24 09:00 06/01/24 08:46 06/01/24 08:40 06/01/24 07:33 99 Nasal Cannula 2.0 06/01/24 03:11 97 BiPAP 06/01/24 02:11 99 25 05/31/24 23:22 96 25 05/31/24 22:36 94 Nasal Cannula 3 PG Care Time/CCT Total # of Minutes Spent Total Time Spent with Patient: Total time spent is greater than 50% in coordination of care (as documented) at patient's floor/unit and/or counseling patient: Coding Level of Care Code 87192 SUB INP/OBS CARE 2/35MIN Diagnoses End stage renal disease on dialysis N18.6; Z99.2 Anemia D64.9 Renal cell carcinoma C64.9 Acute pulmonary edema J81.0 Weakness R53.1 Pulmonary edema J81.0 Chronicity: acute (6) Pulmonary edema Chronicity: acute Qualified Code(s): J81.0 - Acute pulmonary edema
[2024-06-01] MEDS: IRON SUCROSE 300 MG in SODIUM CHLORIDE 0.9% 250 ML IV ONE (11:58)
[2024-06-01] MEDS: EPOETIN ALFA 10,000 UNITS/ML VIAL IV ONE (11:59)
--- NOTE | 2024-06-01 14:35 | Hospitalist Progress Note ---
Date of Service June 01, 2024 Assessment & Plan (1) Anasarca: Plan: This is a 68yo HD dependent ESRD since March 2024, afib, renal cell ca (s/p R nephrectomy for renal cell ca, on opdivo), HLD, Hypothyroidism, SARAH as well as autoimmune hepatitis w/ long standing steroids ~1yr presented for b/l leg weakness on 05/18 and found to be positive for +rhinovirus/enterovirus and also tx for PNA while inpatient and has had complicated hospital course severe fluid overload, pulmonary edema on exam Patient currently undergoing daily dialysis may benefit also from albumin infusion to help with 3rd spacing (2) Acute hypoxic respiratory failure: Plan: Recurrent acute hypoxic respiratory failure overnight 05/29 - 05/30. - component of volume overload/pulmonary edema - probable pneumonia - CXR film is is overall unchanged to improved from previous with bibasilar R>L opacities, R>L pleural effusion, MRSA nares negative so unlikely MRSA pna -procal significantly elevated (has never been normal this admission, can be elevated in ESRD but would not expect this much) - check again in AM -continue cefepime since he's responding favorably so far - broaden to carbapenem if worsening, since he has had at least one course of cefepime this admission -has been on bactrim for PJP prophylaxis -Continue daily dialysis -Improving SOB and hypoxia, now on 2L of oxygen (3) Atrial fibrillation with rapid ventricular response: Plan: Presentation on admission: chronic, long-standing permanent a.fib followed by outside cardiology near [facility] Early in admission had had poor rate control despite meto succ BID + cardizem CD 120mg HS. Intolerant of increase because of hypotension. Was poor candidate for amio w/ abn LFTs and autoimmune hepatitis, prior cardioversion in past not successful AV node ablation with permanent pacemaker insertion on 05/13/[address] Mitchell eventually had recurrent A-fib repeat ablation with Dr Kyle on 05/25 continue apixaban heart rate has been in 80s, telemetry has been interpreted as A-fib last few days and paced today (4) End stage renal disease on dialysis: Plan: New HD dependent since March 24/2025. Hx solitary kidney status s/p R nephrectomy in the past for renal cell ca. He had 9 days of serial HD early in stay for severe volume overload. UF has been limited by hypotension, on midodrine. Several episodes of acute pulmonary edema this admission. Will have HD several days in a row, discussed with Nephrology his lowest weight 139 kg mid Apr, now up to 146 with significantly more anasarca/LE edema bumex 4 mg po bid added (5) Thrombocytopenia: Plan: IMPROVING finally. B12/folate wnl. Peripheral smear without suggestion TTP/HUS, no evidence for DIC. EBV PCR is positive s/p bone marrow biopsy 05/24 BM chromosome analysis/flow cytometry/pathology pending path still pending AM CBC (6) Autoimmune hepatitis treated with steroids: Plan: autoimmune hepatitis diagnosed July 2023 secondary to immunotherapy for renal cell ca and has been on chronic steroids since that time --> During Mar stay was on burst for this issues as well as concern immunotherapy contributing to his thrombocytopenia hepatitis - 2nd to Opdivo? 2nd to hepatic congestion from volume overload? combination of factors? EBV IgM returned POSITIVE EBV PCR also positive indicating acute or subacute infection (or re-activation) This could be contributing to hepatitis & low platelets CMV & parvovirus titers pending HepA, HepB, and HepC ab's were NEGATIVE in 06/2023 LFTs remain mildly high despite steroids , ammonia wnl Initially was on 70mg/day weaning q7d by 10mg increments - Down to prednisone 20mg daily through 06/01 then to be 10mg x 7d - Continues w/ PJP prophy until prednisone is <20mg/day; use SS tmp/sulfa 1 tab M/W/F at HS for prophylaxis - continue for now Obtained formal GI consult to ensure nothing else is causing the liver dysfunction - they agree that it is likely due to immunotherapy/autoimmune +/- right heart failure/passive congestion (7) PAD (peripheral artery disease): Plan: biphasic waveforms on LLE proximal vessels, monophasic waveforms on distal vessels -ideally should be on antiplatelet agents and statin but both contraindicated right now due to abnormal LFTs and low platelets Consult for Dr Rajan chandler, saw 05/25 (see note) --> pt has three vessel runoff/no acute intervention planned and can have outpt f/u. --> Notify sooner of any worsening/evidence for limb threatening CLI going forward He has blue toes syndrome - a few weeks ago had blue tip of 2nd toe that improve d, recently much worse with multiple blue toes - suspect atheroembolic shower caused by most recent EP procedure Suspect he also has significant small vessel vascular disease and poor tissue perfusion related to multiple acute and chronic problems (8) Weakness: Plan: IMPROVING especially his hip proximal muscles -- deconditioning is the main culprit more than likely, although cannot rule out a steroid myopathy given long standing use B1, B12 wnl, CPK wnl Suspect possible acute mono or subacute mono likely contributing --> see above Continues with therapy while inpatient w/ plans for INTENSIVE rehab post-dc which he should get at [facility] -lumbar spine issue cannot be ruled out but less likely (no paresthesias or radi cular pain of legs) Plan Stage 4 renal cell carcinoma - hx R nephrectomy, disease progression has been slow, on Opdivo followed by Dr. Grijalva at [facility]. L kidney cysts or masses on most recent imaging. 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 Could be contri buting to hepatitis thrombocytopenia and weakness. Supportive care Chronic conditions/resolved conditions: Elevated troponin - peak HS trop 103 early in the admission without evidence for HENRY and suspected likely myocardial demand ischemia in setting volume overload from above/infection/pna/etc Pneumonia - completed treatment early in stay for enterovirus/rhinovirus and possible superimposed bacterial pneumonia Aortic stenosis s/p TAVR - last echo with normal valve function (04/17) Hypothyroidism: TSH wnl and continues on usual Synthroid dosing Morbid Obesity: BMI 38- decreasing prednisone/HD for volume, eventual rehab and wt loss encouraged as able Pre-DM: A1c 6.1 in March and well controlled w/ SSI while inaptient with ongoing steroid use for autoimmune hepatitis/other as above BRBPR: 2nd to hemorrhoids vs fissures unable to visualize however is anal outlet. doubtful diverticulosis and given anusol suppositories starting 05/19 and has been stable since stopping DVT proph - eliquis 2.5mg BID Dispo continued inpatient stay and plan for [facility] when medically stable updated his in the room Admission and Anticipated Discharge Date Admission Date: April 28, 2024 Subjective patient seen and examined, by the bed side, says SOB is improved, but still very weak Review of Systems Review of Systems: All systems reviewed are negative, apart from the ones contained in the history. Physical Exam Physical Exam: The patient is awake, alert and oriented 3, well developed and well nourished, normocephalic and atraumatic, lying in bed and in no acute distress. HEENT--PERRL, EOMI, mucous membranes and oropharynx mildly dry Neck--supple. No JVD. No bruits. Thyroid normal, trachea midline, no adenopathy. Heart--normal S1 and S2. No murmurs, rubs or gallops. Lungs--clear bilaterally, no respiratory distress, no accessory muscle use. Abdomen--normal bowel sounds and soft. Extremities--no cyanosis or clubbing. pitting edema. Dermatologic--normal skin turgor, normal color, no abnormal lymph nodes, no rash. Neurologic--cranial nerves II through XII grossly intact. Rheumatologic--normal range of motion. Psychiatric--normal affect. Results & Data Results & Data Vital Signs (Past 12 Hours) Vital Signs Temp Pulse Pulse Pulse Resp BP BP 06/01/24 12:55 97.9 F 79 90/62 L 06/01/24 12:30 74 86/59 L 06/01/24 12:00 79 82/62 L 06/01/24 11:30 73 96/58 L 06/01/24 11:00 104 H 95/67 L 06/01/24 10:30 61 104/46 L 06/01/24 10:00 80 104/71 06/01/24 09:30 81 96/50 L 06/01/24 09:00 80 89/58 L 06/01/24 08:46 76 91/51 L 06/01/24 08:40 97.9 F 80 80 06/01/24 08:00 06/01/24 07:33 97.7 F 80 19 06/01/24 03:11 79 20 BP Pulse Ox O2 Del Method O2 Flow Rate 06/01/24 12:55 06/01/24 12:30 06/01/24 12:00 06/01/24 11:30 06/01/24 11:00 06/01/24 10:30 06/01/24 10:00 06/01/24 09:30 06/01/24 09:00 06/01/24 08:46 06/01/24 08:40 06/01/24 08:00 Nasal Cannula 2 06/01/24 07:33 110/73 99 Nasal Cannula 2.0 06/01/24 03:11 110/75 97 BiPAP PG Care Time/CCT Total # of Minutes Spent Total Time Spent with Patient: Total time spent is greater than 50% in coordination of care (as documented) at patient's floor/unit and/or counseling patient: Coding Level of Care Code 55839 SUB INP/OBS CARE 2/35MIN Diagnoses Anasarca R60.1 Acute hypoxic respiratory failure J96.01 Atrial fibrillation with rapid ventricular response I48.91 End stage renal disease on dialysis N18.6; Z99.2 Thrombocytopenia D69.6 Autoimmune hepatitis treated with steroids K75.4 PAD (peripheral artery disease) I73.9 Weakness R53.1 Time Spent (min) 35
--- NOTE | 2024-06-02 09:51 | Nephrology Progress Note ---
Date of Service June 02, 2024 Assessment & Plan (1) End stage renal disease on dialysis: (2) Anemia: (3) Renal cell carcinoma: (4) Acute pulmonary edema: (5) Weakness: (6) Pulmonary edema: Plan 68-year-old gentleman with end-stage kidney disease with solitary kidney and hy pertensive nephrosclerosis, Started on hemodialysis after having had tunneled dialysis catheter on 04/16/2024. He was admitted with generalized weakness, pulmonary congestion and significant volume overload and over last few days had UF challenge and more than 20 kg weight loss. Had A-fib with RVR and had AV maggie ablation and pacemaker placement on 05/13/2024. Had second AV maggie ablation last week. Has been getting physical therapy but limited due to LE edema and heaviness, generalized weakness, [facility] but now on hold due to worsening respiratory status and volume status since the weekend. Slight improvement in bilateral lower extremity edema and shortness of breath with daily HD and extra UF. --Plan for dialysis daily for few days to improve volume status, aim for EDW around 138 kg or lower --on Venofer and Epogen --Midodrine 10 mg prior to dialysis --continue renal vitamin and phosphate binder. --Right arm nephrology precaution --Dose medications for less than 10. --Discontinue Bumex as he has not been having any urine output last few days despite being on 4 mg twice a day --Prognosis remains poor with prolonged hospitalization and not much clinical improvement Admission and Anticipated Discharge Date Admission Date: April 28, 2024 Subjective Tiny was seen and evaluated this morning. Reports improvement in SOB and O2 requirement however continues to have significant lower extremity edema, feels fatigued. Appetite decent. Blood pressure remains low. Not making much urine despite being on Bumex 3 mg twice a day. Review of Systems Review of Systems: Detailed review of system was done and pertinent positives and negatives are mentioned above. Physical Exam Constitutional: WD/WN, vitals as above no acute distress Eyes: + anicteric sclerae Respiratory: Auscultation: + diminished lung sounds Cardiovascular: Rate/Rhythm: regular rate and regular rhythm Heart Sounds: normal S1 and normal S2 Extremities: + edema (2 to 3 + b/l LE edema), + vascular access device (Rt IJ TDC) and + AV fistula (Rt IJ TDC) Skin: + turgor decreased, + lesion, + skin atr ophy and + ecchymosis Neurologic: no focal motor deficits Psychiatric: Orientation: alert and oriented x 3 Results & Data Vital Signs (Past 12 Hours) Vital Signs Temp Pulse Pulse Resp BP Pulse Ox O2 Del Method 06/02/24 07:15 36.3 C L 76 18 94/60 L 98 Nasal Cannula 06/02/24 03:30 86 21 99 06/02/24 02:34 36.5 C 74 20 89/63 L 96 BiPAP 06/01/24 23:30 83 06/01/24 23:26 90 20 96 06/01/24 22:33 36.4 C L 79 18 100/68 94 Nasal Cannula 06/01/24 22:26 Nasal Cannula O2 Flow Rate FiO2 06/02/24 07:15 06/02/24 03:30 25 06/02/24 02:34 06/01/24 23:30 06/01/24 23:26 25 06/01/24 22:33 2.0 06/01/24 22:26 3 PG Care Time/CCT Total # of Minutes Spent Total Time Spent with Patient: Total time spent is greater than 50% in coordination of care (as documented) at patient's floor/unit and/or counseling patient: Coding Level of Care Code 63150 SUB INP/OBS CARE 3/50MIN Diagnoses End stage renal disease on dialysis N18.6; Z99.2 Anemia D64.9 Renal cell carcinoma C64.9 Acute pulmonary edema J81.0 Weakness R53.1 Pulmonary edema J81.0 Chronicity: acute (6) Pulmonary edema Chronicity: acute Qualified Code(s): J81.0 - Acute pulmonary edema
[2024-06-02 09:55] LABS: BUN Creatinine Ratio 13.1 (10-20); Calcium 9.1 mg/dl (8.6-10.3); Creatinine Clr Calc Pharmacy 40.6 ml/min; Potassium 4.2 mmol/L (3.5-5.1)
--- NOTE | 2024-06-02 11:28 | Hospitalist Progress Note ---
Date of Service June 02, 2024 Assessment & Plan (1) Anasarca: Plan: This is a 68yo HD dependent ESRD since March 2024, afib, renal cell ca (s/p R nephrectomy for renal cell ca, on opdivo), HLD, Hypothyroidism, SARAH as well as autoimmune hepatitis w/ long standing steroids ~1yr presented for b/l leg weakness on 05/18 and found to be positive for +rhinovirus/enterovirus and also tx for PNA while inpatient and has had complicated hospital course severe fluid overload, pulmonary edema on exam Patient currently undergoing daily dialysis Did give in bed scale may not be very accurate. Shows the patient is still above 319 pounds and was 312 or 313 couple of days ag o, despite daily ultrafiltration with removal of 2 L of fluid every day (2) Acute hypoxic respiratory failure: Plan: Recurrent acute hypoxic respiratory failure overnight 05/29 - 05/30. - component of volume overload/pulmonary edema - probable pneumonia - CXR film is is overall unchanged to improved from previous with bibasilar R>L opacities, R>L pleural effusion, MRSA nares negative so unlikely MRSA pna -procal significantly elevated (has never been normal this admission, can be elevated in ESRD but would not expect this much) - check again in AM -continue cefepime since he's responding favorably so far - broaden to carbapenem if worsening, since he has had at least one course of cefepime this admission -has been on bactrim for PJP prophylaxis -Continue daily dialysis -Improving SOB and hypoxia, now on 2L of oxygen (3) Atrial fibrillation with rapid ventricular response: Plan: Presentation on admission: chronic, long-standing permanent a.fib followed by outside cardiology near [place] Early in admission had had poor rate control despite meto succ BID + cardizem CD 120mg HS. Intolerant of increase because of hypotension. Was poor candidate for amio w/ abn LFTs and autoimmune hepatitis, prior cardioversion in past not successful AV node ablation with permanent pacemaker insertion on 05/13/[address] Mitchell eventually had recurrent A-fib repeat ablation with Dr Kyle on 05/25 continue apixaban heart rate has been in 80s, telemetry has been interpreted as A-fib last few days and paced today (4) End stage renal disease on dialysis: Plan: New HD dependent since March 24/2025. Hx solitary kidney status s/p R nephrectomy in the past for renal cell ca. He had 9 days of serial HD early in stay for severe volume overload. UF has been limited by hypotension, on midodrine. Several episodes of acute pulmonary edema this admission. Will have HD several days in a row, discussed with Nephrology his lowest weight 139 kg mid Apr, now up to 146 with significantly more anasarca/LE edema bumex 4 mg po bid added, Although not making any urine (5) Thrombocytopenia: Plan: IMPROVING finally. B12/folate wnl. Peripheral smear without suggestion TTP/HUS, no evidence for DIC. EBV PCR is positive s/p bone marrow biopsy 05/24 BM chromosome analysis/flow cytometry/pathology pending path still pending AM CBC (6) Autoimmune hepatitis treated with steroids: Plan: autoimmune hepatitis diagnosed July 2023 secondary to immunotherapy for renal cell ca and has been on chronic steroids since that time --> During [place] stay was on burst for this issues as well as concern immunotherapy contributing to his thrombocytopenia hepatitis - 2nd to Opdivo? 2nd to hepatic congestion from volume overload? combination of factors? EBV IgM returned POSITIVE EBV PCR also positive indicating acute or subacute infection (or re-activation) This could be contributing to hepatitis & low platelets CMV & parvovirus titers pending HepA, HepB, and HepC ab's were NEGATIVE in 06/2023 LFTs remain mildly high despite steroids , ammonia wnl Initially was on 70mg/day weaning q7d by 10mg increments - Down to prednisone 20mg daily through 06/01 then to be 10mg x 7d - Continues w/ PJP prophy until prednisone is <20mg/day; use SS tmp/sulfa 1 tab M/W/F at HS for prophylaxis - continue for now Obtained formal GI consult to ensure nothing else is causing the liver dysfunction - they agree that it is likely due to immunotherapy/autoimmune +/- right heart failure/passive congestion (7) PAD (peripheral artery disease): Plan: biphasic waveforms on LLE proximal vessels, monophasic waveforms on distal vessels -ideally should be on antiplatelet agents and statin but both contraindicated right now due to abnormal LFTs and low platelets Consult for Dr Rajan chandler, saw 05/25 (see note) --> pt has three vessel runoff/no acute intervention planned and can have outpt f/u. --> Notify sooner of any worsening/evidence for limb threatening CLI going forward He has blue toes syndrome - a few weeks ago had blue tip of 2nd toe that improved, recently much worse with multiple blue toes - suspect atheroembolic shower caused by most recent EP procedure Suspect he also has significant small vessel vascular disease and poor tissue perfusion related to multiple acute and chronic problems (8) Weakness: Plan: IMPROVING especially his hip proximal muscles -- deconditioning is the main culprit more than likely, although cannot rule out a steroid myopathy given long standing use B1, B12 wnl, CPK wnl Suspect possible acute mono or subacute mono likely contributing --> see above Continues with therapy while inpatient w/ plans for INTENSIVE rehab post-dc which he should get at [facility] -lumbar spine issue cannot be ruled out but less likely (no paresthesias or radicular pain of legs) Plan Stage 4 renal cell carcinoma - hx R nephrectomy, disease progression has been slow, on Opdivo followed by Dr. Grijalva at [facility]. L kidney cysts or masses on most recent imaging. 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 Could be contributing to hepatitis thrombocytopenia and weakness. Supportive care Chronic conditions/resolved conditions: Elevated troponin - peak HS trop 103 early in the admission without evidence for HENRY and suspected likely myocardial demand ischemia in setting volume overload from above/infection/pna/etc Pneumonia - completed treatment early in stay for enterovirus/rhinovirus and possible superimposed bacterial pneumonia Aortic stenosis s/p TAVR - last echo with normal valve function (04/17) Hypothyroidism: TSH wnl and continues on usual Synthroid dosing Morbid Obesity: BMI 38- decreasing prednisone/HD for volume, eventual rehab and wt loss encouraged as able Pre-DM: A1c 6.1 in March and well controlled w/ SSI while inaptient with ongoing steroid use for autoimmune hepatitis/other as above BRBPR: 2nd to hemorrhoids vs fissures unable to visualize however is anal outlet. doubtful diverticulosis and given anusol suppositories starting 05/19 and has been stable since stopping DVT proph - eliquis 2.5mg BID Dispo continued inpatient stay and plan for [facility] when medically stable updated his in the room Admission and Anticipated Discharge Date Admission Date: April 28, 2024 Subjective Patient seen and examined by the bedside, the said the swelling is getting better but patient still feels very weak Review of Systems Review of Systems: All systems reviewed are negative, apart from the ones contained in the history. Physical Exam Physical Exam: The patient is awake, alert and oriented 3, well developed and well nourished, normocephalic and atraumatic, lying in bed and in no acute distress. HEENT--PERRL, EOMI, mucous membranes and oropharynx mildly dry Neck--supple. No JVD. No bruits. Thyroid normal, trachea midline, no adenopathy. Heart--normal S1 and S2. No murmurs, rubs or gallops. Lungs--clear bilaterally, no respiratory distress, no accessory muscle use. Abdomen--normal bowel sounds and soft. Extremities--no cyanosis or clubbing. pitting edema. Dermatologic--normal skin turgor, normal color, no abnormal lymph nodes, no rash. Neurologic--cranial nerves II through XII grossly intact. Rheumatologic--normal range of motion. Psychiatric--normal affect. Results & Data Results & Data Vital Signs (Past 12 Hours) Vital Signs Temp Pulse Pulse Resp BP Pulse Ox O2 Del Method 06/02/24 11:18 97.7 F 81 18 91/66 L 98 Nasal Cannula 06/02/24 07:15 97.3 F L 76 18 94/60 L 98 Nasal Cannula 06/02/24 03:30 86 21 99 06/02/24 02:34 97.7 F 74 20 89/63 L 96 BiPAP 06/01/24 23:30 83 06/01/24 23:26 90 20 96 O2 Flow Rate FiO2 06/02/24 11:18 2 06/02/24 07:15 06/02/24 03:30 25 06/02/24 02:34 06/01/24 23:30 06/01/24 23:26 25 PG Care Time/CCT Total # of Minutes Spent Total Time Spent with Patient: Total time spent is greater than 50% in coordination of care (as documented) at patient's floor/unit and/or counseling patient: Coding Level of Care Code 54198 SUB INP/OBS CARE 2/35MIN Diagnoses Anasarca R60.1 Acute hypoxic respiratory failure J96.01 Atrial fibrillation with rapid ventricular response I48.91 End stage renal disease on dialysis N18.6; Z99.2 Thrombocytopenia D69.6 Autoimmune hepatitis treated with steroids K75.4 PAD (peripheral artery disease) I73.9 Weakness R53.1 Time Spent (min) 35
[2024-06-02] MEDS: EPOETIN ALFA 10,000 UNITS/ML VIAL IV ONE (16:43)
[2024-06-03 06:35] LABS: BUN Creatinine Ratio 11.3 (10-20); Calcium 8.7 mg/dl (8.6-10.3); Creatinine Clr Calc Pharmacy 44.9 ml/min; Potassium 3.6 mmol/L (3.5-5.1)
[2024-06-03] MEDS ORDERED: IRON SUCROSE 300 MG in SODIUM CHLORIDE 0.9% 250 ML IV ONE (10:00)
--- NOTE | 2024-06-03 10:10 | Nephrology Progress Note ---
Date of Service June 03, 2024 Assessment & Plan (1) End stage renal disease on dialysis: (2) Anemia: (3) Renal cell carcinoma: (4) Acute pulmonary edema: (5) Weakness: (6) Pulmonary edema: Plan 68-year-old gentleman with end-stage kidney disease with solitary kidney and hy pertensive nephrosclerosis, Started on hemodialysis after having had tunneled dialysis catheter on 04/16/2024. He was admitted with generalized weakness, pulmonary congestion and significant volume overload and over last few days had UF challenge and more than 20 kg weight loss. Had A-fib with RVR and had AV maggie ablation and pacemaker placement on 05/13/2024. Had second AV maggie ablation last week. Has been getting physical therapy but not able to do much due to profound weakness and LE edema and heaviness. Slight improvement in bilateral lower extremity edema and shortness of breath with daily HD and extra UF. --Plan to continue dialysis daily through the weekend to improve volume status, aim for EDW around 138 kg or lower --on Venofer and Epogen --Midodrine 10 mg prior to dialysis --continue renal vitamin and phosphate binder. --Right arm nephrology precaution --Dose medications for less than 10. --Discontinue Bumex as he has not been having any urine output last few days d espite being on 4 mg twice a day --Prognosis remains poor with prolonged hospitalization and not much clinical improvement. Had long discussion with Mr. Guadalupe and explained that we are really not making any progress even with back to back dialysis. He understands overall prognosis is poor and leaning towards ongoing discuss about goals of care if no significant improvement by weekend. Admission and Anticipated Discharge Date Admission Date: April 28, 2024 Subjective Tiny was seen and evaluated this morning. Reports slight improvement in SOB and O2 requirement however no meaningful improvement and continues to have significant lower extremity edema, feels fatigued and exhausted with minimal activity, even eating makes him exhausted. Blood pressure remains low. Not making much urine despite being on Bumex 4 mg twice a day. Review of Systems Review of Systems: Detailed review of system was done and pertinent positives and negatives are mentioned above. Physical Exam Constitutional: WD/WN, vitals as above + ill appearing; no acute distress Respiratory: Auscultation: + diminished lung sounds Cardiovascular: Rate/Rhythm: regular rate and regular rhythm Heart Sounds: normal S1 and normal S2 Extremities: + edema (2 to 3 + b/l LE edema), + vascular access device (Rt IJ TDC) and + AV fistula (Rt IJ TDC) Skin: + turgor decreased, + lesion, + skin atr ophy and + ecchymosis left foot ischemic toes Neurologic: no focal motor deficits Psychiatric: Orientation: alert and oriented x 3 Results & Data Vital Signs (Past 12 Hours) Vital Signs Temp Pulse Pulse Resp BP Pulse Ox O2 Del Method 06/03/24 08:02 80 06/03/24 07:51 Nasal Cannula 06/03/24 07:15 37.3 C 80 20 102/70 100 Nasal Cannula 06/03/24 03:45 80 19 99 06/03/24 02:48 36.3 C L 83 18 96/64 L 97 BiPAP 06/02/24 23:36 90 20 95 06/02/24 22:17 36.6 C 84 18 95/63 L 97 Nasal Cannula O2 Flow Rate FiO2 06/03/24 08:02 06/03/24 07:51 2 06/03/24 07:15 2 06/03/24 03:45 25 06/03/24 02:48 06/02/24 23:36 25 06/02/24 22:17 2.0 PG Care Time/CCT Total # of Minutes Spent Total Time Spent with Patient: Total time spent is greater than 50% in coordination of care (as documented) at patient's floor/unit and/or counseling patient: Coding Level of Care Code 37689 SUB INP/OBS CARE 3/50MIN Diagnoses End stage renal disease on dialysis N18.6; Z99.2 Anemia D64.9 Renal cell carcinoma C64.9 Acute pulmonary edema J81.0 Weakness R53.1 Pulmonary edema J81.0 Chronicity: acute (6) Pulmonary edema Chronicity: acute Qualified Code(s): J81.0 - Acute pulmonary edema
[2024-06-03] MEDS: IRON SUCROSE 300 MG in SODIUM CHLORIDE 0.9% 250 ML IV ONE (10:25)
--- NOTE | 2024-06-03 11:16 | Hospitalist Progress Note ---
Date of Service June 03, 2024 Assessment & Plan (1) Anasarca: Plan: This is a 68yo HD dependent ESRD since March 2024, afib, renal cell ca (s/p R nephrectomy for renal cell ca, on opdivo), HLD, Hypothyroidism, SARAH as well as autoimmune hepatitis w/ long standing steroids ~1yr presented for b/l leg weakness on 05/18 and found to be positive for +rhinovirus/enterovirus and also tx for PNA while inpatient and has had complicated hospital course severe fluid overload, pulmonary edema on exam Etiology could be multifactorial, ESRD, CHFwpEF Patient currently undergoing daily dialysis without much improvement May consult palliative Prognosis is guarded (2) Acute hypoxic respiratory failure: Plan: Recurrent acute hypoxic respiratory failure overnight 05/29 - 05/30. - component of volume overload/pulmonary edema - probable pneumonia - CXR film is is overall unchanged to improved from previous with bibasilar R>L opacities, R>L pleural effusion, MRSA nares negative so unlikely MRSA pna -procal significantly elevated (has never been normal this admission, can be elevated in ESRD but would not expect this much) -continue cefepime -has been on bactrim for PJP prophylaxis -Continue daily dialysis -Improving SOB and hypoxia, now on 2L of oxygen (3) Atrial fibrillation with rapid ventricular response: Plan: Presentation on admission: chronic, long-standing permanent a.fib followed by outside cardiology near [place] Early in admission had had poor rate control despite meto succ BID + cardizem CD 120mg HS. Intolerant of increase because of hypotension. Was poor candidate for amio w/ abn LFTs and autoimmune hepatitis, prior cardioversion in past not successful AV node ablation with permanent pacemaker insertion on 05/13/[address] Mitchell eventually had recurrent A-fib repeat ablation with Dr Kyle on 05/25 continue apixaban heart rate has been in 80s, telemetry has been interpreted as A-fib last few days and paced today (4) End stage renal disease on dialysis: Plan: New HD dependent since March 24/2025. Hx solitary kidney status s/p R nephrectomy in the past for renal cell ca. He had 9 days of serial HD early in stay for severe volume overload. UF has been limited by hypotension, on midodrine. Several episodes of acute pulmonary edema this admission. Will have HD several days in a row, discussed with Nephrology his lowest weight 139 kg mid Apr, now up to 146 with significantly more anasarca/LE edema bumex 4 mg po discontinued, patient not making any urine (5) Thrombocytopenia: Plan: IMPROVING finally. B12/folate wnl. Peripheral smear without suggestion TTP/HUS, no evidence for DIC. EBV PCR is positive s/p bone marrow biopsy 05/24, pathology pending BM chromosome analysis/flow cytometry/pathology pending path still pending AM CBC (6) Autoimmune hepatitis treated with steroids: Plan: autoimmune hepatitis diagnosed July 2023 secondary to immunotherapy for renal cell ca and has been on chronic steroids since that time --> During [place] stay was on burst for this issues as well as concern immunotherapy contributing to his thrombocytopenia hepatitis - 2nd to Opdivo? 2nd to hepatic congestion from volume overload? combination of factors? EBV IgM returned POSITIVE EBV PCR also positive indicating acute or subacute infection (or re-activation) This could be contributing to hepatitis & low platelets CMV & parvovirus titers pending HepA, HepB, and HepC ab's were NEGATIVE in 06/2023 LFTs remain mildly high despite steroids , ammonia wnl Initially was on 70mg/day weaning q7d by 10mg increments - Down to prednisone 20mg daily through 06/01 then to be 10mg x 7d - Continues w/ PJP prophy until prednisone is <20mg/day; use SS tmp/sulfa 1 tab M/W/F at HS for prophylaxis - continue for now Obtained formal GI consult to ensure nothing else is causing the liver dysfunction - they agree that it is likely due to immunotherapy/autoimmune +/- right heart failure/passive congestion (7) PAD (peripheral artery disease): Plan: biphasic waveforms on LLE proximal vessels, monophasic waveforms on distal vessels -ideally should be on antiplatelet agents and statin but both contraindicated right now due to abnormal LFTs and low platelets Consult for Dr Rajan chandler, saw 05/25 (see note) --> pt has three vessel runoff/no acute intervention planned and can have outpt f/u. --> Notify sooner of any worsening/evidence for limb threatening CLI going forward He has blue toes syndrome - a few weeks ago had blue tip of 2nd toe that improved, recently much worse with multiple blue toes - suspect atheroembolic shower caused by most recent EP procedure Suspect he also has significant small vessel vascular disease and poor tissue perfusion related to multiple acute and chronic problems (8) Weakness: Plan: IMPROVING especially his hip proximal muscles -- deconditioning is the main culprit more than likely, although cannot rule out a steroid myopathy given long standing use B1, B12 wnl, CPK wnl Suspect possible acute mono or subacute mono likely contributing --> see above Continues with therapy while inpatient w/ plans for INTENSIVE rehab post-dc which he should get at [facility] -lumbar spine issue cannot be ruled out but less likely (no paresthesias or radicular pain of legs) Plan Stage 4 renal cell carcinoma - hx R nephrectomy, disease progression has been slow, on Opdivo followed by Dr. Grijalva at [facility]. L kidney cysts or masses on most recent imaging. 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 Could be contributing to hepatitis thrombocytopenia and weakness. Supportive care Chronic conditions/resolved conditions: Elevated troponin - peak HS trop 103 early in the admission without evidence for HENRY and suspected likely myocardial demand ischemia in setting volume overload from above/infection/pna/etc Pneumonia - completed treatment early in stay for enterovirus/rhinovirus and possible superimposed bacterial pneumonia Aortic stenosis s/p TAVR - last echo with normal valve function (04/17) Hypothyroidism: TSH wnl and continues on usual Synthroid dosing Morbid Obesity: BMI 38- decreasing prednisone/HD for volume, eventual rehab and wt loss encouraged as able Pre-DM: A1c 6.1 in March and well controlled w/ SSI while inaptient with ongoing steroid use for autoimmune hepatitis/other as above BRBPR: 2nd to hemorrhoids vs fissures unable to visualize however is anal outlet. doubtful diverticulosis and given anusol suppositories starting 05/19 and has been stable since stopping DVT proph - eliquis 2.5mg BID Dispo continued inpatient stay and plan for [facility] when medically stable, prognosis is guarded. consult palliative updated his in the room Admission and Anticipated Discharge Date Admission Date: April 28, 2024 Supervising Physician Co-Signing Physician Notes The patient was not seen by me. The chart was reviewed. Case discussed with DENNIS Schulte. Agree with assessment and plan Subjective patient seen na d examined, at the bedside, still feels very weak, but says there;s some improvement in the leg swelling Review of Systems Review of Systems: All systems reviewed are negative, apart from the ones contained in the history. Physical Exam Physical Exam: The patient is awake, alert and oriented 3, well developed and well nourished, normocephalic and atraumatic, lying in bed and in no acute distress. HEENT--PERRL, EOMI, mucous membranes and oropharynx mildly dry Neck--supple. No JVD. No bruits. Thyroid normal, trachea midline, no adenopathy. Heart--normal S1 and S2. No murmurs, rubs or gallops. Lungs--clear bilaterally, no respiratory distress, no accessory muscle use. Abdomen--normal bowel sounds and soft. Extremities--no cyanosis or clubbing. pitting edema. Dermatologic--normal skin turgor, normal color, no abnormal lymph nodes, no rash. Neurologic--cranial nerves II through XII grossly intact. Rheumatologic--normal range of motion. Psychiatric--normal affect. Results & Data Results & Data Vital Signs (Past 12 Hours) Vital Signs Temp Pulse Pulse Resp BP Pulse Ox O2 Del Method 06/03/24 08:02 80 06/03/24 07:51 Nasal Cannula 06/03/24 07:15 99.1 F 80 20 102/70 100 Nasal Cannula 06/03/24 03:45 80 19 99 06/03/24 02:48 97.3 F L 83 18 96/64 L 97 BiPAP 06/02/24 23:36 90 20 95 O2 Flow Rate FiO2 06/03/24 08:02 06/03/24 07:51 2 06/03/24 07:15 2 06/03/24 03:45 25 06/03/24 02:48 06/02/24 23:36 25 PG Care Time/CCT Total # of Minutes Spent Total Time Spent with Patient: Total time spent is greater than 50% in coordination of care (as documented) at patient's floor/unit and/or counseling patient: Coding Level of Care Code 67455 SUB INP/OBS CARE 2/35MIN Diagnoses Anasarca R60.1 Acute hypoxic respiratory failure J96.01 Atrial fibrillation with rapid ventricular response I48.91 End stage renal disease on dialysis N18.6; Z99.2 Thrombocytopenia D69.6 Autoimmune hepatitis treated with steroids K75.4 PAD (peripheral artery disease) I73.9 Weakness R53.1 Time Spent (min) 35
[2024-06-03] MEDS: BUMETANIDE 4 MG in SYRINGE 0 ML IV ONE (11:22)
--- NOTE | 2024-06-03 11:53 | XRay Report ---
XR chest 1V portable CLINICAL HISTORY: follow up pulm edema COMPARISON STUDY: 05/29/2024 FINDINGS: Single view chest demonstrates some resolution of airspace opacities in the right upper lob e. Airspace opacity in the right lung base is unchanged. New air space opacity has developed in the l eft lung base. Cardiomegaly, pulmonary vascular congestion, and aortic arch ectasia are once again no jenny. Bilateral pleural effusions are present right greater than left. Double-lumen dialysis catheter in the mid superior vena cava. Unipolar left pacemaker electrode uncha nged. IMPRESSION: Right upper lobe airspace opacity less pronounced. New left basilar airspace opacity has developed. Cardiomegaly, pulmonary vascular congestion, small bilateral effusion, and right basilar infiltrate u nchanged. ACT 112: Negative or not required by law. Electronically signed by: Sridevi Saldana M.D. 06/03/2024 11:51 AM
--- NOTE | 2024-06-03 12:18 | Palliative Care Consultation ---
Date of Consultation June 04, 2024 Assessment & Plan (1) Palliative care by specialist: Palliative care will continue to follow for ongoing EOL pt care and family support. (2) Quality of life palliative care encounter: met wit pt and his at bedside. ACP discussion held from 09:30 - 10:20 Pt expressed concern for poor quality of life given lengthy admission, HD dependence, and being completely dependent on others for all ADLs. He shared that he has lived an active and independent life and is now frustrated that even any slight exertion "wipes me out". He and his express concern that despite his protracted admission and aggressive medical therapy he only feels sicker and more fatigued. (3) Counseling regarding advanced directives and goals of care: Discussed pt's chronic and debilitating health conditions, lengthy hospitalization, dependence on daily HD, and deconditioning that will make recovery an difficult uphill handy. He shared that he is acceptant of lifetime IHD dependence but not if he will not recover strength or functional independence. He shared frustration that since March he has been agreeable and had multiple procedures to only have his health continue to decompensate. He stated that he is ready to "give up on it all and just step out on a limb". His is supportive of his wishes and both shared that they wish to "give HD until Friday to see if it helps at all". They shared that they intend to discuss this with their children this evening and would like to revisit goals of care/hospice discussion on Friday. Chase plans to continue current level of care through . Discussed code status and helped them understand that CPR is only done after a person has and involves uncomfortable and invasive procedures that, if successful. have high risk of multiple complications including but not limited to rib fractures, pneumo/hemothorax, MARILEE, ventilator dependence, anoxic brain injury, and intermodal dispatcher/permanent cognitive and functional deficits. CPR survival: Only about 10% of patients who have [id number] sudden cardiac arrest survive to hospital discharge, with many survivors having neurologic impairment. This rate is even lower among patients with serious coexisting conditions, ie chance of survival to hospital discharge for in- hospital CPR in older people is low to moderate (15%) and decreases with age, comorbidities, performance status and frailty: for pts > 70 yo, more than half of the patients who initially survived resuscitation in the hospital before hospital discharge. The pooled survival to discharge after in-hospital CPR was 18% for patients between 70 and 79 years old, 15% for patients between 80 and 89 years old and 11% for patients of 90 years and older. (Jewel CANTOR, Bernardino LJ, Ryan F, et al. Trends in short- and long-term survival among [id number] cardiac arrest patients alive at hospital arrival. Circulation 2014;130:1883- 1890. AND Blessing Storm, Raquel T, Sandip R, et al. Performance of clinical risk scores to predict mortality and neurological outcome in cardiac arrest patients. Resuscitation 2019;136:21-29.) Chase and Ronel both expressed desire to change code status to DNR/DNI. Orders placed and attending updated. Plan DNR/DNI Continue current plan of care through weekend. Pt states that if no improvement after "few more" HD sessions he would like to transition to comfort directed care. History of Present Illness Reason for Consultation: goals of care . Requesting Physician: Odalis Bobo MD Attending Physician: Odalis Bobo MD History of Present Illness Mr Guadalupe is a 68 y male with PMHx including ESRD on dialysis (M/W/F), CHF, s/p TAVR, A-fib, RCC, HTN, hypercholesterolemia, hypothyroidism, and SARAH presenting to ED for BLE weakness starting on the day of arrival. Patient has renal cell carcinoma wih R nephrectomy and subsequent metastasis to L kidney and has been on Opdivo therapy. This was complicated by immune hepatitis requiring hospitalization and steroid therapy. Mr. Guadalupe was recently admitted to [facility] 04/13 - 04/19 for AHRF / CHF exacerbation w/ small bilateral pleural effusions and elevation of Creatinine to 4.58 (baseline Cr 3.4) and was discharged on IHD. Allergies Allergy/AdvReac Type Severity Reaction Status Date / Time No Known Allergies Allergy Verified 04/28/24 19:55 Home Medications Medication Instructions Recorded Confirmed Type multivitamin 1 tab PO DAILY 11/11/18 04/28/24 History cholecalciferol (vitamin D3) 50 2,000 unit PO DAILY #30 tabs 10/15/22 04/28/24 History mcg (2,000 unit) tablet amoxicillin 500 mg capsule 2,000 mg PO DIRECTED PRN 1 HR 07/07/23 04/28/24 History PRIOR TO DENTAL APPT. betamethasone, augmented 0.05 % 1 applic topical BID PRN Skin 07/07/23 04/28/24 History topical cream Irritation levothyroxine 200 mcg tablet 200 mcg PO QAM 08/21/23 04/28/24 History ferrous sulfate 325 mg (65 mg 325 mg PO DAILY 11/05/23 04/28/24 History iron) tablet (iron) pantoprazole 40 mg tablet,delayed 40 mg PO QAM 11/17/23 04/28/24 History release apixaban 2.5 mg tablet (Eliquis) 2.5 mg PO BID #60 tabs 04/19/24 04/28/24 Rx diltiazem HCl 30 mg tablet 30 mg PO Q6H #120 tabs 04/19/24 04/28/24 Rx metoprolol succinate 25 mg 75 mg (3 x 25 mg) PO QAM #90 tabs 04/19/24 04/28/24 Rx tablet,extended release 24 hr metoprolol succinate 50 mg 100 mg (2 x 50 mg) PO QPM #60 tabs 04/19/24 04/28/24 Rx tablet,extended release 24 hr prednisone 10 mg tablet See Taper PO DIRECTED #196 tabs 04/19/24 04/28/24 Rx vitamin B complex and vitamin C 1 cap PO QAM #30 caps 04/19/24 04/28/24 Rx no.20-folic acid 1 mg capsule (Renal Caps) midodrine 10 mg tablet 10 mg PO TID #30 tabs 04/27/24 04/28/24 Rx bumetanide 2 mg tablet 2 mg PO DAILY 04/28/24 04/28/24 History Patient History Medical History Atrial fibrillation SARAH (obstructive sleep apnea) Hypercholesterolemia Hypertension Hypothyroidism Acute GI bleeding 2nd duodenal ulcer - 2023 Coagulopathy Heart failure with preserved ejection fraction Renal cell carcinoma stage 4 CKD (chronic kidney disease) stage 4, GFR 15-29 ml/min Surgical History S/p nephrectomy right Family History Mother Cancer colon ca; age 76 Father CHF (congestive heart failure) age 78 Social History Smoking Status: Never smoker Do You Dip or Chew Tobacco: No; Hx Alcohol Use: No Hx Substance Use: No Preferred Language: Jordanian Communication Ability: Effective Datapower Developer Required: No Beliefs That Will Affect Care: None marital status: Current Living Situation: Spouse Current Living Situation Comment: live in [facility] near [facility] current occupational status: retired 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 HEENT--PERRL, EOMI, mucous membranes and oropharynx mildly dry Neck--supple. No JVD. No bruits. Thyroid normal, trachea midline, no adenopathy. Heart--normal S1 and S2. No murmurs, rubs or gallops. Lungs--clear bilaterally, no respiratory distress, no accessory muscle use. Abdomen--normal bowel sounds and soft. Extremities--no cyanosis or clubbing. pitting edema. Dermatologic--normal skin turgor, normal color, no abnormal lymph nodes, no rash. Neurologic--no focal deficits Psychiatric--normal affect. Results & Data Vital Signs (Past 12 Hours) Vital Signs Temp Pulse Pulse Pulse Resp BP Pulse Ox 06/03/24 11:41 36.6 C 78 22 93/63 L 99 06/03/24 08:02 80 06/03/24 07:51 06/03/24 07:15 37.3 C 80 20 102/70 100 06/03/24 03:45 80 19 99 06/03/24 02:48 36.3 C L 83 18 96/64 L 97 O2 Del Method O2 Flow Rate FiO2 06/03/24 11:41 Nasal Cannula 06/03/24 08:02 06/03/24 07:51 Nasal Cannula 2 06/03/24 07:15 Nasal Cannula 2 06/03/24 03:45 25 06/03/24 02:48 BiPAP Laboratory Results Abnormal lab results 06/02/24 06/02/24 06/03/24 Range/Units 17:21 20:23 05:32 BUN 26 H (6-23) mg/dl Creatinine 2.31 H (0.6-1.4) mg/dl Glucose 132 H (70-99(Fasting)) mg/dl POC Glucose 117 H 137 H (70-99) mg/dl 06/03/24 06/03/24 Range/Units 07:18 11:43 BUN (6-23) mg/dl Creatinine (0.6-1.4) mg/dl Glucose (70-99(Fasting)) mg/dl POC Glucose 153 H 170 H (70-99) mg/dl Diagnostic Findings Head CT 04/28/24 16:47 EXAMINATION: Head CT without CLINICAL HISTORY: Weakness PRIORS: None TECHNIQUE: Contiguous axial images were obtained through the head without the use of intravenous contrast. Sagittal and coronal reformations are supplied. FINDINGS: Motion artifact degrades image quality. Moderate parenchymal volume loss noted. Quiñones-white differentiation is preserved. No edema or midline shift. No intra-axial or extra-axial hemorrhage. Ventricles are normal in size and configuration. Brainstem and cerebellum have a normal appearance. Calvarium unremarkable. Paranasal sinuses and mastoid air cells are well-pneumatized. Globes are intact. No retrobulbar abnormality. IMPRESSION: Moderate parenchymal volume loss with no CT evidence of an acute intracranial abnormality. Electronically signed by Indy 04-28-2024 6:25 PM Liver Ultrasound 05/10/24 00:00 EXAM: US liver CLINICAL HISTORY: hepatitis TECHNIQUE: Limited ultrasound of the liver and gallbladder was performed in greyscale and Doppler. Multiple images were obtained in transverse and longitudinal planes. COMPARISON: No prior studies are available for comparison. FINDINGS: Liver: Liver size: measures 17.9 cm. The liver appears enlarged in size with heterogeneous echotexture and slightly irregular borders. No evidence of focal lesions, cysts, or masses. Hepatic vasculature appears normal. Gallbladder: Gallbladder size: Gallbladder is visualized and not well distended at the time of scan with normal shape. A slight increase in gall bladder wall thickness measures 0.36 cm(which may be non-specific due to an undistended gall bladder) No gallstones or pericholecystic fluid were noted. No evidence of gallbladder wall edema or signs of acute cholecystitis. Biliary Tree: Common bile duct diameter: 0.36 cm. The common bile duct is within normal limits in caliber and not dilated. No evidence of choledocholithiasis or biliary obstruction. IMPRESSION: 1. Moderate hepatomegaly with heterogeneous parenchymal echo pattern and slightly irregular borders(parenchymal liver disease) for correlation with LFT. 2. Slight increase in gall bladder wall thickness (whoever better assesses with distended gall bladder will be better). Electronically signed by Scott Venegas 05-10-2024 02:18 AM Duplex Scan Lower Extremity Artery 05/22/24 07:00 EXAM: US arterial duplex LE LT CLINICAL HISTORY: Cold L foot, decreased pulses/cap refill TECHNIQUE: Ultrasound examination of the left lower extremity arteries was performed in real time and duplex. One or more of the following were performed- spectral analysis, resistive index, waveform analysis, and pulsed Doppler. COMPARISON: None. FINDINGS: Vessel Flow Pattern Left Peak Velocity Left (cm/sec) Common Femoral Artery (GROUP PRESIDENT) Tri 42 Deep Femoral Artery (DPA) MONO-BI 35 Superficial Femoral Artery (SFA) TRI 40-48 Popliteal Artery (POP A) Bi-marichuy 18 Posterior Tibial Artery (BIOFUELS OPERATIONS MANAGER), proximal Bi-mono 21 PERONEAL ARTERY Huntington 18 Dorsalis Pedis Artery (DPA) Huntington 11.5 Multiple discrete calcific plaques were noted in the arteries. Damped monophasic waveform in the distal arteries. IMPRESSION: Multiple discrete calcific plaques were noted in the arteries and damped monophasic waveform in the distal arteries. Electronically signed by Scott Venegas 05-22-2024 08:13 AM Bone Marrow Biopsy w/ CT 05/24/24 08:00 CT guided bone marrow biopsy INDICATION: Thrombocytopenia PROCEDURE: Procedure and risks were explained. Informed consent was obtained. A final timeout was completed. The patient was placed prone in a decubitus position and the CT exam table. The right gluteal region was prepped and draped in sterile fashion. 1% lidocaine was utilized for skin anesthesia. Utilizing CT guidance, an 11-gauge bone biopsy needle was advanced into the right iliac bone. Multiple aspirates and one bone core was obtained and given to the lab. The needle was removed and Band-Aid applied. The patient tolerated the procedure well. Vital signs will be monitored postprocedure. IMPRESSION: Bone marrow biopsy as above. Performed, dictated, and signed by Venancio Mendes PA-C; to be co-signed by Dr. Alex Garcia. Electronically signed by: Alex Garcia M.D. 05/24/2024 2:28 PM Chest X-Ray 06/03/24 11:05 XR chest 1V portable CLINICAL HISTORY: follow up pulm edema COMPARISON STUDY: 05/29/2024 FINDINGS: Single view chest demonstrates some resolution of airspace opacities in the right upper lobe. Airspace opacity in the right lung base is unchanged. New air space opacity has developed in the left lung base. Cardiomegaly, pulmonary vascular congestion, and aortic arch ectasia are once again noted. Bilateral pleural effusions are present right greater than left. Double-lumen dialysis catheter in the mid superior vena cava. Unipolar left pacemaker electrode unchanged. IMPRESSION: Right upper lobe airspace opacity less pronounced. New left basilar airspace opacity has developed. Cardiomegaly, pulmonary vascular congestion, small bilateral effusion, and right basilar infiltrate unchanged. ACT 112: Negative or not required by law. Electronically signed by: Sridevi Saldana M.D. 06/03/2024 11:51 AM Medications Administered Current Inpatient Medications Acetaminophen (Acetaminophen 325 Mg Tab) 650 mg PO Q4H PRN PRN Reason: pain/fever Stop: 07/02/24 21:07 Last Admin: 05/16/24 13:50 Dose: 650 mg Apixaban (Apixaban 2.5 Mg Tab) 2.5 mg PO BID GURU Stop: 07/02/24 23:55 Last Admin: 06/03/24 08:29 Dose: 2.5 mg Bisacodyl (Bisacodyl 5 Mg Tabec) 5 mg PO DAILY PRN PRN Reason: Constipation Stop: 07/07/24 18:16 Last Admin: 06/02/24 17:28 Dose: 5 mg Dextrose (Dextrose 50% 50 Ml Syringe) 25 - 50 ml IV UD PRN; Protocol PRN Reason: Hypoglycemia Protocol Stop: 06/30/24 08:11 Glucagon (Glucagon For Inj 1 Mg Vial) 1 mg SQ UD PRN; Protocol PRN Reason: Hypoglycemia Protocol Stop: 06/30/24 08:11 Glucose (Glucose 40% Gel 15 Gm Tube) 15 - 30 gm PO UD PRN; Protocol PRN Reason: Hypoglycemia Protocol Stop: 07/02/24 08:11 Glucose (Glucose 10 Tab/Tube) 4 - 8 tab PO UD PRN; Protocol PRN Reason: Hypoglycemia Protocol Stop: 07/02/24 08:11 Cefepime HCl (Maxipime 2000mg) 1,000 mg in 10 mls @ 5 mls/min IV Q24H GURU Stop: 06/06/24 15:59 Last Admin: 06/02/24 17:28 Dose: 5 mls/min Iron Sucrose 300 mg/ Sodium (Chloride) 265 mls @ 176.667 mls/hr IV ONE ONE Stop: 06/04/24 11:29 Insulin Aspart (Insulin Aspart Per Unit Charge) 0 units SC ACHS [facility] Stop: 06/23/24 05:59 Last Admin: 06/03/24 08:23 Dose: 5 units Levothyroxine Sodium (Levothyroxine Sodium 200 Mcg Tablet) 200 mcg PO DAILYBB [facility] Stop: 07/02/24 06:29 Last Admin: 06/03/24 05:33 Dose: 200 mcg Melatonin (Melatonin 3 Mg Tab) 3 mg PO HS PRN PRN Reason: Insomnia Stop: 07/02/24 21:07 Last Admin: 05/23/24 22:41 Dose: 3 mg Menthol (Cough Drop (Sugar Free) Zahida 24 Zahida/1 Box) 1 zahida BUCCAL PRN PRN PRN Reason: Sore Throat Stop: 06/30/24 15:39 Miconazole Nitrate (Miconazole Nitrate Powder 85 Gm) 1 appln EXT PRN PRN PRN Reason: Affected Skin Folds Stop: 07/08/24 10:29 Midodrine (Midodrine Hcl 10 Mg Tab) 10 mg PO TID GURU Stop: 07/02/24 21:07 Last Admin: 06/03/24 08:29 Dose: 10 mg Miscellaneous (Carbohydrates For Hypoglycemia ) 15 - 30 gm PO UD PRN PRN Reason: Hypoglycemia Protocol Stop: 07/02/24 08:11 Ondansetron HCl (Ondansetron Inj 2 Mg/Ml 2 Ml Vial) 4 mg IV Q6H PRN PRN Reason: Nausea Stop: 07/02/24 21:07 Last Admin: 05/25/24 13:45 Dose: 4 mg Pantoprazole Sodium (Pantoprazole 40 Mg Tab) 40 mg PO QAM [facility] Stop: 07/02/24 08:59 Last Admin: 06/03/24 08:29 Dose: 40 mg Polyethylene Glycol (Polyethylene (Miralax) 17 Gm Pack) 17 gm PO DAILY PRN PRN Reason: Constipation Stop: 07/02/24 21:07 Last Admin: 06/01/24 13:19 Dose: 17 gm Prednisone (Prednisone 10 Mg Tablet) 10 mg PO DAILY [facility]; Taper Stop: 06/09/24 08:59 Last Admin: 06/03/24 08:29 Dose: 10 mg Sevelamer Carbonate (Sevelamer Carbonate 800 Mg Tab) 800 mg PO TIDM [facility] Stop: 07/02/24 16:59 Last Admin: 06/03/24 12:38 Dose: 800 mg Trimethoprim/Sulfamethoxazole (Sulfa/Trimeth 400/80mg Tab) 1 tab PO MoWeFr@2100 [facility] Stop: 07/07/24 20:59 Last Admin: 06/02/24 20:44 Dose: 1 tab Vitamin B Complex/Folic Acid (Nephrocaps) 1 cap PO QAM [facility] Stop: 07/02/24 08:59 Last Admin: 06/03/24 08:29 Dose: 1 cap PG Care Time/CCT Total # of Minutes Spent Total Time Spent with Patient: Total time spent is greater than 50% in coordination of care (as documented) at patient's floor/unit and/or counseling patient: Advanced Care Planning 75180 Advanced Care Planning 30 [place] [address] IN/OBS CONSULT LVL 3,45M Patient Type New History Expanded Problem Focused Exam Problem Focused Medical Decision Making Moderate Complexity Diagnoses Palliative care by specialist Z51.5 Quality of life palliative care encounter Z51.5 Counseling regarding advanced directives and goals of care Z71.89 Additional Codes Advanced Care Planning - 40165 Advanced Care Planning 30 Min: 58780 Advanced Care Planning 30 Min ([id number])
--- NOTE | 2024-06-03 15:29 | Communication Note ---
Date of Service: June 03, 2024 Thank you for including Palliative Care in the management of this patient. Pt was off unit for HD when I attempted to assess, no family present. Phone call placed to pt's , no answer - general VM left. Discussed with attending and BSRN, will address GOC with pt an his in morning of 06/04/24. Please call with any questions or concerns regarding this consultation.
[2024-06-04 03:05] LABS: Appearance Urine Cloudy (Clear)
[2024-06-04 03:06] LABS: Specific Gravity Urine 1.022 (1.000-1.030)
[2024-06-04 03:09] LABS: Bacteria Urine None Seen (None Seen); RBC Urine 0-2 /hpf (0-2); WBC Urine 0-5 /hpf (0-5)
--- NOTE | 2024-06-04 09:49 | Nephrology Progress Note ---
Date of Service June 04, 2024 Assessment & Plan (1) End stage renal disease on dialysis: (2) Anemia: (3) Renal cell carcinoma: (4) Acute pulmonary edema: (5) Weakness: Plan 68-year-old gentleman with end-stage kidney disease with solitary kidney and hypertensive nephrosclerosis, Started on hemodialysis after having had tunneled dialysis catheter on 04/16/2024. He was admitted with generalized weakness, pulmonary congestion and significant volume overload and over last few days had UF challenge and more than 20 kg weight loss. Had A-fib with RVR and had AV maggie ablation and pacemaker placement on 05/13/2024. Had second AV maggie ablation 2 weeks ago. Has been getting physical therapy but not able to do much due to profound weakness and LE edema and heaviness. No meaningful improvement in bilateral lower extremity edema despite having daily HD and extra UF respiratory status improved, could be although due to antibiotic. Had dialysis yesterday but had only 1.1 L UF. Did not ahve much UO with high dose IV Bumex yesterday. --Plan to do dialysis daily through the weekend to improve volume status, aim for EDW around 138 kg or lower, however if UF remains challenging, may need to consider stopping dialysis. Waiting on palliative care evaluation. --on Venofer and Epogen --Midodrine 10 mg prior to dialysis --continue renal vitamin and phosphate binder. --Dose medications for less than 10. --Prognosis remains poor with prolonged hospitalization and not much clinical improvement. Had long discussion with Mr. Guadalupe and explained that we are really not making any progress even with back to back dialysis. He understands overall prognosis is poor and leaning towards ongoing discuss about goals of care if no significant improvement by weekend. Admission and Anticipated Discharge Date Admission Date: April 28, 2024 Subjective Mr. Guadalupe was seen and evaluated this morning. Reports overall feeling about the same, overall feels well and asymptomatic, decent appetite but frustrated that he is really not able to do much, continues to have significant lower extremity edema, feels fatigued and exhausted, even eating makes him totally exhausted. Blood pressure remains low. Did not much urine with IV Bumex. Had dialysis yesterday but had only 1.1 L UF as blood pressure dropped further with chronic hypotension. Left foot ischemic toes,seems to be worsening. Review of Systems Review of Systems: Detailed review of system was done and pertinent positives and negatives are mentioned above. Physical Exam Constitutional: WD/WN, vitals as above + ill appearing; no acute distress Eyes: + anicteric sclerae Neck: normal visual inspection Respiratory: Auscultation: + diminished lung sounds Cardiovascular: Rate/Rhythm: regular rate and regular rhythm Heart Sounds: normal S1 and normal S2 Extremities: + edema (2 to 3 + b/l LE edema), + vascular access device (Rt IJ TDC) and + AV fistula (Rt IJ TDC) Musculoskeletal: left foot cold with multiple ischemic toes. Skin: + turgor decreased, + lesion, + skin atr ophy and + ecchymosis Neurologic: no focal motor deficits and not confused Psychiatric: Orientation: alert and oriented x 3 Results & Data Vital Signs (Past 12 Hours) Vital Signs Temp Pulse Pulse Resp BP Pulse Ox O2 Del Method 06/04/24 07:15 80 06/04/24 07:12 36.4 C L 80 27 H 90/56 L 98 Nasal Cannula 06/04/24 03:08 80 16 96 06/04/24 02:46 36.5 C 84 18 89/65 L 97 BiPAP 06/03/24 22:50 36.3 C L 89 18 93/64 L 99 Nasal Cannula O2 Flow Rate FiO2 06/04/24 07:15 06/04/24 07:12 06/04/24 03:08 25 06/04/24 02:46 06/03/24 22:50 3.0 PG Care Time/CCT Total # of Minutes Spent Total Time Spent with Patient: Total time spent is greater than 50% in coordination of care (as documented) at patient's floor/unit and/or counseling patient: Coding Level of Care Code 92819 SUB INP/OBS CARE 2/35MIN Diagnoses End stage renal disease on dialysis N18.6; Z99.2 Anemia D64.9 Renal cell carcinoma C64.9 Acute pulmonary edema J81.0 Weakness R53.1
--- NOTE | 2024-06-04 10:32 | Hospitalist Progress Note ---
Date of Service June 04, 2024 Assessment & Plan (1) Anasarca: Plan: This is a 68yo HD dependent ESRD since March 2024, afib, renal cell ca (s/p R nephrectomy for renal cell ca, on opdivo), HLD, Hypothyroidism, SARAH as well as autoimmune hepatitis w/ long standing steroids ~1yr presented for b/l leg weakness on 05/18 and found to be positive for +rhinovirus/enterovirus and also tx for PNA while inpatient and has had complicated hospital course severe fluid overload, pulmonary edema on exam, Etiology could be multifactorial, ESRD, CHFwpEF Patient currently undergoing daily dialysis without much improvement consult palliative to discuss goals of care Prognosis is guarded (2) Acute hypoxic respiratory failure: Plan: Recurrent acute hypoxic respiratory failure overnight 05/29 - 05/30. - component of volume overload/pulmonary edema - probable pneumonia - CXR film is is overall unchanged to improved from previous with bibasilar R>L opacities, R>L pleural effusion, MRSA nares negative so unlikely MRSA pna -procal significantly elevated (has never been normal this admission, can be elevated in ESRD but would not expect this much) -continue cefepime -has been on bactrim for PJP prophylaxis -Continue daily dialysis -Improving SOB and hypoxia, now on 2L of oxygen (3) Atrial fibrillation with rapid ventricular response: Plan: Presentation on admission: chronic, long-standing permanent a.fib followed by outside cardiology near [place] Early in admission had had poor rate control despite meto succ BID + cardizem CD 120mg HS. Intolerant of increase because of hypotension. Was poor candidate for amio w/ abn LFTs and autoimmune hepatitis, prior cardioversion in past not successful AV node ablation with permanent pacemaker insertion on 05/13/[address] Mitchell eventually had recurrent A-fib repeat ablation with Dr Kyle on 05/25 continue apixaban heart rate has been in 80s, telemetry has been interpreted as A-fib last few days and paced today (4) End stage renal disease on dialysis: Plan: New HD dependent since March 24/2025. Hx solitary kidney status s/p R nephrectomy in the past for renal cell ca. He had 9 days of serial HD early in stay for severe volume overload. UF has been limited by hypotension, on midodrine. Several episodes of acute pulmonary edema this admission. Will have HD several days in a row, discussed with Nephrology his lowest weight 139 kg mid Apr, now up to 146 with significantly more anasarca/LE edema bumex 4 mg po discontinued, patient not making any urine (5) Thrombocytopenia: Plan: IMPROVING, today 69, B12/folate wnl. Peripheral smear without suggestion TTP/HUS, no evidence for DIC. EBV PCR is positive s/p bone marrow biopsy 05/24, pathology pending BM chromosome analysis/flow cytometry/pathology pending path still pending AM CBC (6) Autoimmune hepatitis treated with steroids: Plan: autoimmune hepatitis diagnosed July 2023 secondary to immunotherapy for renal cell ca and has been on chronic steroids since that time --> During Mar stay was on burst for this issues as well as concern immunotherapy contributing to his thrombocytopenia hepatitis - 2nd to Opdivo? 2nd to hepatic congestion from volume overload? combination of factors? EBV IgM returned POSITIVE EBV PCR also positive indicating acute or subacute infection (or re-activation) This could be contributing to hepatitis & low platelets CMV & parvovirus titers pending HepA, HepB, and HepC ab's were NEGATIVE in 06/2023 LFTs remain mildly high despite steroids , ammonia wnl Initially was on 70mg/day weaning q7d by 10mg increments - Down to prednisone 20mg daily through 06/01 then to be 10mg x 7d - Continues w/ PJP prophy until prednisone is <20mg/day; use SS tmp/sulfa 1 tab M/W/F at HS for prophylaxis - continue for now Obtained formal GI consult to ensure nothing else is causing the liver dysfunction - they agree that it is likely due to immunotherapy/autoimmune +/- right heart failure/passive congestion (7) PAD (peripheral artery disease): Plan: biphasic waveforms on LLE proximal vessels, monophasic waveforms on distal vessels -ideally should be on antiplatelet agents and statin but both contraindicated right now due to abnormal LFTs and low platelets Consult for Dr Rajan chandler, saw 05/25 (see note) --> pt has three vessel runoff/no acute intervention planned and can have outpt f/u. --> Notify sooner of any worsening/evidence for limb threatening CLI going forward He has blue toes syndrome, now getting worse, with blisters forming - a few weeks ago had blue tip of 2nd toe that improved, recently much worse with multiple blue toes - suspect atheroembolic shower caused by most recent EP procedure Suspect he also has significant small vessel vascular disease and poor tissue perfusion related to multiple acute and chronic problems (8) Weakness: Plan: He is heavily deconditioned Multifactorial, patient has had a long hospital stay Continues with therapy while inpatient w/ plans for INTENSIVE rehab post-dc which he should get at [facility] -lumbar spine issue cannot be ruled out but less likely (no paresthesias or radicular pain of legs) Plan Stage 4 renal cell carcinoma - hx R nephrectomy, disease progression has been slow, on Opdivo followed by Dr. Grijalva at [facility]. L kidney cysts or masses on most recent imaging. 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 Could be contributing to hepatitis thrombocytopenia and weakness. Supportive care Chronic conditions/resolved conditions: Elevated troponin - peak HS trop 103 early in the admission without evidence for HENRY and suspected likely myocardial demand ischemia in setting volume overload from above/infection/pna/etc Pneumonia - completed treatment early in stay for enterovirus/rhinovirus and possible superimposed bacterial pneumonia Aortic stenosis s/p TAVR - last echo with normal valve function (04/17) Hypothyroidism: TSH wnl and continues on usual Synthroid dosing Morbid Obesity: BMI 38- decreasing prednisone/HD for volume, eventual rehab and wt loss encouraged as able Pre-DM: A1c 6.1 in March and well controlled w/ SSI while inaptient with ongoing steroid use for autoimmune hepatitis/other as above BRBPR: 2nd to hemorrhoids vs fissures unable to visualize however is anal outlet. doubtful diverticulosis and given anusol suppositories starting 05/19 and has been stable since stopping DVT proph - eliquis 2.5mg BID Dispo continued inpatient stay and plan for [facility] when medically stable, prognosis is guarded. consult palliative to discuss goals of care updated his in the room Admission and Anticipated Discharge Date Admission Date: April 28, 2024 Subjective Patient seen and examined, his shortness of breath is much improved however is still very weak and deconditioned Review of Systems Review of Systems: All systems reviewed are negative, apart from the ones contained in the history. Physical Exam Physical Exam: The patient is awake, alert and oriented 3, well developed and well nourished, normocephalic and atraumatic, lying in bed and in no acute distress. HEENT--PERRL, EOMI, mucous membranes and oropharynx mildly dry Neck--supple. No JVD. No bruits. Thyroid normal, trachea midline, no adenopathy. Heart--normal S1 and S2. No murmurs, rubs or gallops. Lungs--clear bilaterally, no respiratory distress, no accessory muscle use. Abdomen--normal bowel sounds and soft. Extremities--no cyanosis or clubbing. pitting edema. Dermatologic--normal skin turgor, normal color, no abnormal lymph nodes, no rash. Neurologic--cranial nerves II through XII grossly intact. Rheumatologic--normal range of motion. Psychiatric--normal affect. Results & Data Results & Data Vital Signs (Past 12 Hours) Vital Signs Temp Pulse Pulse Resp BP Pulse Ox O2 Del Method 06/04/24 09:43 Nasal Cannula 06/04/24 07:15 80 06/04/24 07:12 97.5 F L 80 27 H 90/56 L 98 Nasal Cannula 06/04/24 03:08 80 16 96 06/04/24 02:46 97.7 F 84 18 89/65 L 97 BiPAP 06/03/24 22:50 97.3 F L 89 18 93/64 L 99 Nasal Cannula O2 Flow Rate FiO2 06/04/24 09:43 3 06/04/24 07:15 06/04/24 07:12 06/04/24 03:08 25 06/04/24 02:46 06/03/24 22:50 3.0 PG Care Time/CCT Total # of Minutes Spent Total Time Spent with Patient: Total time spent is greater than 50% in coordination of care (as documented) at patient's floor/unit and/or counseling patient: Coding Level of Care Code 60701 SUB INP/OBS CARE 2/35MIN Diagnoses Anasarca R60.1 Acute hypoxic respiratory failure J96.01 Atrial fibrillation with rapid ventricular response I48.91 End stage renal disease on dialysis N18.6; Z99.2 Thrombocytopenia D69.6 Autoimmune hepatitis treated with steroids K75.4 PAD (peripheral artery disease) I73.9 Weakness R53.1 Time Spent (min) 35
[2024-06-04] MEDS: IRON SUCROSE 300 MG in SODIUM CHLORIDE 0.9% 250 ML IV ONE (11:26)
[2024-06-05 08:37] LABS: BUN Creatinine Ratio 11.1 (10-20); Calcium 8.7 mg/dl (8.6-10.3); Creatinine Clr Calc Pharmacy 44.5 ml/min; Potassium 3.7 mmol/L (3.5-5.1)
--- NOTE | 2024-06-05 09:07 | Hospitalist Progress Note ---
Date of Service June 05, 2024 Assessment & Plan (1) Anasarca: Plan: This is a 68yo HD dependent ESRD since March 2024, afib, renal cell ca (s/p R nephrectomy for renal cell ca, on opdivo), HLD, Hypothyroidism, SARAH as well as autoimmune hepatitis w/ long standing steroids ~1yr presented for b/l leg weakness on 05/18 and found to be positive for +rhinovirus/enterovirus and also tx for PNA while inpatient and has had complicated hospital course severe fluid overload, pulmonary edema on exam, Etiology could be multifactorial, ESRD, CHFwpEF Patient currently undergoing daily dialysis without much improvement consult palliative to discuss goals of care Prognosis is guarded plan is to continue HD throughout the weekend and make him hospice if still no improvement (2) Acute hypoxic respiratory failure: Plan: Recurrent acute hypoxic respiratory failure overnight 05/29 - 05/30. - component of volume overload/pulmonary edema - probable pneumonia - CXR film is is overall unchanged to improved from previous with bibasilar R>L opacities, R>L pleural effusion, MRSA nares negative so unlikely MRSA pna -procal significantly elevated (has never been normal this admission, can be elevated in ESRD but would not expect this much) -continue cefepime -has been on bactrim for PJP prophylaxis -Continue daily dialysis -Improving SOB and hypoxia, now on 2L of oxygen (3) Atrial fibrillation with rapid ventricular response: Plan: Presentation on admission: chronic, long-standing permanent a.fib followed by outside cardiology near [place] Early in admission had had poor rate control despite meto succ BID + cardizem CD 120mg HS. Intolerant of increase because of hypotension. Was poor candidate for amio w/ abn LFTs and autoimmune hepatitis, prior cardioversion in past not successful AV node ablation with permanent pacemaker insertion on 05/13/[address] Mitchell eventually had recurrent A-fib repeat ablation with Dr Kyle on 05/25 continue apixaban heart rate has been in 80s, telemetry has been interpreted as A-fib last few days and paced today (4) End stage renal disease on dialysis: Plan: New HD dependent since March 24/2025. Hx solitary kidney status s/p R nephrectomy in the past for renal cell ca. He had 9 days of serial HD early in stay for severe volume overload. UF has been limited by hypotension, on midodrine. Several episodes of acute pulmonary edema this admission. Will have HD several days in a row, discussed with Nephrology his lowest weight 139 kg mid Apr, now up to 146 with significantly more anasarca/LE edema bumex 4 mg po discontinued, patient not making any urine (5) Thrombocytopenia: Plan: IMPROVING, today 69, B12/folate wnl. Peripheral smear without suggestion TTP/HUS, no evidence for DIC. EBV PCR is positive s/p bone marrow biopsy 05/24, pathology pending BM chromosome analysis/flow cytometry/pathology pending path still pending AM CBC (6) Autoimmune hepatitis treated with steroids: Plan: autoimmune hepatitis diagnosed July 2023 secondary to immunotherapy for renal cell ca and has been on chronic steroids since that time --> During Mar stay was on burst for this issues as well as concern immunotherapy contributing to his thrombocytopenia hepatitis - 2nd to Opdivo? 2nd to hepatic congestion from volume overload? combination of factors? EBV IgM returned POSITIVE EBV PCR also positive indicating acute or subacute infection (or re-activation) This could be contributing to hepatitis & low platelets CMV & parvovirus titers pending HepA, HepB, and HepC ab's were NEGATIVE in 06/2023 LFTs remain mildly high despite steroids , ammonia wnl Initially was on 70mg/day weaning q7d by 10mg increments - Down to prednisone 20mg daily through 06/01 then to be 10mg x 7d - Continues w/ PJP prophy until prednisone is <20mg/day; use SS tmp/sulfa 1 tab M/W/F at HS for prophylaxis - continue for now Obtained formal GI consult to ensure nothing else is causing the liver dysfunction - they agree that it is likely due to immunotherapy/autoimmune +/- right heart failure/passive congestion (7) PAD (peripheral artery disease): Plan: biphasic waveforms on LLE proximal vessels, monophasic waveforms on distal vessels -ideally should be on antiplatelet agents and statin but both contraindicated right now due to abnormal LFTs and low platelets Consult for Dr Rajan chandler, saw 05/25 (see note) --> pt has three vessel runoff/no acute intervention planned and can have outpt f/u. --> Notify sooner of any worsening/evidence for limb threatening CLI going forward He has blue toes syndrome, now getting worse, with blisters forming - a few weeks ago had blue tip of 2nd toe that improved, recently much worse with multiple blue toes - suspect atheroembolic shower caused by most recent EP procedure Suspect he also has significant small vessel vascular disease and poor tissue perfusion related to multiple acute and chronic problems (8) Weakness: Plan: He is heavily deconditioned Multifactorial, patient has had a long hospital stay Continues with therapy while inpatient w/ plans for INTENSIVE rehab post-dc which he should get at [facility] -lumbar spine issue cannot be ruled out but less likely (no paresthesias or radicular pain of legs) Plan Stage 4 renal cell carcinoma - hx R nephrectomy, disease progression has been slow, on Opdivo followed by Dr. Grijalva at [facility]. L kidney cysts or masses on most recent imaging. 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 Could be contributing to hepatitis thrombocytopenia and weakness. Supportive care Chronic conditions/resolved conditions: Elevated troponin - peak HS trop 103 early in the admission without evidence for HENRY and suspected likely myocardial demand ischemia in setting volume overload from above/infection/pna/etc Pneumonia - completed treatment early in stay for enterovirus/rhinovirus and possible superimposed bacterial pneumonia Aortic stenosis s/p TAVR - last echo with normal valve function (04/17) Hypothyroidism: TSH wnl and continues on usual Synthroid dosing Morbid Obesity: BMI 38- decreasing prednisone/HD for volume, eventual rehab and wt loss encouraged as able Pre-DM: A1c 6.1 in March and well controlled w/ SSI while inaptient with ongoing steroid use for autoimmune hepatitis/other as above BRBPR: 2nd to hemorrhoids vs fissures unable to visualize however is anal outlet. doubtful diverticulosis and given anusol suppositories starting 05/19 and has been stable since stopping DVT proph - eliquis 2.5mg BID Dispo plan is to continue HD throughout the weekend and make him hospice if still no improvement updated his in the room Admission and Anticipated Discharge Date Admission Date: April 28, 2024 Subjective Patient seen and examined, his shortness of breath is much improved however is still very weak and deconditioned, plan is to continue HD throughout the weekend and make him hospice if still no improvement Review of Systems Review of Systems: All systems reviewed are negative, apart from the ones contained in the history. Physical Exam Physical Exam: The patient is awake, alert and oriented 3, well developed and well nourished, normocephalic and atraumatic, lying in bed and in no acute distress. HEENT--PERRL, EOMI, mucous membranes and oropharynx mildly dry Neck--supple. No JVD. No bruits. Thyroid normal, trachea midline, no adenopathy. Heart--normal S1 and S2. No murmurs, rubs or gallops. Lungs--clear bilaterally, no respiratory distress, no accessory muscle use. Abdomen--normal bowel sounds and soft. Extremities--no cyanosis or clubbing. pitting edema. Dermatologic--normal skin turgor, normal color, no abnormal lymph nodes, no rash. Neurologic--cranial nerves II through XII grossly intact. Rheumatologic--normal range of motion. Psychiatric--normal affect. Results & Data Results & Data Vital Signs (Past 12 Hours) Vital Signs Temp Pulse Pulse Pulse Resp BP BP 06/05/24 07:47 97.5 F L 81 17 88/57 L 06/05/24 03:44 80 15 06/05/24 03:13 97.9 F 74 20 108/68 06/04/24 23:12 85 22 06/04/24 22:41 98.1 F 78 18 100/63 Pulse Ox O2 Del Method FiO2 06/05/24 07:47 98 Nasal Cannula 06/05/24 03:44 97 25 06/05/24 03:13 98 BiPAP 06/04/24 23:12 99 25 06/04/24 22:41 97 Nasal Cannula PG Care Time/CCT Total # of Minutes Spent Total Time Spent with Patient: Total time spent is greater than 50% in coordination of care (as documented) at patient's floor/unit and/or counseling patient: Coding Level of Care Code 49319 SUB INP/OBS CARE 2/35MIN Diagnoses Anasarca R60.1 Acute hypoxic respiratory failure J96.01 Atrial fibrillation with rapid ventricular response I48.91 End stage renal disease on dialysis N18.6; Z99.2 Thrombocytopenia D69.6 Autoimmune hepatitis treated with steroids K75.4 PAD (peripheral artery disease) I73.9 Weakness R53.1 Time Spent (min) 35
[2024-06-05] MEDS ORDERED: Nursing to Pharmacy Communication SCH (10:45)
--- NOTE | 2024-06-05 11:30 | Nephrology Progress Note ---
Date of Service June 05, 2024 Assessment & Plan (1) End stage renal disease on dialysis: Plan: Orders for HD today entered into the EHR and reviewed with supervisory aide. TDC functioning well. Paige is tolerating treatment with noted intradialytic hypotension. UF as tolerated. Midodrine 10 mg provided prior to HD with a second dose during treatment. Goals of care are transitioning to palliative and comfort measures. After today, Paige would like to hold dialysis and monitor. He anticipates a family meeting early next week. Medications are appropriate for kidney function. Consistent with changing goals of care, I would suggest eliminating dietary r estrictions. (2) Anemia: (3) Renal cell carcinoma: (4) Atrial fibrillation: Plan: AV maggie ablation and pacemaker placement on 05/13/2024. Anticoagulated with Eliquis. (5) Quality of life palliative care encounter: Plan: Goals of care discussed with Rodolfo and his . We reviewed end of life planning. We discussed stopping dialysis treatments. We discussed stopping blood draws and weaning off medications. Paige and his both mentioned that the palliative care team will be coordinating a family meeting on Friday to discuss the plan of care moving forward. Admission and Anticipated Discharge Date Admission Date: April 28, 2024 Subjective No acute events overnight. Rodolfo was seen and evaluated prior to and during hem odialysis this AM. I met with his separately. Rodolfo is resolved to starting to withdraw care. He does not want to continue dialysis if his health and functional status are not going to improve overall. His understands his wishes. Rodolfo values his independence and his current quality of life is consistent with personal goals. They are gathering family and believe a family meeting is to be arranged with the palliative care team for Friday. Rodolfo does not want to escalate care in any way. He told me that he is planning to wean off dialysis but he would like to do what he can in order to celebrate his 49th wedding anniversary on June 24. Review of Systems Review of Systems: All systems reviewed & are unremarkable except as noted in HPI & below Physical Exam Constitutional: well developed, + morbidly obese and + frail appearing; no acute distress Eyes: + conjunctival abnormality and + anicter ic sclerae; no scleral abnormality and no corneal abnormality ENMT: Mouth: oral mucous membranes not dry Neck: normal visual inspection and trachea midline Respiratory: normal respiratory effort Auscultation: lungs clear to auscultation bilaterally Cardiovascular: Rate/Rhythm: regular rate and regular rhythm Heart Sounds: normal S1 and normal S2 Extremities: + edema and + AV fistula (thrombosed) Musculoskeletal: Extremities: no cyanosis and no clubbing Skin: no jaundice Neurologic: Motor/Sensory: no tremor and no asterixis Psychiatric: Orientation: alert and oriented x 3 Results & Data Vital Signs (Past 12 Hours) Vital Signs Temp Pulse Pulse Pulse Pulse Resp BP 06/05/24 10:00 78 81/22 L 06/05/24 09:30 80 103/67 06/05/24 09:07 80 106/58 L 06/05/24 09:01 36.4 C L 80 06/05/24 07:47 36.4 C L 81 17 06/05/24 03:44 80 15 06/05/24 03:13 36.6 C 74 20 BP BP Pulse Ox O2 Del Method FiO2 06/05/24 10:00 06/05/24 09:30 06/05/24 09:07 06/05/24 09:01 06/05/24 07:47 88/57 L 98 Nasal Cannula 06/05/24 03:44 97 06/05/24 03:13 108/68 98 BiPAP Laboratory Results Laboratory Results - last 24 hr 06/04/24 06/04/24 06/04/24 11:40 16:39 20:38 Sodium Potassium Chloride Carbon Dioxide Anion Gap BUN Creatinine Est Cr Clr Drug Dosing eGFR BUN/Creatinine Ratio Glucose POC Glucose 169 H 123 H 179 H Calcium 06/05/24 06/05/24 07:44 08:06 Sodium 135 L Potassium 3.7 Chloride 99 Carbon Dioxide 30 Anion Gap 6 BUN 26 H Creatinine 2.34 H Est Cr Clr Drug Dosing 44.5 eGFR 29.19 BUN/Creatinine Ratio 11.1 Glucose 122 H POC Glucose 121 H Calcium 8.7 PG Care Time/CCT Total # of Minutes Spent Total Time Spent with Patient: Total time spent is greater than 50% in coordination of care (as documented) at patient's floor/unit and/or counseling patient: Coding Level of Care Code 16614 SUB INP/OBS CARE 3/50MIN Diagnoses End stage renal disease on dialysis N18.6; Z99.2 Anemia D64.9 Renal cell carcinoma C64.9 Atrial fibrillation I48.91 Atrial fibrillation type: unspecified Quality of life palliative care encounter Z51.5 (4) Atrial fibrillation Atrial fibrillation type: unspecified Qualified Code(s): I48.91 - Unspecified atrial fibrillation
[2024-06-05 22:48] LABS: Mycoplasma pneumoniae Ab, IgM 456 U/mL (<770); Pneumococcal IgG Type 1 1.1; Pneumococcal IgG Type 12 (12F) 1.3; Pneumococcal IgG Type 14 0.8; Pneumococcal IgG Type 17 (17F) <0.3; Pneumococcal IgG Type 2 0.3; Pneumococcal IgG Type 20 <0.3; Pneumococcal IgG Type 22 (22F) <0.3; Pneumococcal IgG Type 23 (23F) 0.8; Pneumococcal IgG Type 26 (6B) <0.3; Pneumococcal IgG Type 3 <0.3; Pneumococcal IgG Type 34 (10A) 2.3; Pneumococcal IgG Type 4 <0.3; Pneumococcal IgG Type 43 (11A) 0.6; Pneumococcal IgG Type 5 1.7; Pneumococcal IgG Type 51 (7F) 9.4; Pneumococcal IgG Type 54 (15B) 1.1; Pneumococcal IgG Type 56 (18C) 0.7; Pneumococcal IgG Type 57 (19A) 2.9; Pneumococcal IgG Type 68 (9V) <0.3; Pneumococcal IgG Type 70 (33F) 3.9; Pneumococcal IgG Type 8 0.6; Pneumococcal IgG Type 9 (9N) <0.3
[2024-06-06 08:19] LABS: Hematocrit (blood only) 32.5 % (42.0-52.0); Hemoglobin 9.2 g/dl (14.0-18.0); Mean Corpuscular Hemoglobin 29.4 pg (25.0-34.0); Mean Corpuscular Hgb Conc 28.3 g/dL (32.0-36.0); Mean Corpuscular Volume 103.8 fL (80.0-100.0); Nucleated RBC # (auto) 0.17 K/uL (0.00-0.12); Nucleated RBC % (auto) 1.9 %; Platelet Count 52 K/uL (130-400); RDW Coefficient of Variation 30.5 % (11.5-14.5); RDW Standard Deviation 113.5 fL (36.4-46.3); Red Blood Count 3.13 M/uL (4.70-6.10); White Blood Count 9.18 K/ul (4.8-10.8)
[2024-06-06 08:24] LABS: BUN Creatinine Ratio 10.8 (10-20); Calcium 8.6 mg/dl (8.6-10.3); Creatinine Clr Calc Pharmacy 49.1 ml/min; Potassium 4.2 mmol/L (3.5-5.1)
--- NOTE | 2024-06-06 09:48 | Hospitalist Progress Note ---
Date of Service June 06, 2024 Assessment & Plan (1) Anasarca: Plan: This is a 68yo HD dependent ESRD since March 2024, afib, renal cell ca (s/p R nephrectomy for renal cell ca, on opdivo), HLD, Hypothyroidism, SARAH as well as autoimmune hepatitis w/ long standing steroids ~1yr presented for b/l leg weakness on 05/18 and found to be positive for +rhinovirus/enterovirus and also tx for PNA while inpatient and has had complicated hospital course severe fluid overload, pulmonary edema on exam, Etiology could be multifactorial, ESRD, CHFwpEF Patient currently undergoing daily dialysis without much improvement consult palliative to discuss goals of care, family to meet today for goals of care Prognosis is poor plan is to continue HD throughout the weekend and make him hospice if still no improvement (2) Acute hypoxic respiratory failure: Plan: some improvement following HD - component of volume overload/pulmonary edema - probable pneumonia - CXR film is is overall unchanged to improved from previous with bibasilar R>L opacities, R>L pleural effusion, MRSA nares negative so unlikely MRSA pna -procal significantly elevated (has never been normal this admission, can be elevated in ESRD but would not expect this much) -continue cefepime -has been on bactrim for PJP prophylaxis -Continue daily dialysis -Improving SOB and hypoxia, now on 2L of oxygen (3) Atrial fibrillation with rapid ventricular response: Plan: Presentation on admission: chronic, long-standing permanent a.fib followed by outside cardiology near [place] Early in admission had had poor rate control despite meto succ BID + cardizem CD 120mg HS. Intolerant of increase because of hypotension. Was poor candidate for amio w/ abn LFTs and autoimmune hepatitis, prior cardioversion in past not successful AV node ablation with permanent pacemaker insertion on 05/13/[address] Mitchell eventually had recurrent A-fib repeat ablation with Dr Kyle on 05/25 continue apixaban heart rate has been in 80s, telemetry has been interpreted as A-fib last few days and paced today (4) End stage renal disease on dialysis: Plan: New HD dependent since March 24/2025. Hx solitary kidney status s/p R nephrectomy in the past for renal cell ca. He had 9 days of serial HD early in stay for severe volume overload. UF has been limited by hypotension, on midodrine. Several episodes of acute pulmonary edema this admission. Will have HD several days in a row, discussed with Nephrology his lowest weight 139 kg mid Apr, now up to 146 with significantly more anasarca/LE edema bumex 4 mg po discontinued, patient not making any urine (5) Thrombocytopenia: Plan: IMPROVING, today 69, B12/folate wnl. Peripheral smear without suggestion TTP/HUS, no evidence for DIC. EBV PCR is positive s/p bone marrow biopsy 05/24, pathology pending BM chromosome analysis/flow cytometry/pathology pending path still pending AM CBC (6) Autoimmune hepatitis treated with steroids: Plan: autoimmune hepatitis diagnosed July 2023 secondary to immunotherapy for renal cell ca and has been on chronic steroids since that time --> During Mar stay was on burst for this issues as well as concern immunotherapy contributing to his thrombocytopenia hepatitis - 2nd to Opdivo? 2nd to hepatic congestion from volume overload? combination of factors? EBV IgM returned POSITIVE EBV PCR also positive indicating acute or subacute infection (or re-activation) This could be contributing to hepatitis & low platelets CMV & parvovirus titers pending HepA, HepB, and HepC ab's were NEGATIVE in 06/2023 LFTs remain mildly high despite steroids , ammonia wnl Initially was on 70mg/day weaning q7d by 10mg increments - Down to prednisone 20mg daily through 06/01 then to be 10mg x 7d - Continues w/ PJP prophy until prednisone is <20mg/day; use SS tmp/sulfa 1 tab M/W/F at HS for prophylaxis - continue for now Obtained formal GI consult to ensure nothing else is causing the liver dysfunction - they agree that it is likely due to immunotherapy/autoimmune +/- right heart failure/passive congestion (7) PAD (peripheral artery disease): Plan: biphasic waveforms on LLE proximal vessels, monophasic waveforms on distal vessels -ideally should be on antiplatelet agents and statin but both contraindicated right now due to abnormal LFTs and low platelets Consult for Dr Rajan chandler, saw 05/25 (see note) --> pt has three vessel runoff/no acute intervention planned and can have outpt f/u. --> Notify sooner of any worsening/evidence for limb threatening CLI going forward He has blue toes syndrome, now getting worse, with blisters forming - a few weeks ago had blue tip of 2nd toe that improved, recently much worse with multiple blue toes - suspect atheroembolic shower caused by most recent EP procedure Suspect he also has significant small vessel vascular disease and poor tissue perfusion related to multiple acute and chronic problems (8) Weakness: Plan: He is heavily deconditioned Multifactorial, patient has had a long hospital stay Continues with therapy while inpatient w/ plans for INTENSIVE rehab post-dc which he should get at [facility] -lumbar spine issue cannot be ruled out but less likely (no paresthesias or radicular pain of legs) Plan Stage 4 renal cell carcinoma - hx R nephrectomy, disease progression has been slow, on Opdivo followed by Dr. Grijalva at [facility]. L kidney cysts or masses on most recent imaging. 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 Could be contributing to hepatitis thrombocytopenia and weakness. Supportive care Chronic conditions/resolved conditions: Elevated troponin - peak HS trop 103 early in the admission without evidence for HENRY and suspected likely myocardial demand ischemia in setting volume overload from above/infection/pna/etc Pneumonia - completed treatment early in stay for enterovirus/rhinovirus and possible superimposed bacterial pneumonia Aortic stenosis s/p TAVR - last echo with normal valve function (04/17) Hypothyroidism: TSH wnl and continues on usual Synthroid dosing Morbid Obesity: BMI 38- decreasing prednisone/HD for volume, eventual rehab and wt loss encouraged as able Pre-DM: A1c 6.1 in March and well controlled w/ SSI while inaptient with ongoing steroid use for autoimmune hepatitis/other as above BRBPR: 2nd to hemorrhoids vs fissures unable to visualize however is anal outlet. doubtful diverticulosis and given anusol suppositories starting 05/19 and has been stable since stopping DVT proph - eliquis 2.5mg BID Dispo plan is to continue HD throughout the weekend and make him hospice if still no improvement updated his in the room Admission and Anticipated Discharge Date Admission Date: April 28, 2024 Subjective patient seen and examined, SOB is improved, but his lower extremity swelling is getting worse, with blisters forming Review of Systems Review of Systems: All systems reviewed are negative, apart from the ones contained in the history. Physical Exam Physical Exam: The patient is awake, alert and oriented 3, well developed and well nourished, normocephalic and atraumatic, lying in bed and in no acute distress. HEENT--PERRL, EOMI, mucous membranes and oropharynx mildly dry Neck--supple. No JVD. No bruits. Thyroid normal, trachea midline, no adenopathy. Heart--normal S1 and S2. No murmurs, rubs or gallops. Lungs--clear bilaterally, no respiratory distress, no accessory muscle use. Abdomen--normal bowel sounds and soft. Extremities--cyanotic. pitting edema. Dermatologic--normal skin turgor, normal color, no abnormal lymph nodes, no rash. Neurologic--cranial nerves II through XII grossly intact. Rheumatologic--reduced ROM Psychiatric--normal affect. Results & Data Results & Data Vital Signs (Past 12 Hours) Vital Signs Temp Pulse Pulse Resp BP Pulse Ox O2 Del Method 06/06/24 07:30 98.6 F 82 18 94/64 L 95 Nasal Cannula 06/06/24 02:43 97.9 F 82 19 99/68 L 97 Nasal Cannula 06/05/24 23:34 81 23 96 06/05/24 22:40 97.9 F 80 20 100/69 98 Nasal Cannula O2 Flow Rate FiO2 06/06/24 07:30 2.0 06/06/24 02:43 2 06/05/24 23:34 25 06/05/24 22:40 3 PG Care Time/CCT Total # of Minutes Spent Total Time Spent with Patient: Total time spent is greater than 50% in coordination of care (as documented) at patient's floor/unit and/or counseling patient: Coding Level of Care Code 88947 SUB INP/OBS CARE 2/35MIN Diagnoses Anasarca R60.1 Acute hypoxic respiratory failure J96.01 Atrial fibrillation with rapid ventricular response I48.91 End stage renal disease on dialysis N18.6; Z99.2 Thrombocytopenia D69.6 Autoimmune hepatitis treated with steroids K75.4 PAD (peripheral artery disease) I73.9 Weakness R53.1 Time Spent (min) 35
--- NOTE | 2024-06-06 11:35 | Nephrology Progress Note ---
Date of Service June 06, 2024 Assessment & Plan (1) End stage renal disease on dialysis: Plan: Completed HD yesterday with adequate UF and clearance. Transitioning to a palliative plan of care. Prognosis is very poor. We will hold additional HD at this time. Labs will not be checked tomorrow. This is consistent with patient wishes. A family meeting is being planned for tomorrow afternoon. Medications are appropriate for kidney function. Diet changed to regular without fluid restriction at patient's request. (2) Anemia: (3) Renal cell carcinoma: (4) Atrial fibrillation: (5) Quality of life palliative care encounter: Plan: Goals of care discussed with Rodolfo and his . We reviewed end of life planning. We discussed stopping dialysis treatments. We discussed stopping blood draws and weaning off medications. Paige and his both mentioned that the palliative care team will be coordinating a family meeting on Friday to discuss the plan of care moving forward. Admission and Anticipated Discharge Date Admission Date: April 28, 2024 Subjective No acute events overnight. Rodolfo did not sleep well last night. He is very tired this AM. He tolerated HD reasonably well yesterday but dialysis in general is increasingly exhausting. He plans to rest today and was receptive of the idea of not checking labs tomorrow or planning on another dialysis treatment for now. I continued a conversation regarding end of life with Rodolfo and his . Rodolfo remains resolved to the idea of not continuing HD unless his overall condition is going to improve. However, his desire to celebrate his wedding anniversary on June 24 is the reason he is not committing to transitioning to comfort measures only now. He would like to switch to a regular diet. A family meeting is being planned for tomorrow. Review of Systems Review of Systems: All systems reviewed & are unremarkable except as noted in HPI & below Physical Exam Constitutional: well developed, + morbidly obese and + frail appearing; no acute distress Eyes: + anicteric sclerae Neck: normal visual inspection and trachea midline Respiratory: + tachypneic Cardiovascular: Rate/Rhythm: regular rate and regular rhythm Extremities: + edema and + AV fistula (thrombosed) Musculoskeletal: Extremities: no cyanosis and no clubbing Skin: no jaundice Neurologic: Motor/Sensory: no tremor and no asterixis Psychiatric: Orientation: alert and oriented x 3 Results & Data Vital Signs (Past 12 Hours) Vital Signs Temp Pulse Pulse Resp BP Pulse Ox O2 Del Method 06/06/24 08:00 87 06/06/24 07:30 37.0 C 82 18 94/64 L 95 Nasal Cannula 06/06/24 02:43 36.6 C 82 19 99/68 L 97 Nasal Cannula 06/05/24 23:34 81 23 96 O2 Flow Rate FiO2 06/06/24 08:00 06/06/24 07:30 2.0 06/06/24 02:43 2 06/05/24 23:34 25 Laboratory Results Laboratory Results - last 24 hr 06/01/24 06/05/24 06/05/24 08:56 12:26 17:01 WBC RBC Hgb Hct MCV MCH MCHC RDW Std Deviation RDW Coeff of Nick Plt Count Absolute Nucleated RBC Nucleated RBC % (auto) Sodium Potassium Chloride Carbon Dioxide Anion Gap BUN Creatinine Est Cr Clr Drug Dosing eGFR BUN/Creatinine Ratio Glucose POC Glucose 102 H 165 H Calcium Mycoplasma pneumon IgM 456 S.pneumoniae Type 1 IgG 1.1 S.pneumoniae Type 3 IgG <0.3 S.pneumoniae Type 4 IgG <0.3 S.pneumoniae Type 5 IgG 1.7 S.pneumoniae Type 8 IgG 0.6 S.pneumoniae 9 (9N) IgG <0.3 S.pneumon 12 (12F) IgG 1.3 S.pneumoniae Typ 14 IgG 0.8 S.pneumon 19 (19F) IgG 1.0 S.pneumon 23 (23F) IgG 0.8 S.pneumon 26 (6B) IgG <0.3 S.pneumon 51 (7F) IgG 9.4 S.pneumon 56 (18C) IgG 0.7 S.pneumon 68 (9V) IgG <0.3 Pneumococcal Type 2 Ab 0.3 Pneumococcal Typ 17F Ab <0.3 Pneumococcal Type 20 Ab <0.3 Pneumococcal Typ 22F Ab <0.3 Pneumococcal Type 34 Ab 2.3 Pneumococcal Type 43 Ab 0.6 Pneumococcal Type 54 Ab 1.1 Pneumococcal Type 57 Ab 2.9 Pneumococcal Type 70 Ab 3.9 06/05/24 06/06/24 20:34 07:36 WBC 9.18 RBC 3.13 L Hgb 9.2 L Hct 32.5 L MCV 103.8 H MCH 29.4 MCHC 28.3 L RDW Std Deviation 113.5 H RDW Coeff of Nick 30.5 H Plt Count 52 L Absolute Nucleated RBC 0.17 H Nucleated RBC % (auto) 1.9 Sodium 134 L Potassium 4.2 Chloride 99 Carbon Dioxide 31 Anion Gap 4 BUN 23 Creatinine 2.13 H Est Cr Clr Drug Dosing 49.1 eGFR 32.68 BUN/Creatinine Ratio 10.8 Glucose 146 H POC Glucose 101 H Calcium 8.6 Mycoplasma pneumon IgM S.pneumoniae Type 1 IgG S.pneumoniae Type 3 IgG S.pneumoniae Type 4 IgG S.pneumoniae Type 5 IgG S.pneumoniae Type 8 IgG S.pneumoniae 9 (9N) IgG S.pneumon 12 (12F) IgG S.pneumoniae Typ 14 IgG S.pneumon 19 (19F) IgG S.pneumon 23 (23F) IgG S.pneumon 26 (6B) IgG S.pneumon 51 (7F) IgG S.pneumon 56 (18C) IgG S.pneumon 68 (9V) IgG Pneumococcal Type 2 Ab Pneumococcal Typ 17F Ab Pneumococcal Type 20 Ab Pneumococcal Typ 22F Ab Pneumococcal Type 34 Ab Pneumococcal Type 43 Ab Pneumococcal Type 54 Ab Pneumococcal Type 57 Ab Pneumococcal Type 70 Ab PG Care Time/CCT Total # of Minutes Spent Total Time Spent with Patient: Total time spent is greater than 50% in coordination of care (as documented) at patient's floor/unit and/or counseling patient: Coding Level of Care Code 75278 SUB INP/OBS CARE 350MIN Diagnoses End stage renal disease on dialysis N18.6; Z99.2 Anemia D64.9 Renal cell carcinoma C64.9 Atrial fibrillation I48.91 Atrial fibrillation type: unspecified Quality of life palliative care encounter Z51.5 (4) Atrial fibrillation Atrial fibrillation type: unspecified Qualified Code(s): I48.91 - Unspecified atrial fibrillation
--- NOTE | 2024-06-07 09:49 | Nephrology Progress Note ---
Date of Service June 07, 2024 Assessment & Plan (1) End stage renal disease on dialysis: Plan: Completed last HD treatment on 06/05. Holding additional dialysis for now. Rodolfo is planning to meet with palliative care today to discuss plan of care moving forward. He is focused on comfort and end-of-life planning. He does not want to commit to hospice care/RN [facility] CARE UNIT until after June 24. He would like to celebrate his 49th wedding anniversary. We are not going to continue aggressive dialysis treatments but Rodolfo did not fully commit to stopping HD. He has been relatively anuric. Medications are appropriate for kidney function. (2) Anemia: (3) Renal cell carcinoma: (4) Atrial fibrillation: (5) Quality of life palliative care encounter: Plan: Goals of care discussed with Rodolfo and his . We reviewed end of life planning. We discussed what stopping dialysis treatments may look like. We discussed stopping blood draws and weaning off medications. Palliative care team will be coordinating a family meeting today to discuss the plan of care moving forward. Admission and Anticipated Discharge Date Admission Date: April 28, 2024 Subjective No acute events overnight. Rodolfo was seen and evaluated with his at the bedside this AM. He slept well. He feels much better this AM. Appetite improved. Denies significant dyspnea. Review of Systems Review of Systems: All systems reviewed & are unremarkable except as noted in HPI & below Physical Exam Constitutional: well developed and + frail appearing; no acute distress Eyes: + anicteric sclerae ENMT: Mouth: oral mucous membranes not dry Neck: normal visual inspection and trachea midline RIJ TDC Respiratory: + tachypneic; no respiratory distress an d no labored breathing Cardiovascular: Rate/Rhythm: regular rate Heart Sounds: normal S1 and normal S2 Extremities: + edema and + AV fistula (thrombosed) Musculoskeletal: Extremities: no cyanosis and no clubbing Skin: + turgor decreased and + ecchymosis; no jaundice Neurologic: Motor/Sensory: no tremor and no asterixis Psychiatric: Orientation: alert and oriented x 3 Results & Data Vital Signs (Past 12 Hours) Vital Signs Temp Pulse Pulse Resp BP Pulse Ox O2 Del Method 06/07/24 08:10 99 Nasal Cannula 06/07/24 07:48 36.6 C 82 18 105/69 100 Nasal Cannula 06/07/24 03:33 81 16 99 06/06/24 23:28 82 20 100 O2 Flow Rate FiO2 06/07/24 08:10 4 06/07/24 07:48 6 06/07/24 03:33 25 06/06/24 23:28 25 PG Care Time/CCT Total # of Minutes Spent Total Time Spent with Patient: Total time spent is greater than 50% in coordination of care (as documented) at patient's floor/unit and/or counseling patient: Coding Level of Care Code 37856 SUB INP/OBS CARE 2/35MIN Diagnoses End stage renal disease on dialysis N18.6; Z99.2 Anemia D64.9 Renal cell carcinoma C64.9 Atrial fibrillation I48.91 Atrial fibrillation type: unspecified Quality of life palliative care encounter Z51.5 (4) Atrial fibrillation Atrial fibrillation type: unspecified Qualified Code(s): I48.91 - Unspecified atrial fibrillation
--- NOTE | 2024-06-07 09:55 | Hospitalist Progress Note ---
Date of Service June 07, 2024 Assessment & Plan (1) Anasarca: Plan: This is a 68yo HD dependent ESRD since March 2024, afib, renal cell ca (s/p R nephrectomy for renal cell ca, on opdivo), HLD, Hypothyroidism, SARAH as well as autoimmune hepatitis w/ long standing steroids ~1yr presented for b/l leg weakness on 05/18 and found to be positive for +rhinovirus/enterovirus and also tx for PNA while inpatient and has had complicated hospital course severe fluid overload, pulmonary edema on exam, Etiology could be multifactorial, ESRD, CHFwpEF Patient was undergoing daily dialysis without much improvement, HD has been paused since 06/07 consult palliative to discuss goals of care, family to meet today by noon for goals of care Prognosis is poor (2) Acute hypoxic respiratory failure: Plan: some improvement following HD - component of volume overload/pulmonary edema - probable pneumonia - CXR film is is overall unchanged to improved from previous with bibasilar R>L opacities, R>L pleural effusion, MRSA nares negative so unlikely MRSA pna -procal significantly elevated (has never been normal this admission, can be elevated in ESRD but would not expect this much) -continue cefepime -has been on bactrim for PJP prophylaxis -Continue daily dialysis -Improving SOB and hypoxia, now on 2L of oxygen (3) Atrial fibrillation with rapid ventricular response: Plan: Presentation on admission: chronic, long-standing permanent a.fib followed by outside cardiology near [place] Early in admission had had poor rate control despite meto succ BID + cardizem CD 120mg HS. Intolerant of increase because of hypotension. Was poor candidate for amio w/ abn LFTs and autoimmune hepatitis, prior cardioversion in past not successful AV node ablation with permanent pacemaker insertion on 05/13/[address] Mitchell eventually had recurrent A-fib repeat ablation with Dr Kyle on 05/25 continue apixaban heart rate has been in 80s, telemetry has been interpreted as A-fib last few days and paced today (4) End stage renal disease on dialysis: Plan: New HD dependent since March 24/2025. Hx solitary kidney status s/p R nephrectomy in the past for renal cell ca. He had 9 days of serial HD early in stay for severe volume overload. UF has been limited by hypotension, on midodrine. Several episodes of acute pulmonary edema this admission. Will have HD several days in a row, discussed with Nephrology his lowest weight 139 kg mid Apr, now up to 146 with significantly more anasarca/LE edema bumex 4 mg po discontinued, patient not making any urine (5) Thrombocytopenia: Plan: IMPROVING, today 69, B12/folate wnl. Peripheral smear without suggestion TTP/HUS, no evidence for DIC. EBV PCR is positive s/p bone marrow biopsy 05/24, pathology pending BM chromosome analysis/flow cytometry/pathology pending path still pending AM CBC (6) Autoimmune hepatitis treated with steroids: Plan: autoimmune hepatitis diagnosed July 2023 secondary to immunotherapy for renal cell ca and has been on chronic steroids since that time --> During Mar stay was on burst for this issues as well as concern immunotherapy contributing to his thrombocytopenia hepatitis - 2nd to Opdivo? 2nd to hepatic congestion from volume overload? combination of factors? EBV IgM returned POSITIVE EBV PCR also positive indicating acute or subacute infection (or re-activation) This could be contributing to hepatitis & low platelets CMV & parvovirus titers pending HepA, HepB, and HepC ab's were NEGATIVE in 06/2023 LFTs remain mildly high despite steroids , ammonia wnl Initially was on 70mg/day weaning q7d by 10mg increments - Down to prednisone 20mg daily through 06/01 then to be 10mg x 7d - Continues w/ PJP prophy until prednisone is <20mg/day; use SS tmp/sulfa 1 tab M/W/F at HS for prophylaxis - continue for now Obtained formal GI consult to ensure nothing else is causing the liver dysfunction - they agree that it is likely due to immunotherapy/autoimmune +/- right heart failure/passive congestion (7) PAD (peripheral artery disease): Plan: biphasic waveforms on LLE proximal vessels, monophasic waveforms on distal vessels -ideally should be on antiplatelet agents and statin but both contraindicated right now due to abnormal LFTs and low platelets Consult for Dr Rajan chandler, saw 05/25 (see note) --> pt has three vessel runoff/no acute intervention planned and can have outpt f/u. --> Notify sooner of any worsening/evidence for limb threatening CLI going forward He has blue toes syndrome, now getting worse, with blisters forming - a few weeks ago had blue tip of 2nd toe that improved, recently much worse with multiple blue toes - suspect atheroembolic shower caused by most recent EP procedure Suspect he also has significant small vessel vascular disease and poor tissue perfusion related to multiple acute and chronic problems (8) Weakness: Plan: He is heavily deconditioned Multifactorial, patient has had a long hospital stay Continues with therapy while inpatient w/ plans for INTENSIVE rehab post-dc which he should get at [facility] -lumbar spine issue cannot be ruled out but less likely (no paresthesias or radicular pain of legs) Plan Stage 4 renal cell carcinoma - hx R nephrectomy, disease progression has been slow, on Opdivo followed by Dr. Grijalva at [facility]. L kidney cysts or masses on most recent imaging. 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 Could be contributing to hepatitis thrombocytopenia and weakness. Supportive care Chronic conditions/resolved conditions: Elevated troponin - peak HS trop 103 early in the admission without evidence for HENRY and suspected likely myocardial demand ischemia in setting volume overload from above/infection/pna/etc Pneumonia - completed treatment early in stay for enterovirus/rhinovirus and possible superimposed bacterial pneumonia Aortic stenosis s/p TAVR - last echo with normal valve function (04/17) Hypothyroidism: TSH wnl and continues on usual Synthroid dosing Morbid Obesity: BMI 38- decreasing prednisone/HD for volume, eventual rehab and wt loss encouraged as able Pre-DM: A1c 6.1 in March and well controlled w/ SSI while inaptient with ongoing steroid use for autoimmune hepatitis/other as above BRBPR: 2nd to hemorrhoids vs fissures unable to visualize however is anal outlet. doubtful diverticulosis and given anusol suppositories starting 05/19 and has been stable since stopping DVT proph - eliquis 2.5mg BID Dispo plan is for a family meeting by noon today, if they opt for hospice, we will make arrangements Admission and Anticipated Discharge Date Admission Date: April 28, 2024 Subjective patient seen and examined, by the bedside, patient is in high spirits, plan is for a family meeting by noon today Review of Systems Review of Systems: All systems reviewed are negative, apart from the ones contained in the history. Physical Exam Physical Exam: The patient is awake, alert and oriented 3, well developed and well nourished, normocephalic and atraumatic, lying in bed and in no acute distress. HEENT--PERRL, EOMI, mucous membranes and oropharynx mildly dry Neck--supple. No JVD. No bruits. Thyroid normal, trachea midline, no adenopathy. Heart--normal S1 and S2. No murmurs, rubs or gallops. Lungs--clear bilaterally, no respiratory distress, no accessory muscle use. Abdomen--normal bowel sounds and soft. Extremities--cyanotic. pitting edema. Dermatologic--normal skin turgor, normal color, no abnormal lymph nodes, no rash. Neurologic--cranial nerves II through XII grossly intact. Rheumatologic--reduced ROM Psychiatric--normal affect. Results & Data Results & Data Vital Signs (Past 12 Hours) Vital Signs Temp Pulse Pulse Resp BP Pulse Ox O2 Del Method 06/07/24 08:10 99 Nasal Cannula 06/07/24 07:48 97.9 F 82 18 105/69 100 Nasal Cannula 06/07/24 03:33 81 16 99 06/06/24 23:28 82 20 100 O2 Flow Rate FiO2 06/07/24 08:10 4 06/07/24 07:48 6 06/07/24 03:33 25 06/06/24 23:28 25 PG Care Time/CCT Total # of Minutes Spent Total Time Spent with Patient: Total time spent is greater than 50% in coordination of care (as documented) at patient's floor/unit and/or counseling patient: Coding Level of Care Code 01651 SUB INP/OBS CARE 2/35MIN Diagnoses Anasarca R60.1 Acute hypoxic respiratory failure J96.01 Atrial fibrillation with rapid ventricular response I48.91 End stage renal disease on dialysis N18.6; Z99.2 Thrombocytopenia D69.6 Autoimmune hepatitis treated with steroids K75.4 PAD (peripheral artery disease) I73.9 Weakness R53.1 Time Spent (min) 35
--- NOTE | 2024-06-07 14:30 | Palliative Care Progress Note ---
Date of Service June 07, 2024 Assessment & Plan (1) Palliative care by specialist: Plan: Palliative care will continue to follow for ongoing GOC discussions and family support. today GOC discussed with pt and family from 13:00 - 13:35 (2) Counseling regarding goals of care: Plan: Met again with pt at bedside. His and two daughters and son in law were present and participated in a 35 minute GOC discussion. For benefit of family, Don reveiwed/summarized previous ACP discussions held during this hospitalization. Discussed pt's chronic and debilitating health conditions, lengthy hosp italization, dependence on daily HD, and deconditioning that will make recovery an difficult uphill handy. He shared that he is acceptant of lifetime IHD dependence but not if he will not recover strength or functional independence. He shared frustration that since March his health has only deteriorated despite aggressive medical care. He stated that he is ready to "give up on futile treatments", but still would like to be with his on June 24 for their wedding anniversary. His family expressed their support of his wishes (3) Quality of life palliative care encounter: Plan: pt states that he continues to tolerate HD well and still values his current GOC. Plan Continue current level of care with HD as indicated. Pt is hopeful to remain on HD and optimize health and cognitive function through June 24 to celebrate 49y of marriage with his . He shared that after that he will not pursue any further HD and "let nature take its course". Admission and Anticipated Discharge Date Admission Date: April 28, 2024 Subjective Assessed pt at bedside, he was awake and alert and shared that he is sleeping well. He denied any dyspnea or discomfort. At bedside were his , two daughters, CK, and grand daughter. Review of Systems Review of Systems: All systems reviewed & are unremarkable except as noted in HPI & below Constitutional: + weakness, + anorexia and + weight gain Physical Exam Physical Exam: The patient is awake, alert and oriented 3, well developed and well nourished, normocephalic and atraumatic, lying in bed and in no acute distress. HEENT--PERRL, EOMI, mucous membranes and oropharynx mildly dry Neck--supple. No JVD. No bruits. Thyroid normal, trachea midline, no adenopathy. Heart--normal S1 and S2. No murmurs, rubs or gallops. Lungs--clear bilaterally, no respiratory distress, no accessory muscle use. Abdomen--normal bowel sounds and soft. Extremities--no cyanosis or clubbing. pitting edema. Dermatologic--normal skin turgor, normal color, no abnormal lymph nodes, no rash. Neurologic--no focal deficits Psychiatric--normal affect. Results & Data Vital Signs (Past 12 Hours) Vital Signs Temp Pulse Pulse Resp BP Pulse Ox O2 Del Method 06/07/24 08:10 99 Nasal Cannula 06/07/24 07:48 36.6 C 82 18 105/69 100 Nasal Cannula 06/07/24 03:33 81 16 99 O2 Flow Rate FiO2 06/07/24 08:10 4 06/07/24 07:48 6 06/07/24 03:33 [address] 04/28/24 16:47 EXAMINATION: Head CT without CLINICAL HISTORY: Weakness PRIORS: None TECHNIQUE: Contiguous axial images were obtained through the head without the use of intravenous contrast. Sagittal and coronal reformations are supplied. FINDINGS: Motion artifact degrades image quality. Moderate parenchymal volume loss noted. Quiñones-white differentiation is preserved. No edema or midline shift. No intra-axial or extra-axial hemorrhage. Ventricles are normal in size and configuration. Brainstem and cerebellum have a normal appearance. Calvarium unremarkable. Paranasal sinuses and mastoid air cells are well-pneumatized. Globes are intact. No retrobulbar abnormality. IMPRESSION: Moderate parenchymal volume loss with no CT evidence of an acute intracranial abnormality. Electronically signed by Indy 04-28-2024 6:25 PM Liver Ultrasound 05/10/24 00:00 EXAM: US liver CLINICAL HISTORY: hepatitis TECHNIQUE: Limited ultrasound of the liver and gallbladder was performed in greyscale and Doppler. Multiple images were obtained in transverse and longitudinal planes. COMPARISON: No prior studies are available for comparison. FINDINGS: Liver: Liver size: measures 17.9 cm. The liver appears enlarged in size with heterogeneous echotexture and slightly irregular borders. No evidence of focal lesions, cysts, or masses. Hepatic vasculature appears normal. Gallbladder: Gallbladder size: Gallbladder is visualized and not well distended at the time of scan with normal shape. A slight increase in gall bladder wall thickness measures 0.36 cm(which may be non-specific due to an undistended gall bladder) No gallstones or pericholecystic fluid were noted. No evidence of gallbladder wall edema or signs of acute cholecystitis. Biliary Tree: Common bile duct diameter: 0.36 cm. The common bile duct is within normal limits in caliber and not dilated. No evidence of choledocholithiasis or biliary obstruction. IMPRESSION: 1. Moderate hepatomegaly with heterogeneous parenchymal echo pattern and slightly irregular borders(parenchymal liver disease) for correlation with LFT. 2. Slight increase in gall bladder wall thickness (whoever better assesses with distended gall bladder will be better). Electronically signed by Scott Venegas 05-10-2024 02:18 AM Duplex Scan Lower Extremity Artery 05/22/24 07:00 EXAM: US arterial duplex LE LT CLINICAL HISTORY: Cold L foot, decreased pulses/cap refill TECHNIQUE: Ultrasound examination of the left lower extremity arteries was performed in real time and duplex. One or more of the following were performed- spectral analysis, resistive index, waveform analysis, and pulsed Doppler. COMPARISON: None. FINDINGS: Vessel Flow Pattern Left Peak Velocity Left (cm/sec) Common Femoral Artery (RUMPER) Tri 42 Deep Femoral Artery (DPA) MONO-BI 35 Superficial Femoral Artery (SFA) TRI 40-48 Popliteal Artery (POP A) Bi-marichuy 18 Posterior Tibial Artery (CUTTER MACHINE), proximal Bi-mono 21 PERONEAL ARTERY [place] 18 Dorsalis Pedis Artery (DPA) [place] 11.5 Multiple discrete calcific plaques were noted in the arteries. Damped monophasic waveform in the distal arteries. IMPRESSION: Multiple discrete calcific plaques were noted in the arteries and damped monophasic waveform in the distal arteries. Electronically signed by Scott Venegas 05-22-2024 08:13 AM Bone Marrow Biopsy w/ CT 05/24/24 08:00 CT guided bone marrow biopsy INDICATION: Thrombocytopenia PROCEDURE: Procedure and risks were explained. Informed consent was obtained. A final timeout was completed. The patient was placed prone in a decubitus position and the CT exam table. The right gluteal region was prepped and draped in sterile fashion. 1% lidocaine was utilized for skin anesthesia. Utilizing CT guidance, an 11-gauge bone biopsy needle was advanced into the right iliac bone. Multiple aspirates and one bone core was obtained and given to the lab. The needle was removed and Band-Aid applied. The patient tolerated the procedure well. Vital signs will be monitored postprocedure. IMPRESSION: Bone marrow biopsy as above. Performed, dictated, and signed by Venancio Mendes PA-C; to be co-signed by Dr. Alex Garcia. Electronically signed by: Alex Garcia M.D. 05/24/2024 2:28 PM Chest X-Ray 06/03/24 11:05 XR chest 1V portable CLINICAL HISTORY: follow up pulm edema COMPARISON STUDY: 05/29/2024 FINDINGS: Single view chest demonstrates some resolution of airspace opacities i n the right upper lobe. Airspace opacity in the right lung base is unchanged. New air space opacity has developed in the left lung base. Cardiomegaly, pulmonary vascular congestion, and aortic arch ectasia are once again noted. Bilateral pleural effusions are present right greater than left. Double-lumen dialysis catheter in the mid superior vena cava. Unipolar left pacemaker electrode unchanged. IMPRESSION: Right upper lobe airspace opacity less pronounced. New left basilar airspace opacity has developed. Cardiomegaly, pulmonary vascular congestion, small bilateral effusion, and right basilar infiltrate unchanged. ACT 112: Negative or not required by law. Electronically signed by: Sridevi Saldana M.D. 06/03/2024 11:51 AM Medications Administered Current Inpatient Medications Acetaminophen (Acetaminophen 325 Mg Tab) 650 mg PO Q4H PRN PRN Reason: pain/fever Stop: 07/02/24 21:07 Last Admin: 06/06/24 21:14 Dose: 650 mg Apixaban (Apixaban 2.5 Mg Tab) 2.5 mg PO BID GURU Stop: 07/02/24 23:55 Last Admin: 06/07/24 20:04 Dose: 2.5 mg Bisacodyl (Bisacodyl 5 Mg Tabec) 5 mg PO DAILY PRN PRN Reason: Constipation Stop: 07/07/24 18:16 Last Admin: 06/07/24 21:07 Dose: 5 mg Dextrose (Dextrose 50% 50 Ml Syringe) 25 - 50 ml IV UD PRN; Protocol PRN Reason: Hypoglycemia Protocol Stop: 06/30/24 08:11 Glucagon (Glucagon For Inj 1 Mg Vial) 1 mg SQ UD PRN; Protocol PRN Reason: Hypoglycemia Protocol Stop: 06/30/24 08:11 Glucose (Glucose 40% Gel 15 Gm Tube) 15 - 30 gm PO UD PRN; Protocol PRN Reason: Hypoglycemia Protocol Stop: 07/02/24 08:11 Glucose (Glucose 10 Tab/Tube) 4 - 8 tab PO UD PRN; Protocol PRN Reason: Hypoglycemia Protocol Stop: 07/02/24 08:11 Levothyroxine Sodium (Levothyroxine Sodium 200 Mcg Tablet) 200 mcg PO DAILYBB [facility] Stop: 07/02/24 06:29 Last Admin: 06/07/24 06:35 Dose: 200 mcg Melatonin (Melatonin 3 Mg Tab) 3 mg PO HS PRN PRN Reason: Insomnia Stop: 07/02/24 21:07 Last Admin: 06/06/24 21:14 Dose: 3 mg Menthol (Cough Drop (Sugar Free) Mark 24 Mark/1 Box) 1 mark BUCCAL PRN PRN PRN Reason: Sore Throat Stop: 06/30/24 15:39 Miconazole Nitrate (Miconazole Nitrate Powder 85 Gm) 1 appln EXT PRN PRN PRN Reason: Affected Skin Folds Stop: 07/08/24 10:29 Midodrine (Midodrine Hcl 10 Mg Tab) 10 mg PO TID [facility] Stop: 07/02/24 21:07 Last Admin: 06/07/24 20:04 Dose: 10 mg Miscellaneous (Carbohydrates For Hypoglycemia ) 15 - 30 gm PO UD PRN PRN Reason: Hypoglycemia Protocol Stop: 07/02/24 08:11 Ondansetron HCl (Ondansetron Inj 2 Mg/Ml 2 Ml Vial) 4 mg IV Q6H PRN PRN Reason: Nausea Stop: 07/02/24 21:07 Last Admin: 05/25/24 13:45 Dose: 4 mg Pantoprazole Sodium (Pantoprazole 40 Mg Tab) 40 mg PO QAM [facility] Stop: 07/02/24 08:59 Last Admin: 06/07/24 08:03 Dose: 40 mg Polyethylene Glycol (Polyethylene (Miralax) 17 Gm Pack) 17 gm PO DAILY PRN PRN Reason: Constipation Stop: 07/02/24 21:07 Last Admin: 06/01/24 13:19 Dose: 17 gm Prednisone (Prednisone 10 Mg Tablet) 10 mg PO DAILY [facility]; Taper Stop: 06/09/24 08:59 Last Admin: 06/07/24 08:03 Dose: 10 mg PG Care Time/CCT Total # of Minutes Spent Total Time Spent with Patient: Total time spent is greater than 50% in coordination of care (as documented) at patient's floor/unit and/or counseling patient: Advanced Care Planning 37024 Advanced Care Planning 30 Min Coding [place] [address] SUB INP/OBS CARE 04/17MIN Patient Type Established Medical Decision Making Straight Forward Diagnoses Palliative care by specialist Z51.5 Counseling regarding goals of care Z71.89 Quality of life palliative care encounter Z51.5 Additional Codes Advanced Care Planning - 29039 Advanced Care Planning 30 Min: 11599 Advanced Care Planning 30 Min ([id number])
[2024-06-08 07:17] LABS: BUN Creatinine Ratio 11.1 (10-20); Calcium 8.2 mg/dl (8.6-10.3); Potassium 3.9 mmol/L (3.5-5.1)
[2024-06-08 10:12] LABS: Albumin Level 2.4 gm/dl (3.4-5.0); Bilirubin Direct 0.8 mg/dl (0-0.2); Bilirubin,Total 1.7 mg/dl (0.2-1.0); Total Protein 4.5 gm/dl (6.0-8.3)
--- NOTE | 2024-06-08 10:34 | Palliative Care Progress Note ---
Date of Service June 08, 2024 Assessment & Plan (1) Palliative care by specialist: Plan: Palliative care will continue to follow for ongoing GOC discussions and family support. (2) Counseling regarding goals of care: Plan: Met again with pt at bedside. His was present. Reviewed previous discussions, Pt/ have no further questions/concerns at present. (3) Quality of life palliative care encounter: Plan: pt states that he continues to tolerate HD well and still values his current GOC. Plan Continue current level of care with HD as indicated. Pt is hopeful to remain on HD and optimize health and cognitive function through June 24 to celebrate 49y of marriage with his . He shared that after that he will not pursue any further HD and "let nature take its course". Palliative care will follow loosely and be available for future ACP/GOC dis cussions. At this time goals are clear. Please call with any questions or concerns regarding this consultation. Admission and Anticipated Discharge Date Admission Date: April 28, 2024 Subjective Assessed pt at bedside, he was awake and alert and denied any dyspnea or discomfort. was at bedside. Pt preparing for transport to HD this morning, will accompany him. Review of Systems Review of Systems: All systems reviewed & are unremarkable except as noted in HPI & below Constitutional: + weakness, + anorexia and + weight gain Physical Exam Physical Exam: The patient is awake, alert and oriented 3, well developed and well nourished, normocephalic and atraumatic, lying in bed and in no acute distress. HEENT--PERRL, EOMI, mucous membranes and oropharynx mildly dry Neck--supple. No JVD. No bruits. Thyroid normal, trachea midline, no adenopathy. Heart--normal S1 and S2. No murmurs, rubs or gallops. Lungs--clear bilaterally, no respiratory distress, no accessory muscle use. Abdomen--normal bowel sounds and soft. Extremities--no cyanosis or clubbing. pitting edema. Dermatologic--normal skin turgor, normal color, no abnormal lymph nodes, no rash. Neurologic--no focal deficits Psychiatric--normal affect. Results & Data Vital Signs (Past 12 Hours) Vital Signs Temp Pulse Pulse Pulse Resp BP BP 06/08/24 09:30 80 113/60 06/08/24 09:06 80 100/62 06/08/24 08:59 36.4 C L 85 06/08/24 07:44 36.5 C 82 18 94/65 L 06/08/24 03:42 77 19 06/07/24 22:56 80 20 Pulse Ox O2 Del Method O2 Flow Rate FiO2 06/08/24 09:30 06/08/24 09:06 06/08/24 08:59 06/08/24 07:44 100 Nasal Cannula 5 06/08/24 03:42 100 50 06/07/24 22:56 100 50 Laboratory Results Abnormal lab results 06/08/24 Range/Units 06:15 Sodium 133 L (136-145) mmol/L BUN 43 H D (6-23) mg/dl Creatinine 3.87 H D (0.6-1.4) mg/dl Glucose 162 H (70-99(Fasting)) mg/dl Calcium 8.2 L (8.6-10.3) mg/dl Total Bilirubin 1.7 H (0.2-1.0) mg/dl Direct Bilirubin 0.8 H (0-0.2) mg/dl AST 57 H (13-39) U/L Alkaline Phosphatase 366 H (34-104) U/L Total Protein 4.5 L (6.0-8.3) gm/dl Albumin 2.4 L (3.4-5.0) gm/dl Diagnostic Findings Head CT 04/28/24 16:47 EXAMINATION: Head CT without CLINICAL HISTORY: Weakness PRIORS: None TECHNIQUE: Contiguous axial images were obtained through the head without the use of intravenous contrast. Sagittal and coronal reformations are supplied. FINDINGS: Motion artifact degrades image quality. Moderate parenchymal volume loss noted. Quiñones-white differentiation is preserved. No edema or midline shift. No intra-axial or extra-axial hemorrhage. Ventricles are normal in size and configuration. Brainstem and cerebellum have a normal appearance. Calvarium unremarkable. Paranasal sinuses and mastoid air cells are well-pneumatized. Globes are intact. No retrobulbar abnormality. IMPRESSION: Moderate parenchymal volume loss with no CT evidence of an acute intracranial abnormality. Electronically signed by Indy 04-28-2024 6:25 PM Liver Ultrasound 05/10/24 00:00 EXAM: US liver CLINICAL HISTORY: hepatitis TECHNIQUE: Limited ultrasound of the liver and gallbladder was performed in greyscale and Doppler. Multiple images were obtained in transverse and longitudinal planes. COMPARISON: No prior studies are available for comparison. FINDINGS: Liver: Liver size: measures 17.9 cm. The liver appears enlarged in size with heterogeneous echotexture and slightly irregular borders. No evidence of focal lesions, cysts, or masses. Hepatic vasculature appears normal. Gallbladder: Gallbladder size: Gallbladder is visualized and not well distended at the time of scan with normal shape. A slight increase in gall bladder wall thickness measures 0.36 cm(which may be non-specific due to an undistended gall bladder) No gallstones or pericholecystic fluid were noted. No evidence of gallbladder wall edema or signs of acute cholecystitis. Biliary Tree: Common bile duct diameter: 0.36 cm. The common bile duct is within normal limits in caliber and not dilated. No evidence of choledocholithiasis or biliary obstruction. IMPRESSION: 1. Moderate hepatomegaly with heterogeneous parenchymal echo pattern and slightly irregular borders(parenchymal liver disease) for correlation with LFT. 2. Slight increase in gall bladder wall thickness (whoever better assesses with distended gall bladder will be better). Electronically signed by Scott Venegas 05-10-2024 02:18 AM Duplex Scan Lower Extremity Artery 05/22/24 07:00 EXAM: US arterial duplex LE LT CLINICAL HISTORY: Cold L foot, decreased pulses/cap refill TECHNIQUE: Ultrasound examination of the left lower extremity arteries was performed in real time and duplex. One or more of the following were performed- spectral analysis, resistive index, waveform analysis, and pulsed Doppler. COMPARISON: None. FINDINGS: Vessel Flow Pattern Left Peak Velocity Left (cm/sec) Common Femoral Artery (SERVICE SUPPORT REPRESENTATIVE) Tri 42 Deep Femoral Artery (DPA) MONO-BI 35 Superficial Femoral Artery (SFA) TRI 40-48 Popliteal Artery (POP A) Bi-marichuy 18 Posterior Tibial Artery (BRICK EXTRUDER OPERATOR), proximal Bi-mono 21 PERONEAL ARTERY [place] 18 Dorsalis Pedis Artery (DPA) [place] 11.5 Multiple discrete calcific plaques were noted in the arteries. Damped monophasic waveform in the distal arteries. IMPRESSION: Multiple discrete calcific plaques were noted in the arteries and damped monophasic waveform in the distal arteries. Electronically signed by Scott Venegas 05-22-2024 08:13 AM Bone Marrow Biopsy w/ CT 05/24/24 08:00 CT guided bone marrow biopsy INDICATION: Thrombocytopenia PROCEDURE: Procedure and risks were explained. Informed consent was obtained. A final timeout was completed. The patient was placed prone in a decubitus position and the CT exam table. The right gluteal region was prepped and draped in sterile fashion. 1% lidocaine was utilized for skin anesthesia. Utilizing CT guidance, an 11-gauge bone biopsy needle was advanced into the right iliac bone. Multiple aspirates and one bone core was obtained and given to the lab. The needle was removed and Band-Aid applied. The patient tolerated the procedure well. Vital signs will be monitored postprocedure. IMPRESSION: Bone marrow biopsy as above. Performed, dictated, and signed by Venancio Mendes PA-C; to be co-signed by Dr. Alex Garcia. Electronically signed by: Alex Garcia M.D. 05/24/2024 2:28 PM Chest X-Ray 06/03/24 11:05 XR chest 1V portable CLINICAL HISTORY: follow up pulm edema COMPARISON STUDY: 05/29/2024 FINDINGS: Single view chest demonstrates some resolution of airspace opacities in the right upper lobe. Airspace opacity in the right lung base is unchanged. New air space opacity has developed in the left lung base. Cardiomegaly, pulmonary vascular congestion, and aortic arch ectasia are once again noted. Bilateral pleural effusions are present right greater than left. Double-lumen dialysis catheter in the mid superior vena cava. Unipolar left pacemaker electrode unchanged. IMPRESSION: Right upper lobe airspace opacity less pronounced. New left basilar airspace opacity has developed. Cardiomegaly, pulmonary vascular congestion, small bilateral effusion, and right basilar infiltrate unchanged. ACT 112: Negative or not required by law. Electronically signed by: Sridevi Saldana M.D. 06/03/2024 11:51 AM Medications Administered Current Inpatient Medications Acetaminophen (Acetaminophen 325 Mg Tab) 650 mg PO Q4H PRN PRN Reason: pain/fever Stop: 07/02/24 21:07 Last Admin: 06/07/24 22:27 Dose: 650 mg Apixaban (Apixaban 2.5 Mg Tab) 2.5 mg PO BID GURU Stop: 07/02/24 23:55 Last Admin: 06/08/24 07:51 Dose: 2.5 mg Bisacodyl (Bisacodyl 5 Mg Tabec) 5 mg PO DAILY PRN PRN Reason: Constipation Stop: 07/07/24 18:16 Last Admin: 06/07/24 21:07 Dose: 5 mg Dextrose (Dextrose 50% 50 Ml Syringe) 25 - 50 ml IV UD PRN; Protocol PRN Reason: Hypoglycemia Protocol Stop: 06/30/24 08:11 Glucagon (Glucagon For Inj 1 Mg Vial) 1 mg SQ UD PRN; Protocol PRN Reason: Hypoglycemia Protocol Stop: 06/30/24 08:11 Glucose (Glucose 40% Gel 15 Gm Tube) 15 - 30 gm PO UD PRN; Protocol PRN Reason: Hypoglycemia Protocol Stop: 07/02/24 08:11 Glucose (Glucose 10 Tab/Tube) 4 - 8 tab PO UD PRN; Protocol PRN Reason: Hypoglycemia Protocol Stop: 07/02/24 08:11 Levothyroxine Sodium (Levothyroxine Sodium 200 Mcg Tablet) 200 mcg PO DAILYBB [facility] Stop: 07/02/24 06:29 Last Admin: 06/08/24 06:44 Dose: 200 mcg Melatonin (Melatonin 3 Mg Tab) 3 mg PO HS PRN PRN Reason: Insomnia Stop: 07/02/24 21:07 Last Admin: 06/07/24 22:27 Dose: 3 mg Menthol (Cough Drop (Sugar Free) Mark 24 Mark/1 Box) 1 mark BUCCAL PRN PRN PRN Reason: Sore Throat Stop: 06/30/24 15:39 Miconazole Nitrate (Miconazole Nitrate Powder 85 Gm) 1 appln EXT PRN PRN PRN Reason: Affected Skin Folds Stop: 07/08/24 10:29 Midodrine (Midodrine Hcl 10 Mg Tab) 10 mg PO TID [facility] Stop: 07/02/24 21:07 Last Admin: 06/08/24 07:50 Dose: 10 mg Miscellaneous (Carbohydrates For Hypoglycemia ) 15 - 30 gm PO UD PRN PRN Reason: Hypoglycemia Protocol Stop: 07/02/24 08:11 Ondansetron HCl (Ondansetron Inj 2 Mg/Ml 2 Ml Vial) 4 mg IV Q6H PRN PRN Reason: Nausea Stop: 07/02/24 21:07 Last Admin: 05/25/24 13:45 Dose: 4 mg Pantoprazole Sodium (Pantoprazole 40 Mg Tab) 40 mg PO QAM [facility] Stop: 07/02/24 08:59 Last Admin: 06/08/24 07:51 Dose: 40 mg Polyethylene Glycol (Polyethylene (Miralax) 17 Gm Pack) 17 gm PO DAILY PRN PRN Reason: Constipation Stop: 07/02/24 21:07 Last Admin: 06/01/24 13:19 Dose: 17 gm Prednisone (Prednisone 10 Mg Tablet) 10 mg PO DAILY GURU; Taper Stop: 06/09/24 08:59 Last Admin: 06/08/24 07:50 Dose: 10 mg PG Care Time/CCT Total # of Minutes Spent Total Time Spent with Patient: Total time spent is greater than 50% in coordination of care (as documented) at patient's floor/unit and/or counseling patient: C[place] [address] SUB INP/OBS CARE 04/17MIN Patient Type Established History Problem Focused Exam Problem Focused Medical Decision Making Straight Forward Diagnoses Palliative care by specialist Z51.5 Counseling regarding goals of care Z71.89 Quality of life palliative care encounter Z51.5
--- NOTE | 2024-06-08 10:48 | Nephrology Progress Note ---
Date of Service June 08, 2024 Assessment & Plan (1) End stage renal disease on dialysis: Plan: Orders for HD today entered into the EHR and reviewed with classifier. Paige is tolerating treatment relatively well. Midodrine provided pre-treatment. Additional midodrine PRN. Temp 35. BP soft but acceptable. Will continue daily evaluation for planning next HD treatment. Medications are appropriate for kidney function. (2) Anemia: (3) Renal cell carcinoma: (4) Quality of life palliative care encounter: Plan: Rodolfo would like to continue dialysis treatments for now but does not want to escalate care. Palliative care is following. Admission and Anticipated Discharge Date Admission Date: April 28, 2024 Subjective No acute events overnight. Rodolfo was seen and evaluated during hemodialysis this AM. His is at the bedside. He is tolerating treatment well. Qb at goal. Breathing comfortably. Rodolfo reports difficulty sleeping last night. He is tired this AM. Otherwise, no complaints. Review of Systems Review of Systems: All systems reviewed & are unremarkable except as noted in HPI & below Physical Exam Constitutional: well developed, + morbidly obese and + frail appearing; no acute distress Eyes: + anicteric sclerae ENMT: Mouth: + dry oral mucous membranes Neck: normal visual inspection and trachea midline Respiratory: normal respiratory effort and + cough; no respiratory distress and no labored breathing Auscultation: lungs clear to auscultation bilaterally and + crackles Cardiovascular: Rate/Rhythm: regular rate and regular rhythm Heart Sounds: normal S1 and normal S2 Extremities: + edema and + AV fistula (thrombosed) Musculoskeletal: Extremities: no cyanosis and no clubbing Skin: no jaundice Neurologic: Motor/Sensory: no tremor and no asterixis Psychiatric: Orientation: alert and oriented x 3 Results & Data Vital Signs (Past 12 Hours) Vital Signs Temp Pulse Pulse Pulse Resp BP BP 06/08/24 10:30 80 90/61 L 06/08/24 10:00 83 83/57 L 06/08/24 09:30 80 113/60 06/08/24 09:06 80 100/62 06/08/24 08:59 36.4 C L 85 06/08/24 07:44 36.5 C 82 18 94/65 L 06/08/24 03:42 77 19 06/07/24 22:56 80 20 Pulse Ox O2 Del Method O2 Flow Rate FiO2 06/08/24 10:30 06/08/24 10:00 06/08/24 09:30 06/08/24 09:06 06/08/24 08:59 06/08/24 07:44 100 Nasal Cannula 5 06/08/24 03:42 100 50 06/07/24 22:56 100 50 Laboratory Results Laboratory Results - last 24 hr 06/08/24 06/08/24 06:15 10:14 Sodium 133 L Potassium 3.9 Chloride 100 Carbon Dioxide 27 Anion Gap 6 BUN 43 H D Creatinine 3.87 H D Est Cr Clr Drug Dosing 27.0 eGFR 15.96 BUN/Creatinine Ratio 11.1 Glucose 162 H Calcium 8.2 L Total Bilirubin 1.7 H Direct Bilirubin 0.8 H AST 57 H ALT 30 Alkaline Phosphatase 366 H Total Protein 4.5 L Albumin 2.4 L Hep Bs Antigen Pending PG Care Time/CCT Total # of Minutes Spent Total Time Spent with Patient: Total time spent is greater than 50% in coordination of care (as documented) at patient's floor/unit and/or counseling patient: Coding Level of Care Code 44837 SUB INP/OBS CARE 3/50MIN Diagnoses End stage renal disease on dialysis N18.6; Z99.2 Anemia D64.9 Renal cell carcinoma C64.9 Quality of life palliative care encounter Z51.5
--- NOTE | 2024-06-08 14:34 | Hospitalist Progress Note ---
Date of Service June 08, 2024 Assessment & Plan (1) PAD (peripheral artery disease): (2) Cardiac pacemaker: (3) Atrial fibrillation: (4) End stage renal disease on dialysis: (5) S/P TAVR (transcatheter aortic valve replacement): (6) Autoimmune hepatitis treated with steroids: (7) Chronic diastolic CHF (congestive heart failure): (8) Metastatic renal cell carcinoma: (9) Hypertension: Plan 68-year-old male with past medical history of ESRD on hemodialysis Friday, chronic diastolic congestive heart failure, aortic stenosis status post TAVR, atrial fibrillation, renal cell carcinoma with right nephrectomy and subsequent metastasis to left kidney on Opdivo therapy which has been complicated by immune hepatitis requiring steroid therapy, obesity, SARAH presents to the ED with bilateral lower extremity weakness and found to be positive for rhinovirus/enterovirus and also treated for pneumonia with complicated hospital course. Patient has been seen by palliative care and decision has been made by patient to continue with dialysis until June 24, 2024 which is his 47th anniversary and then he wants to stop dialysis and go on full comfort care and his wishes to in the hospital and not at home #End-stage renal disease on hemodialysis #Acute hypoxic respiratory failure secondary to volume overload/pulmonary edema and underlying pneumonia/rhinovirus/enterovirus infection #Acute on chronic diastolic congestive heart failure with preserved ejection fraction Patient was treated for pneumonia during hospital stay Nephrology is following the patient and he received dialysis today Plan is for him to get dialysis until June 24, 2024 at which point he will transition to comfort measures Continue oxygen as needed Palliative care team is following the patient #Atrial fibrillation chronic, long-standing permanent a.fib followed by outside cardiology near [place] Early in admission had had poor rate control despite meto succ BID + cardizem CD 120mg HS. Intolerant of increase because of hypotension. Was poor candidate for amio w/ abn LFTs and autoimmune hepatitis, prior cardioversion in past not successful AV node ablation with permanent pacemaker insertion on 05/13/[address] Mitchell eventually had recurrent A-fib repeat ablation with Dr Kyle on 05/25/24 He is on anticoagulation with apixaban 2.5 mg p.o. twice daily #Autoimmune hepatitis #Thrombocytopenia #Chronic anemia, likely anemia of chronic kidney disease Patient is on a steroid taper He is currently on prednisone 10 mg daily until 06/09/2024 at which point he stops taper He was initially on PJP prophylaxis which has been discontinued since he is currently on prednisone less than 20 mg/day Patient underwent bone marrow biopsy for anemia and thrombocytopenia and biopsy from 05/24/2024 shows normocellular marrow with trilineage hematopoiesis, erythroid hyperplasia and some dyserythropoiesis, decreased iron stores. Dyserythropoiesis does not meet the criteria for diagnosis of MDS at this point. #Peripheral arterial disease Patient has poor circulation with gangrenous toes He wants to continue dialysis and then switch to comfort measures and at this point does not wish for any further interventions #Hypothyroidism Continue levothyroxine 200 mcg p.o. daily CODE STATUS: DNR/DNI: Palliative care team following patient. No escalation of care at this point DVT prophylaxis: Patient on apixaban Care plan discussed with patient, nursing staff, palliative care team and updated at bedside Admission and Anticipated Discharge Date Admission Date: April 28, 2024 Subjective Patient seen and examined at bedside Patient smiling, denies any chest pain or shortness of breath Patient and informed me that they are going to continue dialysis treatments as needed until June 24, 2024 which is their 47 anniversary and after that patient plans on stopping dialysis and going full comfort care. Patient does not wish to go home or to a facility and has wishes to in the hospital after he celebrates his 47 anniversary Physical Exam Physical Exam: General: No acute distress Psych: Awake and alert, oriented to place and person HEENT: Anicteric sclera, moist oral mucosa CVS: Regular rate and rhythm Lungs: Bilateral air entry, no wheezing noted Abdomen: Soft, nontender, no rebound, no guarding Ext: Lower extremity edema noted. Cyanotic toes noted with skin discoloration and ulcerations Results & Data Results & Data Vital Signs (Past 12 Hours) Vital Signs Temp Pulse Pulse Pulse Resp BP BP 06/08/24 13:20 36.4 C L 104 H 102/61 06/08/24 13:00 104 H 104/68 06/08/24 12:30 80 90/53 L 06/08/24 12:00 79 86/62 L 06/08/24 11:30 79 93/57 L 06/08/24 11:00 80 88/53 L 06/08/24 10:30 80 90/61 L 06/08/24 10:00 83 83/57 L 06/08/24 09:30 80 113/60 06/08/24 09:06 80 100/62 06/08/24 08:59 36.4 C L 85 06/08/24 07:44 36.5 C 82 18 94/65 L 06/08/24 03:42 77 19 Pulse Ox O2 Del Method O2 Flow Rate FiO2 06/08/24 13:20 06/08/24 13:00 06/08/24 12:30 06/08/24 12:00 06/08/24 11:30 06/08/24 11:00 06/08/24 10:30 06/08/24 10:00 06/08/24 09:30 06/08/24 09:06 06/08/24 08:59 06/08/24 07:44 100 Nasal Cannula 5 06/08/24 03:42 100 50 Laboratory Results Laboratory Results - last 24 hr 06/03/24 06/08/24 06/08/24 23:00 06:15 10:14 Sodium 133 L Potassium 3.9 Chloride 100 Carbon Dioxide 27 Anion Gap 6 BUN 43 H D Creatinine 3.87 H D Est Cr Clr Drug Dosing 27.0 eGFR 15.96 BUN/Creatinine Ratio 11.1 Glucose 162 H Calcium 8.2 L Total Bilirubin 1.7 H Direct Bilirubin 0.8 H AST 57 H ALT 30 Alkaline Phosphatase 366 H Total Protein 4.5 L Albumin 2.4 L Hep Bs Antigen Negative Urine Legionella Ag SEE NOTE PG Care Time/CCT Total # of Minutes Spent Total Time Spent with Patient: Total time spent is greater than 50% in coordination of care (as documented) at patient's floor/unit and/or counseling patient: Coding Level of Care Code 62852 SUB INP/OBS CARE 2/35MIN Diagnoses PAD (peripheral artery disease) I73.9 Cardiac pacemaker Z95.0 Atrial fibrillation I48.91 Atrial fibrillation type: unspecified End stage renal disease on dialysis N18.6; Z99.2 S/P TAVR (transcatheter aortic valve replacement) Z95.2 Autoimmune hepatitis treated with steroids K75.4 Chronic diastolic CHF (congestive heart failure) I50.32 Metastatic renal cell carcinoma C64.9 Hypertension I10 Time Spent (min) 35 (3) Atrial fibrillation Atrial fibrillation type: unspecified Qualified Code(s): I48.91 - Unspecified atrial fibrillation
[2024-06-08] MEDS: ALBUTEROL HFA 8 GM INHALER INH PRN (23:35)
--- NOTE | 2024-06-09 10:23 | Hospitalist Progress Note ---
Date of Service June 09, 2024 Assessment & Plan (1) PAD (peripheral artery disease): (2) Cardiac pacemaker: (3) Atrial fibrillation: (4) End stage renal disease on dialysis: (5) S/P TAVR (transcatheter aortic valve replacement): (6) Autoimmune hepatitis treated with steroids: (7) Chronic diastolic CHF (congestive heart failure): (8) Metastatic renal cell carcinoma: (9) Hypertension: Plan 68-year-old male with past medical history of ESRD on hemodialysis Friday, chronic diastolic congestive heart failure, aortic stenosis status post TAVR, atrial fibrillation, renal cell carcinoma with right nephrectomy and subsequent metastasis to left kidney on Opdivo therapy which has been complicated by immune hepatitis requiring steroid therapy, obesity, SARAH presents to the ED with bilateral lower extremity weakness and found to be positive for rhinovirus/enterovirus and also treated for pneumonia with complicated hospital course. Patient has been seen by palliative care and decision has been made by patient to continue with dialysis until June 24, 2024 which is his 49 anniversary and then he wants to stop dialysis and go on full comfort care and his wishes to in the hospital and not at home #End-stage renal disease on hemodialysis #Acute hypoxic respiratory failure secondary to volume overload/pulmonary edema and underlying pneumonia/rhinovirus/enterovirus infection #Acute on chronic diastolic congestive heart failure with preserved ejection fraction Patient was treated for pneumonia during hospital stay Nephrology is following the patient for dialysis Plan is for him to get dialysis until June 24, 2024 at which point he will transition to comfort measures Continue oxygen as needed Palliative care team is following the patient #Atrial fibrillation chronic, long-standing permanent a.fib followed by outside cardiology near [place] Early in admission had had poor rate control despite meto succ BID + cardizem CD 120mg HS. Intolerant of increase because of hypotension. Was poor candidate for amio w/ abn LFTs and autoimmune hepatitis, prior cardioversion in past not successful AV node ablation with permanent pacemaker insertion on 05/13/[address] Mitchell eventually had recurrent A-fib repeat ablation with Dr Kyle on 05/25/24 He is on anticoagulation with apixaban 2.5 mg p.o. twice daily #Autoimmune hepatitis #Thrombocytopenia #Chronic anemia, likely anemia of chronic kidney disease Patient is on a steroid taper He is currently on prednisone 10 mg daily until 06/09/2024 at which point he stops taper He was initially on PJP prophylaxis which has been discontinued since he is currently on prednisone less than 20 mg/day Patient underwent bone marrow biopsy for anemia and thrombocytopenia and biopsy from 05/24/2024 shows normocellular marrow with trilineage hematopoiesis, erythroid hyperplasia and some dyserythropoiesis, decreased iron stores. Dyserythropoiesis does not meet the criteria for diagnosis of MDS at this point. #Peripheral arterial disease Patient has poor circulation with gangrenous toes He wants to continue dialysis and then switch to comfort measures and at this point does not wish for any further interventions #Hypothyroidism Continue levothyroxine 200 mcg p.o. daily CODE STATUS: DNR/DNI: Palliative care team following patient. No escalation of care at this point DVT prophylaxis: Patient on apixaban Care plan discussed with patient, nursing staff and updated at bedside Admission and Anticipated Discharge Date Admission Date: April 28, 2024 Subjective Patient seen and examined at bedside No new complaints He does not wish to go home or to SNF and wishes to pass away in the hospital He is aware that his prognosis is very poor Physical Exam Physical Exam: General: No acute distress Psych: Awake and alert, oriented to place and person HEENT: Anicteric sclera, moist oral mucosa CVS: Regular rate and rhythm, left sided pacemaker in place Lungs: Bilateral air entry, no wheezing noted Abdomen: Soft, nontender, no rebound, no guarding Ext: Lower extremity edema noted. Cyanotic toes noted with skin discoloration and ulcerations Results & Data Results & Data Vital Signs (Past 12 Hours) Vital Signs Temp Pulse Pulse Pulse Pulse Resp BP 06/09/24 09:37 80 20 06/09/24 08:00 06/09/24 07:41 36.6 C 86 20 100/68 06/09/24 02:40 14 06/08/24 23:38 78 18 06/08/24 23:38 78 22 Pulse Ox O2 Del Method O2 Flow Rate FiO2 06/09/24 09:37 98 Nasal Cannula 6 06/09/24 08:00 Nasal Cannula 6 06/09/24 07:41 98 Room Air 06/09/24 02:40 50 06/08/24 23:38 96 Oxymask 06/08/24 23:38 98 50 PG Care Time/CCT Total # of Minutes Spent Total Time Spent with Patient: Total time spent is greater than 50% in coordination of care (as documented) at patient's floor/unit and/or counseling patient: Coding Level of Care Code 58613 SUB INP/OBS CARE Diagnoses PAD (peripheral artery disease) I73.9 Cardiac pacemaker Z95.0 Atrial fibrillation I48.91 Atrial fibrillation type: unspecified End stage renal disease on dialysis N18.6; Z99.2 S/P TAVR (transcatheter aortic valve replacement) Z95.2 Autoimmune hepatitis treated with steroids K75.4 Chronic diastolic CHF (congestive heart failure) I50.32 Metastatic renal cell carcinoma C64.9 Hypertension I10 (3) Atrial fibrillation Atrial fibrillation type: unspecified Qualified Code(s): I48.91 - Unspecified atrial fibrillation
--- NOTE | 2024-06-09 10:26 | Nephrology Progress Note ---
Date of Service June 09, 2024 Assessment & Plan (1) End stage renal disease on dialysis: Plan: Anticipate next HD treatment tomorrow. Midodrine provided pre-treatment. Medications are appropriate for kidney function. (2) Anemia: (3) Renal cell carcinoma: (4) Quality of life palliative care encounter: Plan: Rodolfo would like to continue dialysis treatments for now but does not want to escalate care. Palliative care is following. Unfortunately, not improving with current therapy and prognosis is overall very poor. Admission and Anticipated Discharge Date Admission Date: April 28, 2024 Subjective No acute events overnight. Rodolfo was seen and evaluated with his at the bedside this AM. He completed HD yesterday without complications. Net UF 2.3 L. He continues to deny shortness of breath. He does report increased phlegm in his throat. He is using suctioning to clear secretions which helps. No fevers or chills. He continues to deny pain. He remains receptive of continuing dialysis treatments. Rodolfo states that dialysis does not bother him. He remains frustrated that his strength is poor and he is unable to transfer or spend time out of bed. Review of Systems Review of Systems: All systems reviewed & are unremarkable except as noted in HPI & below Physical Exam Constitutional: well developed, + morbidly obese and + frail appearing; no acute distress Eyes: + conjunctival abnormality and + anicter ic sclerae; no scleral abnormality and no corneal abnormality ENMT: Mouth: + dry oral mucous membranes Neck: normal visual inspection and trachea midline Respiratory: normal respiratory effort, + cough and + tachypneic; no respiratory distress and no labored breathing Auscultation: lungs clear to auscultation bilaterally and + crackles Cardiovascular: Rate/Rhythm: regular rate, regular rhythm, + tachycardic and + irregularly irregular Heart Sounds: normal S1 and normal S2 Extremities: + edema and + AV fistula (thrombosed) Musculoskeletal: Extremities: no cyanosis and no clubbing Skin: + turgor decreased and + ecchymosis; + a bnormal turgor, no lesions, no jaundice and no pallor Neurologic: Motor/Sensory: no tremor and no asterixis Psychiatric: Orientation: alert and oriented x 3 Results & Data Vital Signs (Past 12 Hours) Vital Signs Temp Pulse Pulse Pulse Pulse Resp BP 06/09/24 09:37 80 20 06/09/24 08:00 06/09/24 07:41 36.6 C 86 20 100/68 06/09/24 02:40 14 06/08/24 23:38 78 18 06/08/24 23:38 78 22 Pulse Ox O2 Del Method O2 Flow Rate FiO2 06/09/24 09:37 98 Nasal Cannula 6 06/09/24 08:00 Nasal Cannula 6 06/09/24 07:41 98 Room Air 06/09/24 02:40 50 06/08/24 23:38 96 Oxymask 06/08/24 23:38 98 50 Laboratory Results Laboratory Results - last 24 hr 06/03/24 06/08/24 23:00 10:14 Hep Bs Antigen Negative Urine Legionella Ag SEE NOTE PG Care Time/CCT Total # of Minutes Spent Total Time Spent with Patient: Total time spent is greater than 50% in coordination of care (as documented) at patient's floor/unit and/or counseling patient: Coding Level of Care Code 31154 SUB INP/OBS CARE 3/50MIN Diagnoses End stage renal disease on dialysis N18.6; Z99.2 Anemia D64.9 Renal cell carcinoma C64.9 Quality of life palliative care encounter Z51.5
[2024-06-10 07:28] LABS: Albumin Level 2.4 gm/dl (3.4-5.0); BUN Creatinine Ratio 10.2 (10-20); Creatinine Clr Calc Pharmacy 26.6 ml/min; Phosphorus 4.9 mg/dl (2.5-4.9)
--- NOTE | 2024-06-10 10:33 | Nephrology Progress Note ---
Date of Service June 10, 2024 Assessment & Plan (1) End stage renal disease on dialysis: Plan: Orders for HD today entered into the EHR and reviewed with the child nurse. Midodrine provided pre-treatment. Medications are appropriate for kidney function. Tolerating HD well. Next treatment tomorrow versus Friday. I will evaluate tomorrow AM. (2) Anemia: (3) Renal cell carcinoma: (4) Quality of life palliative care encounter: Plan: Rodolfo would like to continue dialysis treatments for now but does not want to escalate care. Palliative care is following. Unfortunately, not improving with current therapy and prognosis is overall very poor. He and his continue end of life discussions. No plan for discharge to a SNF at this time. Admission and Anticipated Discharge Date Admission Date: April 28, 2024 Subjective No acute events overnight. Rodolfo was seen and evaluated during hemodialysis this AM. He denies any complaints. He slept well last night. He is breathing comfortably. He continues to report secretions and mild congestion in his chest. His nose is dry from nasal canula oxygen. He denies pain. Edema is stable. No fevers or chills. BP low but asymptomatic. Review of Systems 2 Review of Systems: All systems reviewed & are unremarkable except as noted in HPI & below Physical Exam Constitutional: + frail appearing; no acute distress Eyes: + anicteric sclerae ENMT: Mouth: + dry oral mucous membranes Neck: normal visual inspection and trachea midline Respiratory: normal respiratory effort; no labored breathing Auscultation: lungs clear to auscultation bilaterally (anteriorly) Cardiovascular: Rate/Rhythm: regular rate and regular rhythm Heart Sounds: normal S1 and normal S2 Extremities: + edema Musculoskeletal: Extremities: no cyanosis and no clubbing Skin: no jaundice Neurologic: Motor/Sensory: no tremor and no asterixis Psychiatric: Orientation: alert and oriented x 3 Results & Data Vital Signs (Past 12 Hours) Vital Signs Temp Pulse Pulse Resp BP Pulse Ox O2 Del Method 06/10/24 09:49 Nasal Cannula 06/10/24 08:26 36.7 C 85 18 92/60 L 99 Nasal Cannula 06/10/24 03:53 18 06/09/24 23:14 Nasal Cannula 06/09/24 23:10 86 16 99 O2 Flow Rate FiO2 06/10/24 09:49 6 06/10/24 08:26 4 06/10/24 03:53 30 03/19/25 23:14 6 06/09/24 23:10 30 Laboratory Results Laboratory Results - last 24 hr 06/10/24 06:11 Sodium 134 L Potassium 4.0 Chloride 99 Carbon Dioxide 27 Anion Gap 8 BUN 40 H Creatinine 3.93 H Est Cr Clr Drug Dosing 26.6 eGFR 15.67 BUN/Creatinine Ratio 10.2 Glucose 144 H Calcium 8.0 L Phosphorus 4.9 Albumin 2.4 L PG Care Time/CCT Total # of Minutes Spent Total Time Spent with Patient: Total time spent is greater than 50% in coordination of care (as documented) at patient's floor/unit and/or counseling patient: Coding Level of Care Code 04916 SUB INP/OBS CARE 3/50MIN Diagnoses End stage renal disease on dialysis N18.6; Z99.2 Anemia D64.9 Renal cell carcinoma C64.9 Quality of life palliative care encounter Z51.5
--- NOTE | 2024-06-10 12:58 | Hospitalist Progress Note ---
Date of Service June 10, 2024 Assessment & Plan (1) PAD (peripheral artery disease): (2) Cardiac pacemaker: (3) Atrial fibrillation: (4) End stage renal disease on dialysis: (5) S/P TAVR (transcatheter aortic valve replacement): (6) Autoimmune hepatitis treated with steroids: (7) Chronic diastolic CHF (congestive heart failure): (8) Metastatic renal cell carcinoma: (9) Hypertension: Plan 68-year-old male with past medical history of ESRD on hemodialysis Friday, chronic diastolic congestive heart failure, aortic stenosis status post TAVR, atrial fibrillation, renal cell carcinoma with right nephrectomy and subsequent metastasis to left kidney on Opdivo therapy which has been complicated by immune hepatitis requiring steroid therapy, obesity, SARAH presents to the ED with bilateral lower extremity weakness and found to be positive for rhinovirus/enterovirus and also treated for pneumonia with complicated hospital course. Patient has been seen by palliative care and decision has been made by patient to continue with dialysis until June 24, 2024 which is his 47th anniversary and then he wants to stop dialysis and go on full comfort care and his wishes to in the hospital and not at home #End-stage renal disease on hemodialysis #Acute hypoxic respiratory failure secondary to volume overload/pulmonary edema and underlying pneumonia/rhinovirus/enterovirus infection #Acute on chronic diastolic congestive heart failure with preserved ejection fraction Patient was treated for pneumonia during hospital stay Nephrology is following the patient for dialysis Plan is for him to get dialysis until June 24, 2024 at which point he will transition to comfort measures Continue oxygen as needed Palliative care team is following the patient #Atrial fibrillation chronic, long-standing permanent a.fib followed by outside cardiology near [place] Early in admission had had poor rate control despite meto succ BID + cardizem CD 120mg HS. Intolerant of increase because of hypotension. Was poor candidate for amio w/ abn LFTs and autoimmune hepatitis, prior cardioversion in past not successful AV node ablation with permanent pacemaker insertion on 05/13/[address] Mitchell eventually had recurrent A-fib repeat ablation with Dr Kyle on 05/25/24 He is on anticoagulation with apixaban 2.5 mg p.o. twice daily #Autoimmune hepatitis #Thrombocytopenia #Chronic anemia, likely anemia of chronic kidney disease Patient is on a steroid taper He is currently on prednisone 10 mg daily until 06/09/2024 at which point he stops taper He was initially on PJP prophylaxis which has been discontinued since he is currently on prednisone less than 20 mg/day Patient underwent bone marrow biopsy for anemia and thrombocytopenia and biopsy from 05/24/2024 shows normocellular marrow with trilineage hematopoiesis, erythroid hyperplasia and some dyserythropoiesis, decreased iron stores. Dyserythropoiesis does not meet the criteria for diagnosis of MDS at this point. #Peripheral arterial disease Patient has poor circulation with gangrenous toes He wants to continue dialysis and then switch to comfort measures and at this point does not wish for any further interventions #Hypothyroidism Continue levothyroxine 200 mcg p.o. daily CODE STATUS: DNR/DNI: Palliative care team following patient. No escalation of care at this point. DVT prophylaxis: Patient on apixaban Care plan discussed with patient, nursing staff and updated at bedside Admission and Anticipated Discharge Date Admission Date: April 28, 2024 Subjective Patient seen and examined in dialysis He is currently getting hemodialysis Plan is also for him to get ultrafiltration tomorrow Denies any new complaints Smiling Physical Exam Physical Exam: General: No acute distress Psych: Awake and alert, oriented to place and person HEENT: Anicteric sclera, moist oral mucosa CVS: Regular rate and rhythm, left sided pacemaker in place Lungs: Bilateral air entry, no wheezing noted Abdomen: Soft, nontender, no rebound, no guarding Ext: Lower extremity edema noted. Cyanotic toes noted with skin discoloration and ulcerations Results & Data Results & Data Vital Signs (Past 12 Hours) Vital Signs Temp Pulse Pulse Pulse Resp BP BP 06/10/24 12:30 80 100/60 06/10/24 12:00 61 95/59 L 06/10/24 11:30 61 84/61 L 06/10/24 11:00 74 125/53 L 06/10/24 10:30 64 98/64 L 06/10/24 10:00 63 97/65 L 06/10/24 09:49 06/10/24 09:30 80 101/74 06/10/24 09:01 80 118/73 06/10/24 08:55 36.5 C 80 06/10/24 08:26 36.7 C 85 18 92/60 L 06/10/24 03:53 18 Pulse Ox O2 Del Method O2 Flow Rate FiO2 06/10/24 12:30 06/10/24 12:00 06/10/24 11:30 06/10/24 11:00 06/10/24 10:30 06/10/24 10:00 06/10/24 09:49 Nasal Cannula 6 06/10/24 09:30 06/10/24 09:01 06/10/24 08:55 06/10/24 08:26 99 Nasal Cannula 4 06/10/24 03:53 30 Laboratory Results Laboratory Results - last 24 hr 06/10/24 06:11 Sodium 134 L Potassium 4.0 Chloride 99 Carbon Dioxide 27 Anion Gap 8 BUN 40 H Creatinine 3.93 H Est Cr Clr Drug Dosing 26.6 eGFR 15.67 BUN/Creatinine Ratio 10.2 Glucose 144 H Calcium 8.0 L Phosphorus 4.9 Albumin 2.4 L PG Care Time/CCT Total # of Minutes Spent Total Time Spent with Patient: Total time spent is greater than 50% in coordination of care (as documented) at patient's floor/unit and/or counseling patient: Coding Level of Care Code 41992 SUB INP/OBS CARE 04/17MIN Diagnoses PAD (peripheral artery disease) I73.9 Cardiac pacemaker Z95.0 Atrial fibrillation I48.91 Atrial fibrillation type: unspecified End stage renal disease on dialysis N18.6; Z99.2 S/P TAVR (transcatheter aortic valve replacement) Z95.2 Autoimmune hepatitis treated with steroids K75.4 Chronic diastolic CHF (congestive heart failure) I50.32 Metastatic renal cell carcinoma C64.9 Hypertension I10 (3) Atrial fibrillation Atrial fibrillation type: unspecified Qualified Code(s): I48.91 - Unspecified atrial fibrillation
[2024-06-11 07:12] LABS: BUN Creatinine Ratio 9.1 (10-20); Calcium 7.8 mg/dl (8.6-10.3); Creatinine Clr Calc Pharmacy 33.9 ml/min; Potassium 3.8 mmol/L (3.5-5.1)
--- NOTE | 2024-06-11 10:52 | Nephrology Progress Note ---
Date of Service June 11, 2024 Assessment & Plan (1) End stage renal disease on dialysis: Plan: Orders for HD today entered into the EHR and reviewed with the ruffling hemmer automatic. Midodrine provided pre-treatment. Medications are appropriate for kidney function. Tolerating HD well. Paige continues conversations regarding goals of care and plans for continuing HD moving forward. Unfortunately, overall no improvement with current medical therapies. Prognosis is very poor. He would like to wait until after June 24 before committing to [facility]. (2) Anemia: (3) Renal cell carcinoma: (4) Quality of life palliative care encounter: Plan: Rodolfo would like to continue dialysis treatments for now but does not want to escalate care. Palliative care is following. Unfortunately, not improving with current therapy and prognosis is overall very poor. He and his continue end of life discussions. No plan for discharge to a SNF at this time. Admission and Anticipated Discharge Date Admission Date: April 28, 2024 Subjective No acute events overnight. Rodolfo was seen and evaluated during HD this AM. He is tolerating treatment well. He continues to feel reasonably well. He is notably weak and reports very poor activity tolerance. He is enjoying spending time with friends and family but continues to discuss end-of-life. Thankfully, he denies pain or dyspnea. Rodolfo plans to complete HD today and discuss his status and plan of care moving forward with the palliative care and hospitalist team next week. Review of Systems Review of Systems: All systems reviewed & are unremarkable except as noted in HPI & below Physical Exam Constitutional: + frail appearing; no acute distress Eyes: + anicteric sclerae ENMT: Mouth: + dry oral mucous membranes Neck: normal visual inspection and trachea midline Respiratory: normal respiratory effort; no respiratory distress and no labored breathing Auscultation: lungs clear to auscultation bilaterally (anteriorly) and + crackles Cardiovascular: Rate/Rhythm: regular rate and regular rhythm Heart Sounds: normal S1 and normal S2 Extremities: + edema and + AV fistula (thrombosed) Musculoskeletal: Extremities: no cyanosis and no clubbing Skin: no jaundice and no pallor Neurologic: Motor/Sensory: no tremor and no asterixis Psychiatric: Orientation: alert and oriented x 3 Results & Data Vital Signs (Past 12 Hours) Vital Signs Temp Pulse Pulse Pulse Pulse Pulse Pulse 06/11/24 10:30 79 06/11/24 10:00 83 06/11/24 09:30 79 03/21/25 09:28 73 06/11/24 09:20 36.8 C 80 85 78 80 80 06/11/24 08:42 80 06/11/24 08:10 36.5 C 80 06/11/24 07:32 06/11/24 02:21 85 06/10/24 23:00 83 Pulse Resp BP BP Pulse Ox O2 Del Method O2 Flow Rate 06/11/24 10:30 98/68 L 06/11/24 10:00 99/68 L 06/11/24 09:30 105/72 06/11/24 09:28 112/73 06/11/24 09:20 85 06/11/24 08:42 16 99 Nasal Cannula 8 06/11/24 08:10 18 100/68 97 Nasal Cannula 8 06/11/24 07:32 Nasal Cannula 8 06/11/24 02:21 18 98 06/10/24 23:00 20 98 FiO2 06/11/24 10:30 06/11/24 10:00 06/11/24 09:30 06/11/24 09:28 06/11/24 09:20 06/11/24 08:42 06/11/24 08:10 06/11/24 07:32 06/11/24 02:21 30 06/10/24 23:00 30 Laboratory Results Laboratory Results - last 24 hr 06/11/24 06:04 Sodium 135 L Potassium 3.8 Chloride 100 Carbon Dioxide 28 Anion Gap 7 BUN 28 H Creatinine 3.09 H D Est Cr Clr Drug Dosing 33.9 eGFR 20.91 BUN/Creatinine Ratio 9.1 L Glucose 148 H Calcium 7.8 L PG Care Time/CCT Total # of Minutes Spent Total Time Spent with Patient: Total time spent is greater than 50% in coordination of care (as documented) at patient's floor/unit and/or counseling patient: Coding Level of Care Code 97642 SUB INP/OBS CARE 3/50MIN Diagnoses End stage renal disease on dialysis N18.6; Z99.2 Anemia D64.9 Renal cell carcinoma C64.9 Quality of life palliative care encounter Z51.5
--- NOTE | 2024-06-11 11:31 | Hospitalist Progress Note ---
Date of Service June 11, 2024 Assessment & Plan (1) PAD (peripheral artery disease): (2) Cardiac pacemaker: (3) Atrial fibrillation: (4) End stage renal disease on dialysis: (5) S/P TAVR (transcatheter aortic valve replacement): (6) Autoimmune hepatitis treated with steroids: (7) Chronic diastolic CHF (congestive heart failure): (8) Metastatic renal cell carcinoma: (9) Hypertension: Plan 68-year-old male with past medical history of ESRD on hemodialysis Friday, chronic diastolic congestive heart failure, aortic stenosis status post TAVR, atrial fibrillation, renal cell carcinoma with right nephrectomy and subsequent metastasis to left kidney on Opdivo therapy which has been complicated by immune hepatitis requiring steroid therapy, obesity, SARAH presents to the ED with bilateral lower extremity weakness and found to be positive for rhinovirus/enterovirus and also treated for pneumonia with complicated hospital course. Patient has been seen by palliative care and decision has been made by patient to continue with dialysis until June 24, 2024 which is his 49 anniversary and then he wants to stop dialysis and go on full comfort care and his wishes to in the hospital and not at home #End-stage renal disease on hemodialysis #Acute hypoxic respiratory failure secondary to volume overload/pulmonary edema and underlying pneumonia/rhinovirus/enterovirus infection #Acute on chronic diastolic congestive heart failure with preserved ejection fraction Patient was treated for pneumonia during hospital stay Nephrology is following the patient for dialysis: He received dialysis yesterday and is getting ultrafiltration today for fluid overload Plan is for him to get dialysis until June 24, 2024 at which point he will transition to comfort measures Continue oxygen as needed Palliative care team is following the patient #Atrial fibrillation chronic, long-standing permanent a.fib followed by outside cardiology near [place] Early in admission had had poor rate control despite meto succ BID + cardizem CD 120mg HS. Intolerant of increase because of hypotension. Was poor candidate for amio w/ abn LFTs and autoimmune hepatitis, prior cardioversion in past not successful AV node ablation with permanent pacemaker insertion on 05/13/[address] Mitchell eventually had recurrent A-fib repeat ablation with Dr Kyle on 05/25/24 He is on anticoagulation with apixaban 2.5 mg p.o. twice daily #Autoimmune hepatitis #Thrombocytopenia #Chronic anemia, likely anemia of chronic kidney disease Patient is on a steroid taper He is currently on prednisone 10 mg daily until 06/09/2024 at which point he stops taper He was initially on PJP prophylaxis which has been discontinued since he is currently on prednisone less than 20 mg/day Patient underwent bone marrow biopsy for anemia and thrombocytopenia and biopsy from 05/24/2024 shows normocellular marrow with trilineage hematopoiesis, erythroid hyperplasia and some dyserythropoiesis, decreased iron stores. Dyserythropoiesis does not meet the criteria for diagnosis of MDS at this point. #Peripheral arterial disease Patient has poor circulation with gangrenous toes He wants to continue dialysis and then switch to comfort measures and at this point does not wish for any further interventions #Hypothyroidism Continue levothyroxine 200 mcg p.o. daily CODE STATUS: DNR/DNI: Palliative care team following patient. No escalation of care at this point. DVT prophylaxis: Patient on apixaban Care plan discussed with patient, nursing staff and updated at bedside Admission and Anticipated Discharge Date Admission Date: April 28, 2024 Subjective Patient seen and examined in dialysis He was up to 8 L by nasal cannula for oxygen requirements with increasing shortness of breath and hence getting ultrafiltration today for fluid removal Patient states he feels much better since initiating ultrafiltration today He denies any chest pain Physical Exam Physical Exam: General: No acute distress Psych: Awake and alert, oriented to place and person HEENT: Anicteric sclera, moist oral mucosa CVS: Regular rate and rhythm, left sided pacemaker in place Lungs: Bilateral air entry, no wheezing noted Abdomen: Soft, nontender, no rebound, no guarding Ext: Lower extremity edema noted. Cyanotic toes noted with skin discoloration and ulcerations Results & Data Results & Data Vital Signs (Past 12 Hours) Vital Signs Temp Pulse Pulse Pulse Pulse Pulse Pulse 06/11/24 11:00 81 06/11/24 10:30 79 06/11/24 10:00 83 06/11/24 09:30 79 06/11/24 09:28 73 06/11/24 09:20 36.8 C 80 85 78 80 80 06/11/24 08:42 80 06/11/24 08:10 36.5 C 80 06/11/24 07:32 06/11/24 02:21 85 Pulse Resp BP BP Pulse Ox O2 Del Method O2 Flow Rate 06/11/24 11:00 94/61 L 06/11/24 10:30 98/68 L 06/11/24 10:00 99/68 L 06/11/24 09:30 105/72 06/11/24 09:28 112/73 06/11/24 09:20 85 06/11/24 08:42 16 99 Nasal Cannula 8 06/11/24 08:10 18 100/68 97 Nasal Cannula 8 06/11/24 07:32 Nasal Cannula 8 06/11/24 02:21 18 98 FiO2 06/11/24 11:00 06/11/24 10:30 06/11/24 10:00 06/11/24 09:30 06/11/24 09:28 06/11/24 09:20 06/11/24 08:42 06/11/24 08:10 06/11/24 07:32 06/11/24 02:21 30 Laboratory Results Laboratory Results - last 24 hr 06/11/24 06:04 Sodium 135 L Potassium 3.8 Chloride 100 Carbon Dioxide 28 Anion Gap 7 BUN 28 H Creatinine 3.09 H D Est Cr Clr Drug Dosing 33.9 eGFR 20.91 BUN/Creatinine Ratio 9.1 L Glucose 148 H Calcium 7.8 L PG Care Time/CCT Total # of Minutes Spent Total Time Spent with Patient: Total time spent is greater than 50% in coordination of care (as documented) at patient's floor/unit and/or counseling patient: Coding Level of Care Code 47601 SUB INP/OBS CARE 04/17MIN Diagnoses PAD (peripheral artery disease) I73.9 Cardiac pacemaker Z95.0 Atrial fibrillation I48.91 Atrial fibrillation type: unspecified End stage renal disease on dialysis N18.6; Z99.2 S/P TAVR (transcatheter aortic valve replacement) Z95.2 Autoimmune hepatitis treated with steroids K75.4 Chronic diastolic CHF (congestive heart failure) I50.32 Metastatic renal cell carcinoma C64.9 Hypertension I10 (3) Atrial fibrillation Atrial fibrillation type: unspecified Qualified Code(s): I48.91 - Unspecified atrial fibrillation
--- NOTE | 2024-06-11 12:43 | Palliative Family Discussion ---
Date of Service June 11, 2024 Patient Directed Conference Time of Meetin:00 Participants: Kali Bedoya AGACNP Patient participation: no Patient Support System: n/a Other Healthcare Provider Participation: None Meeting Location: pt's room Advanced Directive available: No If yes, descriptors: The patient's surrogate medical decision maker participated:yes Legally authorized health care proxy: spouse Other surrogate: n/a A family meeting was held for JACOB WANG. This meeting was necessary for determining the appropriate course of treatment. Topics of Discussion Met with pt's , pt was not present (at HD). Discussed and conformed her understanding that pt is at this time continuing HD with, as per his wishes, NO ESCALALTION of care, but IS NOT comfort care. She understands that when pt elects to transition to SEISMOGRAPH OBSERVER, he will be reassessed as to his level of care required through end of life. Discussed with her again that if pt is stable and requiring minimal medications for comfort he may be discharged to SNF for ongoing hospice care. If pt is actively dying or decompensates to the point of being unstable for transfer, he would then be EVALUATED for GIP. stated that this has been her understanding from our previous conversations and her is also understanding of this although he is hopeful that he does not need transfer. Time Involved in Meeting: I spent 50 minutes overall addressing this case: 10 in medical data review/discussion with referring provider(s) and/or preparation for the visit 0 in direct interaction with the patient (at HD) 30 Advance Care Planning/Goals of Care discussions as detailed above in note (must be >16min) 5 in subsequent review and synthesis of assessment and plan 5 in communicating with other providers regarding the patient's case: Christian Gallagher
[2024-06-12 06:26] LABS: Hematocrit (blood only) 30.4 % (42.0-52.0); Hemoglobin 8.9 g/dl (14.0-18.0); Mean Corpuscular Hgb Conc 29.3 g/dL (32.0-36.0); Mean Corpuscular Volume 102.4 fL (80.0-100.0); Mean Platelet Volume 11.2 fL (9.4-12.4); Nucleated RBC # (auto) 0.03 K/uL (0.00-0.12); Nucleated RBC % (auto) 0.6 %; Platelet Count 80 K/uL (130-400); RDW Coefficient of Variation 27.2 % (11.5-14.5); RDW Standard Deviation 100.7 fL (36.4-46.3); Red Blood Count 2.97 M/uL (4.70-6.10); White Blood Count 4.89 K/ul (4.8-10.8)
[2024-06-12 07:04] LABS: Albumin Globulin Ratio 1.1 (0.9-2); Albumin Level 2.4 gm/dl (3.4-5.0); BUN Creatinine Ratio 8.5 (10-20); Bilirubin,Total 1.4 mg/dl (0.2-1.0); Calcium 7.9 mg/dl (8.6-10.3); Creatinine Clr Calc Pharmacy 37.6 ml/min; Globulin 2.1 gm/dl (2.5-4.0); Potassium 3.9 mmol/L (3.5-5.1); Total Protein 4.5 gm/dl (6.0-8.3)
[2024-06-12 07:49] LABS: Anisocytosis Present; Basophils # (auto) 0.02 K/uL (0.00-0.20); Basophils % (auto) 0.4 %; Eosinophils # (auto) 0.01 K/uL (0.00-0.50); Eosinophils % (auto) 0.2 %; Immature Granulocytes # (auto) 0.34 K/uL (0.01-0.20); Lymphocytes % (auto) 12.3 %; Monocytes # (auto) 0.42 K/uL (0.11-0.59); Monocytes % (auto) 8.6 %; Neutrophils % (auto) 71.5 %; Ovalocytes 1+; Polychromasia 1+; Tear Drop Cells 1+
--- NOTE | 2024-06-12 09:06 | Nephrology Progress Note ---
Date of Service June 12, 2024 Assessment & Plan (1) End stage renal disease on dialysis: Plan: * Volume status and electrolyte balance acceptable. No acute indication for HD today * Plan for next HD on Friday * Mr. Guadalupe understands his prognosis. He requests continued supportive care until 06/24/24 and then transitioning to GRINDER SETUP OPERATOR (2) Anemia: (3) Renal cell carcinoma: (4) Quality of life palliative care encounter: Plan: * Mr. Guadalupe wants to continue dialysis treatments but does not want to escalate care. Palliative care is following. Plan is to transition to GRINDER SETUP OPERATOR following his wedding anniversary 06/24/24. Admission and Anticipated Discharge Date Admission Date: April 28, 2024 Subjective Mr. Guadalupe was evaluated in his hospital room this morning. He reports new ischemic lesions involving the toes of his L foot. Review of Systems Constitutional: no fever Eyes: no problem reported Ear, Nose, Mouth, Throat: no problem reported Respiratory: no dyspnea Cardiovascular: no chest pain Gastrointestinal: no abdominal pain, no nausea, no vomiting and no diarrhea/loose stools Integumentary: no rash Physical Exam Constitutional: not in distress Eyes: PERRL, conjunctivae normal, anicteric sclerae ENMT: external ear and nose normal, oropharynx normal Neck: trachea midline, no thyromegaly (IJ TCC w/ clean dry dressing) Respiratory: normal respiratory effort Auscultation: + rales (L base) Cardiovascular: RRR, no murmur, no edema Rate/Rhythm: regular rate and + irregularly irregular Extremities: + edema (3+ peripheral edema) Gastrointestinal (Abdomen): normal bowel sounds, soft, nontender, no hepatosplenomegaly Musculoskeletal: Extremities: + cyanosis (and ischemic lesions involving toes of L foot) Neurologic: awake; not confused Speech / Cognition: normal speech and normal cognition Results & Data Vital Signs (Past 12 Hours) Vital Signs Temp Pulse Pulse Resp BP Pulse Ox O2 Del Method 06/12/24 08:17 36.4 C L 80 18 97/68 L 100 Nasal Cannula 06/12/24 04:30 80 16 97 06/11/24 22:50 Nasal Cannula O2 Flow Rate FiO2 06/12/24 08:17 6 06/12/24 04:30 30 06/11/24 22:50 4 Laboratory Results Laboratory Results - last 24 hr 06/12/24 05:54 WBC 4.89 RBC 2.97 L Hgb 8.9 L Hct 30.4 L MCV 102.4 H MCH 30.0 MCHC 29.3 L RDW Std Deviation 100.7 H RDW Coeff of Nick 27.2 H Plt Count 80 L MPV 11.2 Immature Gran % (Auto) 7.0 Neut % (Auto) 71.5 Lymph % (Auto) 12.3 [place] % (Auto) 8.6 Eos % (Auto) 0.2 Baso % (Auto) 0.4 Neut # (Auto) 3.50 Lymph # (Auto) 0.60 L [place] # (Auto) 0.42 Eos # (Auto) 0.01 Baso # (Auto) 0.02 Immature Gran # (Auto) 0.34 H Absolute Nucleated RBC 0.03 Nucleated RBC % (auto) 0.6 Polychromasia 1+ Anisocytosis Present Tear Drop Cells 1+ Ovalocytes 1+ Sodium 135 L Potassium 3.9 Chloride 101 Carbon Dioxide 27 Anion Gap 7 BUN 24 H Creatinine 2.81 H Est Cr Clr Drug Dosing 37.6 eGFR 23.43 BUN/Creatinine Ratio 8.5 L Glucose 137 H Calcium 7.9 L Magnesium 2.0 Total Bilirubin 1.4 H AST 54 H ALT 31 Alkaline Phosphatase 483 H Total Protein 4.5 L Albumin 2.4 L Globulin 2.1 L Albumin/Globulin Ratio 1.1 PG Care Time/CCT Total # of Minutes Spent Total Time Spent with Patient: Total time spent is greater than 50% in coordination of care (as documented) at patient's floor/unit and/or counseling patient: Coding Level of Care Code 98196 SUB INP/OBS CARE 3/50MIN Diagnoses End stage renal disease on dialysis N18.6; Z99.2 Anemia D64.9 Renal cell carcinoma C64.9 Quality of life palliative care encounter Z51.5
--- NOTE | 2024-06-12 11:29 | Hospitalist Progress Note ---
Date of Service June 12, 2024 Assessment & Plan (1) PAD (peripheral artery disease): (2) Cardiac pacemaker: (3) Atrial fibrillation: (4) End stage renal disease on dialysis: (5) S/P TAVR (transcatheter aortic valve replacement): (6) Autoimmune hepatitis treated with steroids: (7) Chronic diastolic CHF (congestive heart failure): (8) Metastatic renal cell carcinoma: (9) Hypertension: Plan 68-year-old male with past medical history of ESRD on hemodialysis Friday, chronic diastolic congestive heart failure, aortic stenosis status post TAVR, atrial fibrillation, renal cell carcinoma with right nephrectomy and subsequent metastasis to left kidney on Opdivo therapy which has been complicated by immune hepatitis requiring steroid therapy, obesity, SARAH presents to the ED with bilateral lower extremity weakness and found to be positive for rhinovirus/enterovirus and also treated for pneumonia with complicated hospital course. Patient has been seen by palliative care and decision has been made by patient to continue with dialysis until June 24, 2024 which is his 49 anniversary and then he wants to stop dialysis and go on full comfort care and his wishes to in the hospital and not at home #End-stage renal disease on hemodialysis #Acute hypoxic respiratory failure secondary to volume overload/pulmonary edema and underlying pneumonia/rhinovirus/enterovirus infection #Acute on chronic diastolic congestive heart failure with preserved ejection fraction Patient was treated for pneumonia during hospital stay Nephrology is following the patient for dialysis: He received dialysis yesterday and is getting ultrafiltration today for fluid overload Plan is for him to get dialysis until June 24, 2024 at which point he will transition to comfort measures Continue oxygen as needed Palliative care team is following the patient #Atrial fibrillation chronic, long-standing permanent a.fib followed by outside cardiology near [place] Early in admission had had poor rate control despite meto succ BID + cardizem CD 120mg HS. Intolerant of increase because of hypotension. Was poor candidate for amio w/ abn LFTs and autoimmune hepatitis, prior cardioversion in past not successful AV node ablation with permanent pacemaker insertion on 05/13/[address] Mitchell eventually had recurrent A-fib repeat ablation with Dr Kyle on 05/25/24 He is on anticoagulation with apixaban 2.5 mg p.o. twice daily #Autoimmune hepatitis #Thrombocytopenia #Chronic anemia, likely anemia of chronic kidney disease Patient is on a steroid taper He is currently on prednisone 10 mg daily until 06/09/2024 at which point he stops taper He was initially on PJP prophylaxis which has been discontinued since he is currently on prednisone less than 20 mg/day Patient underwent bone marrow biopsy for anemia and thrombocytopenia and biopsy from 05/24/2024 shows normocellular marrow with trilineage hematopoiesis, erythroid hyperplasia and some dyserythropoiesis, decreased iron stores. Dyserythropoiesis does not meet the criteria for diagnosis of MDS at this point. #Peripheral arterial disease Patient has poor circulation with gangrenous toes He wants to continue dialysis and then switch to comfort measures and at this point does not wish for any further interventions #Hypothyroidism Continue levothyroxine 200 mcg p.o. daily CODE STATUS: DNR/DNI: Palliative care team following patient. No escalation of care at this point. DVT prophylaxis: Patient on apixaban Care plan discussed with patient, nursing staff and updated at bedside Admission and Anticipated Discharge Date Admission Date: April 28, 2024 Subjective Patient seen and examined today, says his condition has not changed, remains the same Review of Systems Review of Systems: All systems reviewed are negative, apart from the ones contained in the history. Physical Exam Physical Exam: The patient is awake, alert and oriented 3, well developed and well nourished, normocephalic and atraumatic, lying in bed and in no acute distress. HEENT--PERRL, EOMI, mucous membranes and oropharynx mildly dry Neck--supple. No JVD. No bruits. Thyroid normal, trachea midline, no adenopathy. Heart--normal S1 and S2. No murmurs, rubs or gallops. Lungs--clear bilaterally, no respiratory distress, no accessory muscle use. Abdomen--normal bowel sounds and soft. Extremities--cyanotic. pitting edema. Dermatologic--normal skin turgor, normal color, no abnormal lymph nodes, no rash. Neurologic--cranial nerves II through XII grossly intact. Rheumatologic--reduced ROM Psychiatric--normal affect. Results & Data Results & Data Vital Signs (Past 12 Hours) Vital Signs Temp Pulse Pulse Resp BP Pulse Ox O2 Del Method 06/12/24 08:17 97.5 F L 80 18 97/68 L 100 Nasal Cannula 06/12/24 04:30 80 16 97 O2 Flow Rate FiO2 06/12/24 08:17 6 06/12/24 04:30 30 PG Care Time/CCT Total # of Minutes Spent Total Time Spent with Patient: Total time spent is greater than 50% in coordination of care (as documented) at patient's floor/unit and/or counseling patient: Coding Level of Care Code 12486 SUB INP/OBS CARE 2/35MIN Diagnoses PAD (peripheral artery disease) I73.9 Cardiac pacemaker Z95.0 Atrial fibrillation I48.91 Atrial fibrillation type: unspecified End stage renal disease on dialysis N18.6; Z99.2 S/P TAVR (transcatheter aortic valve replacement) Z95.2 Autoimmune hepatitis treated with steroids K75.4 Chronic diastolic CHF (congestive heart failure) I50.32 Metastatic renal cell carcinoma C64.9 Hypertension I10 Time Spent (min) 35 (3) Atrial fibrillation Atrial fibrillation type: unspecified Qualified Code(s): I48.91 - Unspecified atrial fibrillation
[2024-06-13 06:52] LABS: Hematocrit (blood only) 29.5 % (42.0-52.0); Hemoglobin 8.5 g/dl (14.0-18.0); Mean Corpuscular Hemoglobin 28.8 pg (25.0-34.0); Mean Corpuscular Hgb Conc 28.8 g/dL (32.0-36.0); Platelet Count 85 K/uL (130-400); RDW Coefficient of Variation 26.3 % (11.5-14.5); RDW Standard Deviation 91.5 fL (36.4-46.3); Red Blood Count 2.95 M/uL (4.70-6.10); White Blood Count 5.35 K/ul (4.8-10.8)
--- NOTE | 2024-06-13 09:04 | Nephrology Progress Note ---
Date of Service June 13, 2024 Assessment & Plan (1) End stage renal disease on dialysis: Plan: * Volume status and electrolyte balance acceptable. No acute indication for HD today * Plan for next HD on Friday * Mr. Guadaluep understands his prognosis. He requests continued supportive care until 06/24/24 and then transitioning to DATA INTEGRITY CONSULTANT (2) Anemia: (3) Renal cell carcinoma: (4) Quality of life palliative care encounter: Plan: * Mr. Guadalupe wants to continue dialysis treatments but does not want to escalate care. Palliative care is following. Plan is to transition to DATA INTEGRITY CONSULTANT following his wedding anniversary 06/24/24. Admission and Anticipated Discharge Date Admission Date: April 28, 2024 Subjective Mr. Guadalupe was evaluated in his hospital room this morning. He states that he is comfortable and voices no concerns Review of Systems Constitutional: no fever Eyes: no problem reported Ear, Nose, Mouth, Throat: no problem reported Respiratory: no dyspnea Cardiovascular: no chest pain Gastrointestinal: no abdominal pain, no nausea, no vomiting and no diarrhea/loose stools Integumentary: no rash Physical Exam Constitutional: not in distress Eyes: PERRL, conjunctivae normal, anicteric sclerae ENMT: external ear and nose normal, oropharynx normal Neck: trachea midline, no thyromegaly (IJ TCC w/ clean dry dressing) Respiratory: normal respiratory effort Auscultation: lungs clear to auscultation bilaterally and + rales (L base) Cardiovascular: RRR, no murmur, no edema Rate/Rhythm: regular rate, regular rhythm, + tachycardic and + irregularly irregular Extremities: + edema (3+ peripheral edema) Gastrointestinal (Abdomen): normal bowel sounds, soft, nontender, no he patosplenomegaly Musculoskeletal: Extremities: + cyanosis (and ischemic lesions involving toes of L foot) Skin: no rashes, warm and dry Neurologic: awake; not confused Speech / Cognition: normal speech and normal cognition Results & Data Vital Signs (Past 12 Hours) Vital Signs Temp Pulse Pulse Resp BP Pulse Ox O2 Del Method 06/13/24 08:08 36.4 C L 88 20 105/75 98 Nasal Cannula 06/13/24 04:28 15 97 06/12/24 23:03 82 20 99 O2 Flow Rate FiO2 06/13/24 08:08 4 06/13/24 04:28 30 03/22/25 23:03 30 Laboratory Results Laboratory Results - last 24 hr 06/13/24 05:37 WBC 5.35 RBC 2.95 L Hgb 8.5 L Hct 29.5 L MCV 100.0 MCH 28.8 MCHC 28.8 L RDW Std Deviation 91.5 H RDW Coeff of Nick 26.3 H Plt Count 85 L MPV 11.0 PG Care Time/CCT Total # of Minutes Spent Total Time Spent with Patient: Total time spent is greater than 50% in coordination of care (as documented) at patient's floor/unit and/or counseling patient: Coding Level of Care Code 80786 SUB INP/OBS CARE 3/50MIN Diagnoses End stage renal disease on dialysis N18.6; Z99.2 Anemia D64.9 Renal cell carcinoma C64.9 Quality of life palliative care encounter Z51.5
--- NOTE | 2024-06-13 10:26 | Hospitalist Progress Note ---
Date of Service June 13, 2024 Assessment & Plan (1) PAD (peripheral artery disease): (2) Cardiac pacemaker: (3) Atrial fibrillation: (4) End stage renal disease on dialysis: (5) S/P TAVR (transcatheter aortic valve replacement): (6) Autoimmune hepatitis treated with steroids: (7) Chronic diastolic CHF (congestive heart failure): (8) Metastatic renal cell carcinoma: (9) Hypertension: Plan 68-year-old male with past medical history of ESRD on hemodialysis Friday, chronic diastolic congestive heart failure, aortic stenosis status post TAVR, atrial fibrillation, renal cell carcinoma with right nephrectomy and subsequent metastasis to left kidney on Opdivo therapy which has been complicated by immune hepatitis requiring steroid therapy, obesity, SARAH presents to the ED with bilateral lower extremity weakness and found to be positive for rhinovirus/enterovirus and also treated for pneumonia with complicated hospital course. Patient has been seen by palliative care and decision has been made by patient to continue with dialysis until June 24, 2024 which is his 49 anniversary and then he wants to stop dialysis and go on full comfort care and his wishes to in the hospital and not at home #End-stage renal disease on hemodialysis #Acute hypoxic respiratory failure secondary to volume overload/pulmonary edema and underlying pneumonia/rhinovirus/enterovirus infection #Acute on chronic diastolic congestive heart failure with preserved ejection fraction Patient was treated for pneumonia during hospital stay Nephrology is following the patient for dialysis: He received dialysis yesterday and is getting ultrafiltration today for fluid overload Plan is for him to get dialysis until June 24, 2024 at which point he will transition to comfort measures Continue oxygen as needed Palliative care team is following the patient #Atrial fibrillation chronic, long-standing permanent a.fib followed by outside cardiology near [place] Early in admission had had poor rate control despite meto succ BID + cardizem CD 120mg HS. Intolerant of increase because of hypotension. Was poor candidate for amio w/ abn LFTs and autoimmune hepatitis, prior cardioversion in past not successful AV node ablation with permanent pacemaker insertion on 05/13/[address] Mitchell eventually had recurrent A-fib repeat ablation with Dr Kyle on 05/25/24 He is on anticoagulation with apixaban 2.5 mg p.o. twice daily #Autoimmune hepatitis #Thrombocytopenia #Chronic anemia, likely anemia of chronic kidney disease Patient is on a steroid taper He is currently on prednisone 10 mg daily until 06/09/2024 at which point he stops taper He was initially on PJP prophylaxis which has been discontinued since he is currently on prednisone less than 20 mg/day Patient underwent bone marrow biopsy for anemia and thrombocytopenia and biopsy from 05/24/2024 shows normocellular marrow with trilineage hematopoiesis, erythroid hyperplasia and some dyserythropoiesis, decreased iron stores. Dyserythropoiesis does not meet the criteria for diagnosis of MDS at this point. #Peripheral arterial disease Patient has poor circulation with gangrenous toes He wants to continue dialysis and then switch to comfort measures and at this point does not wish for any further interventions #Hypothyroidism Continue levothyroxine 200 mcg p.o. daily CODE STATUS: DNR/DNI: Palliative care team following patient. No escalation of care at this point. he wants to switch to comfort care only after 06/24 DVT prophylaxis: Patient on apixaban Care plan discussed with patient, nursing staff and updated at bedside Admission and Anticipated Discharge Date Admission Date: April 28, 2024 Subjective patient seen and examined, no new concerns Review of Systems Review of Systems: All systems reviewed are negative, apart from the ones contained in the history. Physical Exam Physical Exam: The patient is awake, alert and oriented 3, well developed and well nourished, normocephalic and atraumatic, lying in bed and in no acute distress. HEENT--PERRL, EOMI, mucous membranes and oropharynx mildly dry Neck--supple. No JVD. No bruits. Thyroid normal, trachea midline, no adenopat hy. Heart--normal S1 and S2. No murmurs, rubs or gallops. Lungs--reduced air entry Abdomen--normal bowel sounds and soft. Extremities--cyanotic. pitting edema. Dermatologic--bruises Neurologic--cranial nerves II through XII grossly intact. Rheumatologic--reduced ROM Psychiatric--normal affect. Results & Data Results & Data Vital Signs (Past 12 Hours) Vital Signs Temp Pulse Pulse Resp BP Pulse Ox O2 Del Method 06/13/24 08:08 97.5 F L 88 20 105/75 98 Nasal Cannula 06/13/24 04:28 15 97 06/12/24 23:03 82 20 99 O2 Flow Rate FiO2 06/13/24 08:08 4 06/13/24 04:28 30 06/12/24 23:03 30 PG Care Time/CCT Total # of Minutes Spent Total Time Spent with Patient: Total time spent is greater than 50% in coordination of care (as documented) at patient's floor/unit and/or counseling patient: Coding Level of Care Code 25003 SUB INP/OBS CARE 2/35MIN Diagnoses PAD (peripheral artery disease) I73.9 Cardiac pacemaker Z95.0 Atrial fibrillation I48.91 Atrial fibrillation type: unspecified End stage renal disease on dialysis N18.6; Z99.2 S/P TAVR (transcatheter aortic valve replacement) Z95.2 Autoimmune hepatitis treated with steroids K75.4 Chronic diastolic CHF (congestive heart failure) I50.32 Metastatic renal cell carcinoma C64.9 Hypertension I10 Time Spent (min) 35 (3) Atrial fibrillation Atrial fibrillation type: unspecified Qualified Code(s): I48.91 - Unspecified atrial fibrillation
[2024-06-14] MEDS ORDERED: SODIUM CHLORIDE 0.9% 1,000 ML IV PRN (07:00)
--- NOTE | 2024-06-14 08:42 | Nephrology Progress Note ---
Date of Service June 14, 2024 Assessment & Plan (1) End stage renal disease on dialysis: Plan: * HD today. Orders have been entered into EMR and HD RN notified * Mr. Guadalupe understands his prognosis. He requests continued supportive care until 06/24/24 (his wedding anniversary) and then plans to transition to ROLL FORMING MACHINE OPERATOR (2) Anemia: (3) Renal cell carcinoma: (4) Quality of life palliative care encounter: Plan: * Mr. Guadalupe wants to continue dialysis treatments but does not want to escalate care. Palliative care is following. Plan is to transition to ROLL FORMING MACHINE OPERATOR following his wedding anniversary 06/24/24. Admission and Anticipated Discharge Date Admission Date: April 28, 2024 Subjective Mr. Guadalupe was evaluated in his hospital room this morning. He was preparing for HD and voiced no concerns Review of Systems Constitutional: no fever Eyes: no problem reported Ear, Nose, Mouth, Throat: no problem reported Respiratory: no dyspnea Cardiovascular: no chest pain Gastrointestinal: no abdominal pain, no nausea, no vomiting and no diarrhe a/loose stools Integumentary: no rash Physical Exam Constitutional: not in distress Eyes: PERRL, conjunctivae normal, anicteric sclerae ENMT: external ear and nose normal, oropharynx normal Neck: trachea midline, no thyromegaly (IJ TCC w/ clean dry dressing) Respiratory: normal respiratory effort Auscultation: lungs clear to auscultation bilaterally and + rales (L base) Cardiovascular: RRR, no murmur, no edema Rate/Rhythm: regular rate, regular rhythm, + tachycardic and + irregularly irregular Extremities: + edema (3+ peripheral edema) Gastrointestinal (Abdomen): normal bowel sounds, soft, nontender, no hepatosplenomegaly Musculoskeletal: Extremities: + cyanosis (and ischemic lesions involving toes of L foot) Skin: no rashes, warm and dry Neurologic: awake; not confused Speech / Cognition: normal speech and normal cognition Results & Data Vital Signs (Past 12 Hours) Vital Signs Temp Pulse Pulse Pulse Resp BP Pulse Ox 06/14/24 07:40 36.4 C L 82 16 88/58 L 98 06/14/24 02:15 82 18 100 06/13/24 22:55 78 17 99 06/13/24 21:37 78 18 99 06/13/24 21:30 O2 Del Method O2 Flow Rate FiO2 06/14/24 07:40 CPAP 06/14/24 02:15 30 06/13/24 22:55 30 06/13/24 21:37 Nasal Cannula 4 06/13/24 21:30 Nasal Cannula, BiPAP 4 Laboratory Results No labs today PG Care Time/CCT Total # of Minutes Spent Total Time Spent with Patient: Total time spent is greater than 50% in coordination of care (as documented) at patient's floor/unit and/or counseling patient: Coding Level of Care Code 15377 SUB INP/OBS CARE 3/50MIN Diagnoses End stage renal disease on dialysis N18.6; Z99.2 Anemia D64.9 Renal cell carcinoma C64.9 Quality of life palliative care encounter Z51.5
[2024-06-14] MEDS: EPOETIN ALFA 20,000 UNITS/ML VIAL IV ONE (11:17)
--- NOTE | 2024-06-14 12:05 | Hospitalist Progress Note ---
Date of Service June 14, 2024 Assessment & Plan (1) PAD (peripheral artery disease): (2) Cardiac pacemaker: (3) Atrial fibrillation: (4) End stage renal disease on dialysis: (5) S/P TAVR (transcatheter aortic valve replacement): (6) Autoimmune hepatitis treated with steroids: (7) Chronic diastolic CHF (congestive heart failure): (8) Metastatic renal cell carcinoma: (9) Hypertension: Plan 68-year-old male with past medical history of ESRD on hemodialysis Friday, chronic diastolic congestive heart failure, aortic stenosis status post TAVR, atrial fibrillation, renal cell carcinoma with right nephrectomy and subsequent metastasis to left kidney on Opdivo therapy which has been complicated by immune hepatitis requiring steroid therapy, obesity, SARAH presents to the ED with bilateral lower extremity weakness and found to be positive for rhinovirus/enterovirus and also treated for pneumonia with complicated hospital course. Patient has been seen by palliative care and decision has been made by patient to continue with dialysis until June 24, 2024 which is his 47 anniversary and then he wants to stop dialysis and go on full comfort care and his wishes to in the hospital and not at home #End-stage renal disease on hemodialysis #Acute hypoxic respiratory failure secondary to volume overload/pulmonary edema and underlying pneumonia/rhinovirus/enterovirus infection #Acute on chronic diastolic congestive heart failure with preserved ejection fraction Patient was treated for pneumonia during hospital stay Nephrology is following the patient for dialysis: He received dialysis yesterday and is getting ultrafiltration today for fluid overload Plan is for him to get dialysis until June 24, 2024 at which point he will transition to comfort measures HD was stopped due to hypotension today, only 1L UF was obtained Continue oxygen as needed Palliative care team is following the patient #Atrial fibrillation chronic, long-standing permanent a.fib followed by outside cardiology near [place] Early in admission had had poor rate control despite meto succ BID + cardizem CD 120mg HS. Intolerant of increase because of hypotension. Was poor candidate for amio w/ abn LFTs and autoimmune hepatitis, prior cardioversion in past not successful AV node ablation with permanent pacemaker insertion on 05/13/[address] Mitchell eventually had recurrent A-fib repeat ablation with Dr Kyle on 05/25/24 He is on anticoagulation with apixaban 2.5 mg p.o. twice daily #Autoimmune hepatitis #Thrombocytopenia #Chronic anemia, likely anemia of chronic kidney disease Patient is on a steroid taper He is currently on prednisone 10 mg daily until 06/09/2024 at which point he stops taper He was initially on PJP prophylaxis which has been discontinued since he is currently on prednisone less than 20 mg/day Patient underwent bone marrow biopsy for anemia and thrombocytopenia and biopsy from 05/24/2024 shows normocellular marrow with trilineage hematopoiesis, erythroid hyperplasia and some dyserythropoiesis, decreased iron stores. Dyserythropoiesis does not meet the criteria for diagnosis of MDS at this point. #Peripheral arterial disease Patient has poor circulation with gangrenous toes He wants to continue dialysis and then switch to comfort measures and at this point does not wish for any further interventions #Hypothyroidism Continue levothyroxine 200 mcg p.o. daily CODE STATUS: DNR/DNI: Palliative care team following patient. No escalation of care at this point. he wants to switch to comfort care only after 06/24 DVT prophylaxis: Patient on apixaban Care plan discussed with patient, nursing staff and updated at bedside Admission and Anticipated Discharge Date Admission Date: April 28, 2024 Subjective HD was stopped due to hypotension today, only 1L UF was obtained Review of Systems Review of Systems: All systems reviewed are negative, apart from the ones contained in the history. Physical Exam Physical Exam: The patient is awake, alert and oriented 3, well developed and well nourished, normocephalic and atraumatic, lying in bed and in no acute distress. HEENT--PERRL, EOMI, mucous membranes and oropharynx mildly dry Neck--supple. No JVD. No bruits. Thyroid normal, trachea midline, no adenopathy. Heart--normal S1 and S2. No murmurs, rubs or gallops. Lungs--reduced air entry Abdomen--normal bowel sounds and soft. Extremities--cyanotic. pitting edema. Dermatologic--bruises Neurologic--cranial nerves II through XII grossly intact. Rheumatologic--reduced ROM Psychiatric--normal affect. Results & Data Results & Data Vital Signs (Past 12 Hours) Vital Signs Temp Pulse Pulse Pulse Resp BP BP 06/14/24 11:00 87 89/39 L 06/14/24 10:30 80 94/61 L 06/14/24 10:21 80 23 06/14/24 10:20 80 23 06/14/24 10:15 06/14/24 10:15 58 L 81/57 L 06/14/24 10:00 80 85/54 L 06/14/24 09:32 82 111/71 06/14/24 07:40 97.5 F L 82 16 88/58 L 06/14/24 02:15 82 18 Pulse Ox O2 Del Method O2 Flow Rate FiO2 06/14/24 11:00 06/14/24 10:30 06/14/24 10:21 97 30 06/14/24 10:20 98 Nasal Cannula 6 06/14/24 10:15 Nasal Cannula 4 06/14/24 10:15 06/14/24 10:00 06/14/24 09:32 06/14/24 07:40 98 CPAP 06/14/24 02:15 100 30 PG Care Time/CCT Total # of Minutes Spent Total Time Spent with Patient: Total time spent is greater than 50% in coordination of care (as documented) at patient's floor/unit and/or counseling patient: Coding Level of Care Code 55218 SUB INP/OBS CARE 2/35MIN Diagnoses PAD (peripheral artery disease) I73.9 Cardiac pacemaker Z95.0 Atrial fibrillation I48.91 Atrial fibrillation type: unspecified End stage renal disease on dialysis N18.6; Z99.2 S/P TAVR (transcatheter aortic valve replacement) Z95.2 Autoimmune hepatitis treated with steroids K75.4 Chronic diastolic CHF (congestive heart failure) I50.32 Metastatic renal cell carcinoma C64.9 Hypertension I10 Time Spent (min) 35 (3) Atrial fibrillation Atrial fibrillation type: unspecified Qualified Code(s): I48.91 - Unspecified atrial fibrillation
--- NOTE | 2024-06-14 16:47 | Palliative Family Discussion ---
Date of Service June 14, 2024 Patient Directed Conference Time of Meetin:00 -10:30 Participants:KathyLadan Bedoya AGACNP Patient participation: not available Patient Support System: Other Healthcare Provider Participation: None Meeting Location: pt room Advanced Directive available: no If yes, descriptors: The patient's surrogate medical decision maker participated: yes Legally authorized health care proxy: Other surrogate: n/a A family meeting was held for JACOB WANG. This meeting was necessary for determining the appropriate course of treatment. Topics of Discussion Topics of Discussion: 1. Goals 2. EOL anticipatory guidance Other Content of Meetin. Opportunity given for participants to speak and ask questions. 2. Participants were assured of attention to patient comfort. 3. Reassurance provided. 4. Support was provided for informed, good-josh decisions. 5. Emotions expressed by family were acknowledged and addressed. 6. Follow-up Outpatient: n/a 7. Plan of Care: continue current level of care, no escalation of care Met with pt's at bedside, pt was off unit for dialysis. She expressed concern that the pt had worsening dyspnea/SOB and appeared to have more distress over weekend. She shared that pt had HD on Friday but not friday and yesterday was particularly bad for him with aggressive productive cough and dyspnea at rest. She shared concern that his heart failure and kidney failure are worsening. We discussed that dyspnea is a common symptom of renal failure especially in pt's with concomitant heart failure. She expressed understanding and shared that the pt had mentioned that the discomfort he experienced has him reconsidering his choice to not continue daily HD. She reaffirmed the wish to continue HD through at least June 25 and then revisit [facility] with likely transition to FISHING ROD MECHANIC at that time. She questioned what the dying process might look like for the pt and expressed concern that it might be quick given how quickly he developed dyspnea after missing just one HD session. She also expressed concern that pt is experiencing more confusion, especially at night. Discussed changes pt may move through in the dying process including but not limited to sleeping more, disorientation when awake, restlessness, diminished senses/inability to respond to stimulus although ability to be aware of them remains intact longer, and changes in body temperatures, skin changes/mottling/cyanosis, respiratory pattern changes, and oral secretions. Family verbalized understanding. The goal is to assure a peaceful . Reinforced with her that final disposition (SNF with hospice vs GIP) would be dependent on his symptom burden as well as hemodynamic stability after transition to FISHING ROD MECHANIC. She verbalized understanding. Time Involved in Meeting: I spent 45 minutes overall addressing this case: 5 in medical data review/discussion with referring provider(s) and/or preparation for the visit 30 in direct interaction with the patient's 30 Advance Care Planning/Goals of Care discussions as detailed above in note (must be >16min) 5 in subsequent review and synthesis of assessment and plan 5 in communicating with other providers regarding the patient's case: attending
[2024-06-15 07:12] LABS: Hematocrit (blood only) 31.2 % (42.0-52.0); Hemoglobin 9.2 g/dl (14.0-18.0); Mean Corpuscular Hemoglobin 29.5 pg (25.0-34.0); Mean Corpuscular Hgb Conc 29.5 g/dL (32.0-36.0); Mean Platelet Volume 11.2 fL (9.4-12.4); Nucleated RBC # (auto) 0.02 K/uL (0.00-0.12); Nucleated RBC % (auto) 0.3 %; Platelet Count 106 K/uL (130-400); RDW Coefficient of Variation 25.5 % (11.5-14.5); RDW Standard Deviation 91.7 fL (36.4-46.3); Red Blood Count 3.12 M/uL (4.70-6.10)
[2024-06-15 07:33] LABS: BUN Creatinine Ratio 9.5 (10-20); Creatinine Clr Calc Pharmacy 25.2 ml/min; Potassium 4.6 mmol/L (3.5-5.1)
--- NOTE | 2024-06-15 08:51 | Nephrology Progress Note ---
Date of Service June 15, 2024 Assessment & Plan (1) End stage renal disease on dialysis: Plan: * Discussed goals of care w/ Mr. Guadalupe and his this morning * Explained that HD has become difficult due to relative hypotension. This has limited our ability to provide UF * Discussed ischemic/inflammatory changes involving patient's L foot. This is likely contributing to patient's instability * Mr. Guadalupe wishes to continue w/ HD. Again, his stated desire is to celebrate his wedding anniversary 06/24/24 and then transition to ASSISTANT DESIGNER * He is in agreement to have shortened HD treatments with less UF in order to avoid complications on HD and achieve his goal of living to 06/24/24 * Volume status and electrolyte balance are acceptable this morning. Will schedule next HD for am (2) Anemia: (3) Renal cell carcinoma: (4) Quality of life palliative care encounter: Plan: * Mr. Guadalupe wants to continue dialysis treatments but does not want to escalate care. Palliative care is following. Plan is to transition to ASSISTANT DESIGNER following his wedding anniversary 06/24/24. Admission and Anticipated Discharge Date Admission Date: April 28, 2024 Subjective Mr. Guadalupe was evaluated in his hospital room this morning. Dialysis was complicated by hypotension and dyspnea yesterday. Only 1L UF obtained Review of Systems Constitutional: no fever Eyes: no problem reported Ear, Nose, Mouth, Throat: no problem reported Respiratory: no dyspnea Cardiovascular: no chest pain Gastrointestinal: no abdominal pain, no nausea, no vomiting and no diarrhea/loose stools Integumentary: no rash Physical Exam Constitutional: not in distress Eyes: PERRL, conjunctivae normal, anicteric sclerae ENMT: external ear and nose normal, oropharynx normal Neck: trachea midline, no thyromegaly (IJ TCC w/ clean dry dressing) Respiratory: normal respiratory effort Auscultation: lungs clear to auscultation bilaterally and + rales (L base) Cardiovascular: RRR, no murmur, no edema Rate/Rhythm: regular rate, regular rhythm, + tachycardic and + irregularly irregular Extremities: + edema (3+ peripheral edema) Gastrointestinal (Abdomen): normal bowel sounds, soft, nontender, no hepatosplenomegaly Musculoskeletal: Extremities: + cyanosis (and ischemic lesions involving toes of L foot) Skin: no rashes, warm and dry Neurologic: awake; not confused Speech / Cognition: normal speech and normal cognition Results & Data Vital Signs (Past 12 Hours) Vital Signs Temp Pulse Pulse Resp BP Pulse Ox O2 Del Method 06/15/24 07:10 36.3 C L 80 16 87/64 L 92 Nasal Cannula 06/15/24 05:19 15 97 06/14/24 23:08 81 21 99 O2 Flow Rate FiO2 06/15/24 07:10 4 06/15/24 05:19 30 06/14/24 23:08 30 Laboratory Results Laboratory Results - last 24 hr 06/15/24 06:30 WBC 5.90 RBC 3.12 L Hgb 9.2 L Hct 31.2 L MCV 100.0 MCH 29.5 MCHC 29.5 L RDW Std Deviation 91.7 H RDW Coeff of Nick 25.5 H Plt Count 106 L MPV 11.2 Absolute Nucleated RBC 0.02 Nucleated RBC % (auto) 0.3 Sodium 134 L Potassium 4.6 Chloride 102 Carbon Dioxide 24 Anion Gap 8 BUN 40 H Creatinine 4.20 H Est Cr Clr Drug Dosing 25.2 eGFR 14.47 BUN/Creatinine Ratio 9.5 L Glucose 134 H Calcium 8.0 L PG Care Time/CCT Total # of Minutes Spent Total Time Spent with Patient: Total time spent is greater than 50% in coordination of care (as documented) at patient's floor/unit and/or counseling patient: Coding Level of Care Code 93725 SUB INP/OBS CARE 3/50MIN Diagnoses End stage renal disease on dialysis N18.6; Z99.2 Anemia D64.9 Renal cell carcinoma C64.9 Quality of life palliative care encounter Z51.5
--- NOTE | 2024-06-15 11:51 | Hospitalist Progress Note ---
Date of Service June 15, 2024 Assessment & Plan (1) PAD (peripheral artery disease): (2) Cardiac pacemaker: (3) Atrial fibrillation: (4) End stage renal disease on dialysis: (5) S/P TAVR (transcatheter aortic valve replacement): (6) Autoimmune hepatitis treated with steroids: (7) Chronic diastolic CHF (congestive heart failure): (8) Metastatic renal cell carcinoma: (9) Hypertension: Plan 68-year-old male with past medical history of ESRD on hemodialysis Friday, chronic diastolic congestive heart failure, aortic stenosis status post TAVR, atrial fibrillation, renal cell carcinoma with right nephrectomy and subsequent metastasis to left kidney on Opdivo therapy which has been complicated by immune hepatitis requiring steroid therapy, obesity, SARAH presents to the ED with bilateral lower extremity weakness and found to be positive for rhinovirus/enterovirus and also treated for pneumonia with complicated hospital course. Patient has been seen by palliative care and decision has been made by patient to continue with dialysis until June 24, 2024 which is his 49 anniversary and then he wants to stop dialysis and go on full comfort care and his wishes to in the hospital and not at home #End-stage renal disease on hemodialysis #Acute hypoxic respiratory failure secondary to volume overload/pulmonary edema and underlying pneumonia/rhinovirus/enterovirus infection #Acute on chronic diastolic congestive heart failure with preserved ejection fraction Patient was treated for pneumonia during hospital stay Nephrology is following the patient for dialysis: Plan is for him to get dialysis until June 24, 2024 at which point he will transition to comfort measures HD was stopped due to hypotension 06/14/24, only 1L UF was obtained Continue oxygen as needed Palliative care team is following the patient Patient still wants to continue with hemodialysis as planned till #Atrial fibrillation chronic, long-standing permanent a.fib followed by outside cardiology near [place] Early in admission had had poor rate control despite meto succ BID + cardizem CD 120mg HS. Intolerant of increase because of hypotension. Was poor candidate for amio w/ abn LFTs and autoimmune hepatitis, prior cardioversion in past not successful AV node ablation with permanent pacemaker insertion on 05/13/[address] Mitchell eventually had recurrent A-fib repeat ablation with Dr Kyle on 05/25/24 He is on anticoagulation with apixaban 2.5 mg p.o. twice daily #Autoimmune hepatitis #Thrombocytopenia #Chronic anemia, likely anemia of chronic kidney disease Patient is on a steroid taper He is currently on prednisone 10 mg daily until 06/09/2024 at which point he stops taper He was initially on PJP prophylaxis which has been discontinued since he is currently on prednisone less than 20 mg/day Patient underwent bone marrow biopsy for anemia and thrombocytopenia and biopsy from 05/24/2024 shows normocellular marrow with trilineage hematopoiesis, erythroid hyperplasia and some dyserythropoiesis, decreased iron stores. Dyserythropoiesis does not meet the criteria for diagnosis of MDS at this point. #Peripheral arterial disease Patient has poor circulation with gangrenous toes He wants to continue dialysis and then switch to comfort measures and at this point does not wish for any further interventions #Hypothyroidism Continue levothyroxine 200 mcg p.o. daily CODE STATUS: DNR/DNI: Palliative care team following patient. No escalation of care at this point. he wants to switch to comfort care only after 06/24 DVT prophylaxis: Patient on apixaban Care plan discussed with patient, nursing staff and updated at bedside Admission and Anticipated Discharge Date Admission Date: April 28, 2024 Subjective Patient seen and examined, could not tolerate multiple hemodialysis yesterday, only 1 L ultrafiltration removed, his shortness of breath got worse yesterday as well and his leg swelling. Review of Systems Review of Systems: All systems reviewed are negative, apart from the ones contained in the history. Physical Exam Physical Exam: The patient is awake, alert and oriented 3, well developed and well nourished, normocephalic and atraumatic, lying in bed and in no acute distress. HEENT--PERRL, EOMI, mucous membranes and oropharynx mildly dry Neck--supple. No JVD. No bruits. Thyroid normal, trachea midline, no adenopathy. Heart--normal S1 and S2. No murmurs, rubs or gallops. Lungs--reduced air entry Abdomen--normal bowel sounds and soft. Extremities--cyanotic. pitting edema. Dermatologic--bruises Neurologic--cranial nerves II through XII grossly intact. Rheumatologic--reduced ROM Psychiatric--normal affect. Results & Data Results & Data Vital Signs (Past 12 Hours) Vital Signs Temp Pulse Resp BP Pulse Ox O2 Del Method O2 Flow Rate 06/15/24 10:31 Nasal Cannula 5 06/15/24 07:10 97.3 F L 80 16 87/64 L 92 Nasal Cannula 4 06/15/24 05:19 15 97 FiO2 06/15/24 10:31 06/15/24 07:10 06/15/24 05:19 30 PG Care Time/CCT Total # of Minutes Spent Total Time Spent with Patient: Total time spent is greater than 50% in coordination of care (as documented) at patient's floor/unit and/or counseling patient: Coding Level of Care Code 66197 SUB INP/OBS CARE 2/35MIN Diagnoses PAD (peripheral artery disease) I73.9 Cardiac pacemaker Z95.0 Atrial fibrillation I48.91 Atrial fibrillation type: unspecified End stage renal disease on dialysis N18.6; Z99.2 S/P TAVR (transcatheter aortic valve replacement) Z95.2 Autoimmune hepatitis treated with steroids K75.4 Chronic diastolic CHF (congestive heart failure) I50.32 Metastatic renal cell carcinoma C64.9 Hypertension I10 Time Spent (min) 35 (3) Atrial fibrillation Atrial fibrillation type: unspecified Qualified Code(s): I48.91 - Unspecified atrial fibrillation
[2024-06-16] MEDS ORDERED: SODIUM CHLORIDE 0.9% 1,000 ML IV PRN (07:00)
--- NOTE | 2024-06-16 08:53 | Nephrology Progress Note ---
Date of Service June 16, 2024 Assessment & Plan (1) End stage renal disease on dialysis: Plan: * Mr. Guadalupe wishes to continue w/ HD. 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 Will dialyze for 2 hours and attempt 1-2 L as guided by BP, symptoms (2) Anemia: (3) Renal cell carcinoma: (4) Quality of life palliative care encounter: Plan: * Mr. Guadalupe wants to continue dialysis treatments but does not want to escalate care. Palliative care is following. 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 Admission and Anticipated Discharge Date Admission Date: April 28, 2024 Subjective Mr. Guadalupe was evaluated in his hospital room this morning. He wishes to continue with HD. He c/o weakness but voices no other medical concerns Review of Systems Constitutional: no fever Eyes: no problem reported Ear, Nose, Mouth, Throat: no problem reported Respiratory: no dyspnea Cardiovascular: no chest pain Gastrointestinal: no abdominal pain, no nausea, no vomiting and no diarrhea/loose stools Integumentary: no rash Physical Exam Constitutional: not in distress Eyes: PERRL, conjunctivae normal, anicteric sclerae ENMT: external ear and nose normal, oropharynx normal Neck: trachea midline, no thyromegaly (IJ TCC w/ clean dry dressing) Respiratory: normal respiratory effort Auscultation: lungs clear to auscultation bilaterally and + rales (L base) Cardiovascular: RRR, no murmur, no edema Rate/Rhythm: regular rate, regular rhythm, + tachycardic and + irregularly irregular Extremities: + edema (3+ peripheral edema) Gastrointestinal (Abdomen): normal bowel sounds, soft, nontender, no hepatosplenomegaly Musculoskeletal: Extremities: + cyanosis (and ischemic lesions involving toes of L foot) Skin: no rashes, warm and dry Neurologic: awake; not confused Speech / Cognition: normal speech and normal cognition Results & Data Vital Signs (Past 12 Hours) Vital Signs Temp Pulse Pulse Pulse Resp BP Pulse Ox 06/16/24 08:46 76 20 99 06/16/24 08:27 36.4 C L 80 16 94/64 L 100 06/16/24 02:59 76 16 99 06/15/24 22:07 77 22 98 O2 Del Method O2 Flow Rate FiO2 06/16/24 08:46 Nasal Cannula 6 06/16/24 08:27 Nasal Cannula 4 06/16/24 02:59 30 06/15/24 22:07 30 PG Care Time/CCT Total # of Minutes Spent Total Time Spent with Patient: Total time spent is greater than 50% in coordination of care (as documented) at patient's floor/unit and/or counseling patient: Coding Level of Care Code 23729 SUB INP/OBS CARE 3/50MIN Diagnoses End stage renal disease on dialysis N18.6; Z99.2 Anemia D64.9 Renal cell carcinoma C64.9 Quality of life palliative care encounter Z51.5
--- NOTE | 2024-06-16 10:55 | Hospitalist Progress Note ---
Date of Service June 16, 2024 Assessment & Plan (1) PAD (peripheral artery disease): (2) Cardiac pacemaker: (3) Atrial fibrillation: (4) End stage renal disease on dialysis: (5) S/P TAVR (transcatheter aortic valve replacement): (6) Autoimmune hepatitis treated with steroids: (7) Chronic diastolic CHF (congestive heart failure): (8) Metastatic renal cell carcinoma: (9) Hypertension: Plan 68-year-old male with past medical history of ESRD on hemodialysis Friday, chronic diastolic congestive heart failure, aortic stenosis status post TAVR, atrial fibrillation, renal cell carcinoma with right nephrectomy and subsequent metastasis to left kidney on Opdivo therapy which has been complicated by immune hepatitis requiring steroid therapy, obesity, SARAH presents to the ED with bilateral lower extremity weakness and found to be positive for rhinovirus/enterovirus and also treated for pneumonia with complicated hospital course. Patient has been seen by palliative care and decision has been made by patient to continue with dialysis until June 24, 2024 which is his 49 anniversary and then he wants to stop dialysis and go on full comfort care and his wishes to in the hospital and not at home #End-stage renal disease on hemodialysis #Acute hypoxic respiratory failure secondary to volume overload/pulmonary edema and underlying pneumonia/rhinovirus/enterovirus infection #Acute on chronic diastolic congestive heart failure with preserved ejection fraction Patient was treated for pneumonia during hospital stay Nephrology is following the patient for dialysis: Plan is for him to get dialysis until June 24, 2024 at which point he will transition to comfort measures HD was stopped due to hypotension 06/14/24, only 1L UF was obtained, patient plans to continue HD Continue oxygen as needed Palliative care team is following the patient Patient still wants to continue with hemodialysis as planned till june #Atrial fibrillation chronic, long-standing permanent a.fib followed by outside cardiology near [place] Early in admission had had poor rate control despite meto succ BID + cardizem CD 120mg HS. Intolerant of increase because of hypotension. Was poor candidate for amio w/ abn LFTs and autoimmune hepatitis, prior cardioversion in past not successful AV node ablation with permanent pacemaker insertion on 05/13/[address] iMtchell eventually had recurrent A-fib repeat ablation with Dr Kyle on 05/25/24 He is on anticoagulation with apixaban 2.5 mg p.o. twice daily #Autoimmune hepatitis #Thrombocytopenia #Chronic anemia, likely anemia of chronic kidney disease Patient is on a steroid taper He is currently on prednisone 10 mg daily until 06/09/2024 at which point he stops taper He was initially on PJP prophylaxis which has been discontinued since he is currently on prednisone less than 20 mg/day Patient underwent bone marrow biopsy for anemia and thrombocytopenia and biopsy from 05/24/2024 shows normocellular marrow with trilineage hematopoiesis, erythroid hyperplasia and some dyserythropoiesis, decreased iron stores. Dyserythropoiesis does not meet the criteria for diagnosis of MDS at this point. #Peripheral arterial disease Patient has poor circulation with gangrenous toes, it continues to get worse He wants to continue dialysis and then switch to comfort measures and at this point does not wish for any further interventions #Hypothyroidism Continue levothyroxine 200 mcg p.o. daily CODE STATUS: DNR/DNI: Palliative care team following patient. No escalation of care at this point. he wants to switch to comfort care only after 06/24 DVT prophylaxis: Patient on apixaban Care plan discussed with patient, nursing staff and updated at bedside Admission and Anticipated Discharge Date Admission Date: April 28, 2024 Subjective patient seen and examined, at the bedside, he wants to be dialyzed today Review of Systems Review of Systems: All systems reviewed are negative, apart from the ones contained in the history. Physical Exam Physical Exam: The patient is awake, alert and oriented 3, well developed and well nourished, normocephalic and atraumatic, lying in bed and in no acute distress. HEENT--PERRL, EOMI, mucous membranes and oropharynx mildly dry Neck--supple. No JVD. No bruits. Thyroid normal, trachea midline, no adenopathy. Heart--normal S1 and S2. No murmurs, rubs or gallops. Lungs--reduced air entry Abdomen--normal bowel sounds and soft. Extremities--cyanotic. pitting edema. Dermatologic--bruises Neurologic--cranial nerves II through XII grossly intact. Rheumatologic--reduced ROM Psychiatric--normal affect. Results & Data Results & Data Vital Signs (Past 12 Hours) Vital Signs Temp Pulse Pulse Pulse Pulse Resp BP 06/16/24 10:15 80 94/66 L 06/16/24 10:00 80 95/62 L 06/16/24 09:30 80 99/64 L 06/16/24 09:15 80 108/68 06/16/24 09:08 97.5 F L 82 06/16/24 08:46 76 20 06/16/24 08:27 97.5 F L 80 16 06/16/24 02:59 76 16 BP Pulse Ox O2 Del Method O2 Flow Rate FiO2 06/16/24 10:15 06/16/24 10:00 06/16/24 09:30 06/16/24 09:15 06/16/24 09:08 06/16/24 08:46 99 Nasal Cannula 6 06/16/24 08:27 94/64 L 100 Nasal Cannula 4 06/16/24 02:59 99 30 PG Care Time/CCT Total # of Minutes Spent Total Time Spent with Patient: Total time spent is greater than 50% in coordination of care (as documented) at patient's floor/unit and/or counseling patient: Coding Level of Care Code 45834 SUB INP/OBS CARE 2/35MIN Diagnoses PAD (peripheral artery disease) I73.9 Cardiac pacemaker Z95.0 Atrial fibrillation I48.91 Atrial fibrillation type: unspecified End stage renal disease on dialysis N18.6; Z99.2 S/P TAVR (transcatheter aortic valve replacement) Z95.2 Autoimmune hepatitis treated with steroids K75.4 Chronic diastolic CHF (congestive heart failure) I50.32 Metastatic renal cell carcinoma C64.9 Hypertension I10 Time Spent (min) 35 (3) Atrial fibrillation Atrial fibrillation type: unspecified Qualified Code(s): I48.91 - Unspecified atrial fibrillation
[2024-06-17 06:20] LABS: Hematocrit (blood only) 30.8 % (42.0-52.0); Hemoglobin 9.1 g/dl (14.0-18.0); Mean Corpuscular Hemoglobin 29.2 pg (25.0-34.0); Mean Corpuscular Hgb Conc 29.5 g/dL (32.0-36.0); Mean Corpuscular Volume 98.7 fL (80.0-100.0); Mean Platelet Volume 10.3 fL (9.4-12.4); Nucleated RBC # (auto) 0.02 K/uL (0.00-0.12); Nucleated RBC % (auto) 0.3 %; Platelet Count 113 K/uL (130-400); RDW Coefficient of Variation 24.8 % (11.5-14.5); RDW Standard Deviation 89.9 fL (36.4-46.3); Red Blood Count 3.12 M/uL (4.70-6.10); White Blood Count 7.45 K/ul (4.8-10.8)
[2024-06-17 06:45] LABS: Creatinine Clr Calc Pharmacy 23.1 ml/min; Potassium 4.8 mmol/L (3.5-5.1)
--- NOTE | 2024-06-17 08:59 | Nephrology Progress Note ---
Date of Service June 17, 2024 Assessment & Plan (1) End stage renal disease on dialysis: Plan: * Mr. Guadalupe wishes to continue w/HD. 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 Will provide next treatment in am (2) Anemia: (3) Renal cell carcinoma: (4) Quality of life palliative care encounter: Plan: * Mr. Guadalupe wants to continue dialysis treatments but does not want to escalate care. Palliative care is following. 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 Admission and Anticipated Discharge Date Admission Date: April 28, 2024 Subjective Mr. Guadalupe was evaluated in his hospital room this morning. He c/o weakness but voices no other medical concerns. Dialysis was completed yesterday for 2 hours w/ 1.5 L UF Review of Systems Constitutional: no fever Eyes: no problem reported Ear, Nose, Mouth, Throat: no problem reported Respiratory: no dyspnea Cardiovascular: no chest pain Gastrointestinal: no abdominal pain, no nausea, no vomiting and no diarrhea/loose stools Integumentary: no rash Physical Exam Constitutional: not in distress Eyes: PERRL, conjunctivae normal, anicteric sclerae ENMT: external ear and nose normal, oropharynx normal Neck: trachea midline, no thyromegaly (IJ TCC w/ clean dry dressing) Respiratory: normal respiratory effort Auscultation: lungs clear to auscultation bilaterally and + rales (L base) Cardiovascular: RRR, no murmur, no edema Rate/Rhythm: regular rate, regular rhythm, + tachycardic and + irregularly irregular Extremities: + edema (3+ peripheral edema) Gastrointestinal (Abdomen): normal bowel sounds, soft, nontender, no hepatosplenomegaly Musculoskeletal: Extremities: + cyanosis (and ischemic lesions involving toes of L foot) Skin: no rashes, warm and dry Neurologic: awake; not confused Speech / Cognition: normal speech and normal cognition Results & Data Vital Signs (Past 12 Hours) Vital Signs Temp Pulse Pulse Pulse Resp BP Pulse Ox 06/17/24 08:21 36.4 C L 98 H 18 98/63 L 95 06/17/24 07:50 88 20 100 06/17/24 04:08 75 16 98 O2 Del Method O2 Flow Rate FiO2 06/17/24 08:21 Nasal Cannula 4 06/17/24 07:50 Nasal Cannula 6 06/17/24 04:08 30 Laboratory Results Laboratory Results - last 24 hr 06/17/24 05:51 WBC 7.45 RBC 3.12 L Hgb 9.1 L Hct 30.8 L MCV 98.7 MCH 29.2 MCHC 29.5 L RDW Std Deviation 89.9 H RDW Coeff of Nick 24.8 H Plt Count 113 L MPV 10.3 Absolute Nucleated RBC 0.02 Nucleated RBC % (auto) 0.3 Sodium 134 L Potassium 4.8 Chloride 101 Carbon Dioxide 25 Anion Gap 8 BUN 42 H Creatinine 4.69 H* D Est Cr Clr Drug Dosing 23.1 eGFR 12.67 BUN/Creatinine Ratio 9.0 L Glucose 128 H Calcium 8.0 L PG Care Time/CCT Total # of Minutes Spent Total Time Spent with Patient: Total time spent is greater than 50% in coordination of care (as documented) at patient's floor/unit and/or counseling patient: Coding Level of Care Code 39177 SUB INP/OBS CARE 3/50MIN Diagnoses End stage renal disease on dialysis N18.6; Z99.2 Anemia D64.9 Renal cell carcinoma C64.9 Quality of life palliative care encounter Z51.5
--- NOTE | 2024-06-17 10:18 | Hospitalist Progress Note ---
Date of Service June 17, 2024 Assessment & Plan (1) PAD (peripheral artery disease): (2) Cardiac pacemaker: (3) Atrial fibrillation: (4) End stage renal disease on dialysis: (5) S/P TAVR (transcatheter aortic valve replacement): (6) Autoimmune hepatitis treated with steroids: (7) Chronic diastolic CHF (congestive heart failure): (8) Metastatic renal cell carcinoma: (9) Hypertension: Plan 68-year-old male with past medical history of ESRD on hemodialysis Friday, chronic diastolic congestive heart failure, aortic stenosis status post TAVR, atrial fibrillation, renal cell carcinoma with right nephrectomy and subsequent metastasis to left kidney on Opdivo therapy which has been complicated by immune hepatitis requiring steroid therapy, obesity, SARAH presents to the ED with bilateral lower extremity weakness and found to be positive for rhinovirus/enterovirus and also treated for pneumonia with complicated hospital course. Patient has been seen by palliative care and decision has been made by patient to continue with dialysis until June 24, 2024 which is his 49 anniversary and then he wants to stop dialysis and go on full comfort care and his wishes to in the hospital and not at home #End-stage renal disease on hemodialysis #Acute hypoxic respiratory failure secondary to volume overload/pulmonary edema and underlying pneumonia/rhinovirus/enterovirus infection #Acute on chronic diastolic congestive heart failure with preserved ejection fraction Patient was treated for pneumonia during hospital stay Nephrology is following the patient for dialysis: Plan is for him to get dialysis until June 24, 2024 at which point he will transition to comfort measures Palliative care team is following the patient Patient still wants to continue with hemodialysis as planned till june #Atrial fibrillation chronic, long-standing permanent a.fib followed by outside cardiology near [place] Early in admission had had poor rate control despite meto succ BID + cardizem CD 120mg HS. Intolerant of increase because of hypotension. Was poor candidate for amio w/ abn LFTs and autoimmune hepatitis, prior cardioversion in past not successful AV node ablation with permanent pacemaker insertion on 05/13/[address] Mitchell eventually had recurrent A-fib repeat ablation with Dr Kyle on 05/25/24 He is on anticoagulation with apixaban 2.5 mg p.o. twice daily #Autoimmune hepatitis #Thrombocytopenia #Chronic anemia, likely anemia of chronic kidney disease Patient is on a steroid taper He is currently on prednisone 10 mg daily until 06/09/2024 at which point he stops taper He was initially on PJP prophylaxis which has been discontinued since he is currently on prednisone less than 20 mg/day Patient underwent bone marrow biopsy for anemia and thrombocytopenia and biopsy from 05/24/2024 shows normocellular marrow with trilineage hematopoiesis, erythroid hyperplasia and some dyserythropoiesis, decreased iron stores. Dyserythropoiesis does not meet the criteria for diagnosis of MDS at this point. #Peripheral arterial disease Patient has poor circulation with gangrenous toes, it continues to get worse He wants to continue dialysis and then switch to comfort measures and at this point does not wish for any further interventions #Hypothyroidism Continue levothyroxine 200 mcg p.o. daily CODE STATUS: DNR/DNI: Palliative care team following patient. No escalation of care at this point. he wants to switch to comfort care only after 06/24 DVT prophylaxis: Patient on apixaban Care plan discussed with patient, nursing staff and updated at bedside, he wants to switch to comfort care only after 06/24 Admission and Anticipated Discharge Date Admission Date: April 28, 2024 Subjective patient seen and examined, at the bedside, no new changes Review of Systems Review of Systems: All systems reviewed are negative, apart from the ones contained in the history. Physical Exam Physical Exam: The patient is awake, alert and oriented 3, well developed and well nourished, normocephalic and atraumatic, lying in bed and in no acute distress. HEENT--PERRL, EOMI, mucous membranes and oropharynx mildly dry Neck--supple. No JVD. No bruits. Thyroid normal, trachea midline, no adenopathy. Heart--normal S1 and S2. No murmurs, rubs or gallops. Lungs--reduced air entry Abdomen--normal bowel sounds and soft. Extremities--cyanotic. pitting edema. Dermatologic--bruises Neurologic--cranial nerves II through XII grossly intact. Rheumatologic--reduced ROM Psychiatric--normal affect. Results & Data Results & Data Vital Signs (Past 12 Hours) Vital Signs Temp Pulse Pulse Pulse Resp BP Pulse Ox 06/17/24 08:21 97.5 F L 98 H 18 98/63 L 95 06/17/24 07:50 88 20 100 03/27/25 04:08 75 16 98 O2 Del Method O2 Flow Rate FiO2 06/17/24 08:21 Nasal Cannula 4 06/17/24 07:50 Nasal Cannula 6 06/17/24 04:08 30 PG Care Time/CCT Total # of Minutes Spent Total Time Spent with Patient: Total time spent is greater than 50% in coordination of care (as documented) at patient's floor/unit and/or counseling patient: Coding Level of Care Code 62490 SUB INP/OBS CARE 2/35MIN Diagnoses PAD (peripheral artery disease) I73.9 Cardiac pacemaker Z95.0 Atrial fibrillation I48.91 Atrial fibrillation type: unspecified End stage renal disease on dialysis N18.6; Z99.2 S/P TAVR (transcatheter aortic valve replacement) Z95.2 Autoimmune hepatitis treated with steroids K75.4 Chronic diastolic CHF (congestive heart failure) I50.32 Metastatic renal cell carcinoma C64.9 Hypertension I10 Time Spent (min) 35 (3) Atrial fibrillation Atrial fibrillation type: unspecified Qualified Code(s): I48.91 - Unspecified atrial fibrillation
[2024-06-17] MEDS: ALBUT/IPRATROP 3MG/0.5MG NEB 3 ML VIAL NEB PRN (11:17)
[2024-06-17] MEDS: ACETYLCYSTEINE 20% INHAL SOLN 4ML ***DISPENSED BY RESP. INH SCH (11:17)
--- NOTE | 2024-06-17 13:33 | Palliative Care Progress Note ---
Date of Service June 17, 2024 Assessment & Plan (1) Palliative care by specialist: Plan: Palliative care will continue to follow for ongoing GOC discussions and family support. (2) Counseling regarding goals of care: Plan: Met again with pt at bedside. His was present. Reviewed previous discussions, Pt/ have no further questions/concerns at present. Pt shared that he will continue HD through weekend and will want to revisit GOC nest week. (3) Quality of life palliative care encounter: Plan: pt states that he continues to tolerate HD well and still values his current GOC. (4) Cough productive of purulent sputum: Plan: Pt c/o cough productive for thick difficult to clear secretions that has been persistent for several days and is making sleep difficult. We discussed adding mucomyst to his nebs. Pt agreeable. Plan Continue current level of care with HD as indicated. Pt is hopeful to remain on HD and optimize health and cognitive function through June 24 to celebrate 49y of marriage with his . He shared that after that he will not pursue any further HD and "let nature take its course". Palliative care will follow loosely and be available for future ACP/GOC di scussions. At this time goals are clear. Please call with any questions or concerns regarding this consultation. Admission and Anticipated Discharge Date Admission Date: April 28, 2024 Subjective Assessed pt at bedside, he was awake and alert and denied any dyspnea or discomfort. He shared that he has a bothersome cough and thick secretions that he cannot seem to clear. was at bedside. Pt states that he will have HD tomorrow and "would like to chat about hospice next week". Review of Systems Review of Systems: All systems reviewed & are unremarkable except as noted in Subjective Physical Exam Physical Exam: The patient is awake, alert and oriented 3, well developed and well nourished, normocephalic and atraumatic, lying in bed and in no acute distress. HEENT--PERRL, EOMI, mucous membranes and oropharynx mildly dry Neck--supple. No JVD. No bruits. Thyroid normal, trachea midline, no adenopathy. Heart--normal S1 and S2. No murmurs, rubs or gallops. Lungs--clear bilaterally, no respiratory distress, no accessory muscle use. Abdomen--normal bowel sounds and soft. Extremities--no cyanosis or clubbing. pitting edema. Dermatologic--normal skin turgor, normal color, no abnormal lymph nodes, no rash. Neurologic--no focal deficits Psychiatric--normal affect. Results & Data Vital Signs (Past 12 Hours) Vital Signs Temp Pulse Pulse Pulse Resp BP Pulse Ox 06/17/24 11:17 81 20 100 06/17/24 10:33 93 06/17/24 08:21 36.4 C L 98 H 18 98/63 L 95 06/17/24 07:50 88 20 100 06/17/24 04:08 75 16 98 O2 Del Method O2 Flow Rate FiO2 06/17/24 11:17 Nasal Cannula 5 06/17/24 10:33 Room Air 06/17/24 08:21 Nasal Cannula 4 06/17/24 07:50 Nasal Cannula 6 06/17/24 04:08 30 Laboratory Results Abnormal lab results 06/17/24 Range/Units 05:51 RBC 3.12 L (4.70-6.10) M/uL Hgb 9.1 L (14.0-18.0) g/dl Hct 30.8 L (42.0-52.0) % MCHC 29.5 L (32.0-36.0) g/dL RDW Std Deviation 89.9 H (36.4-46.3) fL RDW Coeff of Nick 24.8 H (11.5-14.5) % Plt Count 113 L (130-400) K/uL Sodium 134 L (136-145) mmol/L BUN 42 H (6-23) mg/dl Creatinine 4.69 H* D (0.6-1.4) mg/dl BUN/Creatinine Ratio 9.0 L (10-20) Glucose 128 H (70-99(Fasting)) mg/dl Calcium 8.0 L (8.6-10.3) mg/dl Diagnostic Findings Head CT 04/28/24 16:47 EXAMINATION: Head CT without CLINICAL HISTORY: Weakness PRIORS: None TECHNIQUE: Contiguous axial images were obtained through the head without the use of intravenous contrast. Sagittal and coronal reformations are supplied. FINDINGS: Motion artifact degrades image quality. Moderate parenchymal volume loss noted. Quiñones-white differentiation is preserved. No edema or midline shift. No intra-axial or extra-axial hemorrhage. Ventricles are normal in size and configuration. Brainstem and cerebellum have a normal appearance. Calvarium unremarkable. Paranasal sinuses and mastoid air cells are well-pneumatized. Globes are intact. No retrobulbar abnormality. IMPRESSION: Moderate parenchymal volume loss with no CT evidence of an acute intracranial abnormality. Electronically signed by Indy 04-28-2024 6:25 PM Liver Ultrasound 05/10/24 00:00 EXAM: US liver CLINICAL HISTORY: hepatitis TECHNIQUE: Limited ultrasound of the liver and gallbladder was performed in greyscale and Doppler. Multiple images were obtained in transverse and longitudinal planes. COMPARISON: No prior studies are available for comparison. FINDINGS: Liver: Liver size: measures 17.9 cm. The liver appears enlarged in size with heterogeneous echotexture and slightly irregular borders. No evidence of focal lesions, cysts, or masses. Hepatic vasculature appears normal. Gallbladder: Gallbladder size: Gallbladder is visualized and not well distended at the time of scan with normal shape. A slight increase in gall bladder wall thickness measures 0.36 cm(which may be non-specific due to an undistended gall bladder) No gallstones or pericholecystic fluid were noted. No evidence of gallbladder wall edema or signs of acute cholecystitis. Biliary Tree: Common bile duct diameter: 0.36 cm. The common bile duct is within normal limits in caliber and not dilated. No evidence of choledocholithiasis or biliary obstruction. IMPRESSION: 1. Moderate hepatomegaly with heterogeneous parenchymal echo pattern and slightly irregular borders(parenchymal liver disease) for correlation with LFT. 2. Slight increase in gall bladder wall thickness (whoever better assesses with distended gall bladder will be better). Electronically signed by Scott Venegas 05-10-2024 02:18 AM Duplex Scan Lower Extremity Artery 05/22/24 07:00 EXAM: US arterial duplex LE LT CLINICAL HISTORY: Cold L foot, decreased pulses/cap refill TECHNIQUE: Ultrasound examination of the left lower extremity arteries was performed in real time and duplex. One or more of the following were performed- spectral analysis, resistive index, waveform analysis, and pulsed Doppler. COMPARISON: None. FINDINGS: Vessel Flow Pattern Left Peak Velocity Left (cm/sec) Common Femoral Artery (GROUP PROGRAM MANAGER) Tri 42 Deep Femoral Artery (DPA) MONO-BI 35 Superficial Femoral Artery (SFA) TRI 40-48 Popliteal Artery (POP A) Bi-marichuy 18 Posterior Tibial Artery (PATIENT REGISTRATION CLERK), proximal Bi-mono 21 PERONEAL ARTERY Ocean 18 Dorsalis Pedis Artery (DPA) Ocean 11.5 Multiple discrete calcific plaques were noted in the arteries. Damped monophasic waveform in the distal arteries. IMPRESSION: Multiple discrete calcific plaques were noted in the arteries and damped monophasic waveform in the distal arteries. Electronically signed by Scott Venegas 05-22-2024 08:13 AM Bone Marrow Biopsy w/ CT 05/24/24 08:00 CT guided bone marrow biopsy INDICATION: Thrombocytopenia PROCEDURE: Procedure and risks were explained. Informed consent was obtained. A final timeout was completed. The patient was placed prone in a decubitus position and the CT exam table. The right gluteal region was prepped and draped in sterile fashion. 1% lidocaine was utilized for skin anesthesia. Utilizing CT guidance, an 11-gauge bone biopsy needle was advanced into the right iliac bone. Multiple aspirates and one bone core was obtained and given to the lab. The needle was removed and Band-Aid applied. The patient tolerated the procedure well. Vital signs will be monitored postprocedure. IMPRESSION: Bone marrow biopsy as above. Performed, dictated, and signed by Venancio Mendes PA-C; to be co-signed by Dr. Alex Garcia. Electronically signed by: Alex Garcia M.D. 05/24/2024 2:28 PM Chest X-Ray 06/03/24 11:05 XR chest 1V portable CLINICAL HISTORY: follow up pulm edema COMPARISON STUDY: 05/29/2024 FINDINGS: Single view chest demonstrates some resolution of airspace opacities in the right upper lobe. Airspace opacity in the right lung base is unchanged. New air space opacity has developed in the left lung base. Cardiomegaly, pulmonary vascular congestion, and aortic arch ectasia are once again noted. Bilateral pleural effusions are present right greater than left. Double-lumen dialysis catheter in the mid superior vena cava. Unipolar left pacemaker electrode unchanged. IMPRESSION: Right upper lobe airspace opacity less pronounced. New left basilar airspace opacity has developed. Cardiomegaly, pulmonary vascular congestion, small bilateral effusion, and right basilar infiltrate unchanged. ACT 112: Negative or not required by law. Electronically signed by: Sridevi Saldana M.D. 06/03/2024 11:51 AM Medications Administered Current Inpatient Medications Acetaminophen (Acetaminophen 325 Mg Tab) 650 mg PO Q4H PRN PRN Reason: pain/fever Stop: 07/02/24 21:07 Last Admin: 06/16/24 20:39 Dose: 650 mg Acetylcysteine (Acetylcysteine 20% Inhal Soln 4ml Dispensed By Resp.) 5 ml INH BIDR GURU Stop: 07/17/24 10:59 Last Admin: 06/17/24 11:17 Dose: 5 ml Albuterol (Albuterol Hfa 8 Gm Inhaler) 2 puffs INH Q6H PRN PRN Reason: Dyspnea Stop: 07/08/24 21:59 Last Admin: 06/17/24 07:49 Dose: 2 puffs Albuterol (Albut/Ipratrop 3mg/0.5mg Neb 3 Ml Vial) 3 ml NEB BID PRN; Protocol PRN Reason: Shortness Of Breath Or Wheezing Stop: 07/17/24 11:11 Last Admin: 06/17/24 11:17 Dose: 3 ml Apixaban (Apixaban 2.5 Mg Tab) 2.5 mg PO BID GURU Stop: 07/02/24 23:55 Last Admin: 06/17/24 08:02 Dose: 2.5 mg Bisacodyl (Bisacodyl 5 Mg Tabec) 5 mg PO DAILY PRN PRN Reason: Constipation Stop: 07/07/24 18:16 Last Admin: 06/09/24 20:30 Dose: 5 mg Dextrose (Dextrose 50% 50 Ml Syringe) 25 - 50 ml IV UD PRN; Protocol PRN Reason: Hypoglycemia Protocol Stop: 06/30/24 08:11 Epoetin Ori (Epoetin Ori 10,000 Units/Ml Vial) 10,000 units IV ONE ONE Stop: 06/18/24 07:01 Glucagon (Glucagon For Inj 1 Mg Vial) 1 mg SQ UD PRN; Protocol PRN Reason: Hypoglycemia Protocol Stop: 06/30/24 08:11 Glucose (Glucose 40% Gel 15 Gm Tube) 15 - 30 gm PO UD PRN; Protocol PRN Reason: Hypoglycemia Protocol Stop: 07/02/24 08:11 Glucose (Glucose 10 Tab/Tube) 4 - 8 tab PO UD PRN; Protocol PRN Reason: Hypoglycemia Protocol Stop: 07/02/24 08:11 Sodium Chloride (Nss) 1,000 mls @ 0 mls/hr IV .Q0M PRN PRN Reason: For Hemodialysis Use ONLY Stop: 06/20/24 06:59 Sodium Chloride (Nss) 1,000 mls @ 0 mls/hr IV .Q0M PRN PRN Reason: For Hemodialysis Use ONLY Stop: 06/22/24 06:59 Sodium Chloride (Nss) 1,000 mls @ 0 mls/hr IV .Q0M PRN PRN Reason: For Hemodialysis Use ONLY Stop: 06/24/24 06:59 Levothyroxine Sodium (Levothyroxine Sodium 200 Mcg Tablet) 200 mcg PO DAILYBB [facility] Stop: 07/02/24 06:29 Last Admin: 06/17/24 06:00 Dose: 200 mcg Melatonin (Melatonin 3 Mg Tab) 3 mg PO HS PRN PRN Reason: Insomnia Stop: 07/02/24 21:07 Last Admin: 06/16/24 20:39 Dose: 3 mg Menthol (Cough Drop (Sugar Free) Mark 24 Mark/1 Box) 1 mark BUCCAL PRN PRN PRN Reason: Sore Throat Stop: 06/30/24 15:39 Miconazole Nitrate (Miconazole Nitrate Powder 85 Gm) 1 appln EXT PRN PRN PRN Reason: Affected Skin Folds Stop: 07/08/24 10:29 Midodrine (Midodrine Hcl 10 Mg Tab) 10 mg PO TID [facility] Stop: 07/02/24 21:07 Last Admin: 06/17/24 08:02 Dose: 10 mg Miscellaneous (Carbohydrates For Hypoglycemia ) 15 - 30 gm PO UD PRN PRN Reason: Hypoglycemia Protocol Stop: 07/02/24 08:11 Ondansetron HCl (Ondansetron Inj 2 Mg/Ml 2 Ml Vial) 4 mg IV Q6H PRN PRN Reason: Nausea Stop: 07/02/24 21:07 Last Admin: 05/25/24 13:45 Dose: 4 mg Pantoprazole Sodium (Pantoprazole 40 Mg Tab) 40 mg PO QAM [facility] Stop: 07/02/24 08:59 Last Admin: 06/17/24 08:02 Dose: 40 mg Polyethylene Glycol (Polyethylene (Miralax) 17 Gm Pack) 17 gm PO DAILY PRN PRN Reason: Constipation Stop: 07/02/24 21:07 Last Admin: 06/01/24 13:19 Dose: 17 gm PG Care Time/CCT Total # of Minutes Spent Total Time Spent with Patient: Total time spent is greater than 50% in coordination of care (as documented) at patient's floor/unit and/or counseling patient: Coding [place] [address] SUB INP/OBS CARE 2/35MIN Patient Type Established History Problem Focused Exam Problem Focused Medical Decision Making Low Complexity Diagnoses Palliative care by specialist Z51.5 Counseling regarding goals of care Z71.89 Quality of life palliative care encounter Z51.5 Cough productive of purulent sputum R05.8
[2024-06-18] MEDS ORDERED: SODIUM CHLORIDE 0.9% 1,000 ML IV PRN (07:00)
--- NOTE | 2024-06-18 08:58 | Nephrology Progress Note ---
Date of Service June 18, 2024 Assessment & Plan (1) End stage renal disease on dialysis: Plan: * Mr. Guadalupe wishes to continue w/HD. 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 Orders have been entered into EMR and HD RN notified (2) Anemia: (3) Renal cell carcinoma: (4) Quality of life palliative care encounter: Plan: * Mr. Guadalupe wants to continue dialysis treatments but does not want to escalate care. Palliative care is following. 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 Admission and Anticipated Discharge Date Admission Date: April 28, 2024 Subjective Mr. Guadalupe was evaluated in his hospital room this morning. He is agreeable to HD today for continued UF. He voiced no new medical concerns. Review of Systems Constitutional: no fever Eyes: no problem reported Ear, Nose, Mouth, Throat: no problem reported Respiratory: no dyspnea Cardiovascular: no chest pain Gastrointestinal: no abdominal pain, no nausea, no vomiting and no diarrhea/loose stools Integumentary: no rash Physical Exam Constitutional: not in distress Eyes: PERRL, conjunctivae normal, anicteric sclerae ENMT: external ear and nose normal, oropharynx normal Neck: trachea midline, no thyromegaly (IJ TCC w/ clean dry dressing) Respiratory: normal respiratory effort Auscultation: lungs clear to auscultation bilaterally and + rales (L base) Cardiovascular: RRR, no murmur, no edema Rate/Rhythm: regular rate, regular rhythm, + tachycardic and + irregularly irregular Extremities: + edema (3+ peripheral edema) Gastrointestinal (Abdomen): normal bowel sounds, soft, nontender, no he patosplenomegaly Musculoskeletal: Extremities: + cyanosis (and ischemic lesions involving toes of L foot) Skin: no rashes, warm and dry Neurologic: awake; not confused Speech / Cognition: normal speech and normal cognition Results & Data Vital Signs (Past 12 Hours) Vital Signs Temp Pulse Pulse Pulse Pulse Resp BP 06/18/24 07:40 35.8 C L 82 16 06/18/24 06:55 85 18 06/18/24 03:13 81 19 06/18/24 00:35 36.9 C 86 20 102/66 06/17/24 23:10 81 23 BP Pulse Ox O2 Del Method O2 Flow Rate FiO2 06/18/24 07:40 104/67 100 CPAP 06/18/24 06:55 95 Nasal Cannula 5 06/18/24 03:13 95 30 06/18/24 00:35 99 CPAP 7 06/17/24 23:10 96 30 PG Care Time/CCT Total # of Minutes Spent Total Time Spent with Patient: Total time spent is greater than 50% in coordination of care (as documented) at patient's floor/unit and/or counseling patient: Coding Level of Care Code 43300 SUB INP/OBS CARE 3/50MIN Diagnoses End stage renal disease on dialysis N18.6; Z99.2 Anemia D64.9 Renal cell carcinoma C64.9 Quality of life palliative care encounter Z51.5
[2024-06-18] MEDS: EPOETIN ALFA 10,000 UNITS/ML VIAL IV ONE (10:59)
--- NOTE | 2024-06-18 13:30 | Hospitalist Progress Note ---
Date of Service June 18, 2024 Assessment & Plan (1) PAD (peripheral artery disease): (2) Cardiac pacemaker: (3) Atrial fibrillation: (4) End stage renal disease on dialysis: (5) S/P TAVR (transcatheter aortic valve replacement): (6) Autoimmune hepatitis treated with steroids: (7) Chronic diastolic CHF (congestive heart failure): (8) Metastatic renal cell carcinoma: (9) Hypertension: Plan 68-year-old male with past medical history of ESRD on hemodialysis Friday, chronic diastolic congestive heart failure, aortic stenosis status post TAVR, atrial fibrillation, renal cell carcinoma with right nephrectomy and subsequent metastasis to left kidney on Opdivo therapy which has been complicated by immune hepatitis requiring steroid therapy, obesity, SARAH presents to the ED with bilateral lower extremity weakness and found to be positive for rhinovirus/enterovirus and also treated for pneumonia with complicated hospital course. Patient has been seen by palliative care and decision has been made by patient to continue with dialysis until June 24, 2024 which is his 47 anniversary and then he wants to stop dialysis and go on full comfort care and his wishes to in the hospital and not at home #End-stage renal disease on hemodialysis #Acute hypoxic respiratory failure secondary to volume overload/pulmonary edema and underlying pneumonia/rhinovirus/enterovirus infection #Acute on chronic diastolic congestive heart failure with preserved ejection fraction Nephrology is following the patient for dialysis: Plan is for him to get dialysis until June 24, 2024 at which point he will transition to comfort measures Palliative care team is following the patient Patient still wants to continue with hemodialysis as planned till june and will be made GENETIC TECHNOLOGIST afterwards #Atrial fibrillation chronic, long-standing permanent a.fib followed by outside cardiology near [place] Early in admission had had poor rate control despite meto succ BID + cardizem CD 120mg HS. Intolerant of increase because of hypotension. Was poor candidate for amio w/ abn LFTs and autoimmune hepatitis, prior cardioversion in past not successful AV node ablation with permanent pacemaker insertion on 05/13/[address] Mitchell eventually had recurrent A-fib repeat ablation with Dr Kyle on 05/25/24 He is on anticoagulation with apixaban 2.5 mg p.o. twice daily #Autoimmune hepatitis #Thrombocytopenia #Chronic anemia, likely anemia of chronic kidney disease Patient is on a steroid taper He is currently on prednisone 10 mg daily until 06/09/2024 at which point he stops taper He was initially on PJP prophylaxis which has been discontinued since he is currently on prednisone less than 20 mg/day Patient underwent bone marrow biopsy for anemia and thrombocytopenia and biopsy from 05/24/2024 shows normocellular marrow with trilineage hematopoiesis, erythroid hyperplasia and some dyserythropoiesis, decreased iron stores. Dyser ythropoiesis does not meet the criteria for diagnosis of MDS at this point. #Peripheral arterial disease Patient has poor circulation with gangrenous toes, it continues to get worse He wants to continue dialysis and then switch to comfort measures and at this point does not wish for any further interventions Foot wound Wound at the ankle pad wound care following #Hypothyroidism Continue levothyroxine 200 mcg p.o. daily CODE STATUS: DNR/DNI: Palliative care team following patient. No escalation of care at this point. he wants to switch to comfort care only after 06/24 DVT prophylaxis: Patient on apixaban Care plan discussed with patient, nursing staff and updated at bedside, he wants to switch to comfort care only after 06/24 Admission and Anticipated Discharge Date Admission Date: April 28, 2024 Subjective patient still wants to continue HD till 06/24 Review of Systems Review of Systems: All systems reviewed are negative, apart from the ones contained in the history. Physical Exam Physical Exam: The patient is awake, alert and oriented 3, well developed and well nourished, normocephalic and atraumatic, lying in bed and in no acute distress. HEENT--PERRL, EOMI, mucous membranes and oropharynx mildly dry Neck--supple. No JVD. No bruits. Thyroid normal, trachea midline, no adenopathy. Heart--normal S1 and S2. No murmurs, rubs or gallops. Lungs--reduced air entry Abdomen--normal bowel sounds and soft. Extremities--cyanotic. pitting edema. Dermatologic--bruises Neurologic--cranial nerves II through XII grossly intact. Rheumatologic--reduced ROM Psychiatric--normal affect. Results & Data Results & Data Vital Signs (Past 12 Hours) Vital Signs Temp Pulse Pulse Pulse Pulse Pulse Resp 06/18/24 12:44 96.3 F L 84 16 06/18/24 12:22 98.2 F 95 H 06/18/24 12:00 80 03/28/25 11:30 80 06/18/24 11:00 80 06/18/24 10:30 80 06/18/24 10:00 79 06/18/24 09:30 79 06/18/24 09:12 80 06/18/24 09:01 97.5 F L 83 06/18/24 08:02 06/18/24 07:40 96.4 F L 82 16 06/18/24 06:55 85 18 06/18/24 03:13 81 19 BP BP BP Pulse Ox O2 Del Method O2 Flow Rate FiO2 06/18/24 12:44 80/48 L 99 Nasal Cannula 4 06/18/24 12:22 102/52 L 06/18/24 12:00 72/48 L 06/18/24 11:30 85/58 L 06/18/24 11:00 74/55 L 06/18/24 10:30 82/54 L 06/18/24 10:00 101/69 06/18/24 09:30 117/62 06/18/24 09:12 129/68 06/18/24 09:01 06/18/24 08:02 Nasal Cannula, BiPAP 4 06/18/24 07:40 104/67 100 CPAP 06/18/24 06:55 95 Nasal Cannula 5 06/18/24 03:13 95 30 PG Care Time/CCT Total # of Minutes Spent Total Time Spent with Patient: Total time spent is greater than 50% in coordination of care (as documented) at patient's floor/unit and/or counseling patient: Coding Level of Care Code 87142 SUB INP/OBS CARE 2/35MIN Diagnoses PAD (peripheral artery disease) I73.9 Cardiac pacemaker Z95.0 Atrial fibrillation I48.91 Atrial fibrillation type: unspecified End stage renal disease on dialysis N18.6; Z99.2 S/P TAVR (transcatheter aortic valve replacement) Z95.2 Autoimmune hepatitis treated with steroids K75.4 Chronic diastolic CHF (congestive heart failure) I50.32 Metastatic renal cell carcinoma C64.9 Hypertension I10 Time Spent (min) 35 (3) Atrial fibrillation Atrial fibrillation type: unspecified Qualified Code(s): I48.91 - Unspecified atrial fibrillation
[2024-06-19 06:42] LABS: Hematocrit (blood only) 29.8 % (42.0-52.0); Hemoglobin 9.1 g/dl (14.0-18.0); Mean Corpuscular Hemoglobin 29.4 pg (25.0-34.0); Mean Corpuscular Hgb Conc 30.5 g/dL (32.0-36.0); Mean Corpuscular Volume 96.1 fL (80.0-100.0); Mean Platelet Volume 10.3 fL (9.4-12.4); Nucleated RBC # (auto) 0.04 K/uL (0.00-0.12); Nucleated RBC % (auto) 0.6 %; Platelet Count 137 K/uL (130-400); RDW Coefficient of Variation 23.8 % (11.5-14.5); RDW Standard Deviation 82.8 fL (36.4-46.3); White Blood Count 7.25 K/ul (4.8-10.8)
[2024-06-19 07:00] LABS: BUN Creatinine Ratio 9.3 (10-20); Creatinine Clr Calc Pharmacy 26.5 ml/min; Potassium 4.4 mmol/L (3.5-5.1)
--- NOTE | 2024-06-19 11:00 | Hospitalist Progress Note ---
Date of Service June 19, 2024 Assessment & Plan (1) PAD (peripheral artery disease): (2) Cardiac pacemaker: (3) Atrial fibrillation: (4) End stage renal disease on dialysis: (5) S/P TAVR (transcatheter aortic valve replacement): (6) Autoimmune hepatitis treated with steroids: (7) Chronic diastolic CHF (congestive heart failure): (8) Metastatic renal cell carcinoma: (9) Hypertension: Plan 68-year-old male with past medical history of ESRD on hemodialysis Friday, chronic diastolic congestive heart failure, aortic stenosis status post TAVR, atrial fibrillation, renal cell carcinoma with right nephrectomy and subsequent metastasis to left kidney on Opdivo therapy which has been complicated by immune hepatitis requiring steroid therapy, obesity, SARAH presents to the ED with bilateral lower extremity weakness and found to be positive for rhinovirus/enterovirus and also treated for pneumonia with complicated hospital course. Patient has been seen by palliative care and decision has been made by patient to continue with dialysis until June 24, 2024 which is his 49 anniversary and then he wants to stop dialysis and go on full comfort care and his wishes to in the hospital and not at home #End-stage renal disease on hemodialysis #Acute hypoxic respiratory failure secondary to volume overload/pulmonary edema and underlying pneumonia/rhinovirus/enterovirus infection #Acute on chronic diastolic congestive heart failure with preserved ejection fraction Nephrology is following the patient for dialysis: Plan is for him to get dialysis until June 24, 2024 at which point he will transition to comfort measures Palliative care team is following the patient Patient still wants to continue with hemodialysis as planned till june and will be made 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 Intolerant of increase because of hypotension. Was poor candidate for amio w/ abn LFTs and autoimmune hepatitis, prior cardioversion in past not successful AV node ablation with permanent pacemaker insertion on 05/13/[address] Mitchell eventually had recurrent A-fib repeat ablation with Dr Kyle on 05/25/24 He is on anticoagulation with apixaban 2.5 mg p.o. twice daily he plans to be Comfort Measures only after June 24 #Autoimmune hepatitis #Thrombocytopenia #Chronic anemia, likely anemia of chronic kidney disease Patient is on a steroid taper He is currently on prednisone 10 mg daily until 06/09/2024 at which point he stops taper He was initially on PJP prophylaxis which has been discontinued since he is currently on prednisone less than 20 mg/day Patient underwent bone marrow biopsy for anemia and thrombocytopenia and biopsy from 05/24/2024 shows normocellular marrow with trilineage hematopoiesis, erythroid hyperplasia and some dyserythropoiesis, decreased iron stores. Dyserythropoiesis does not meet the criteria for diagnosis of MDS at this point. #Peripheral arterial disease Patient has poor circulation with gangrenous toes, it continues to get worse He wants to continue dialysis and then switch to comfort measures and at this point does not wish for any further interventions Foot wound Wound at the ankle pad wound care following #Hypothyroidism Continue levothyroxine 200 mcg p.o. daily CODE STATUS: DNR/DNI: Palliative care team following patient. No escalation of care at this point. he wants to switch to comfort care only after 06/24 DVT prophylaxis: Patient on apixaban Care plan discussed with patient, nursing staff and updated at bedside, he wants to switch to comfort care only after 06/24 Admission and Anticipated Discharge Date Admission Date: April 28, 2024 Subjective patient still wants to continue HD till 06/24 Review of Systems Review of Systems: All systems reviewed are negative, apart from the ones contained in the history. Physical Exam Physical Exam: The patient is awake, alert and oriented 3, well developed and well nourished, normocephalic and atraumatic, lying in bed and in no acute distress. HEENT--PERRL, EOMI, mucous membranes and oropharynx mildly dry Neck--supple. No JVD. No bruits. Thyroid normal, trachea midline, no adenopathy. Heart--normal S1 and S2. No murmurs, rubs or gallops. Lungs--reduced air entry Abdomen--normal bowel sounds and soft. Extremities--cyanotic. pitting edema. Dermatologic--bruises Neurologic--cranial nerves II through XII grossly intact. Rheumatologic--reduced ROM Psychiatric--normal affect. Results & Data Results & Data Vital Signs (Past 12 Hours) Vital Signs Temp Pulse Pulse Resp BP Pulse Ox O2 Del Method 06/19/24 08:41 Nasal Cannula 06/19/24 07:40 97.4 F L 81 18 90/54 L 98 CPAP 06/19/24 07:08 88 20 97 BiPAP 06/19/24 03:02 79 20 97 O2 Flow Rate FiO2 06/19/24 08:41 6 06/19/24 07:40 06/19/24 07:08 30 06/19/24 03:02 30 PG Care Time/CCT Total # of Minutes Spent Total Time Spent with Patient: Total time spent is greater than 50% in coordination of care (as documented) at patient's floor/unit and/or counseling patient: Coding Level of Care Code 76405 SUB INP/OBS CARE 2/35MIN Diagnoses PAD (peripheral artery disease) I73.9 Cardiac pacemaker Z95.0 Atrial fibrillation I48.91 Atrial fibrillation type: unspecified End stage renal disease on dialysis N18.6; Z99.2 S/P TAVR (transcatheter aortic valve replacement) Z95.2 Autoimmune hepatitis treated with steroids K75.4 Chronic diastolic CHF (congestive heart failure) I50.32 Metastatic renal cell carcinoma C64.9 Hypertension I10 Time Spent (min) 35 (3) Atrial fibrillation Atrial fibrillation type: unspecified Qualified Code(s): I48.91 - Unspecified atrial fibrillation
--- NOTE | 2024-06-19 11:59 | Nephrology Progress Note ---
Date of Service June 19, 2024 Assessment & Plan (1) End stage renal disease on dialysis: Plan: * Mr. Guadalupe wishes to continue w/HD. His stated desire is to celebrate his wedding anniversary 06/24/24 and then transition to EXTENSION FORESTER * Completed treatment yesterday with adequate UF and clearance. * Next HD planned for Friday. (2) Anemia: (3) Renal cell carcinoma: (4) Quality of life palliative care encounter: Plan: * Mr. Guadalupe wants to continue dialysis treatments but does not want to escalate care. Palliative care is following. Plan is to transition to EXTENS[employer] FORESTER following his wedding anniversary 06/24/24. Admission and Anticipated Discharge Date Admission Date: April 28, 2024 Subjective No acute events overnight. Don feels reasonably well today. Tolerated HD yesterday without complications. Seen and evaluated with his at the bedside this AM. Review of Systems Review of Systems: All systems reviewed & are unremarkable except as noted in HPI & below Physical Exam Constitutional: + frail appearing; no acute distress Eyes: + anicteric sclerae ENMT: Mouth: + dry oral mucous membranes Neck: normal visual inspection and trachea midline Respiratory: normal respiratory effort; no labored breathing Auscultation: lungs clear to auscultation bilaterally (anteriorly) Cardiovascular: Rate/Rhythm: regular rate and regular rhythm Heart Sounds: normal S1 and normal S2 Extremities: + edema and + AV fistula (thrombosed) Musculoskeletal: Extremities: no cyanosis and no clubbing Skin: normal turgor; no jaundice Neurologic: Motor/Sensory: no tremor and no asterixis Psychiatric: Orientation: alert and oriented x 3 Results & Data Vital Signs (Past 12 Hours) Vital Signs Temp Pulse Pulse Resp BP Pulse Ox O2 Del Method 06/19/24 08:41 Nasal Cannula 06/19/24 07:40 36.3 C L 81 18 90/54 L 98 CPAP 06/19/24 07:08 88 20 97 BiPAP 06/19/24 03:02 79 20 97 O2 Flow Rate FiO2 06/19/24 08:41 6 06/19/24 07:40 06/19/24 07:08 30 06/19/24 03:02 30 Laboratory Results Laboratory Results - last 24 hr 06/19/24 06:21 WBC 7.25 RBC 3.10 L Hgb 9.1 L Hct 29.8 L MCV 96.1 MCH 29.4 MCHC 30.5 L RDW Std Deviation 82.8 H RDW Coeff of Nick 23.8 H Plt Count 137 MPV 10.3 Absolute Nucleated RBC 0.04 Nucleated RBC % (auto) 0.6 Sodium 133 L Potassium 4.4 Chloride 100 Carbon Dioxide 24 Anion Gap 9 BUN 38 H Creatinine 4.09 H Est Cr Clr Drug Dosing 26.5 eGFR 14.94 BUN/Creatinine Ratio 9.3 L Glucose 128 H Calcium 8.0 L PG Care Time/CCT Total # of Minutes Spent Total Time Spent with Patient: Total time spent is greater than 50% in coordination of care (as documented) at patient's floor/unit and/or counseling patient: Coding Level of Care Code 79441 SUB INP/OBS CARE 3/50MIN Diagnoses End stage renal disease on dialysis N18.6; Z99.2 Anemia D64.9 Renal cell carcinoma C64.9 Quality of life palliative care encounter Z51.5
--- NOTE | 2024-06-20 10:21 | Hospitalist Progress Note ---
Date of Service June 20, 2024 Assessment & Plan (1) PAD (peripheral artery disease): (2) Cardiac pacemaker: (3) Atrial fibrillation: (4) End stage renal disease on dialysis: (5) S/P TAVR (transcatheter aortic valve replacement): (6) Autoimmune hepatitis treated with steroids: (7) Chronic diastolic CHF (congestive heart failure): (8) Metastatic renal cell carcinoma: (9) Hypertension: Plan 68-year-old male with past medical history of ESRD on hemodialysis Friday, chronic diastolic congestive heart failure, aortic stenosis status post TAVR, atrial fibrillation, renal cell carcinoma with right nephrectomy and subsequent metastasis to left kidney on Opdivo therapy which has been complicated by immune hepatitis requiring steroid therapy, obesity, SARAH presents to the ED with bilateral lower extremity weakness and found to be positive for rhinovirus/enterovirus and also treated for pneumonia with complicated hospital course. Patient has been seen by palliative care and decision has been made by patient to continue with dialysis until June 24, 2024 which is his 49 anniversary and then he wants to stop dialysis and go on full comfort care and his wishes to in the hospital and not at home #End-stage renal disease on hemodialysis #Acute hypoxic respiratory failure secondary to volume overload/pulmonary edema and underlying pneumonia/rhinovirus/enterovirus infection #Acute on chronic diastolic congestive heart failure with preserved ejection fraction Nephrology is following the patient for dialysis: Plan is for him to get dialysis until June 24, 2024 at which point he will transition to comfort measures Palliative care team is following the patient Patient still wants to continue with hemodialysis as planned till june and 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 Intolerant of increase because of hypotension. Was poor candidate for amio w/ abn LFTs and autoimmune hepatitis, prior cardioversion in past not successful AV node ablation with permanent pacemaker insertion on 05/13/[address] Mitchell eventually had recurrent A-fib repeat ablation with Dr Kyle on 05/25/24 He is on anticoagulation with apixaban 2.5 mg p.o. twice daily he plans to be Comfort Measures only after June 24 #Autoimmune hepatitis #Thrombocytopenia #Chronic anemia, likely anemia of chronic kidney disease Patient is on a steroid taper He is currently on prednisone 10 mg daily until 06/09/2024 at which point he stops taper He was initially on PJP prophylaxis which has been discontinued since he is currently on prednisone less than 20 mg/day Patient underwent bone marrow biopsy for anemia and thrombocytopenia and biopsy from 05/24/2024 shows normocellular marrow with trilineage hematopoiesis, erythroid hyperplasia and some dyserythropoiesis, decreased iron stores. Dyserythropoiesis does not meet the criteria for diagnosis of MDS at this point. #Peripheral arterial disease Patient has poor circulation with gangrenous toes, it continues to get worse He wants to continue dialysis and then switch to comfort measures and at this point does not wish for any further interventions Foot wound Wound at the ankle pad wound care following #Hypothyroidism Continue levothyroxine 200 mcg p.o. daily CODE STATUS: DNR/DNI: Palliative care team following patient. No escalation of care at this point. he wants to switch to comfort care only after 06/24 DVT prophylaxis: Patient on apixaban Care plan discussed with patient, nursing staff and updated at bedside, he wants to switch to comfort care only after 06/24 Admission and Anticipated Discharge Date Admission Date: April 28, 2024 Subjective Patient seen and examined, no new complaints, his condition is the same, he denies dialysis on Friday Review of Systems Review of Systems: All systems reviewed are negative, apart from the ones contained in the history. Physical Exam Physical Exam: The patient is awake, alert and oriented 3, well developed and well nourished, normocephalic and atraumatic, lying in bed and in no acute distress. HEENT--PERRL, EOMI, mucous membranes and oropharynx mildly dry Neck--supple. No JVD. No bruits. Thyroid normal, trachea midline, no adenopathy. Heart--normal S1 and S2. No murmurs, rubs or gallops. Lungs--reduced air entry Abdomen--normal bowel sounds and soft. Extremities--cyanotic. pitting edema. Dermatologic--bruises Neurologic--cranial nerves II through XII grossly intact. Rheumatologic--reduced ROM Psychiatric--normal affect. Results & Data Results & Data Vital Signs (Past 12 Hours) Vital Signs Temp Pulse Pulse Resp BP Pulse Ox O2 Del Method 06/20/24 09:49 Nasal Cannula, BiPAP 06/20/24 09:28 97.8 F 80 16 95/60 L 97 Nasal Cannula 06/20/24 07:02 81 18 97 BiPAP 06/20/24 03:02 82 16 95 06/19/24 22:37 82 18 94 O2 Flow Rate FiO2 06/20/24 09:49 4.5 06/20/24 09:28 4 06/20/24 07:02 30 06/20/24 03:02 30 06/19/24 22:37 30 PG Care Time/CCT Total # of Minutes Spent Total Time Spent with Patient: Total time spent is greater than 50% in coordination of care (as documented) at patient's floor/unit and/or counseling patient: Coding Level of Care Code 66883 SUB INP/OBS CARE 2/35MIN Diagnoses PAD (peripheral artery disease) I73.9 Cardiac pacemaker Z95.0 Atrial fibrillation I48.91 Atrial fibrillation type: unspecified End stage renal disease on dialysis N18.6; Z99.2 S/P TAVR (transcatheter aortic valve replacement) Z95.2 Autoimmune hepatitis treated with steroids K75.4 Chronic diastolic CHF (congestive heart failure) I50.32 Metastatic renal cell carcinoma C64.9 Hypertension I10 Time Spent (min) 35 (3) Atrial fibrillation Atrial fibrillation type: unspecified Qualified Code(s): I48.91 - Unspecified atrial fibrillation
--- NOTE | 2024-06-20 13:34 | Nephrology Progress Note ---
Date of Service June 20, 2024 Assessment & Plan (1) End stage renal disease on dialysis: Plan: * Mr. Guadalupe wishes to continue w/HD. His stated desire is to celebrate his wedding anniversary 06/24/24 and then transition to EVIDENCE CUSTODIAN * Orders for HD tomorrow entered into the EHR and reviewed with the entertainer & comic (2) Anemia: (3) Renal cell carcinoma: (4) Quality of life palliative care encounter: Plan: * Mr. Guadalupe wants to continue dialysis treatments but does not want to escalate care. Palliative care is following. Plan is to transition to EVIDENCE CUSTODIAN following his wedding anniversary 06/24/24. Admission and Anticipated Discharge Date Admission Date: April 28, 2024 Subjective No acute events overnight. Rodolfo was seen and evaluated with his family at the bedside this AM. He feels well. Weakness persists. Review of Systems Review of Systems: All systems reviewed & are unremarkable except as noted in HPI & below Physical Exam Constitutional: WD/WN, vitals as above Results & Data Vital Signs (Past 12 Hours) Vital Signs Temp Pulse Pulse Resp BP Pulse Ox O2 Del Method 06/20/24 09:49 Nasal Cannula, BiPAP 06/20/24 09:28 36.6 C 80 16 95/60 L 97 Nasal Cannula 06/20/24 07:02 81 18 97 BiPAP 06/20/24 03:02 82 16 95 O2 Flow Rate FiO2 06/20/24 09:49 4.5 06/20/24 09:28 4 06/20/24 07:02 30 06/20/24 03:02 30 PG Care Time/CCT Total # of Minutes Spent Total Time Spent with Patient: Total time spent is greater than 50% in coordination of care (as documented) at patient's floor/unit and/or counseling patient: Coding Level of Care Code 41943 SUB INP/OBS CARE 2/35MIN Diagnoses End stage renal disease on dialysis N18.6; Z99.2 Anemia D64.9 Renal cell carcinoma C64.9 Quality of life palliative care encounter Z51.5
[2024-06-21 06:48] LABS: Albumin Level 2.2 gm/dl (3.4-5.0); BUN Creatinine Ratio 9.3 (10-20); Calcium 8.2 mg/dl (8.6-10.3); Creatinine Clr Calc Pharmacy 19.7 ml/min; Phosphorus 7.9 mg/dl (2.5-4.9); Potassium 5.1 mmol/L (3.5-5.1)
--- NOTE | 2024-06-21 10:08 | Nephrology Progress Note ---
Date of Service June 21, 2024 Assessment & Plan (1) End stage renal disease on dialysis: (2) Anemia: (3) Renal cell carcinoma: (4) Acute pulmonary edema: (5) Weakness: Plan 68-year-old gentleman with end-stage kidney disease with solitary kidney and hypertensive nephrosclerosis, Started on hemodialysis after having had tunneled dialysis catheter on 04/16/2024. He was admitted with generalized weakness, pulmonary congestion and significant volume overload and over last few days had UF challenge and more than 20 kg weight loss. Had A-fib with RVR and had AV maggie ablation and pacemaker placement on 05/13/2024. Had second AV maggie ablation 2 weeks ago. Has been having difficulty tolerating dialysis with minimum UF, low blood pressure and not able to get out of bed or had any physical therapy. Mr. Guadalupe decided to continue dialysis until 06/24/24 ( his wedding anniversary), then switched to comfort care. --tolerating dialysis --Midodrine 10 mg prior to dialysis --Dose medications for less than 10. Admission and Anticipated Discharge Date Admission Date: April 28, 2024 Subjective Tiny was seen and evaluated during HD this morning. He reports generally feeling about the same. Blood pressure staying better today, tolerating UF goal of 2.5 L. Review of Systems Review of Systems: All systems reviewed & are unremarkable except as noted in Subjective Physical Exam Constitutional: WD/WN, vitals as above + ill appearing; no acute distress Respiratory: Auscultation: + diminished lung sounds Cardiovascular: Rate/Rhythm: regular rate and regular rhythm Heart Sounds: normal S1 and normal S2 Extremities: + edema (2 to 3 + b/l LE edema), + vascular access device (Rt IJ TDC) and + AV fistula (Rt IJ TDC) Skin: + turgor decreased, + lesion, + skin atr ophy and + ecchymosis left foot ischemic toes Neurologic: no focal motor deficits Psychiatric: Orientation: alert and oriented x 3 Results & Data Vital Signs (Past 12 Hours) Vital Signs Temp Pulse Pulse Pulse Resp BP Pulse Ox 06/21/24 07:39 36.4 C L 80 21 96/66 L 100 06/21/24 07:38 06/21/24 07:09 77 20 95 06/21/24 07:08 77 20 95 06/21/24 02:45 83 27 H 93 06/20/24 22:06 102 H 33 H 94 O2 Del Method O2 Flow Rate FiO2 06/21/24 07:39 CPAP 4 06/21/24 07:38 Nasal Cannula 5 06/21/24 07:09 30 06/21/24 07:08 BiPAP 30 06/21/24 02:45 30 06/20/24 22:06 30 PG Care Time/CCT Total # of Minutes Spent Total Time Spent with Patient: Total time spent is greater than 50% in coordination of care (as documented) at patient's floor/unit and/or counseling patient: Coding Level of Care Code 79517 SUB INP/OBS CARE 04/17MIN Diagnoses End stage renal disease on dialysis N18.6; Z99.2 Anemia D64.9 Renal cell carcinoma C64.9 Acute pulmonary edema J81.0 Weakness R53.1
--- NOTE | 2024-06-21 10:09 | Hospitalist Progress Note ---
Date of Service June 21, 2024 Assessment & Plan (1) PAD (peripheral artery disease): (2) Cardiac pacemaker: (3) Atrial fibrillation: (4) End stage renal disease on dialysis: (5) S/P TAVR (transcatheter aortic valve replacement): (6) Autoimmune hepatitis treated with steroids: (7) Chronic diastolic CHF (congestive heart failure): (8) Metastatic renal cell carcinoma: (9) Hypertension: Plan 68-year-old male with past medical history of ESRD on hemodialysis Friday, chronic diastolic congestive heart failure, aortic stenosis status post TAVR, atrial fibrillation, renal cell carcinoma with right nephrectomy and subsequent metastasis to left kidney on Opdivo therapy which has been complicated by immune hepatitis requiring steroid therapy, obesity, SARAH presents to the ED with bilateral lower extremity weakness and found to be positive for rhinovirus/enterovirus and also treated for pneumonia with complicated hospital course. Patient has been seen by palliative care and decision has been made by patient to continue with dialysis until June 24, 2024 which is his 47 anniversary and then he wants to stop dialysis and go on full comfort care and his wishes to in the hospital and not at home #End-stage renal disease on hemodialysis #Acute hypoxic respiratory failure secondary to volume overload/pulmonary edema and underlying pneumonia/rhinovirus/enterovirus infection #Acute on chronic diastolic congestive heart failure with preserved ejection fraction Nephrology is following the patient for dialysis: Plan is for him to get dialysis until June 24, 2024 at which point he will transition to comfort measures Palliative care team is following the patient Patient still wants to continue with hemodialysis as planned till june and will be made STUNT MAN afterwards #Atrial fibrillation chronic, long-standing permanent a.fib followed by outside cardiology near [place] Early in admission had had poor rate control despite meto succ BID + cardizem CD 120mg HS. Intolerant of increase because of hypotension. Was poor candidate for amio w/ abn LFTs and autoimmune hepatitis, prior cardioversion in past not successful AV node ablation with permanent pacemaker insertion on 05/13/[address] Mitchell eventually had recurrent A-fib repeat ablation with Dr Kyle on 05/25/24 He is on anticoagulation with apixaban 2.5 mg p.o. twice daily he plans to be Comfort Measures only after June 24 #Autoimmune hepatitis #Thrombocytopenia #Chronic anemia, likely anemia of chronic kidney disease Patient is on a steroid taper He is currently on prednisone 10 mg daily until 06/09/2024 at which point he stops taper He was initially on PJP prophylaxis which has been discontinued since he is currently on prednisone less than 20 mg/day Patient underwent bone marrow biopsy for anemia and thrombocytopenia and biopsy from 05/24/2024 shows normocellular marrow with trilineage hematopoiesis, erythroid hyperplasia and some dyserythropoiesis, decreased iron stores. Dyserythropoiesis does not meet the criteria for diagnosis of MDS at this point. #Peripheral arterial disease Patient has poor circulation with gangrenous toes, it continues to get worse He wants to continue dialysis and then switch to comfort measures and at this point does not wish for any further interventions Foot wound Wound at the ankle pad wound care following #Hypothyroidism Continue levothyroxine 200 mcg p.o. daily CODE STATUS: DNR/DNI: Palliative care team following patient. No escalation of care at this point. he wants to switch to comfort care only after 06/24 DVT prophylaxis: Patient on apixaban Care plan discussed with patient, nursing staff and updated at bedside, he wants to switch to comfort care only after / Admission and Anticipated Discharge Date Admission Date: April 28, 2024 Subjective plan is for another HD session today Review of Systems Review of Systems: All systems reviewed are negative, apart from the ones contained in the history. Physical Exam Physical Exam: The patient is awake, alert and oriented 3, morbidly obese, lying in bed and in no acute distress. HEENT--PERRL, EOMI, mucous membranes and oropharynx mildly dry Neck--supple. No JVD. No bruits. Thyroid normal, trachea midline, no adenopathy. Heart--normal S1 and S2. No murmurs, rubs or gallops. Lungs--reduced air entry Abdomen--normal bowel sounds and soft. Extremities--cyanotic. pitting edema. Dermatologic--bruises Neurologic--cranial nerves II through XII grossly intact. Rheumatologic--reduced ROM Psychiatric--normal affect. Results & Data Results & Data Vital Signs (Past 12 Hours) Vital Signs Temp Pulse Pulse Pulse Resp BP Pulse Ox 06/21/24 07:39 97.5 F L 80 21 96/66 L 100 06/21/24 07:38 06/21/24 07:09 77 20 95 06/21/24 07:08 77 20 95 06/21/24 02:45 83 27 H 93 O2 Del Method O2 Flow Rate FiO2 06/21/24 07:39 CPAP 4 06/21/24 07:38 Nasal Cannula 5 06/21/24 07:09 30 06/21/24 07:08 BiPAP 30 06/21/24 02:45 30 PG Care Time/CCT Total # of Minutes Spent Total Time Spent with Patient: Total time spent is greater than 50% in coordination of care (as documented) at patient's floor/unit and/or counseling patient: Coding Level of Care Code 56544 SUB INP/OBS CARE 2/35MIN Diagnoses PAD (peripheral artery disease) I73.9 Cardiac pacemaker Z95.0 Atrial fibrillation I48.91 Atrial fibrillation type: unspecified End stage renal disease on dialysis N18.6; Z99.2 S/P TAVR (transcatheter aortic valve replacement) Z95.2 Autoimmune hepatitis treated with steroids K75.4 Chronic diastolic CHF (congestive heart failure) I50.32 Metastatic renal cell carcinoma C64.9 Hypertension I10 Time Spent (min) 35 (3) Atrial fibrillation Atrial fibrillation type: unspecified Qualified Code(s): I48.91 - Unspecified atrial fibrillation
--- NOTE | 2024-06-22 09:33 | Hospitalist Progress Note ---
Date of Service June 22, 2024 Assessment & Plan (1) PAD (peripheral artery disease): (2) Cardiac pacemaker: (3) Atrial fibrillation: (4) End stage renal disease on dialysis: (5) S/P TAVR (transcatheter aortic valve replacement): (6) Autoimmune hepatitis treated with steroids: (7) Chronic diastolic CHF (congestive heart failure): (8) Metastatic renal cell carcinoma: (9) Hypertension: Plan 68-year-old male with past medical history of ESRD on hemodialysis Friday, chronic diastolic congestive heart failure, aortic stenosis status post TAVR, atrial fibrillation, renal cell carcinoma with right nephrectomy and subsequent metastasis to left kidney on Opdivo therapy which has been complicated by immune hepatitis requiring steroid therapy, obesity, SARAH presents to the ED with bilateral lower extremity weakness and found to be positive for rhinovirus/enterovirus and also treated for pneumonia with complicated hospital course. Patient has been seen by palliative care and decision has been made by patient to continue with dialysis until June 24, 2024 which is his 47 anniversary and then he wants to stop dialysis and go on full comfort care and his wishes to in the hospital and not at home #End-stage renal disease on hemodialysis #Acute hypoxic respiratory failure secondary to volume overload/pulmonary edema and underlying pneumonia/rhinovirus/enterovirus infection #Acute on chronic diastolic congestive heart failure with preserved ejection fraction Nephrology is following the patient for dialysis: Plan is for him to get dialysis until June 24, 2024 at which point he will transition to comfort measures Palliative care team is following the patient Patient still wants to continue with hemodialysis as planned till june and will be made [employer] afterwards #Atrial fibrillation chronic, long-standing permanent a.fib followed by outside cardiology near [place] Early in admission had had poor rate control despite meto succ BID + cardizem CD 120mg HS. Intolerant of increase because of hypotension. Was poor candidate for amio w/ abn LFTs and autoimmune hepatitis, prior cardioversion in past not successful AV node ablation with permanent pacemaker insertion on 05/13/[address] Mitchell eventually had recurrent A-fib repeat ablation with Dr Kyle on 05/25/24 He is on anticoagulation with apixaban 2.5 mg p.o. twice daily he plans to be Comfort Measures only after June 24 #Autoimmune hepatitis #Thrombocytopenia #Chronic anemia, likely anemia of chronic kidney disease Patient is on a steroid taper He is currently on prednisone 10 mg daily until 06/09/2024 at which point he stops taper He was initially on PJP prophylaxis which has been discontinued since he is currently on prednisone less than 20 mg/day Patient underwent bone marrow biopsy for anemia and thrombocytopenia and biopsy from 05/24/2024 shows normocellular marrow with trilineage hematopoiesis, erythroid hyperplasia and some dyserythropoiesis, decreased iron stores. Dyserythropoiesis does not meet the criteria for diagnosis of MDS at this point. #Peripheral arterial disease Patient has poor circulation with gangrenous toes, it continues to get worse He wants to continue dialysis and then switch to comfort measures and at this point does not wish for any further interventions Foot wound Wound at the ankle pad wound care following #Hypothyroidism Continue levothyroxine 200 mcg p.o. daily CODE STATUS: DNR/DNI: Palliative care team following patient. No escalation of care at this point. he wants to switch to comfort care only after 06/24 DVT prophylaxis: Patient on apixaban Care plan discussed with patient, nursing staff and updated at bedside, he wants to switch to comfort care only after 06/24 Admission and Anticipated Discharge Date Admission Date: April 28, 2024 Subjective plan is for another HD session today Review of Systems Review of Systems: All systems reviewed are negative, apart from the ones contained in the history. Physical Exam Physical Exam: patient is awake, alert and oriented 3, morbidly obese, lying in bed and in no acute distress. HEENT--PERRL, EOMI, mucous membranes and oropharynx mildly dry Neck--supple. No JVD. No bruits. Thyroid normal, trachea midline, no adenopathy. Heart--normal S1 and S2. No murmurs, rubs or gallops. Lungs--reduced air entry Abdomen--normal bowel sounds and soft. Extremities--cyanotic. pitting edema. Dermatologic--bruises Neurologic--cranial nerves II through XII grossly intact. Rheumatologic--reduced ROM Psychiatric--normal affect. Results & Data Results & Data Vital Signs (Past 12 Hours) Vital Signs Temp Pulse Pulse Pulse Resp BP Pulse Ox 06/22/24 07:51 36.4 C L 83 16 118/57 L 96 06/22/24 07:11 90 17 98 06/22/24 07:11 90 17 98 06/22/24 02:45 70 17 98 06/21/24 22:30 66 19 99 O2 Del Method FiO2 06/22/24 07:51 BiPAP 06/22/24 07:11 30 06/22/24 07:11 BiPAP 30 06/22/24 02:45 30 06/21/24 22:30 30 PG Care Time/CCT Total # of Minutes Spent Total Time Spent with Patient: Total time spent is greater than 50% in coordination of care (as documented) at patient's floor/unit and/or counseling patient: Coding Level of Care Code 81852 SUB INP/OBS CARE 2MIN Diagnoses PAD (peripheral artery disease) I73.9 Cardiac pacemaker Z95.0 Atrial fibrillation I48.91 Atrial fibrillation type: unspecified End stage renal disease on dialysis N18.6; Z99.2 S/P TAVR (transcatheter aortic valve replacement) Z95.2 Autoimmune hepatitis treated with steroids K75.4 Chronic diastolic CHF (congestive heart failure) I50.32 Metastatic renal cell carcinoma C64.9 Hypertension I10 (3) Atrial fibrillation Atrial fibrillation type: unspecified Qualified Code(s): I48.91 - Unspecified atrial fibrillation
--- NOTE | 2024-06-22 09:56 | Nephrology Progress Note ---
Date of Service June 22, 2024 Assessment & Plan (1) End stage renal disease on dialysis: (2) Anemia: (3) Renal cell carcinoma: (4) Acute pulmonary edema: (5) Weakness: Plan 68-year-old gentleman with end-stage kidney disease with solitary kidney and hypertensive nephrosclerosis, Started on hemodialysis after having had tunneled dialysis catheter on 04/16/2024. He was admitted with generalized weakness, pulmonary congestion and significant volume overload and over last few days had UF challenge and more than 20 kg weight loss. Had A-fib with RVR and had AV maggie ablation and pacemaker placement on 05/13/2024. Had second AV maggie ablation 2 weeks ago. Has been having difficulty tolerating dialysis with minimum UF, low blood pressure and not able to get out of bed or had any physical therapy. Mr. Guadalupe decided to continue dialysis until 06/24/24 ( his wedding anniversary), then switched to comfort care. Had dialysis yesterday, tolerated better, had 2.1 L UF. Blood pressure relatively stable today. Overall reports otherwise feeling well. --plan for dialysis tomorrow --Midodrine 10 mg prior to dialysis --Dose medications for less than 10. Admission and Anticipated Discharge Date Admission Date: April 28, 2024 Ana Gibson was seen and evaluated this morning. He reports feeling well this morning, slept well overnight. Tolerated dialysis better yesterday had 2.1 L you are blood pressure was better, systolic blood pressure most of the time stayed about 110. Review of Systems Review of Systems: Detailed review of system was done and pertinent positives and negatives are mentioned above. Physical Exam Constitutional: WD/WN, vitals as above + ill appearing; no acute distress Eyes: + anicteric sclerae Neck: normal visual inspection Respiratory: Auscultation: + diminished lung sounds Cardiovascular: Rate/Rhythm: regular rate and regular rhythm Heart Sounds: normal S1 and normal S2 Extremities: + edema (2 to 3 + b/l LE edema) and + vascular access device (Rt IJ TDC) Skin: + turgor decreased, + lesion, + skin atr ophy and + ecchymosis Neurologic: no focal motor deficits and not confused Psychiatric: Orientation: alert and oriented x 3 Results & Data Vital Signs (Past 12 Hours) Vital Signs Temp Pulse Pulse Pulse Resp BP Pulse Ox 06/22/24 07:51 36.4 C L 83 16 118/57 L 96 06/22/24 07:11 90 17 98 06/22/24 07:11 90 17 98 06/22/24 02:45 70 17 98 06/21/24 22:30 66 19 99 O2 Del Method FiO2 06/22/24 07:51 BiPAP 06/22/24 07:11 30 06/22/24 07:11 BiPAP 30 06/22/24 02:45 30 06/21/24 22:30 30 PG Care Time/CCT Total # of Minutes Spent Total Time Spent with Patient: Total time spent is greater than 50% in coordination of care (as documented) at patient's floor/unit and/or counseling patient: Coding Level of Care Code 56925 SUB INP/OBS CARE 2/35MIN Diagnoses End stage renal disease on dialysis N18.6; Z99.2 Anemia D64.9 Renal cell carcinoma C64.9 Acute pulmonary edema J81.0 Weakness R53.1
--- NOTE | 2024-06-23 09:59 | Nephrology Progress Note ---
Date of Service June 23, 2024 Assessment & Plan (1) End stage renal disease on dialysis: (2) Anemia: (3) Renal cell carcinoma: (4) Acute pulmonary edema: (5) Weakness: Plan 68-year-old gentleman with end-stage kidney disease with solitary kidney and hypertensive nephrosclerosis, Started on hemodialysis after having had tunneled dialysis catheter on 04/16/2024. He was admitted with generalized weakness, pulmonary congestion and significant volume overload and over last few days had UF challenge and more than 20 kg weight loss. Had A-fib with RVR and had AV maggie ablation and pacemaker placement on 05/13/2024. Had second AV maggie ablation 2 weeks ago. Has been having difficulty tolerating dialysis with minimum UF, low blood pressure and not able to get out of bed or had any physical therapy. Mr. Guadalupe decided to continue dialysis until 06/24/24 ( his anniversary), then switched to comfort care. Blood pressure has been low. Overall reports otherwise feeling well. --dialysis today, try UF 2 L if tolerated --Midodrine 10 mg given prior to dialysis --Dose medications for less than 10. --he is considering another dialysis Friday and then stop dialysis. Admission and Anticipated Discharge Date Admission Date: April 28, 2024 Subjective Tiny was seen and evaluated during HD this morning. He reports generally feeling well, looking forward to his anniversary tomorrow. He blood pressure dropped significantly with systolic blood pressure 78-80. Review of Systems Review of Systems: Detailed review of system was done and pertinent positives and negatives are mentioned above. Physical Exam Constitutional: WD/WN, vitals as above + ill appearing; no acute distress Eyes: + anicteric sclerae Neck: normal visual inspection Respiratory: Auscultation: + diminished lung sounds Cardiovascular: Rate/Rhythm: regular rate and regular rhythm Heart Sounds: normal S1 and normal S2 Extremities: + edema (2 to 3 + b/l LE edema) and + vascular access device (Rt IJ TDC) Skin: + turgor decreased, + lesion, + skin atr ophy and + ecchymosis Neurologic: no focal motor deficits and not confused Psychiatric: Orientation: alert and oriented x 3 Results & Data Vital Signs (Past 12 Hours) Vital Signs Temp Pulse Pulse Pulse Pulse Resp BP 06/23/24 09:30 58 L 78/55 L 06/23/24 09:29 79 22 06/23/24 09:11 79 104/67 06/23/24 09:03 36.3 C L 82 06/23/24 08:45 06/23/24 08:00 06/23/24 07:36 36.5 C 79 18 06/23/24 07:14 88 24 06/23/24 03:41 75 16 06/22/24 22:45 81 18 BP Pulse Ox O2 Del Method O2 Flow Rate FiO2 06/23/24 09:30 06/23/24 09:29 96 30 06/23/24 09:11 06/23/24 09:03 06/23/24 08:45 96 Nasal Cannula 5 06/23/24 08:00 Nasal Cannula 5 06/23/24 07:36 100/66 92 Room Air, CPAP 06/23/24 07:14 91 BiPAP 30 06/23/24 03:41 99 30 06/22/24 22:45 99 30 PG Care Time/CCT Total # of Minutes Spent Total Time Spent with Patient: Total time spent is greater than 50% in coordination of care (as documented) at patient's floor/unit and/or counseling patient: Coding Level of Care Code 71911 SUB INP/OBS CARE 2/35MIN Diagnoses End stage renal disease on dialysis N18.6; Z99.2 Anemia D64.9 Renal cell carcinoma C64.9 Acute pulmonary edema J81.0 Weakness R53.1
--- NOTE | 2024-06-23 10:09 | Palliative Care Progress Note ---
Date of Service June 22, 2024 Assessment & Plan (1) Palliative care by specialist: Plan: Palliative care will continue to follow for ongoing GOC discussions and family support. (2) Counseling regarding goals of care: Plan: Met again with pt at bedside. His was present. Reviewed previous discussions, Pt/ have no further questions/concerns at present. Pt shared that he will continue HD through weekend and will want to revisit GOC nest week. (3) Quality of life palliative care encounter: Plan: pt states that he continues to tolerate HD well despite hypotension and values his current quality of life. (4) Cough productive of purulent sputum: Plan: Pt c/o cough productive for thick difficult to clear secretions that has been persistent for several days and is making sleep difficult. *Pt states that this has improved with mucomyst and he is now sleeping well. Plan Continue current level of care with HD as indicated. Pt is hopeful to remain on HD and optimize health and cognitive function through June 24 to celebrate 49y of marriage with his . He shared that after that he will not pursue any further HD and "let nature take its course". Palliative care will follow loosely and be available for future ACP/GOC discussions. At this time goals are clear. Please call with any questions or concerns regarding this consultation. Admission and Anticipated Discharge Date Admission Date: April 28, 2024 Subjective Assessed pt at bedside, he was awake and alert and denied any dyspnea or discomfort. He shared that he continues to have little energy, and has accepted that he will remain bed bound due to weakness and hypotension. No visitors at bedside. Pt states that he will had HD yesterday and feels he is tolerating it well. He confirms that he will continue IHD through and will "want to discuss hospice on Friday". Review of Systems Constitutional: as per Subjective / HPI Physical Exam Physical Exam: The patient is awake, alert and oriented 3, well developed and well nourished, normocephalic and atraumatic, lying in bed and in no acute distress. HEENT--PERRL, EOMI, mucous membranes and oropharynx mildly dry Neck--supple. No JVD. No bruits. Thyroid normal, trachea midline, no adenopathy. Heart--normal S1 and S2. No murmurs, rubs or gallops. Lungs--clear bilaterally, no respiratory distress, no accessory muscle use. Abdomen--normal bowel sounds and soft. Extremities--no cyanosis or clubbing. pitting edema. Dermatologic--normal skin turgor, normal color, no abnormal lymph nodes, no rash. Neurologic--no focal deficits Psychiatric--normal affect. Results & Data Vital Signs (Past 12 Hours) Vital Signs Temp Pulse Pulse Pulse Pulse Resp BP 06/23/24 09:30 58 L 78/55 L 06/23/24 09:29 79 22 06/23/24 09:11 79 104/67 06/23/24 09:03 36.3 C L 82 06/23/24 08:45 06/23/24 08:00 06/23/24 07:36 36.5 C 79 18 06/23/24 07:14 88 24 06/23/24 03:41 75 16 06/22/24 22:45 81 18 BP Pulse Ox O2 Del Method O2 Flow Rate FiO2 06/23/24 09:30 06/23/24 09:29 96 30 06/23/24 09:11 06/23/24 09:03 06/23/24 08:45 96 Nasal Cannula 5 06/23/24 08:00 Nasal Cannula 5 06/23/24 07:36 100/66 92 Room Air, CPAP 06/23/24 07:14 91 BiPAP 30 06/23/24 03:41 99 30 06/22/24 22:45 99 30 PG Care Time/CCT Total # of Minutes Spent Total Time Spent with Patient: Total time spent is greater than 50% in coordination of care (as documented) at patient's floor/unit and/or counseling patient: Coding [place] [address] SUB INP/OBS CARE 04/17MIN Patient Type Established History Problem Focused Exam Problem Focused Medical Decision Making Low Complexity Diagnoses Palliative care by specialist Z51.5 Counseling regarding goals of care Z71.89 Quality of life palliative care encounter Z51.5 Cough productive of purulent sputum R05.8
--- NOTE | 2024-06-23 15:41 | Hospitalist Progress Note ---
Date of Service June 23, 2024 Assessment & Plan (1) PAD (peripheral artery disease): (2) Cardiac pacemaker: (3) Atrial fibrillation: (4) End stage renal disease on dialysis: (5) S/P TAVR (transcatheter aortic valve replacement): (6) Autoimmune hepatitis treated with steroids: (7) Chronic diastolic CHF (congestive heart failure): (8) Metastatic renal cell carcinoma: (9) Hypertension: Plan 68-year-old male with past medical history of ESRD on hemodialysis Friday, chronic diastolic congestive heart failure, aortic stenosis status post TAVR, atrial fibrillation, renal cell carcinoma with right nephrectomy and subsequent metastasis to left kidney on Opdivo therapy which has been complicated by immune hepatitis requiring steroid therapy, obesity, SARAH presents to the ED with bilateral lower extremity weakness and found to be positive for rhinovirus/enterovirus and also treated for pneumonia with complicated hospital course. Patient has been seen by palliative care and decision has been made by patient to continue with dialysis until June 24, 2024 which is his 49 anniversary and then he wants to stop dialysis and go on full comfort care and his wishes to in the hospital and not at home #End-stage renal disease on hemodialysis #Acute hypoxic respiratory failure secondary to volume overload/pulmonary edema and underlying pneumonia/rhinovirus/enterovirus infection #Acute on chronic diastolic congestive heart failure with preserved ejection fraction Nephrology is following the patient for dialysis: Plan is for him to get dialysis until June 24, 2024 at which point he will transition to comfort measures Palliative care team is following the patient Patient still wants to continue with hemodialysis as planned till june and will be made GOL[employer] afterwards #Atrial fibrillation chronic, long-standing permanent a.fib followed by outside cardiology near [place] Early in admission had had poor rate control despite meto succ BID + cardizem CD 120mg HS. Intolerant of increase because of hypotension. Was poor candidate for amio w/ abn LFTs and autoimmune hepatitis, prior cardioversion in past not successful AV node ablation with permanent pacemaker insertion on 05/13/[address] Mitchell eventually had recurrent A-fib repeat ablation with Dr Kyel on 05/25/24 He is on anticoagulation with apixaban 2.5 mg p.o. twice daily he plans to be Comfort Measures only after June 24 #Autoimmune hepatitis #Thrombocytopenia #Chronic anemia, likely anemia of chronic kidney disease Patient is on a steroid taper He is currently on prednisone 10 mg daily until 06/09/2024 at which point he stops taper He was initially on PJP prophylaxis which has been discontinued since he is currently on prednisone less than 20 mg/day Patient underwent bone marrow biopsy for anemia and thrombocytopenia and biopsy from 05/24/2024 shows normocellular marrow with trilineage hematopoiesis, erythroid hyperplasia and some dyserythropoiesis, decreased iron stores. Dyserythropoiesis does not meet the criteria for diagnosis of MDS at this point. #Peripheral arterial disease Patient has poor circulation with gangrenous toes, it continues to get worse He wants to continue dialysis and then switch to comfort measures and at this point does not wish for any further interventions Foot wound Wound at the ankle pad wound care following #Hypothyroidism Continue levothyroxine 200 mcg p.o. daily CODE STATUS: DNR/DNI: Palliative care team following patient. No escalation of care at this point. he wants to switch to comfort care only after 06/24 DVT prophylaxis: Patient on apixaban Care plan discussed with patient, nursing staff and updated at bedside, he wants to switch to comfort care only after 06/24 Admission and Anticipated Discharge Date Admission Date: April 28, 2024 Subjective Assessed pt at bedside, he was awake and alert and denied any dyspnea or discomfort. He shared that he continues to have little energy, and has accepted that he will remain bed bound due to weakness and hypotension. No visitors at bedside. Pt states that he will had HD yesterday and feels he is tolerating it well. He confirms that he will continue IHD through and will "want to discuss hospice on Friday". Physical Exam Physical Exam: The patient is awake, alert and oriented 3, well developed and well nourished, normocephalic and atraumatic, lying in bed and in no acute distress. HEENT--PERRL, EOMI, mucous membranes and oropharynx mildly dry Neck--supple. No JVD. No bruits. Thyroid normal, trachea midline, no adenopathy. Heart--normal S1 and S2. No murmurs, rubs or gallops. Lungs--clear bilaterally, no respiratory distress, no accessory muscle use. Abdomen--normal bowel sounds and soft. Extremities--no cyanosis or clubbing. pitting edema. Dermatologic--normal skin turgor, normal color, no abnormal lymph nodes, no rash. Neurologic--no focal deficits Psychiatric--normal affect. Results & Data Results & Data Vital Signs (Past 12 Hours) Vital Signs Temp Pulse Pulse Pulse Pulse Resp BP 06/23/24 12:41 36.6 C 80 06/23/24 12:00 77 85/54 L 06/23/24 11:30 75 79/59 L 06/23/24 11:15 82 75/50 L 06/23/24 11:00 80 74/52 L 06/23/24 10:30 80 80/60 L 06/23/24 10:15 80 94/68 L 06/23/24 10:00 80 79/60 L 06/23/24 09:40 78 78/45 L 06/23/24 09:30 58 L 78/55 L 06/23/24 09:29 79 22 06/23/24 09:11 79 104/67 06/23/24 09:03 36.3 C L 82 06/23/24 08:45 06/23/24 08:00 06/23/24 07:36 36.5 C 79 18 06/23/24 07:14 88 24 06/23/24 03:41 75 16 BP BP Pulse Ox O2 Del Method O2 Flow Rate FiO2 06/23/24 12:41 90/49 L 06/23/24 12:00 06/23/24 11:30 06/23/24 11:15 06/23/24 11:00 06/23/24 10:30 06/23/24 10:15 06/23/24 10:00 06/23/24 09:40 06/23/24 09:30 06/23/24 09:29 96 30 06/23/24 09:11 06/23/24 09:03 06/23/24 08:45 96 Nasal Cannula 5 06/23/24 08:00 Nasal Cannula 5 06/23/24 07:36 100/66 92 Room Air, CPAP 06/23/24 07:14 91 BiPAP 30 06/23/24 03:41 99 30 PG Care Time/CCT Total # of Minutes Spent Total Time Spent with Patient: Total time spent is greater than 50% in coordination of care (as documented) at patient's floor/unit and/or counseling patient: Coding Level of Care Code 74105 SUB INP/OBS CARE MIN Diagnoses PAD (peripheral artery disease) I73.9 Cardiac pacemaker Z95.0 Atrial fibrillation I48.91 Atrial fibrillation type: unspecified End stage renal disease on dialysis N18.6; Z99.2 S/P TAVR (transcatheter aortic valve replacement) Z95.2 Autoimmune hepatitis treated with steroids K75.4 Chronic diastolic CHF (congestive heart failure) I50.32 Metastatic renal cell carcinoma C64.9 Hypertension I10 (3) Atrial fibrillation Atrial fibrillation type: unspecified Qualified Code(s): I48.91 - Unspecified atrial fibrillation
[2024-06-24 07:59] VITALS: BP 126/76; TEMP 98.2
--- NOTE | 2024-06-24 10:26 | Nephrology Progress Note ---
Date of Service June 24, 2024 Assessment & Plan (1) End stage renal disease on dialysis: (2) Anemia: (3) Renal cell carcinoma: (4) Acute pulmonary edema: (5) Weakness: Plan 68-year-old gentleman with end-stage kidney disease with solitary kidney and hypertensive nephrosclerosis, Started on hemodialysis after having had tunneled dialysis catheter on 04/16/2024. He was admitted with generalized weakness, pulmonary congestion and significant volume overload and over last few days had UF challenge and more than 20 kg weight loss. Had A-fib with RVR and had AV maggie ablation and pacemaker placement on 05/13/2024. Had second AV maggie ablation 2 weeks ago. Has been having difficulty tolerating dialysis with minimum UF, low blood pressure and not able to get out of bed or had any physical therapy. Mr. Guadalupe decided to continue dialysis until 06/24/24 ( his wedding anniversary), then switched to comfort care. Blood pressure slightly better this morning overall reports otherwise feeling well. --planning for another dialysis Friday and then stop dialysis. --Midodrine 10 mg given prior to dialysis Admission and Anticipated Discharge Date Admission Date: April 28, 2024 Subjective Tiny was seen and evaluated this morning. He reports generally feeling well. blood pressure seems better today. Yesterday blood pressure dropped signific antly during dialysis and only had about 300 mL UF. Review of Systems Review of Systems: Detailed review of system was done and pertinent positives and negatives are mentioned above. Physical Exam Constitutional: WD/WN, vitals as above + ill appearing; no acute distress Eyes: + anicteric sclerae Respiratory: Auscultation: + diminished lung sounds Cardiovascular: Rate/Rhythm: regular rate and regular rhythm Heart Sounds: normal S1 and normal S2 Extremities: + edema (2 to 3 + b/l LE edema), + vascular access device (Rt IJ TDC) and + AV fistula (Rt IJ TDC) Skin: + turgor decreased, + lesion, + skin atr ophy and + ecchymosis Neurologic: no focal motor deficits and not confused Psychiatric: Orientation: alert and oriented x 3 Results & Data Vital Signs (Past 12 Hours) Vital Signs Temp Pulse Pulse Resp BP Pulse Ox O2 Del Method 06/24/24 07:57 36.8 C 82 18 126/76 100 Nasal Cannula 06/24/24 07:02 82 24 92 06/24/24 07:02 82 24 92 BiPAP 06/24/24 04:03 20 96 06/24/24 01:31 Nasal Cannula 06/23/24 22:58 92 H 30 H 93 O2 Flow Rate FiO2 06/24/24 07:57 6 06/24/24 07:02 30 06/24/24 07:02 30 06/24/24 04:03 30 06/24/24 01:31 5 06/23/24 22:58 30 PG Care Time/CCT Total # of Minutes Spent Total Time Spent with Patient: Total time spent is greater than 50% in coordination of care (as documented) at patient's floor/unit and/or counseling patient: Coding Level of Care Code 17550 SUB INP/OBS CARE Diagnoses End stage renal disease on dialysis N18.6; Z99.2 Anemia D64.9 Renal cell carcinoma C64.9 Acute pulmonary edema J81.0 Weakness R53.1
[2024-06-24] MEDS: LORazepam 2 MG/1 ML VIAL IV PRN (17:40)
--- NOTE | 2024-06-24 19:07 | Hospitalist Progress Note ---
Date of Service June 24, 2024 Assessment & Plan (1) PAD (peripheral artery disease): (2) Cardiac pacemaker: (3) Atrial fibrillation: (4) End stage renal disease on dialysis: (5) S/P TAVR (transcatheter aortic valve replacement): (6) Autoimmune hepatitis treated with steroids: (7) Chronic diastolic CHF (congestive heart failure): (8) Metastatic renal cell carcinoma: (9) Hypertension: Plan 68-year-old male with past medical history of ESRD on hemodialysis Friday, chronic diastolic congestive heart failure, aortic stenosis status post TAVR, atrial fibrillation, renal cell carcinoma with right nephrectomy and subsequent metastasis to left kidney on Opdivo therapy which has been complicated by immune hepatitis requiring steroid therapy, obesity, SARAH presents to the ED with bilateral lower extremity weakness and found to be positive for rhinovirus/enterovirus and also treated for pneumonia with complicated hospital course. Patient has been seen by palliative care and decision has been made by patient to continue with dialysis until June 24, 2024 which is his 49 anniversary and then he wants to stop dialysis and go on full comfort care and his wishes to in the hospital and not at home #End-stage renal disease on hemodialysis #Acute hypoxic respiratory failure secondary to volume overload/pulmonary edema and underlying pneumonia/rhinovirus/enterovirus infection #Acute on chronic diastolic congestive heart failure with preserved ejection fraction Nephrology is following the patient for dialysis: Plan is for him to get dialysis until June 24, 2024 at which point he will transition to comfort measures Palliative care team is following the patient Patient still wants to continue with hemodialysis as planned till june and will be made [employer] afterwards #Atrial fibrillation chronic, long-standing permanent a.fib followed by outside cardiology near [place] Early in admission had had poor rate control despite meto succ BID + cardizem CD 120mg HS. Intolerant of increase because of hypotension. Was poor candidate for amio w/ abn LFTs and autoimmune hepatitis, prior cardioversion in past not successful AV node ablation with permanent pacemaker insertion on 05/13/[address] Mitchell eventually had recurrent A-fib repeat ablation with Dr Kyle on 05/25/24 He is on anticoagulation with apixaban 2.5 mg p.o. twice daily he plans to be Comfort Measures only after June 24 #Autoimmune hepatitis #Thrombocytopenia #Chronic anemia, likely anemia of chronic kidney disease Patient is on a steroid taper He is currently on prednisone 10 mg daily until 06/09/2024 at which point he stops taper He was initially on PJP prophylaxis which has been discontinued since he is currently on prednisone less than 20 mg/day Patient underwent bone marrow biopsy for anemia and thrombocytopenia and biopsy from 05/24/2024 shows normocellular marrow with trilineage hematopoiesis, erythroid hyperplasia and some dyserythropoiesis, decreased iron stores. Dyserythropoiesis does not meet the criteria for diagnosis of MDS at this point. #Peripheral arterial disease Patient has poor circulation with gangrenous toes, it continues to get worse He wants to continue dialysis and then switch to comfort measures and at this point does not wish for any further interventions Foot wound Wound at the ankle pad wound care following #Hypothyroidism Continue levothyroxine 200 mcg p.o. daily CODE STATUS: DNR/DNI: Palliative care team following patient. No escalation of care at this point. he wants to switch to comfort care only after 06/24 DVT prophylaxis: Patient on apixaban Care plan discussed with patient, nursing staff and updated at bedside, he wants to switch to comfort care only after 06/24 Admission and Anticipated Discharge Date Admission Date: April 28, 2024 Subjective Today patient had an anniversary this was their 49th anniversary patient is currently struggling with breathing he is on BiPAP ordered Ativan and morphine for him he wants to get dialysis tomorrow and then go to comfort care Review of Systems Review of Systems: Positive for shortness of breath and anxiety patient is on BiPAP he is able to tolerate BiPAP and talk Physical Exam Physical Exam: The patient is awake, alert and oriented 3, well developed and well nourished, normocephalic and atraumatic, lying in bed and in no acute distress. HEENT--PERRL, EOMI, mucous membranes and oropharynx mildly dry Neck--supple. No JVD. No bruits. Thyroid normal, trachea midline, no adenopathy. Heart--normal S1 and S2. No murmurs, rubs or gallops. Lungs--clear bilaterally, no respiratory distress, no accessory muscle use. Abdomen--normal bowel sounds and soft. Extremities--no cyanosis or clubbing. pitting edema. Dermatologic--normal skin turgor, normal color, no abnormal lymph nodes, no rash. Neurologic--no focal deficits Psychiatric--normal affect. Results & Data Results & Data Vital Signs (Past 12 Hours) Vital Signs Temp Pulse Pulse Resp BP Pulse Ox O2 Del Method 06/24/24 16:42 84 32 H 94 06/24/24 07:57 36.8 C 82 18 126/76 100 Nasal Cannula 06/24/24 07:25 Nasal Cannula, BiPAP O2 Flow Rate FiO2 06/24/24 16:42 30 06/24/24 07:57 6 06/24/24 07:25 5 PG Care Time/CCT Total # of Minutes Spent Total Time Spent with Patient: Total time spent is greater than 50% in coordination of care (as documented) at patient's floor/unit and/or counseling patient: Coding Level of Care Code 39691 SUB INP/OBS CARE 2/35MIN Diagnoses PAD (peripheral artery disease) I73.9 Cardiac pacemaker Z95.0 Atrial fibrillation I48.91 Atrial fibrillation type: unspecified End stage renal disease on dialysis N18.6; Z99.2 S/P TAVR (transcatheter aortic valve replacement) Z95.2 Autoimmune hepatitis treated with steroids K75.4 Chronic diastolic CHF (congestive heart failure) I50.32 Metastatic renal cell carcinoma C64.9 Hypertension I10 (3) Atrial fibrillation Atrial fibrillation type: unspecified Qualified Code(s): I48.91 - Unspecified atrial fibrillation
[2024-06-24] MEDS: MoRPHine SULFATE 2 MG/ML CARP IV PRN (22:20)
[2024-06-25 02:29] VITALS: PULSE 84; RESP 12; O2SAT 95
--- NOTE | 2024-06-25 04:20 | Death Pronouncement Note ---
Date of Service June 25, 2024 Pronouncement Note Admission Date Admission Date: April 28, 2024 Contributing Factors (1) Acute hypoxic respiratory failure: (2) End stage renal disease on dialysis: (3) PAD (peripheral artery disease): (4) Cardiac pacemaker: (5) Atrial fibrillation: (6) S/P TAVR (transcatheter aortic valve replacement): (7) Autoimmune hepatitis treated with steroids: (8) Chronic diastolic CHF (congestive heart failure): (9) Metastatic renal cell carcinoma: (10) Hypertension: Summary Additional details: I was called to pronounce the of Chase Guadalupe ( 1955) by BANDAR Tillman on 06/25/2024 due to being found with spontaneous cessation of breathing. Upon entering the room, patient was found to be in a terminal state. They were unresponsive to, and did not withdrawal from, verbal or tactile stimuli. They were unresponsive to corneal reflexes. On cardiopulmonary exam, they were found to be without detectable radial pulses, and without spontaneous heart tones or respirations. Time of was pronounced by me on 06/25/2024 at 0412. Attending physician was notified. was in the room upon my initial arrival and opted to step out for pronouncement. Signed: Anna Iqbal DO Additional Data Attending physician: Khushi Haines MD Resident Activity Tracking Resident Involvement: Resident Care Provided Care Provided: Adult Hospital Medicine
--- NOTE | 2024-06-25 09:32 | Discharge Summary ---
Date of Service June 25, 2024 Admission HPI Per Admitting Provider 68-year-old gentleman PMHx ESRD on dialysis (M/W/F), CHF, s/p TAVR, A-fib, RCC, HTN, hypercholesterolemia, hypothyroidism, and SARAH presenting to ED for BLE weakness starting on the day of arrival. Patient has renal cell carcinoma on treatment and dialysis. Was going to go to dialysis on the day of arrival, but the weakness in his legs was concerning to him so he came to the ED. helps provide history. States that on the day of arrival she was helping the patient moved from his chair to standing and he was only able to stand for a few seconds and then felt weak and had to sit back down. This occurred on 2 occasions the day of arrival. Instead of going to dialysis, the patient's called the ambulance and brought him to the ED. Additionally, the patient has been having coughing over the past week, producing a clear and sometimes blood-tinged sputum. States that he becomes more SOB with laying flat, so he often sleeps upright. Has had swelling in BLE and feels that overall it has improved but on the day of arrival his legs feel larger than normal as he missed his HD the same day. He denies fever/chills, chest pain, palpitations, abdominal pain, N/V/D/C, numbness/tingling, or falls. ED workup reveals leukocytosis 11.37, H&H 8.9/9.2 (microcytic, hypochromic pattern), WNL VBG's, CMP with anion gap of 13, BUN 82, creatinine 5.54, and lactate 2.6 -> 2.3 on repeat. Total bilirubin is 2.0, alkaline phosphatase is 167, troponin went from 103.3-> 92.3. Protein 5.4, albumin 2.7, and Pro-Long 1.35. UA is negative for bacteria, and bio fire is positive for entero-/rhinovirus. CXR reveals improved pulmonary edema but new bilateral basilar infiltrates and a small pleural effusion. Head CT with moderate parenchymal volume loss but no acute findings. EKG at time of arrival was A-fib with RVR (112 bpm). Patient was started on cefepime in ED. Please see Dr. Tucker's attestation for adjustments/additions to treatment plan. Admission Exam (Per Admitting) Constitutional pronounce the of Chase Guadalupe ( 1955) by BANDAR Tillman on 06/25/2024 due to being found with spontaneous cessation of breathing. Upon entering the room, patient was found to be in a terminal state. They were unresponsive to, and did not withdrawal from, verbal or tactile stimuli. They were unresponsive to corneal reflexes. On cardiopulmonary exam, they were found to be without detectable radial pulses, and without spontaneous heart tones or respirations. Time of was pronounced by me on 06/25/2024 at 0412. Attending physician was notified. was in the room upon my initial arrival and opted to step out for pronouncement. Signed: Anna Iqbal DO Discharge Data Consultations 04/28/24 19:21 ED Decision to Admit Stat 04/28/24 21:08 Consult Nephrology Routine 05/10/24 08:00 Consult Gastroenterology Routine 05/10/24 11:09 Consult Cardiology Routine 05/24/24 08:36 Consult Vascular Surgery Routine 06/03/24 10:55 Consult Palliative Care Routine Procedures Performed Operation Date: 05/25/24 08:00 Actual Procedures p AV Node Ablation - Estevan Kyle MD Hospital Course (1) PAD (peripheral artery disease): (2) Cardiac pacemaker: (3) Atrial fibrillation: (4) End stage renal disease on dialysis: (5) S/P TAVR (transcatheter aortic valve replacement): (6) Autoimmune hepatitis treated with steroids: (7) Chronic diastolic CHF (congestive heart failure): (8) Metastatic renal cell carcinoma: (9) Hypertension: Plan 68-year-old male with past medical history of ESRD on hemodialysis Friday, chronic diastolic congestive heart failure, aortic stenosis status post TAVR, atrial fibrillation, renal cell carcinoma with right nephrectomy and subsequent metastasis to left kidney on Opdivo therapy which has been complicated by immune hepatitis requiring steroid therapy, obesity, SARAH presents to the ED with bilateral lower extremity weakness and found to be positive for rhinovirus/enterovirus and also treated for pneumonia with complicated hospital course. Patient has been seen by palliative care and decision has been made by patient to continue with dialysis until June 24, 2024 which is his 49th anniversary and then he wants to stop dialysis and go on full comfort care and his wishes to in the hospital and not at home # Patient at 4:12 am from spontaneous cessation of breathing due to acute repiratory failure. due to pulmonary edema due to End stage renal failure . He was on comfort care Coding Level of Care Code 65848 INP/OBS DISCH >30 MIN Diagnoses PAD (peripheral artery disease) I73.9 Cardiac pacemaker Z95.0 Atrial fibrillation I48.91 Atrial fibrillation type: unspecified End stage renal disease on dialysis N18.6; Z99.2 S/P TAVR (transcatheter aortic valve replacement) Z95.2 Autoimmune hepatitis treated with steroids K75.4 Chronic diastolic CHF (congestive heart failure) I50.32 Metastatic renal cell carcinoma C64.9 Hypertension I10 Time Spent (min) 30
== END 2024-06-25 10:12 | disposition expired | DRG 242 ==
LOC: ED 14:16 → SUATTDRO 20:49 → EDINP 20:49 → 2S 04-29 21:08 → 2N 05-05 18:27 → 1E 05-13 14:10 → 2S 05-14 21:38 → 3E 05-17 21:09 → 4W 05-25 12:07 → 3E 05-26 19:12 → 4W 05-30 01:54 → 3E 06-06 14:32